=== PATIENT | male | born 1970 | race African-American/Black ===

== ENCOUNTER 2016-06-03 08:11 | Inpatient (IN) | payer MEDICAID, OTHER ==
[~2016-06-03] VITALS: Ht 162.6 cm; Wt 66.5 kg
[~2016-06-03 08:11] MED LIST: AMLO10TA2 PO; BENA20TA2 PO; CALC667C PO; FOLI0.8T2 PO; LABE200T8 PO; MINO2.5T PO; Metoclopramide Hcl PO; PANT40TA2 PO
[2016-06-03] MEDS ORDERED: hydrALAZINE HCL 20 MG/1 ML VIAL IV ONE (08:30)
[2016-06-03] MEDS ORDERED: HYDROMORPHONE 1 MG/1 ML DISP.SYRIN IV ONE (08:30)
[2016-06-03] MEDS ORDERED: ONDANSETRON 4 MG/2 ML VIAL IV ONE (08:30)
[2016-06-03] MEDS ORDERED: ONDANSETRON 4 MG/2 ML VIAL ONE (08:52)
[2016-06-03] MEDS ORDERED: HYDROMORPHONE 1 MG/1 ML DISP.SYRIN ONE (08:52)
[2016-06-03] MEDS ORDERED: hydrALAZINE HCL 20 MG/1 ML VIAL ONE (08:53)
--- NOTE | 2016-06-03 08:55 | NUR ---
Pt came for evaluation of his CANALES. A/O x 4. Stated "left in a middle of dialysis".
[2016-06-03 09:17] LABS: BASOPHILS % (AUTO) 0.6 % (0.0-2.0); EOSINOPHILS # (AUTO) 0.1 K/uL (0.0-0.7); EOSINOPHILS % (AUTO) 2.5 % (0.0-7.0); HEMATOCRIT 38.1 % (40.0-50.0); HEMOGLOBIN 12.6 g/dL (14.0-18.0); LYMPHOCYTES # (AUTO) 1.1 K/uL (0.8-4.8); MEAN CORPUSCULAR HEMOGLOBIN 29.4 uug (27.0-31.0); MEAN CORPUSCULAR HGB CONC 33 g/dL (32.0-37.0); MEAN CORPUSCULAR VOLUME 89.2 fL (82.0-92.0); MONOCYTES # (AUTO) 0.3 K/uL (0.1-1.30); MONOCYTES % (AUTO) 7.5 % (0.0-11.0); NEUTROPHILS # (AUTO) 2.2 K/uL (1.8-8.9); NEUTROPHILS % (AUTO) 60.4 % (38.5-71.5); PLATELET COUNT (AUTO) 252 K/uL (150-450); RED BLOOD CELL COUNT(AUTO) 4.27 MIL/uL (4.70-6.10); RED CELL DISTRIBUTION WIDTH 15.7 % (11.5-14.5); WHITE BLOOD COUNT (AUTO) 3.7 K/uL (4.0-11.2)
[2016-06-03 09:21] LABS: CALCIUM 8.5 mg/dL (8.5-10.1); POTASSIUM 3.7 mmol/L (3.5-5.1)
[2016-06-03 09:26] LABS: CREATININE 13.6 mg/dL (0.6-1.3)
[2016-06-03] MEDS ORDERED: LABETALOL HCL 100 MG/20 ML VIAL IV ONE ×2 (09:30→10:00)
--- NOTE | 2016-06-03 09:30 | NUR ---
Pt monitored for hypertension, medicated as ordered for CANALES and helpful; medicated for high BP; To be admitted to telemetry as indicated.
[2016-06-03] MEDS ORDERED: LABETALOL HCL 100 MG/20 ML VIAL ONE ×2 (09:42→10:21)
[2016-06-03] MEDS ORDERED: ASPIRIN 325 MG TABLET PO ONE (10:30)
[2016-06-03] MEDS ORDERED: ASPIRIN 325 MG TABLET ONE (10:33)
--- NOTE | 2016-06-03 10:57 | NUR ---
Pt. admitted to telemetry , under care of Dr. Laguna. Belongs List completed.
[2016-06-03 11:34] VITALS: BP 193/133
--- NOTE | 2016-06-03 12:00 | NUR ---
REPORT RECIEVED BY YESSENIA. PATIENT WAS BROUGHT BY ALBERT. ADMISSION ASSESSMENTS CHARTED. IV INTACT. BP STILL HIGH 194/121. DR. ALVARES NOTIFIED OF ADMISSION, WAITING FOR FURTHER ORDERS. WILL CONTINUE MONITORING.
[2016-06-03] MEDS: CALCIUM ACETATE 667 MG CAPSULE PO SCH ×2 (14:40→17:02)
[2016-06-03] MEDS: BENAZEPRIL HCL 20 MG TABLET PO SCH (14:40)
[2016-06-03] MEDS: FOLIC ACID/VITAMIN B COMP W-C TABLET PO SCH (14:40)
[2016-06-03] MEDS: MINOXIDIL 2.5 MG TABLET PO SCH ×2 (14:41→21:00)
[2016-06-03] MEDS: LABETALOL HCL 200 MG TABLET PO SCH ×2 (14:41→21:00)
[2016-06-03 16:13] VITALS: BP 168/112
[2016-06-03] MEDS: AMLODIPINE 10 MG TABLET PO SCH (17:02)
--- NOTE | 2016-06-03 17:20 | NUR ---
PATIENT C/O OF SEVERE HEADACHE. MD NOTIFIED. ORDERED DILAUDID. WILL BE ADMINISTERED.
[2016-06-03] MEDS: HYDROMORPHONE 1 MG/1 ML DISP.SYRIN IV PRN ×2 (17:38→23:28)
--- NOTE | 2016-06-03 18:18 | NUR ---
Patient nauseas during the day, vomit 200 cc. He is been dialyzed at this moment. Will continue monitoring.
[2016-06-03 20:00] VITALS: BP 143/90
--- NOTE | 2016-06-03 21:16 | NUR ---
PT HAD DIALYSIS, 1500 ML FLUID WAS TAKEN OUT. AV SHUNT ON LEFT FA INTACT, NO BLEEDING NOTED.
--- NOTE | 2016-06-03 21:42 | NUR ---
PT REFUSED MINOXIDIL, AND TRANDATE @ THIS TIME. BP 143/70 HR 66.
--- NOTE | 2016-06-03 23:30 | NUR ---
PT REQUESTED TO WARM UP HIS DINNER MEAL, ALSO C/O GENERALIZED PAIN, WAS GIVEN WITH DILAUDID PRESCRIBED. WILL CONT TO MONITOR
[2016-06-04 00:14] VITALS: BP 173/105
--- NOTE | 2016-06-04 00:26 | NUR ---
BP 173/105, HR 99. OFFERED BP MEDS BUT PT STILL REFUSING.. EPISODE OF VOMITING FOOD PARTICLES ABOUT 500ML. PAGED DR. RAMESH .
[2016-06-04 05:00] VITALS: BP 140/97
[2016-06-04] MEDS: PANTOPRAZOLE SODIUM 40 MG TABLET.DR PO SCH (06:07)
[2016-06-04] MEDS: HYDROMORPHONE 1 MG/1 ML DISP.SYRIN IV PRN ×2 (06:08→19:56)
--- NOTE | 2016-06-04 06:59 | NUR ---
BP RECHECKED IN AM 140/97, HR 98. PT VOMITED 3X DURING SHIFT, CALLED DR. RAMESH, NO RESPONSE. PT WAS GIVEN ICE CHIPS, PT STATED IT GAVE SOME RELIEF.
[2016-06-04] MEDS: LABETALOL HCL 200 MG TABLET PO SCH ×2 (09:06→21:40)
[2016-06-04] MEDS: BENAZEPRIL HCL 20 MG TABLET PO SCH (09:06)
[2016-06-04] MEDS: FOLIC ACID/VITAMIN B COMP W-C TABLET PO SCH (09:07)
[2016-06-04] MEDS: MINOXIDIL 2.5 MG TABLET PO SCH ×2 (09:07→21:40)
[2016-06-04] MEDS: AMLODIPINE 10 MG TABLET PO SCH ×2 (09:07→17:36)
[2016-06-04] MEDS: CALCIUM ACETATE 667 MG CAPSULE PO SCH ×3 (09:20→17:36)
[2016-06-04 11:41] VITALS: BP 128/83
--- NOTE | 2016-06-04 12:28 | NUR ---
PATIENT IN BED RESTING. NO S/S OF DISTRESS NOTED. COMPLIANT WITH BP MEDICATION, EXCEPT FOR PHOSLO, STATING THAT MAKES HIM NAUSEAS. NO C/O OF VOMITING DURING MY SHIFT, BUT NAUSEAS STILL CONTINUE TO BE AN ISSUE. ZOFRAN WAS ORDERED BY . SAFETY AND COMFORT PROVIDED. WILL CONTINUE MONITORING.
[2016-06-04] MEDS: ONDANSETRON 4 MG/2 ML VIAL IV PRN (14:43)
[2016-06-04 16:03] VITALS: BP 125/76
--- NOTE | 2016-06-04 18:00 | NUR ---
PATIENT IN BED WATCHING TV. NO C/O OF PAIN AT THE MOMENT. NAUSEA MEDICATION WAS EFFECTIVE, PATIENT VERBALIZED NAUSEAS WERE GONE AND HE IS ABLE TO EAT NOW. REFUSED TO TAKE HIS PHOSLO MORNING AND AFTERNOON. BP HAVE BEEN CONTROLLED, WNL NOW. DIALYSIS WAS DONE TODAY, 900CC WERE TAKEN OUT, RN SAID THAT PATIENT REFUSED TO CONTINUE WITH TREATMENT SO SHE HAD TO STOP. SAFETY AND COMFORT PROVIDED BY STAFF. WILL CONTINUE MONITORING.
[2016-06-04 19:00] VITALS: BP 130/84
--- NOTE | 2016-06-04 19:10 | NUR ---
PATIENT ALERT ORIENTED, V/S WNL NO COMPLAIN OF PAIN AT THIS TIME, NO S/S BLEEDING FROM SHUNT CONT TO MONITOR.
[2016-06-05] MEDS: HYDROMORPHONE 1 MG/1 ML DISP.SYRIN IV PRN ×3 (02:10→18:37)
--- NOTE | 2016-06-05 04:58 | NUR ---
PATIENT SLEPT MOST OF THE NIGHT, PATIENT ON PAIN MANAGEMENT, PAIN MEDS EFFECTIVE AT THIS TIME. BP STABLE, COMPLIANT WITH MEDICATIONS AT THIS TIME.
[2016-06-05 05:00] VITALS: BP 102/64
[2016-06-05] MEDS: PANTOPRAZOLE SODIUM 40 MG TABLET.DR PO SCH ×2 (06:12→09:18)
[2016-06-05] MEDS: CALCIUM ACETATE 667 MG CAPSULE PO SCH ×3 (08:00→17:00)
[2016-06-05] MEDS: FOLIC ACID/VITAMIN B COMP W-C TABLET PO SCH (09:16)
[2016-06-05] MEDS: BENAZEPRIL HCL 20 MG TABLET PO SCH (09:17)
[2016-06-05] MEDS: LABETALOL HCL 200 MG TABLET PO SCH ×2 (09:17→20:09)
[2016-06-05] MEDS: MINOXIDIL 2.5 MG TABLET PO SCH ×2 (09:18→20:09)
[2016-06-05] MEDS: AMLODIPINE 10 MG TABLET PO SCH ×2 (09:18→17:00)
[2016-06-05 11:47] VITALS: BP 90/52
[2016-06-05] MEDS: ONDANSETRON 4 MG/2 ML VIAL IV PRN (13:56)
[2016-06-05 19:00] VITALS: BP 99/64
--- NOTE | 2016-06-05 20:10 | NUR ---
MINOXIDIL AND LABETALOL HELD. BP 99/64
[2016-06-06] MEDS: HYDROMORPHONE 1 MG/1 ML DISP.SYRIN IV PRN (00:35)
[2016-06-06 04:00] VITALS: BP 96/68
--- NOTE | 2016-06-06 06:22 | NUR ---
END OF SHIFT NOTE: PT IN BED RESTING, IN NO ACUTE SIGNS OF DISTRESS. NO C/O N/V. C/O SHOULDER PAIN, CONTROLLED WITH DILAUDID PRESCRIBED. BP MEDS HELD DUE TO LOW BP. SAFETY MAINTAINED. CALL LIGHT WITHIN REACH.
[2016-06-06] MEDS: CALCIUM ACETATE 667 MG CAPSULE PO SCH ×2 (08:00→11:52)
[2016-06-06] MEDS: AMLODIPINE 10 MG TABLET PO SCH (08:27)
[2016-06-06] MEDS: MINOXIDIL 2.5 MG TABLET PO SCH (08:27)
[2016-06-06] MEDS: FOLIC ACID/VITAMIN B COMP W-C TABLET PO SCH (08:27)
[2016-06-06] MEDS: BENAZEPRIL HCL 20 MG TABLET PO SCH (08:27)
[2016-06-06] MEDS: LABETALOL HCL 200 MG TABLET PO SCH (08:28)
[2016-06-06 11:17] VITALS: BP 105/73
--- NOTE | 2016-06-06 13:30 | NUR ---
Patient in bed resting in no acute distress. Antihypertensives not given d/t to blood pressure on the low side without symptoms. Refused other morning meds. Patient ordered to be discharged by Dr. Laguna today. Patient started c/o pain and "not feeling good" Requested pain and nausea medication which was administered as ordered. Discharge instructions given and with copies given to patient. Will continue monitoring.
--- NOTE | 2016-06-06 16:00 | NUR ---
Patient is sleeping soundly in no apparent pain with adequate respiratory function noted.
--- NOTE | 2016-06-06 17:00 | NUR ---
PT IS READY FOR DISCHARGE WITH STABLE VITAL SIGNS AND WITHOUT C/O PAIN OR IN ACUTE DISTRESS. DISCHARGED HOME IN STABLE CONDITION BY CAR.
== END 2016-06-06 17:00 | disposition home or self-care (01) | DRG 194 ==
LOC: ER 08:13 → TELE 10:33 → MED 06-04 17:40
PROVIDERS: ADMIT Internal Medicine; ATTEND Internal Medicine
PROC: 5A1D60Z (ICD-10-PCS; principal; 2016-06-03)
DX: I13.2 Hypertensive heart and chronic kidney disease with heart failure and with stage 5 chronic kidney disease, or end stage renal disease (principal); N18.6 End stage renal disease; Z99.2 Dependence on renal dialysis; D64.9 Anemia, unspecified; K21.9 Gastro-esophageal reflux disease without esophagitis; K29.70 Gastritis, unspecified, without bleeding; Z91.19 Patient's noncompliance with other medical treatment and regimen; F17.200 Nicotine dependence, unspecified, uncomplicated; F12.90 Cannabis use, unspecified, uncomplicated; G89.4 Chronic pain syndrome; R07.9 Chest pain, unspecified; Z91.15 Patient's noncompliance with renal dialysis; I50.32 Chronic diastolic (congestive) heart failure
CPT/HCPCS: 36415; 70030-TC; 70450; 71010; 85025; 90937; 93005; A4663; J0360; J1170; J2405; J3490

== ENCOUNTER 2016-06-24 19:16 | Inpatient (IN) | payer OTHER ==
[~2016-06-24] VITALS: Ht 170.2 cm; Wt 72.6 kg
[2016-06-24] MEDS ORDERED: CLONIDINE HCL 0.2 MG TABLET PO ONE (20:00)
[2016-06-24] MEDS ORDERED: hydrALAZINE HCL 20 MG/1 ML VIAL IV ONE ×2 (20:00→20:30)
--- NOTE | 2016-06-24 20:12 | NUR ---
PT HAVING NOSEBLEED, PT RESTLESS , BP HIGH, SL TO RT FA INSERTED, GIVEN HYDRALAZINE IV, PT ENCOURAGED TO RELAX .
[2016-06-24 20:13] LABS: BASOPHILS % (AUTO) 0.5 % (0.0-2.0); EOSINOPHILS # (AUTO) 0.1 K/uL (0.0-0.7); EOSINOPHILS % (AUTO) 1.4 % (0.0-7.0); HEMATOCRIT 28.5 % (36.7-47.1); HEMOGLOBIN 9.5 g/dL (12.5-16.3); LYMPHOCYTES # (AUTO) 1.7 K/uL (20.0-40.0); LYMPHOCYTES % (AUTO) 18.2 % (20.5-51.5); MEAN CORPUSCULAR HEMOGLOBIN 29.2 uug (23.8-33.4); MEAN CORPUSCULAR HGB CONC 33 g/dL (32.5-36.3); MEAN CORPUSCULAR VOLUME 87.5 fL (73.0-96.2); MONOCYTES # (AUTO) 0.5 K/uL (2.0-10.0); MONOCYTES % (AUTO) 5.8 % (0.0-11.0); NEUTROPHILS # (AUTO) 6.8 K/uL (1.8-8.9); NEUTROPHILS % (AUTO) 74.1 % (38.5-71.5); PLATELET COUNT (AUTO) 324 K/uL (152-348); RED BLOOD CELL COUNT(AUTO) 3.25 MIL/uL (4.06-5.63); RED CELL DISTRIBUTION WIDTH 15.1 % (12.1-16.2); WHITE BLOOD COUNT (AUTO) 9.1 K/uL (3.6-10.2)
[2016-06-24] MEDS ORDERED: CLONIDINE HCL 0.2 MG TABLET ONE (20:14)
[2016-06-24] MEDS ORDERED: hydrALAZINE HCL 20 MG/1 ML VIAL ONE ×2 (20:15→20:42)
[2016-06-24 20:22] LABS: POTASSIUM 5.3 mmol/L (3.5-5.1)
[2016-06-24 20:24] LABS: CREATININE 18.1 mg/dL (0.6-1.3)
--- NOTE | 2016-06-24 20:40 | NUR ---
2ND HYDRALAZINE IV DOSE GIVEN FOR HIGH SBP 205,PT TRYING TO RELAX.SUPPORTIVE MEASURES DONE.
[2016-06-24] MEDS ORDERED: LABETALOL HCL 100 MG/20 ML VIAL IV ONE (21:00)
[2016-06-24] MEDS ORDERED: LABETALOL 20 MG/4 ML VIAL IV ONE (21:09)
[2016-06-24] MEDS ORDERED: ONDANSETRON 4 MG/2 ML VIAL IV ONE ×2 (21:30)
[2016-06-24] MEDS ORDERED: ONDANSETRON 4 MG/2 ML VIAL ONE ×2 (21:32→21:33)
--- NOTE | 2016-06-24 21:35 | NUR ---
PT VOMITED 2X BROWNISH EMESIS, ZOFRAN IV GIVEN.
--- NOTE | 2016-06-24 23:20 | NUR ---
VALE speaking with [facility] Nephrology (Dr. Laguna).
--- NOTE | 2016-06-24 23:50 | NUR ---
Pt. admitted to TELE, under care of Dr. Laguna Belongs List completed
[2016-06-25] VITALS (18 sets, daily range): BP systolic 114–183; BP diastolic 70–130
--- NOTE | 2016-06-25 01:00 | NUR ---
ADMITTED PT ALERT,ORIENTED AMBULATORY, DENIES ANY CHEST PAIN AT THIS TIME, NOSEBLEED STOPPED, NO NASAL PACKING, BP ELEVATED, PT STATED HE NORMALLY RUNS HIGH, ASYMPTOMATIC, NO HEADACHE, L AVF ,R HEPLOCK, REFUSED BLOOD DRAW PT WANTED RESCHEDULE NEXT DRAW AT 0600. WILL CONTINUE TO MONITOR.CALL LIGHT AT REACHED
--- NOTE | 2016-06-25 04:45 | NUR ---
PAGED REGARDING PT BP 183/110 HR 95 WAS ABLE TO CONTACT AND SPOKE TO DR. ALVARES BUT GOT DISCONNECTED. MADE ANOTHER CALL BUT MD DIDN'T ANSWER THE CALL, ANSWERING SERVICE JUST LEFT A MESSAGE. PT ASLEEP AT THIS TIME, NO COMPLAINS.
[2016-06-25] MEDS ORDERED: ACETAMINOPHEN 325 MG TABLET PO PRN (05:30)
[2016-06-25] MEDS: BENAZEPRIL HCL 20 MG TABLET PO SCH (05:37)
[2016-06-25] MEDS ORDERED: AMLODIPINE 5 MG TABLET ONE (05:41)
[2016-06-25] MEDS ORDERED: BENAZEPRIL HCL 20 MG TABLET ONE (05:42)
[2016-06-25] MEDS ORDERED: [UNRECOGNIZED DRUG - OTHER] PO SCH (07:30)
[2016-06-25] MEDS: PANTOPRAZOLE SODIUM 40 MG TABLET.DR PO SCH (07:41)
[2016-06-25] MEDS: METOCLOPRAMIDE HCL 5 MG TABLET PO SCH ×3 (07:43→18:27)
[2016-06-25] MEDS ORDERED: DESMOPRESSIN 0.1 MG TABLET PO SCH (07:45)
[2016-06-25] MEDS: HYDROMORPHONE 1 MG/1 ML DISP.SYRIN IV PRN ×2 (07:57→23:53)
--- NOTE | 2016-06-25 08:00 | NUR ---
C/O GENERALIZED PAIN 10/09, N/V. MEDICATED WITH DILAUDID AND ZOFRAN BP 174/114 ROUTINE BP MEDS GIVEN. NO SIGNS OF DISTRESS. CLOSELY MONITORED
[2016-06-25] MEDS: ONDANSETRON 4 MG/2 ML VIAL IV PRN (08:01)
[2016-06-25] MEDS: MINOXIDIL 2.5 MG TABLET PO SCH ×2 (08:02→21:16)
[2016-06-25] MEDS: AMLODIPINE 5 MG TABLET PO SCH ×2 (08:03→21:18)
[2016-06-25] MEDS: FOLIC ACID/VITAMIN B COMP W-C TABLET PO SCH (08:03)
[2016-06-25] MEDS: LABETALOL HCL 200 MG TABLET PO SCH ×2 (08:03→21:00)
[2016-06-25] MEDS: CALCIUM ACETATE 667 MG CAPSULE PO SCH ×4 (08:03→18:00)
[2016-06-25] MEDS ORDERED: AMLODIPINE 10 MG TABLET PO SCH (09:00)
--- NOTE | 2016-06-25 11:30 | NUR ---
DR ALVARES CALLED CT HEAD POSITIVE FOR BLEDING, GAVE ORDER FOR PATIENT TO TRANSFER TO ICU FOR HIGHER LEVEL OF CARE
--- NOTE | 2016-06-25 11:45 | NUR ---
SHAKER REPAIRER AND ICU NOTIFIED, PT TRANSFERRED TO ICC, AWAKE ALERT AND COHERENT. REPORT GIVEN TO ICU STAFF
--- NOTE | 2016-06-25 12:08 | NUR ---
At this time patient brought down from [facility]. unit. awake, alert oriented neurologically intact on room air. swallow evaluation done patient able to swallow with no coughing or signs of aspiration.
--- NOTE | 2016-06-25 13:05 | NUR ---
patient refused phoslo medication.
--- NOTE | 2016-06-25 13:45 | NUR ---
Raúl RODRÍGUEZ for neurosurgeon in the unit to see lázaro, full report given. See orders.
--- NOTE | 2016-06-25 14:52 | NUR ---
At this time patient refusing to have blood pressure cuff and pulse ox. on. Educated on the need to monitor blood pressure and saturation. on.
--- NOTE | 2016-06-25 15:11 | NUR ---
At this time patient removed pulse oxy-meter.
[2016-06-26] VITALS (11 sets, daily range): BP systolic 90–132; BP diastolic 51–75
[2016-06-26 05:02] LABS: BASOPHILS % (AUTO) 0.3 % (0.0-2.0); EOSINOPHILS # (AUTO) 0.1 K/uL (0.0-0.7); EOSINOPHILS % (AUTO) 1.3 % (0.0-7.0); HEMATOCRIT 22.3 % (36.7-47.1); HEMOGLOBIN 7.6 g/dL (12.5-16.3); LYMPHOCYTES # (AUTO) 1.1 K/uL (20.0-40.0); LYMPHOCYTES % (AUTO) 27.8 % (20.5-51.5); MEAN CORPUSCULAR HEMOGLOBIN 29.6 uug (23.8-33.4); MEAN CORPUSCULAR HGB CONC 34 g/dL (32.5-36.3); MEAN CORPUSCULAR VOLUME 86.8 fL (73.0-96.2); MONOCYTES # (AUTO) 0.3 K/uL (2.0-10.0); MONOCYTES % (AUTO) 8.1 % (0.0-11.0); NEUTROPHILS # (AUTO) 2.3 K/uL (1.8-8.9); NEUTROPHILS % (AUTO) 62.5 % (38.5-71.5); PLATELET COUNT (AUTO) 296 K/uL (152-348); RED BLOOD CELL COUNT(AUTO) 2.57 MIL/uL (4.06-5.63); RED CELL DISTRIBUTION WIDTH 14.9 % (12.1-16.2); WHITE BLOOD COUNT (AUTO) 3.9 K/uL (3.6-10.2)
[2016-06-26 05:09] LABS: ALBUMIN 2.9 g/dL (3.4-5.0); BILIRUBIN,TOTAL 0.7 mg/dL (0.2-1.0); CALCIUM 8.1 mg/dL (8.5-10.1); MAGNESIUM 2.4 mg/dL (1.8-2.4); PHOSPHOROUS 6.6 mg/dL (2.5-4.9); POTASSIUM 5.3 mmol/L (3.5-5.1); TOTAL PROTEIN, SERUM 6.8 g/dL (6.4-8.2)
[2016-06-26 05:23] LABS: CREATININE 15.1 mg/dL (0.6-1.3)
[2016-06-26] MEDS: HYDROMORPHONE 1 MG/1 ML DISP.SYRIN IV PRN ×2 (05:31→20:31)
--- NOTE | 2016-06-26 06:00 | NUR ---
CT HEAD done. VOMITED 100 cc.
--- NOTE | 2016-06-26 08:15 | NUR ---
Dr. Laguna and Dr. Pelayo here to see pt. Full report given. New orders received. Pt to have dialysis today and MD stated it was okay to downgrade pt to telemetry status.
[2016-06-26] MEDS: CALCIUM ACETATE 667 MG CAPSULE PO SCH ×3 (08:28→17:06)
[2016-06-26] MEDS: METOCLOPRAMIDE HCL 5 MG TABLET PO SCH ×3 (08:28→16:12)
[2016-06-26] MEDS: FOLIC ACID/VITAMIN B COMP W-C TABLET PO SCH (08:28)
[2016-06-26] MEDS: PANTOPRAZOLE SODIUM 40 MG TABLET.DR PO SCH (08:28)
[2016-06-26] MEDS: BENAZEPRIL HCL 20 MG TABLET PO SCH (08:29)
[2016-06-26] MEDS: AMLODIPINE 5 MG TABLET PO SCH ×2 (08:48→20:33)
[2016-06-26] MEDS: LABETALOL HCL 200 MG TABLET PO SCH ×2 (08:48→20:34)
[2016-06-26] MEDS: MINOXIDIL 2.5 MG TABLET PO SCH ×2 (08:48→20:33)
--- NOTE | 2016-06-26 08:54 | NUR ---
AM oral blood pressure meds held in light of dialysis for this morning.
--- NOTE | 2016-06-26 09:34 | NUR ---
Dr. Olson (Neurologist) here to see pt. Full report given. No new orders received.
--- NOTE | 2016-06-26 11:03 | NUR ---
Physical therapy here to see pt at the bedside.
--- NOTE | 2016-06-26 12:35 | NUR ---
planer tailer here at the bedside with the pt for hemodialysis.
--- NOTE | 2016-06-26 13:07 | NUR ---
1st unit of PRBC started with hemodialysis. Will closely monitor pt for any signs of blood transfusion reactions.
--- NOTE | 2016-06-26 14:00 | NUR ---
1st unit of PRBC completed with dialysis. Pt tolerated blood transfusion well and no adverse reactions reported or noted from the pt.
--- NOTE | 2016-06-26 14:50 | NUR ---
Hemodialysis completed. 300ml of hemodialysis fluid removed. Pt stable and nad noted upon completion of dialysis.
--- NOTE | 2016-06-26 15:38 | NUR ---
Full telephone SBAR report given to TONIO Duarte 2nd floor.
--- NOTE | 2016-06-26 15:50 | NUR ---
Pt wheeled up to the 2nd floor tele rm #[id number] by DRY CHAIN PULLER for transfer. All belongings reviewed and taken with the pt. Pt stable and nad noted upon leaving the unit.
--- NOTE | 2016-06-26 16:00 | NUR ---
PT IS LAYING IN BED COMFORTABLY. NO S/S OF RESPIRATORY DISTRESS NOTED. NO PAIN REPORTED. ALL SAFETY NEEDS ARE MET. IV INTACT/PATENT. WILL CONTINUE TO MONITOR.
--- NOTE | 2016-06-26 19:04 | NUR ---
PT IS LAYING IN BED COMFORTABLY. NO S/S OF RESPIRATORY DISTRESS NOTED. ALL SAFETY NEEDS ARE MET. PT IS SINUS RHYTHM ON TELE. NO PAIN NOTED.
--- NOTE | 2016-06-26 21:00 | NUR ---
PATIENT REFUSED 2100 MEDS LABETALOL, MINOXIDIL, AND AMLODIPINE, BP IS 121/69 AND HR 98 AT THIS TIME. WILL CONTINUE TO MONITOR.
--- NOTE | 2016-06-26 21:13 | NUR ---
PATIENT C/O CANALES AND BACK PAIN, REQUESTING PAIN MED, PRN DILAUDID 1MG GIVEN PRESCRIBED, WITH GOOD RELIEF. WILL CONTINUE TO MONITOR.
[2016-06-27 00:40] VITALS: BP 127/76
[2016-06-27] MEDS: ONDANSETRON 4 MG/2 ML VIAL IV PRN (00:42)
[2016-06-27 04:00] VITALS: BP 135/86
[2016-06-27] MEDS: PANTOPRAZOLE SODIUM 40 MG TABLET.DR PO SCH (06:25)
--- NOTE | 2016-06-27 06:30 | NUR ---
PATIENT REFUSED PROTONIX AT THIS TIME.
--- NOTE | 2016-06-27 06:44 | NUR ---
PATIENT SLEPT INTERMITTENTLY THROUGH THE NIGHT. NO S/S OF RESPIRATORY DISTRESS NOTED/REPORTED. PAIN AND NAUSEA MANAGED WITH PRN MEDS PRESCRIBED, WITH GOOD RELIEF. ALL NEEDS MET. ON TELE SR ON THE MONITOR, HR-93. CALL LIGHT IN REACH. SAFETY AND COMFORT MEASURES PROVIDED.
--- NOTE | 2016-06-27 07:46 | NUR ---
PT IS LAYING IN BED COMFORTABLY. NO S/S OF RESPIRATORY DISTRESS NOTED. NO PAIN NOTED. ALL SAFETY NEEDS ARE MET. IV INTACT/PATENT. WILL CONTINUE TO MONITOR.
[2016-06-27] MEDS: FOLIC ACID/VITAMIN B COMP W-C TABLET PO SCH (08:14)
[2016-06-27] MEDS: MINOXIDIL 2.5 MG TABLET PO SCH (08:15)
[2016-06-27] MEDS: CALCIUM ACETATE 667 MG CAPSULE PO SCH ×2 (08:15→12:00)
[2016-06-27] MEDS: METOCLOPRAMIDE HCL 5 MG TABLET PO SCH ×2 (08:15→11:30)
[2016-06-27] MEDS: LABETALOL HCL 200 MG TABLET PO SCH (08:16)
[2016-06-27] MEDS: BENAZEPRIL HCL 20 MG TABLET PO SCH (08:16)
[2016-06-27] MEDS: AMLODIPINE 5 MG TABLET PO SCH (08:16)
[2016-06-27 11:54] VITALS: BP 117/74
--- NOTE | 2016-06-27 12:28 | NUR ---
DISCHARGE NOTE; PT IS DRESSED, NO S/S O RESPIRATORY DISTRESS NOTED. PT IS ALERT AND ORIENTEDX3, NO WEAKNESS NOTED. GAIT IS STEADY. PT IS ABLE TO FOLLOW COMMANDS. NO DIZZINESS OR PAIN IS REPORTED. REMOVED IV AND WRISTBAND. EDUCATION IS PROVIDED. PT REFUSED TO BE WHEELCHAIRED DOWN TO EXIT, STATED "I FEEL FINE, I WANT TO WALK. I DON;T FEEL DIZZY". SAFETY EDUCATION IS PROVIDED.
== END 2016-06-27 12:15 | disposition home or self-care (01) | DRG 44 ==
LOC: ER 19:23 → TELE 06-25 00:38 → MED 06-25 10:56 → CCU 06-25 12:28 → TELE 06-26 15:59
PROVIDERS: ADMIT Internal Medicine; ATTEND Internal Medicine
PROC: 5A1D60Z (ICD-10-PCS; principal; 2016-06-25)
PROC: 30233N1 Transfusion of Nonautologous Red Blood Cells into Peripheral Vein, Percutaneous Approach (ICD-10-PCS; 2016-06-26)
DX: I61.9 Nontraumatic intracerebral hemorrhage, unspecified (principal); I21.4 Non-ST elevation (NSTEMI) myocardial infarction; I13.2 Hypertensive heart and chronic kidney disease with heart failure and with stage 5 chronic kidney disease, or end stage renal disease; N25.81 Secondary hyperparathyroidism of renal origin; I16.1 Hypertensive emergency; N18.6 End stage renal disease; Z99.2 Dependence on renal dialysis; Z91.19 Patient's noncompliance with other medical treatment and regimen; Z91.15 Patient's noncompliance with renal dialysis; D64.9 Anemia, unspecified; E66.9 Obesity, unspecified; E87.5 Hyperkalemia; I50.9 Heart failure, unspecified; K21.9 Gastro-esophageal reflux disease without esophagitis; R04.0 Epistaxis; Z91.14 Patient's other noncompliance with medication regimen; R51 Headache
CPT/HCPCS: 36415; 70030-TC; 70450; 71010; 83735; 84100; 85025; 85730; 86850; 86900; 86901; 86920; 90937; 93005; 97001; A4663; J0360; J1170; J2405; J3490; J7050; J8597; P9016-BL; P9021

== ENCOUNTER 2016-10-07 20:44 | Emergency (ER) | payer OTHER ==
[~2016-10-07] VITALS: Ht 170.2 cm; Wt 63.5 kg
[2016-10-07] MEDS ORDERED: HYDROMORPHONE 1 MG/1 ML DISP.SYRIN IM ONE (21:45)
[2016-10-07] MEDS ORDERED: diphenhydrAMINE 50 MG/1 ML VIAL IM ONE (21:45)
[2016-10-07] MEDS ORDERED: CLONIDINE HCL 0.2 MG TABLET PO ONE ×2 (21:45→23:00)
[2016-10-07] MEDS ORDERED: HYDROMORPHONE 2 MG/1 ML DISP.SYRIN ONE (21:54)
[2016-10-07] MEDS ORDERED: diphenhydrAMINE 50 MG/1 ML VIAL ONE (21:54)
[2016-10-07] MEDS ORDERED: CLONIDINE HCL 0.2 MG TABLET ONE ×2 (21:55→23:16)
[2016-10-07 22:03] LABS: BASOPHILS % (AUTO) 0.3 % (0.0-2.0); EOSINOPHILS # (AUTO) 0.1 K/uL (0.0-0.7); EOSINOPHILS % (AUTO) 2.4 % (0.0-7.0); HEMATOCRIT 30.1 % (40-50); HEMOGLOBIN 9.9 G/DL (14.0-18.0); LYMPHOCYTES # (AUTO) 1.2 K/UL (0.8-4.8); LYMPHOCYTES % (AUTO) 28.1 % (20.5-51.5); MEAN CORPUSCULAR HEMOGLOBIN 29.5 UUG (27.0-31.0); MEAN CORPUSCULAR HGB CONC 33 g/dL (32.0-37.0); MEAN CORPUSCULAR VOLUME 89.5 FL (82.0-92.0); MONOCYTES # (AUTO) 0.4 K/UL (0.1-1.30); NEUTROPHILS # (AUTO) 2.7 K/UL (1.8-8.9); NEUTROPHILS % (AUTO) 60.2 % (38.5-71.5); PLATELET COUNT (AUTO) 315 K/UL (150-450); RED BLOOD CELL COUNT(AUTO) 3.37 MIL/UL (4.7-6.1); WHITE BLOOD COUNT (AUTO) 4.4 K/UL (4.0-11.2)
[2016-10-07 22:09] LABS: POTASSIUM 3.4 mmol/L (3.5-5.1)
[2016-10-07 22:18] LABS: CREATININE 7.5 mg/dL (0.6-1.3)
[2016-10-07 22:21] LABS: BILIRUBIN,DIRECT 0.1 mg/dL (0.0-0.2); BILIRUBIN,TOTAL 0.8 mg/dL (0.2-1.0); TOTAL PROTEIN, SERUM 8.5 g/dL (6.4-8.2)
--- NOTE | 2016-10-07 23:37 | NUR ---
ER MD aware of patient continuing to have elevated BP. Per Dr Bray, continue to monitor pt.
[2016-10-08] MEDS ORDERED: CLONIDINE HCL 0.1 MG TABLET PO ONE (00:45)
[2016-10-08] MEDS ORDERED: CLONIDINE HCL 0.1 MG TABLET ONE (00:55)
--- NOTE | 2016-10-08 01:51 | NUR ---
Patient is cleared for discharge by Dr Bray. Patient notified. Patient is at bedside collecting his belongings.
--- NOTE | 2016-10-08 01:54 | NUR ---
Patient discharged to home in stable conditon. Written and verbal after care instructions given. Patient verbalizes understanding of instructions. Ambulated from ER with stable gait. All belongings with patient.
[2016-10-08 01:55] VITALS: BP 158/96
== END 2016-10-08 01:55 | disposition home or self-care (01) ==
LOC: ER 20:45
DX: I13.2 Hypertensive heart and chronic kidney disease with heart failure and with stage 5 chronic kidney disease, or end stage renal disease (principal); N18.6 End stage renal disease; Z99.2 Dependence on renal dialysis; F17.200 Nicotine dependence, unspecified, uncomplicated; Z91.19 Patient's noncompliance with other medical treatment and regimen; K21.9 Gastro-esophageal reflux disease without esophagitis
CPT/HCPCS: 36415; 70030-TC; 71010; 85025; 85730; 93005; A4663; J1170; J1200

== ENCOUNTER 2016-11-17 18:20 | Inpatient (IN) | payer OTHER ==
[~2016-11-17] VITALS: Ht 170.2 cm; Wt 65.0 kg
--- NOTE | 2016-11-17 18:57 | NUR ---
PT.BP 224/136 NOTIFIED.
[2016-11-17] MEDS ORDERED: ONDANSETRON 4 MG/2 ML VIAL IV ONE ×2 (19:00→21:00)
[2016-11-17] MEDS ORDERED: HYDROMORPHONE 1 MG/1 ML DISP.SYRIN IV ONE (19:00)
--- NOTE | 2016-11-17 19:05 | NUR ---
PT.WAS SEEN BY WITH NEW ORDERS
[2016-11-17] MEDS ORDERED: LABETALOL HCL 100 MG/20 ML VIAL IV ONE ×3 (19:15→20:30)
[2016-11-17] MEDS ORDERED: hydrALAZINE HCL 20 MG/1 ML VIAL IV ONE ×3 (19:15→20:30)
[2016-11-17] MEDS ORDERED: hydrALAZINE HCL 20 MG/1 ML VIAL ONE ×3 (19:35→20:40)
[2016-11-17] MEDS ORDERED: ONDANSETRON 4 MG/2 ML VIAL ONE ×2 (19:35→21:02)
[2016-11-17] MEDS ORDERED: LABETALOL HCL 100 MG/20 ML VIAL ONE (19:35)
[2016-11-17] MEDS ORDERED: HYDROMORPHONE 2 MG/1 ML DISP.SYRIN ONE (19:35)
[2016-11-17 19:39] LABS: BILIRUBIN,DIRECT 0.2 mg/dL (0.0-0.2); BILIRUBIN,TOTAL 0.9 mg/dL (0.2-1.0); POTASSIUM 3.7 mmol/L (3.5-5.1); TOTAL PROTEIN, SERUM 9.2 g/dL (6.4-8.2)
[2016-11-17 19:44] LABS: CREATININE 11.6 mg/dL (0.6-1.3)
[2016-11-17 20:43] LABS: HEMATOCRIT 32.6 % (40-50); HEMOGLOBIN 10.5 G/DL (14.0-18.0); MEAN CORPUSCULAR HEMOGLOBIN 28.6 UUG (27.0-31.0); MEAN CORPUSCULAR HGB CONC 32 g/dL (32.0-37.0); MEAN CORPUSCULAR VOLUME 88.7 FL (82.0-92.0); NEUTROPHILS % (AUTO) 72.8 % (38.5-71.5); PLATELET COUNT (AUTO) 291 K/UL (150-450); RED BLOOD CELL COUNT(AUTO) 3.67 MIL/UL (4.7-6.1); WHITE BLOOD COUNT (AUTO) 4.8 K/UL (4.0-11.2)
[2016-11-17 20:44] LABS: EOSINOPHILS # (AUTO) 0.1 K/uL (0.0-0.7); EOSINOPHILS % (AUTO) 2.2 % (0.0-7.0); LYMPHOCYTES # (AUTO) 0.9 K/UL (0.8-4.8); MONOCYTES # (AUTO) 0.3 K/UL (0.1-1.30); NEUTROPHILS # (AUTO) 3.5 K/UL (1.8-8.9)
--- NOTE | 2016-11-17 20:50 | NUR ---
Call placed to [facility] Nephrology, Dr. Laguna will be paged.
--- NOTE | 2016-11-17 21:04 | NUR ---
Pt. admitted to [facility], under care of Dr. ALVARES. Belongs List completed.
--- NOTE | 2016-11-17 21:35 | NUR ---
Admitted patient from ER via [place], awake and alert with limited conversation.DX: Hypertensive Urgency Complaint on nausea and vomiting at this time in small emesis yellow in color with small amount of food particles. Routine admission care done. Plan of care initiated..
[2016-11-17 22:03] VITALS: BP 197/115
[2016-11-17 22:13] VITALS: BP 194/116
[2016-11-18] VITALS (10 sets, daily range): BP systolic 111–234; BP diastolic 65–137
[2016-11-18] MEDS ORDERED: ACETAMINOPHEN 325 MG TABLET PO PRN (00:30)
[2016-11-18] MEDS ORDERED: HYDROMORPHONE 1 MG/1 ML DISP.SYRIN IV PRN (00:30)
[2016-11-18] MEDS ORDERED: diphenhydrAMINE 50 MG/1 ML VIAL IV PRN (00:30)
[2016-11-18] MEDS ORDERED: ZOLPIDEM 5 MG TABLET PO PRN (00:30)
--- NOTE | 2016-11-18 02:01 | NUR ---
Complaint of generalized pain, Dilaudid 0.5 mg given as ordered and needed. Will monitor.
[2016-11-18] MEDS ORDERED: HYDROMORPHONE 2 MG/1 ML DISP.SYRIN ONE (02:07)
[2016-11-18] MEDS: ONDANSETRON 4 MG/2 ML VIAL IV PRN ×3 (05:42→19:58)
--- NOTE | 2016-11-18 05:47 | NUR ---
Had nausea and vomiting, Zofran given as ordered and needed. Will monitor. Bp still high, 212/137 Dr. Laguna aware with order to give the Minoxidil 5mg and Benazepril 20 mg now.
[2016-11-18] MEDS: MINOXIDIL 2.5 MG TABLET PO SCH ×2 (05:52→20:22)
[2016-11-18] MEDS ORDERED: ONDANSETRON 4 MG/2 ML VIAL ONE (05:53)
[2016-11-18] MEDS ORDERED: BENAZEPRIL HCL 20 MG TABLET ONE (06:01)
[2016-11-18] MEDS: BENAZEPRIL HCL 20 MG TABLET PO SCH (06:01)
[2016-11-18] MEDS ORDERED: MINOXIDIL 2.5 MG TABLET ONE (06:02)
[2016-11-18 07:56] LABS: HEMATOCRIT 33.9 % (40-50); HEMOGLOBIN 11.1 G/DL (14.0-18.0); MEAN CORPUSCULAR HGB CONC 33 g/dL (32.0-37.0); MEAN CORPUSCULAR VOLUME 88.6 FL (82.0-92.0); RED BLOOD CELL COUNT(AUTO) 3.83 MIL/UL (4.7-6.1); WHITE BLOOD COUNT (AUTO) 6.5 K/UL (4.0-11.2)
[2016-11-18 07:57] LABS: BASOPHILS % (AUTO) 0.3 % (0.0-2.0); EOSINOPHILS % (AUTO) 1.2 % (0.0-7.0); LYMPHOCYTES % (AUTO) 29.4 % (20.5-51.5); MONOCYTES % (AUTO) 7.3 % (0.0-11.0); NEUTROPHILS % (AUTO) 61.8 % (38.5-71.5); PLATELET COUNT (AUTO) 291 K/UL (150-450)
--- NOTE | 2016-11-18 08:00 | NUR ---
BP STILL 190/117 ROUTINE MEDS GIVEN PER MD
[2016-11-18 08:07] LABS: EOSINOPHILS # (AUTO) 1.2 K/uL (0.0-0.7); LYMPHOCYTES # (AUTO) 29.4 K/UL (0.8-4.8); MONOCYTES # (AUTO) 7.3 K/UL (0.1-1.30); NEUTROPHILS # (AUTO) 61.8 K/UL (1.8-8.9)
[2016-11-18 08:08] LABS: BASOPHILS # (AUTO) 0.3 K/uL (0.0-8.0)
[2016-11-18] MEDS: METOCLOPRAMIDE HCL 5 MG TABLET PO SCH ×3 (08:18→16:55)
[2016-11-18] MEDS: LABETALOL HCL 200 MG TABLET PO SCH ×2 (08:19→20:23)
[2016-11-18] MEDS: FOLIC ACID/VITAMIN B COMP W-C TABLET PO SCH (08:20)
[2016-11-18] MEDS: HYDROMORPHONE 2 MG/1 ML DISP.SYRIN IV PRN ×2 (09:14→23:58)
[2016-11-18 09:31] LABS: MAGNESIUM 2.3 mg/dL (1.8-2.4); POTASSIUM 4.5 mmol/L (3.5-5.1)
[2016-11-18 09:35] LABS: CREATININE 13.4 mg/dL (0.6-1.3)
[2016-11-18 09:36] LABS: PHOSPHOROUS 8.5 mg/dL (2.5-4.9)
[2016-11-18] MEDS: hydrALAZINE HCL 50 MG TABLET PO SCH ×3 (09:49→21:52)
--- NOTE | 2016-11-18 12:00 | NUR ---
HD COMPLETED 200 ML OF FLUID
--- NOTE | 2016-11-18 15:58 | NUR ---
CONTINUE CURRENT TX PLAN
--- NOTE | 2016-11-18 20:00 | NUR ---
NSG: pt received a/o x 4, c/o n/v. denies other discomfort. lungs sound clear to auscultate. tele, ST with hr 106. has left forearm av shunt. ambulatory. cont with treatment plan.
--- NOTE | 2016-11-19 05:21 | NUR ---
nsg: no acute distress noted. slept entire night. vomiting episode x 2. medicated with zofran. cont with treatment plan.
[2016-11-19 05:44] VITALS: BP 91/53
[2016-11-19] MEDS: hydrALAZINE HCL 50 MG TABLET PO SCH (05:44)
[2016-11-19] MEDS ORDERED: MINO2.5T PO (07:56)
[2016-11-19] MEDS ORDERED: BENA20TA2 PO (07:56)
[2016-11-19] MEDS: MINOXIDIL 2.5 MG TABLET PO SCH (08:05)
[2016-11-19] MEDS: BENAZEPRIL HCL 20 MG TABLET PO SCH (08:05)
[2016-11-19] MEDS: LABETALOL HCL 200 MG TABLET PO SCH (08:06)
[2016-11-19] MEDS: FOLIC ACID/VITAMIN B COMP W-C TABLET PO SCH (08:06)
[2016-11-19] MEDS: METOCLOPRAMIDE HCL 5 MG TABLET PO SCH ×2 (08:14→12:04)
--- NOTE | 2016-11-19 08:30 | NUR ---
SEEN BY DR ALVARES WITH ORDERS
--- NOTE | 2016-11-19 10:28 | NUR ---
RESTING COMFORTABLY NO SIGNS OF PAIN OR DISTRESS TURBINE TECHNICIAN AWARE OF DC PLANNING PT TO GO BACK TO HIS APARTMENT
[2016-11-19 11:14] VITALS: BP 101/54
--- NOTE | 2016-11-19 12:45 | NUR ---
DISCHARGED HOME STABLE WITH FOLLOW-UP INSTRUCTION WITH PCP
[2017-01-21] MEDS ORDERED: TIZA4CAP PO (07:51)
[2017-01-21] MEDS ORDERED: PANT40TA2 PO (07:51)
== END 2016-11-19 12:45 | disposition home or self-care (01) | DRG 470 ==
LOC: ER 18:25 → TELE-TD 21:20 → TELE 11-18 19:56 → MED 11-19 10:15
PROVIDERS: ADMIT Internal Medicine; ATTEND Internal Medicine
PROC: 5A1D00Z (ICD-10-PCS; principal; 2016-11-18)
DX: I13.11 Hypertensive heart and chronic kidney disease without heart failure, with stage 5 chronic kidney disease, or end stage renal disease (principal); N18.6 End stage renal disease; Z99.2 Dependence on renal dialysis; D64.9 Anemia, unspecified; R51 Headache; K21.9 Gastro-esophageal reflux disease without esophagitis; Z91.19 Patient's noncompliance with other medical treatment and regimen
CPT/HCPCS: 36415; 70030-TC; 70450; 71010; 83735; 84100; 85025; 85730; 90937; 93005; A4663; J0360; J1170; J1200; J2405; J3490; J8597

== ENCOUNTER 2016-11-22 15:25 | Emergency (ER) | payer OTHER ==
[~2016-11-22] VITALS: Ht 167.6 cm; Wt 73.5 kg
[~2016-11-22 15:25] MED LIST changes: -PANT40TA2 PO
[2016-11-22 16:06] LABS: POTASSIUM 3.8 mmol/L (3.5-5.1)
[2016-11-22 16:07] LABS: CREATININE 9.7 mg/dL (0.6-1.3)
--- NOTE | 2016-11-22 16:11 | NUR ---
Patient is resting comfortably in bed with eyes closed. PATIENT IS PAIN FREE AT THIS TIME.
--- NOTE | 2016-11-22 17:46 | NUR ---
Patient discharged to home in stable conditon. Written and verbal after care instructions given to patient. Patient verbalizes understanding of instructions. No vomiting seen since arrival to ER. Patient denies neck pains at this time.
== END 2016-11-22 17:50 | disposition home or self-care (01) ==
LOC: ER 15:25
DX: I13.2 Hypertensive heart and chronic kidney disease with heart failure and with stage 5 chronic kidney disease, or end stage renal disease (principal); I50.9 Heart failure, unspecified; N18.6 End stage renal disease; Z99.2 Dependence on renal dialysis; F17.200 Nicotine dependence, unspecified, uncomplicated; K21.9 Gastro-esophageal reflux disease without esophagitis
CPT/HCPCS: 36415; 80048; 96374; 96375; 99284; A4663; J1170; J2550

== ENCOUNTER 2016-12-02 13:52 | Emergency (ER) | payer OTHER ==
[~2016-12-02] VITALS: Ht 165.1 cm; Wt 64.9 kg
--- NOTE | 2016-12-02 14:30 | NUR ---
DR LOMAS AT THE BEDSIDE FOR EVAL AND EXAM.
[2016-12-02 14:52] LABS: BASOPHILS # (AUTO) 0.1 K/uL (0.0-8.0); BASOPHILS % (AUTO) 1.4 % (0.0-2.0); EOSINOPHILS # (AUTO) 0.1 K/uL (0.0-0.7); EOSINOPHILS % (AUTO) 2.3 % (0.0-7.0); HEMATOCRIT 34.8 % (40-50); HEMOGLOBIN 11.1 G/DL (14.0-18.0); LYMPHOCYTES # (AUTO) 0.9 K/UL (0.8-4.8); LYMPHOCYTES % (AUTO) 15.5 % (20.5-51.5); MEAN CORPUSCULAR HEMOGLOBIN 28.5 UUG (27.0-31.0); MEAN CORPUSCULAR HGB CONC 32 g/dL (32.0-37.0); MEAN CORPUSCULAR VOLUME 89.3 FL (82.0-92.0); MONOCYTES # (AUTO) 0.5 K/UL (0.1-1.30); MONOCYTES % (AUTO) 8.3 % (0.0-11.0); NEUTROPHILS # (AUTO) 4.1 K/UL (1.8-8.9); NEUTROPHILS % (AUTO) 72.5 % (38.5-71.5); PLATELET COUNT (AUTO) 372 K/UL (150-450); RED BLOOD CELL COUNT(AUTO) 3.89 MIL/UL (4.7-6.1); WHITE BLOOD COUNT (AUTO) 5.7 K/UL (4.0-11.2)
[2016-12-02 15:00] LABS: POTASSIUM 3.5 mmol/L (3.5-5.1)
[2016-12-02 15:03] LABS: CREATININE 7.6 mg/dL (0.6-1.3)
[2016-12-02 15:26] LABS: BILIRUBIN,DIRECT 0.2 mg/dL (0.0-0.2); BILIRUBIN,TOTAL 0.9 mg/dL (0.1-1.0)
--- NOTE | 2016-12-02 15:26 | NUR ---
Patient is resting comfortably in bed with eyes closed.
[2016-12-02 15:27] LABS: TOTAL PROTEIN, SERUM 9.3 g/dL (6.4-8.2)
[2016-12-02 16:34] VITALS: BP 184/112
--- NOTE | 2016-12-02 16:35 | NUR ---
Patient discharged to home in stable conditon. Written and verbal after care instructions given. Patient verbalizes understanding of instructions.
--- NOTE | 2016-12-02 16:35 | NUR ---
IV removed. Catheter intact and site benign. Pressure and 4x4 gauze applied to site. No bleeding noted.
== END 2016-12-02 16:35 | disposition home or self-care (01) ==
LOC: ER 13:52
DX: I13.2 Hypertensive heart and chronic kidney disease with heart failure and with stage 5 chronic kidney disease, or end stage renal disease (principal); I50.9 Heart failure, unspecified; N18.6 End stage renal disease; Z99.2 Dependence on renal dialysis; K21.9 Gastro-esophageal reflux disease without esophagitis; F17.200 Nicotine dependence, unspecified, uncomplicated
CPT/HCPCS: 36415; 70030-TC; 71010; 85025; 85730; 93005; A4663; J0360; J1170; J2405

== ENCOUNTER 2016-12-02 18:19 | Emergency (ER) | payer OTHER ==
[~2016-12-02] VITALS: Ht 162.6 cm; Wt 64.9 kg
[2016-12-02 19:49] LABS: POTASSIUM 4.3 mmol/L (3.5-5.1)
[2016-12-02 20:00] LABS: CREATININE 8.6 mg/dL (0.6-1.3)
[2016-12-02 21:32] VITALS: BP 171/102
--- NOTE | 2016-12-02 21:32 | NUR ---
Patient discharged to home in stable conditon. Written and verbal after care instructions given. Patient verbalizes understanding of instructions. PATIENT LEFT WITH STABLE GAIT.
== END 2016-12-02 21:33 | disposition home or self-care (01) ==
LOC: ER 18:19
DX: I13.2 Hypertensive heart and chronic kidney disease with heart failure and with stage 5 chronic kidney disease, or end stage renal disease (principal); N18.6 End stage renal disease; Z99.2 Dependence on renal dialysis; K21.9 Gastro-esophageal reflux disease without esophagitis; F17.200 Nicotine dependence, unspecified, uncomplicated; R51 Headache
CPT/HCPCS: 36415; 70450; A4663; J7040

== ENCOUNTER 2017-01-01 21:08 | Emergency (ER) | payer OTHER ==
[~2017-01-01] VITALS: Ht 170.2 cm; Wt 63.0 kg
[2017-01-01] MEDS ORDERED: LABETALOL HCL 100 MG/20 ML VIAL IV ONE ×4 (21:30→23:30)
--- NOTE | 2017-01-01 21:58 | NUR ---
Pt ambulated to room with steady gait. Pt c/o severe headache and elevated bp since earlier today. No neuro deficits noted. Pt alert and oriented. Pt seen by Dr. Dickinson. IV established and pt medicated for blood pressure. Will monitor for effects of medication. Pt resting in position of comfort for self.
[2017-01-01] MEDS ORDERED: LABETALOL HCL 100 MG/20 ML VIAL ONE ×2 (22:11→23:20)
[2017-01-01] MEDS ORDERED: ONDANSETRON IV *ER 4 MG/2 ML VIAL IV ONE (22:30)
[2017-01-01] MEDS ORDERED: HYDROMORPHONE 1 MG/1 ML DISP.SYRIN IV ONE (22:30)
--- NOTE | 2017-01-01 22:30 | NUR ---
Pt conts to c/o severe headache. MD notified, awaiting further orders.
--- NOTE | 2017-01-01 22:39 | NUR ---
Pt medicated for discomfort, will monitor for effects of medication. Pt resting in position of comfort for self.
[2017-01-01] MEDS ORDERED: ONDANSETRON 4 MG/2 ML VIAL ONE (22:49)
[2017-01-01] MEDS ORDERED: HYDROMORPHONE 2 MG/1 ML DISP.SYRIN ONE (22:49)
--- NOTE | 2017-01-01 23:10 | NUR ---
Pt sts pain improved with medication and is tolerable. Pt's blood pressure remains elevated, will cont to monitor for effects of medication.
--- NOTE | 2017-01-01 23:35 | NUR ---
Pt medicated for cont elevated blood pressure. Will monitor for effects of medication. Pt resting in position of comfort for self. No complaints at this time.
--- NOTE | 2017-01-02 00:10 | NUR ---
No significant change in pts blood pressure. Pt resting in a position of comfort for self with eyes closed, resp even and unlabored. No obvious signs of distress.
[2017-01-02] MEDS ORDERED: LABETALOL HCL 100 MG/20 ML VIAL IV ONE (00:15)
[2017-01-02] MEDS ORDERED: hydrALAZINE HCL 20 MG/1 ML VIAL IV ONE (00:30)
[2017-01-02] MEDS ORDERED: LABETALOL HCL 100 MG/20 ML VIAL ONE (00:36)
--- NOTE | 2017-01-02 00:46 | NUR ---
Pt medicated for cont elevated blood pressure, will monitor for effects of medication. Pt has no complaints at this time.
[2017-01-02] MEDS ORDERED: hydrALAZINE HCL 20 MG/1 ML VIAL ONE (00:59)
--- NOTE | 2017-01-02 01:06 | NUR ---
Slight improvement noted in pt's blood pressure. Will cont to monitor for effects of previous medication. Pt no complaints at this time.
[2017-01-02] MEDS ORDERED: ONDANSETRON ODT 4 MG TAB.RAPDIS SL ONE (01:15)
--- NOTE | 2017-01-02 01:20 | NUR ---
Blood pressure improving. Pt stable for discharge per Dr. Dickinson. IV dc'd, catheter intact. Drsg applied. Pt given ACI. Pt verbalized understanding of dc instructions. Pt ambulated out of ER with steady gait.
[2017-01-02 01:22] VITALS: BP 153/90
[2017-01-02] MEDS ORDERED: ONDANSETRON ODT 4 MG TAB.RAPDIS ONE (01:30)
== END 2017-01-02 01:22 | disposition home or self-care (01) ==
LOC: ER 21:09
DX: I13.2 Hypertensive heart and chronic kidney disease with heart failure and with stage 5 chronic kidney disease, or end stage renal disease (principal); I50.9 Heart failure, unspecified; Z99.2 Dependence on renal dialysis; K21.9 Gastro-esophageal reflux disease without esophagitis; F17.200 Nicotine dependence, unspecified, uncomplicated; R51 Headache
CPT/HCPCS: 96374; 96375; 96376; 99284; A4663; J0360; J1170; J2405; J3490 ×3; Q0162

== ENCOUNTER 2017-01-19 14:10 | Inpatient (IN) | payer OTHER ==
[~2017-01-19] VITALS: Ht 170.2 cm; Wt 61.7 kg
[2017-01-19 14:57] LABS: BASOPHILS # (AUTO) 0.1 K/uL (0.0-8.0); BASOPHILS % (AUTO) 2.1 % (0.0-2.0); EOSINOPHILS # (AUTO) 0.1 K/uL (0.0-0.7); EOSINOPHILS % (AUTO) 2.5 % (0.0-7.0); HEMATOCRIT 31.6 % (40-50); HEMOGLOBIN 10.2 G/DL (14.0-18.0); LYMPHOCYTES # (AUTO) 1.2 K/UL (0.8-4.8); LYMPHOCYTES % (AUTO) 23.3 % (20.5-51.5); MEAN CORPUSCULAR HEMOGLOBIN 27.7 UUG (27.0-31.0); MEAN CORPUSCULAR HGB CONC 32 g/dL (32.0-37.0); MEAN CORPUSCULAR VOLUME 86.2 FL (82.0-92.0); MONOCYTES # (AUTO) 0.3 K/UL (0.1-1.30); MONOCYTES % (AUTO) 6.2 % (0.0-11.0); NEUTROPHILS # (AUTO) 3.5 K/UL (1.8-8.9); NEUTROPHILS % (AUTO) 65.9 % (38.5-71.5); PLATELET COUNT (AUTO) 257 K/UL (150-450); RED BLOOD CELL COUNT(AUTO) 3.67 MIL/UL (4.7-6.1); WHITE BLOOD COUNT (AUTO) 5.2 K/UL (4.0-11.2)
[2017-01-19] MEDS ORDERED: ONDANSETRON 4 MG/2 ML VIAL IV ONE (15:30)
[2017-01-19] MEDS ORDERED: HYDROCODONE/APAP 10-325 MG TABLET PO ONE (15:30)
[2017-01-19] MEDS ORDERED: LABETALOL HCL 100 MG/20 ML VIAL IV ONE ×2 (15:30→16:15)
[2017-01-19] MEDS ORDERED: CLONIDINE HCL 0.1 MG TABLET PO ONE (15:30)
[2017-01-19] MEDS ORDERED: LABETALOL HCL 100 MG/20 ML VIAL ONE (15:41)
[2017-01-19] MEDS ORDERED: ONDANSETRON 4 MG/2 ML VIAL ONE (15:41)
[2017-01-19] MEDS ORDERED: HYDROCODONE/APAP 10-325 MG TABLET ONE (15:41)
[2017-01-19] MEDS ORDERED: CLONIDINE HCL 0.1 MG TABLET ONE (15:41)
[2017-01-19 15:47] LABS: CREATININE 20.1 mg/dL (0.6-1.3); POTASSIUM 7.3 mmol/L (3.5-5.1)
[2017-01-19] MEDS ORDERED: DEXTROSE 50% 50 ML DISP.SYRIN IV ONE (16:00)
[2017-01-19] MEDS ORDERED: INSULIN REGULAR, HUMAN 1,000 UNITS/10 ML VIAL IV ONE (16:00)
[2017-01-19] MEDS ORDERED: CALCIUM CHLORIDE 1 GM/10 ML DISP.SYRIN IVP ONE ×2 (16:00→16:04)
[2017-01-19] MEDS ORDERED: SODIUM BICARBONATE 8.4% 50 MEQ/50 ML DISP.SYRIN IV ONE ×2 (16:00→16:21)
[2017-01-19] MEDS ORDERED: DEXTROSE 50% 50 ML DISP.SYRIN ONE (16:21)
[2017-01-19] MEDS ORDERED: INSULIN REGULAR, HUMAN 300 UNIT/3 ML VIAL ONE (16:22)
--- NOTE | 2017-01-19 16:30 | NUR ---
PATIENT WAS SEEN BY MD FOR HTN. PLACED ON A MONITOR IMMEDIATELY. DENIES CHEST PAIN OR SOB. STATES HE HAS CHRONIC PAIN. IV PLACED ON RIGHT ARM. ALL MEDS GIVEN SLOWLY PER POLICY ORDERED AND DOCUMENTED IN EMAR. PATIENT IS AWAKE. ALERT, ORIENTED X4 IN NO DISTRESS. STATES HE FEELS NAUSEATED AT TIMES. HE IS AWARE OF PENDING ADMISSION TO HOSPITAL. DR MCCABE AWARE OF BP NUMBERS.
--- NOTE | 2017-01-19 16:50 | NUR ---
REPORT GIVEN TO MARCY ELIZALDE.
--- NOTE | 2017-01-19 16:55 | NUR ---
DIALYSIS NURSE CALLED AND SAID SHE WILL BE ARRIVING TO START DILAYSIS ON THIS PATIENT VERY SOON. I NOTIFIED MARCY ELIZALDE OF THIS ON TELE FLOOR
--- NOTE | 2017-01-19 19:00 | NUR ---
Pt needs to be fully admitted by cook night. Got admitting orders for pt.
--- NOTE | 2017-01-19 19:00 | NUR ---
Pt has HTN 212/127, HR 65,pt receiving dialysis and dialysis nurse at bedside. Pt is diaphoretic, AOx3, wants to be DNR. Doctor notified of condition. Dr. Carty notified of increase BP. Bp lowered to 170/99, HR 72. Orders received by Doctor.
--- NOTE | 2017-01-19 19:35 | NUR ---
PT RECEIVED IN BED, AWAKE. A/OX4. ABLE TO MAKE NEEDS KNOWN. CURRENTLY ON DIALYSIS. BP ELEVATED. IN STABLE CONDITION. NO C/O PAIN AT THIS TIME. IV INTACT AND PATENT, HEP-LOCKED. ON RA TOLERATING WELL. SAFETY MEASURES IMPLEMENTED. CALL LIGHT WITHIN REACH.
[2017-01-19 20:00] VITALS: BP 169/103
--- NOTE | 2017-01-19 20:30 | NUR ---
DIALYSIS FINISHED. PT IN STABLE CONDITION. 3L OUT.
[2017-01-19] MEDS: LABETALOL HCL 200 MG TABLET PO SCH (21:30)
[2017-01-19] MEDS: MINOXIDIL 2.5 MG TABLET PO SCH (22:08)
[2017-01-19] MEDS: HYDROMORPHONE 1 MG/1 ML DISP.SYRIN IM PRN (22:09)
[2017-01-19] MEDS ORDERED: hydrALAZINE HCL 25 MG TABLET PO PRN (22:15)
[2017-01-19] MEDS ORDERED: MINOXIDIL 2.5 MG TABLET ONE (22:16)
[2017-01-20] VITALS: BP 150/129
[2017-01-20] MEDS ORDERED: hydrALAZINE HCL 25 MG TABLET PO SCH
[2017-01-20 04:00] VITALS: BP 198/85
[2017-01-20] MEDS: HYDROMORPHONE 1 MG/1 ML DISP.SYRIN IM PRN (04:15)
[2017-01-20] MEDS ORDERED: HYDROMORPHONE 2 MG/1 ML DISP.SYRIN ONE (04:23)
[2017-01-20] MEDS ORDERED: hydrALAZINE HCL 25 MG TABLET ONE (05:31)
--- NOTE | 2017-01-20 06:40 | NUR ---
END OF SHIFT NOTES. PT SLEPT INTERMITTENTLY THROUGHOUT SHIFT. IN STABLE CONDITION. 0400 BP ELEVATED AT 198/85, BP MEDICATION HYDRALAZINE ADMINISTERED. PT C/O OF GENERALIZED PAIN MANAGED. ADMINISTERED PAIN MEDICATION ORDERED. SINUS RHYTHM ON THE TELE MONITOR THROUGHOUT SHIFT. ALL NEEDS ATTENDED. SAFETY MAINTAINED. CALL LIGHT WITHIN REACH.
[2017-01-20 06:59] LABS: MAGNESIUM 2.4 mg/dL (1.8-2.4); PHOSPHOROUS 7.9 mg/dL (2.5-4.9)
[2017-01-20 07:41] LABS: BASOPHILS % (AUTO) 0.3 % (0.0-2.0); EOSINOPHILS # (AUTO) 0.1 K/uL (0.0-0.7); HEMOGLOBIN 11.2 g/dL (12.5-16.3); LYMPHOCYTES # (AUTO) 1.3 K/uL (20.0-40.0); LYMPHOCYTES % (AUTO) 31.8 % (20.5-51.5); MEAN CORPUSCULAR HEMOGLOBIN 28.4 uug (23.8-33.4); MEAN CORPUSCULAR HGB CONC 33 g/dL (32.5-36.3); MONOCYTES # (AUTO) 0.4 K/uL (2.0-10.0); MONOCYTES % (AUTO) 8.8 % (0.0-11.0); NEUTROPHILS # (AUTO) 2.4 K/uL (1.8-8.9); NEUTROPHILS % (AUTO) 56.1 % (38.5-71.5); PLATELET COUNT (AUTO) 279 K/uL (152-348); RED BLOOD CELL COUNT(AUTO) 3.95 MIL/uL (4.06-5.63); WHITE BLOOD COUNT (AUTO) 4.2 K/uL (3.6-10.2)
--- NOTE | 2017-01-20 07:58 | NUR ---
PT. SLEEPING AND WANTS TO WAIT WITH AM MEDS. NO ACUTE DISTRESS NOTED.
[2017-01-20 08:00] VITALS: BP 178/114
[2017-01-20] MEDS: ONDANSETRON 4 MG/2 ML VIAL IV PRN ×2 (09:00→17:16)
[2017-01-20] MEDS: HYDROMORPHONE 2 MG/1 ML DISP.SYRIN IV PRN ×3 (09:02→23:28)
[2017-01-20 10:03] LABS: POTASSIUM 5.1 mmol/L (3.5-5.1)
[2017-01-20 10:04] LABS: CREATININE 15.3 mg/dL (0.6-1.3)
[2017-01-20] MEDS: METOCLOPRAMIDE HCL 5 MG TABLET PO SCH ×3 (10:19→18:47)
[2017-01-20] MEDS: AMLODIPINE 5 MG TABLET PO SCH ×2 (10:19→18:50)
[2017-01-20] MEDS: MINOXIDIL 2.5 MG TABLET PO SCH ×2 (10:19→20:38)
[2017-01-20] MEDS: LABETALOL HCL 200 MG TABLET PO SCH ×2 (10:20→20:38)
[2017-01-20] MEDS: BENAZEPRIL HCL 20 MG TABLET PO SCH (10:20)
[2017-01-20 11:05] VITALS: BP 168/100
[2017-01-20] MEDS: CALCIUM ACETATE 667 MG CAPSULE PO SCH ×2 (13:09→18:47)
[2017-01-20 15:15] VITALS: BP 123/69
--- NOTE | 2017-01-20 18:57 | NUR ---
Pt. took given antiemetics and pain meds per mar with good effect. Medications given late per pt. request. Dialysis treatment in afternoon with good tolerance. SBP improved in afternoon. Pt. had emesis in am but tolerated food in afternoon. Pt. watching TV and sleeping intermittently and mood improved in afternoon becoming more talkative. No acute distress.
--- NOTE | 2017-01-20 19:30 | NUR ---
PT RECEIVED IN BED, AWAKE. A/OX4. ABLE TO MAKE NEEDS KNOWN. V/S STABLE. IN NO ACUTE DISTRESS. C/O GENERALIZED PAIN 4/10 AT THIS TIME. ON RA, TOLERATING WELL. PT C/O GENERALIZED ITCHING, NOTIFIED. PT REQUESTS NEPRO SUPPLEMENTATION, ORDERED TID. WILL ADMIN ORDERED. SINUS RHYTHM ON THE TELE MONITOR. SAFETY MEASURES IMPLEMENTED. CALL LIGHT WITHIN REACH.
[2017-01-20 20:00] VITALS: BP 126/75
[2017-01-20] MEDS ORDERED: diphenhydrAMINE 25 MG CAP PO PRN (20:30)
--- NOTE | 2017-01-20 22:30 | NUR ---
PT IN STABLE CONDITION. HAND OF REPORT GIVEN TO VINAY.
[2017-01-21] VITALS: BP 130/77
[2017-01-21 04:00] VITALS: BP 115/65
--- NOTE | 2017-01-21 05:28 | NUR ---
slept at short intervals.in no acute distress.resting comfortably.
[2017-01-21] MEDS: HYDROMORPHONE 2 MG/1 ML DISP.SYRIN IV PRN (06:24)
[2017-01-21] MEDS ORDERED: PANT40TA2 PO (07:51)
[2017-01-21] MEDS ORDERED: TIZA4CAP PO (07:51)
[2017-01-21] MEDS: CALCIUM ACETATE 667 MG CAPSULE PO SCH ×2 (08:44→11:19)
[2017-01-21] MEDS: METOCLOPRAMIDE HCL 5 MG TABLET PO SCH ×2 (08:47→11:18)
[2017-01-21] MEDS: BENAZEPRIL HCL 20 MG TABLET PO SCH (08:48)
[2017-01-21] MEDS: AMLODIPINE 5 MG TABLET PO SCH (08:48)
[2017-01-21] MEDS: MINOXIDIL 2.5 MG TABLET PO SCH (08:48)
[2017-01-21] MEDS: LABETALOL HCL 200 MG TABLET PO SCH (08:48)
[2017-01-21] MEDS ORDERED: FOLIC ACID 1 MG TABLET PO SCH (09:00)
[2017-01-21] MEDS ORDERED: FOLIC ACID/VITAMIN B COMP W-C TABLET PO SCH (09:00)
--- NOTE | 2017-01-21 10:12 | NUR ---
PATIENT REFUSED DIALYSIS, EXPLAINED RISKS AND BENEFITS, PATIENT CONTINUES TO REFUSE.
[2017-01-21 11:12] VITALS: BP 100/58
[2017-01-21 11:13] VITALS: BP_SYST 100; BP_SYST 108; BP_DIAS 58; BP_DIAS 72
--- NOTE | 2017-01-21 11:15 | NUR ---
Discontinued patients peripheral IV line on the right forearm, tolerated procedure well, no complaints of pain at this time.
--- NOTE | 2017-01-21 12:29 | NUR ---
Discharged patient, in a stable condition, not in any form of pain, no signs and symptoms of respiratory distress at this time, blood pressure is within normal limits. Patient was provided and educated with detention information, discharged instructions, such as medications and MD follow-up were provided, patient verbalized understanding. Reinforced and educated patient the importance, and benefits of compliance with dialysis and patient verbalized understanding. Patient's preferred pharmacy was called and then verified receipt of prescriptions from primary doctor. Offered Pneumonia and Influenza vaccine, patient strongly refused, patient was educated about the risks and benefits of the vaccines and still refused.
== END 2017-01-21 12:30 | disposition home or self-care (01) | DRG 194 ==
LOC: ER 14:10 → TELE 16:50
PROVIDERS: ADMIT Internal Medicine; ATTEND Internal Medicine
PROC: 5A1D70Z Performance of Urinary Filtration, Intermittent, Less than 6 Hours Per Day (ICD-10-PCS; principal; 2017-01-19)
DX: I13.2 Hypertensive heart and chronic kidney disease with heart failure and with stage 5 chronic kidney disease, or end stage renal disease (principal); N18.6 End stage renal disease; I50.9 Heart failure, unspecified; D64.9 Anemia, unspecified; E87.5 Hyperkalemia; F12.90 Cannabis use, unspecified, uncomplicated; F17.200 Nicotine dependence, unspecified, uncomplicated; K21.9 Gastro-esophageal reflux disease without esophagitis; K29.70 Gastritis, unspecified, without bleeding; Z99.2 Dependence on renal dialysis; Z87.11 Personal history of peptic ulcer disease
CPT/HCPCS: 36415; 70030-TC; 71010; 83735; 84100; 85025; 85730; 93005; A4663; J1170; J1815; J2405; J3490; J8597; Q0163

== ENCOUNTER 2017-01-29 20:27 | Inpatient (IN) | payer OTHER ==
[~2017-01-29] VITALS: Ht 170.2 cm; Wt 62.6 kg
[~2017-01-29 20:27] MED LIST changes: +PANT40TA2 PO; +TIZA4CAP PO
[2017-01-29] MEDS ORDERED: ONDANSETRON 4 MG/2 ML VIAL IV ONE (21:15)
[2017-01-29 21:36] LABS: BASOPHILS # (AUTO) 0.1 K/uL (0.0-8.0); BASOPHILS % (AUTO) 2.8 % (0.0-2.0); EOSINOPHILS # (AUTO) 0.1 K/uL (0.0-0.7); EOSINOPHILS % (AUTO) 2.5 % (0.0-7.0); HEMATOCRIT 34.1 % (40-50); HEMOGLOBIN 10.9 G/DL (14.0-18.0); LYMPHOCYTES # (AUTO) 0.7 K/UL (0.8-4.8); LYMPHOCYTES % (AUTO) 18.1 % (20.5-51.5); MEAN CORPUSCULAR HEMOGLOBIN 27.8 UUG (27.0-31.0); MEAN CORPUSCULAR HGB CONC 32 g/dL (32.0-37.0); MEAN CORPUSCULAR VOLUME 86.6 FL (82.0-92.0); MONOCYTES # (AUTO) 0.5 K/UL (0.1-1.30); MONOCYTES % (AUTO) 12.9 % (0.0-11.0); NEUTROPHILS # (AUTO) 2.6 K/UL (1.8-8.9); NEUTROPHILS % (AUTO) 63.7 % (38.5-71.5); PLATELET COUNT (AUTO) 253 K/UL (150-450); RED BLOOD CELL COUNT(AUTO) 3.93 MIL/UL (4.7-6.1)
[2017-01-29 21:52] LABS: BILIRUBIN,DIRECT 0.2 mg/dL (0.0-0.2); BILIRUBIN,TOTAL 0.8 mg/dL (0.2-1.0); CREATININE 6.7 mg/dL (0.6-1.3); POTASSIUM 4.5 mmol/L (3.5-5.1); TOTAL PROTEIN, SERUM 9.2 g/dL (6.4-8.2)
[2017-01-29] MEDS ORDERED: ONDANSETRON 4 MG/2 ML VIAL ONE (22:00)
[2017-01-29] MEDS ORDERED: HYDROMORPHONE 1 MG/1 ML DISP.SYRIN IM ONE (22:15)
[2017-01-29] MEDS ORDERED: LABETALOL HCL 100 MG/20 ML VIAL IV ONE (22:15)
[2017-01-29] MEDS ORDERED: HYDROMORPHONE 2 MG/1 ML DISP.SYRIN ONE (22:31)
[2017-01-29] MEDS ORDERED: LABETALOL HCL 100 MG/20 ML VIAL ONE (22:31)
--- NOTE | 2017-01-29 22:56 | NUR ---
Patient taken to CT via [facility].
[2017-01-29] MEDS ORDERED: hydrALAZINE HCL 20 MG/1 ML VIAL IV ONE (23:45)
[2017-01-29] MEDS ORDERED: hydrALAZINE HCL 20 MG/1 ML VIAL ONE (23:54)
[2017-01-30] VITALS (7 sets, daily range): BP systolic 98–214; BP diastolic 58–127
--- NOTE | 2017-01-30 00:04 | NUR ---
Patient in bed, no acute distress noted. Patient states he is no longer nauseous or dizzy.
[2017-01-30] MEDS ORDERED: CLONIDINE HCL 0.1 MG TABLET PO ONE (01:00)
[2017-01-30] MEDS ORDERED: ONDANSETRON 4 MG/2 ML VIAL IV ONE (01:15)
[2017-01-30] MEDS ORDERED: hydrALAZINE HCL 20 MG/1 ML VIAL IV ONE (01:15)
[2017-01-30] MEDS ORDERED: ONDANSETRON 4 MG/2 ML VIAL ONE ×2 (01:42→03:43)
[2017-01-30] MEDS ORDERED: CLONIDINE HCL 0.1 MG TABLET ONE (01:42)
[2017-01-30] MEDS ORDERED: hydrALAZINE HCL 20 MG/1 ML VIAL ONE (01:42)
--- NOTE | 2017-01-30 02:18 | NUR ---
Call placed to [facility] Nephrology, Dr. Carty will be paged.
--- NOTE | 2017-01-30 02:27 | NUR ---
Patient admitted by Dr. Carty, orders received. Unable to obtain room assignment at this time.
--- NOTE | 2017-01-30 02:38 | NUR ---
Report given to Taylor ELIZALDE
--- NOTE | 2017-01-30 02:49 | NUR ---
Pt. admitted to Telemetry , under care of Dr. Carty. Dx: Accelerated Hypertension. Belongs List completed
--- NOTE | 2017-01-30 02:50 | NUR ---
PT RECEIVED FROM ED, VIA WHEELCHAIR. ORIENTED TO ROOM. A/OX4. ABLE TO MAKE NEEDS KNOWN. BP ELEVATED AT 214/127. MD AWARE. IN NO ACUTE DISTRESS. PT C/O HEADACHE PAIN 10/09. IV INTACT AND PATENT. ON RA, TOLERATING WELL. SAFETY MEASURES IMPLEMENTED. CALL LIGHT WITHIN REACH.
[2017-01-30] MEDS ORDERED: HYDROMORPHONE 1 MG/1 ML DISP.SYRIN IV PRN (03:30)
[2017-01-30] MEDS ORDERED: HYDROMORPHONE 2 MG/1 ML DISP.SYRIN ONE (03:39)
[2017-01-30] MEDS: ONDANSETRON 4 MG/2 ML VIAL IV PRN ×3 (03:41→16:33)
[2017-01-30] MEDS: MINOXIDIL 2.5 MG TABLET PO SCH ×3 (03:41→20:50)
[2017-01-30] MEDS ORDERED: MINOXIDIL 2.5 MG TABLET ONE (03:43)
--- NOTE | 2017-01-30 05:50 | NUR ---
END OF SHIFT NOTES. PT SLEPT INTERMITTENTLY THROUGHOUT SHIFT. IN STABLE CONDITION. BP CONT TO BE ELEVATED. PAIN MANAGED. IV INTACT AND PATENT. ON RA, TOLERATING WELL. SINUS RHYTHM 85 ON THE TELE MONITOR. PT CONT TO HAVE 2 MORE EPISODES OF VOMIT DURING SHIFT. ZOFRAN ADMINISTERED ORDERED. ALL NEEDS ATTENDED. SAFETY MAINTAINED. CALL LIGHT WITHIN REACH.
[2017-01-30] MEDS: PANTOPRAZOLE SODIUM 40 MG TABLET.DR PO SCH (06:25)
--- NOTE | 2017-01-30 06:25 | NUR ---
NON-ADMIN PROTONIX, NEW ADMISSION.
[2017-01-30] MEDS: METOCLOPRAMIDE HCL 5 MG TABLET PO SCH ×3 (07:30→17:10)
[2017-01-30] MEDS: HYDROMORPHONE 2 MG/1 ML DISP.SYRIN IV PRN ×3 (10:25→22:33)
[2017-01-30] MEDS ORDERED: CELLULOSE,OXIDIZED 2x3 MC ONE (11:00)
[2017-01-30] MEDS: TIZANIDINE HCL 4 MG TABLET PO SCH ×2 (12:37→20:48)
[2017-01-30] MEDS: LABETALOL HCL 200 MG TABLET PO SCH ×2 (12:38→20:50)
[2017-01-30] MEDS: FOLIC ACID/VITAMIN B COMP W-C TABLET PO SCH (12:38)
[2017-01-30] MEDS: BENAZEPRIL HCL 20 MG TABLET PO SCH (12:38)
--- NOTE | 2017-01-30 17:00 | NUR ---
Nurse Note: patient was medicated for pain with Dilaudid 1 mg IV push, and nausea with Zofran 4 mg IV push, pain was relieved and nausea is lessened, had emesis earlier today.
[2017-01-30] MEDS: CALCIUM ACETATE 667 MG CAPSULE PO SCH (18:41)
--- NOTE | 2017-01-30 19:40 | NUR ---
PT RECEIVED IN BED, AWAKE. A/OX4. ABLE TO MAKE NEEDS KNOWN. V/S STABLE. IN NO ACUTE DISTRESS. NO C/O PAIN AT THIS TIME. IV INTACT AND PATENT. ON RA, TOLERATING WELL. AFEBRILE. SINUS TACHY AT 90-100 ON THE TELE MONITOR. DOES NOT C/O OF N/V AT THIS TIME. SAFETY MEASURES IMPLEMENTED. CALL LIGHT WITHIN REACH.
[2017-01-30] MEDS: AMLODIPINE 5 MG TABLET PO SCH (20:50)
[2017-01-30] MEDS ORDERED: AMLODIPINE 10 MG TABLET PO SCH (21:00)
[2017-01-30] MEDS: ZOLPIDEM 5 MG TABLET PO PRN (21:53)
[2017-01-30] MEDS ORDERED: ZOLPIDEM 5 MG TABLET ONE (22:07)
[2017-01-31] VITALS: BP 98/63
[2017-01-31 04:00] VITALS: BP 130/74
[2017-01-31] MEDS: HYDROMORPHONE 2 MG/1 ML DISP.SYRIN IV PRN (04:34)
--- NOTE | 2017-01-31 06:30 | NUR ---
END OF SHIFT NOTES. PT SLEPT INTERMITTENTLY THROUGHOUT SHIFT. IN STABLE CONDITION. BP WNL. IV INTACT AND PATENT. SINUS TACHY ON THE TELE MONITOR. PAIN MANAGED THROUGHOUT SHIFT. ALL NEEDS ATTENDED. SAFETY MAINTAINED. CALL LIGHT WITHIN REACH.
[2017-01-31] MEDS: PANTOPRAZOLE SODIUM 40 MG TABLET.DR PO SCH (06:41)
[2017-01-31] MEDS: METOCLOPRAMIDE HCL 5 MG TABLET PO SCH ×3 (06:41→16:47)
[2017-01-31 07:29] LABS: BILIRUBIN,TOTAL 1.1 mg/dL (0.2-1.0); MAGNESIUM 2.4 mg/dL (1.8-2.4); PHOSPHOROUS 7.6 mg/dL (2.5-4.9); POTASSIUM 4.5 mmol/L (3.5-5.1); TOTAL PROTEIN, SERUM 9.9 g/dL (6.4-8.2)
[2017-01-31 07:37] LABS: CREATININE 9.3 mg/dL (0.6-1.3)
[2017-01-31 07:38] LABS: BASOPHILS % (AUTO) 0.2 % (0.0-2.0); EOSINOPHILS # (AUTO) 0.1 K/uL (0.0-0.7); HEMATOCRIT 38.1 % (36.7-47.1); HEMOGLOBIN 12.7 g/dL (12.5-16.3); LYMPHOCYTES % (AUTO) 30.9 % (20.5-51.5); MEAN CORPUSCULAR HEMOGLOBIN 28.7 uug (23.8-33.4); MEAN CORPUSCULAR HGB CONC 33 g/dL (32.5-36.3); MEAN CORPUSCULAR VOLUME 86.1 fL (73.0-96.2); MONOCYTES # (AUTO) 0.7 K/uL (2.0-10.0); MONOCYTES % (AUTO) 21.2 % (0.0-11.0); NEUTROPHILS # (AUTO) 1.5 K/uL (1.8-8.9); NEUTROPHILS % (AUTO) 45.7 % (38.5-71.5); PLATELET COUNT (AUTO) 224 K/uL (152-348); RED BLOOD CELL COUNT(AUTO) 4.43 MIL/uL (4.06-5.63); WHITE BLOOD COUNT (AUTO) 3.3 K/uL (3.6-10.2)
[2017-01-31] MEDS: CALCIUM ACETATE 667 MG CAPSULE PO SCH ×3 (08:00→17:00)
--- NOTE | 2017-01-31 08:30 | NUR ---
RESTING REFUSED TO EAT BREAKFAST STATE PAIN MED HELP TO RELIEF PAIN WELL HL INPLACE RFA AND AV SHUNT ON LFA ON FALL PRECAUTION GEN WEAK CALL LIGHT IN REACH
[2017-01-31] MEDS: TIZANIDINE HCL 4 MG TABLET PO SCH ×2 (09:00→21:56)
[2017-01-31] MEDS: FOLIC ACID/VITAMIN B COMP W-C TABLET PO SCH (09:00)
[2017-01-31] MEDS: MINOXIDIL 2.5 MG TABLET PO SCH ×2 (09:00→20:24)
[2017-01-31] MEDS: LABETALOL HCL 200 MG TABLET PO SCH ×2 (09:00→21:56)
[2017-01-31] MEDS: BENAZEPRIL HCL 20 MG TABLET PO SCH (09:00)
[2017-01-31] MEDS: AMLODIPINE 5 MG TABLET PO SCH ×2 (09:00→21:00)
[2017-01-31 09:32] LABS: BAND % (MANUAL) 2 % (0-10); EOSINOPHILS % (MANUAL) 2 % (0-8); LYMPHOCYTES % (MANUAL) 30 % (20-40); MONOCYTES % (MANUAL) 18 % (2-10); NEUTROPHILS % (MANUAL) 46 % (42-75)
[2017-01-31 09:37] LABS: REACTIVE LYMPHOCYTES 2 % (0-0)
[2017-01-31] MEDS: ONDANSETRON 4 MG/2 ML VIAL IV PRN ×2 (10:30→16:53)
[2017-01-31] MEDS: HYDROMORPHONE 4 MG/1 ML DISP.SYRIN IV PRN ×2 (10:33→16:54)
--- NOTE | 2017-01-31 11:30 | NUR ---
MED PRN FOR PAIN AND N/V GIVEN ORDER
[2017-01-31 11:32] VITALS: BP 124/84
--- NOTE | 2017-01-31 12:30 | NUR ---
EAT LUNCH 60% DR ALVARES SEE PATIENT AND PT CONDITION INFORM NEW ORDER IN CHART
--- NOTE | 2017-01-31 13:00 | NUR ---
PAIN AND NAUSEA SUBSIDE RESTING QUIET NO SOB AT THIS TIME VS STABLE
[2017-01-31 15:26] VITALS: BP 118/62
--- NOTE | 2017-01-31 17:45 | NUR ---
REFUSED TO EAT C/O STILL HAVING NEASEA RESTING AND CLOSED OBSERVATION MED PRN FOR PAIN AND N/V GIVEN EARLIER
--- NOTE | 2017-01-31 18:00 | NUR ---
NAUSEA SUBSIDE STATE WILL EAT DINNER LATER RESTING WELL AT THIS TIME NO SOB OR ACUTE DISTRESS SAFETY MEASURE PROVIDED CALL LIGHT IN REACH
[2017-01-31 20:00] VITALS: BP 127/78
[2017-02-01] VITALS: BP 127/67
[2017-02-01] MEDS: HYDROMORPHONE 4 MG/1 ML DISP.SYRIN IV PRN ×4 (00:36→23:23)
[2017-02-01] MEDS: ONDANSETRON 4 MG/2 ML VIAL IV PRN ×4 (00:36→23:22)
[2017-02-01 04:00] VITALS: BP 144/77
[2017-02-01 05:07] VITALS: BP 144/77
[2017-02-01] MEDS: PANTOPRAZOLE SODIUM 40 MG TABLET.DR PO SCH (06:17)
--- NOTE | 2017-02-01 06:36 | NUR ---
END OF SHIFT SUMMERY: pt is A&O X 4. On room air, sating well. VSS. connected to the radiation monitor,NSR. complained of sever pain on the left shoulder , hydromorphone was given with relief. POC: Possible HD today. No acute respiratory/cardiac distress noted. will continue to monitor and endorse patient to next shift nurse.
--- NOTE | 2017-02-01 08:30 | NUR ---
AWAKE ALERT COOPERATE WELL NO SOB STATE PAIN MED HELP TO RELIEF ,STILL WEAK ON FALL PRECAUTION CALL FOSTER IN REACH
[2017-02-01] MEDS: METOCLOPRAMIDE HCL 5 MG TABLET PO SCH ×3 (09:08→16:52)
[2017-02-01] MEDS: CALCIUM ACETATE 667 MG CAPSULE PO SCH ×3 (09:08→16:52)
[2017-02-01] MEDS: FOLIC ACID/VITAMIN B COMP W-C TABLET PO SCH (09:15)
[2017-02-01] MEDS: AMLODIPINE 5 MG TABLET PO SCH ×2 (09:15→22:35)
[2017-02-01] MEDS: LABETALOL HCL 200 MG TABLET PO SCH ×2 (09:15→22:35)
[2017-02-01] MEDS: TIZANIDINE HCL 4 MG TABLET PO SCH ×2 (09:15→22:35)
[2017-02-01] MEDS: MINOXIDIL 2.5 MG TABLET PO SCH ×2 (09:15→22:35)
[2017-02-01] MEDS: BENAZEPRIL HCL 20 MG TABLET PO SCH (09:16)
--- NOTE | 2017-02-01 10:30 | NUR ---
DR ALVARES SEE HIM THIS AM AND PT CONDITION INFORM NEW ORDER IN CHART CONSULT GASTROLOGY MD TO SEE HIM
[2017-02-01 11:14] VITALS: BP 124/82
[2017-02-01 15:48] VITALS: BP 119/80
--- NOTE | 2017-02-01 18:00 | NUR ---
STABLE CONDITION HD SCHEDULE THIS PM PATIENT WAS INFORM AND AWARE OF IT PAIN AND NAUSEA UNDER CONTROL SAFETY MEASURE PROVIDED CALL LIGHT IN REACH
--- NOTE | 2017-02-01 21:57 | NUR ---
PATIENT COMPLETED DIALYSIS AT THIS TIME. DIALYSIS NURSE (REGAN) FROM [facility] SAYS OUTPUT FROM DIALYSIS = 0 ML.
[2017-02-01] MEDS ORDERED: HYDROMORPHONE 4 MG/1 ML DISP.SYRIN ONE (23:20)
[2017-02-02] MEDS: HYDROMORPHONE 4 MG/1 ML DISP.SYRIN IV PRN ×3 (05:25→18:44)
[2017-02-02] MEDS: ONDANSETRON 4 MG/2 ML VIAL IV PRN ×3 (05:30→18:59)
[2017-02-02] MEDS ORDERED: HYDROMORPHONE 2 MG/1 ML DISP.SYRIN ONE (05:38)
[2017-02-02] MEDS: METOCLOPRAMIDE HCL 5 MG TABLET PO SCH ×3 (06:10→16:54)
[2017-02-02] MEDS: PANTOPRAZOLE SODIUM 40 MG TABLET.DR PO SCH (06:10)
[2017-02-02 06:43] VITALS: BP 121/70
[2017-02-02] MEDS: CALCIUM ACETATE 667 MG CAPSULE PO SCH ×3 (08:42→16:54)
[2017-02-02] MEDS: MINOXIDIL 2.5 MG TABLET PO SCH ×2 (09:00→20:42)
[2017-02-02] MEDS: BENAZEPRIL HCL 20 MG TABLET PO SCH (09:00)
[2017-02-02] MEDS: AMLODIPINE 5 MG TABLET PO SCH ×2 (09:00→20:43)
[2017-02-02 09:16] VITALS: BP 109/58
--- NOTE | 2017-02-02 09:34 | NUR ---
Patient refusing BP meds Lotensin, norvasc and minoxidil, BP is 109/58, 90 hr, will take labetalol and zanaflex later
[2017-02-02 10:28] LABS: BASOPHILS % (AUTO) 0.5 % (0.0-2.0); EOSINOPHILS # (AUTO) 0.2 K/uL (0.0-0.7); EOSINOPHILS % (AUTO) 5.1 % (0.0-7.0); HEMATOCRIT 34.6 % (40-50); HEMOGLOBIN 11.2 G/DL (14.0-18.0); LYMPHOCYTES # (AUTO) 0.9 K/UL (0.8-4.8); LYMPHOCYTES % (AUTO) 28.6 % (20.5-51.5); MEAN CORPUSCULAR HEMOGLOBIN 28.1 UUG (27.0-31.0); MEAN CORPUSCULAR HGB CONC 32 g/dL (32.0-37.0); MEAN CORPUSCULAR VOLUME 87.1 FL (82.0-92.0); MONOCYTES # (AUTO) 0.6 K/UL (0.1-1.30); MONOCYTES % (AUTO) 18.5 % (0.0-11.0); NEUTROPHILS # (AUTO) 1.4 K/UL (1.8-8.9); NEUTROPHILS % (AUTO) 47.3 % (38.5-71.5); PLATELET COUNT (AUTO) 220 K/UL (150-450); RED BLOOD CELL COUNT(AUTO) 3.98 MIL/UL (4.7-6.1); WHITE BLOOD COUNT (AUTO) 3.1 K/UL (4.0-11.2)
[2017-02-02 10:53] LABS: BILIRUBIN,TOTAL 0.8 mg/dL (0.2-1.0); MAGNESIUM 2.2 mg/dL (1.8-2.4); PHOSPHOROUS 5.9 mg/dL (2.5-4.9); POTASSIUM 4.4 mmol/L (3.5-5.1); TOTAL PROTEIN, SERUM 8.5 g/dL (6.4-8.2)
[2017-02-02 10:55] LABS: CREATININE 11.5 mg/dL (0.6-1.3)
[2017-02-02 11:30] VITALS: BP 116/61
[2017-02-02 11:41] VITALS: BP 116/61
[2017-02-02] MEDS: TIZANIDINE HCL 4 MG TABLET PO SCH ×2 (11:53→20:42)
[2017-02-02] MEDS: LABETALOL HCL 200 MG TABLET PO SCH ×2 (11:54→22:00)
[2017-02-02] MEDS: FOLIC ACID/VITAMIN B COMP W-C TABLET PO SCH (12:09)
[2017-02-02 14:10] LABS: BAND % (MANUAL) 1 % (0-10); EOSINOPHILS % (MANUAL) 3 % (0-8); LYMPHOCYTES % (MANUAL) 29 % (20-40); MONOCYTES % (MANUAL) 15 % (2-10); NEUTROPHILS % (MANUAL) 52 % (42-75)
[2017-02-02 15:47] VITALS: BP 90/45
--- NOTE | 2017-02-02 18:55 | NUR ---
Nurses note: Patient is complaining of pain, Dilaudid 1 mg IV push given, then patient complained of nausea, medicated with zofran IV by second nurse. Patient was eating his lunch at 1630, ate well. Patient was spitting up saliva earlier, had no emesis but complained of nausea. All BP was held today, only took one BP medication when BP was above 105/ syst. Addendum: 02/02/17 at 2016 by SENA JUAREZ RN BP was 116/54 at 1154. Labetalol was given.
--- NOTE | 2017-02-02 19:30 | NUR ---
PT IN ROOM ALERT AWAKE WITH NAUSEA PRESENT. ABLE TO GET UP OOB WITHOUT DIFFICULTY. DENIES ANY HEADACHES OR SOB AT THIS TIME. CALL LIGHT PLACED WITHIN REACH. CONTINUE TO MONITOR. BP 155/92.
[2017-02-02 20:00] VITALS: BP 155/92
[2017-02-02] MEDS: ZOLPIDEM 5 MG TABLET PO PRN (20:42)
[2017-02-02] MEDS ORDERED: ACETAMINOPHEN 325 MG TABLET ONE (23:34)
--- NOTE | 2017-02-03 06:00 | NUR ---
Pt in room alert awake requesting oxygen via non rebreather mask due to smelling "smoke". Oxygen set at 3L/min. Continue to monitor. Oxygen sat noted 95% RA
[2017-02-03] MEDS: PANTOPRAZOLE SODIUM 40 MG TABLET.DR PO SCH (06:11)
[2017-02-03 06:15] VITALS: BP 149/90
[2017-02-03 07:03] LABS: BASOPHILS % (AUTO) 0.4 % (0.0-2.0); EOSINOPHILS # (AUTO) 0.2 K/uL (0.0-0.7); EOSINOPHILS % (AUTO) 4.4 % (0.0-7.0); HEMATOCRIT 33.3 % (36.7-47.1); HEMOGLOBIN 11.1 g/dL (12.5-16.3); LYMPHOCYTES # (AUTO) 1.5 K/uL (20.0-40.0); LYMPHOCYTES % (AUTO) 35.1 % (20.5-51.5); MEAN CORPUSCULAR HEMOGLOBIN 28.4 uug (23.8-33.4); MEAN CORPUSCULAR HGB CONC 33 g/dL (32.5-36.3); MEAN CORPUSCULAR VOLUME 85.2 fL (73.0-96.2); MONOCYTES # (AUTO) 0.7 K/uL (2.0-10.0); MONOCYTES % (AUTO) 16.3 % (0.0-11.0); NEUTROPHILS # (AUTO) 1.9 K/uL (1.8-8.9); NEUTROPHILS % (AUTO) 43.8 % (38.5-71.5); PLATELET COUNT (AUTO) 202 K/uL (152-348); RED BLOOD CELL COUNT(AUTO) 3.91 MIL/uL (4.06-5.63); WHITE BLOOD COUNT (AUTO) 4.2 K/uL (3.6-10.2)
--- NOTE | 2017-02-03 07:05 | NUR ---
Phone call made with Dr Cam who ordered NPO and pt with EGD consult. Pt has only drank stating 20ml of apple juice. aware of pt condition. Surgery Felicia also made aware. Continue to monitor.
[2017-02-03 07:12] LABS: BILIRUBIN,TOTAL 0.7 mg/dL (0.2-1.0); MAGNESIUM 2.6 mg/dL (1.8-2.4); TOTAL PROTEIN, SERUM 8.6 g/dL (6.4-8.2)
[2017-02-03 07:47] LABS: CREATININE 13.6 mg/dL (0.6-1.3)
--- NOTE | 2017-02-03 08:00 | NUR ---
RESTING WELL IN BED NO PAIN OR N/V EGD WAS CANCEL PATIENT REFUSED TO DO PROCEDURE BREAKFAST WAS ORDER
[2017-02-03] MEDS: TIZANIDINE HCL 4 MG TABLET PO SCH ×2 (09:00→12:30)
[2017-02-03] MEDS: AMLODIPINE 5 MG TABLET PO SCH ×2 (09:00→12:30)
[2017-02-03] MEDS: FOLIC ACID/VITAMIN B COMP W-C TABLET PO SCH ×2 (09:00→12:30)
[2017-02-03] MEDS: MINOXIDIL 2.5 MG TABLET PO SCH ×2 (09:00→12:30)
[2017-02-03] MEDS: BENAZEPRIL HCL 20 MG TABLET PO SCH ×2 (09:00→12:30)
[2017-02-03] MEDS: LABETALOL HCL 200 MG TABLET PO SCH ×2 (09:00→12:30)
--- NOTE | 2017-02-03 09:00 | NUR ---
START HD AT BEDSIDE LESLIE PROCEDURE WELL RESTING WITH CALL FOSTER IN REACH
[2017-02-03] MEDS: ONDANSETRON 4 MG/2 ML VIAL IV PRN (09:12)
[2017-02-03] MEDS: CALCIUM ACETATE 667 MG CAPSULE PO SCH ×2 (09:13→12:20)
[2017-02-03] MEDS: HYDROMORPHONE 4 MG/1 ML DISP.SYRIN IV PRN (09:13)
[2017-02-03] MEDS: METOCLOPRAMIDE HCL 5 MG TABLET PO SCH ×2 (09:25→12:20)
[2017-02-03 09:34] LABS: BAND % (MANUAL) 4 % (0-10); EOSINOPHILS % (MANUAL) 4 % (0-8); LYMPHOCYTES % (MANUAL) 32 % (20-40); MONOCYTES % (MANUAL) 15 % (2-10); NEUTROPHILS % (MANUAL) 45 % (42-75)
--- NOTE | 2017-02-03 12:00 | NUR ---
HD FINISHED TAKE OUT 3000ML AND EAT LUNCH AT THIS TIME VS STABLE
[2017-02-03 12:30] VITALS: BP 131/73
--- NOTE | 2017-02-03 14:30 | NUR ---
PATIENT STATE WANT TO GO HOME NOW ,EXPLAINED TO PT WILL CALL MD AND LET HIM KNOW BUT HE DOES NOT WANT TO WAITING ,STATE HE WILL OK AND WANT TO GO HOME ,AMA FORM WAS SIGNS PATIENT WAS EXPLAINED THE RISKS OF LEAVING THE HOSPITAL AT THIS TIME ,VERBALIZSE UNDERSTAND HL WAS DISCONTINUE PRIOR GO HOME AND DR BOWERS WAS INFORM OF PATIENT GO HOME/MESSAGE LEFT
== END 2017-02-03 14:53 | disposition left against medical advice (07) | DRG 199 ==
LOC: ER 20:29 → TELE 01-30 02:41 → MED 02-01 10:04
PROVIDERS: ADMIT Internal Medicine; ATTEND Internal Medicine
DX: I16.9 Hypertensive crisis, unspecified (principal); N18.6 End stage renal disease; I50.32 Chronic diastolic (congestive) heart failure; I13.2 Hypertensive heart and chronic kidney disease with heart failure and with stage 5 chronic kidney disease, or end stage renal disease; Z99.2 Dependence on renal dialysis; Z91.14 Patient's other noncompliance with medication regimen; N25.81 Secondary hyperparathyroidism of renal origin; K21.9 Gastro-esophageal reflux disease without esophagitis; K44.9 Diaphragmatic hernia without obstruction or gangrene; D63.1 Anemia in chronic kidney disease; F17.200 Nicotine dependence, unspecified, uncomplicated; F12.90 Cannabis use, unspecified, uncomplicated; G89.29 Other chronic pain
CPT/HCPCS: 36415; 70030-TC; 70450; 71010; 83690; 83735; 84100; 85025; 85730; 93005; A4663; J0360; J1170; J2405; J3490; J8597

== ENCOUNTER 2017-02-18 14:46 | Inpatient (IN) | payer OTHER ==
[~2017-02-18] VITALS: Ht 170.2 cm; Wt 64.0 kg
--- NOTE | 2017-02-18 15:00 | NUR ---
Pt did not want to review current medications at this time, pt stated he is still taking the same medications as his last visit here.
--- NOTE | 2017-02-18 15:25 | NUR ---
DR JONES AT THE BEDSIDE FOR EVAL AND EXAM.
[2017-02-18] MEDS ORDERED: HYDROMORPHONE 1 MG/1 ML DISP.SYRIN IV ONE (15:30)
[2017-02-18] MEDS ORDERED: ONDANSETRON 4 MG/2 ML VIAL IV ONE (15:30)
[2017-02-18] MEDS ORDERED: LABETALOL HCL 100 MG/20 ML VIAL IV ONE ×2 (15:30→17:00)
[2017-02-18] MEDS ORDERED: IV NORMAL SALINE 500 ML BAG IV ONE (15:30)
[2017-02-18 15:50] LABS: BASOPHILS % (AUTO) 0.4 % (0.0-2.0); EOSINOPHILS # (AUTO) 0.2 K/uL (0.0-0.7); EOSINOPHILS % (AUTO) 3.2 % (0.0-7.0); HEMATOCRIT 28.7 % (36.7-47.1); HEMOGLOBIN 9.6 g/dL (12.5-16.3); LYMPHOCYTES # (AUTO) 1.3 K/uL (20.0-40.0); LYMPHOCYTES % (AUTO) 23.7 % (20.5-51.5); MEAN CORPUSCULAR HEMOGLOBIN 28.8 uug (23.8-33.4); MEAN CORPUSCULAR HGB CONC 34 g/dL (32.5-36.3); MEAN CORPUSCULAR VOLUME 85.7 fL (73.0-96.2); MONOCYTES # (AUTO) 0.5 K/uL (2.0-10.0); MONOCYTES % (AUTO) 8.7 % (0.0-11.0); NEUTROPHILS # (AUTO) 3.5 K/uL (1.8-8.9); PLATELET COUNT (AUTO) 349 K/uL (152-348); RED BLOOD CELL COUNT(AUTO) 3.35 MIL/uL (4.06-5.63); WHITE BLOOD COUNT (AUTO) 5.4 K/uL (3.6-10.2)
[2017-02-18] MEDS ORDERED: HYDROMORPHONE 4 MG/1 ML DISP.SYRIN ONE (15:58)
[2017-02-18] MEDS ORDERED: LABETALOL HCL 100 MG/20 ML VIAL ONE ×2 (15:58→17:10)
[2017-02-18] MEDS ORDERED: ONDANSETRON 4 MG/2 ML VIAL ONE (15:58)
[2017-02-18 15:59] LABS: BILIRUBIN,DIRECT 0.1 mg/dL (0.0-0.2); BILIRUBIN,TOTAL 0.6 mg/dL (0.2-1.0); POTASSIUM 5.4 mmol/L (3.5-5.1); TOTAL PROTEIN, SERUM 9.1 g/dL (6.4-8.2)
[2017-02-18 16:02] LABS: CREATININE 18.1 mg/dL (0.6-1.3)
--- NOTE | 2017-02-18 17:50 | NUR ---
[facility] COLLECTED AND SENT TO LAB. BELONGING LIST COMPLETED.
--- NOTE | 2017-02-18 18:05 | NUR ---
ADMITTED FROM HOME A 47 YO MALE WITH CC OF N/V X3 DAYS, ADM DX ACCELERATED HTN, ESRD. AWAKE ALERT AND ORIENTED X3. C/O GENERALIZED PAIN 8/10. INITIAL ADMISSION ASSESSMENT INITIATED. WILL NOTIFY MD OF ADMISSION
[2017-02-18 18:30] VITALS: BP 212/138
--- NOTE | 2017-02-18 19:00 | NUR ---
RECEIVED REPORT FROM TONIO PUCKETT. PATIENT SLEEPING COMFORTABLY DURING INITIAL ROUNDS. NO S/S OF PAIN/DISCOMFORTS AT THIS TIME. SAFETY MEASURES AND FALL PRECAUTION INITIATED. CONTINUE TO MONITOR.
[2017-02-18 20:00] VITALS: BP 196/130
--- NOTE | 2017-02-18 20:30 | NUR ---
OBTAINED ADMITTING ORDERS FROM FROM DR. RAMESH.
[2017-02-18] MEDS ORDERED: NITROGLYCERIN OINT 1 GM PACKET TP PRN (21:30)
--- NOTE | 2017-02-18 21:50 | NUR ---
bp 196/103 OFFERED NITRO PATCH ORDERED AND NEEDED, PATIENT REFUSED CHARGE NURSE AWARE.
[2017-02-18] MEDS ORDERED: NITROGLYCERIN OINT 1 GM PACKET TP ONE (22:10)
--- NOTE | 2017-02-18 23:21 | NUR ---
BP 198/103 AGAIN OFFERED NITRO PATCH, PT REFUSED. INFORMED PATIENT THE BENEFIT AND RISK OF HAVING THE PATCH BUT HE SAID "IT WILL GO DOWN BELIEVE ME. JUST LET ME SLEEP'. CHARGE NURSE AWARE. WILL CONTINUE TO MONITOR.
[2017-02-19] MEDS ORDERED: NITROGLYCERIN OINT 1 GM PACKET TP SCH
[2017-02-19 00:54] VITALS: BP 198/103
[2017-02-19 04:00] VITALS: BP 158/93
--- NOTE | 2017-02-19 05:15 | NUR ---
OBTAINED ORDER OF DILAUDID AND ZOFRAN FROM DR RAMESH
[2017-02-19] MEDS ORDERED: HYDROMORPHONE 1 MG/1 ML DISP.SYRIN IV PRN (05:30)
--- NOTE | 2017-02-19 05:30 | NUR ---
MEDICATED PATIENT FOR C/O PAIN AND NAUSEA. WILL MONITOR.
[2017-02-19] MEDS: ONDANSETRON 4 MG/2 ML VIAL IV PRN ×2 (05:51→21:23)
[2017-02-19] MEDS: HYDROMORPHONE 2 MG/1 ML DISP.SYRIN ONE ×2 (05:51→06:00)
[2017-02-19] MEDS ORDERED: ONDANSETRON 4 MG/2 ML VIAL ONE (06:02)
--- NOTE | 2017-02-19 08:00 | NUR ---
Patient is awake and alert, laying in bed watching TV. All needs attended to. Bed in low position with call light within reach.
[2017-02-19 08:21] VITALS: BP 196/119
[2017-02-19] MEDS ORDERED: AMLODIPINE 10 MG TABLET PO SCH (10:00)
--- NOTE | 2017-02-19 10:02 | NUR ---
HEMODIALYSIS HAS STARTED. PATIENT AWAKE AND IN STABLE CONDITION. HD NURSE AT BEDSIDE.
[2017-02-19] MEDS ORDERED: ACETAMINOPHEN 325 MG TABLET PO PRN (11:30)
[2017-02-19] MEDS ORDERED: HYDROCODONE/APAP 5-325MG TABLET PO PRN (11:30)
[2017-02-19 11:57] VITALS: BP 200/122
[2017-02-19] MEDS ORDERED: hydrALAZINE HCL 25 MG TABLET PO PRN (12:15)
[2017-02-19] MEDS ORDERED: FOLIC ACID/VITAMIN B COMP W-C TABLET PO ONE (12:30)
[2017-02-19] MEDS: AMLODIPINE 5 MG TABLET PO SCH ×2 (12:37→19:54)
[2017-02-19] MEDS: CALCIUM ACETATE 667 MG CAPSULE PO SCH ×3 (12:37→18:00)
[2017-02-19] MEDS: BENAZEPRIL HCL 20 MG TABLET PO SCH (12:37)
[2017-02-19] MEDS: MORPHINE SULFATE 4 MG/1 ML DISP.SYRIN IV PRN ×2 (12:55→21:23)
--- NOTE | 2017-02-19 15:30 | NUR ---
Hemodialysis has finished. Patient is stable and no complications noted.
[2017-02-19] MEDS: diphenhydrAMINE 25 MG CAP PO PRN ×2 (15:59→21:24)
[2017-02-19] MEDS: METOCLOPRAMIDE HCL 5 MG TABLET PO SCH ×2 (16:30→16:56)
[2017-02-19 16:43] VITALS: BP 210/125
[2017-02-19] MEDS: TIZANIDINE HCL 4 MG TABLET PO SCH ×2 (16:56→17:00)
[2017-02-19] MEDS: MINOXIDIL 2.5 MG TABLET PO SCH (19:55)
[2017-02-19] MEDS: LABETALOL HCL 200 MG TABLET PO SCH (19:55)
--- NOTE | 2017-02-19 20:01 | NUR ---
Received patient awake, no SOB denies chest pain. BP elevated 180/114. Sinus rhythm on the monitor. Routine p.o BP meds given, patient tolerated. Will continue to monitor.
[2017-02-19 20:55] VITALS: BP 180/114
[2017-02-20 00:24] VITALS: BP 153/95
--- NOTE | 2017-02-20 00:41 | NUR ---
Medicated for pain PRN. Patient asleep at this time, sinus rhythm on the monitor. Current BP 155/95 w/ HR 88 bpm
[2017-02-20 04:54] VITALS: BP 132/84
[2017-02-20] MEDS: MORPHINE SULFATE 4 MG/1 ML DISP.SYRIN IV PRN ×3 (05:40→20:31)
[2017-02-20] MEDS: PANTOPRAZOLE SODIUM 40 MG TABLET.DR PO SCH (05:40)
[2017-02-20] MEDS: ONDANSETRON 4 MG/2 ML VIAL IV PRN ×2 (05:40→20:31)
[2017-02-20] MEDS: METOCLOPRAMIDE HCL 5 MG TABLET PO SCH ×3 (05:42→17:20)
[2017-02-20 07:02] LABS: EOSINOPHILS # (AUTO) 0.2 K/uL (0.0-0.7); LYMPHOCYTES # (AUTO) 1.2 K/uL (20.0-40.0); MONOCYTES # (AUTO) 0.4 K/uL (2.0-10.0); WHITE BLOOD COUNT (AUTO) 4.8 K/uL (3.6-10.2)
[2017-02-20 07:15] LABS: BASOPHILS % (AUTO) 0.4 % (0.0-2.0); EOSINOPHILS % (AUTO) 4.3 % (0.0-7.0); LYMPHOCYTES % (AUTO) 25.4 % (20.5-51.5); MEAN CORPUSCULAR HEMOGLOBIN 28.2 uug (23.8-33.4); MEAN CORPUSCULAR HGB CONC 33 g/dL (32.5-36.3); MEAN CORPUSCULAR VOLUME 85.5 fL (73.0-96.2); MONOCYTES % (AUTO) 8.8 % (0.0-11.0); NEUTROPHILS # (AUTO) 2.9 K/uL (1.8-8.9); NEUTROPHILS % (AUTO) 61.1 % (38.5-71.5); PLATELET COUNT (AUTO) 356 K/uL (152-348); RED BLOOD CELL COUNT(AUTO) 3.93 MIL/uL (4.06-5.63)
[2017-02-20 07:16] LABS: HEMATOCRIT 33.6 % (36.7-47.1); HEMOGLOBIN 11.1 g/dL (12.5-16.3)
[2017-02-20 07:25] LABS: MAGNESIUM 2.5 mg/dL (1.8-2.4); PHOSPHOROUS 7.2 mg/dL (2.5-4.9); POTASSIUM 5.2 mmol/L (3.5-5.1)
[2017-02-20 07:26] LABS: CREATININE 15.3 mg/dL (0.6-1.3)
--- NOTE | 2017-02-20 08:00 | NUR ---
PATIENT IS AWAKE, HE'S AOX3. BP 167/100, PATIENT NON COMPLIANT WITH HIS MEDICATION ONLY TOOK 2 OF HIS BP MEDICATION, REFUSING THE REST. DISCUSSED RISK OF NOT FOLLOWING HIS PRESCRIBED TREATMENT. PATIENT AWARE OF RISKS, WILL CONTINUE TO MONITOR PATIENT
[2017-02-20] MEDS: CALCIUM ACETATE 667 MG CAPSULE PO SCH ×3 (08:04→17:21)
[2017-02-20] MEDS: FOLIC ACID/VITAMIN B COMP W-C TABLET PO SCH (08:04)
[2017-02-20] MEDS: MINOXIDIL 2.5 MG TABLET PO SCH ×2 (08:05→20:32)
[2017-02-20] MEDS: BENAZEPRIL HCL 20 MG TABLET PO SCH (08:05)
[2017-02-20] MEDS: LABETALOL HCL 200 MG TABLET PO SCH ×2 (08:06→20:33)
[2017-02-20] MEDS: AMLODIPINE 5 MG TABLET PO SCH ×2 (08:06→20:34)
[2017-02-20] MEDS: TIZANIDINE HCL 4 MG TABLET PO SCH ×2 (08:06→17:20)
[2017-02-20 10:54] VITALS: BP 148/88
--- NOTE | 2017-02-20 13:03 | NUR ---
3 LITRES TAKEN OUT OF DIALYSIS, V/S WITHIN NORMAL LIMITS PATIENT IS ALERT WITH NO SIGNS OR SYMPTOMS OF DISTRESS. WILL CONTINUE TO MONITOR PATIENT
[2017-02-20 15:07] VITALS: BP 132/92
--- NOTE | 2017-02-20 15:27 | NUR ---
PATIENT REMOVED DIALYSIS FISTULA DRESSING, SMALL AMOUNT OF BLOOD NOTED. PATIENT REFUSED A NEW DRESSING REPLACED, REQUESTING ONLY BAND AID.BAND AID APPLIED WILL CONTINUE TO MONITOR PATIENT
[2017-02-20] MEDS: diphenhydrAMINE 25 MG CAP PO PRN (20:32)
[2017-02-21] VITALS: BP 135/90
[2017-02-21 04:00] VITALS: BP 101/75
[2017-02-21] MEDS: METOCLOPRAMIDE HCL 5 MG TABLET PO SCH ×3 (05:29→16:41)
[2017-02-21] MEDS: PANTOPRAZOLE SODIUM 40 MG TABLET.DR PO SCH (05:29)
[2017-02-21] MEDS: MORPHINE SULFATE 4 MG/1 ML DISP.SYRIN IV PRN ×2 (05:29→15:23)
[2017-02-21 06:32] LABS: BASOPHILS % (AUTO) 0.4 % (0.0-2.0); EOSINOPHILS # (AUTO) 0.1 K/uL (0.0-0.7); EOSINOPHILS % (AUTO) 3.7 % (0.0-7.0); HEMATOCRIT 34.6 % (36.7-47.1); HEMOGLOBIN 11.4 g/dL (12.5-16.3); LYMPHOCYTES # (AUTO) 1.3 K/uL (20.0-40.0); LYMPHOCYTES % (AUTO) 34.9 % (20.5-51.5); MEAN CORPUSCULAR HEMOGLOBIN 28.2 uug (23.8-33.4); MEAN CORPUSCULAR HGB CONC 33 g/dL (32.5-36.3); MEAN CORPUSCULAR VOLUME 85.6 fL (73.0-96.2); MONOCYTES # (AUTO) 0.5 K/uL (2.0-10.0); MONOCYTES % (AUTO) 13.4 % (0.0-11.0); NEUTROPHILS # (AUTO) 1.8 K/uL (1.8-8.9); NEUTROPHILS % (AUTO) 47.6 % (38.5-71.5); PLATELET COUNT (AUTO) 327 K/uL (152-348); RED BLOOD CELL COUNT(AUTO) 4.05 MIL/uL (4.06-5.63); WHITE BLOOD COUNT (AUTO) 3.8 K/uL (3.6-10.2)
[2017-02-21 06:51] LABS: MAGNESIUM 2.3 mg/dL (1.8-2.4); PHOSPHOROUS 6.6 mg/dL (2.5-4.9); POTASSIUM 5.1 mmol/L (3.5-5.1)
--- NOTE | 2017-02-21 07:00 | NUR ---
No significant change, vital signs stable. Assisted w/ all needs, sinus rhythm on the monitor. Kept comfortable.
[2017-02-21] MEDS: CALCIUM ACETATE 667 MG CAPSULE PO SCH ×4 (08:00→17:34)
[2017-02-21] MEDS: TIZANIDINE HCL 4 MG TABLET PO SCH ×2 (08:14→16:41)
[2017-02-21] MEDS: MINOXIDIL 2.5 MG TABLET PO SCH ×3 (08:14→21:14)
[2017-02-21] MEDS: FOLIC ACID/VITAMIN B COMP W-C TABLET PO SCH (08:14)
[2017-02-21] MEDS: AMLODIPINE 5 MG TABLET PO SCH ×3 (08:15→21:13)
[2017-02-21] MEDS: BENAZEPRIL HCL 20 MG TABLET PO SCH ×2 (08:15→09:00)
[2017-02-21] MEDS: LABETALOL HCL 200 MG TABLET PO SCH ×3 (08:16→21:13)
[2017-02-21 09:09] LABS: BAND % (MANUAL) 1 % (0-10); EOSINOPHILS % (MANUAL) 5 % (0-8); LYMPHOCYTES % (MANUAL) 33 % (20-40); MONOCYTES % (MANUAL) 13 % (2-10); NEUTROPHILS % (MANUAL) 48 % (42-75)
--- NOTE | 2017-02-21 10:30 | NUR ---
ASSUMED CARE OF THIS PATIENT IN HIS BED ASLEEP EASILY AROUSABLE ON ROUNDS NO S/S OF PAIN OR DISCOMFORTS AT THIS TIME TELEMETRY IS SR WITH NO ECTOPY MADE COMFORTABLE AND WILL CONTINUE TO OBSERVE.
[2017-02-21 12:14] VITALS: BP 94/69
--- NOTE | 2017-02-21 13:24 | NUR ---
ORDER NOTED TO DISCHARGE PATIENT HOME BUT PATIENT STATED FEELS WEAK WILL PREFER TO LEAVE TOMORROW IF ITS AT ALL POSSIBLE SO I SPOKE WITH DR HOPE AND SHE STATED THAT IT WAS OKAY FOR THE PATIENT TO LEAVE IN THE MORNING PATIENT NOTIFIED.
[2017-02-21 15:25] VITALS: BP 115/75
--- NOTE | 2017-02-21 18:00 | NUR ---
PATIENT IS STILL HERE AWAITING FOR HER SON TO PICK HER UP. Addendum: 02/21/17 at 1832 by BRAYDEN MEYER RN WRONG ENTRY WRONG PATIENT
--- NOTE | 2017-02-21 18:33 | NUR ---
RESTING IN HIS BED STILL WEAK BUT BETTER AWARE THAT HE IS DISCHARGED AND HAS TO LEAVE IN THE MORNING.
[2017-02-21 19:00] VITALS: BP 134/79
--- NOTE | 2017-02-21 22:46 | NUR ---
PATIENT A/OX3, STABLE CONDITION, NO S/S OF DISTRESS. SBP IN 130S. BED IN LOCKED/LOW POSITION, SIDE RAILS UP X2, BED ALARM ON, CALL LIGHT WITHIN REACH. PATIENT ALREADY HAS DISCHARGE ORDERS IN PLACE FROM MD BUT WILL BE LEAVING TOMORROW MORNING. BP WILL BE MONITORED. SAFETY/COMFORT WILL BE PROVIDED.
[2017-02-22 04:00] VITALS: BP 109/79
[2017-02-22] MEDS: PANTOPRAZOLE SODIUM 40 MG TABLET.DR PO SCH (06:20)
[2017-02-22] MEDS: METOCLOPRAMIDE HCL 5 MG TABLET PO SCH ×3 (06:20→13:03)
[2017-02-22] MEDS: CALCIUM ACETATE 667 MG CAPSULE PO SCH ×2 (08:00→11:20)
--- NOTE | 2017-02-22 08:56 | NUR ---
BRITTNEYSLO WAS HELD BECAUSE PT IS HAVING DIALYSIS DONE TODAY.
[2017-02-22] MEDS: MINOXIDIL 2.5 MG TABLET PO SCH (09:00)
[2017-02-22] MEDS: LABETALOL HCL 200 MG TABLET PO SCH (09:00)
[2017-02-22] MEDS: AMLODIPINE 5 MG TABLET PO SCH (09:00)
[2017-02-22] MEDS: BENAZEPRIL HCL 20 MG TABLET PO SCH (09:00)
[2017-02-22] MEDS: TIZANIDINE HCL 4 MG TABLET PO SCH (11:19)
[2017-02-22] MEDS: FOLIC ACID/VITAMIN B COMP W-C TABLET PO SCH (11:19)
[2017-02-22 11:53] VITALS: BP 102/71
--- NOTE | 2017-02-22 13:25 | NUR ---
PT DISCHARGE WITH EXIT-CARE PACKET, ALL BELONGINGS, PRESCRIPTIONS AND VALUABLES. PT IS STABLE WITH A BP OF 104/67, PT HAD DIALYSIS DONE TODAY. DR. HOPE WAS NOTIFIED AND AGREED TO CONTINUE D/C.
[2017-02-22 14:49] VITALS: BP 104/63
== END 2017-02-22 13:25 | disposition home or self-care (01) | DRG 199 ==
LOC: ER 14:47 → TELE-TD 17:42 → TELE 02-20 14:06 → MED 02-21 13:00
PROVIDERS: ADMIT Internal Medicine; ATTEND Internal Medicine Nephrology
PROC: 5A1D70Z Performance of Urinary Filtration, Intermittent, Less than 6 Hours Per Day (ICD-10-PCS; principal; 2017-02-19)
DX: I16.9 Hypertensive crisis, unspecified (principal); N18.6 End stage renal disease; I50.32 Chronic diastolic (congestive) heart failure; I13.2 Hypertensive heart and chronic kidney disease with heart failure and with stage 5 chronic kidney disease, or end stage renal disease; E87.1 Hypo-osmolality and hyponatremia; Z99.2 Dependence on renal dialysis; Z91.15 Patient's noncompliance with renal dialysis; R11.2 Nausea with vomiting, unspecified; E83.9 Disorder of mineral metabolism, unspecified; F17.200 Nicotine dependence, unspecified, uncomplicated; G89.29 Other chronic pain; E83.39 Other disorders of phosphorus metabolism; Z91.14 Patient's other noncompliance with medication regimen; K21.9 Gastro-esophageal reflux disease without esophagitis; D64.9 Anemia, unspecified
CPT/HCPCS: 36415; 70030-TC; 71010; 83690; 83735; 84100; 85025; 90937; 93005; A4663; J1170; J2270; J2405; J3490; J8597; Q0163

== ENCOUNTER 2017-03-03 17:43 | Inpatient (IN) | payer OTHER ==
[~2017-03-03] VITALS: Ht 170.2 cm; Wt 65.8 kg
--- NOTE | 2017-03-03 23:14 | NUR ---
SALINE LOCK PLACED,LABS DRAWNAND SENT, EKG DONE, CXR DONE.
[2017-03-03 23:19] LABS: BASOPHILS % (AUTO) 0.4 % (0.0-2.0); EOSINOPHILS # (AUTO) 0.2 K/uL (0.0-0.7); EOSINOPHILS % (AUTO) 3.7 % (0.0-7.0); HEMATOCRIT 32.5 % (36.7-47.1); HEMOGLOBIN 10.9 g/dL (12.5-16.3); LYMPHOCYTES # (AUTO) 1.3 K/uL (20.0-40.0); LYMPHOCYTES % (AUTO) 23.4 % (20.5-51.5); MEAN CORPUSCULAR HEMOGLOBIN 28.5 uug (23.8-33.4); MEAN CORPUSCULAR HGB CONC 34 g/dL (32.5-36.3); MEAN CORPUSCULAR VOLUME 85.2 fL (73.0-96.2); MONOCYTES # (AUTO) 0.4 K/uL (2.0-10.0); NEUTROPHILS # (AUTO) 3.6 K/uL (1.8-8.9); NEUTROPHILS % (AUTO) 64.5 % (38.5-71.5); PLATELET COUNT (AUTO) 342 K/uL (152-348); RED BLOOD CELL COUNT(AUTO) 3.82 MIL/uL (4.06-5.63); WHITE BLOOD COUNT (AUTO) 5.5 K/uL (3.6-10.2)
[2017-03-03 23:32] LABS: POTASSIUM 3.7 mmol/L (3.5-5.1)
[2017-03-03 23:36] LABS: CREATININE 8.2 mg/dL (0.6-1.3)
[2017-03-03 23:41] LABS: BILIRUBIN,DIRECT 0.2 mg/dL (0.0-0.2); BILIRUBIN,TOTAL 0.9 mg/dL (0.2-1.0); TOTAL PROTEIN, SERUM 10.1 g/dL (6.4-8.2)
[2017-03-04] MEDS ORDERED: CLONIDINE HCL 0.2 MG TABLET PO ONE
[2017-03-04] MEDS ORDERED: ONDANSETRON IV *ER 4 MG/2 ML VIAL IV ONE
--- NOTE | 2017-03-04 00:09 | NUR ---
MEDS ADMINISTERED. PT POSITIONED FOR COMFORT.
[2017-03-04] MEDS ORDERED: CLONIDINE HCL 0.2 MG TABLET ONE ×2 (00:20→09:38)
[2017-03-04] MEDS ORDERED: ONDANSETRON 4 MG/2 ML VIAL ONE ×2 (00:21→09:38)
[2017-03-04] MEDS ORDERED: HYDROMORPHONE 2 MG/1 ML DISP.SYRIN ONE (00:21)
--- NOTE | 2017-03-04 01:10 | NUR ---
DR HOPE FROM THE [facility] CALLED BACK/
--- NOTE | 2017-03-04 02:45 | NUR ---
PT SLEEPING, EYES CLOSED, NO DISTRESS NOTED.
--- NOTE | 2017-03-04 07:15 | NUR ---
SBAR REPORT TO QUYEN ELIZALDE. PT SLEEPING
[2017-03-04] MEDS ORDERED: [UNRECOGNIZED DRUG - OTHER] PO SCH (07:30)
[2017-03-04] MEDS ORDERED: ACETAMINOPHEN 325 MG TABLET PO PRN (07:45)
[2017-03-04] MEDS ORDERED: ONDANSETRON IV *ER 4 MG/2 ML VIAL IV PRN (07:45)
[2017-03-04] MEDS ORDERED: CLONIDINE HCL 0.2 MG TABLET PO PRN (07:45)
[2017-03-04] MEDS ORDERED: hydrALAZINE HCL 25 MG TABLET PO PRN (07:45)
[2017-03-04 08:05] LABS: BASOPHILS % (AUTO) 0.4 % (0.0-2.0); EOSINOPHILS # (AUTO) 0.2 K/uL (0.0-0.7); EOSINOPHILS % (AUTO) 4.7 % (0.0-7.0); HEMATOCRIT 29.7 % (36.7-47.1); HEMOGLOBIN 9.9 g/dL (12.5-16.3); LYMPHOCYTES # (AUTO) 1.2 K/uL (20.0-40.0); MEAN CORPUSCULAR HEMOGLOBIN 28.7 uug (23.8-33.4); MEAN CORPUSCULAR HGB CONC 34 g/dL (32.5-36.3); MEAN CORPUSCULAR VOLUME 85.8 fL (73.0-96.2); MONOCYTES # (AUTO) 0.5 K/uL (2.0-10.0); MONOCYTES % (AUTO) 11.4 % (0.0-11.0); NEUTROPHILS # (AUTO) 2.3 K/uL (1.8-8.9); NEUTROPHILS % (AUTO) 55.5 % (38.5-71.5); PLATELET COUNT (AUTO) 309 K/uL (152-348); RED BLOOD CELL COUNT(AUTO) 3.46 MIL/uL (4.06-5.63); WHITE BLOOD COUNT (AUTO) 4.2 K/uL (3.6-10.2)
[2017-03-04 08:53] LABS: POTASSIUM 4.6 mmol/L (3.5-5.1)
[2017-03-04 08:55] LABS: CREATININE 9.1 mg/dL (0.6-1.3)
[2017-03-04] MEDS ORDERED: FOLIC ACID/VITAMIN B COMP W-C TABLET PO SCH (09:00)
[2017-03-04] MEDS ORDERED: PANTOPRAZOLE SODIUM 40 MG TABLET.DR PO SCH (09:00)
[2017-03-04] MEDS ORDERED: AMLODIPINE 10 MG TABLET PO SCH (09:00)
[2017-03-04] MEDS ORDERED: TIZANIDINE HCL PO SCH (09:00)
[2017-03-04] MEDS ORDERED: CALCIUM ACETATE 667 MG CAPSULE PO SCH (09:00)
[2017-03-04] MEDS ORDERED: MINOXIDIL 2.5 MG TABLET PO SCH (09:00)
[2017-03-04] MEDS: BENAZEPRIL HCL 20 MG TABLET PO SCH (09:28)
[2017-03-04] MEDS: LABETALOL HCL 200 MG TABLET PO SCH ×2 (09:29→21:11)
--- NOTE | 2017-03-04 09:31 | NUR ---
0855- Pharmacy was called 3x for some of the AM meds due for this patient- still waiting for Phoslo, nephro-omid & minoxidil pills at this time.
[2017-03-04] MEDS ORDERED: BENAZEPRIL HCL 10 MG TABLET ONE (09:37)
[2017-03-04] MEDS ORDERED: AMLODIPINE 5 MG TABLET ONE ×2 (09:37→16:50)
[2017-03-04] MEDS ORDERED: LABETALOL HCL 100 MG TABLET ONE (09:38)
[2017-03-04] MEDS ORDERED: hydrALAZINE HCL 25 MG TABLET ONE (09:39)
--- NOTE | 2017-03-04 09:49 | NUR ---
Patient is on hospital bed & is eating breakfast with fair appetite, pending for med-surgical transfer at this time. Patient wants pains medicine notified.
[2017-03-04] MEDS ORDERED: HYDROMORPHONE 1 MG/1 ML DISP.SYRIN IV ONE ×2 (10:00)
[2017-03-04] MEDS ORDERED: HYDROMORPHONE 4 MG/1 ML DISP.SYRIN ONE (10:13)
--- NOTE | 2017-03-04 11:19 | NUR ---
Patient is resting comfortably in bed with eyes closed. PATIENT IS PAIN FREE AT THIS TIME.
[2017-03-04] MEDS: METOCLOPRAMIDE HCL 5 MG TABLET PO SCH ×2 (11:30→16:40)
[2017-03-04] MEDS: TIZANIDINE HCL 4 MG TABLET PO SCH ×2 (11:30→17:11)
[2017-03-04] MEDS: CALCIUM ACETATE 667 MG CAPSULE PO SCH ×2 (11:30→18:00)
[2017-03-04] MEDS: MINOXIDIL 2.5 MG TABLET PO SCH ×2 (11:31→21:10)
[2017-03-04] MEDS: FOLIC ACID/VITAMIN B COMP W-C TABLET PO SCH (11:31)
--- NOTE | 2017-03-04 13:26 | NUR ---
Lunch tray offered. Patient prefers Nephro drink. Dietary was called.
[2017-03-04] MEDS: AMLODIPINE 5 MG TABLET PO SCH (16:36)
[2017-03-04] MEDS ORDERED: METOCLOPRAMIDE HCL 10 MG TABLET ONE ×2 (16:50→16:59)
--- NOTE | 2017-03-04 17:11 | NUR ---
Tizanidine pill is not available in ER [facility]. Inpatient pharmacy was called accordingly.
[2017-03-04 17:40] VITALS: BP 145/87
--- NOTE | 2017-03-04 17:40 | NUR ---
PT ARRIVED TO UNIT CALM, COOPERATIVE, STABLE. PT TEACHING ABOUT IMPORTANCE OF BEING COMPLIANT W/ DIALYSIS. CALL LIGHT IN REACH, BED IN LOWEST LOCKED POSITION.
[2017-03-04] MEDS: HYDROMORPHONE 2 MG/1 ML DISP.SYRIN IVP PRN (21:11)
[2017-03-04 22:45] VITALS: BP 125/76
[2017-03-05] MEDS: HYDROMORPHONE 2 MG/1 ML DISP.SYRIN IVP PRN ×3 (02:38→21:01)
[2017-03-05 05:32] VITALS: BP 108/65
--- NOTE | 2017-03-05 06:39 | NUR ---
Pt slept well, in no distress. Pain management as ordered. HD access on left forearm intact, no bleeding. Safety measures in place. Will continue to monitor.
[2017-03-05] MEDS: PANTOPRAZOLE SODIUM 40 MG TABLET.DR PO SCH (06:47)
[2017-03-05] MEDS: METOCLOPRAMIDE HCL 5 MG TABLET PO SCH ×3 (06:47→17:31)
[2017-03-05 06:53] LABS: POTASSIUM 4.7 mmol/L (3.5-5.1)
[2017-03-05 06:54] LABS: BASOPHILS % (AUTO) 0.5 % (0.0-2.0); EOSINOPHILS # (AUTO) 0.1 K/uL (0.0-0.7); EOSINOPHILS % (AUTO) 2.8 % (0.0-7.0); HEMATOCRIT 31.5 % (36.7-47.1); HEMOGLOBIN 10.5 g/dL (12.5-16.3); LYMPHOCYTES # (AUTO) 1.5 K/uL (20.0-40.0); LYMPHOCYTES % (AUTO) 31.1 % (20.5-51.5); MEAN CORPUSCULAR HEMOGLOBIN 28.4 uug (23.8-33.4); MEAN CORPUSCULAR HGB CONC 33 g/dL (32.5-36.3); MEAN CORPUSCULAR VOLUME 85.6 fL (73.0-96.2); MONOCYTES # (AUTO) 0.5 K/uL (2.0-10.0); NEUTROPHILS # (AUTO) 2.7 K/uL (1.8-8.9); NEUTROPHILS % (AUTO) 55.6 % (38.5-71.5); PLATELET COUNT (AUTO) 320 K/uL (152-348); RED BLOOD CELL COUNT(AUTO) 3.68 MIL/uL (4.06-5.63); WHITE BLOOD COUNT (AUTO) 4.8 K/uL (3.6-10.2)
[2017-03-05 08:22] LABS: CREATININE 11.8 mg/dL (0.6-1.3)
[2017-03-05] MEDS: AMLODIPINE 5 MG TABLET PO SCH ×2 (08:59→17:00)
[2017-03-05] MEDS: CALCIUM ACETATE 667 MG CAPSULE PO SCH ×3 (08:59→18:00)
[2017-03-05] MEDS: BENAZEPRIL HCL 20 MG TABLET PO SCH (09:00)
[2017-03-05] MEDS: LABETALOL HCL 200 MG TABLET PO SCH ×2 (09:00→21:00)
[2017-03-05] MEDS: TIZANIDINE HCL 4 MG TABLET PO SCH ×2 (09:00→17:31)
[2017-03-05] MEDS: MINOXIDIL 2.5 MG TABLET PO SCH ×2 (09:00→21:00)
[2017-03-05] MEDS: FOLIC ACID/VITAMIN B COMP W-C TABLET PO SCH (09:03)
[2017-03-05 11:51] VITALS: BP 88/43
--- NOTE | 2017-03-05 12:20 | NUR ---
DILAUDID WAS PULLED FOR PT. BP WAS 84/49. THE DILAUDID WAS HELD. AND WASTED AND WITNESSED BY TONIO COVINGTON.
--- NOTE | 2017-03-05 12:30 | NUR ---
PT REFUSED PHOSLO AND METOCLOPRAMIDE.
[2017-03-05 16:17] VITALS: BP 93/52
--- NOTE | 2017-03-05 17:32 | NUR ---
AMLODIPINE HELD, BP 95/53.
[2017-03-05 20:00] VITALS: BP 121/58
--- NOTE | 2017-03-05 21:00 | NUR ---
PT AWAKE IN BED. PT STATES HE IS IN PAIN. PAIN LEVEL OF 10 ALL OVER HIS BODY. PT REFUSE HIS BLOOD PRESSURE MEDICATIONS. BP 121/58 PULSE 92. IV SITE INTACT AND PATENT. SAFETY AND COMFORT PROVIDED.
[2017-03-06] MEDS ORDERED: TEMAZEPAM 15 MG CAPSULE PO PRN (00:30)
[2017-03-06] MEDS ORDERED: TEMAZEPAM 15 MG CAPSULE ONE (00:46)
[2017-03-06] MEDS: HYDROMORPHONE 2 MG/1 ML DISP.SYRIN IVP PRN ×3 (01:20→12:40)
[2017-03-06 04:46] VITALS: BP 101/62
--- NOTE | 2017-03-06 06:30 | NUR ---
PT VITAL SIGN STABLE. PAIN MANAGEMENT ORDERED. IV INTACT AND PATENT. NO SIGNS OF DISTRESS. WILL CONTINUE TO MONITOR.SAFETY AND COMFORT PROVIDED.
[2017-03-06] MEDS: METOCLOPRAMIDE HCL 5 MG TABLET PO SCH ×3 (06:35→17:25)
[2017-03-06] MEDS: PANTOPRAZOLE SODIUM 40 MG TABLET.DR PO SCH (06:35)
--- NOTE | 2017-03-06 07:00 | NUR ---
RECEIVED REPORT FROM PERSONAL FINANCIAL REPRESENTATIVE NURSE, PATIENT IN BED ASLEEP, NO EVIDENCE OF DISTRESS NOTED, BED IN LOW POSITION, SIDE RAILS UP X2.
[2017-03-06 07:34] LABS: BASOPHILS % (AUTO) 0.4 % (0.0-2.0); EOSINOPHILS # (AUTO) 0.2 K/uL (0.0-0.7); HEMATOCRIT 29.2 % (36.7-47.1); HEMOGLOBIN 9.9 g/dL (12.5-16.3); LYMPHOCYTES # (AUTO) 1.8 K/uL (20.0-40.0); LYMPHOCYTES % (AUTO) 36.4 % (20.5-51.5); MEAN CORPUSCULAR HEMOGLOBIN 28.6 uug (23.8-33.4); MEAN CORPUSCULAR HGB CONC 34 g/dL (32.5-36.3); MEAN CORPUSCULAR VOLUME 84.3 fL (73.0-96.2); MONOCYTES # (AUTO) 0.5 K/uL (2.0-10.0); MONOCYTES % (AUTO) 10.6 % (0.0-11.0); NEUTROPHILS # (AUTO) 2.5 K/uL (1.8-8.9); NEUTROPHILS % (AUTO) 49.6 % (38.5-71.5); PLATELET COUNT (AUTO) 307 K/uL (152-348); RED BLOOD CELL COUNT(AUTO) 3.46 MIL/uL (4.06-5.63); WHITE BLOOD COUNT (AUTO) 5.1 K/uL (3.6-10.2)
[2017-03-06 08:15] LABS: BILIRUBIN,TOTAL 0.6 mg/dL (0.2-1.0); MAGNESIUM 2.4 mg/dL (1.8-2.4); TOTAL PROTEIN, SERUM 8.6 g/dL (6.4-8.2)
[2017-03-06 08:20] LABS: CREATININE 14.9 mg/dL (0.6-1.3); PHOSPHOROUS 9.7 mg/dL (2.5-4.9)
[2017-03-06] MEDS: LABETALOL HCL 200 MG TABLET PO SCH (09:00)
[2017-03-06] MEDS: BENAZEPRIL HCL 20 MG TABLET PO SCH (09:00)
[2017-03-06] MEDS: AMLODIPINE 5 MG TABLET PO SCH ×2 (09:00→17:25)
[2017-03-06] MEDS: MINOXIDIL 2.5 MG TABLET PO SCH (09:00)
[2017-03-06 11:30] VITALS: BP 135/65
[2017-03-06] MEDS: CALCIUM ACETATE 667 MG CAPSULE PO SCH ×2 (12:39→12:44)
[2017-03-06] MEDS: TIZANIDINE HCL 4 MG TABLET PO SCH ×2 (12:39→17:25)
[2017-03-06] MEDS: FOLIC ACID/VITAMIN B COMP W-C TABLET PO SCH (12:40)
--- NOTE | 2017-03-06 13:00 | NUR ---
PATIENT RECEIVED DIALYSIS TODAY AND TOLERATING WELL.
[2017-03-06 16:00] VITALS: BP 97/60
[2017-03-06 17:25] VITALS: BP 124/71
--- NOTE | 2017-03-06 17:50 | NUR ---
PATIENT WAS GIVEN DISCHARGE IN INSTRUCTIONS, IV SITE DISCONTINUED, EDUCATION ON RENAL DIET AND DIALYSIS PROVIDED. NO EVIDENCE OF DISTRESS NOTED UPON DISCHARGE.
== END 2017-03-06 17:45 | disposition home or self-care (01) | DRG 470 ==
LOC: ER 17:44 → TRANSITION 03-04 09:44 → MED 03-04 17:22
PROVIDERS: ADMIT Internal Medicine Nephrology; ATTEND Internal Medicine Nephrology
PROC: 5A1D70Z Performance of Urinary Filtration, Intermittent, Less than 6 Hours Per Day (ICD-10-PCS; principal; 2017-03-06)
DX: I13.11 Hypertensive heart and chronic kidney disease without heart failure, with stage 5 chronic kidney disease, or end stage renal disease (principal); I21.A1 Myocardial infarction type 2; N18.6 End stage renal disease; Z99.2 Dependence on renal dialysis; K29.70 Gastritis, unspecified, without bleeding; K21.9 Gastro-esophageal reflux disease without esophagitis; G89.29 Other chronic pain; E83.39 Other disorders of phosphorus metabolism; Z91.19 Patient's noncompliance with other medical treatment and regimen; I70.0 Atherosclerosis of aorta; F12.90 Cannabis use, unspecified, uncomplicated; F17.200 Nicotine dependence, unspecified, uncomplicated; D64.9 Anemia, unspecified; Z79.899 Other long term (current) drug therapy; Z87.01 Personal history of pneumonia (recurrent)
CPT/HCPCS: 36415; 70030-TC; 71045; 83735; 84100; 85025; 85730; 90937; 93005; A4663; J1170; J2405; J8597

== ENCOUNTER 2017-03-16 21:46 | Inpatient (IN) | payer OTHER ==
[~2017-03-16] VITALS: Ht 170.2 cm; Wt 64.9 kg
[2017-03-16] MEDS ORDERED: IV NORMAL SALINE 1000 ML BAG IV ONE (22:30)
[2017-03-16] MEDS ORDERED: ONDANSETRON 4 MG/2 ML VIAL IV ONE (22:30)
[2017-03-16] MEDS ORDERED: HYDROMORPHONE 1 MG/1 ML DISP.SYRIN IV ONE (22:30)
[2017-03-16] MEDS ORDERED: LABETALOL HCL 100 MG/20 ML VIAL IV ONE ×2 (22:30→23:30)
[2017-03-16 22:50] LABS: BASOPHILS % (AUTO) 0.5 % (0.0-2.0); EOSINOPHILS # (AUTO) 0.2 K/uL (0.0-0.7); EOSINOPHILS % (AUTO) 2.8 % (0.0-7.0); HEMATOCRIT 27.2 % (36.7-47.1); HEMOGLOBIN 9.1 g/dL (12.5-16.3); LYMPHOCYTES # (AUTO) 1.4 K/uL (20.0-40.0); LYMPHOCYTES % (AUTO) 23.8 % (20.5-51.5); MEAN CORPUSCULAR HEMOGLOBIN 28.8 uug (23.8-33.4); MEAN CORPUSCULAR HGB CONC 33 g/dL (32.5-36.3); MEAN CORPUSCULAR VOLUME 86.2 fL (73.0-96.2); MONOCYTES # (AUTO) 0.5 K/uL (2.0-10.0); MONOCYTES % (AUTO) 8.5 % (0.0-11.0); NEUTROPHILS # (AUTO) 3.8 K/uL (1.8-8.9); NEUTROPHILS % (AUTO) 64.4 % (38.5-71.5); PLATELET COUNT (AUTO) 299 K/uL (152-348); RED BLOOD CELL COUNT(AUTO) 3.16 MIL/uL (4.06-5.63)
[2017-03-16] MEDS ORDERED: HYDROMORPHONE 2 MG/1 ML DISP.SYRIN ONE (22:57)
[2017-03-16] MEDS ORDERED: ONDANSETRON 4 MG/2 ML VIAL ONE (22:57)
[2017-03-16] MEDS ORDERED: LABETALOL HCL 100 MG/20 ML VIAL ONE (22:58)
[2017-03-16 22:59] LABS: BILIRUBIN,DIRECT 0.2 mg/dL (0.0-0.2); BILIRUBIN,TOTAL 0.8 mg/dL (0.2-1.0); POTASSIUM 4.7 mmol/L (3.5-5.1)
[2017-03-16 23:04] LABS: CREATININE 13.3 mg/dL (0.6-1.3)
[2017-03-17] MEDS ORDERED: LABETALOL HCL 100 MG/20 ML VIAL IV ONE
[2017-03-17] MEDS ORDERED: hydrALAZINE HCL 20 MG/1 ML VIAL IV ONE (00:15)
[2017-03-17] MEDS ORDERED: LABETALOL HCL 100 MG/20 ML VIAL ONE (00:17)
[2017-03-17] MEDS ORDERED: hydrALAZINE HCL 20 MG/1 ML VIAL ONE (00:42)
[2017-03-17 01:30] VITALS: BP 169/101
[2017-03-17] MEDS ORDERED: CALC667C6 PO (01:50)
[2017-03-17] MEDS ORDERED: AMLO10TA2 PO (01:50)
[2017-03-17] MEDS ORDERED: TIZA4TAB4 PO (01:50)
[2017-03-17] MEDS ORDERED: FOLI0.8T2 PO (01:50)
[2017-03-17] MEDS ORDERED: PANT40TA4 PO (01:50)
[2017-03-17] MEDS ORDERED: MINO2.5T PO (01:50)
[2017-03-17] MEDS ORDERED: BENA40TA2 PO (01:50)
[2017-03-17] MEDS ORDERED: METO-295 PO (01:50)
[2017-03-17] MEDS ORDERED: LABE200T PO (01:50)
[2017-03-17] MEDS: ONDANSETRON 4 MG/2 ML VIAL IV PRN ×3 (01:53→18:46)
[2017-03-17] MEDS ORDERED: ONDANSETRON 4 MG/2 ML VIAL ONE (02:06)
[2017-03-17 04:00] VITALS: BP 178/109
[2017-03-17] MEDS ORDERED: hydrALAZINE HCL 50 MG TABLET PO SCH (04:00)
[2017-03-17] MEDS ORDERED: hydrALAZINE HCL 50 MG TABLET ONE (04:26)
[2017-03-17] MEDS: HYDROMORPHONE 2 MG/1 ML DISP.SYRIN IV PRN ×3 (05:39→20:10)
[2017-03-17] MEDS ORDERED: HYDROMORPHONE 2 MG/1 ML DISP.SYRIN ONE (05:55)
[2017-03-17 08:09] LABS: BASOPHILS % (AUTO) 0.5 % (0.0-2.0); EOSINOPHILS # (AUTO) 0.1 K/uL (0.0-0.7); EOSINOPHILS % (AUTO) 2.4 % (0.0-7.0); HEMATOCRIT 27.7 % (36.7-47.1); HEMOGLOBIN 9.2 g/dL (12.5-16.3); LYMPHOCYTES # (AUTO) 1.7 K/uL (20.0-40.0); LYMPHOCYTES % (AUTO) 30.3 % (20.5-51.5); MEAN CORPUSCULAR HEMOGLOBIN 28.8 uug (23.8-33.4); MEAN CORPUSCULAR HGB CONC 33 g/dL (32.5-36.3); MEAN CORPUSCULAR VOLUME 86.4 fL (73.0-96.2); MONOCYTES # (AUTO) 0.4 K/uL (2.0-10.0); MONOCYTES % (AUTO) 7.2 % (0.0-11.0); NEUTROPHILS # (AUTO) 3.3 K/uL (1.8-8.9); NEUTROPHILS % (AUTO) 59.6 % (38.5-71.5); PLATELET COUNT (AUTO) 299 K/uL (152-348); WHITE BLOOD COUNT (AUTO) 5.6 K/uL (3.6-10.2)
[2017-03-17 08:12] LABS: BILIRUBIN,TOTAL 0.9 mg/dL (0.2-1.0); POTASSIUM 4.3 mmol/L (3.5-5.1); TOTAL PROTEIN, SERUM 8.9 g/dL (6.4-8.2)
[2017-03-17 08:14] LABS: CREATININE 11.5 mg/dL (0.6-1.3)
[2017-03-17] MEDS ORDERED: NITROGLYCERIN OINT 1 GM PACKET TP PRN (08:30)
[2017-03-17] MEDS: AMLODIPINE 5 MG TABLET PO SCH ×3 (09:00→22:12)
[2017-03-17] MEDS ORDERED: AMLODIPINE 10 MG TABLET PO SCH (09:00)
[2017-03-17] MEDS: PANTOPRAZOLE SODIUM 40 MG TABLET.DR PO SCH (09:24)
[2017-03-17] MEDS: FOLIC ACID/VITAMIN B COMP W-C TABLET PO SCH (09:30)
[2017-03-17] MEDS: BENAZEPRIL HCL 20 MG TABLET PO SCH (09:30)
[2017-03-17] MEDS: MINOXIDIL 2.5 MG TABLET PO SCH ×2 (09:30→22:12)
[2017-03-17] MEDS: LABETALOL HCL 200 MG TABLET PO SCH ×3 (09:30→22:12)
[2017-03-17] MEDS: METOCLOPRAMIDE HCL 10 MG TABLET PO SCH ×2 (11:30→16:30)
[2017-03-17] MEDS: CALCIUM ACETATE 667 MG CAPSULE PO SCH ×2 (12:00→18:00)
[2017-03-17] MEDS: hydrALAZINE HCL 50 MG TABLET PO PRN ×2 (12:35→18:51)
[2017-03-17 15:59] VITALS: BP 172/99
[2017-03-17] MEDS: TIZANIDINE HCL 4 MG TABLET PO SCH (17:00)
[2017-03-17 20:56] VITALS: BP 197/112
[2017-03-18 00:51] VITALS: BP 183/104
[2017-03-18] MEDS: IV D5/ 0.9% NACL 1,000 ML IV PRN ×2 (00:58→18:11)
[2017-03-18] MEDS: hydrALAZINE HCL 50 MG TABLET PO PRN (01:33)
[2017-03-18 04:00] VITALS: BP 172/102
[2017-03-18] MEDS: HYDROMORPHONE 2 MG/1 ML DISP.SYRIN IV PRN ×3 (05:06→21:00)
[2017-03-18] MEDS: PANTOPRAZOLE SODIUM 40 MG TABLET.DR PO SCH (06:20)
[2017-03-18] MEDS: METOCLOPRAMIDE HCL 10 MG TABLET PO SCH ×3 (07:30→17:56)
[2017-03-18] MEDS: ONDANSETRON 4 MG/2 ML VIAL IV PRN ×2 (07:57→20:59)
[2017-03-18 07:59] LABS: BASOPHILS % (AUTO) 0.5 % (0.0-2.0); EOSINOPHILS # (AUTO) 0.1 K/uL (0.0-0.7); EOSINOPHILS % (AUTO) 2.7 % (0.0-7.0); HEMATOCRIT 28.6 % (36.7-47.1); HEMOGLOBIN 9.6 g/dL (12.5-16.3); LYMPHOCYTES # (AUTO) 1.3 K/uL (20.0-40.0); LYMPHOCYTES % (AUTO) 26.6 % (20.5-51.5); MEAN CORPUSCULAR HEMOGLOBIN 28.8 uug (23.8-33.4); MEAN CORPUSCULAR HGB CONC 34 g/dL (32.5-36.3); MEAN CORPUSCULAR VOLUME 85.9 fL (73.0-96.2); MONOCYTES # (AUTO) 0.4 K/uL (2.0-10.0); MONOCYTES % (AUTO) 8.5 % (0.0-11.0); NEUTROPHILS # (AUTO) 3.1 K/uL (1.8-8.9); NEUTROPHILS % (AUTO) 61.7 % (38.5-71.5); PLATELET COUNT (AUTO) 318 K/uL (152-348); RED BLOOD CELL COUNT(AUTO) 3.33 MIL/uL (4.06-5.63); WHITE BLOOD COUNT (AUTO) 5.1 K/uL (3.6-10.2)
[2017-03-18] MEDS: BENAZEPRIL HCL 20 MG TABLET PO SCH (08:09)
[2017-03-18] MEDS: AMLODIPINE 5 MG TABLET PO SCH ×2 (08:09→20:42)
[2017-03-18] MEDS: LABETALOL HCL 200 MG TABLET PO SCH ×2 (08:09→20:42)
[2017-03-18] MEDS: TIZANIDINE HCL 4 MG TABLET PO SCH ×2 (08:10→17:56)
[2017-03-18] MEDS: CALCIUM ACETATE 667 MG CAPSULE PO SCH ×3 (08:10→18:11)
[2017-03-18] MEDS: MINOXIDIL 2.5 MG TABLET PO SCH ×2 (08:10→20:42)
[2017-03-18] MEDS: FOLIC ACID/VITAMIN B COMP W-C TABLET PO SCH (08:10)
[2017-03-18 08:54] LABS: BILIRUBIN,TOTAL 1.2 mg/dL (0.2-1.0); MAGNESIUM 2.3 mg/dL (1.8-2.4); POTASSIUM 4.2 mmol/L (3.5-5.1); TOTAL PROTEIN, SERUM 8.9 g/dL (6.4-8.2)
[2017-03-18 09:13] LABS: CREATININE 12.6 mg/dL (0.6-1.3); PHOSPHOROUS 8.6 mg/dL (2.5-4.9)
[2017-03-18 11:00] VITALS: BP 109/59
[2017-03-18 15:00] VITALS: BP 129/79
[2017-03-18] MEDS ORDERED: NOVASOURCE RENAL 237 ML LIQUID PO SCH (17:00)
[2017-03-18] MEDS: NOVASOURCE RENAL 237 ML LIQUID PO SCH ×2 (18:37→18:38)
[2017-03-18 20:00] VITALS: BP 98/54
[2017-03-19 04:00] VITALS: BP 137/80
[2017-03-19] MEDS: PANTOPRAZOLE SODIUM 40 MG TABLET.DR PO SCH (06:08)
[2017-03-19] MEDS: IV D5/ 0.9% NACL 1,000 ML IV PRN ×2 (08:06→21:26)
[2017-03-19] MEDS: METOCLOPRAMIDE HCL 10 MG TABLET PO SCH ×3 (08:22→16:24)
[2017-03-19] MEDS: CALCIUM ACETATE 667 MG CAPSULE PO SCH ×3 (08:22→18:57)
[2017-03-19] MEDS: MINOXIDIL 2.5 MG TABLET PO SCH ×2 (08:23→20:58)
[2017-03-19] MEDS: BENAZEPRIL HCL 20 MG TABLET PO SCH (08:23)
[2017-03-19] MEDS: TIZANIDINE HCL 4 MG TABLET PO SCH ×2 (08:24→16:24)
[2017-03-19] MEDS: AMLODIPINE 5 MG TABLET PO SCH ×2 (08:24→20:58)
[2017-03-19] MEDS: LABETALOL HCL 200 MG TABLET PO SCH ×2 (08:25→20:58)
[2017-03-19] MEDS: FOLIC ACID/VITAMIN B COMP W-C TABLET PO SCH (08:25)
[2017-03-19] MEDS: HYDROMORPHONE 2 MG/1 ML DISP.SYRIN IV PRN ×3 (08:39→22:07)
[2017-03-19] MEDS: NOVASOURCE RENAL 237 ML LIQUID PO SCH ×2 (08:55→17:55)
[2017-03-19 11:15] VITALS: BP 145/84
[2017-03-19 15:48] VITALS: BP 118/67
[2017-03-19 20:00] VITALS: BP 106/56
[2017-03-19] MEDS: ONDANSETRON 4 MG/2 ML VIAL IV PRN (21:23)
[2017-03-20] MEDS: HYDROMORPHONE 2 MG/1 ML DISP.SYRIN IV PRN ×3 (04:12→22:55)
[2017-03-20] MEDS: ONDANSETRON 4 MG/2 ML VIAL IV PRN ×3 (04:18→22:59)
[2017-03-20 04:53] VITALS: BP 146/75
[2017-03-20] MEDS: PANTOPRAZOLE SODIUM 40 MG TABLET.DR PO SCH (06:05)
[2017-03-20] MEDS: CALCIUM ACETATE 667 MG CAPSULE PO SCH ×3 (08:24→17:19)
[2017-03-20] MEDS: LABETALOL HCL 200 MG TABLET PO SCH ×3 (08:25→22:22)
[2017-03-20] MEDS: BENAZEPRIL HCL 20 MG TABLET PO SCH (08:25)
[2017-03-20] MEDS: AMLODIPINE 5 MG TABLET PO SCH ×3 (08:25→22:21)
[2017-03-20] MEDS: MINOXIDIL 2.5 MG TABLET PO SCH ×3 (08:26→22:22)
[2017-03-20] MEDS: METOCLOPRAMIDE HCL 10 MG TABLET PO SCH ×3 (08:26→16:30)
[2017-03-20] MEDS: NOVASOURCE RENAL 237 ML LIQUID PO SCH ×2 (08:26→18:08)
[2017-03-20] MEDS: FOLIC ACID/VITAMIN B COMP W-C TABLET PO SCH (08:26)
[2017-03-20] MEDS: TIZANIDINE HCL 4 MG TABLET PO SCH ×2 (08:26→17:00)
[2017-03-20 11:40] VITALS: BP 88/50
[2017-03-20] MEDS: IV D5/ 0.9% NACL 1,000 ML IV PRN (12:41)
[2017-03-20 15:40] VITALS: BP 137/77
[2017-03-20] MEDS: LORAZEPAM 1 MG TABLET PO PRN (17:17)
[2017-03-20 20:00] VITALS: BP 136/83
[2017-03-21 04:00] VITALS: BP 135/78
[2017-03-21] MEDS: ONDANSETRON 4 MG/2 ML VIAL IV PRN ×3 (05:06→20:19)
[2017-03-21] MEDS: HYDROMORPHONE 2 MG/1 ML DISP.SYRIN IV PRN ×3 (05:06→20:10)
[2017-03-21] MEDS: PANTOPRAZOLE SODIUM 40 MG TABLET.DR PO SCH (05:10)
[2017-03-21] MEDS: CALCIUM ACETATE 667 MG CAPSULE PO SCH ×3 (08:25→17:29)
[2017-03-21] MEDS: METOCLOPRAMIDE HCL 10 MG TABLET PO SCH ×3 (08:26→17:29)
[2017-03-21] MEDS: LABETALOL HCL 200 MG TABLET PO SCH ×2 (08:26→21:00)
[2017-03-21] MEDS: MINOXIDIL 2.5 MG TABLET PO SCH ×2 (08:26→21:00)
[2017-03-21] MEDS: BENAZEPRIL HCL 20 MG TABLET PO SCH (08:26)
[2017-03-21] MEDS: AMLODIPINE 5 MG TABLET PO SCH ×2 (08:26→21:00)
[2017-03-21] MEDS: FOLIC ACID/VITAMIN B COMP W-C TABLET PO SCH (08:26)
[2017-03-21] MEDS: TIZANIDINE HCL 4 MG TABLET PO SCH ×2 (08:27→17:29)
[2017-03-21] MEDS: NOVASOURCE RENAL 237 ML LIQUID PO SCH ×2 (08:29→17:30)
[2017-03-21 11:52] VITALS: BP 92/45
[2017-03-21 13:19] VITALS: BP 116/65
[2017-03-21 13:54] LABS: BASOPHILS % (AUTO) 0.6 % (0.0-2.0); EOSINOPHILS # (AUTO) 0.1 K/uL (0.0-0.7); EOSINOPHILS % (AUTO) 3.5 % (0.0-7.0); HEMATOCRIT 28.3 % (36.7-47.1); HEMOGLOBIN 9.5 g/dL (12.5-16.3); LYMPHOCYTES # (AUTO) 1.1 K/uL (20.0-40.0); LYMPHOCYTES % (AUTO) 27.9 % (20.5-51.5); MEAN CORPUSCULAR HEMOGLOBIN 29.1 uug (23.8-33.4); MEAN CORPUSCULAR HGB CONC 34 g/dL (32.5-36.3); MEAN CORPUSCULAR VOLUME 86.6 fL (73.0-96.2); MONOCYTES # (AUTO) 0.4 K/uL (2.0-10.0); NEUTROPHILS # (AUTO) 2.3 K/uL (1.8-8.9); PLATELET COUNT (AUTO) 237 K/uL (152-348); RED BLOOD CELL COUNT(AUTO) 3.27 MIL/uL (4.06-5.63); WHITE BLOOD COUNT (AUTO) 3.9 K/uL (3.6-10.2)
[2017-03-21 14:16] LABS: BILIRUBIN,TOTAL 0.9 mg/dL (0.2-1.0); MAGNESIUM 2.1 mg/dL (1.8-2.4); POTASSIUM 5.2 mmol/L (3.5-5.1); TOTAL PROTEIN, SERUM 8.1 g/dL (6.4-8.2)
[2017-03-21 16:19] VITALS: BP 104/51
[2017-03-21 19:00] VITALS: BP 117/63
[2017-03-21] MEDS: LORAZEPAM 1 MG TABLET PO PRN (19:26)
[2017-03-22] MEDS: LORAZEPAM 1 MG TABLET PO PRN ×2 (00:57→20:11)
[2017-03-22] MEDS: HYDROMORPHONE 2 MG/1 ML DISP.SYRIN IV PRN ×3 (01:58→18:53)
[2017-03-22] MEDS: ONDANSETRON 4 MG/2 ML VIAL IV PRN ×2 (02:02→11:43)
[2017-03-22 04:00] VITALS: BP 111/64
[2017-03-22] MEDS: PANTOPRAZOLE SODIUM 40 MG TABLET.DR PO SCH (06:47)
[2017-03-22] MEDS: METOCLOPRAMIDE HCL 10 MG TABLET PO SCH ×3 (06:48→17:20)
[2017-03-22] MEDS: CALCIUM ACETATE 667 MG CAPSULE PO SCH ×3 (08:00→17:20)
[2017-03-22] MEDS: NOVASOURCE RENAL 237 ML LIQUID PO SCH ×2 (08:12→17:20)
[2017-03-22] MEDS: MINOXIDIL 2.5 MG TABLET PO SCH ×2 (09:00→20:12)
[2017-03-22] MEDS: TIZANIDINE HCL 4 MG TABLET PO SCH ×2 (09:00→17:20)
[2017-03-22] MEDS: BENAZEPRIL HCL 20 MG TABLET PO SCH (09:00)
[2017-03-22] MEDS: AMLODIPINE 5 MG TABLET PO SCH ×2 (09:00→20:12)
[2017-03-22] MEDS: LABETALOL HCL 200 MG TABLET PO SCH ×2 (09:00→20:12)
[2017-03-22] MEDS: FOLIC ACID/VITAMIN B COMP W-C TABLET PO SCH (09:00)
[2017-03-22 12:06] VITALS: BP 126/78
[2017-03-22 20:09] VITALS: BP 133/74
[2017-03-23] MEDS: ONDANSETRON 4 MG/2 ML VIAL IV PRN (01:15)
[2017-03-23] MEDS: HYDROMORPHONE 2 MG/1 ML DISP.SYRIN IV PRN ×2 (01:15→08:41)
[2017-03-23 05:03] VITALS: BP 125/74
[2017-03-23] MEDS: PANTOPRAZOLE SODIUM 40 MG TABLET.DR PO SCH ×2 (06:02→08:45)
[2017-03-23] MEDS: LABETALOL HCL 200 MG TABLET PO SCH (08:44)
[2017-03-23] MEDS: MINOXIDIL 2.5 MG TABLET PO SCH (08:44)
[2017-03-23] MEDS: CALCIUM ACETATE 667 MG CAPSULE PO SCH ×2 (08:44→12:27)
[2017-03-23] MEDS: FOLIC ACID/VITAMIN B COMP W-C TABLET PO SCH (08:44)
[2017-03-23] MEDS: TIZANIDINE HCL 4 MG TABLET PO SCH (08:44)
[2017-03-23 08:45] VITALS: BP 125/74
[2017-03-23] MEDS: BENAZEPRIL HCL 20 MG TABLET PO SCH (08:45)
[2017-03-23] MEDS: METOCLOPRAMIDE HCL 10 MG TABLET PO SCH ×2 (08:45→12:28)
[2017-03-23] MEDS: AMLODIPINE 5 MG TABLET PO SCH (08:45)
[2017-03-23] MEDS: NOVASOURCE RENAL 237 ML LIQUID PO SCH (08:46)
[2017-03-23] MEDS ORDERED: INFLUENZA VACCINE 2017-2018 0.5 ML DISP.SYRIN IM ONE (11:15)
== END 2017-03-23 12:35 | disposition home or self-care (01) | DRG 199 ==
LOC: ER 21:47 → TELE 23:47 → MED 03-18 17:41
PROVIDERS: ADMIT Internal Medicine; ATTEND Internal Medicine
PROC: 5A1D70Z Performance of Urinary Filtration, Intermittent, Less than 6 Hours Per Day (ICD-10-PCS; principal; 2017-03-17)
DX: I16.0 Hypertensive urgency (principal); N18.6 End stage renal disease; I13.11 Hypertensive heart and chronic kidney disease without heart failure, with stage 5 chronic kidney disease, or end stage renal disease; E87.79 Other fluid overload; G89.4 Chronic pain syndrome; Z91.15 Patient's noncompliance with renal dialysis; Z99.2 Dependence on renal dialysis; Z91.14 Patient's other noncompliance with medication regimen; K21.9 Gastro-esophageal reflux disease without esophagitis; F17.210 Nicotine dependence, cigarettes, uncomplicated; F12.90 Cannabis use, unspecified, uncomplicated; D64.9 Anemia, unspecified; Z79.899 Other long term (current) drug therapy; R11.2 Nausea with vomiting, unspecified; R10.9 Unspecified abdominal pain; R94.31 Abnormal electrocardiogram [ECG] [EKG]
CPT/HCPCS: 36415; 71045; 74150; 83690; 83735; 84100; 85025; 90686; 93005; A4663; J0360; J1170; J2405; J3490; J7040; J7042; J8597

== ENCOUNTER 2017-03-24 12:28 | Emergency (ER) | payer OTHER ==
[~2017-03-24] VITALS: Ht 170.2 cm; Wt 62.1 kg
[~2017-03-24 12:28] MED LIST changes: -BENA20TA2 PO; +BENA40TA2 PO; +LABE200T PO; -LABE200T8 PO; +METO-295 PO; -Metoclopramide Hcl PO; -PANT40TA2 PO; +PANT40TA4 PO; -TIZA4CAP PO; +TIZA4TAB4 PO
--- NOTE | 2017-03-24 14:01 | NUR ---
PATIENT WAS EVAL BY DR GOODWIN AT BEDSIDE ROOM 04A.
[2017-03-24] MEDS ORDERED: LORAZEPAM 0.5 MG TABLET PO ONE (14:15)
--- NOTE | 2017-03-24 14:23 | NUR ---
Patient discharged to home in stable conditon. Written and verbal after care instructions given. Patient verbalizes understanding of instructions.
[2017-03-24 14:24] VITALS: BP 155/100
[2017-03-24] MEDS ORDERED: LORAZEPAM 1 MG TABLET ONE (14:28)
== END 2017-03-24 14:25 | disposition home or self-care (01) ==
LOC: ER 12:29
DX: I13.2 Hypertensive heart and chronic kidney disease with heart failure and with stage 5 chronic kidney disease, or end stage renal disease (principal); I50.9 Heart failure, unspecified; N18.6 End stage renal disease; K21.9 Gastro-esophageal reflux disease without esophagitis; F17.200 Nicotine dependence, unspecified, uncomplicated; F41.9 Anxiety disorder, unspecified; Z99.2 Dependence on renal dialysis
CPT/HCPCS: 99284; A4663

== ENCOUNTER 2017-04-19 12:05 | Inpatient (IN) | payer OTHER ==
[~2017-04-19] VITALS: Ht 167.6 cm; Wt 62.1 kg
[2017-04-19] MEDS ORDERED: ONDANSETRON 4 MG/2 ML VIAL IV ONE (12:15)
[2017-04-19] MEDS ORDERED: CLONIDINE HCL 0.2 MG TABLET PO ONE (12:15)
[2017-04-19] MEDS ORDERED: CLONIDINE HCL 0.2 MG TABLET ONE (12:26)
[2017-04-19] MEDS ORDERED: ONDANSETRON 4 MG/2 ML VIAL ONE ×2 (12:26→15:04)
--- NOTE | 2017-04-19 12:30 | NUR ---
PT IS IN ROOM #2A. DR LOMAS EVALUATED THE PT.
[2017-04-19 12:35] LABS: BASOPHILS % (AUTO) 0.5 % (0.0-2.0); EOSINOPHILS # (AUTO) 0.1 K/uL (0.0-0.7); EOSINOPHILS % (AUTO) 2.3 % (0.0-7.0); HEMATOCRIT 30.8 % (36.7-47.1); HEMOGLOBIN 10.2 g/dL (12.5-16.3); LYMPHOCYTES # (AUTO) 1.2 K/uL (20.0-40.0); LYMPHOCYTES % (AUTO) 20.6 % (20.5-51.5); MEAN CORPUSCULAR HEMOGLOBIN 29.1 uug (23.8-33.4); MEAN CORPUSCULAR HGB CONC 33 g/dL (32.5-36.3); MEAN CORPUSCULAR VOLUME 87.8 fL (73.0-96.2); MONOCYTES # (AUTO) 0.5 K/uL (2.0-10.0); NEUTROPHILS # (AUTO) 4.1 K/uL (1.8-8.9); NEUTROPHILS % (AUTO) 68.6 % (38.5-71.5); PLATELET COUNT (AUTO) 242 K/uL (152-348); RED BLOOD CELL COUNT(AUTO) 3.51 MIL/uL (4.06-5.63)
[2017-04-19 12:40] LABS: POTASSIUM 4.9 mmol/L (3.5-5.1)
[2017-04-19 12:42] LABS: CREATININE 14.9 mg/dL (0.6-1.3)
[2017-04-19 12:52] LABS: BILIRUBIN,DIRECT 0.2 mg/dL (0.0-0.2); BILIRUBIN,TOTAL 1.1 mg/dL (0.2-1.0); TOTAL PROTEIN, SERUM 9.2 g/dL (6.4-8.2)
[2017-04-19] MEDS ORDERED: HYDROMORPHONE 1 MG/1 ML DISP.SYRIN IV ONE (13:00)
[2017-04-19] MEDS ORDERED: HYDROMORPHONE 2 MG/1 ML DISP.SYRIN ONE (13:05)
[2017-04-19] MEDS ORDERED: hydrALAZINE HCL 20 MG/1 ML VIAL IV ONE (14:00)
[2017-04-19] MEDS ORDERED: hydrALAZINE HCL 20 MG/1 ML VIAL ONE (14:04)
[2017-04-19] MEDS ORDERED: LABETALOL HCL 100 MG/20 ML VIAL ONE (14:57)
[2017-04-19] MEDS ORDERED: LORAZEPAM 2 MG/1 ML VIAL ONE (14:57)
[2017-04-19] MEDS ORDERED: LORAZEPAM 2 MG/1 ML VIAL IV ONE (15:00)
[2017-04-19] MEDS ORDERED: LABETALOL HCL 100 MG/20 ML VIAL IV ONE (15:00)
[2017-04-19] MEDS ORDERED: ONDANSETRON 4 MG/2 ML VIAL IV STA (15:11)
--- NOTE | 2017-04-19 15:29 | NUR ---
SBAR report given to Johanna RN via telephone, pt trans to tele floor rm [id number].
--- NOTE | 2017-04-19 15:40 | NUR ---
RECEIVED PATIENT 47 YEARS OLD MALE FROM ED WITH DX OF HYPERTENSIVE URGENCY BY W/CHAIR PLACED INTO BED FIXED AND MADE COMFORTABLE PATIENT IS ALERT AND ORIENTED RESPONDS TO QUESTIONS BUT IS VERY GRUGGY HEPLOCK RIGHT ARM IS INTACT FLUSHED PER PROTOCOL LEFT ARM AV SHUNT IS INTACT WITH BRUIT AND THRILL.DR RICHARDSON AWARE THAT PATIENT IS HERE WITH ORDERS AND NOTED BLOOD PRESSURE IS 192/120 PATIENT IS FOR DIALYSIS THIS EVENING AND THE SOLID TIRE TUBER MACHINE OPERATOR STATED NOT TO GIVE ANTIHYPERTENSIVE MEDICATIONS BECAUSE HE IS ON HIS WAY TONITE TO DO DIALYSIS ON THE PATIENT.
[2017-04-19 15:55] VITALS: BP 192/120
--- NOTE | 2017-04-19 17:10 | NUR ---
TRUCK SPOTTER HERE AND STARTED DIALYSIS ORDERED AND WILL OBSERVE.
[2017-04-19] MEDS ORDERED: AMLODIPINE 10 MG TABLET PO SCH (17:30)
[2017-04-19] MEDS ORDERED: diphenhydrAMINE 50 MG/1 ML VIAL IV PRN (17:30)
--- NOTE | 2017-04-19 18:50 | NUR ---
DIALYSIS REMAIN IN PROGRESS AT THIS TIME.
--- NOTE | 2017-04-19 19:25 | NUR ---
RECEIVED PT LYING IN BED. AXO X4. DIALYSIS IN PROGRESS. LEFT AV SHUNT. RIGHT FOREARM IV SITE INTACT. SAFETY INITIATED. CALL LIGHT WITHIN REACH. WILL CONTINUE TO MONITOR.
--- NOTE | 2017-04-19 19:26 | NUR ---
DIALYSIS COMPLETED AND 3000 ML REMOVED ENDORSED TO ONCOMING SHIFT.
--- NOTE | 2017-04-19 19:40 | NUR ---
DIALYSIS DONE WITH 3L OUTPUT. BP 186/102. PT COMPLAINED OF GENERALIZED PAIN 10/. WILL GIVE DILAUDID PER ORDER. PT REPORTED HAVING BM AND URINATED X1 TODAY. BRP. SINUS RHYTHM ON TELE. DENIES ANY SOB. GAVE PT EXTRA BLANKET PER REQUEST. SAFETY INITIATED, CALL LIGHT WITHIN REACHED.
[2017-04-19 20:00] VITALS: BP 186/102
[2017-04-19] MEDS: HYDROMORPHONE 2 MG/1 ML DISP.SYRIN IV PRN (20:01)
[2017-04-19] MEDS: AMLODIPINE 5 MG TABLET PO SCH (20:39)
[2017-04-19] MEDS: MINOXIDIL 2.5 MG TABLET PO SCH (20:39)
[2017-04-19] MEDS: LABETALOL HCL 200 MG TABLET PO SCH (20:39)
--- NOTE | 2017-04-19 22:15 | NUR ---
MD MADE AWARE OF HIGH BP 186/110 TELE SR AT 89. NEW ORDERS FOR CATAPRES 0.1 MG. PATIENT WAS DIALYZED TODAY 3L OUTPUT. WILL CONTINUE TO MONITOR.
[2017-04-19] MEDS: CLONIDINE HCL 0.1 MG TABLET PO PRN (22:39)
--- NOTE | 2017-04-19 22:40 | NUR ---
Catapres 0.1 mg given. Will continue to monitor.
[2017-04-20] VITALS: BP 156/89
--- NOTE | 2017-04-20 00:12 | NUR ---
re-checked b/p 156/89 HR 89. Will continue to monitor.
[2017-04-20] MEDS: HYDROMORPHONE 2 MG/1 ML DISP.SYRIN IV PRN ×3 (02:20→23:45)
[2017-04-20] MEDS: ONDANSETRON 4 MG/2 ML VIAL IV PRN ×3 (02:47→23:44)
[2017-04-20] MEDS: CLONIDINE HCL 0.1 MG TABLET PO PRN (03:41)
--- NOTE | 2017-04-20 03:41 | NUR ---
B/P STILL ELEVATED 189/106, TELE SR AT HR 89. GAVE PRN CATAPRES 0.1 PO. WILL CONTINUE TO MONITOR.
[2017-04-20 04:00] VITALS: BP 167/98
--- NOTE | 2017-04-20 04:56 | NUR ---
RE-CHECK BP 154/97 HR 90. WILL CONTINUE TO MONITOR.
--- NOTE | 2017-04-20 05:30 | NUR ---
PATIENT AXO X4. WITH GENERALIZED PAIN AND GIVEN DILAUDID PRN PER ORDER AND EFFECTIVE. DENIES ANY SOB. CLOSELY MONITORED BP THROUGH OUT THE NIGHT. CLONIDINE GIVEN PRN. LATEST BP 156/97. SINUS RHTYM 89 ON TELE. NO ANXIETY NOTED. EMESIS X1, ZOFRAN GIVEN AND EFFECTIVE. SLEEP WELL AT NIGHT. BRP. NO FALLS REPORTED.
[2017-04-20 06:21] LABS: BASOPHILS % (AUTO) 0.5 % (0.0-2.0); EOSINOPHILS # (AUTO) 0.1 K/uL (0.0-0.7); EOSINOPHILS % (AUTO) 2.4 % (0.0-7.0); HEMOGLOBIN 10.4 g/dL (12.5-16.3); LYMPHOCYTES # (AUTO) 0.8 K/uL (20.0-40.0); LYMPHOCYTES % (AUTO) 21.9 % (20.5-51.5); MEAN CORPUSCULAR HEMOGLOBIN 29.4 uug (23.8-33.4); MEAN CORPUSCULAR HGB CONC 34 g/dL (32.5-36.3); MEAN CORPUSCULAR VOLUME 87.7 fL (73.0-96.2); MONOCYTES # (AUTO) 0.3 K/uL (2.0-10.0); MONOCYTES % (AUTO) 8.7 % (0.0-11.0); NEUTROPHILS # (AUTO) 2.5 K/uL (1.8-8.9); NEUTROPHILS % (AUTO) 66.5 % (38.5-71.5); PLATELET COUNT (AUTO) 245 K/uL (152-348); RED BLOOD CELL COUNT(AUTO) 3.54 MIL/uL (4.06-5.63); WHITE BLOOD COUNT (AUTO) 3.8 K/uL (3.6-10.2)
[2017-04-20] MEDS: METOCLOPRAMIDE HCL 10 MG TABLET PO SCH ×3 (06:32→16:48)
[2017-04-20 06:40] LABS: MAGNESIUM 2.3 mg/dL (1.8-2.4); POTASSIUM 4.8 mmol/L (3.5-5.1)
[2017-04-20 06:42] LABS: PHOSPHOROUS 8.1 mg/dL (2.5-4.9)
--- NOTE | 2017-04-20 07:30 | NUR ---
RECEIVED PATIENT ASLEEP AT THIS TIME BUT AROUSES EASILY ON ROUNDS PATIENT IS COMFORTABLE ON ROOM AIR WITH AV SHUNT INTACT TO HIS LEFT ARM NO S/S OF NAUSEA OR VOMITING AT THIS TIME WILL CONTINUE TO OBSERVE.
[2017-04-20] MEDS ORDERED: PANTOPRAZOLE SODIUM 40 MG TABLET.DR PO SCH (09:00)
[2017-04-20] MEDS: FOLIC ACID/VITAMIN B COMP W-C TABLET PO SCH (09:06)
[2017-04-20] MEDS: CALCIUM ACETATE 667 MG CAPSULE PO SCH ×4 (09:07→17:00)
[2017-04-20] MEDS: MINOXIDIL 2.5 MG TABLET PO SCH ×2 (09:08→20:26)
[2017-04-20] MEDS: BENAZEPRIL HCL 20 MG TABLET PO SCH (09:08)
[2017-04-20] MEDS: LABETALOL HCL 200 MG TABLET PO SCH ×2 (09:08→20:27)
[2017-04-20] MEDS: AMLODIPINE 5 MG TABLET PO SCH ×2 (09:09→20:26)
[2017-04-20] MEDS: TIZANIDINE HCL 4 MG TABLET PO SCH ×2 (09:09→16:48)
--- NOTE | 2017-04-20 09:39 | NUR ---
PATIENT SEEN AND EXAMINED BY DR ALVARES WITH NEW ORDERS AND NOTED PATIENT IS FOR DIALYSIS TODAY.
[2017-04-20] MEDS ORDERED: EPOETIN ALFA 10,000 UNITS/ML VIAL IV PRN (10:22)
[2017-04-20 11:15] VITALS: BP 170/104
[2017-04-20 15:09] VITALS: BP 155/95
--- NOTE | 2017-04-20 15:30 | NUR ---
PATIENT REQUESTED FOR ATIVAN STATED THAT HE FEELS ANXIOUS CALLED DR ALVARES AND LEFT A MESSAGE WITH AIDA SILVESTRE NOT AVAILABLE AT THIS TIME WILL RETURN CALL
--- NOTE | 2017-04-20 16:31 | NUR ---
DR ALVARES RETURNED CALL WITH NEW ORDERS AND NOTED.
[2017-04-20] MEDS: LORAZEPAM 1 MG TABLET PO PRN (16:48)
--- NOTE | 2017-04-20 16:48 | NUR ---
PATIENT MEDICATED WITH ATIVAN ORDERED AND MADE COMFORTABLE.
--- NOTE | 2017-04-20 19:25 | NUR ---
RECEIVED PT LYING IN BED. JORGEO X4. STATED HE FEEL FINE AT THIS TIME. DENIES ANY PAIN OR SOB. IV SITE INTACT TO RIGHT FOREARM. IV INFUSING. SINUS RHYTHM ON TELE. LATEST BP 147/90. SAFETY MEASURE INITIATED. CALL LIGHT WITHIN REACH. Addendum: 04/20/17 at 2024 by JOANNA PATEL RN NO IV INFUSING.
[2017-04-20 20:26] VITALS: BP 147/90
[2017-04-20 23:49] VITALS: BP 134/81
--- NOTE | 2017-04-21 01:00 | NUR ---
DRESSING CHANGE TO RIGHT FOREARM IV SITE. COVERED WITH TEGADERM. IV FLUSH WITH NS, INTACT AND PATENT.
[2017-04-21] MEDS: LORAZEPAM 1 MG TABLET PO PRN ×2 (01:09→18:47)
[2017-04-21 04:00] VITALS: BP 138/80
--- NOTE | 2017-04-21 06:00 | NUR ---
Patient alert and oriented x4. Denies any SOB. Lung sound CTA. O2 sat at 96% on RA. Ativan prn given for insomnia and effective. Zofran prn for nausea given and effective. Right FA heplock intact and patent. Latest BP-138/80. Sinus rhythm on Tele 82/min. Safety and comfort measure maintained throughout shift.
[2017-04-21] MEDS: METOCLOPRAMIDE HCL 10 MG TABLET PO SCH ×3 (06:30→16:54)
[2017-04-21] MEDS: PANTOPRAZOLE SODIUM 40 MG TABLET.DR PO SCH (06:30)
[2017-04-21 07:55] LABS: BASOPHILS # (AUTO) 0.1 K/uL (0.0-8.0); BASOPHILS % (AUTO) 1.2 % (0.0-2.0); EOSINOPHILS # (AUTO) 0.2 K/uL (0.0-0.7); EOSINOPHILS % (AUTO) 3.6 % (0.0-7.0); HEMATOCRIT 32.4 % (36.7-47.1); HEMOGLOBIN 10.8 g/dL (12.5-16.3); LYMPHOCYTES # (AUTO) 1.5 K/uL (20.0-40.0); LYMPHOCYTES % (AUTO) 35.1 % (20.5-51.5); MEAN CORPUSCULAR HEMOGLOBIN 29.1 uug (23.8-33.4); MEAN CORPUSCULAR HGB CONC 33 g/dL (32.5-36.3); MEAN CORPUSCULAR VOLUME 87.8 fL (73.0-96.2); MONOCYTES # (AUTO) 0.4 K/uL (2.0-10.0); MONOCYTES % (AUTO) 10.5 % (0.0-11.0); NEUTROPHILS # (AUTO) 2.1 K/uL (1.8-8.9); NEUTROPHILS % (AUTO) 49.6 % (38.5-71.5); PLATELET COUNT (AUTO) 246 K/uL (152-348); RED BLOOD CELL COUNT(AUTO) 3.69 MIL/uL (4.06-5.63); WHITE BLOOD COUNT (AUTO) 4.2 K/uL (3.6-10.2)
--- NOTE | 2017-04-21 08:15 | NUR ---
AWAKE ALERT AND ORIENTED DENIES PAIN OR DISCOMFORTS AT THIS TIME.EATING HIS BREAKFAST WITH GOOD APPETITE.AV SHUNT LEFT ARM REMAINS PATENT WITH BRUIT AND THRILL PATIENT IS FOR DIALYSIS TODAY AND AWARE MADE COMFORTABLE AND WILL CONTINUE TO OBSERVE.
[2017-04-21 08:20] LABS: MAGNESIUM 2.4 mg/dL (1.8-2.4); POTASSIUM 4.6 mmol/L (3.5-5.1); TOTAL PROTEIN, SERUM 8.3 g/dL (6.4-8.2)
[2017-04-21 08:26] LABS: CREATININE 14.6 mg/dL (0.6-1.3)
[2017-04-21 08:27] LABS: PHOSPHOROUS 9.6 mg/dL (2.5-4.9)
--- NOTE | 2017-04-21 08:30 | NUR ---
RECEIVED REPORT FROM LAB BUN IS 99, CR [id number], PHOS IS 9.[address] ALVARES WITH NO NEW ORDERS AT THIS TIME STATED THAT PATIENT WILL HAVE DIALYSIS TODAY.
[2017-04-21] MEDS: BENAZEPRIL HCL 20 MG TABLET PO SCH (08:54)
[2017-04-21] MEDS: TIZANIDINE HCL 4 MG TABLET PO SCH ×2 (08:54→16:54)
[2017-04-21] MEDS: CALCIUM ACETATE 667 MG CAPSULE PO SCH ×3 (08:54→16:54)
[2017-04-21] MEDS: MINOXIDIL 2.5 MG TABLET PO SCH ×3 (08:54→21:50)
[2017-04-21] MEDS: FOLIC ACID/VITAMIN B COMP W-C TABLET PO SCH (08:54)
[2017-04-21] MEDS: AMLODIPINE 5 MG TABLET PO SCH ×3 (08:55→21:50)
[2017-04-21] MEDS: LABETALOL HCL 200 MG TABLET PO SCH ×3 (08:55→21:50)
[2017-04-21] MEDS: ONDANSETRON 4 MG/2 ML VIAL IV PRN ×2 (10:48→18:01)
[2017-04-21] MEDS: HYDROMORPHONE 2 MG/1 ML DISP.SYRIN IV PRN ×2 (10:49→20:31)
--- NOTE | 2017-04-21 10:52 | NUR ---
PATIENT MEDICATED WITH ZOFRAN AND DILAUDID ORDERED FOR NAUSEA AND PAIN AND WILL CONTINUE TO OBSERVE.
[2017-04-21 11:12] VITALS: BP 128/72
--- NOTE | 2017-04-21 12:16 | NUR ---
PATIENT SEEN AND EXAMINED BY DR ALVARES WITH NEW ORDERS AND NOTED
[2017-04-21 15:03] VITALS: BP 107/56
--- NOTE | 2017-04-21 17:03 | NUR ---
DIALYSIS STARTED AND REMAIN IN PROGRESS AT THIS TIME.
--- NOTE | 2017-04-21 18:25 | NUR ---
DIALYSIS COMPLETED AND 2500 ML REMOVED AND PATIENT TOLERATED THIS PROCEDURE LATEST BLOOD PRESSURE IS 114/68 HR IS 78
--- NOTE | 2017-04-21 18:47 | NUR ---
PATIENT STATED THAT HE FEELS ANXIOUS REQUESTED FOR ATIVAN MEDICATED ORDERED REASSURED AND MADE COMFORTABLE AND WILL CONTINUE TO OBSERVE.
--- NOTE | 2017-04-21 19:30 | NUR ---
nsg: pt received asleep, arousable. no acute distress noted. on RA. denies discomfort at this time. left forearm with av shunt. ambulatory. call light within reach.
[2017-04-21 20:00] VITALS: BP 103/52
[2017-04-21 21:15] VITALS: BP 128/77
--- NOTE | 2017-04-21 21:45 | NUR ---
NSG: pt refused all bp meds with bp of 128/77. pt informed regarding risk of increased bp. verbalized understanding but still refused bp meds.
[2017-04-22] MEDS: ONDANSETRON 4 MG/2 ML VIAL IV PRN (02:34)
[2017-04-22] MEDS: HYDROMORPHONE 2 MG/1 ML DISP.SYRIN IV PRN ×2 (02:35→08:55)
[2017-04-22 04:00] VITALS: BP 134/81
--- NOTE | 2017-04-22 05:22 | NUR ---
nsg: all needs attended. no acute distress noted. v/s stable. received a total of 2 doses of dilaudid for this shift due to generalized pain. denies discomfort at this time. cont to monitor.
[2017-04-22 06:44] LABS: BASOPHILS % (AUTO) 0.2 % (0.0-2.0); EOSINOPHILS # (AUTO) 0.1 K/uL (0.0-0.7); EOSINOPHILS % (AUTO) 2.1 % (0.0-7.0); HEMOGLOBIN 10.3 g/dL (12.5-16.3); LYMPHOCYTES # (AUTO) 1.2 K/uL (20.0-40.0); LYMPHOCYTES % (AUTO) 28.6 % (20.5-51.5); MEAN CORPUSCULAR HEMOGLOBIN 29.3 uug (23.8-33.4); MEAN CORPUSCULAR HGB CONC 33 g/dL (32.5-36.3); MEAN CORPUSCULAR VOLUME 88.5 fL (73.0-96.2); MONOCYTES # (AUTO) 0.4 K/uL (2.0-10.0); MONOCYTES % (AUTO) 10.6 % (0.0-11.0); NEUTROPHILS # (AUTO) 2.4 K/uL (1.8-8.9); NEUTROPHILS % (AUTO) 58.5 % (38.5-71.5); PLATELET COUNT (AUTO) 220 K/uL (152-348); RED BLOOD CELL COUNT(AUTO) 3.51 MIL/uL (4.06-5.63); WHITE BLOOD COUNT (AUTO) 4.2 K/uL (3.6-10.2)
--- NOTE | 2017-04-22 06:56 | NUR ---
nsg: pt refused to take protonix and reglan at this time. per pt will take med later. still wants to sleep.
[2017-04-22 07:17] LABS: BILIRUBIN,TOTAL 0.8 mg/dL (0.2-1.0); MAGNESIUM 2.3 mg/dL (1.8-2.4); PHOSPHOROUS 6.9 mg/dL (2.5-4.9); POTASSIUM 5.1 mmol/L (3.5-5.1); TOTAL PROTEIN, SERUM 8.7 g/dL (6.4-8.2)
[2017-04-22] MEDS ORDERED: PARO10TA26 PO (07:18)
--- NOTE | 2017-04-22 07:30 | NUR ---
RECEIVED PATIENT ON BED ASLEEP, A AND O X 4. NO ACUTE DISTRESS NOTED. AMBULATORY, INDEPENDENT WITH ADLS. WITH HEPLOCK ON THE RFA #20 INTACT AND PATENT. NO S/S OF INFILTRATION NOTED. AV SHUNT ON THE LEFT ARM. LEFT ARM PRECAUTION OBSERVED AT ALL TIMES. REGLAN AND PROTONIX ENDORSED TO BE GIVEN WITH AM MEDS PER PT REQUEST. ALL COMFORT MEASURES PROVIDED. WILL CONT TO MONITOR CLOSELY.
[2017-04-22 08:02] LABS: CREATININE 10.9 mg/dL (0.6-1.3)
[2017-04-22] MEDS: METOCLOPRAMIDE HCL 10 MG TABLET PO SCH ×2 (08:43→11:13)
[2017-04-22] MEDS: FOLIC ACID/VITAMIN B COMP W-C TABLET PO SCH (08:44)
[2017-04-22] MEDS: MINOXIDIL 2.5 MG TABLET PO SCH (08:44)
[2017-04-22] MEDS: CALCIUM ACETATE 667 MG CAPSULE PO SCH ×2 (08:44→11:59)
[2017-04-22] MEDS: LABETALOL HCL 200 MG TABLET PO SCH (08:45)
[2017-04-22] MEDS: AMLODIPINE 5 MG TABLET PO SCH (08:45)
[2017-04-22] MEDS: TIZANIDINE HCL 4 MG TABLET PO SCH (08:45)
[2017-04-22] MEDS: BENAZEPRIL HCL 20 MG TABLET PO SCH (08:45)
[2017-04-22] MEDS: PANTOPRAZOLE SODIUM 40 MG TABLET.DR PO SCH (08:45)
[2017-04-22] MEDS ORDERED: PAROXETINE HCL 10 MG TABLET PO SCH (09:00)
[2017-04-22 09:07] LABS: ALBUMIN 3.9 g/dL (2.9-4.4); ALPHA-1-GLOBULIN 0.2 g/dL (0.0-0.4); ALPHA-2-GLOBULIN 0.6 g/dL (0.4-1.0); BETA GLOBULIN 0.8 g/dL (0.7-1.3); GAMMA GLOBULIN 2.5 g/dL (0.4-1.8); GLOBULIN, TOTAL 4.1 (2.2-3.9); M-SPIKE 2.3 g/dL (Not Observed)
[2017-04-22 11:24] VITALS: BP 113/50
--- NOTE | 2017-04-22 12:15 | NUR ---
PATIENT DISCHARGED IN STABLE CONDITION. DISCHARGE INSTRUCTIONS AND PAPERS EXPLAINED AND GIVEN TO PATIENT AND VERBALIZED UNDERSTANDING WITH HEALTH EDUCATION. ACCOMPANIED PATIENT OUT OF HOSPITAL PREMISES, PER PATIENT HE WILL TAKE A BUS HOME.
== END 2017-04-22 12:12 | disposition home or self-care (01) | DRG 199 ==
LOC: ER 12:05 → TELE 14:51 → MED 04-21 16:02
PROVIDERS: ADMIT Internal Medicine; ATTEND Internal Medicine
PROC: 5A1D70Z Performance of Urinary Filtration, Intermittent, Less than 6 Hours Per Day (ICD-10-PCS; principal; 2017-04-19)
DX: I16.0 Hypertensive urgency (principal); I21.A1 Myocardial infarction type 2; I50.33 Acute on chronic diastolic (congestive) heart failure; F32.2 Major depressive disorder, single episode, severe without psychotic features; I13.2 Hypertensive heart and chronic kidney disease with heart failure and with stage 5 chronic kidney disease, or end stage renal disease; N18.6 End stage renal disease; Z99.2 Dependence on renal dialysis; Z91.15 Patient's noncompliance with renal dialysis; K21.9 Gastro-esophageal reflux disease without esophagitis; Z87.01 Personal history of pneumonia (recurrent); R11.2 Nausea with vomiting, unspecified; F41.9 Anxiety disorder, unspecified; G47.00 Insomnia, unspecified; Z79.899 Other long term (current) drug therapy; Z91.19 Patient's noncompliance with other medical treatment and regimen; F12.90 Cannabis use, unspecified, uncomplicated; F17.200 Nicotine dependence, unspecified, uncomplicated; D64.9 Anemia, unspecified
CPT/HCPCS: 36415; 70030-TC; 71045; 83735; 84100; 84155; 84165; 85025; 85730; 90937; 93005; A4663; J0360; J0885; J1170; J2060; J2405; J3490; J8597

== ENCOUNTER 2017-04-28 18:06 | Inpatient (IN) | payer OTHER ==
[~2017-04-28] VITALS: Ht 170.2 cm; Wt 61.2 kg
[~2017-04-28 18:06] MED LIST changes: +PARO10TA26 PO
[2017-04-28] MEDS ORDERED: IV NORMAL SALINE 1000 ML BAG IV ONE (19:00)
[2017-04-28] MEDS ORDERED: HYDROMORPHONE 1 MG/1 ML DISP.SYRIN IV ONE (19:00)
[2017-04-28] MEDS ORDERED: LABETALOL HCL 100 MG/20 ML VIAL IV ONE ×3 (19:00→20:45)
[2017-04-28] MEDS ORDERED: ONDANSETRON 4 MG/2 ML VIAL IV ONE (19:00)
[2017-04-28] MEDS ORDERED: LABETALOL HCL 100 MG/20 ML VIAL ONE ×2 (19:03→19:51)
[2017-04-28] MEDS ORDERED: ONDANSETRON 4 MG/2 ML VIAL ONE (19:03)
[2017-04-28] MEDS ORDERED: HYDROMORPHONE 2 MG/1 ML DISP.SYRIN ONE (19:03)
[2017-04-28 19:12] LABS: BASOPHILS % (AUTO) 0.6 % (0.0-2.0); EOSINOPHILS # (AUTO) 0.1 K/uL (0.0-0.7); EOSINOPHILS % (AUTO) 3.5 % (0.0-7.0); HEMATOCRIT 33.2 % (36.7-47.1); HEMOGLOBIN 11.2 g/dL (12.5-16.3); LYMPHOCYTES # (AUTO) 0.8 K/uL (20.0-40.0); LYMPHOCYTES % (AUTO) 19.7 % (20.5-51.5); MEAN CORPUSCULAR HEMOGLOBIN 29.7 uug (23.8-33.4); MEAN CORPUSCULAR HGB CONC 34 g/dL (32.5-36.3); MEAN CORPUSCULAR VOLUME 87.7 fL (73.0-96.2); MONOCYTES # (AUTO) 0.4 K/uL (2.0-10.0); MONOCYTES % (AUTO) 10.5 % (0.0-11.0); NEUTROPHILS # (AUTO) 2.8 K/uL (1.8-8.9); NEUTROPHILS % (AUTO) 65.7 % (38.5-71.5); PLATELET COUNT (AUTO) 291 K/uL (152-348); RED BLOOD CELL COUNT(AUTO) 3.79 MIL/uL (4.06-5.63); WHITE BLOOD COUNT (AUTO) 4.2 K/uL (3.6-10.2)
[2017-04-28 19:26] LABS: BILIRUBIN,DIRECT 0.2 mg/dL (0.0-0.2); BILIRUBIN,TOTAL 0.8 mg/dL (0.2-1.0); TOTAL PROTEIN, SERUM 10.1 g/dL (6.4-8.2)
[2017-04-28] MEDS ORDERED: hydrALAZINE HCL 20 MG/1 ML VIAL IV ONE (20:00)
[2017-04-28] MEDS ORDERED: hydrALAZINE HCL 20 MG/1 ML VIAL ONE (20:29)
[2017-04-28] MEDS ORDERED: diphenhydrAMINE 50 MG/1 ML VIAL IV PRN (21:45)
[2017-04-28 22:06] VITALS: BP 160/97
[2017-04-28] MEDS: ONDANSETRON 4 MG/2 ML VIAL IV PRN (22:44)
[2017-04-28] MEDS: HYDROMORPHONE 2 MG/1 ML DISP.SYRIN IV PRN (22:44)
[2017-04-29] VITALS (7 sets, daily range): BP systolic 156–227; BP diastolic 88–168
[2017-04-29] MEDS: CLONIDINE HCL 0.1 MG TABLET PO PRN ×2 (05:50→15:11)
[2017-04-29] MEDS: HYDROMORPHONE 2 MG/1 ML DISP.SYRIN IV PRN ×2 (05:50→20:27)
[2017-04-29] MEDS: ONDANSETRON 4 MG/2 ML VIAL IV PRN ×2 (05:50→20:27)
[2017-04-29 06:44] LABS: BASOPHILS % (AUTO) 0.2 % (0.0-2.0); EOSINOPHILS # (AUTO) 0.1 K/uL (0.0-0.7); EOSINOPHILS % (AUTO) 2.2 % (0.0-7.0); HEMATOCRIT 35.1 % (36.7-47.1); HEMOGLOBIN 11.4 g/dL (12.5-16.3); LYMPHOCYTES # (AUTO) 2.2 K/uL (20.0-40.0); LYMPHOCYTES % (AUTO) 35.1 % (20.5-51.5); MEAN CORPUSCULAR HGB CONC 33 g/dL (32.5-36.3); MEAN CORPUSCULAR VOLUME 89.1 fL (73.0-96.2); MONOCYTES # (AUTO) 0.5 K/uL (2.0-10.0); MONOCYTES % (AUTO) 8.4 % (0.0-11.0); NEUTROPHILS # (AUTO) 3.4 K/uL (1.8-8.9); NEUTROPHILS % (AUTO) 54.1 % (38.5-71.5); PLATELET COUNT (AUTO) 326 K/uL (152-348); RED BLOOD CELL COUNT(AUTO) 3.94 MIL/uL (4.06-5.63); WHITE BLOOD COUNT (AUTO) 6.2 K/uL (3.6-10.2)
[2017-04-29 06:48] LABS: POTASSIUM 4.5 mmol/L (3.5-5.1)
[2017-04-29 06:53] LABS: CREATININE 8.4 mg/dL (0.6-1.3)
[2017-04-29] MEDS: CALCIUM ACETATE 667 MG CAPSULE PO SCH ×4 (09:15→17:00)
[2017-04-29] MEDS: LABETALOL HCL 200 MG TABLET PO SCH ×2 (09:26→20:31)
[2017-04-29] MEDS: AMLODIPINE 10 MG TABLET PO SCH ×2 (09:27→17:00)
[2017-04-29] MEDS: FOLIC ACID/VITAMIN B COMP W-C TABLET PO SCH (09:27)
[2017-04-29] MEDS: MINOXIDIL 2.5 MG TABLET PO SCH ×2 (09:27→20:31)
[2017-04-29] MEDS: BENAZEPRIL HCL 20 MG TABLET PO SCH (09:29)
[2017-04-29] MEDS ORDERED: NITROGLYCERIN OINT 1 GM PACKET TP PRN (09:30)
[2017-04-29] MEDS: TIZANIDINE HCL 4 MG TABLET PO SCH ×2 (09:31→17:00)
[2017-04-29] MEDS: PAROXETINE HCL 10 MG TABLET PO SCH (09:34)
[2017-04-29] MEDS: METOCLOPRAMIDE HCL 10 MG TABLET PO SCH ×2 (11:30→16:30)
[2017-04-30 00:10] VITALS: BP 141/76
[2017-04-30] MEDS: HYDROMORPHONE 2 MG/1 ML DISP.SYRIN IV PRN ×3 (03:03→20:50)
[2017-04-30] MEDS: ONDANSETRON 4 MG/2 ML VIAL IV PRN ×3 (03:04→20:53)
[2017-04-30 04:22] VITALS: BP 152/90
[2017-04-30] MEDS ORDERED: LIDOCAINE HCL 2% 20 ML VIAL MC ONE (07:16)
[2017-04-30] MEDS ORDERED: IV NORMAL SALINE 1000 ML BAG IV ONE (07:16)
[2017-04-30] MEDS ORDERED: PROPOFOL 200 MG/20 ML BOTTLE IV ONE (07:16)
[2017-04-30] MEDS: METOCLOPRAMIDE HCL 10 MG TABLET PO SCH ×3 (07:30→16:14)
[2017-04-30 07:34] LABS: BASOPHILS % (AUTO) 0.4 % (0.0-2.0); EOSINOPHILS # (AUTO) 0.1 K/uL (0.0-0.7); EOSINOPHILS % (AUTO) 3.6 % (0.0-7.0); HEMATOCRIT 33.1 % (36.7-47.1); HEMOGLOBIN 10.8 g/dL (12.5-16.3); LYMPHOCYTES # (AUTO) 1.4 K/uL (20.0-40.0); MEAN CORPUSCULAR HEMOGLOBIN 28.9 uug (23.8-33.4); MEAN CORPUSCULAR HGB CONC 33 g/dL (32.5-36.3); MEAN CORPUSCULAR VOLUME 88.6 fL (73.0-96.2); MONOCYTES # (AUTO) 0.5 K/uL (2.0-10.0); MONOCYTES % (AUTO) 12.3 % (0.0-11.0); NEUTROPHILS % (AUTO) 49.7 % (38.5-71.5); PLATELET COUNT (AUTO) 295 K/uL (152-348); RED BLOOD CELL COUNT(AUTO) 3.74 MIL/uL (4.06-5.63); WHITE BLOOD COUNT (AUTO) 4.1 K/uL (3.6-10.2)
[2017-04-30 07:39] LABS: BILIRUBIN,TOTAL 1.2 mg/dL (0.2-1.0); MAGNESIUM 2.4 mg/dL (1.8-2.4); PHOSPHOROUS 7.4 mg/dL (2.5-4.9); POTASSIUM 4.1 mmol/L (3.5-5.1); TOTAL PROTEIN, SERUM 9.4 g/dL (6.4-8.2)
[2017-04-30] MEDS ORDERED: LIDOCAINE HCL 2% 5 ML JELLY ONE (07:42)
[2017-04-30] MEDS ORDERED: ESMOLOL HCL 100 MG/10 ML VIAL IV ONE (08:03)
[2017-04-30] MEDS: BENAZEPRIL HCL 20 MG TABLET PO SCH (08:32)
[2017-04-30] MEDS: MINOXIDIL 2.5 MG TABLET PO SCH ×2 (08:33→20:43)
[2017-04-30] MEDS: LABETALOL HCL 200 MG TABLET PO SCH ×2 (08:33→20:42)
[2017-04-30] MEDS: CALCIUM ACETATE 667 MG CAPSULE PO SCH ×3 (08:33→16:14)
[2017-04-30] MEDS: TIZANIDINE HCL 4 MG TABLET PO SCH ×2 (08:33→16:14)
[2017-04-30] MEDS: FOLIC ACID/VITAMIN B COMP W-C TABLET PO SCH (08:33)
[2017-04-30] MEDS: PANTOPRAZOLE SODIUM 40 MG TABLET.DR PO SCH (08:33)
[2017-04-30] MEDS: PAROXETINE HCL 10 MG TABLET PO SCH (08:33)
[2017-04-30] MEDS: AMLODIPINE 10 MG TABLET PO SCH ×2 (08:33→16:15)
[2017-04-30 09:37] VITALS: BP 146/92
[2017-04-30 11:56] VITALS: BP 148/84
[2017-04-30 20:59] VITALS: BP 181/109
[2017-05-01] MEDS: HYDROMORPHONE 2 MG/1 ML DISP.SYRIN IV PRN ×4 (02:31→21:51)
[2017-05-01] MEDS: ONDANSETRON 4 MG/2 ML VIAL IV PRN ×2 (03:00→21:50)
[2017-05-01 04:00] VITALS: BP 165/92
[2017-05-01] MEDS: PANTOPRAZOLE SODIUM 40 MG TABLET.DR PO SCH (06:25)
[2017-05-01] MEDS: METOCLOPRAMIDE HCL 10 MG TABLET PO SCH ×3 (07:45→17:17)
[2017-05-01 09:08] LABS: A/G RATIO 0.9 (0.7-1.7); ALBUMIN 4.1 g/dL (2.9-4.4); ALPHA-1-GLOBULIN 0.3 g/dL (0.0-0.4); ALPHA-2-GLOBULIN 0.8 g/dL (0.4-1.0); BETA GLOBULIN 0.7 g/dL (0.7-1.3); GAMMA GLOBULIN 2.7 g/dL (0.4-1.8); GLOBULIN, TOTAL 4.5 g/dL (2.2-3.9); M-SPIKE 2.4 g/dL (Not Observed)
[2017-05-01] MEDS: AMLODIPINE 10 MG TABLET PO SCH ×2 (11:26→17:18)
[2017-05-01] MEDS: TIZANIDINE HCL 4 MG TABLET PO SCH ×2 (11:26→17:18)
[2017-05-01] MEDS: FOLIC ACID/VITAMIN B COMP W-C TABLET PO SCH (11:27)
[2017-05-01] MEDS: BENAZEPRIL HCL 20 MG TABLET PO SCH (11:27)
[2017-05-01] MEDS: MINOXIDIL 2.5 MG TABLET PO SCH ×2 (11:28→21:08)
[2017-05-01] MEDS: PAROXETINE HCL 10 MG TABLET PO SCH (11:28)
[2017-05-01] MEDS: CALCIUM ACETATE 667 MG CAPSULE PO SCH ×3 (11:28→17:19)
[2017-05-01] MEDS: LABETALOL HCL 200 MG TABLET PO SCH ×2 (11:28→21:00)
[2017-05-01 11:32] VITALS: BP 145/82
[2017-05-01 15:42] VITALS: BP 93/60
[2017-05-01 20:29] VITALS: BP 97/54
[2017-05-02] VITALS (7 sets, daily range): BP systolic 83–138; BP diastolic 47–79
[2017-05-02] MEDS: HYDROMORPHONE 2 MG/1 ML DISP.SYRIN IV PRN ×2 (03:39→22:24)
[2017-05-02 06:39] LABS: BASOPHILS % (AUTO) 0.6 % (0.0-2.0); EOSINOPHILS # (AUTO) 0.2 K/uL (0.0-0.7); EOSINOPHILS % (AUTO) 3.2 % (0.0-7.0); HEMATOCRIT 35.3 % (36.7-47.1); HEMOGLOBIN 11.5 g/dL (12.5-16.3); LYMPHOCYTES # (AUTO) 1.7 K/uL (20.0-40.0); LYMPHOCYTES % (AUTO) 33.2 % (20.5-51.5); MEAN CORPUSCULAR HEMOGLOBIN 29.1 uug (23.8-33.4); MEAN CORPUSCULAR HGB CONC 33 g/dL (32.5-36.3); MEAN CORPUSCULAR VOLUME 89.1 fL (73.0-96.2); MONOCYTES # (AUTO) 0.5 K/uL (2.0-10.0); NEUTROPHILS # (AUTO) 2.7 K/uL (1.8-8.9); PLATELET COUNT (AUTO) 314 K/uL (152-348); RED BLOOD CELL COUNT(AUTO) 3.97 MIL/uL (4.06-5.63); WHITE BLOOD COUNT (AUTO) 5.1 K/uL (3.6-10.2)
[2017-05-02 06:49] LABS: MAGNESIUM 2.6 mg/dL (1.8-2.4); PHOSPHOROUS 6.9 mg/dL (2.5-4.9); POTASSIUM 4.7 mmol/L (3.5-5.1)
[2017-05-02 07:05] LABS: CREATININE 10.8 mg/dL (0.6-1.3)
[2017-05-02] MEDS: LABETALOL HCL 200 MG TABLET PO SCH ×3 (08:35→22:18)
[2017-05-02] MEDS: METOCLOPRAMIDE HCL 10 MG TABLET PO SCH ×3 (08:35→16:30)
[2017-05-02] MEDS: PANTOPRAZOLE SODIUM 40 MG TABLET.DR PO SCH (08:36)
[2017-05-02] MEDS: BENAZEPRIL HCL 20 MG TABLET PO SCH (08:36)
[2017-05-02] MEDS: FOLIC ACID/VITAMIN B COMP W-C TABLET PO SCH (08:36)
[2017-05-02] MEDS: TIZANIDINE HCL 4 MG TABLET PO SCH ×2 (08:36→17:00)
[2017-05-02] MEDS: CALCIUM ACETATE 667 MG CAPSULE PO SCH ×3 (08:37→17:00)
[2017-05-02] MEDS: PAROXETINE HCL 10 MG TABLET PO SCH (08:37)
[2017-05-02] MEDS: MINOXIDIL 2.5 MG TABLET PO SCH (08:38)
[2017-05-02] MEDS: AMLODIPINE 10 MG TABLET PO SCH ×2 (08:38→17:00)
[2017-05-02] MEDS: ONDANSETRON 4 MG/2 ML VIAL IV PRN ×2 (13:05→22:25)
[2017-05-03] MEDS: HYDROMORPHONE 2 MG/1 ML DISP.SYRIN IV PRN ×4 (03:52→20:20)
[2017-05-03] MEDS: METOCLOPRAMIDE HCL 10 MG TABLET PO SCH ×3 (05:39→15:13)
[2017-05-03] MEDS: PANTOPRAZOLE SODIUM 40 MG TABLET.DR PO SCH (05:39)
[2017-05-03 06:01] VITALS: BP 94/46
[2017-05-03] MEDS: BENAZEPRIL HCL 20 MG TABLET PO SCH (08:37)
[2017-05-03] MEDS: PAROXETINE HCL 10 MG TABLET PO SCH (08:37)
[2017-05-03] MEDS: AMLODIPINE 10 MG TABLET PO SCH (08:37)
[2017-05-03] MEDS: FOLIC ACID/VITAMIN B COMP W-C TABLET PO SCH (08:37)
[2017-05-03] MEDS: CALCIUM ACETATE 667 MG CAPSULE PO SCH ×4 (08:37→16:02)
[2017-05-03] MEDS: TIZANIDINE HCL 4 MG TABLET PO SCH ×2 (08:38→16:03)
[2017-05-03 11:40] VITALS: BP 88/44
[2017-05-03 16:32] VITALS: BP 126/64
[2017-05-03] MEDS: ONDANSETRON 4 MG/2 ML VIAL IV PRN (20:19)
[2017-05-03 20:41] VITALS: BP 124/60
[2017-05-04] MEDS: HYDROMORPHONE 2 MG/1 ML DISP.SYRIN IV PRN (02:45)
[2017-05-04] MEDS: ONDANSETRON 4 MG/2 ML VIAL IV PRN (03:44)
[2017-05-04 06:18] VITALS: BP 132/62
[2017-05-04 06:30] LABS: BASOPHILS % (AUTO) 0.5 % (0.0-2.0); EOSINOPHILS # (AUTO) 0.1 K/uL (0.0-0.7); EOSINOPHILS % (AUTO) 2.9 % (0.0-7.0); HEMATOCRIT 36.1 % (36.7-47.1); HEMOGLOBIN 11.7 g/dL (12.5-16.3); LYMPHOCYTES # (AUTO) 1.3 K/uL (20.0-40.0); LYMPHOCYTES % (AUTO) 26.2 % (20.5-51.5); MEAN CORPUSCULAR HEMOGLOBIN 28.9 uug (23.8-33.4); MEAN CORPUSCULAR HGB CONC 33 g/dL (32.5-36.3); MEAN CORPUSCULAR VOLUME 88.8 fL (73.0-96.2); MONOCYTES # (AUTO) 0.5 K/uL (2.0-10.0); MONOCYTES % (AUTO) 10.7 % (0.0-11.0); NEUTROPHILS % (AUTO) 59.7 % (38.5-71.5); PLATELET COUNT (AUTO) 294 K/uL (152-348); RED BLOOD CELL COUNT(AUTO) 4.06 MIL/uL (4.06-5.63)
[2017-05-04] MEDS: METOCLOPRAMIDE HCL 10 MG TABLET PO SCH ×3 (06:30→16:30)
[2017-05-04] MEDS: PANTOPRAZOLE SODIUM 40 MG TABLET.DR PO SCH (06:30)
[2017-05-04 06:39] LABS: BILIRUBIN,TOTAL 0.7 mg/dL (0.2-1.0); MAGNESIUM 2.5 mg/dL (1.8-2.4); PHOSPHOROUS 6.9 mg/dL (2.5-4.9); POTASSIUM 5.8 mmol/L (3.5-5.1); TOTAL PROTEIN, SERUM 10.3 g/dL (6.4-8.2)
[2017-05-04 06:56] LABS: CREATININE 11.5 mg/dL (0.6-1.3)
[2017-05-04] MEDS ORDERED: AMLODIPINE 10 MG TABLET PO SCH (09:00)
[2017-05-04] MEDS: BENAZEPRIL HCL 20 MG TABLET PO SCH (09:04)
[2017-05-04] MEDS: CALCIUM ACETATE 667 MG CAPSULE PO SCH ×3 (09:04→17:00)
[2017-05-04] MEDS: TIZANIDINE HCL 4 MG TABLET PO SCH ×2 (09:05→17:00)
[2017-05-04] MEDS: FOLIC ACID/VITAMIN B COMP W-C TABLET PO SCH (09:05)
[2017-05-04] MEDS: PAROXETINE HCL 10 MG TABLET PO SCH (09:05)
[2017-05-04] MEDS ORDERED: AMLO10TA2 PO (09:46)
[2017-05-04 11:06] VITALS: BP 115/64
[2017-05-04 15:24] VITALS: BP 98/42
[2017-05-27] MEDS ORDERED: AMLO5TAB2 PO (12:38)
[2017-05-27] MEDS ORDERED: LABE200T8 PO (12:38)
== END 2017-05-04 17:00 | disposition home or self-care (01) | DRG 199 ==
LOC: ER 18:11 → TELE 21:22 → MED 04-30 11:00
PROVIDERS: ADMIT Internal Medicine; ATTEND Internal Medicine
DX: I16.0 Hypertensive urgency (principal); N18.6 End stage renal disease; I13.11 Hypertensive heart and chronic kidney disease without heart failure, with stage 5 chronic kidney disease, or end stage renal disease; Z99.2 Dependence on renal dialysis; Z87.01 Personal history of pneumonia (recurrent); Z91.19 Patient's noncompliance with other medical treatment and regimen; Z79.899 Other long term (current) drug therapy; D63.8 Anemia in other chronic diseases classified elsewhere; Z59.0 Homelessness; F12.90 Cannabis use, unspecified, uncomplicated; F32.9 Major depressive disorder, single episode, unspecified; K29.70 Gastritis, unspecified, without bleeding; K22.70 Barrett's esophagus without dysplasia; I95.2 Hypotension due to drugs; T50.905A Adverse effect of unspecified drugs, medicaments and biological substances, initial encounter; Y92.230 Patient room in hospital as the place of occurrence of the external cause; K21.9 Gastro-esophageal reflux disease without esophagitis; K31.84 Gastroparesis; G43.A0 Cyclical vomiting, in migraine, not intractable; G89.29 Other chronic pain; F17.200 Nicotine dependence, unspecified, uncomplicated
CPT/HCPCS: 36415; 70030-TC; 71045; 83690; 83735; 83970; 84100; 84155; 84165; 85025; 85730; 88342; 90937; 93005; A4217; A4663; J0360; J1170; J1200; J2405; J3490; J7030; J8597

== ENCOUNTER 2017-05-12 05:37 | Inpatient (IN) | payer OTHER ==
[~2017-05-12] VITALS: Ht 170.2 cm; Wt 60.8 kg
[~2017-05-12 05:37] MED LIST changes: -MINO2.5T PO
[2017-05-12] MEDS ORDERED: HYDROCODONE/APAP 5-325MG TABLET ONE (06:43)
[2017-05-12] MEDS ORDERED: ONDANSETRON ODT 4 MG TAB.RAPDIS ONE (06:43)
[2017-05-12] MEDS ORDERED: HYDROCODONE/APAP 5-325MG TABLET PO ONE (06:45)
[2017-05-12] MEDS ORDERED: ONDANSETRON ODT 4 MG TAB.RAPDIS SL ONE (06:45)
[2017-05-12 07:33] LABS: BILIRUBIN,DIRECT 0.1 mg/dL (0.0-0.2); BILIRUBIN,TOTAL 0.7 mg/dL (0.2-1.0); TOTAL PROTEIN, SERUM 8.6 g/dL (6.4-8.2)
[2017-05-12 07:40] LABS: POTASSIUM 6.5 mmol/L (3.5-5.1)
[2017-05-12 07:41] LABS: CREATININE 14.3 mg/dL (0.6-1.3)
[2017-05-12 07:42] LABS: BASOPHILS % (AUTO) 0.5 % (0.0-2.0); EOSINOPHILS # (AUTO) 0.2 K/uL (0.0-0.7); EOSINOPHILS % (AUTO) 3.5 % (0.0-7.0); HEMATOCRIT 29.9 % (36.7-47.1); LYMPHOCYTES # (AUTO) 1.6 K/uL (20.0-40.0); MEAN CORPUSCULAR HEMOGLOBIN 29.8 uug (23.8-33.4); MEAN CORPUSCULAR HGB CONC 33 g/dL (32.5-36.3); MEAN CORPUSCULAR VOLUME 89.5 fL (73.0-96.2); MONOCYTES # (AUTO) 0.5 K/uL (2.0-10.0); MONOCYTES % (AUTO) 9.1 % (0.0-11.0); NEUTROPHILS # (AUTO) 3.4 K/uL (1.8-8.9); NEUTROPHILS % (AUTO) 58.9 % (38.5-71.5); PLATELET COUNT (AUTO) 212 K/uL (152-348); RED BLOOD CELL COUNT(AUTO) 3.34 MIL/uL (4.06-5.63); WHITE BLOOD COUNT (AUTO) 5.8 K/uL (3.6-10.2)
[2017-05-12] MEDS ORDERED: NITROGLYCERIN 0.4 MG/TAB BOTTLE SL ONE ×2 (08:00→08:01)
[2017-05-12] MEDS ORDERED: CLONIDINE HCL 0.2 MG TABLET PO ONE (08:00)
[2017-05-12] MEDS ORDERED: CLONIDINE HCL 0.2 MG TABLET ONE (08:01)
[2017-05-12 09:23] VITALS: BP 165/93
[2017-05-12] MEDS: LABETALOL HCL 200 MG TABLET PO SCH ×3 (10:30→20:31)
[2017-05-12] MEDS: TIZANIDINE HCL 4 MG TABLET PO SCH ×2 (11:30→17:50)
[2017-05-12] MEDS ORDERED: AMLODIPINE 10 MG TABLET PO SCH (11:30)
[2017-05-12 11:42] VITALS: BP 168/94
[2017-05-12] MEDS: CALCIUM ACETATE 667 MG CAPSULE PO SCH ×2 (11:46→17:49)
[2017-05-12] MEDS: METOCLOPRAMIDE HCL 10 MG TABLET PO SCH ×2 (11:46→17:51)
[2017-05-12] MEDS: PAROXETINE HCL 10 MG TABLET PO SCH (11:46)
[2017-05-12] MEDS: PANTOPRAZOLE SODIUM 40 MG TABLET.DR PO SCH (11:46)
[2017-05-12] MEDS: BENAZEPRIL HCL 20 MG TABLET PO SCH (11:48)
[2017-05-12] MEDS ORDERED: HYDROMORPHONE 1 MG/1 ML DISP.SYRIN IV PRN (13:45)
[2017-05-12] MEDS: MORPHINE SULFATE 4 MG/1 ML DISP.SYRIN IV PRN ×2 (14:05→23:02)
[2017-05-12 15:10] VITALS: BP 170/109
[2017-05-12] MEDS: AMLODIPINE 10 MG TABLET PO SCH (17:49)
[2017-05-12 20:53] VITALS: BP 138/87
[2017-05-13 00:22] VITALS: BP 136/83
[2017-05-13] MEDS: MORPHINE SULFATE 4 MG/1 ML DISP.SYRIN IV PRN (03:48)
[2017-05-13 04:43] VITALS: BP 150/94
[2017-05-13] MEDS: METOCLOPRAMIDE HCL 10 MG TABLET PO SCH ×3 (04:58→20:20)
[2017-05-13] MEDS: PANTOPRAZOLE SODIUM 40 MG TABLET.DR PO SCH ×2 (06:04→18:01)
[2017-05-13 08:00] VITALS: BP 147/89
[2017-05-13] MEDS: CALCIUM ACETATE 667 MG CAPSULE PO SCH ×3 (09:13→20:20)
[2017-05-13] MEDS: PAROXETINE HCL 10 MG TABLET PO SCH (09:14)
[2017-05-13] MEDS: TIZANIDINE HCL 4 MG TABLET PO SCH ×2 (09:14→20:20)
[2017-05-13] MEDS: AMLODIPINE 10 MG TABLET PO SCH ×2 (09:14→20:22)
[2017-05-13] MEDS: FOLIC ACID/VITAMIN B COMP W-C TABLET PO SCH (09:14)
[2017-05-13] MEDS: LABETALOL HCL 200 MG TABLET PO SCH ×2 (09:15→21:00)
[2017-05-13] MEDS: BENAZEPRIL HCL 20 MG TABLET PO SCH (09:15)
[2017-05-13 11:35] VITALS: BP 138/77
[2017-05-13 15:37] VITALS: BP 136/84
[2017-05-13] MEDS: LORAZEPAM 1 MG TABLET PO PRN (18:00)
[2017-05-13 20:31] VITALS: BP 148/89
[2017-05-14] VITALS: BP 155/95
[2017-05-14] MEDS: MORPHINE SULFATE 4 MG/1 ML DISP.SYRIN IV PRN ×5 (00:01→22:43)
[2017-05-14] MEDS: LABETALOL HCL 200 MG TABLET PO SCH ×2 (00:02→21:50)
[2017-05-14 04:00] VITALS: BP 154/90
[2017-05-14] MEDS: PANTOPRAZOLE SODIUM 40 MG TABLET.DR PO SCH ×2 (06:20→16:20)
[2017-05-14] MEDS: METOCLOPRAMIDE HCL 10 MG TABLET PO SCH ×3 (06:31→16:20)
[2017-05-14 07:22] LABS: POTASSIUM 4.8 mmol/L (3.5-5.1)
[2017-05-14 07:24] LABS: CREATININE 10.6 mg/dL (0.6-1.3)
[2017-05-14 07:49] LABS: BASOPHILS % (AUTO) 0.3 % (0.0-2.0); EOSINOPHILS # (AUTO) 0.1 K/uL (0.0-0.7); EOSINOPHILS % (AUTO) 3.4 % (0.0-7.0); HEMATOCRIT 30.7 % (36.7-47.1); HEMOGLOBIN 10.2 g/dL (12.5-16.3); LYMPHOCYTES # (AUTO) 1.5 K/uL (20.0-40.0); MEAN CORPUSCULAR HEMOGLOBIN 29.5 uug (23.8-33.4); MEAN CORPUSCULAR HGB CONC 33 g/dL (32.5-36.3); MEAN CORPUSCULAR VOLUME 88.4 fL (73.0-96.2); MONOCYTES # (AUTO) 0.4 K/uL (2.0-10.0); MONOCYTES % (AUTO) 9.9 % (0.0-11.0); NEUTROPHILS % (AUTO) 50.4 % (38.5-71.5); PLATELET COUNT (AUTO) 220 K/uL (152-348); RED BLOOD CELL COUNT(AUTO) 3.47 MIL/uL (4.06-5.63)
[2017-05-14] MEDS: CALCIUM ACETATE 667 MG CAPSULE PO SCH ×3 (08:12→17:03)
[2017-05-14] MEDS: FOLIC ACID/VITAMIN B COMP W-C TABLET PO SCH (08:13)
[2017-05-14] MEDS: PAROXETINE HCL 10 MG TABLET PO SCH (08:13)
[2017-05-14] MEDS: BENAZEPRIL HCL 20 MG TABLET PO SCH (08:13)
[2017-05-14] MEDS: AMLODIPINE 10 MG TABLET PO SCH ×2 (08:13→16:20)
[2017-05-14] MEDS: TIZANIDINE HCL 4 MG TABLET PO SCH ×2 (08:13→16:20)
[2017-05-14 11:18] VITALS: BP 139/82
[2017-05-14 15:30] VITALS: BP 147/87
[2017-05-14 20:36] VITALS: BP 140/86
[2017-05-15] MEDS: LORAZEPAM 1 MG TABLET PO PRN (00:49)
[2017-05-15 04:00] VITALS: BP 157/92
[2017-05-15] MEDS: PANTOPRAZOLE SODIUM 40 MG TABLET.DR PO SCH ×2 (06:37→16:02)
[2017-05-15] MEDS: CALCIUM ACETATE 667 MG CAPSULE PO SCH ×3 (08:21→17:06)
[2017-05-15] MEDS: FOLIC ACID/VITAMIN B COMP W-C TABLET PO SCH (08:21)
[2017-05-15] MEDS: TIZANIDINE HCL 4 MG TABLET PO SCH ×2 (08:22→16:02)
[2017-05-15] MEDS: AMLODIPINE 10 MG TABLET PO SCH ×2 (08:22→16:02)
[2017-05-15] MEDS: LABETALOL HCL 200 MG TABLET PO SCH ×2 (08:22→20:54)
[2017-05-15] MEDS: METOCLOPRAMIDE HCL 10 MG TABLET PO SCH ×3 (08:22→16:02)
[2017-05-15] MEDS: PAROXETINE HCL 10 MG TABLET PO SCH (08:22)
[2017-05-15] MEDS: BENAZEPRIL HCL 20 MG TABLET PO SCH (08:22)
[2017-05-15] MEDS: MORPHINE SULFATE 4 MG/1 ML DISP.SYRIN IV PRN ×2 (12:06→23:13)
[2017-05-15 13:01] VITALS: BP 154/97
[2017-05-15 15:58] VITALS: BP 158/99
[2017-05-15] MEDS: ONDANSETRON 4 MG/2 ML VIAL IV PRN (17:39)
[2017-05-15 22:00] VITALS: BP 123/90
[2017-05-16] MEDS: MORPHINE SULFATE 4 MG/1 ML DISP.SYRIN IV PRN ×2 (03:35→21:35)
[2017-05-16 04:13] VITALS: BP 164/92
[2017-05-16] MEDS: PANTOPRAZOLE SODIUM 40 MG TABLET.DR PO SCH ×2 (06:20→10:12)
[2017-05-16 06:24] VITALS: BP 152/93
[2017-05-16] MEDS: CALCIUM ACETATE 667 MG CAPSULE PO SCH ×4 (08:25→17:56)
[2017-05-16] MEDS: METOCLOPRAMIDE HCL 10 MG TABLET PO SCH ×4 (08:25→17:56)
[2017-05-16] MEDS: BENAZEPRIL HCL 20 MG TABLET PO SCH (10:11)
[2017-05-16] MEDS: LABETALOL HCL 200 MG TABLET PO SCH ×2 (10:11→21:00)
[2017-05-16] MEDS: PAROXETINE HCL 10 MG TABLET PO SCH (10:11)
[2017-05-16] MEDS: FOLIC ACID/VITAMIN B COMP W-C TABLET PO SCH (10:12)
[2017-05-16] MEDS: AMLODIPINE 10 MG TABLET PO SCH ×2 (10:12→17:57)
[2017-05-16] MEDS: TIZANIDINE HCL 4 MG TABLET PO SCH ×2 (10:12→17:56)
[2017-05-16 12:09] VITALS: BP 112/70
[2017-05-16] MEDS: ONDANSETRON 4 MG/2 ML VIAL IV PRN ×2 (13:40→21:35)
[2017-05-16 16:12] VITALS: BP 167/91
[2017-05-16 21:40] VITALS: BP 118/84
[2017-05-17 04:00] VITALS: BP 131/85
[2017-05-17] MEDS: MORPHINE SULFATE 4 MG/1 ML DISP.SYRIN IV PRN ×2 (04:41→16:04)
[2017-05-17] MEDS: PANTOPRAZOLE SODIUM 40 MG TABLET.DR PO SCH ×2 (06:10→17:11)
[2017-05-17] MEDS: CALCIUM ACETATE 667 MG CAPSULE PO SCH ×3 (08:12→18:23)
[2017-05-17] MEDS: METOCLOPRAMIDE HCL 10 MG TABLET PO SCH (08:12)
[2017-05-17 08:18] LABS: MAGNESIUM 2.7 mg/dL (1.8-2.4); PHOSPHOROUS 7.5 mg/dL (2.5-4.9); POTASSIUM 5.4 mmol/L (3.5-5.1)
[2017-05-17 08:24] LABS: BASOPHILS % (AUTO) 0.3 % (0.0-2.0); EOSINOPHILS # (AUTO) 0.3 K/uL (0.0-0.7); EOSINOPHILS % (AUTO) 5.1 % (0.0-7.0); HEMATOCRIT 32.6 % (36.7-47.1); HEMOGLOBIN 10.9 g/dL (12.5-16.3); LYMPHOCYTES # (AUTO) 1.5 K/uL (20.0-40.0); LYMPHOCYTES % (AUTO) 28.4 % (20.5-51.5); MEAN CORPUSCULAR HEMOGLOBIN 29.5 uug (23.8-33.4); MEAN CORPUSCULAR HGB CONC 33 g/dL (32.5-36.3); MEAN CORPUSCULAR VOLUME 88.5 fL (73.0-96.2); MONOCYTES # (AUTO) 0.5 K/uL (2.0-10.0); MONOCYTES % (AUTO) 9.4 % (0.0-11.0); NEUTROPHILS # (AUTO) 2.9 K/uL (1.8-8.9); NEUTROPHILS % (AUTO) 56.8 % (38.5-71.5); PLATELET COUNT (AUTO) 187 K/uL (152-348); RED BLOOD CELL COUNT(AUTO) 3.68 MIL/uL (4.06-5.63); WHITE BLOOD COUNT (AUTO) 5.1 K/uL (3.6-10.2)
[2017-05-17 08:27] LABS: CREATININE 14.6 mg/dL (0.6-1.3)
[2017-05-17] MEDS: BENAZEPRIL HCL 20 MG TABLET PO SCH (09:00)
[2017-05-17] MEDS: PAROXETINE HCL 10 MG TABLET PO SCH (09:00)
[2017-05-17] MEDS: AMLODIPINE 10 MG TABLET PO SCH ×2 (09:00→17:12)
[2017-05-17] MEDS: FOLIC ACID/VITAMIN B COMP W-C TABLET PO SCH (09:00)
[2017-05-17] MEDS: LABETALOL HCL 200 MG TABLET PO SCH ×2 (09:00→20:03)
[2017-05-17] MEDS: ONDANSETRON 4 MG/2 ML VIAL IV PRN ×2 (09:54→19:53)
[2017-05-17 11:23] VITALS: BP 136/82
[2017-05-17 15:40] VITALS: BP 145/88
[2017-05-17] MEDS: METOCLOPRAMIDE HCL 5 MG TABLET PO SCH (17:12)
[2017-05-17 20:58] VITALS: BP 174/106
[2017-05-17 21:05] VITALS: BP 147/101
[2017-05-17] MEDS: LORAZEPAM 1 MG TABLET PO PRN (23:17)
[2017-05-18] MEDS: MORPHINE SULFATE 4 MG/1 ML DISP.SYRIN IV PRN (00:23)
[2017-05-18 04:00] VITALS: BP 163/98
[2017-05-18] MEDS: PANTOPRAZOLE SODIUM 40 MG TABLET.DR PO SCH (06:07)
[2017-05-18] MEDS: PAROXETINE HCL 10 MG TABLET PO SCH (08:03)
[2017-05-18] MEDS: FOLIC ACID/VITAMIN B COMP W-C TABLET PO SCH (08:03)
[2017-05-18] MEDS: METOCLOPRAMIDE HCL 5 MG TABLET PO SCH ×2 (08:03→12:23)
[2017-05-18] MEDS: CALCIUM ACETATE 667 MG CAPSULE PO SCH ×2 (08:03→12:23)
[2017-05-18] MEDS: ONDANSETRON 4 MG/2 ML VIAL IV PRN (08:31)
[2017-05-18] MEDS: BENAZEPRIL HCL 20 MG TABLET PO SCH (10:42)
[2017-05-18] MEDS: LABETALOL HCL 200 MG TABLET PO SCH (10:43)
[2017-05-18] MEDS: AMLODIPINE 10 MG TABLET PO SCH (10:43)
[2017-05-18 11:16] VITALS: BP 163/99
[2017-05-18 15:05] VITALS: BP 128/85
== END 2017-05-18 16:15 | disposition home or self-care (01) | DRG 470 ==
LOC: ER 05:38 → TELE 08:26 → MED 05-13 20:40
PROVIDERS: ADMIT Internal Medicine; ATTEND Internal Medicine
PROC: 5A1D70Z Performance of Urinary Filtration, Intermittent, Less than 6 Hours Per Day (ICD-10-PCS; principal; 2017-05-12)
DX: N18.6 End stage renal disease (principal); I12.0 Hypertensive chronic kidney disease with stage 5 chronic kidney disease or end stage renal disease; E87.5 Hyperkalemia; K31.84 Gastroparesis; Z99.2 Dependence on renal dialysis; G89.4 Chronic pain syndrome; K29.70 Gastritis, unspecified, without bleeding; Z91.19 Patient's noncompliance with other medical treatment and regimen; Z59.0 Homelessness; D64.9 Anemia, unspecified; Z79.899 Other long term (current) drug therapy; Z87.01 Personal history of pneumonia (recurrent); F12.90 Cannabis use, unspecified, uncomplicated
CPT/HCPCS: 36415; 71045; 83735; 84100; 84520; 85025; 87400; 90937; 93005; A4663; J2270; J2405; J8597; Q0162

== ENCOUNTER 2017-05-24 18:20 | Inpatient (IN) | payer OTHER ==
[~2017-05-24] VITALS: Ht 170.2 cm; Wt 63.5 kg
[2017-05-24] MEDS ORDERED: SODIUM BICARBONATE 8.4% 50 MEQ/50 ML DISP.SYRIN IV ONE ×2 (18:45→19:02)
[2017-05-24] MEDS ORDERED: DEXTROSE 50% 50 ML DISP.SYRIN IV ONE (18:45)
[2017-05-24] MEDS ORDERED: CALCIUM CHLORIDE 1 GM/10 ML DISP.SYRIN IVP ONE ×2 (18:45→18:47)
[2017-05-24] MEDS ORDERED: INSULIN REGULAR, HUMAN 1,000 UNITS/10 ML VIAL IV ONE (18:45)
[2017-05-24] MEDS ORDERED: ONDANSETRON 4 MG/2 ML VIAL IV ONE (19:00)
[2017-05-24] MEDS ORDERED: hydrALAZINE HCL 20 MG/1 ML VIAL IV ONE ×2 (19:00→20:00)
[2017-05-24] MEDS ORDERED: MORPHINE SULFATE 4 MG/1 ML DISP.SYRIN IV ONE (19:00)
[2017-05-24] MEDS ORDERED: ONDANSETRON 4 MG/2 ML VIAL ONE (19:02)
[2017-05-24] MEDS ORDERED: MORPHINE SULFATE 4 MG/1 ML DISP.SYRIN ONE (19:02)
[2017-05-24 19:05] LABS: BASOPHILS % (AUTO) 0.3 % (0.0-2.0); EOSINOPHILS # (AUTO) 0.3 K/uL (0.0-0.7); EOSINOPHILS % (AUTO) 4.9 % (0.0-7.0); HEMATOCRIT 28.8 % (36.7-47.1); HEMOGLOBIN 9.6 g/dL (12.5-16.3); LYMPHOCYTES # (AUTO) 1.7 K/uL (20.0-40.0); LYMPHOCYTES % (AUTO) 29.8 % (20.5-51.5); MEAN CORPUSCULAR HEMOGLOBIN 29.5 uug (23.8-33.4); MEAN CORPUSCULAR HGB CONC 33 g/dL (32.5-36.3); MEAN CORPUSCULAR VOLUME 88.2 fL (73.0-96.2); MONOCYTES # (AUTO) 0.5 K/uL (2.0-10.0); NEUTROPHILS # (AUTO) 3.2 K/uL (1.8-8.9); PLATELET COUNT (AUTO) 184 K/uL (152-348); RED BLOOD CELL COUNT(AUTO) 3.27 MIL/uL (4.06-5.63); WHITE BLOOD COUNT (AUTO) 5.7 K/uL (3.6-10.2)
[2017-05-24 19:17] LABS: BILIRUBIN,DIRECT 0.2 mg/dL (0.0-0.2); BILIRUBIN,TOTAL 0.6 mg/dL (0.2-1.0); TOTAL PROTEIN, SERUM 9.3 g/dL (6.4-8.2)
[2017-05-24 19:26] LABS: POTASSIUM 7.7 mmol/L (3.5-5.1)
[2017-05-24 19:27] LABS: CREATININE 18.2 mg/dL (0.6-1.3)
[2017-05-24] MEDS ORDERED: hydrALAZINE HCL 20 MG/1 ML VIAL ONE ×2 (19:35→19:57)
[2017-05-24] MEDS ORDERED: DEXTROSE 50% 50 ML DISP.SYRIN ONE (19:35)
[2017-05-24] MEDS ORDERED: INSULIN NPH 1,000 UNITS/10 ML VIAL SQ ONE (19:35)
[2017-05-24] MEDS ORDERED: CLONIDINE HCL 0.1 MG TABLET ONE (19:57)
[2017-05-24] MEDS ORDERED: CLONIDINE HCL 0.1 MG TABLET PO ONE (20:00)
[2017-05-24 21:00] VITALS: BP 201/111
[2017-05-24] MEDS ORDERED: HYDROMORPHONE 4 MG/1 ML DISP.SYRIN ONE (23:53)
[2017-05-25] VITALS: BP 205/112
[2017-05-25] MEDS: HYDROMORPHONE 1 MG/1 ML DISP.SYRIN IV PRN ×2 (00:28→04:12)
[2017-05-25 04:59] VITALS: BP 215/137
[2017-05-25] MEDS: PANTOPRAZOLE SODIUM 40 MG TABLET.DR PO SCH (07:00)
[2017-05-25] MEDS ORDERED: MORPHINE SULFATE 4 MG/1 ML DISP.SYRIN IV PRN (07:15)
[2017-05-25] MEDS: METOCLOPRAMIDE HCL 5 MG TABLET PO SCH ×3 (07:30→16:51)
[2017-05-25] MEDS ORDERED: METOCLOPRAMIDE HCL 10 MG TABLET PO SCH (07:30)
[2017-05-25] MEDS: CALCIUM ACETATE 667 MG CAPSULE PO SCH ×3 (08:00→17:32)
[2017-05-25] MEDS ORDERED: AMLODIPINE 5 MG TABLET PO SCH (09:00)
[2017-05-25] MEDS ORDERED: LABETALOL HCL 200 MG TABLET PO SCH (09:00)
[2017-05-25] MEDS ORDERED: BENAZEPRIL HCL 20 MG TABLET PO SCH (09:00)
[2017-05-25] MEDS ORDERED: AMLODIPINE 10 MG TABLET PO SCH (09:00)
[2017-05-25] MEDS: FOLIC ACID/VITAMIN B COMP W-C TABLET PO SCH (09:00)
[2017-05-25] MEDS: PAROXETINE HCL 10 MG TABLET PO SCH (09:00)
[2017-05-25] MEDS: TIZANIDINE HCL 4 MG TABLET PO SCH ×2 (09:00→17:00)
[2017-05-25] MEDS ORDERED: ONDANSETRON 4 MG/2 ML VIAL IV PRN (10:00)
[2017-05-25] MEDS ORDERED: CLONIDINE HCL 0.1 MG TABLET PO PRN (10:00)
[2017-05-25 10:27] LABS: BASOPHILS % (AUTO) 0.5 % (0.0-2.0); EOSINOPHILS # (AUTO) 0.2 K/uL (0.0-0.7); EOSINOPHILS % (AUTO) 2.8 % (0.0-7.0); HEMATOCRIT 27.8 % (36.7-47.1); HEMOGLOBIN 9.4 g/dL (12.5-16.3); LYMPHOCYTES # (AUTO) 1.4 K/uL (20.0-40.0); MEAN CORPUSCULAR HEMOGLOBIN 29.7 uug (23.8-33.4); MEAN CORPUSCULAR HGB CONC 34 g/dL (32.5-36.3); MEAN CORPUSCULAR VOLUME 87.7 fL (73.0-96.2); MONOCYTES # (AUTO) 0.4 K/uL (2.0-10.0); MONOCYTES % (AUTO) 5.9 % (0.0-11.0); NEUTROPHILS # (AUTO) 4.3 K/uL (1.8-8.9); NEUTROPHILS % (AUTO) 68.8 % (38.5-71.5); PLATELET COUNT (AUTO) 177 K/uL (152-348); RED BLOOD CELL COUNT(AUTO) 3.18 MIL/uL (4.06-5.63); WHITE BLOOD COUNT (AUTO) 6.2 K/uL (3.6-10.2)
[2017-05-25 10:54] LABS: CREATININE 16.5 mg/dL (0.6-1.3)
[2017-05-25 11:29] VITALS: BP 190/117
[2017-05-25] MEDS: LABETALOL HCL 200 MG TABLET PO SCH ×2 (12:39→17:00)
[2017-05-25 15:24] VITALS: BP 162/96
[2017-05-25] MEDS: AMLODIPINE 5 MG TABLET PO SCH (17:00)
[2017-05-25] MEDS: BENAZEPRIL HCL 20 MG TABLET PO SCH (17:00)
[2017-05-25] MEDS: MORPHINE SULFATE 4 MG/1 ML DISP.SYRIN IM PRN ×2 (19:41→23:52)
[2017-05-25 20:00] VITALS: BP 157/93
[2017-05-25] MEDS: ONDANSETRON 4 MG/2 ML VIAL IM PRN (23:02)
[2017-05-26 00:48] VITALS: BP 156/83
[2017-05-26] MEDS: ZOLPIDEM 5 MG TABLET PO PRN ×2 (02:43→23:06)
[2017-05-26 04:00] VITALS: BP 149/99
[2017-05-26 06:23] LABS: BASOPHILS % (AUTO) 0.3 % (0.0-2.0); EOSINOPHILS # (AUTO) 0.2 K/uL (0.0-0.7); EOSINOPHILS % (AUTO) 4.3 % (0.0-7.0); HEMATOCRIT 27.9 % (36.7-47.1); HEMOGLOBIN 9.4 g/dL (12.5-16.3); LYMPHOCYTES # (AUTO) 1.2 K/uL (20.0-40.0); LYMPHOCYTES % (AUTO) 24.4 % (20.5-51.5); MEAN CORPUSCULAR HEMOGLOBIN 29.5 uug (23.8-33.4); MEAN CORPUSCULAR HGB CONC 34 g/dL (32.5-36.3); MEAN CORPUSCULAR VOLUME 87.5 fL (73.0-96.2); MONOCYTES # (AUTO) 0.6 K/uL (2.0-10.0); MONOCYTES % (AUTO) 12.7 % (0.0-11.0); NEUTROPHILS # (AUTO) 2.8 K/uL (1.8-8.9); NEUTROPHILS % (AUTO) 58.3 % (38.5-71.5); PLATELET COUNT (AUTO) 180 K/uL (152-348); RED BLOOD CELL COUNT(AUTO) 3.19 MIL/uL (4.06-5.63); WHITE BLOOD COUNT (AUTO) 4.7 K/uL (3.6-10.2)
[2017-05-26] MEDS: PANTOPRAZOLE SODIUM 40 MG TABLET.DR PO SCH (06:41)
[2017-05-26 06:49] LABS: BILIRUBIN,TOTAL 0.6 mg/dL (0.2-1.0); MAGNESIUM 2.4 mg/dL (1.8-2.4); POTASSIUM 5.9 mmol/L (3.5-5.1); TOTAL PROTEIN, SERUM 8.7 g/dL (6.4-8.2)
[2017-05-26 06:55] LABS: CREATININE 14.4 mg/dL (0.6-1.3)
[2017-05-26 06:56] LABS: PHOSPHOROUS 8.7 mg/dL (2.5-4.9)
[2017-05-26] MEDS: METOCLOPRAMIDE HCL 5 MG TABLET PO SCH ×3 (07:30→16:51)
[2017-05-26] MEDS: CALCIUM ACETATE 667 MG CAPSULE PO SCH ×3 (08:00→18:00)
[2017-05-26] MEDS: FOLIC ACID/VITAMIN B COMP W-C TABLET PO SCH (10:12)
[2017-05-26] MEDS: AMLODIPINE 5 MG TABLET PO SCH ×2 (10:13→16:51)
[2017-05-26] MEDS: TIZANIDINE HCL 4 MG TABLET PO SCH ×2 (10:13→16:51)
[2017-05-26] MEDS: PAROXETINE HCL 10 MG TABLET PO SCH (10:13)
[2017-05-26] MEDS: BENAZEPRIL HCL 20 MG TABLET PO SCH (10:13)
[2017-05-26] MEDS: LABETALOL HCL 200 MG TABLET PO SCH ×3 (10:14→16:52)
[2017-05-26] MEDS: DOXAZOSIN 1 MG TABLET PO SCH ×2 (10:45→20:34)
[2017-05-26 10:53] VITALS: BP 163/98
[2017-05-26] MEDS: ONDANSETRON 4 MG/2 ML VIAL IM PRN (13:26)
[2017-05-26 16:59] VITALS: BP 133/83
[2017-05-26 18:35] VITALS: BP 115/69
[2017-05-26 20:00] VITALS: BP 112/81
[2017-05-26] MEDS: MORPHINE SULFATE 4 MG/1 ML DISP.SYRIN IM PRN (23:06)
[2017-05-26] MEDS ORDERED: ENALAPRILAT DIHYDRATE INJ 2.5 MG in IV NORMAL SALINE 50 ML IV PRN (23:15)
[2017-05-27] VITALS: BP 138/77
[2017-05-27 04:00] VITALS: BP 128/80
[2017-05-27] MEDS: PANTOPRAZOLE SODIUM 40 MG TABLET.DR PO SCH (06:17)
[2017-05-27] MEDS: MORPHINE SULFATE 4 MG/1 ML DISP.SYRIN IM PRN (06:18)
[2017-05-27] MEDS: METOCLOPRAMIDE HCL 5 MG TABLET PO SCH ×2 (06:31→11:41)
[2017-05-27] MEDS: CALCIUM ACETATE 667 MG CAPSULE PO SCH ×3 (08:00→12:00)
[2017-05-27 08:17] VITALS: BP 129/74
[2017-05-27] MEDS: FOLIC ACID/VITAMIN B COMP W-C TABLET PO SCH (09:59)
[2017-05-27] MEDS: TIZANIDINE HCL 4 MG TABLET PO SCH (09:59)
[2017-05-27] MEDS: PAROXETINE HCL 10 MG TABLET PO SCH (10:00)
[2017-05-27] MEDS: LABETALOL HCL 200 MG TABLET PO SCH ×2 (10:01→13:00)
[2017-05-27] MEDS: AMLODIPINE 5 MG TABLET PO SCH (10:02)
[2017-05-27] MEDS: BENAZEPRIL HCL 20 MG TABLET PO SCH (10:02)
[2017-05-27 11:48] VITALS: BP 123/64
[2017-05-27 11:56] LABS: POTASSIUM 5.5 mmol/L (3.5-5.1)
[2017-05-27 11:58] LABS: CREATININE 13.4 mg/dL (0.6-1.3)
[2017-05-27 12:06] LABS: BASOPHILS % (AUTO) 0.9 % (0.0-2.0); EOSINOPHILS # (AUTO) 0.3 K/uL (0.0-0.7); EOSINOPHILS % (AUTO) 7.3 % (0.0-7.0); HEMATOCRIT 29.7 % (36.7-47.1); LYMPHOCYTES # (AUTO) 1.3 K/uL (20.0-40.0); LYMPHOCYTES % (AUTO) 38.5 % (20.5-51.5); MEAN CORPUSCULAR HEMOGLOBIN 29.6 uug (23.8-33.4); MEAN CORPUSCULAR HGB CONC 34 g/dL (32.5-36.3); MEAN CORPUSCULAR VOLUME 87.7 fL (73.0-96.2); MONOCYTES # (AUTO) 0.5 K/uL (2.0-10.0); MONOCYTES % (AUTO) 14.5 % (0.0-11.0); NEUTROPHILS # (AUTO) 1.3 K/uL (1.8-8.9); NEUTROPHILS % (AUTO) 38.8 % (38.5-71.5); PLATELET COUNT (AUTO) 192 K/uL (152-348); RED BLOOD CELL COUNT(AUTO) 3.39 MIL/uL (4.06-5.63); WHITE BLOOD COUNT (AUTO) 3.5 K/uL (3.6-10.2)
[2017-05-27] MEDS ORDERED: AMLO5TAB2 PO (12:38)
[2017-05-27] MEDS ORDERED: LABE200T8 PO (12:38)
[2017-05-27] MEDS ORDERED: SODIUM POLYSTYRENE SULFONATE 15 G/60 ML LIQUID UDC PO ONE (12:45)
[2017-05-27 15:24] VITALS: BP 119/76
== END 2017-05-27 17:10 | disposition home or self-care (01) | DRG 194 ==
LOC: ER 18:20 → TELE 20:39 → MED 05-27 12:09
PROVIDERS: ADMIT Internal Medicine; ATTEND Internal Medicine
PROC: 5A1D70Z Performance of Urinary Filtration, Intermittent, Less than 6 Hours Per Day (ICD-10-PCS; principal; 2017-05-24)
DX: I13.2 Hypertensive heart and chronic kidney disease with heart failure and with stage 5 chronic kidney disease, or end stage renal disease (principal); N18.6 End stage renal disease; E87.5 Hyperkalemia; I12.0 Hypertensive chronic kidney disease with stage 5 chronic kidney disease or end stage renal disease; I50.9 Heart failure, unspecified; Z99.2 Dependence on renal dialysis; Z91.15 Patient's noncompliance with renal dialysis; K21.9 Gastro-esophageal reflux disease without esophagitis; D63.1 Anemia in chronic kidney disease; Z79.899 Other long term (current) drug therapy; G89.4 Chronic pain syndrome; R51 Headache; R11.2 Nausea with vomiting, unspecified
CPT/HCPCS: 36415; 70030-TC; 71045; 83735; 84100; 85025; 85730; 90937; 93005; A4663; J0360; J1170; J1815; J2270; J2405; J3490; J8597

== ENCOUNTER 2017-06-08 22:18 | Inpatient (IN) | payer OTHER ==
[~2017-06-08] VITALS: Ht 170.2 cm; Wt 61.9 kg
[~2017-06-08 22:18] MED LIST changes: -AMLO10TA2 PO; +AMLO5TAB2 PO; -LABE200T PO; +LABE200T8 PO
--- NOTE | 2017-06-08 22:50 | NUR ---
DR CHRISTA PANIAGUA MD AT BEDSIDE FOR MSE.
[2017-06-08] MEDS ORDERED: ONDANSETRON 4 MG/2 ML VIAL IV ONE (23:00)
[2017-06-08] MEDS ORDERED: MORPHINE SULFATE 2 MG/1 ML DISP.SYRIN IV ONE (23:00)
--- NOTE | 2017-06-08 23:02 | NUR ---
PT RESTING IN BED IN A POSITION OF COMFORT, WATCHING TV. NO ACUTE DISTRESS NOTED.
[2017-06-08] MEDS ORDERED: LABETALOL HCL 100 MG/20 ML VIAL IV ONE (23:15)
[2017-06-08] MEDS ORDERED: MORPHINE SULFATE 4 MG/1 ML DISP.SYRIN ONE (23:17)
[2017-06-08] MEDS ORDERED: ONDANSETRON 4 MG/2 ML VIAL ONE (23:17)
[2017-06-08] MEDS ORDERED: LABETALOL HCL 100 MG/20 ML VIAL ONE (23:17)
[2017-06-08 23:24] LABS: BASOPHILS % (AUTO) 0.3 % (0.0-2.0); EOSINOPHILS # (AUTO) 0.2 K/uL (0.0-0.7); EOSINOPHILS % (AUTO) 3.4 % (0.0-7.0); HEMATOCRIT 25.6 % (36.7-47.1); HEMOGLOBIN 8.6 g/dL (12.5-16.3); LYMPHOCYTES # (AUTO) 1.6 K/uL (20.0-40.0); LYMPHOCYTES % (AUTO) 25.9 % (20.5-51.5); MEAN CORPUSCULAR HEMOGLOBIN 29.9 uug (23.8-33.4); MEAN CORPUSCULAR HGB CONC 34 g/dL (32.5-36.3); MEAN CORPUSCULAR VOLUME 88.4 fL (73.0-96.2); MONOCYTES # (AUTO) 0.6 K/uL (2.0-10.0); MONOCYTES % (AUTO) 9.5 % (0.0-11.0); NEUTROPHILS # (AUTO) 3.7 K/uL (1.8-8.9); NEUTROPHILS % (AUTO) 60.9 % (38.5-71.5); PLATELET COUNT (AUTO) 292 K/uL (152-348); WHITE BLOOD COUNT (AUTO) 6.1 K/uL (3.6-10.2)
--- NOTE | 2017-06-08 23:26 | NUR ---
RADIOLOGY CALLED FOR CHEST XRAY.
--- NOTE | 2017-06-08 23:34 | NUR ---
XRAY AT BEDSIDE.
[2017-06-08 23:44] LABS: BILIRUBIN,DIRECT 0.2 mg/dL (0.0-0.2); BILIRUBIN,TOTAL 0.6 mg/dL (0.2-1.0); POTASSIUM 4.9 mmol/L (3.5-5.1); TOTAL PROTEIN, SERUM 9.7 g/dL (6.4-8.2)
--- NOTE | 2017-06-08 23:58 | NUR ---
PT RESTING IN BED W/ EYES CLOSED. NO DISTRESS NOTED. BP TRENDING DOWN.
[2017-06-09] MEDS ORDERED: hydrALAZINE HCL 20 MG/1 ML VIAL IV ONE (00:15)
[2017-06-09] MEDS ORDERED: CLONIDINE HCL 0.2 MG TABLET PO ONE (00:15)
[2017-06-09] MEDS ORDERED: CLONIDINE HCL 0.1 MG TABLET ONE (00:19)
[2017-06-09] MEDS ORDERED: hydrALAZINE HCL 20 MG/1 ML VIAL ONE (00:19)
--- NOTE | 2017-06-09 00:45 | NUR ---
REPORT GIVEN TO TONIO CANAS.
--- NOTE | 2017-06-09 01:03 | NUR ---
Pt. admitted to TELE, under care of Dr. CLARK Belongs List completed
--- NOTE | 2017-06-09 01:05 | NUR ---
Admitted a 47 y.o. male patient from ER with DX: hypertension. Patient ANDRE, able to make needs known. Was just discharged 05/27/17. Assessment completed. NAD noted. Addendum: 06/09/17 at 0231 by ASAEL GRACIA RN Amended: Links added.
[2017-06-09 01:19] VITALS: BP 166/101
[2017-06-09 04:00] VITALS: BP 146/93
--- NOTE | 2017-06-09 04:30 | NUR ---
Sleeping; easily arouses to name. WW=[id number].
[2017-06-09] MEDS: NITROGLYCERIN OINT 1 GM PACKET TP SCH ×4 (05:50→23:37)
--- NOTE | 2017-06-09 06:00 | NUR ---
Patient refused Nitropaste to chest wall; claims it irritates his skin. Noted small amount of blood to R side of lower lip. Patient appears to have bitten lip while asleep. Will monitor.
[2017-06-09 06:39] LABS: BASOPHILS % (AUTO) 0.5 % (0.0-2.0); EOSINOPHILS # (AUTO) 0.2 K/uL (0.0-0.7); EOSINOPHILS % (AUTO) 3.8 % (0.0-7.0); HEMATOCRIT 22.8 % (36.7-47.1); HEMOGLOBIN 7.8 g/dL (12.5-16.3); LYMPHOCYTES # (AUTO) 1.7 K/uL (20.0-40.0); LYMPHOCYTES % (AUTO) 30.7 % (20.5-51.5); MEAN CORPUSCULAR HEMOGLOBIN 30.2 uug (23.8-33.4); MEAN CORPUSCULAR HGB CONC 34 g/dL (32.5-36.3); MEAN CORPUSCULAR VOLUME 87.7 fL (73.0-96.2); MONOCYTES # (AUTO) 0.6 K/uL (2.0-10.0); MONOCYTES % (AUTO) 9.9 % (0.0-11.0); NEUTROPHILS # (AUTO) 3.1 K/uL (1.8-8.9); NEUTROPHILS % (AUTO) 55.1 % (38.5-71.5); PLATELET COUNT (AUTO) 254 K/uL (152-348); WHITE BLOOD COUNT (AUTO) 5.7 K/uL (3.6-10.2)
--- NOTE | 2017-06-09 07:00 | NUR ---
No further bleeding of lower lip noted. Report to koby ELIZALDE.
[2017-06-09 07:17] LABS: MAGNESIUM 2.4 mg/dL (1.8-2.4); POTASSIUM 5.1 mmol/L (3.5-5.1)
[2017-06-09 07:23] LABS: CREATININE 15.3 mg/dL (0.6-1.3); PHOSPHOROUS 9.2 mg/dL (2.5-4.9)
[2017-06-09] MEDS ORDERED: METOCLOPRAMIDE HCL 10 MG TABLET PO SCH (07:45)
--- NOTE | 2017-06-09 08:00 | NUR ---
RESTING WELL AND QUIET NO SOB OR PAIN AT THIS TIME HL INPLACE RFA #20
[2017-06-09] MEDS: BENAZEPRIL HCL 20 MG TABLET PO SCH ×2 (09:00→16:30)
[2017-06-09] MEDS: PANTOPRAZOLE SODIUM 40 MG TABLET.DR PO SCH (09:20)
[2017-06-09] MEDS: CALCIUM ACETATE 667 MG CAPSULE PO SCH ×3 (09:20→16:55)
[2017-06-09] MEDS: FOLIC ACID/VITAMIN B COMP W-C TABLET PO SCH (09:21)
[2017-06-09] MEDS: TIZANIDINE HCL 4 MG TABLET PO SCH ×2 (09:21→16:54)
--- NOTE | 2017-06-09 10:00 | NUR ---
START HD TO DAY AT BEDSIDE LESLIE PROCEDURE WELL EAT SMALL AMT OF BREAKFAST NO PAIN OR N/V
[2017-06-09 11:40] VITALS: BP_SYST 153; BP_SYST 161; BP_DIAS 88; BP_DIAS 93
--- NOTE | 2017-06-09 12:30 | NUR ---
HD COMPLETE TAKE OUT 2500ML FLD AND EAT LUNCH AT THIS TIME NO SOB OR PAIN
[2017-06-09] MEDS: METOCLOPRAMIDE HCL 5 MG TABLET PO SCH ×2 (12:49→16:54)
[2017-06-09] MEDS: PAROXETINE HCL 10 MG TABLET PO SCH (12:49)
[2017-06-09] MEDS: AMLODIPINE 5 MG TABLET PO SCH ×2 (12:50→21:08)
[2017-06-09] MEDS: LABETALOL HCL 200 MG TABLET PO SCH ×3 (12:50→21:09)
[2017-06-09 15:44] VITALS: BP 161/93
--- NOTE | 2017-06-09 18:00 | NUR ---
STABLE HEMODYNAMIC STATUS NO ACUTE DISTRESS NO SOB OR PAIN SAFETY MEASURE PROVIDED BED ALARM ON AND CALL LIGHT IN REACH
[2017-06-09 20:00] VITALS: BP 136/83
--- NOTE | 2017-06-09 21:21 | NUR ---
patient in bed aaox4/maex4.warm food ate 75% of he dinner . patient able to feed self . due hs medication tolerated and took with water . call light placed with in reach and advised patient to call for help.
--- NOTE | 2017-06-09 22:33 | NUR ---
PT COMPLAINED OF GEN. PAIN WITH A SCALE OF 10/10. CALLED DOCTOR DYLAN AND OBTAIN ORDER FOR MORPHINE 4MG Q6HRS PRN FOR PAIN. ORDER READ BACK, VERIFIED AND CARRIED OUT.
[2017-06-09] MEDS: MORPHINE SULFATE 4 MG/1 ML DISP.SYRIN IV PRN (22:44)
[2017-06-10] VITALS: BP 141/89
[2017-06-10 04:00] VITALS: BP 122/73
[2017-06-10] MEDS: MORPHINE SULFATE 4 MG/1 ML DISP.SYRIN IV PRN ×4 (04:29→23:14)
[2017-06-10] MEDS: NITROGLYCERIN OINT 1 GM PACKET TP SCH ×4 (06:00→23:46)
--- NOTE | 2017-06-10 06:04 | NUR ---
AAOx4. Denies any further pain at this time. In no acute distress. O2 sat at 97% on RA. SR with ST changes on tele at 70/min. IV site on RFA intact and patent. Safety measure maintained and call santos within reach.
[2017-06-10] MEDS: PANTOPRAZOLE SODIUM 40 MG TABLET.DR PO SCH (06:31)
[2017-06-10] MEDS: LABETALOL HCL 200 MG TABLET PO SCH ×4 (06:31→21:04)
[2017-06-10] MEDS: METOCLOPRAMIDE HCL 5 MG TABLET PO SCH ×3 (06:31→16:08)
--- NOTE | 2017-06-10 08:00 | NUR ---
AWAKE ALERT COOPERATE WELL NO SOB OR PAIN RESTING WELL WITH CALL FOSTER IN REACH EAT BREAKFAST MOD AMT NO N/V
[2017-06-10] MEDS: CALCIUM ACETATE 667 MG CAPSULE PO SCH ×4 (08:48→17:00)
[2017-06-10] MEDS: PAROXETINE HCL 10 MG TABLET PO SCH (08:49)
[2017-06-10] MEDS: TIZANIDINE HCL 4 MG TABLET PO SCH ×2 (08:49→17:00)
[2017-06-10] MEDS: FOLIC ACID/VITAMIN B COMP W-C TABLET PO SCH (08:49)
[2017-06-10] MEDS: BENAZEPRIL HCL 20 MG TABLET PO SCH (09:00)
[2017-06-10] MEDS: AMLODIPINE 5 MG TABLET PO SCH ×2 (09:00→21:03)
--- NOTE | 2017-06-10 10:00 | NUR ---
DR ALVARES SEE PATIENT AND ORDER SCHEDULE FOR HD TODAY ,PATIENT WAS INFORM
[2017-06-10 11:37] VITALS: BP 126/76
[2017-06-10] MEDS: EPOETIN ALFA 10,000 UNITS/ML VIAL IV ONE ×3 (12:00→18:14)
[2017-06-10 14:00] VITALS: BP 121/77
[2017-06-10 15:55] VITALS: BP 126/73
--- NOTE | 2017-06-10 16:30 | NUR ---
JOSE ANTONIO WAS CALL REGARDING NEED MEDICATION FOR NAUSEA AND MESSAGE LEFT
--- NOTE | 2017-06-10 17:15 | NUR ---
DR ALVARES CALL BACK AND ORDER RECIEVED ZOFRAN PRN GIVEN TO PATIENT ORDER
[2017-06-10] MEDS: ONDANSETRON 4 MG/2 ML VIAL IV PRN ×2 (17:24→23:13)
--- NOTE | 2017-06-10 17:30 | NUR ---
STABLE HEMODYNAMIC STATUS PAIN UNDER CONTROL SAFETY MEASURE PROVIDED CALL LIGHT IN REACH
--- NOTE | 2017-06-10 18:00 | NUR ---
START HD TODAY TOLERATE WELL NO PAIN RESTING
[2017-06-10 19:58] VITALS: BP 139/85
--- NOTE | 2017-06-10 20:30 | NUR ---
H/D done took out 2.5 litre,patient tolerated well, ate dinner 100%
[2017-06-11 04:00] VITALS: BP 119/76
[2017-06-11] MEDS: LABETALOL HCL 200 MG TABLET PO SCH ×3 (06:00→22:00)
[2017-06-11] MEDS: NITROGLYCERIN OINT 1 GM PACKET TP SCH ×4 (06:00→23:38)
[2017-06-11 06:04] LABS: BASOPHILS % (AUTO) 0.6 % (0.0-2.0); EOSINOPHILS # (AUTO) 0.2 K/uL (0.0-0.7); EOSINOPHILS % (AUTO) 4.3 % (0.0-7.0); HEMATOCRIT 29.3 % (36.7-47.1); HEMOGLOBIN 9.8 g/dL (12.5-16.3); LYMPHOCYTES # (AUTO) 1.1 K/uL (20.0-40.0); MEAN CORPUSCULAR HEMOGLOBIN 29.2 uug (23.8-33.4); MEAN CORPUSCULAR HGB CONC 33 g/dL (32.5-36.3); MEAN CORPUSCULAR VOLUME 87.3 fL (73.0-96.2); MONOCYTES # (AUTO) 0.4 K/uL (2.0-10.0); MONOCYTES % (AUTO) 9.2 % (0.0-11.0); NEUTROPHILS # (AUTO) 2.2 K/uL (1.8-8.9); NEUTROPHILS % (AUTO) 56.9 % (38.5-71.5); PLATELET COUNT (AUTO) 268 K/uL (152-348); RED BLOOD CELL COUNT(AUTO) 3.35 MIL/uL (4.06-5.63); WHITE BLOOD COUNT (AUTO) 3.9 K/uL (3.6-10.2)
[2017-06-11] MEDS: PANTOPRAZOLE SODIUM 40 MG TABLET.DR PO SCH (06:44)
[2017-06-11] MEDS: METOCLOPRAMIDE HCL 5 MG TABLET PO SCH ×3 (06:52→16:22)
[2017-06-11] MEDS: MORPHINE SULFATE 4 MG/1 ML DISP.SYRIN IV PRN ×2 (06:53→19:05)
[2017-06-11 07:57] LABS: BILIRUBIN,TOTAL 0.7 mg/dL (0.2-1.0); MAGNESIUM 2.3 mg/dL (1.8-2.4); POTASSIUM 4.5 mmol/L (3.5-5.1); TOTAL PROTEIN, SERUM 9.8 g/dL (6.4-8.2)
--- NOTE | 2017-06-11 08:00 | NUR ---
AWAKE ALERT AND ORIENTED X3, NO SS OF PAIN OR SOB. CONTINUE CURRENT TX PLAN
[2017-06-11 08:08] LABS: CREATININE 11.3 mg/dL (0.6-1.3); PHOSPHOROUS 8.5 mg/dL (2.5-4.9)
[2017-06-11] MEDS: FOLIC ACID/VITAMIN B COMP W-C TABLET PO SCH (09:17)
[2017-06-11] MEDS: PAROXETINE HCL 10 MG TABLET PO SCH (09:17)
[2017-06-11] MEDS: TIZANIDINE HCL 4 MG TABLET PO SCH ×2 (09:18→16:22)
[2017-06-11] MEDS: AMLODIPINE 5 MG TABLET PO SCH ×2 (09:18→21:07)
[2017-06-11] MEDS: CALCIUM ACETATE 667 MG CAPSULE PO SCH ×3 (09:18→16:22)
[2017-06-11] MEDS: BENAZEPRIL HCL 20 MG TABLET PO SCH (09:19)
[2017-06-11 11:13] VITALS: BP 115/67
--- NOTE | 2017-06-11 13:47 | NUR ---
RESTING IN BED NO SS OF DISTRESS
[2017-06-11 15:21] VITALS: BP 138/74
--- NOTE | 2017-06-11 17:28 | NUR ---
PATIENT CONTINUE TO REFUSE SOME OF HIS DAILY MEDS DR BOWERS IN SEE NOTES. SEEN BY GI HYPERION ESSBASE DEVELOPER FOR CONSULT SEE NOTES
[2017-06-11 20:17] VITALS: BP 134/82
--- NOTE | 2017-06-11 21:00 | NUR ---
patient denies any nausea,and requested to hold dinner tray at this times,stated pain improved.
[2017-06-12] MEDS: ONDANSETRON 4 MG/2 ML VIAL IV PRN (02:24)
[2017-06-12] MEDS: MORPHINE SULFATE 4 MG/1 ML DISP.SYRIN IV PRN ×2 (02:24→19:33)
--- NOTE | 2017-06-12 02:25 | NUR ---
PATIENT VOMITED 400ML OF UNDIGESTED FOOD,ZOFRAN 4 MG IV ADMIN,
[2017-06-12 05:32] VITALS: BP 131/85
[2017-06-12] MEDS: LABETALOL HCL 200 MG TABLET PO SCH ×3 (06:00→22:00)
[2017-06-12] MEDS: NITROGLYCERIN OINT 1 GM PACKET TP SCH ×3 (06:00→17:19)
[2017-06-12] MEDS: PANTOPRAZOLE SODIUM 40 MG TABLET.DR PO SCH (06:56)
[2017-06-12] MEDS: METOCLOPRAMIDE HCL 5 MG TABLET PO SCH ×3 (06:56→17:29)
[2017-06-12] MEDS: CALCIUM ACETATE 667 MG CAPSULE PO SCH ×3 (08:00→17:29)
--- NOTE | 2017-06-12 08:00 | NUR ---
PATIENT CONTINUE TO REFUSED MEDS C/O GI UPSET BUT NO VOMITING, CLOSELY OBSERVED. AWAITING HD
[2017-06-12] MEDS: TIZANIDINE HCL 4 MG TABLET PO SCH ×2 (09:00→17:29)
[2017-06-12] MEDS: FOLIC ACID/VITAMIN B COMP W-C TABLET PO SCH (09:00)
[2017-06-12] MEDS: AMLODIPINE 5 MG TABLET PO SCH ×2 (09:00→20:08)
[2017-06-12] MEDS: PAROXETINE HCL 10 MG TABLET PO SCH (09:00)
[2017-06-12] MEDS: BENAZEPRIL HCL 20 MG TABLET PO SCH (09:00)
--- NOTE | 2017-06-12 10:00 | NUR ---
HEMODIALYSIS STARTED AT BEDSIDE. CLOSELY MONITORED
[2017-06-12 11:42] VITALS: BP 124/80
--- NOTE | 2017-06-12 13:30 | NUR ---
HD COMPLETED FAIRLY TOLERATED. VS STABLE
[2017-06-12 15:13] VITALS: BP_SYST 108; BP_SYST 158; BP_DIAS 74; BP_DIAS 78
[2017-06-12 20:00] VITALS: BP 117/87
--- NOTE | 2017-06-12 20:00 | NUR ---
PATIENT IS AWAKE IN BED WATCHING TV. PAIN MEDS GIVEN AT THE START OF SHIFT REQUESTED BY PATIENT. NO C/O OF PAIN OR ANY ACUTE DISTRESS NOTED ON ASSESSMENT. BP WNL AT 117/87. SAFETY MEASURES IN PLACE, WILL CONTINUE TO MONITOR PATIENT
[2017-06-13] MEDS: ZOLPIDEM 5 MG TABLET PO PRN (00:53)
[2017-06-13 04:43] VITALS: BP 124/75
[2017-06-13] MEDS: NITROGLYCERIN OINT 1 GM PACKET TP SCH ×4 (06:00→17:08)
[2017-06-13] MEDS: PANTOPRAZOLE SODIUM 40 MG TABLET.DR PO SCH (06:10)
[2017-06-13] MEDS: LABETALOL HCL 200 MG TABLET PO SCH ×3 (06:12→22:00)
--- NOTE | 2017-06-13 06:21 | NUR ---
PATIENT SLEPT WELL THROUGH THE SHIFT. HE REFUSED ALL SCHEDULED BP MEDS, HE ONLY TOOK LABETALOL AT 6:00 A.M. EDUCATION PROVIDED ON EFFECT OF NOT TAKING BP MEDS. SAFETY MEASURES MAINTAINED AT ALL TIMES, ALL NEEDS MET ON THIS SHIFT
[2017-06-13] MEDS: METOCLOPRAMIDE HCL 5 MG TABLET PO SCH ×3 (06:31→17:40)
[2017-06-13] MEDS: MORPHINE SULFATE 4 MG/1 ML DISP.SYRIN IV PRN ×2 (06:45→12:45)
--- NOTE | 2017-06-13 07:25 | NUR ---
PATIENT RESTING COMFORTABLY IN BED AT THIS TIME, NO S/S OF DISTRESS, VITAL SIGNS STABLE, STABLE CONDITION. RECEIVED DIALYSIS YESTERDAY 2.2 LITERS OUT. NOTIFIED FROM PREVIOUS SHIFT THAT PATIENT HAS BEEN NON-COMPLIANT WITH MEDICATION REGIMEN, ESPECIALLY WITH BLOOD PRESSURE MANAGEMENT. WILL CONTINUE TO MONITOR BLOOD PRESSURE. POSSIBLE DISCHARGE TODAY. CALL LIGHT WITHIN REACH.
[2017-06-13] MEDS: CALCIUM ACETATE 667 MG CAPSULE PO SCH ×3 (08:00→17:00)
[2017-06-13] MEDS: BENAZEPRIL HCL 20 MG TABLET PO SCH (09:00)
[2017-06-13] MEDS: TIZANIDINE HCL 4 MG TABLET PO SCH ×2 (09:45→17:40)
[2017-06-13] MEDS: FOLIC ACID/VITAMIN B COMP W-C TABLET PO SCH (09:45)
[2017-06-13] MEDS: AMLODIPINE 5 MG TABLET PO SCH ×2 (09:45→21:00)
[2017-06-13] MEDS: PAROXETINE HCL 10 MG TABLET PO SCH (09:45)
[2017-06-13 11:40] VITALS: BP 118/78
[2017-06-13 12:08] VITALS: BP 118/66
[2017-06-13] MEDS: ONDANSETRON 4 MG/2 ML VIAL IV PRN (15:08)
[2017-06-13 15:27] VITALS: BP 100/71
[2017-06-13 15:28] VITALS: BP 131/61
[2017-06-13 20:00] VITALS: BP 106/72
--- NOTE | 2017-06-13 20:00 | NUR ---
PATIENT IS AWAKE IN BED WATCHING TV. NO S/S OF PAIN OR ACUTE DISTRESS ON ASSESSMENT. BP WNL, SAFETY MEASURES IN PLACE. WILL CONTINUE TO MONITOR PATIENT
[2017-06-14] MEDS: ONDANSETRON 4 MG/2 ML VIAL IV PRN ×2 (00:01→22:43)
[2017-06-14] MEDS: ZOLPIDEM 5 MG TABLET PO PRN (00:13)
[2017-06-14 04:36] VITALS: BP 116/71
[2017-06-14] MEDS: LABETALOL HCL 200 MG TABLET PO SCH ×3 (06:00→22:00)
[2017-06-14] MEDS: NITROGLYCERIN OINT 1 GM PACKET TP SCH ×4 (06:00→18:00)
[2017-06-14] MEDS: PANTOPRAZOLE SODIUM 40 MG TABLET.DR PO SCH (06:07)
[2017-06-14] MEDS: METOCLOPRAMIDE HCL 5 MG TABLET PO SCH ×3 (06:07→16:12)
--- NOTE | 2017-06-14 06:59 | NUR ---
PATIENT SLEPT WELL THROUGH THE SHIFT, HE REFUSED ALL HIS SCHEDULED A.M BP MEDS. PAIN MEDS GIVEN X1 ON THIS SHIFT. NO FURTHER CHANGES IN STATUS, BP WNL
[2017-06-14] MEDS: TIZANIDINE HCL 4 MG TABLET PO SCH ×2 (08:18→16:12)
[2017-06-14] MEDS: CALCIUM ACETATE 667 MG CAPSULE PO SCH ×3 (08:18→16:12)
[2017-06-14] MEDS: FOLIC ACID/VITAMIN B COMP W-C TABLET PO SCH (08:18)
[2017-06-14] MEDS: PAROXETINE HCL 10 MG TABLET PO SCH (08:18)
[2017-06-14] MEDS: AMLODIPINE 5 MG TABLET PO SCH ×2 (08:19→20:44)
[2017-06-14] MEDS: BENAZEPRIL HCL 20 MG TABLET PO SCH (08:19)
--- NOTE | 2017-06-14 12:15 | NUR ---
Patient s/p hemodialysis, tolerated well. Patient is alert, responsive, in no distress.
[2017-06-14 12:16] VITALS: BP 125/71
[2017-06-14] MEDS: MORPHINE SULFATE 4 MG/1 ML DISP.SYRIN IV PRN ×3 (12:24→22:37)
[2017-06-14 16:00] VITALS: BP 105/69
--- NOTE | 2017-06-14 18:25 | NUR ---
Patient is alert, in no distress, no c/o of SOB, chest pain, nausea/vomiting. Patient is s/p hemodialysis, AV shunt on right arm dressing intact, no s/s of bleeding. Patient has been refusing his blood pressure medications, patient stated "my blood pressure will drop down even lower". VS has been stable, SBP running between 105-125, DBP running between 69-80, HR between 68-76 throughout the shift, pt remains afebrile. Pain management as ordered. Safety measures in place, call light within reach. Will continue to monitor.
--- NOTE | 2017-06-14 19:30 | NUR ---
Received patient laying comfortably in bed. Patient is A/O x 4. No acute distress noted. No c/o pain or SOB. Safety initiated. Call light within reach. Room is kept clutter free. Bed in low and locked position. Will continue to monitor.
[2017-06-14 20:00] VITALS: BP 120/77
[2017-06-15] MEDS: ZOLPIDEM 5 MG TABLET PO PRN (00:59)
[2017-06-15] MEDS: LABETALOL HCL 200 MG TABLET PO SCH ×2 (06:00→14:15)
[2017-06-15] MEDS: NITROGLYCERIN OINT 1 GM PACKET TP SCH ×4 (06:00→17:33)
--- NOTE | 2017-06-15 06:00 | NUR ---
Pt in room alert awake in no acute distress. Denies any pain, headaches, or sob. Routine AM Nitro and Labetalol medication offered but pt refuses again and noncompliant for unknown reason. BP noted 125/72. Pt states he only wants Protonix. Call light within reach.
[2017-06-15 06:07] VITALS: BP 125/72
[2017-06-15] MEDS: PANTOPRAZOLE SODIUM 40 MG TABLET.DR PO SCH (06:12)
--- NOTE | 2017-06-15 07:00 | NUR ---
Received pt sleeping, easily arousable. No immediate pain, distress, discomfort or SOB.
[2017-06-15] MEDS: CALCIUM ACETATE 667 MG CAPSULE PO SCH ×3 (07:49→16:27)
[2017-06-15] MEDS: METOCLOPRAMIDE HCL 5 MG TABLET PO SCH ×3 (07:51→16:27)
[2017-06-15] MEDS: TIZANIDINE HCL 4 MG TABLET PO SCH ×2 (09:49→16:27)
[2017-06-15] MEDS: FOLIC ACID/VITAMIN B COMP W-C TABLET PO SCH (09:49)
[2017-06-15] MEDS: PAROXETINE HCL 10 MG TABLET PO SCH (09:49)
[2017-06-15] MEDS: AMLODIPINE 5 MG TABLET PO SCH (09:50)
[2017-06-15] MEDS: BENAZEPRIL HCL 20 MG TABLET PO SCH (09:50)
--- NOTE | 2017-06-15 09:53 | NUR ---
Pt compliant with morning medications
[2017-06-15 11:24] VITALS: BP 93/60
--- NOTE | 2017-06-15 11:36 | NUR ---
Pt refused Nitro-BID as scheduled and he refused Phoslo
[2017-06-15] MEDS ORDERED: MAGNESIUM HYDROXIDE 30 ML LIQUID UDC PO PRN (12:30)
[2017-06-15] MEDS: ONDANSETRON 4 MG/2 ML VIAL IV PRN (12:43)
--- NOTE | 2017-06-15 13:52 | NUR ---
Pt is in the RR. CERTIFIED PROSTHETIST/ORTHOTIST ordered stat KUB
[2017-06-15 15:22] VITALS: BP 112/63
--- NOTE | 2017-06-15 16:31 | NUR ---
Pt has been given a F/U appointment with Dr. Orona on . Pt has been given resources and referrals information regarding being homeless. All discharge and personal belonging signed for.
[2017-06-15 17:33] VITALS: BP 107/69
--- NOTE | 2017-06-15 18:55 | NUR ---
Pt states he is going to get ready. Will endorse to next shift pt has been discharged. Pt is under no immediate distress, discomfort, pain or SOB. Pt had a BM today. Pt had one time vomiting episode during this shift. Information given about resources and referrals. Pt is aware of appointment made for him
--- NOTE | 2017-06-15 19:20 | NUR ---
Removed pt's IV line and ID band. Informed pt to please F/O with primary Dr and F/O with he appointment. Pt is discharged with orders
== END 2017-06-15 19:28 | disposition home or self-care (01) | DRG 194 ==
LOC: ER 22:23 → TELE 06-09 00:20 → MED 06-10 14:03
PROVIDERS: ADMIT Internal Medicine; ATTEND Internal Medicine
PROC: 5A1D70Z Performance of Urinary Filtration, Intermittent, Less than 6 Hours Per Day (ICD-10-PCS; principal; 2017-06-09)
DX: I13.2 Hypertensive heart and chronic kidney disease with heart failure and with stage 5 chronic kidney disease, or end stage renal disease (principal); N18.6 End stage renal disease; K29.71 Gastritis, unspecified, with bleeding; E83.39 Other disorders of phosphorus metabolism; E87.5 Hyperkalemia; K31.84 Gastroparesis; D50.0 Iron deficiency anemia secondary to blood loss (chronic); F17.200 Nicotine dependence, unspecified, uncomplicated; D63.1 Anemia in chronic kidney disease; I50.33 Acute on chronic diastolic (congestive) heart failure; Z91.15 Patient's noncompliance with renal dialysis; Z99.2 Dependence on renal dialysis; I25.2 Old myocardial infarction; G89.29 Other chronic pain; Z87.01 Personal history of pneumonia (recurrent); Z79.899 Other long term (current) drug therapy; Z59.0 Homelessness; F12.90 Cannabis use, unspecified, uncomplicated; Z91.14 Patient's other noncompliance with medication regimen; I70.0 Atherosclerosis of aorta
CPT/HCPCS: 36415; 70030-TC; 71045; 74018; 83735; 84100; 85025; 85730; 90937; 93005; A4663; J0360; J0885; J2270; J2405; J3490; J8597

== ENCOUNTER 2017-06-23 05:43 | Inpatient (IN) | payer OTHER ==
[~2017-06-23] VITALS: Ht 170.2 cm; Wt 59.0 kg
[2017-06-23] MEDS ORDERED: HYDROMORPHONE 1 MG/1 ML DISP.SYRIN IV ONE (06:30)
[2017-06-23] MEDS ORDERED: ONDANSETRON 4 MG/2 ML VIAL IV ONE (06:30)
[2017-06-23] MEDS ORDERED: HYDROMORPHONE 2 MG/1 ML DISP.SYRIN ONE (06:34)
[2017-06-23] MEDS ORDERED: ONDANSETRON 4 MG/2 ML VIAL ONE (06:35)
[2017-06-23] MEDS ORDERED: CLONIDINE HCL 0.2 MG TABLET ONE (06:41)
[2017-06-23] MEDS ORDERED: CLONIDINE HCL 0.2 MG TABLET PO ONE (06:45)
[2017-06-23 06:50] LABS: BASOPHILS % (AUTO) 0.7 % (0.0-2.0); EOSINOPHILS # (AUTO) 0.3 K/uL (0.0-0.7); EOSINOPHILS % (AUTO) 6.2 % (0.0-7.0); HEMATOCRIT 25.4 % (36.7-47.1); HEMOGLOBIN 8.7 g/dL (12.5-16.3); LYMPHOCYTES # (AUTO) 1.6 K/uL (20.0-40.0); LYMPHOCYTES % (AUTO) 37.1 % (20.5-51.5); MEAN CORPUSCULAR HEMOGLOBIN 29.9 uug (23.8-33.4); MEAN CORPUSCULAR HGB CONC 34 g/dL (32.5-36.3); MEAN CORPUSCULAR VOLUME 87.4 fL (73.0-96.2); MONOCYTES # (AUTO) 0.4 K/uL (2.0-10.0); MONOCYTES % (AUTO) 9.1 % (0.0-11.0); NEUTROPHILS % (AUTO) 46.9 % (38.5-71.5); PLATELET COUNT (AUTO) 304 K/uL (152-348); RED BLOOD CELL COUNT(AUTO) 2.91 MIL/uL (4.06-5.63); WHITE BLOOD COUNT (AUTO) 4.2 K/uL (3.6-10.2)
[2017-06-23 06:58] LABS: BILIRUBIN,DIRECT 0.1 mg/dL (0.0-0.2); BILIRUBIN,TOTAL 0.5 mg/dL (0.2-1.0); POTASSIUM 4.4 mmol/L (3.5-5.1)
[2017-06-23 07:04] LABS: CREATININE 12.2 mg/dL (0.6-1.3)
--- NOTE | 2017-06-23 07:05 | NUR ---
critical lab value received from lab. reported to ARCELIA SILVESTRE
--- NOTE | 2017-06-23 07:17 | NUR ---
GAVE REPORT TO NOELLE ELIZALDE
--- NOTE | 2017-06-23 07:43 | NUR ---
PATIENT IS SLEEPING, AROUSES EASILY. WE ARE WORKING ON GETTING HIM ADMITTED TO THE HOSPITAL. PATIENT IS AWARE.
--- NOTE | 2017-06-23 08:06 | NUR ---
REPORT GIVEN TO HOMER RN. BP IS STILL ABOVE NORMAL LIMITS, MD AWARE.
[2017-06-23] MEDS ORDERED: hydrALAZINE HCL 20 MG/1 ML VIAL IV ONE (08:15)
--- NOTE | 2017-06-23 09:30 | NUR ---
Received Pt from ER. Shunt on left f/a. Pt's b/p elevated. Awaiting orders. Call light is within reach. Spoke with FE dialysis nurse for potential dialysis today.
[2017-06-23 10:02] VITALS: BP 163/99
[2017-06-23] MEDS ORDERED: MAGNESIUM HYDROXIDE 30 ML LIQUID UDC PO PRN (10:15)
[2017-06-23] MEDS ORDERED: MORPHINE SULFATE 4 MG/1 ML DISP.SYRIN IV PRN (11:30)
[2017-06-23] MEDS: BENAZEPRIL HCL 20 MG TABLET PO SCH (11:45)
[2017-06-23] MEDS: FOLIC ACID/VITAMIN B COMP W-C TABLET PO SCH (11:45)
[2017-06-23] MEDS: PANTOPRAZOLE SODIUM 40 MG TABLET.DR PO SCH (11:45)
[2017-06-23] MEDS: TIZANIDINE HCL 4 MG TABLET PO SCH ×2 (11:45→16:14)
[2017-06-23] MEDS: METOCLOPRAMIDE HCL 10 MG TABLET PO SCH ×2 (11:45→15:09)
[2017-06-23] MEDS: CALCIUM ACETATE 667 MG CAPSULE PO SCH ×2 (12:00→16:14)
[2017-06-23 12:13] VITALS: BP 178/103
[2017-06-23] MEDS ORDERED: HYDROMORPHONE 1 MG/1 ML DISP.SYRIN IV PRN (14:30)
[2017-06-23] MEDS ORDERED: EPOETIN ALFA 10,000 UNITS/ML VIAL SQ ONE (14:45)
[2017-06-23] MEDS: HYDROMORPHONE 2 MG/1 ML DISP.SYRIN IV PRN ×2 (14:57→21:23)
[2017-06-23] MEDS: AMLODIPINE 5 MG TABLET PO SCH ×2 (15:09→20:02)
[2017-06-23] MEDS: LABETALOL HCL 200 MG TABLET PO SCH ×2 (15:09→21:17)
[2017-06-23] MEDS: PAROXETINE HCL 10 MG TABLET PO SCH (15:09)
[2017-06-23 15:48] VITALS: BP 172/102
--- NOTE | 2017-06-23 18:58 | NUR ---
Pt had 2.5 liters out from dialysis. Pt's pain managed with dilaudid. Pt refused his am meds explained what the meds are for pt continues to refuse. Call light is within reach.
[2017-06-23] MEDS: ONDANSETRON 4 MG/2 ML VIAL IV PRN (19:33)
--- NOTE | 2017-06-23 20:00 | NUR ---
PATIENT AWAKE IN BED, HAD EPISODE OF EMESIS PRN NAUSEA MEDS GIVEN ORDERED. ASPIRATION PRECAUTION IN PLACE, HOB AT 35 DEGREES. PATIENT DENIES PAIN ON ASSESSMENT, SAFETY MEASURES IN PLACE. CALL LIGHT WITHIN PATIENT'S REACH
[2017-06-23 20:12] VITALS: BP 168/109
[2017-06-24] MEDS: HYDROMORPHONE 2 MG/1 ML DISP.SYRIN IV PRN ×3 (04:52→19:37)
[2017-06-24 05:30] VITALS: BP_SYST 136; BP_SYST 138; BP_DIAS 87
[2017-06-24] MEDS: METOCLOPRAMIDE HCL 10 MG TABLET PO SCH ×4 (06:16→16:48)
[2017-06-24] MEDS: PANTOPRAZOLE SODIUM 40 MG TABLET.DR PO SCH (06:17)
[2017-06-24] MEDS: LABETALOL HCL 200 MG TABLET PO SCH ×3 (06:20→21:32)
[2017-06-24] MEDS: ONDANSETRON 4 MG/2 ML VIAL IV PRN ×2 (06:34→19:42)
--- NOTE | 2017-06-24 07:05 | NUR ---
PATIENT SLEPT ON AND OFF THROUGH THE SHIFT, PAIN AND NAUSEA MEDS GIVEN X2 ON THIS SHIFT. NO ACUTE DISTRESS AT PRESENT. BP WNL, NO FURTHER CHANGES IN STATUS
--- NOTE | 2017-06-24 07:20 | NUR ---
pt received in bed sleeping call light with in reach no c/o pain noted
[2017-06-24 08:02] LABS: BASOPHILS % (AUTO) 0.5 % (0.0-2.0); EOSINOPHILS # (AUTO) 0.2 K/uL (0.0-0.7); EOSINOPHILS % (AUTO) 3.4 % (0.0-7.0); HEMATOCRIT 28.2 % (36.7-47.1); HEMOGLOBIN 9.7 g/dL (12.5-16.3); LYMPHOCYTES # (AUTO) 1.3 K/uL (20.0-40.0); LYMPHOCYTES % (AUTO) 29.1 % (20.5-51.5); MEAN CORPUSCULAR HEMOGLOBIN 30.2 uug (23.8-33.4); MEAN CORPUSCULAR HGB CONC 35 g/dL (32.5-36.3); MEAN CORPUSCULAR VOLUME 87.6 fL (73.0-96.2); MONOCYTES # (AUTO) 0.4 K/uL (2.0-10.0); MONOCYTES % (AUTO) 8.9 % (0.0-11.0); NEUTROPHILS # (AUTO) 2.6 K/uL (1.8-8.9); NEUTROPHILS % (AUTO) 58.1 % (38.5-71.5); PLATELET COUNT (AUTO) 344 K/uL (152-348); RED BLOOD CELL COUNT(AUTO) 3.22 MIL/uL (4.06-5.63); WHITE BLOOD COUNT (AUTO) 4.6 K/uL (3.6-10.2)
[2017-06-24] MEDS: TIZANIDINE HCL 4 MG TABLET PO SCH ×2 (08:17→16:47)
[2017-06-24] MEDS: PAROXETINE HCL 10 MG TABLET PO SCH (08:17)
[2017-06-24] MEDS: CALCIUM ACETATE 667 MG CAPSULE PO SCH ×4 (08:17→16:48)
[2017-06-24] MEDS: FOLIC ACID/VITAMIN B COMP W-C TABLET PO SCH (08:17)
[2017-06-24] MEDS: BENAZEPRIL HCL 20 MG TABLET PO SCH (08:19)
[2017-06-24] MEDS: AMLODIPINE 5 MG TABLET PO SCH ×2 (08:19→21:00)
[2017-06-24 08:21] LABS: BILIRUBIN,TOTAL 0.8 mg/dL (0.2-1.0); MAGNESIUM 2.3 mg/dL (1.8-2.4); POTASSIUM 4.8 mmol/L (3.5-5.1); TOTAL PROTEIN, SERUM 9.1 g/dL (6.4-8.2)
[2017-06-24 08:29] LABS: CREATININE 11.1 mg/dL (0.6-1.3)
[2017-06-24 11:10] VITALS: BP 139/82
[2017-06-24 15:07] VITALS: BP 137/90
--- NOTE | 2017-06-24 19:35 | NUR ---
PT RECEIVED IN BED, AWAKE. A/OX3. ABLE TO MAKE NEEDS KNOWN. V/S STABLE. IN NO ACUTE DISTRESS. PT C/O LOWER LEG/MUSCLE ACHES 10/09 AT THIS TIME. ON RA, TOLERATING WELL. AFEBRILE. PT ALSO C/O NAUSEA, REQUEST ZOFRAN. IV INTACT AND PATENT, HEP-LOCKED. VLADISLAV SHUNT DRESSING C/D/I, THRILL FELT, BRUIT AUSCULTATED. SAFETY MEASURES IMPLEMENTED. CALL LIGHT WITHIN REACH.
[2017-06-24 20:00] VITALS: BP 127/81
[2017-06-24] MEDS ORDERED: ZOLPIDEM 5 MG TABLET PO PRN (22:45)
--- NOTE | 2017-06-24 23:05 | NUR ---
PT C/O BEING UNABLE TO SLEEP. REQUESTS SLEEPING MEDICATION. MD JAMI HOPE AWARE. AMBIEN ADMINISTERED PER MD ORDER. WILL CONT TO MONITOR.
[2017-06-25 04:10] VITALS: BP 140/86
[2017-06-25] MEDS: ONDANSETRON 4 MG/2 ML VIAL IV PRN (05:10)
[2017-06-25] MEDS: HYDROMORPHONE 2 MG/1 ML DISP.SYRIN IV PRN (05:11)
--- NOTE | 2017-06-25 06:00 | NUR ---
END OF SHIFT NOTES. PT SLEPT WELL THROUGHOUT SHIFT. BP WNL. ADMINISTERED PAIN MEDICATION PER MD ORDER. NAUSEA CEASED. COMPLIANT WITH ALL CARE. SAFETY MAINTAINED. CALL LIGHT WITHIN REACH.
[2017-06-25] MEDS: METOCLOPRAMIDE HCL 10 MG TABLET PO SCH ×2 (06:30→11:30)
[2017-06-25] MEDS: PANTOPRAZOLE SODIUM 40 MG TABLET.DR PO SCH (06:31)
[2017-06-25] MEDS: LABETALOL HCL 200 MG TABLET PO SCH ×2 (06:31→14:00)
[2017-06-25] MEDS: FOLIC ACID/VITAMIN B COMP W-C TABLET PO SCH (08:23)
[2017-06-25] MEDS: BENAZEPRIL HCL 20 MG TABLET PO SCH (08:23)
[2017-06-25] MEDS: CALCIUM ACETATE 667 MG CAPSULE PO SCH ×2 (08:23→12:00)
[2017-06-25] MEDS: TIZANIDINE HCL 4 MG TABLET PO SCH (08:23)
[2017-06-25] MEDS: AMLODIPINE 5 MG TABLET PO SCH (08:24)
[2017-06-25] MEDS: PAROXETINE HCL 10 MG TABLET PO SCH (08:24)
[2017-06-25 11:03] VITALS: BP 128/85
[2017-06-25 15:10] VITALS: BP 127/81
--- NOTE | 2017-06-25 15:41 | NUR ---
D/C ORDERS RECEIVED NOTED AND CARRIED OUT,D/C HEPLOCK PER MD ORDERS.D/C INSTRUCTION AND EDUCATION GIVEN TO THE PT,PT VERBALIZED UNDERSTANDING ALL THE INSTRUCTION,PT LEFT THE FACILITY VIA PRIVATE CAR IN STABLE CONDITION.
== END 2017-06-25 15:45 | disposition home or self-care (01) | DRG 194 ==
LOC: ER 05:43 → TELE 08:53 → MED 17:45
PROVIDERS: ADMIT Internal Medicine; ATTEND Internal Medicine
PROC: 5A1D70Z Performance of Urinary Filtration, Intermittent, Less than 6 Hours Per Day (ICD-10-PCS; principal; 2017-06-23)
DX: I13.2 Hypertensive heart and chronic kidney disease with heart failure and with stage 5 chronic kidney disease, or end stage renal disease (principal); N18.6 End stage renal disease; K29.71 Gastritis, unspecified, with bleeding; E83.39 Other disorders of phosphorus metabolism; G89.4 Chronic pain syndrome; F17.200 Nicotine dependence, unspecified, uncomplicated; D63.1 Anemia in chronic kidney disease; D50.0 Iron deficiency anemia secondary to blood loss (chronic); I50.33 Acute on chronic diastolic (congestive) heart failure; Z99.2 Dependence on renal dialysis; Z91.15 Patient's noncompliance with renal dialysis; I25.2 Old myocardial infarction; Z91.14 Patient's other noncompliance with medication regimen; K21.9 Gastro-esophageal reflux disease without esophagitis
CPT/HCPCS: 36415; 70030-TC; 71045; 83735; 84100; 85025; 85730; 90937; 93005; A4663; J0360; J0885; J1170; J2270; J2405; J8597

== ENCOUNTER 2017-06-27 07:26 | Inpatient (IN) | payer OTHER ==
[~2017-06-27] VITALS: Ht 170.2 cm; Wt 59.6 kg
--- NOTE | 2017-06-27 07:33 | NUR ---
PT IS IN ROOM #2B. DR MCCABE EVALUATED THE PT.
[2017-06-27] MEDS ORDERED: CLONIDINE HCL 0.1 MG TABLET PO ONE (07:45)
[2017-06-27 08:05] LABS: BASOPHILS % (AUTO) 0.7 % (0.0-2.0); EOSINOPHILS # (AUTO) 0.3 K/uL (0.0-0.7); EOSINOPHILS % (AUTO) 5.9 % (0.0-7.0); HEMATOCRIT 26.8 % (36.7-47.1); HEMOGLOBIN 9.2 g/dL (12.5-16.3); LYMPHOCYTES # (AUTO) 1.5 K/uL (20.0-40.0); LYMPHOCYTES % (AUTO) 30.5 % (20.5-51.5); MEAN CORPUSCULAR HEMOGLOBIN 30.2 uug (23.8-33.4); MEAN CORPUSCULAR HGB CONC 35 g/dL (32.5-36.3); MEAN CORPUSCULAR VOLUME 87.5 fL (73.0-96.2); MONOCYTES # (AUTO) 0.5 K/uL (2.0-10.0); MONOCYTES % (AUTO) 10.8 % (0.0-11.0); NEUTROPHILS # (AUTO) 2.6 K/uL (1.8-8.9); NEUTROPHILS % (AUTO) 52.1 % (38.5-71.5); PLATELET COUNT (AUTO) 276 K/uL (152-348); RED BLOOD CELL COUNT(AUTO) 3.06 MIL/uL (4.06-5.63); WHITE BLOOD COUNT (AUTO) 4.9 K/uL (3.6-10.2)
[2017-06-27] MEDS ORDERED: CLONIDINE HCL 0.1 MG TABLET ONE (08:07)
[2017-06-27 08:10] LABS: POTASSIUM 4.1 mmol/L (3.5-5.1)
[2017-06-27] MEDS ORDERED: HYDROCODONE/APAP 5-325MG TABLET ONE (08:11)
[2017-06-27] MEDS ORDERED: HYDROCODONE/APAP 5-325MG TABLET PO ONE (08:15)
[2017-06-27 08:16] LABS: BILIRUBIN,DIRECT 0.1 mg/dL (0.0-0.2); BILIRUBIN,TOTAL 0.6 mg/dL (0.2-1.0); TOTAL PROTEIN, SERUM 9.9 g/dL (6.4-8.2)
[2017-06-27] MEDS ORDERED: LORAZEPAM 1 MG TABLET ONE (09:04)
[2017-06-27] MEDS ORDERED: LORAZEPAM 0.5 MG TABLET PO ONE (09:15)
--- NOTE | 2017-06-27 09:16 | NUR ---
REPORT WAS GIVEN TO NUTRITION CLUB AMBASSADOR. PT WAS TRANSFERED TO ROOM #224.
[2017-06-27 10:00] VITALS: BP 162/105
--- NOTE | 2017-06-27 10:00 | NUR ---
NEW ADMISSION RECEIVED FROM ER VIA [facility] PATIENT IS AMBULATORY AND INDEPENDENT WITH ADLS. ALERT AND ORIENTED. IV ACCESS ON THE RIGHT FOREARM, AV FISTULA ON THE LEFT FOREARM, LEFT ARM PREC OBSERVED AT ALL TIMES. NO ACUTE DISTRESS AT THIS TIME. CALLED AND PAGED DR. ALVARES FOR ORDERS, AWAITING CALLBACK. NURSING ASSESSMENTS TO BE DONE. WILL CONTINUE TO MONITOR CLOSELY.
[2017-06-27] MEDS ORDERED: AMLO5TAB2 PO (11:19)
[2017-06-27] MEDS ORDERED: PARO10TA86 PO (11:19)
[2017-06-27] MEDS ORDERED: LABE200T PO (11:19)
[2017-06-27] MEDS: METOCLOPRAMIDE HCL 10 MG TABLET PO SCH ×2 (11:30→16:50)
[2017-06-27] MEDS: BENAZEPRIL HCL 20 MG TABLET PO SCH ×2 (11:34→12:41)
[2017-06-27 11:44] VITALS: BP 152/87
[2017-06-27] MEDS: AMLODIPINE 5 MG TABLET PO SCH ×3 (11:45→16:02)
[2017-06-27] MEDS: CALCIUM ACETATE 667 MG CAPSULE PO SCH ×3 (12:40→16:01)
[2017-06-27] MEDS: LABETALOL HCL 200 MG TABLET PO SCH ×3 (12:41→16:02)
[2017-06-27] MEDS: NEPRO (VANILLA) 237 ML CAN PO SCH ×2 (12:42→16:51)
[2017-06-27 15:41] VITALS: BP 160/92
[2017-06-27] MEDS: ACETAMINOPHEN ES 500 MG TABLET PO PRN (16:01)
[2017-06-27] MEDS: TIZANIDINE HCL 4 MG TABLET PO SCH (16:03)
--- NOTE | 2017-06-27 18:58 | NUR ---
PATIENT IN STABLE CONDITION ASLEEP, COMPLAINED OF PAIN EARLIER, CALLED DR. LEON RECEIVED ORDERS FOR TYLENOL 1000MG Q6HR PRN. PATIENT SLEPT MOST OF THE DAY. ALL NEEDS ATTENDED AND ANTICIPATED. WILL CONTINUE TO MONITOR CLOSELY.
[2017-06-27 20:00] VITALS: BP 160/97
--- NOTE | 2017-06-27 21:00 | NUR ---
Received patient awake in bed no SOB denies chest pain, tele shows sinus rhythm on the monitor. Complaining of generalized pain but refused Tylenol p.o & demanding for a strong pain medication. Called Dr. Laguna for orders.
[2017-06-27] MEDS: HYDROCODONE/APAP 5-325MG TABLET PO PRN (22:10)
[2017-06-28] VITALS: BP 164/103
[2017-06-28 01:38] LABS: BILIRUBIN,TOTAL 0.5 mg/dL (0.2-1.0); MAGNESIUM 2.2 mg/dL (1.8-2.4); POTASSIUM 5.1 mmol/L (3.5-5.1); TOTAL PROTEIN, SERUM 8.8 g/dL (6.4-8.2)
[2017-06-28 01:49] LABS: CREATININE 14.2 mg/dL (0.6-1.3)
--- NOTE | 2017-06-28 02:00 | NUR ---
Patient remains awake, asking for pain medication. Tylenol ES 1,00mg po given.
[2017-06-28] MEDS: ACETAMINOPHEN ES 500 MG TABLET PO PRN (02:15)
[2017-06-28 04:00] VITALS: BP 179/101
[2017-06-28] MEDS: PANTOPRAZOLE SODIUM 40 MG TABLET.DR PO SCH (05:19)
[2017-06-28] MEDS: HYDROCODONE/APAP 5-325MG TABLET PO PRN (05:19)
[2017-06-28] MEDS: METOCLOPRAMIDE HCL 5 MG TABLET PO SCH ×3 (05:19→16:30)
--- NOTE | 2017-06-28 06:34 | NUR ---
Fairly rested, BP elevated, patient refused to take his morning BP meds. Medicated for pain PRN. No acute resp distress. For hemodialysis today.
[2017-06-28] MEDS: NEPRO (VANILLA) 237 ML CAN PO SCH ×3 (08:00→17:00)
--- NOTE | 2017-06-28 08:00 | NUR ---
Discussed Plan of care with patient re: fall precaution, b/p management. Pt agreeable with plan of care. marketing research analyst to see pt later. Pt agreeable with plan of care. Call light is within reach.
[2017-06-28] MEDS ORDERED: LIDOCAINE HCL 1% 20 ML VIAL IJ ONE (08:45)
[2017-06-28] MEDS: FOLIC ACID/VITAMIN B COMP W-C TABLET PO SCH (09:00)
[2017-06-28] MEDS: PAROXETINE HCL 10 MG TABLET PO SCH (09:00)
[2017-06-28] MEDS: CALCIUM ACETATE 667 MG CAPSULE PO SCH ×3 (09:00→17:00)
[2017-06-28 10:17] LABS: URIC ACID 5.6 mg/dL (3.5-7.2)
[2017-06-28 11:22] LABS: THYROID STIMULATING HORMONE 0.471 mIU/mL (0.358-3.740)
[2017-06-28 11:50] VITALS: BP 146/101
[2017-06-28] MEDS: AMLODIPINE 5 MG TABLET PO SCH ×2 (12:31→17:00)
[2017-06-28] MEDS: BENAZEPRIL HCL 20 MG TABLET PO SCH (12:31)
[2017-06-28] MEDS: LABETALOL HCL 200 MG TABLET PO SCH ×3 (12:31→17:00)
[2017-06-28] MEDS: TIZANIDINE HCL 4 MG TABLET PO SCH ×2 (12:32→17:03)
--- NOTE | 2017-06-28 13:00 | NUR ---
Notified Dr Hall pt refused to have bone marrow biopsy. Per Dr Hall states that she will talk to pt tomorrow. Call light is within reach.
[2017-06-28 15:50] VITALS: BP 118/90
--- NOTE | 2017-06-28 18:30 | NUR ---
Pt is in no acute distress. Pt refused his medications explained purpose of meds but continues to refuse. Plan of care effective. health and wellness instructor took out 3000cc of fluids earlier.
--- NOTE | 2017-06-28 19:30 | NUR ---
Received patient laying comfortably in bed. No acute distress noted. No c/o pain or SOB. A/O x 4. TELE SR. Noted AV shunt on left and IV on the right FA, patent and intact. Safety initiated. Call light within reach. Room is kept clutter free. Will closely monitor.
[2017-06-28 20:00] VITALS: BP 126/79
[2017-06-29] VITALS: BP 130/79
[2017-06-29] MEDS: HYDROCODONE/APAP 5-325MG TABLET PO PRN ×2 (00:05→05:29)
[2017-06-29 05:32] VITALS: BP 163/97
--- NOTE | 2017-06-29 06:38 | NUR ---
Patient slept poorly last night. A/o x 4. No acute distress noted. IV site and AV shunt on the left FA patent and intact. TELE SR. C/o generalized pain, meds given with no adverse effect. Ambulatory. Skin intact. Room was kept clutter free. Bed is in low and locked position. All meds given as ordered. All needs met.
[2017-06-29] MEDS: METOCLOPRAMIDE HCL 5 MG TABLET PO SCH ×3 (06:41→12:09)
[2017-06-29] MEDS: PANTOPRAZOLE SODIUM 40 MG TABLET.DR PO SCH (06:41)
[2017-06-29] MEDS: FOLIC ACID/VITAMIN B COMP W-C TABLET PO SCH (09:01)
[2017-06-29] MEDS: LABETALOL HCL 200 MG TABLET PO SCH ×3 (09:01→16:51)
[2017-06-29] MEDS: AMLODIPINE 5 MG TABLET PO SCH ×2 (09:02→16:48)
[2017-06-29] MEDS: BENAZEPRIL HCL 20 MG TABLET PO SCH (09:02)
[2017-06-29] MEDS: TIZANIDINE HCL 4 MG TABLET PO SCH ×2 (09:03→16:52)
[2017-06-29] MEDS: CALCIUM ACETATE 667 MG CAPSULE PO SCH ×3 (09:03→16:50)
[2017-06-29] MEDS: PAROXETINE HCL 10 MG TABLET PO SCH (09:03)
[2017-06-29] MEDS: NEPRO (VANILLA) 237 ML CAN PO SCH ×3 (09:04→16:48)
[2017-06-29] MEDS: HYDROMORPHONE 2 MG/1 ML DISP.SYRIN IV PRN ×3 (09:14→20:28)
[2017-06-29] MEDS ORDERED: HYDROMORPHONE 1 MG/1 ML DISP.SYRIN IV PRN (09:15)
[2017-06-29 11:49] VITALS: BP 148/85
--- NOTE | 2017-06-29 13:00 | NUR ---
Pt refused Dialysis today. Discussed risk of refusing his dialysis and benefits of getting his dialysis. Pt continues to refuse dialysis today. Pt refused his medications as well. spoke with pt the medications purposes and risk of not taking his routine med. -- pt continues to refuse his medication. Call light is within reach.
[2017-06-29 15:57] VITALS: BP 136/83
--- NOTE | 2017-06-29 19:20 | NUR ---
PATIENT SEEN BY DR.CHOU ALVAREZ WAS D/C,PATIENT ALERT,ORIENTED BP 148/91,PATIENT HAS BEEN REFUSING HIS MEDICATIONS,MD AWARE,NO SOB,NO CP NOTED,PATIENT APPEARS ANXIOUS,BONE MARROW SITE WITH BANDAGE ON DRY AND INTACT NO BLEEDING NOTED.
[2017-06-29 20:00] VITALS: BP 148/91
--- NOTE | 2017-06-30 00:30 | NUR ---
ZOFRAN 4 MG IV ADMIN FOR N/V.
[2017-06-30] MEDS: ONDANSETRON 4 MG/2 ML VIAL IV PRN ×4 (00:38→23:08)
[2017-06-30] MEDS: ZOLPIDEM 5 MG TABLET PO PRN (04:10)
[2017-06-30] MEDS: AMLODIPINE 5 MG TABLET PO SCH ×2 (04:11→10:30)
[2017-06-30] MEDS: HYDROMORPHONE 2 MG/1 ML DISP.SYRIN IV PRN ×4 (04:34→20:42)
--- NOTE | 2017-06-30 04:43 | NUR ---
bp 165/89,patient agree to take Norvasc 5 mg po scheduled
--- NOTE | 2017-06-30 05:00 | NUR ---
PATIENT ABLE TO SLEEP AT THIS TIMES,DOES NOT WANT SLEEPING MED EARLY ,STATED NOT FEELS GOOD AND FEELS NAUSEA EVEN NAUSEA MED GIVEN,PAIN MED PRN GIVEN PER PATIENT REQUESTED.
[2017-06-30 05:08] VITALS: BP 165/98
[2017-06-30] MEDS: PANTOPRAZOLE SODIUM 40 MG TABLET.DR PO SCH (06:36)
[2017-06-30] MEDS: METOCLOPRAMIDE HCL 5 MG TABLET PO SCH ×3 (06:36→16:30)
--- NOTE | 2017-06-30 08:00 | NUR ---
No bleeding noted on pt's bone marrow site on left lower back still covered with band aid. Pt is in no acute distress. Call light is within reach. Pt denies any c/o pain. Pt is for dialysis today per DR kern.
[2017-06-30 08:06] LABS: ALBUMIN 3.9 g/dL (2.9-4.4); ALPHA-1-GLOBULIN 0.2 g/dL (0.0-0.4); ALPHA-2-GLOBULIN 0.5 g/dL (0.4-1.0); BETA GLOBULIN 0.7 g/dL (0.7-1.3); GAMMA GLOBULIN 2.6 g/dL (0.4-1.8); M-SPIKE 2.4 g/dL (Not Observed)
[2017-06-30] MEDS: TIZANIDINE HCL 4 MG TABLET PO SCH ×2 (10:29→16:30)
[2017-06-30] MEDS: BENAZEPRIL HCL 20 MG TABLET PO SCH (10:29)
[2017-06-30] MEDS: CALCIUM ACETATE 667 MG CAPSULE PO SCH ×3 (10:29→16:30)
[2017-06-30] MEDS: LABETALOL HCL 200 MG TABLET PO SCH ×3 (10:30→16:30)
[2017-06-30] MEDS: FOLIC ACID/VITAMIN B COMP W-C TABLET PO SCH (10:30)
[2017-06-30] MEDS: PAROXETINE HCL 10 MG TABLET PO SCH (10:30)
[2017-06-30] MEDS: NEPRO (VANILLA) 237 ML CAN PO SCH ×3 (10:39→16:30)
[2017-06-30 11:13] VITALS: BP 172/98
[2017-06-30 15:25] VITALS: BP 162/96
--- NOTE | 2017-06-30 19:20 | NUR ---
Received pt lying in bed. AOx4. In no acute distress. Denies any SOB. Pain on spine area tolerable at this time. O2 sat at 97% on RA. IV site on RFA, intact and patent. Safety measure initiated and call santos within reach.
[2017-06-30 20:48] VITALS: BP 144/97
[2017-07-01] MEDS: HYDROMORPHONE 2 MG/1 ML DISP.SYRIN IV PRN ×2 (00:29→04:35)
[2017-07-01] MEDS: ZOLPIDEM 5 MG TABLET PO PRN (02:05)
[2017-07-01] MEDS: ONDANSETRON 4 MG/2 ML VIAL IV PRN (04:41)
[2017-07-01 05:04] VITALS: BP 141/95
[2017-07-01 05:35] LABS: BASOPHILS % (AUTO) 0.7 % (0.0-2.0); EOSINOPHILS # (AUTO) 0.2 K/uL (0.0-0.7); EOSINOPHILS % (AUTO) 5.8 % (0.0-7.0); HEMATOCRIT 31.8 % (36.7-47.1); HEMOGLOBIN 10.7 g/dL (12.5-16.3); LYMPHOCYTES # (AUTO) 1.4 K/uL (20.0-40.0); LYMPHOCYTES % (AUTO) 34.2 % (20.5-51.5); MEAN CORPUSCULAR HEMOGLOBIN 29.7 uug (23.8-33.4); MEAN CORPUSCULAR HGB CONC 34 g/dL (32.5-36.3); MEAN CORPUSCULAR VOLUME 87.9 fL (73.0-96.2); MONOCYTES # (AUTO) 0.4 K/uL (2.0-10.0); MONOCYTES % (AUTO) 10.5 % (0.0-11.0); NEUTROPHILS % (AUTO) 48.8 % (38.5-71.5); PLATELET COUNT (AUTO) 283 K/uL (152-348); RED BLOOD CELL COUNT(AUTO) 3.62 MIL/uL (4.06-5.63); WHITE BLOOD COUNT (AUTO) 4.1 K/uL (3.6-10.2)
[2017-07-01 05:56] LABS: BILIRUBIN,TOTAL 0.5 mg/dL (0.2-1.0); MAGNESIUM 2.9 mg/dL (1.8-2.4); POTASSIUM 5.7 mmol/L (3.5-5.1); TOTAL PROTEIN, SERUM 10.4 g/dL (6.4-8.2)
--- NOTE | 2017-07-01 06:00 | NUR ---
Received report fro critical lab values for BUN, Creatine and Phosphorus from [employer]. Informed Doctor Darcie Galicia Awaiting for reply.
[2017-07-01 06:01] LABS: CREATININE 13.5 mg/dL (0.6-1.3); PHOSPHOROUS 8.6 mg/dL (2.5-4.9)
--- NOTE | 2017-07-01 06:17 | NUR ---
Spoke to Doctor Galicia and discuss critical lab values for BUN, Creatine and Phosphorus. Informed DOctor that pt BUN and Creatinine trending down. No new order given.
--- NOTE | 2017-07-01 06:23 | NUR ---
AOx4. In no acute distress. Denies any SOB. Pain on spine area tolerable at this time. O2 sat at 96% on RA. IV site on RFA, intact and patent. needs attended to and met. Safety measure maintained and call santos within reach.
[2017-07-01] MEDS: PANTOPRAZOLE SODIUM 40 MG TABLET.DR PO SCH (06:28)
[2017-07-01] MEDS: METOCLOPRAMIDE HCL 5 MG TABLET PO SCH ×2 (06:30→11:30)
--- NOTE | 2017-07-01 07:40 | NUR ---
PATIENT RESTING COMFORTABLY IN BED, NO S/S OF DISTRESS. NO COMPLAINTS OF PAIN VERBALIZED BY PATIENT AT THIS TIME. A/OX4. CALL LIGHT WITHIN REACH. BED IN LOCKED/LOW POSITION, SIDE RAILS UPX2. BLOOD PRESSURE MANAGEMENT WILL BE PROVIDED.
[2017-07-01] MEDS: NEPRO (VANILLA) 237 ML CAN PO SCH ×2 (08:27→12:50)
[2017-07-01] MEDS: AMLODIPINE 5 MG TABLET PO SCH (08:29)
[2017-07-01] MEDS: CALCIUM ACETATE 667 MG CAPSULE PO SCH ×2 (08:29→12:50)
[2017-07-01] MEDS: LABETALOL HCL 200 MG TABLET PO SCH ×2 (08:30→13:00)
[2017-07-01] MEDS: PAROXETINE HCL 10 MG TABLET PO SCH (08:30)
[2017-07-01] MEDS: TIZANIDINE HCL 4 MG TABLET PO SCH (08:30)
[2017-07-01] MEDS: BENAZEPRIL HCL 20 MG TABLET PO SCH (08:30)
[2017-07-01] MEDS: FOLIC ACID/VITAMIN B COMP W-C TABLET PO SCH (08:31)
[2017-07-01 11:05] VITALS: BP 134/85
[2017-07-01 15:10] VITALS: BP 124/70
--- NOTE | 2017-07-01 17:45 | NUR ---
PATIENT DISCHARGED AT THIS TIME IN STABLE CONDITION. PATIENT HAD DIALYSIS TODAY, HAD 1.1 LITERS TAKEN OUT. WAS NOT ABLE TO TOLERATE FULL DIALYSIS GOAL. BLOOD PRESSURE 120/80. DISCHARGE ORDERS ALREADY PLACED BY MD. SPECIFIC ORDERS INDICATED THAT PATIENT WILL BE DISCHARGED AFTER DIALYSIS. STABLE CONDITION, NO S/S OF DISTRESS. VITAL SIGNS STABLE. DISCHARGE INSTRUCTIONS/EDUCATION PROVIDED. DISCHARGE PACKET GIVEN TO PATIENT. SIGNED. EXTRA COPY PLACED IN CHART. BELONGINGS RETURNED, INCLUDING PATIENT'S KNIFE THAT WAS LOCKED INSIDE CABINET. ID BAND TAKEN OFF, IV-LINE DISCONNECTED. PATIENT LEFT HOSPITAL FLOOR IN SAFE CONDITION.
== END 2017-07-01 16:40 | disposition home or self-care (01) | DRG 691 ==
LOC: ER 07:28 → TELE 09:28 → MED 06-29 20:28
PROVIDERS: ADMIT Internal Medicine; ATTEND Internal Medicine
PROC: 5A1D70Z Performance of Urinary Filtration, Intermittent, Less than 6 Hours Per Day (ICD-10-PCS; principal; 2017-06-28)
PROC: 07DR3ZX Extraction of Iliac Bone Marrow, Percutaneous Approach, Diagnostic (ICD-10-PCS; 2017-06-29)
DX: C90.00 Multiple myeloma not having achieved remission (principal); N18.6 End stage renal disease; I13.11 Hypertensive heart and chronic kidney disease without heart failure, with stage 5 chronic kidney disease, or end stage renal disease; Z99.2 Dependence on renal dialysis; K21.9 Gastro-esophageal reflux disease without esophagitis; G89.4 Chronic pain syndrome; F41.9 Anxiety disorder, unspecified; F12.90 Cannabis use, unspecified, uncomplicated; F17.200 Nicotine dependence, unspecified, uncomplicated; M25.562 Pain in left knee; K29.70 Gastritis, unspecified, without bleeding; D63.8 Anemia in other chronic diseases classified elsewhere; Z79.899 Other long term (current) drug therapy; F41.0 Panic disorder [episodic paroxysmal anxiety]; E87.5 Hyperkalemia; F51.05 Insomnia due to other mental disorder; I70.0 Atherosclerosis of aorta; R74.8 Abnormal levels of other serum enzymes; Z87.01 Personal history of pneumonia (recurrent); Z91.15 Patient's noncompliance with renal dialysis; Z91.19 Patient's noncompliance with other medical treatment and regimen
CPT/HCPCS: 36415; 70030-TC; 71045; 82747; 82784; 83010; 83550; 83615; 83735; 84100; 84155; 84165; 84443; 84550; 85014; 85025; 85651; 85730; 86334; 90937; 93005; A4663; A9150; J1170; J2405; J3490; J8597

== ENCOUNTER 2017-07-07 08:50 | Inpatient (IN) | payer OTHER ==
[~2017-07-07] VITALS: Ht 170.2 cm; Wt 60.5 kg
[~2017-07-07 08:50] MED LIST changes: +LABE200T PO; -LABE200T8 PO; -PARO10TA26 PO; +PARO10TA86 PO
--- NOTE | 2017-07-07 09:19 | NUR ---
PT IS IN ROOM #2A. DR VAZ EVALUATED THE PT.
[2017-07-07] MEDS ORDERED: MORPHINE SULFATE 4 MG/1 ML DISP.SYRIN IV ONE (09:20)
[2017-07-07] MEDS ORDERED: NITROGLYCERIN 0.4 MG/TAB BOTTLE SL ONE ×2 (09:20→09:29)
[2017-07-07] MEDS ORDERED: LABETALOL HCL 100 MG TABLET PO ONE (09:23)
[2017-07-07] MEDS ORDERED: ONDANSETRON 4 MG/2 ML VIAL ONE (09:29)
[2017-07-07] MEDS ORDERED: MORPHINE SULFATE 4 MG/1 ML DISP.SYRIN ONE (09:29)
[2017-07-07] MEDS ORDERED: ONDANSETRON IV *ER 4 MG/2 ML VIAL IV ONE (09:30)
[2017-07-07 09:43] LABS: BASOPHILS % (AUTO) 0.4 % (0.0-2.0); EOSINOPHILS # (AUTO) 0.2 K/uL (0.0-0.7); EOSINOPHILS % (AUTO) 3.6 % (0.0-7.0); HEMATOCRIT 31.4 % (36.7-47.1); HEMOGLOBIN 10.7 g/dL (12.5-16.3); LYMPHOCYTES # (AUTO) 1.4 K/uL (20.0-40.0); MEAN CORPUSCULAR HEMOGLOBIN 29.9 uug (23.8-33.4); MEAN CORPUSCULAR HGB CONC 34 g/dL (32.5-36.3); MEAN CORPUSCULAR VOLUME 87.9 fL (73.0-96.2); MONOCYTES # (AUTO) 0.5 K/uL (2.0-10.0); MONOCYTES % (AUTO) 9.9 % (0.0-11.0); NEUTROPHILS # (AUTO) 2.6 K/uL (1.8-8.9); NEUTROPHILS % (AUTO) 56.1 % (38.5-71.5); PLATELET COUNT (AUTO) 250 K/uL (152-348); RED BLOOD CELL COUNT(AUTO) 3.57 MIL/uL (4.06-5.63); WHITE BLOOD COUNT (AUTO) 4.6 K/uL (3.6-10.2)
[2017-07-07] MEDS ORDERED: diphenhydrAMINE 50 MG/1 ML VIAL IV ONE (09:45)
[2017-07-07] MEDS ORDERED: LABETALOL HCL 100 MG TABLET ONE (09:46)
[2017-07-07] MEDS ORDERED: diphenhydrAMINE 50 MG/1 ML VIAL ONE (09:46)
[2017-07-07 09:57] LABS: POTASSIUM 3.8 mmol/L (3.5-5.1)
[2017-07-07 10:02] LABS: CREATININE 9.6 mg/dL (0.6-1.3)
[2017-07-07 10:03] LABS: BILIRUBIN,TOTAL 0.6 mg/dL (0.2-1.0)
[2017-07-07] MEDS ORDERED: AMLODIPINE 5 MG TABLET ONE (10:28)
[2017-07-07] MEDS ORDERED: AMLODIPINE 5 MG TABLET PO ONE (10:30)
--- NOTE | 2017-07-07 11:27 | NUR ---
REPORT WAS GIVEN TO COST COORDINATOR. PT WAS TRANSFERED TO ROOM #219.
[2017-07-07 12:00] VITALS: BP 156/108
[2017-07-07 15:08] VITALS: BP 148/103
[2017-07-07] MEDS: METOCLOPRAMIDE HCL 10 MG TABLET PO SCH (16:30)
[2017-07-07] MEDS: TIZANIDINE HCL 4 MG TABLET PO SCH (17:00)
[2017-07-07] MEDS: CALCIUM ACETATE 667 MG CAPSULE PO SCH (17:26)
--- NOTE | 2017-07-07 17:45 | NUR ---
PATIENT REFUSES 1700 AND 1800 MEDICATIONS. VERBALIZES THAT HE WANTS TO REST AND THAT HE WILL FEEL NAUSEOUS IF HE TAKES THE MEDICATIONS.
--- NOTE | 2017-07-07 18:42 | NUR ---
stable condition, no s/s of distress. SR on tele monitor. call light within reach.
--- NOTE | 2017-07-07 19:10 | NUR ---
RECEIVED PT ASLEEP ON BED COMFORTABLY. PT SHOWS NO SIGNS OF DISTRESS. CALL LIGHT WITHIN REACH. BED ALARM ON AND IN LOW POSITION, SIDE RAILS UP X2. WILL CONTINUE TO MONITOR.
[2017-07-07 20:00] VITALS: BP 130/86
[2017-07-07] MEDS: AMLODIPINE 5 MG TABLET PO SCH (21:42)
[2017-07-07] MEDS: LABETALOL HCL 200 MG TABLET PO SCH (21:42)
[2017-07-07] MEDS ORDERED: HYDROCODONE/APAP 5-325MG TABLET PO PRN (23:00)
[2017-07-08 00:02] VITALS: BP 140/72
[2017-07-08] MEDS: ONDANSETRON 4 MG/2 ML VIAL IV PRN (02:40)
[2017-07-08 04:35] VITALS: BP 145/90
--- NOTE | 2017-07-08 06:11 | NUR ---
PT SLEPT INTERMITTENTLY DURING THE SHIFT. PT SHOWS NO SIGNS OF DISTRESS. PT IV INTACT AND PATENT.PRESCRIBED MEDICATION GIVEN AND PT TOLERATED IT WELL.CALL LIGHT WITHIN REACH. BED ALARM ON AND IN LOW POSITION,SIDE RAILS UP X2.SAFETY AND COMFORT PROVIDED. WILL ENDORSE TO DAYSHIFT NURSE.
[2017-07-08] MEDS: LABETALOL HCL 200 MG TABLET PO SCH ×3 (06:31→21:08)
[2017-07-08] MEDS: PANTOPRAZOLE SODIUM 40 MG TABLET.DR PO SCH (06:31)
[2017-07-08] MEDS: METOCLOPRAMIDE HCL 10 MG TABLET PO SCH ×3 (06:31→17:17)
--- NOTE | 2017-07-08 07:10 | NUR ---
Received pt awake, alert and oriented times 4. No immediate s/s of SOB, pain, distress or discomfort.
[2017-07-08 07:56] LABS: BASOPHILS % (AUTO) 0.7 % (0.0-2.0); EOSINOPHILS # (AUTO) 0.2 K/uL (0.0-0.7); HEMATOCRIT 29.8 % (36.7-47.1); HEMOGLOBIN 10.3 g/dL (12.5-16.3); LYMPHOCYTES # (AUTO) 2.2 K/uL (20.0-40.0); LYMPHOCYTES % (AUTO) 40.7 % (20.5-51.5); MEAN CORPUSCULAR HEMOGLOBIN 30.4 uug (23.8-33.4); MEAN CORPUSCULAR HGB CONC 34 g/dL (32.5-36.3); MEAN CORPUSCULAR VOLUME 88.4 fL (73.0-96.2); MONOCYTES # (AUTO) 0.4 K/uL (2.0-10.0); MONOCYTES % (AUTO) 7.4 % (0.0-11.0); NEUTROPHILS # (AUTO) 2.6 K/uL (1.8-8.9); NEUTROPHILS % (AUTO) 47.2 % (38.5-71.5); PLATELET COUNT (AUTO) 227 K/uL (152-348); RED BLOOD CELL COUNT(AUTO) 3.37 MIL/uL (4.06-5.63); WHITE BLOOD COUNT (AUTO) 5.5 K/uL (3.6-10.2)
--- NOTE | 2017-07-08 08:00 | NUR ---
Pt has been compliant with his morning Phos-lo. Pt states he has 10/10 pain but refuses his Noti. Pt states Noti does not help him with his pain.
[2017-07-08] MEDS: CALCIUM ACETATE 667 MG CAPSULE PO SCH ×3 (08:18→17:17)
[2017-07-08] MEDS: TIZANIDINE HCL 4 MG TABLET PO SCH ×2 (09:00→17:17)
[2017-07-08] MEDS: BENAZEPRIL HCL 20 MG TABLET PO SCH (09:00)
[2017-07-08] MEDS: AMLODIPINE 5 MG TABLET PO SCH ×2 (09:00→21:00)
[2017-07-08] MEDS: PAROXETINE HCL 10 MG TABLET PO SCH (09:00)
[2017-07-08] MEDS: FOLIC ACID/VITAMIN B COMP W-C TABLET PO SCH (09:00)
[2017-07-08 09:14] LABS: MAGNESIUM 2.6 mg/dL (1.8-2.4); POTASSIUM 5.3 mmol/L (3.5-5.1)
[2017-07-08 09:26] LABS: CREATININE 12.8 mg/dL (0.6-1.3)
[2017-07-08 09:28] LABS: PHOSPHOROUS 8.9 mg/dL (2.5-4.9)
--- NOTE | 2017-07-08 09:54 | NUR ---
Pt refused morning medication, stating "I dont want any medications". Offered 3times and explained risks and benefits, pt still refused
--- NOTE | 2017-07-08 11:55 | NUR ---
Pt refused his noon medication, explained risk and benefits, offered 3 times, pt still refused
[2017-07-08 12:17] VITALS: BP 132/83
--- NOTE | 2017-07-08 13:19 | NUR ---
Pt refused I check his B/P, pt states the OPERATING ROOM REGISTERED NURSE already took it. Pt refused his B/P medication after telling him that his B/P was 132/83 [id number]
[2017-07-08 15:15] VITALS: BP 126/76
--- NOTE | 2017-07-08 18:42 | NUR ---
Pt is back in his room from his shower
--- NOTE | 2017-07-08 18:46 | NUR ---
Pt is in his room awake, alert and oriented times 4. Pt took a shower, pt was compliant with in file operator medications and late afternoon medications. Pt slept most of the day. Pt did not request pain medication throughout the day, noted pt to eat well with no N&V present. Pt is under no apparent s/s of SOB, pain, distress or discomfort
--- NOTE | 2017-07-08 19:15 | NUR ---
RECEIVED PT AWAKE, ALERT, ORIENTEDX4. PT SHOWS NO SIGNS OF DISTRESS. PT IV INTACT AND PATENT. CALL LIGHT WITHIN REACH. BED ALARM ON AND IN LOW POSITION, SIDE RAILS UPX2. WILL CONTINUE TO MONITOR.
[2017-07-08 19:46] VITALS: BP 131/85
--- NOTE | 2017-07-08 21:00 | NUR ---
PT REFUSED TO TAKE HIS NORVASC AND TRANSDATE MEDICATION. HE STATED"HE IS FINE WITH HIS BLOOD PRESSURE SO NO NEED FOR HIS MEDICATION." WILL CONTINUE TO MONITOR.
--- NOTE | 2017-07-08 22:57 | NUR ---
DR. RICHARDSON , [facility] ORDERED BY TELEPHONE AMBIEN 5MG PRN AND PERCOCET 10-325MG PRN FOR THE PT BECAUSE PT IS ASKING FOR SLEEPING MEDICATION AND THE NORCO TABLET DOESN'T WORK FOR HIM. WILL CONTINUE TO MONITOR THE PT.
[2017-07-08] MEDS: ZOLPIDEM 5 MG TABLET PO PRN (23:52)
[2017-07-08] MEDS: OXYCODONE/APAP 5-325 MG TABLET PO PRN (23:57)
[2017-07-09] MEDS: ONDANSETRON 4 MG/2 ML VIAL IV PRN ×3 (00:01→22:42)
[2017-07-09 04:10] VITALS: BP 142/92
[2017-07-09] MEDS: LABETALOL HCL 200 MG TABLET PO SCH ×3 (06:00→22:06)
--- NOTE | 2017-07-09 06:09 | NUR ---
PT SLEPT THROUGHOUT THE SHIFT. PT SHOWS NO SIGNS OF DISTRESS. PT IV INTACT AND PATENT. PT STABLE.PRESCRIBED MEDICATION GIVEN AND PT TOLERATED IT WELL. SAFETY AND COMFORT PROVIDED.ALL NEEDS MET. WILL ENDORSE TO DAYSHIFT NURSE .
[2017-07-09] MEDS: METOCLOPRAMIDE HCL 10 MG TABLET PO SCH ×3 (06:59→17:00)
[2017-07-09] MEDS: PANTOPRAZOLE SODIUM 40 MG TABLET.DR PO SCH (06:59)
--- NOTE | 2017-07-09 06:59 | NUR ---
PT REFUSE TO TAKE HIS MEDICATION TRANDATE, PROTONIX AND REGLAN. I TOLD HIM THE CONSEQUENCE OF NOT TAKING HIS PRESCRIBED MEDICATIONS. HE STILL SAID NO. WILL ENDORSE TO DAYSHIFT NURSE. PT STABLE AND SHOWS NO SIGNS OF DISTRESS. SAFETY AND COMFORT PROVIDED.WILL ENDORSE TO DAYSHIFT NURSE.
[2017-07-09] MEDS: CALCIUM ACETATE 667 MG CAPSULE PO SCH ×3 (08:00→18:18)
[2017-07-09] MEDS: AMLODIPINE 5 MG TABLET PO SCH ×2 (09:00→22:06)
[2017-07-09] MEDS: BENAZEPRIL HCL 20 MG TABLET PO SCH (09:00)
[2017-07-09] MEDS: PAROXETINE HCL 10 MG TABLET PO SCH (09:00)
[2017-07-09] MEDS: TIZANIDINE HCL 4 MG TABLET PO SCH ×2 (09:00→17:00)
[2017-07-09] MEDS: FOLIC ACID/VITAMIN B COMP W-C TABLET PO SCH (09:00)
[2017-07-09 11:10] VITALS: BP 141/89
[2017-07-09 15:12] VITALS: BP 139/88
[2017-07-09] MEDS: OXYCODONE/APAP 5-325 MG TABLET PO PRN ×2 (15:13→22:51)
[2017-07-09 19:00] VITALS: BP 170/98
--- NOTE | 2017-07-09 19:15 | NUR ---
RECEIVED PT ASLEEP ON BED COMFORTABLY. PT SHOWS NO SIGNS OF DISTRESS. PT IV INTACT AND PATENT. CALL LIGHT WITHIN REACH. BED ALARM ON AND IN LOW POSITION, SIDE RAILS UPX2. WILL CONTINUE TO MONITOR.
[2017-07-09] MEDS: ZOLPIDEM 5 MG TABLET PO PRN (23:41)
[2017-07-10 04:00] VITALS: BP 146/88
[2017-07-10] MEDS: LABETALOL HCL 200 MG TABLET PO SCH (06:00)
[2017-07-10] MEDS: METOCLOPRAMIDE HCL 10 MG TABLET PO SCH (06:58)
[2017-07-10] MEDS: PANTOPRAZOLE SODIUM 40 MG TABLET.DR PO SCH (06:58)
--- NOTE | 2017-07-10 06:59 | NUR ---
PT DIDN'T SLEPT DURING MYSHIFT. PT SHOWS NO SIGNS OF DISTRESS. PT IV INTACT AND PATENT.PT STABLE.PRESCRIBED MEDICATION GIVEN AT NIGHTTIME AND PT TOLERATED IT WELL. PT REFUSE THE AM MEDICATION. PT STATED IT'S TOO EARLY. GAVE THE DISADVANTAGE OF NOT TAKING THE MEDICATION. PT UNDERSTAND BUT STILL DOESN'T WANT IT. ENDORSE TO DAYSHIFT NURSE.SAFETY AND COMFORT PROVIDED. ALL NEEDS ARE MET. WILL ENDORSE TO DAYSHIFT NURSE.
[2017-07-10] MEDS: CALCIUM ACETATE 667 MG CAPSULE PO SCH (07:42)
--- NOTE | 2017-07-10 08:08 | NUR ---
PT REFUSE TO TAKE HIS MEDICATION . I TOLD HIM THE CONSEQUENCE OF NOT TAKING HIS PRESCRIBED MEDICATIONS. HE STILL SAID NO. MADE AWARE PT STABLE AND SHOWS NO SIGNS OF DISTRESS. SAFETY AND COMFORT PROVIDED.PT REFUSED THE DIALYSIS
[2017-07-10] MEDS: BENAZEPRIL HCL 20 MG TABLET PO SCH (08:09)
[2017-07-10] MEDS: PAROXETINE HCL 10 MG TABLET PO SCH (08:10)
[2017-07-10] MEDS: AMLODIPINE 5 MG TABLET PO SCH (08:10)
[2017-07-10] MEDS: TIZANIDINE HCL 4 MG TABLET PO SCH (08:10)
[2017-07-10] MEDS: FOLIC ACID/VITAMIN B COMP W-C TABLET PO SCH (08:10)
--- NOTE | 2017-07-10 08:28 | NUR ---
D/C ORDERS RECEIVED NOTED AND CARRIED OUT,D/C HEPLOCK PER MD ORDERS.D/C INSTRUCTION AND EDUCATION GIVEN TO THE PT.PT VERBALIZED UNDERSTANDING ALL THE INSTRUCTION ,PT REFUSED TO SEE THE PHARMACIST FOR MEDICATION EDUCATION,DR ALVARES TALK TO THE PT.PT LEFT THE FACILITY VIA WALKING FROM THE HOSPITAL IN PROPER CLOTHING IN STABLE CONDITION
== END 2017-07-10 08:30 | disposition home or self-care (01) | DRG 199 ==
LOC: ER 08:50 → TELE 11:13 → MED 07-08 20:06
PROVIDERS: ADMIT Internal Medicine; ATTEND Internal Medicine
PROC: 5A1D70Z Performance of Urinary Filtration, Intermittent, Less than 6 Hours Per Day (ICD-10-PCS; principal; 2017-07-09)
DX: I16.0 Hypertensive urgency (principal); C90.00 Multiple myeloma not having achieved remission; C43.9 Malignant melanoma of skin, unspecified; N18.6 End stage renal disease; I50.9 Heart failure, unspecified; I13.2 Hypertensive heart and chronic kidney disease with heart failure and with stage 5 chronic kidney disease, or end stage renal disease; K29.70 Gastritis, unspecified, without bleeding; E87.1 Hypo-osmolality and hyponatremia; K21.0 Gastro-esophageal reflux disease with esophagitis; G89.4 Chronic pain syndrome; Z99.2 Dependence on renal dialysis; R94.31 Abnormal electrocardiogram [ECG] [EKG]; F17.200 Nicotine dependence, unspecified, uncomplicated; Z91.19 Patient's noncompliance with other medical treatment and regimen; R07.9 Chest pain, unspecified; R78.89 Finding of other specified substances, not normally found in blood
CPT/HCPCS: 36415; 70030-TC; 71045; 83735; 84100; 85025; 85610; 90937; 93005; A4663; J1200; J2270; J2405; J7030; J8597

== ENCOUNTER 2017-07-20 19:16 | Inpatient (IN) | payer OTHER ==
[~2017-07-20] VITALS: Ht 170.2 cm; Wt 60.8 kg
[2017-07-20] MEDS ORDERED: ONDANSETRON 4 MG/2 ML VIAL IV ONE ×2 (20:45→22:30)
[2017-07-20] MEDS ORDERED: LABETALOL HCL 100 MG/20 ML VIAL IV ONE ×2 (20:45→22:00)
[2017-07-20] MEDS ORDERED: MORPHINE SULFATE 2 MG/1 ML DISP.SYRIN IV ONE (20:45)
[2017-07-20 21:27] LABS: BASOPHILS % (AUTO) 0.6 % (0.0-2.0); EOSINOPHILS # (AUTO) 0.2 K/uL (0.0-0.7); EOSINOPHILS % (AUTO) 4.1 % (0.0-7.0); HEMATOCRIT 24.5 % (36.7-47.1); HEMOGLOBIN 8.5 g/dL (12.5-16.3); LYMPHOCYTES # (AUTO) 2.2 K/uL (20.0-40.0); LYMPHOCYTES % (AUTO) 37.4 % (20.5-51.5); MEAN CORPUSCULAR HEMOGLOBIN 30.8 uug (23.8-33.4); MEAN CORPUSCULAR HGB CONC 35 g/dL (32.5-36.3); MONOCYTES # (AUTO) 0.5 K/uL (2.0-10.0); MONOCYTES % (AUTO) 8.2 % (0.0-11.0); NEUTROPHILS # (AUTO) 2.9 K/uL (1.8-8.9); NEUTROPHILS % (AUTO) 49.7 % (38.5-71.5); PLATELET COUNT (AUTO) 229 K/uL (152-348); RED BLOOD CELL COUNT(AUTO) 2.75 MIL/uL (4.06-5.63); WHITE BLOOD COUNT (AUTO) 5.9 K/uL (3.6-10.2)
[2017-07-20 21:41] LABS: BILIRUBIN,DIRECT 0.2 mg/dL (0.0-0.2); BILIRUBIN,TOTAL 0.7 mg/dL (0.2-1.0); TOTAL PROTEIN, SERUM 9.5 g/dL (6.4-8.2)
[2017-07-20 21:51] LABS: POTASSIUM 7.2 mmol/L (3.5-5.1)
[2017-07-20] MEDS ORDERED: INSULIN REGULAR, HUMAN 1,000 UNITS/10 ML VIAL IV ONE (22:00)
[2017-07-20] MEDS ORDERED: CALCIUM CHLORIDE 1 GM/10 ML DISP.SYRIN IVP ONE ×2 (22:00→22:08)
[2017-07-20] MEDS ORDERED: SODIUM BICARBONATE 8.4% 50 MEQ/50 ML DISP.SYRIN IV ONE ×2 (22:00→22:08)
[2017-07-20] MEDS ORDERED: DEXTROSE 50% 50 ML DISP.SYRIN IV ONE (22:00)
[2017-07-20] MEDS ORDERED: LABETALOL HCL 100 MG/20 ML VIAL ONE ×2 (22:07→22:27)
[2017-07-20] MEDS ORDERED: MORPHINE SULFATE 4 MG/1 ML DISP.SYRIN ONE (22:07)
[2017-07-20] MEDS ORDERED: ONDANSETRON 4 MG/2 ML VIAL ONE ×2 (22:07→22:31)
[2017-07-20] MEDS ORDERED: DEXTROSE 50% 50 ML DISP.SYRIN ONE (22:08)
[2017-07-20] MEDS ORDERED: INSULIN REGULAR, HUMAN 300 UNIT/3 ML VIAL ONE (22:08)
--- NOTE | 2017-07-20 22:34 | NUR ---
PAGED [facility]. WAITING FOR DR BOWERS TO CALL BACK
[2017-07-20] MEDS ORDERED: hydrALAZINE HCL 20 MG/1 ML VIAL IV ONE (23:30)
--- NOTE | 2017-07-20 23:35 | NUR ---
DR BOWERS HAS NOT RETURNED CALL. RE PAGED DR BOWERS ORDERED BY DR MCCABE
[2017-07-20] MEDS ORDERED: hydrALAZINE HCL 20 MG/1 ML VIAL ONE (23:45)
--- NOTE | 2017-07-21 00:11 | NUR ---
DR MCCABE SPEAKING WITH DR BRISENO
[2017-07-21] MEDS ORDERED: hydrALAZINE HCL 20 MG/1 ML VIAL IV ONE (00:30)
[2017-07-21] MEDS ORDERED: CLONIDINE HCL 0.1 MG TABLET ONE (00:30)
[2017-07-21] MEDS ORDERED: CLONIDINE HCL 0.1 MG TABLET PO ONE (00:30)
[2017-07-21] MEDS ORDERED: hydrALAZINE HCL 20 MG/1 ML VIAL ONE (00:30)
--- NOTE | 2017-07-21 00:40 | NUR ---
REPORT GIVEN TO TELEMETRY NURSE, TONIO PELLETIER.
--- NOTE | 2017-07-21 01:35 | NUR ---
Pt. admitted to TELEMETRY, under care of Dr. BOWERS Belongs List completed
[2017-07-21 01:37] VITALS: BP 156/92
--- NOTE | 2017-07-21 01:37 | NUR ---
nsg: pt received a/o x 4 fr er via gurney with dx of hypertension and hyperkalemia. no acute distress noted. tele, SR. bp 156/92. denies pain, n/v. cont to monitor.
[2017-07-21] MEDS ORDERED: CLONIDINE HCL 0.1 MG TABLET PO PRN (02:00)
[2017-07-21] MEDS ORDERED: HYDROMORPHONE 1 MG/1 ML DISP.SYRIN IV PRN (02:00)
[2017-07-21 03:43] VITALS: BP 158/102
[2017-07-21] MEDS ORDERED: HYDROMORPHONE 2 MG/1 ML DISP.SYRIN ONE (05:29)
--- NOTE | 2017-07-21 05:30 | NUR ---
nsg: pt c/o left thigh pain, medicated with dilaudid 1mg ivp. tele, SR. cont with treatment plan.
[2017-07-21] MEDS: LABETALOL HCL 200 MG TABLET PO SCH ×3 (07:30→22:50)
[2017-07-21] MEDS ORDERED: HYDROMORPHONE 2 MG/1 ML DISP.SYRIN IV PRN (07:30)
[2017-07-21] MEDS: PANTOPRAZOLE SODIUM 40 MG TABLET.DR PO SCH (07:30)
[2017-07-21] MEDS ORDERED: METOCLOPRAMIDE HCL 10 MG TABLET PO SCH (07:30)
[2017-07-21] MEDS: METOCLOPRAMIDE HCL 5 MG TABLET PO SCH ×3 (07:30→16:19)
--- NOTE | 2017-07-21 07:51 | NUR ---
RECEIVED PATIENT IN BED SLEEPING ON AND OFF ALERT AND ORIENTED AND REQUESTING FOR NEPRO DRINK HE HAS NO ORDER SO DR BOWERS CALLED WITH ORDERS AT THIS TIME.LEFT FORE ARM AV SHUNT IS INTACT WITH BRUIT AND THRILL RIGHT FOREARM HEPLOCK IS INTACT RESTING WELL CONTINUE TO MONITOR WITH TELEMETRY SINUS WITH NO ECTOPY NOTED WILL CONTINUE TO OBSERVE.
[2017-07-21] MEDS: CALCIUM ACETATE 667 MG CAPSULE PO SCH ×3 (08:00→17:51)
[2017-07-21] MEDS: NEPRO (VANILLA) 237 ML CAN PO SCH ×3 (08:00→16:19)
[2017-07-21] MEDS ORDERED: SODIUM POLYSTYRENE SULFONATE 15 G/60 ML LIQUID UDC PO ONE (08:15)
--- NOTE | 2017-07-21 08:15 | NUR ---
DR BOWERS HERE TO SEE AND EXAMINE PATIENT WITH NEW ORDERS POTASSIUM LEVEL IS 7.2 WITH ORDER FOR KAYEXALATE TODAY.PATIENT IS FOR DIALYSIS TODAY WILL OBSERVE.
[2017-07-21] MEDS: FOLIC ACID/VITAMIN B COMP W-C TABLET PO SCH (08:17)
[2017-07-21] MEDS: TIZANIDINE HCL 4 MG TABLET PO SCH ×2 (08:18→16:19)
[2017-07-21] MEDS: PAROXETINE HCL 10 MG TABLET PO SCH ×2 (08:18→15:15)
[2017-07-21] MEDS: AMLODIPINE 5 MG TABLET PO SCH ×2 (08:22→21:29)
[2017-07-21] MEDS ORDERED: BENAZEPRIL HCL 20 MG TABLET PO SCH ×2 (09:00)
[2017-07-21] MEDS: ONDANSETRON 4 MG/2 ML VIAL IV PRN ×2 (10:28→22:05)
--- NOTE | 2017-07-21 10:28 | NUR ---
ATTEMPTED TO GIVE THE PATIENT THE KAYEXALATE ORDERED BUT HE REFUSED AT THIS TIME AND STATED THAT HE HAS NAUSEA MEDICATED WITH ZOFRAN ORDERED AND WILL CHECK EFFECTIVENESS OF THE ZOFRAN AND WILL RE OFFER THE KAYEXALATE LATER.
[2017-07-21] MEDS ORDERED: EPOETIN ALFA 10,000 UNITS/ML VIAL SQ ONE (11:25)
[2017-07-21 11:38] VITALS: BP 168/102
[2017-07-21] MEDS: MORPHINE SULFATE 2 MG/1 ML DISP.SYRIN IV PRN ×2 (11:44→21:28)
--- NOTE | 2017-07-21 11:45 | NUR ---
PATIENT C/O GENERALISED PAIN MEDICATED WITH MORPHINE ORDERED AND DIALYSIS STARTED AND THE SUPERVISOR PRODUCTION MANAGING STATED NOT TO GIVE PATIENT THE KAYEXALATE STATED THAT SHE WILL INFORM DR BOWERS FOR ORDER TO HOLD.
--- NOTE | 2017-07-21 12:32 | NUR ---
DIALYSIS REMAIN IN PROGRESS AT THIS TIME NEW ORDER NOTED TO DISCONTINUE THE KAYEXALATE FROM DR BOWERS DUE TO THE POTASSIUM BATH.
--- NOTE | 2017-07-21 14:30 | NUR ---
DIALYSIS COMPLETED ORDERED WITH 2000 ML OUT AND PATIENT TOLERATED WELL
[2017-07-21] MEDS ORDERED: BENAZEPRIL HCL 20 MG TABLET PO ONE (15:00)
[2017-07-21 15:44] VITALS: BP 168/113
--- NOTE | 2017-07-21 17:51 | NUR ---
PATIENT HAS REFUSED TO EAT DINNER AND SUCH UNABLE TO GIVE HIM HIS DUE PHOSLO. BENEFITS EXPLAINED BUT HE STILL REFUSED TO EAT AT THIS TIME.
[2017-07-21 19:38] VITALS: BP 124/92
--- NOTE | 2017-07-21 22:45 | NUR ---
RECEIVED PT LYING IN BED. AAOX4. IN NO ACUTE DISTRESS. DENIES ANY SOB. IV SITE ON LFA INTACT AND PATENT. SAFETY MEASURE INITIATED AND CALL FOSTER WITHIN REACH. Addendum: 07/22/17 at 0618 by JOANNA PAETL RN IV SITE ON RFA
[2017-07-22] VITALS: BP 143/87
[2017-07-22] MEDS: MORPHINE SULFATE 2 MG/1 ML DISP.SYRIN IV PRN ×2 (01:27→05:23)
[2017-07-22 04:00] VITALS: BP 125/72
[2017-07-22] MEDS: ONDANSETRON 4 MG/2 ML VIAL IV PRN (05:52)
[2017-07-22] MEDS: LABETALOL HCL 200 MG TABLET PO SCH ×3 (06:00→21:36)
[2017-07-22 06:17] LABS: BASOPHILS % (AUTO) 0.6 % (0.0-2.0); EOSINOPHILS # (AUTO) 0.1 K/uL (0.0-0.7); HEMATOCRIT 29.1 % (36.7-47.1); HEMOGLOBIN 9.9 g/dL (12.5-16.3); LYMPHOCYTES # (AUTO) 2.6 K/uL (20.0-40.0); LYMPHOCYTES % (AUTO) 37.1 % (20.5-51.5); MEAN CORPUSCULAR HEMOGLOBIN 30.1 uug (23.8-33.4); MEAN CORPUSCULAR HGB CONC 34 g/dL (32.5-36.3); MEAN CORPUSCULAR VOLUME 88.4 fL (73.0-96.2); MONOCYTES # (AUTO) 0.6 K/uL (2.0-10.0); MONOCYTES % (AUTO) 8.9 % (0.0-11.0); NEUTROPHILS # (AUTO) 3.6 K/uL (1.8-8.9); NEUTROPHILS % (AUTO) 51.4 % (38.5-71.5); PLATELET COUNT (AUTO) 288 K/uL (152-348); RED BLOOD CELL COUNT(AUTO) 3.29 MIL/uL (4.06-5.63)
--- NOTE | 2017-07-22 06:17 | NUR ---
PATIENT AAOX4. MORPHINE PRN GIVEN FOR COMPLAIN OF PAIN ON BOTH SHOULDER AND NECK AREA WITH MINIMAL EFFECT. VOMITED X1 THIS AM, MODERATE IN AMOUNT. ZOFRAN GIVEN PER ORDER. IN NO ACUTE DISTRESS. O2 SAT AT 98% ON RA. PT CALM AND PLEASANT. IV SITE ON RFA INTACT AND PATENT. SR ON TELE AT 80/MIN. NEEDS ATTENDED TO AND MET. SAFETY MEASURE MAINTAINED AND CALL FOSTER WITHIN REACH.
[2017-07-22 06:22] LABS: BILIRUBIN,TOTAL 0.6 mg/dL (0.2-1.0); MAGNESIUM 2.6 mg/dL (1.8-2.4); POTASSIUM 4.7 mmol/L (3.5-5.1); TOTAL PROTEIN, SERUM 9.9 g/dL (6.4-8.2)
[2017-07-22 06:26] LABS: CREATININE 14.2 mg/dL (0.6-1.3)
[2017-07-22 06:27] LABS: PHOSPHOROUS 9.1 mg/dL (2.5-4.9)
--- NOTE | 2017-07-22 06:29 | NUR ---
LAB CALLED WITH CRITICAL VALUES FOR BUN-87, CREATININE- 14.2 AND PHOSPHORUS- 9.1. BUN AND CREATININE RESULT LOWER THAN PREVIOUS ONE. WILL ENDORSE TO DAY SHIFT NURSE.
[2017-07-22] MEDS: METOCLOPRAMIDE HCL 5 MG TABLET PO SCH ×3 (06:31→16:30)
[2017-07-22] MEDS: PANTOPRAZOLE SODIUM 40 MG TABLET.DR PO SCH (06:31)
--- NOTE | 2017-07-22 07:33 | NUR ---
patient resting comfortably in bed, no s/s of distress. stable. notified by leather toggler nurse that patient refused bp medication during leather toggler. possible dialysis today. critical lab values this morning reported, BUN, creatinine trending in expected direction; Phos 9.1 new lab value, will notify MD. bed alarm on, call light within reach. will continue to monitor.
[2017-07-22] MEDS: CALCIUM ACETATE 667 MG CAPSULE PO SCH ×3 (08:00→17:33)
[2017-07-22] MEDS: NEPRO (VANILLA) 237 ML CAN PO SCH ×3 (08:15→17:36)
[2017-07-22] MEDS: BENAZEPRIL HCL 20 MG TABLET PO SCH (09:00)
[2017-07-22] MEDS: AMLODIPINE 5 MG TABLET PO SCH ×2 (09:00→20:58)
--- NOTE | 2017-07-22 09:00 | NUR ---
patient refused Phoslo - did not eat breakfast at all.
[2017-07-22] MEDS: FOLIC ACID/VITAMIN B COMP W-C TABLET PO SCH (09:14)
[2017-07-22] MEDS: PAROXETINE HCL 10 MG TABLET PO SCH (09:14)
[2017-07-22] MEDS: TIZANIDINE HCL 4 MG TABLET PO SCH ×2 (09:14→17:08)
[2017-07-22 09:18] VITALS: BP 150/88
--- NOTE | 2017-07-22 09:30 | NUR ---
Routine blood pressure medications not administered this morning due to scheduled dialysis.
[2017-07-22 11:36] VITALS: BP 119/76
--- NOTE | 2017-07-22 12:35 | NUR ---
patient completed dialysis at this time. 2L out. stable condition. no signs of bleeding from AV Fistula.
--- NOTE | 2017-07-22 13:09 | NUR ---
Non-administration medication: Labetolol 200 mg PO - patient recently completed dialysis at 1235.
--- NOTE | 2017-07-22 15:15 | NUR ---
Medical care transferring to TONIO Flannery. Report given.
--- NOTE | 2017-07-22 15:20 | NUR ---
Received patient awake, verbally responsive, coherent, not in any form of acute distress. He denies any pain or discomfort at this time. Assisted to his needs. Call light placed within reach.
[2017-07-22 15:37] VITALS: BP 128/85
--- NOTE | 2017-07-22 17:00 | NUR ---
Patient refused to take due Reglan. Explained risks and benefits but patient still refused.
[2017-07-22] MEDS: HYDROCODONE/APAP 5-325MG TABLET PO PRN (17:08)
--- NOTE | 2017-07-22 19:15 | NUR ---
RECEIVED PT LYING IN BED, ASLEEP BUT EASILY AROUSE TO VERBAL STIMULI. AOX4. IN NO ACUTE DISTRESS. IV SITE ON RFA INTACT AND PATENT. SAFETY MEASURE INITIATED AND CALL FOSTER WITHIN REACH.
[2017-07-22 19:46] VITALS: BP 116/86
--- NOTE | 2017-07-22 20:00 | NUR ---
PATIENT IS ASLEEP IN BED BUT EASILY AROUSABLE. C/O PAIN, PAIN MEDS GIVEN BY PREVIOUS SHIFT. EXPLAINED TO PATIENT PAIN MEDS ARE DUE EVERY 4 HOURS PER MD ORDERS. BP WNL AT PRESENT. SAFETY MEASURES IN PLACE, CALL LIGHT LEFT WITHIN PATIENT'S REACH
--- NOTE | 2017-07-22 21:46 | NUR ---
PATIENT REFUSED HIS SCHEDULED BP MEDS FOR 2100 & 2200.TEACHING PROVIDED ON IMPORTANCE OF TAKING HIS MEDS TO MANAGE BP, PATIENT STILL DECLINED STATING " NO MORE BP MEDS"
[2017-07-23] MEDS: ONDANSETRON 4 MG/2 ML VIAL IV PRN ×3 (01:44→19:07)
[2017-07-23] MEDS: HYDROCODONE/APAP 5-325MG TABLET PO PRN ×2 (03:15→12:02)
[2017-07-23 03:48] VITALS: BP 118/79
[2017-07-23] MEDS: LABETALOL HCL 200 MG TABLET PO SCH ×3 (06:00→21:25)
--- NOTE | 2017-07-23 06:08 | NUR ---
PATIENT AAOX4. NORCO X1 DOSE GIVEN FOR COMPLAIN OF PAIN ON BOTH SHOULDER AND EFFECTIVE. EPISODE OF NAUSEA AND GIVEN ZOFRAN PRN PER ORDER. NO VOMITING. IN NO ACUTE DISTRESS. O2 SAT AT 99% ON RA. IV SITE ON RFA INTACT AND PATENT. SAFETY MEASURE MAINTAINED AND CALL FOSTER WITHIN REACH.
[2017-07-23] MEDS: PANTOPRAZOLE SODIUM 40 MG TABLET.DR PO SCH ×2 (07:00→10:34)
[2017-07-23] MEDS: NEPRO (VANILLA) 237 ML CAN PO SCH ×3 (08:00→17:00)
[2017-07-23 10:00] VITALS: BP 127/84
[2017-07-23] MEDS: CALCIUM ACETATE 667 MG CAPSULE PO SCH ×3 (10:34→17:06)
[2017-07-23] MEDS: FOLIC ACID/VITAMIN B COMP W-C TABLET PO SCH (10:34)
[2017-07-23] MEDS: AMLODIPINE 5 MG TABLET PO SCH ×2 (10:35→21:00)
[2017-07-23] MEDS: TIZANIDINE HCL 4 MG TABLET PO SCH ×2 (10:35→17:00)
[2017-07-23] MEDS: BENAZEPRIL HCL 20 MG TABLET PO SCH (10:36)
[2017-07-23] MEDS: PAROXETINE HCL 10 MG TABLET PO SCH (10:36)
[2017-07-23] MEDS: METOCLOPRAMIDE HCL 5 MG TABLET PO SCH ×3 (10:37→16:30)
[2017-07-23 11:05] VITALS: BP 133/78
--- NOTE | 2017-07-23 11:35 | NUR ---
Regaln medication duuplication, patient refused earlier Reglan and previous dose given 1 hour ago
[2017-07-23 16:11] VITALS: BP 111/75
--- NOTE | 2017-07-23 19:21 | NUR ---
patient C/O nausea medicated with Zofran as ordered. No emesis. patient denies pain or need for pain medications
--- NOTE | 2017-07-23 20:00 | NUR ---
Received pt. in bed resting, sleeping but easily arousable by Nurse's sound and voice. Pt. alert, awake, oriented x 4, can express needs and feeling s to the Nurses and caregivers. Pt. in room air. No s/s of RR distress. Breathing regular, symmetrical and unlabored. Pt. denies pain @ this time. Refused per oral po. meds. due @ this time. pt. refused any BP meds. @ this time, BP 133/ 88, pulse 81/minute @ this time as a result just taken by the VERIFICATION ENGINEER-Caregiver. Pt. provided assistance with the activities of daily living and maintained pt. safety in bed. Call-light within reach and room well lighted when pt. will ambulate to the BR. Pt. skin intact. Will assist pt.'s needs and willl provide nsg. care during the shift. Pt. no tele attached.
[2017-07-23 20:30] VITALS: BP 133/88
[2017-07-24] MEDS: ONDANSETRON 4 MG/2 ML VIAL IV PRN ×2 (01:13→08:17)
[2017-07-24] MEDS: HYDROCODONE/APAP 5-325MG TABLET PO PRN ×2 (02:18→08:16)
[2017-07-24 05:05] VITALS: BP 138/98
[2017-07-24] MEDS: METOCLOPRAMIDE HCL 5 MG TABLET PO SCH ×2 (06:45→11:44)
[2017-07-24] MEDS: LABETALOL HCL 200 MG TABLET PO SCH ×2 (06:45→14:00)
--- NOTE | 2017-07-24 07:15 | NUR ---
Received report from welder 2nd shift nruse, patient in bed awake, no distress noted, bed in low position, side rails up x2.
[2017-07-24] MEDS: AMLODIPINE 5 MG TABLET PO SCH (08:16)
[2017-07-24] MEDS: CALCIUM ACETATE 667 MG CAPSULE PO SCH ×2 (08:16→11:44)
[2017-07-24] MEDS: PAROXETINE HCL 10 MG TABLET PO SCH (08:16)
[2017-07-24] MEDS: FOLIC ACID/VITAMIN B COMP W-C TABLET PO SCH (08:16)
[2017-07-24] MEDS: TIZANIDINE HCL 4 MG TABLET PO SCH (08:17)
[2017-07-24] MEDS: BENAZEPRIL HCL 20 MG TABLET PO SCH (08:17)
[2017-07-24 11:33] VITALS: BP 105/65
--- NOTE | 2017-07-24 13:59 | NUR ---
Patient was given discharge instructions, iv removed, and all belongings accounted for. No distress noted at the time of discharge, all questions answered and patient was taken to lobby via wheelchair for discharge to self care.
== END 2017-07-24 14:15 | disposition home or self-care (01) | DRG 470 ==
LOC: ER 19:18 → TELE 07-21 00:46 → MED 07-22 13:26
PROVIDERS: ADMIT Internal Medicine; ATTEND Internal Medicine
PROC: 5A1D70Z Performance of Urinary Filtration, Intermittent, Less than 6 Hours Per Day (ICD-10-PCS; principal; 2017-07-21)
DX: I12.0 Hypertensive chronic kidney disease with stage 5 chronic kidney disease or end stage renal disease (principal); C43.9 Malignant melanoma of skin, unspecified; E87.5 Hyperkalemia; N18.6 End stage renal disease; N28.1 Cyst of kidney, acquired; D63.8 Anemia in other chronic diseases classified elsewhere; F17.200 Nicotine dependence, unspecified, uncomplicated; F12.90 Cannabis use, unspecified, uncomplicated; G89.4 Chronic pain syndrome; K21.0 Gastro-esophageal reflux disease with esophagitis; K29.70 Gastritis, unspecified, without bleeding; Z99.2 Dependence on renal dialysis; Z91.14 Patient's other noncompliance with medication regimen; Z91.15 Patient's noncompliance with renal dialysis; Z79.899 Other long term (current) drug therapy; K57.30 Diverticulosis of large intestine without perforation or abscess without bleeding; I70.0 Atherosclerosis of aorta; Z76.5 Malingerer [conscious simulation]
CPT/HCPCS: 36415; 70030-TC; 71045; 83690; 83735; 84100; 85025; 90937; 93005; A4663; J0360; J0885; J1170; J1815; J2270; J2405; J3490; J7030; J8597

== ENCOUNTER 2017-08-13 08:56 | Emergency (ER) | payer OTHER ==
[~2017-08-13] VITALS: Ht 170.2 cm; Wt 73.5 kg
--- NOTE | 2017-08-13 09:10 | NUR ---
pt is in room #2b. dr Bond evaluated the pt.
[2017-08-13] MEDS ORDERED: LABETALOL HCL 100 MG TABLET PO ONE (09:15)
[2017-08-13] MEDS ORDERED: HYDROCODONE/APAP 5-325MG TABLET PO ONE (09:15)
[2017-08-13] MEDS ORDERED: LABETALOL HCL 100 MG TABLET ONE (09:31)
[2017-08-13 09:32] LABS: BASOPHILS % (AUTO) 0.5 % (0.0-2.0); CREATININE 6.9 mg/dL (0.6-1.3); EOSINOPHILS # (AUTO) 0.1 K/uL (0.0-0.7); EOSINOPHILS % (AUTO) 1.8 % (0.0-7.0); HEMATOCRIT 26.4 % (36.7-47.1); HEMOGLOBIN 9.3 g/dL (12.5-16.3); LYMPHOCYTES # (AUTO) 1.1 K/uL (20.0-40.0); LYMPHOCYTES % (AUTO) 28.7 % (20.5-51.5); MEAN CORPUSCULAR HEMOGLOBIN 31.4 uug (23.8-33.4); MEAN CORPUSCULAR HGB CONC 35 g/dL (32.5-36.3); MEAN CORPUSCULAR VOLUME 89.4 fL (73.0-96.2); MONOCYTES # (AUTO) 0.4 K/uL (2.0-10.0); MONOCYTES % (AUTO) 9.8 % (0.0-11.0); NEUTROPHILS # (AUTO) 2.3 K/uL (1.8-8.9); NEUTROPHILS % (AUTO) 59.2 % (38.5-71.5); PLATELET COUNT (AUTO) 261 K/uL (152-348); POTASSIUM 3.4 mmol/L (3.5-5.1); RED BLOOD CELL COUNT(AUTO) 2.95 MIL/uL (4.06-5.63); WHITE BLOOD COUNT (AUTO) 3.9 K/uL (3.6-10.2)
[2017-08-13] MEDS ORDERED: HYDROCODONE/APAP 5-325MG TABLET ONE (09:32)
[2017-08-13 09:37] LABS: BILIRUBIN,TOTAL 0.7 mg/dL (0.2-1.0); TOTAL PROTEIN, SERUM 10.6 g/dL (6.4-8.2)
--- NOTE | 2017-08-13 12:49 | NUR ---
PT WAS D/C TO HOME. D/C INSTRUCTIONS GIVEN TO THE PT.
[2017-08-13 12:51] VITALS: BP 146/92
== END 2017-08-13 12:52 | disposition home or self-care (01) ==
LOC: ER 08:56
DX: R79.9 Abnormal finding of blood chemistry, unspecified (principal); I10 Essential (primary) hypertension; K21.9 Gastro-esophageal reflux disease without esophagitis; G89.29 Other chronic pain; F17.210 Nicotine dependence, cigarettes, uncomplicated; F12.10 Cannabis abuse, uncomplicated; Z79.899 Other long term (current) drug therapy
CPT/HCPCS: 36415; 80053; 85025; 99284; A4663

== ENCOUNTER 2017-08-17 10:54 | Inpatient (IN) | payer OTHER ==
[~2017-08-17] VITALS: Ht 165.1 cm; Wt 61.0 kg
[2017-08-17] MEDS ORDERED: CLONIDINE HCL 0.2 MG TABLET PO ONE ×2 (11:15→12:15)
[2017-08-17] MEDS ORDERED: MORPHINE SULFATE 4 MG/1 ML DISP.SYRIN IM ONE ×2 (11:15→12:15)
[2017-08-17] MEDS ORDERED: ONDANSETRON ODT 4 MG TAB.RAPDIS SL ONE ×2 (11:15→12:15)
[2017-08-17] MEDS ORDERED: MORPHINE SULFATE 4 MG/1 ML DISP.SYRIN ONE ×2 (11:19→11:58)
[2017-08-17] MEDS ORDERED: CLONIDINE HCL 0.2 MG TABLET ONE ×2 (11:19→11:58)
[2017-08-17] MEDS ORDERED: ONDANSETRON ODT 4 MG TAB.RAPDIS ONE ×2 (11:19→11:58)
[2017-08-17 11:32] LABS: BASOPHILS % (AUTO) 0.3 % (0.0-2.0); EOSINOPHILS # (AUTO) 0.2 K/uL (0.0-0.7); EOSINOPHILS % (AUTO) 3.1 % (0.0-7.0); HEMATOCRIT 22.5 % (36.7-47.1); HEMOGLOBIN 7.7 g/dL (12.5-16.3); LYMPHOCYTES # (AUTO) 1.7 K/uL (20.0-40.0); LYMPHOCYTES % (AUTO) 33.5 % (20.5-51.5); MEAN CORPUSCULAR HEMOGLOBIN 30.9 uug (23.8-33.4); MEAN CORPUSCULAR HGB CONC 34 g/dL (32.5-36.3); MEAN CORPUSCULAR VOLUME 90.4 fL (73.0-96.2); MONOCYTES # (AUTO) 0.6 K/uL (2.0-10.0); MONOCYTES % (AUTO) 11.3 % (0.0-11.0); NEUTROPHILS # (AUTO) 2.6 K/uL (1.8-8.9); NEUTROPHILS % (AUTO) 51.8 % (38.5-71.5); PLATELET COUNT (AUTO) 225 K/uL (152-348)
[2017-08-17 11:36] LABS: RED BLOOD CELL COUNT(AUTO) 2.49 MIL/uL (4.06-5.63)
[2017-08-17 11:41] LABS: CREATININE 15.6 mg/dL (0.6-1.3); POTASSIUM 5.2 mmol/L (3.5-5.1)
[2017-08-17] MEDS ORDERED: LIDOCAINE 2% (UROJET) 10 ML JELLY MM ONE (11:45)
[2017-08-17 11:47] LABS: BILIRUBIN,DIRECT 0.1 mg/dL (0.0-0.2); BILIRUBIN,TOTAL 0.6 mg/dL (0.2-1.0); TOTAL PROTEIN, SERUM 9.2 g/dL (6.4-8.2)
[2017-08-17] MEDS ORDERED: hydrALAZINE HCL 20 MG/1 ML VIAL IV ONE (12:15)
[2017-08-17] MEDS ORDERED: LABETALOL HCL 100 MG/20 ML VIAL IV STA (12:24)
[2017-08-17] MEDS ORDERED: hydrALAZINE HCL 20 MG/1 ML VIAL ONE (12:28)
[2017-08-17] MEDS ORDERED: LABETALOL HCL 100 MG/20 ML VIAL ONE (12:28)
--- NOTE | 2017-08-17 12:37 | NUR ---
1218- Nurse Carolina accepted hands off report. 1219- 2nd floor shank skinner Rohoni called back and asked about the current SBP levels to qualify for telemetry admission. Patient's care maybe upgraded if necessary, Dr Luke notified. 1225- Telemetry admission still but TONIO Malcolm will take this patient & not LACQUER MACHINE FEEDER Carolina per 2nd floor home inspector Rohoni. 1237- Marketing Rotation Associate attempted to give 2nd nursing report to the newly assigned RN from the telemetry floor, the assigned RN will call ER as soon as possible for repeat hands off report.
--- NOTE | 2017-08-17 13:10 | NUR ---
Rec'd pt for admission from the ER. Pt appears sleepy but arousable to name. Per pt, he is just tired. Pt is A&O x4. Admitted for Renal Failure and HTN. Pt denies pain at this time. 64bpm on tele, SR. Refused body check. Oriented to unit, room, bed controls, and call light. Will continue to monitor.
[2017-08-17 13:12] VITALS: BP 140/93
[2017-08-17 15:16] VITALS: BP 125/84
[2017-08-17] MEDS ORDERED: MAGNESIUM HYDROXIDE 30 ML LIQUID UDC PO PRN (15:45)
[2017-08-17] MEDS: FOLIC ACID/VITAMIN B COMP W-C TABLET PO SCH (15:45)
[2017-08-17] MEDS ORDERED: ACETAMINOPHEN 325 MG TABLET PO PRN (15:45)
[2017-08-17] MEDS ORDERED: PANTOPRAZOLE SODIUM 40 MG TABLET.DR PO SCH ×2 (15:45→17:00)
[2017-08-17] MEDS ORDERED: Medication Not On Formulary EA (Benazepril Hcl 40 MG) PO SCH (15:45)
[2017-08-17] MEDS ORDERED: Z GUARD REMEDY PASTE 57 GM TUBE TOP PRN (15:45)
[2017-08-17] MEDS: PAROXETINE HCL 10 MG TABLET PO SCH (15:45)
[2017-08-17] MEDS ORDERED: LABETALOL HCL 200 MG TABLET PO SCH (17:00)
[2017-08-17] MEDS ORDERED: CALCIUM ACETATE 667 MG CAPSULE PO SCH (17:00)
[2017-08-17] MEDS: AMLODIPINE 5 MG TABLET PO SCH (18:00)
[2017-08-17] MEDS: METOCLOPRAMIDE HCL 10 MG TABLET PO SCH (18:00)
[2017-08-17] MEDS: TIZANIDINE HCL 4 MG TABLET PO SCH (18:00)
[2017-08-17] MEDS: BENAZEPRIL HCL 20 MG TABLET PO SCH (18:00)
--- NOTE | 2017-08-17 18:49 | NUR ---
Pt status post bedside dialysis treatment. Rajinder treatment well, removed 3L. LFA AV shunt pressure dressings in place, without active bleeding noted. No s/s of acute distress noted. Will endorse to noc nurse.
[2017-08-17 20:00] VITALS: BP 132/84
[2017-08-17] MEDS: HYDROCODONE/APAP 5-325MG TABLET PO PRN (23:20)
[2017-08-17] MEDS: ZOLPIDEM 5 MG TABLET PO PRN (23:22)
[2017-08-18] VITALS: BP 149/92
[2017-08-18 04:00] VITALS: BP 147/91
--- NOTE | 2017-08-18 05:40 | NUR ---
PT SLEPT WELL THROUGH THE NIGHT, PT COMPLAINED OF HEADACHE, NORCO WAS GIVEN AND WAS EFFECTIVE, PT DENIED HAVING ANY DIFFICULTY BREATHING. PT DENIED HAVING ANY NAUSEA, NO EPISODES OF VOMITING NOTED, PT WAS ABLE TO TOLERATE HIS DINNER WELL. AV SHUNT DRESSING IS DRY CLEAN AND INTACT, ALL NEEDS MET, SAFETY MEASURES ARE IN PLACE, CALL LIGHT WITHIN REACH, BED ALARM IS ON.
[2017-08-18] MEDS: METOCLOPRAMIDE HCL 10 MG TABLET PO SCH ×4 (06:31→17:26)
--- NOTE | 2017-08-18 06:33 | NUR ---
PT REFUSED TO TAKE HIS REGLAN, STATING HE WILL TAKE WITH BREAKFAST. PT DENIES HAVING ANY NAUSEA AT THIS TIME.
[2017-08-18 06:50] LABS: BASOPHILS % (AUTO) 0.6 % (0.0-2.0); EOSINOPHILS # (AUTO) 0.1 K/uL (0.0-0.7); EOSINOPHILS % (AUTO) 4.1 % (0.0-7.0); HEMATOCRIT 24.2 % (36.7-47.1); HEMOGLOBIN 8.4 g/dL (12.5-16.3); LYMPHOCYTES % (AUTO) 34.6 % (20.5-51.5); MEAN CORPUSCULAR HEMOGLOBIN 31.2 uug (23.8-33.4); MEAN CORPUSCULAR HGB CONC 35 g/dL (32.5-36.3); MEAN CORPUSCULAR VOLUME 89.8 fL (73.0-96.2); MONOCYTES # (AUTO) 0.3 K/uL (2.0-10.0); MONOCYTES % (AUTO) 10.9 % (0.0-11.0); NEUTROPHILS # (AUTO) 1.5 K/uL (1.8-8.9); NEUTROPHILS % (AUTO) 49.8 % (38.5-71.5); PLATELET COUNT (AUTO) 259 K/uL (152-348)
[2017-08-18 06:55] LABS: MAGNESIUM 2.4 mg/dL (1.8-2.4); POTASSIUM 4.9 mmol/L (3.5-5.1)
[2017-08-18 07:00] LABS: CREATININE 11.9 mg/dL (0.6-1.3); PHOSPHOROUS 8.4 mg/dL (2.5-4.9)
[2017-08-18] MEDS: FOLIC ACID/VITAMIN B COMP W-C TABLET PO SCH (08:38)
[2017-08-18] MEDS: PAROXETINE HCL 10 MG TABLET PO SCH (08:38)
[2017-08-18] MEDS: BENAZEPRIL HCL 20 MG TABLET PO SCH (08:39)
[2017-08-18] MEDS: AMLODIPINE 5 MG TABLET PO SCH ×2 (08:40→17:27)
[2017-08-18] MEDS: TIZANIDINE HCL 4 MG TABLET PO SCH ×2 (08:40→17:26)
[2017-08-18] MEDS: ONDANSETRON 4 MG/2 ML VIAL IV PRN ×2 (08:40→20:03)
[2017-08-18] MEDS: CALCIUM ACETATE 667 MG CAPSULE PO SCH ×3 (08:46→17:26)
--- NOTE | 2017-08-18 09:24 | NUR ---
PT RESTING IN BED. REGLAN ADMINISTERED WITH BREAKFAST. C/O NAUSEA, PRN ZOFRAN ADMINISTERED. PT NOTED WITH A/V SHUNT IN THE L FOREARM. CALL LIGHT WITHIN REACH. WILL CONTINUE TO MONITOR.
--- NOTE | 2017-08-18 09:30 | NUR ---
START HD AT BEDSIDE LESLIE PROCEDURE WELL NO PAIN OR SOB RESTING
--- NOTE | 2017-08-18 13:00 | NUR ---
HD FINISHED TAKE OUT 2500ML EAT LUNCH MOD AMT STATE PAIN MED HELP TO RELIEF PAIN
[2017-08-18] MEDS: LABETALOL HCL 200 MG TABLET PO SCH ×2 (13:35→21:21)
[2017-08-18] MEDS: HYDROCODONE/APAP 5-325MG TABLET PO PRN (13:39)
[2017-08-18 15:30] VITALS: BP 156/85
[2017-08-18] MEDS: PANTOPRAZOLE SODIUM 40 MG TABLET.DR PO SCH (17:26)
--- NOTE | 2017-08-18 17:30 | NUR ---
STABLE HEMODYNAMIC STATUS ,PAIN UNDER CONTROL NO ACUTE DISTRESS OR CHEST PAIN SAFETY MEASURE PROVIDED CALL LIGHT IN REACH
--- NOTE | 2017-08-18 19:20 | NUR ---
Sleeping during initial rounds but easily arousable when name called. Denies any pain/discomforts at this time. Continue care as planned.
[2017-08-18 19:36] VITALS: BP 123/78
--- NOTE | 2017-08-18 20:03 | NUR ---
Medicated for nausea as needed and ordered. Will monitor.
[2017-08-18] MEDS: ZOLPIDEM 5 MG TABLET PO PRN (22:52)
[2017-08-19] MEDS: HYDROCODONE/APAP 5-325MG TABLET PO PRN ×2 (00:54→04:43)
--- NOTE | 2017-08-19 00:57 | NUR ---
[id number] of generalized pain in scale of 6/10. [place] given as needed and ordered. Will monitor.
[2017-08-19 03:46] VITALS: BP 138/79
[2017-08-19] MEDS: LABETALOL HCL 200 MG TABLET PO SCH (06:00)
--- NOTE | 2017-08-19 06:16 | NUR ---
Patient refused Trandate at this time claiming his BP is ok and does not want to be lowered. Instructed nurse not to wake him up for the rest of his Am meds. Will endorsed.
--- NOTE | 2017-08-19 08:00 | NUR ---
RESTING QUIET IN BED ,PAIN UNDER CONTROL NO SOB OR RESPIRATORY DISTRESS CALL LIGHT WITHIN REACH AND INSTRUCTION TO CALL WHEN NEEDED
--- NOTE | 2017-08-19 08:30 | NUR ---
DR ALVARES SEEN PATIENT AND ORDER OK TO D/C HOME TODAY ,D/C INSTRUCTION GIVEN REGARDING NEED TO F/U WITH OWN PMD CALL FOR APPIONTMENT AND CONTINUE HOME MEDICINE ,GO TO HD CENTER SCHEDULE AND EDUCATION PK GIVEN ,VERBALIZES UNDERSTAND
[2017-08-19] MEDS: BENAZEPRIL HCL 20 MG TABLET PO SCH (09:00)
[2017-08-19] MEDS: METOCLOPRAMIDE HCL 10 MG TABLET PO SCH ×2 (09:46→11:53)
[2017-08-19] MEDS: PANTOPRAZOLE SODIUM 40 MG TABLET.DR PO SCH (09:46)
[2017-08-19] MEDS: TIZANIDINE HCL 4 MG TABLET PO SCH (09:47)
[2017-08-19] MEDS: AMLODIPINE 5 MG TABLET PO SCH (09:47)
[2017-08-19] MEDS: CALCIUM ACETATE 667 MG CAPSULE PO SCH ×2 (09:47→11:53)
[2017-08-19] MEDS: PAROXETINE HCL 10 MG TABLET PO SCH (09:47)
[2017-08-19] MEDS: FOLIC ACID/VITAMIN B COMP W-C TABLET PO SCH (09:47)
[2017-08-19 11:40] VITALS: BP 111/59
--- NOTE | 2017-08-19 12:00 | NUR ---
EAT LUNCH MOD AMT NO N/V OR PAIN
--- NOTE | 2017-08-19 13:45 | NUR ---
D/C HOME WITH HIS BELONGING CONDITION STABLE HL WAS D/C PRIOR D/C HOME AND SIGNS D/C SHEET
[2017-08-20 07:07] LABS: IMMUNOGLOBULIN M, SERUM 21 mg/dL (20-172)
[2017-08-21 05:07] LABS: *IGG SUBCLASS 1 3447 mg/dL (248-810); *IGG SUBCLASS 2 33 mg/dL (130-555); *IGG SUBCLASS 3 17 mg/dL (15-102); *IGG SUBCLASS 4 <1 mg/dL (2-96); *IMMUNOGLOBULIN G, SERUM 3922 mg/dL (700-1600)
== END 2017-08-19 13:45 | disposition home or self-care (01) | DRG 470 ==
LOC: ER 10:54 → TELE 12:16 → MED 08-18 14:30
PROVIDERS: ADMIT Internal Medicine; ATTEND Internal Medicine
PROC: 5A1D70Z Performance of Urinary Filtration, Intermittent, Less than 6 Hours Per Day (ICD-10-PCS; principal; 2017-08-17)
DX: I13.11 Hypertensive heart and chronic kidney disease without heart failure, with stage 5 chronic kidney disease, or end stage renal disease (principal); N18.6 End stage renal disease; N25.81 Secondary hyperparathyroidism of renal origin; N25.0 Renal osteodystrophy; D63.1 Anemia in chronic kidney disease; Z99.2 Dependence on renal dialysis; Z91.15 Patient's noncompliance with renal dialysis; F17.200 Nicotine dependence, unspecified, uncomplicated; K21.9 Gastro-esophageal reflux disease without esophagitis; G89.4 Chronic pain syndrome; Z91.19 Patient's noncompliance with other medical treatment and regimen; M79.1 Myalgia; K29.70 Gastritis, unspecified, without bleeding
CPT/HCPCS: 36415; 71045; 82784; 83550; 83690; 83735; 84100; 85025; 93005; A4663; J0360; J2270; J2405; J3490; J8597; Q0162

== ENCOUNTER 2017-08-25 07:45 | Emergency (ER) | payer OTHER ==
[~2017-08-25] VITALS: Ht 167.6 cm; Wt 62.8 kg
--- NOTE | 2017-08-25 07:58 | NUR ---
Dr Skaggs at the bedside for MSE.
[2017-08-25] MEDS ORDERED: KETOROLAC TROMETHAMINE 30 MG INJ ONE (08:05)
[2017-08-25] MEDS ORDERED: HYDROMORPHONE 2 MG/1 ML DISP.SYRIN ONE (08:06)
[2017-08-25] MEDS ORDERED: ONDANSETRON 4 MG/2 ML VIAL ONE (08:06)
[2017-08-25 08:34] LABS: BASOPHILS % (AUTO) 0.3 % (0.0-2.0); EOSINOPHILS # (AUTO) 0.2 K/uL (0.0-0.7); EOSINOPHILS % (AUTO) 3.1 % (0.0-7.0); HEMOGLOBIN 8.4 g/dL (12.5-16.3); LYMPHOCYTES # (AUTO) 1.4 K/uL (20.0-40.0); MEAN CORPUSCULAR HEMOGLOBIN 31.3 uug (23.8-33.4); MEAN CORPUSCULAR HGB CONC 35 g/dL (32.5-36.3); MEAN CORPUSCULAR VOLUME 89.2 fL (73.0-96.2); MONOCYTES # (AUTO) 0.5 K/uL (2.0-10.0); MONOCYTES % (AUTO) 9.6 % (0.0-11.0); NEUTROPHILS # (AUTO) 3.2 K/uL (1.8-8.9); PLATELET COUNT (AUTO) 216 K/uL (152-348); RED BLOOD CELL COUNT(AUTO) 2.69 MIL/uL (4.06-5.63); WHITE BLOOD COUNT (AUTO) 5.3 K/uL (3.6-10.2)
--- NOTE | 2017-08-25 08:35 | NUR ---
Patient is resting comfortably in bed with eyes closed, NAD noted.
[2017-08-25 08:50] LABS: POTASSIUM 3.4 mmol/L (3.5-5.1)
[2017-08-25 09:01] LABS: CREATININE 11.2 mg/dL (0.6-1.3)
--- NOTE | 2017-08-25 09:05 | NUR ---
Patient is resting comfortably in bed with eyes closed, NAD noted.
[2017-08-25] MEDS ORDERED: CLONIDINE HCL 0.1 MG TABLET PO ONE (09:15)
[2017-08-25] MEDS ORDERED: CLONIDINE HCL 0.1 MG TABLET ONE (09:18)
[2017-08-25 09:21] VITALS: BP 183/105
--- NOTE | 2017-08-25 09:23 | NUR ---
Patient discharged to home in stable conditon. Written and verbal after care instructions given. Patient verbalizes understanding of instructions. Pt walked out of ER w/ steady gait.
== END 2017-08-25 09:25 | disposition home or self-care (01) ==
LOC: ER 07:45
DX: R07.9 Chest pain, unspecified (principal); I10 Essential (primary) hypertension; K21.9 Gastro-esophageal reflux disease without esophagitis; F17.210 Nicotine dependence, cigarettes, uncomplicated; F12.10 Cannabis abuse, uncomplicated; Z79.899 Other long term (current) drug therapy
CPT/HCPCS: 36415; 71045; 80048; 84484; 85025; 85730; 93005; 99285; A4663; J1170; 70030-TC; J1885; J2405

== ENCOUNTER 2017-09-01 06:11 | Emergency (ER) | payer OTHER ==
[~2017-09-01] VITALS: Ht 170.2 cm; Wt 64.0 kg
[2017-09-01] MEDS ORDERED: CALC500T13 PO (06:28)
[2017-09-01] MEDS ORDERED: ONDANSETRON ODT 4 MG TAB.RAPDIS ONE (06:54)
--- NOTE | 2017-09-01 06:55 | NUR ---
REPORT GIVEN TO [facility] NURSELUIS ANGEL.
[2017-09-01] MEDS ORDERED: ONDANSETRON ODT 4 MG TAB.RAPDIS SL ONE (07:00)
[2017-09-01] MEDS ORDERED: AMLODIPINE 5 MG TABLET PO ONE (07:00)
[2017-09-01 07:09] LABS: BASOPHILS % (AUTO) 0.5 % (0.0-2.0); EOSINOPHILS # (AUTO) 0.2 K/uL (0.0-0.7); EOSINOPHILS % (AUTO) 3.8 % (0.0-7.0); HEMATOCRIT 24.3 % (36.7-47.1); HEMOGLOBIN 8.4 g/dL (12.5-16.3); LYMPHOCYTES # (AUTO) 1.3 K/uL (20.0-40.0); LYMPHOCYTES % (AUTO) 23.8 % (20.5-51.5); MEAN CORPUSCULAR HEMOGLOBIN 31.1 uug (23.8-33.4); MEAN CORPUSCULAR HGB CONC 34 g/dL (32.5-36.3); MEAN CORPUSCULAR VOLUME 90.5 fL (73.0-96.2); MONOCYTES # (AUTO) 0.5 K/uL (2.0-10.0); MONOCYTES % (AUTO) 8.5 % (0.0-11.0); NEUTROPHILS # (AUTO) 3.4 K/uL (1.8-8.9); NEUTROPHILS % (AUTO) 63.4 % (38.5-71.5); PLATELET COUNT (AUTO) 258 K/uL (152-348); RED BLOOD CELL COUNT(AUTO) 2.69 MIL/uL (4.06-5.63); WHITE BLOOD COUNT (AUTO) 5.4 K/uL (3.6-10.2)
[2017-09-01 07:19] LABS: POTASSIUM 4.4 mmol/L (3.5-5.1)
[2017-09-01 07:21] LABS: CREATININE 18.6 mg/dL (0.6-1.3)
[2017-09-01] MEDS ORDERED: AMLODIPINE 5 MG TABLET ONE (07:25)
--- NOTE | 2017-09-01 07:28 | NUR ---
PT IS IN ROOM #2B. PT IS RESTING IN BED COMFORTABLY. NO S/S OF ACUTE DISTRESS AT THIS TIME. CONTINUE TO MONITOR THE PT.
--- NOTE | 2017-09-01 09:22 | NUR ---
PT WAS D/C TO HOME. D/C INSTRUCTIONS GIVEN TO THE PT.
[2017-09-01 09:25] VITALS: BP 149/93
== END 2017-09-01 09:26 | disposition home or self-care (01) ==
LOC: ER 06:21
DX: R11.2 Nausea with vomiting, unspecified (principal); I10 Essential (primary) hypertension; F12.10 Cannabis abuse, uncomplicated; F17.200 Nicotine dependence, unspecified, uncomplicated; Z79.899 Other long term (current) drug therapy
CPT/HCPCS: 36415; 71045; 85025; A4663; Q0162

== ENCOUNTER 2017-09-07 17:19 | Inpatient (IN) | payer OTHER ==
[~2017-09-07] VITALS: Ht 170.2 cm; Wt 63.5 kg
[~2017-09-07 17:19] MED LIST changes: -BENA40TA2 PO; +BENA40TA8 PO; +CALC500T13 PO; -LABE200T PO; +LABE200T5 PO
[2017-09-07] MEDS ORDERED: LABETALOL HCL 100 MG/20 ML VIAL IV ONE (17:45)
--- NOTE | 2017-09-07 17:45 | NUR ---
PT.WAS SEEN BY WITH NEW ORDERS.
[2017-09-07 17:56] LABS: BASOPHILS % (AUTO) 0.9 % (0.0-2.0); EOSINOPHILS # (AUTO) 0.2 K/uL (0.0-0.7); EOSINOPHILS % (AUTO) 3.7 % (0.0-7.0); HEMATOCRIT 22.3 % (36.7-47.1); HEMOGLOBIN 7.5 g/dL (12.5-16.3); LYMPHOCYTES # (AUTO) 1.3 K/uL (20.0-40.0); LYMPHOCYTES % (AUTO) 29.5 % (20.5-51.5); MEAN CORPUSCULAR HEMOGLOBIN 30.6 uug (23.8-33.4); MEAN CORPUSCULAR HGB CONC 33 g/dL (32.5-36.3); MEAN CORPUSCULAR VOLUME 91.5 fL (73.0-96.2); MONOCYTES # (AUTO) 0.6 K/uL (2.0-10.0); MONOCYTES % (AUTO) 13.7 % (0.0-11.0); NEUTROPHILS # (AUTO) 2.3 K/uL (1.8-8.9); NEUTROPHILS % (AUTO) 52.2 % (38.5-71.5); PLATELET COUNT (AUTO) 244 K/uL (152-348); WHITE BLOOD COUNT (AUTO) 4.3 K/uL (3.6-10.2)
[2017-09-07 18:02] LABS: RED BLOOD CELL COUNT(AUTO) 2.44 MIL/uL (4.06-5.63)
[2017-09-07] MEDS ORDERED: LABETALOL HCL 100 MG/20 ML VIAL ONE (18:07)
[2017-09-07 18:24] LABS: BILIRUBIN,DIRECT 0.1 mg/dL (0.0-0.2); BILIRUBIN,TOTAL 0.6 mg/dL (0.2-1.0); POTASSIUM 5.2 mmol/L (3.5-5.1); TOTAL PROTEIN, SERUM 9.3 g/dL (6.4-8.2)
[2017-09-07 18:31] LABS: CREATININE 13.8 mg/dL (0.6-1.3)
[2017-09-07] MEDS ORDERED: HYDROCODONE/APAP 5-325MG TABLET ONE (18:44)
[2017-09-07] MEDS ORDERED: ONDANSETRON IV *ER 4 MG/2 ML VIAL IV ONE (18:45)
[2017-09-07] MEDS ORDERED: MORPHINE SULFATE 4 MG/1 ML DISP.SYRIN IV ONE (18:45)
[2017-09-07] MEDS ORDERED: HYDROCODONE/APAP 10-325 MG TABLET PO ONE (18:45)
[2017-09-07] MEDS ORDERED: MORPHINE SULFATE 4 MG/1 ML DISP.SYRIN ONE (18:50)
[2017-09-07] MEDS ORDERED: ONDANSETRON 4 MG/2 ML VIAL ONE (18:50)
[2017-09-07] MEDS ORDERED: diphenhydrAMINE 50 MG/1 ML VIAL IV ONE (19:00)
[2017-09-07] MEDS ORDERED: hydrALAZINE HCL 20 MG/1 ML VIAL IV ONE (19:15)
[2017-09-07] MEDS ORDERED: hydrALAZINE HCL 20 MG/1 ML VIAL ONE (19:21)
[2017-09-07] MEDS ORDERED: diphenhydrAMINE 50 MG/1 ML VIAL ONE (19:21)
--- NOTE | 2017-09-07 19:27 | NUR ---
Pt. admitted to Telemetry , under care of . Belongs List completed
--- NOTE | 2017-09-07 19:35 | NUR ---
Report given to Pako ELIZALDE on Telemetry
--- NOTE | 2017-09-07 20:30 | NUR ---
Pt receiving dialysis. Patient belongings checked, Full body assessment done. Patient oriented to room. Call light in reach. Bed in low position. No sob noted. No s/s of distress noted. Will continue to monitor.
[2017-09-07] MEDS: diphenhydrAMINE 50 MG/1 ML VIAL IV PRN (22:23)
[2017-09-07 22:41] VITALS: BP 156/88
--- NOTE | 2017-09-07 22:44 | NUR ---
Patient sleeping. No signs and symptoms of pain noted.
--- NOTE | 2017-09-07 23:55 | NUR ---
200ml removed after dialysis. Resting comfortably in bed. Pt reminded to rise slowly from a sitting position. No significant changes noted. Bed in low position. Call light in reach. Will continue to monitor
[2017-09-08 00:06] VITALS: BP 157/83
[2017-09-08] MEDS: MORPHINE SULFATE 2 MG/1 ML DISP.SYRIN IV PRN ×3 (00:12→14:39)
--- NOTE | 2017-09-08 02:00 | NUR ---
Pain medication administered to patient. Medication effective. Pt sleeping comfortably. Bed in low position. Call light in reach. Will continue to monitor.
[2017-09-08 04:45] VITALS: BP 126/57
[2017-09-08 04:48] VITALS: BP 148/86
--- NOTE | 2017-09-08 07:30 | NUR ---
IN BED C/O GENERALIZED PAIN NO SS OF DISTRESS. WILL CONTINUE WITH PAIN MANAGEMENT AND FOLLOW-UP HEMODIALYSIS SCHEDULE
[2017-09-08] MEDS ORDERED: PANTOPRAZOLE SODIUM 40 MG TABLET.DR PO SCH (07:45)
[2017-09-08] MEDS ORDERED: CALCIUM CARBONATE 500 MG TAB.CHEW PO PRN (07:45)
[2017-09-08] MEDS: diphenhydrAMINE 50 MG/1 ML VIAL IV PRN ×2 (09:05→14:38)
[2017-09-08] MEDS: TIZANIDINE HCL 4 MG TABLET PO SCH ×2 (09:13→16:11)
[2017-09-08] MEDS: FOLIC ACID/VITAMIN B COMP W-C TABLET PO SCH (09:13)
[2017-09-08] MEDS: CALCIUM ACETATE 667 MG CAPSULE PO SCH ×3 (09:13→16:11)
[2017-09-08] MEDS: BENAZEPRIL HCL 20 MG TABLET PO SCH (09:14)
[2017-09-08] MEDS: AMLODIPINE 5 MG TABLET PO SCH ×2 (09:14→21:00)
[2017-09-08] MEDS: PAROXETINE HCL 10 MG TABLET PO SCH (09:14)
[2017-09-08] MEDS: NEPRO (VANILLA) 237 ML CAN PO SCH ×4 (09:28→21:00)
--- NOTE | 2017-09-08 11:00 | NUR ---
SEEN BY DR ALVARES SEE NOTES
[2017-09-08 11:55] VITALS: BP 133/74
--- NOTE | 2017-09-08 12:19 | NUR ---
RESTING COMFORTABLY AFTER PAIN MEDS, SR ON MONITOR DENIES CHEST PAIN
[2017-09-08] MEDS: METOCLOPRAMIDE HCL 10 MG TABLET PO SCH ×2 (12:25→16:11)
--- NOTE | 2017-09-08 13:05 | NUR ---
HEMODIALYSIS INITIATED AT THE BEDSIDE.
[2017-09-08 13:36] LABS: BILIRUBIN,TOTAL 0.6 mg/dL (0.2-1.0); MAGNESIUM 2.2 mg/dL (1.8-2.4); PHOSPHOROUS 5.8 mg/dL (2.5-4.9); POTASSIUM 4.8 mmol/L (3.5-5.1); TOTAL PROTEIN, SERUM 8.9 g/dL (6.4-8.2)
[2017-09-08] MEDS: LABETALOL HCL 200 MG TABLET PO SCH ×2 (14:00→22:00)
--- NOTE | 2017-09-08 14:40 | NUR ---
PATIENT C/O NOT FEELING WELL WANTS SUGAR CHECK BY FINGER STICK=92, BS 114/50, C/O SEVERE CANALES 11/09 PRN MEDS GIVEN WITH GOOD RELIEF
--- NOTE | 2017-09-08 14:48 | NUR ---
C/O SEVERE CANALES DURING HD, MEDICATED WITH MORPHINE 2 MG IV WITH GOOD RELIEF, SR ON MONITOR
--- NOTE | 2017-09-08 15:00 | NUR ---
HD COMPLETED BP 125/50, SR ON MONITOR, NO SS OF DISTRESS
[2017-09-08 16:00] VITALS: BP 130/82
[2017-09-08] MEDS: PANTOPRAZOLE SODIUM 40 MG TABLET.DR PO SCH (16:12)
[2017-09-08 20:27] VITALS: BP 92/72
--- NOTE | 2017-09-08 21:55 | NUR ---
Refused blood pressure medication. Blood pressure 123/67 hr 78. Pt verbalized medication "mess up sexuality". Risks and benefits explained x 3.
--- NOTE | 2017-09-08 23:59 | NUR ---
Pt resting in bed. No apparent distress at this time. Pt requested medication for nausea. Given a snack with medication. Pt. requested medication for itching and medication for pain. VS WNL. Bed in low position. Pt instructed to make sure he doesn't get up rapidly. Call light in reach Will continue to monitor.
[2017-09-09 00:33] VITALS: BP 135/83
[2017-09-09] MEDS: MORPHINE SULFATE 2 MG/1 ML DISP.SYRIN IV PRN ×2 (01:44→11:31)
[2017-09-09] MEDS: METOCLOPRAMIDE HCL 10 MG TABLET PO SCH ×3 (01:53→17:08)
[2017-09-09] MEDS: diphenhydrAMINE 50 MG/1 ML VIAL IV PRN (01:53)
--- NOTE | 2017-09-09 02:00 | NUR ---
Pt seen ambulating around the unit. Frequent visual checks for safety. Continues to have tele monitor on showing sinus rhythm hr 81. Pt seen going back to room after walking briefly. No dizziness noted during ambulation. Pt returned to bed. Bed in low position. Call light in reach. VS wnl. Will continue to monitor.
[2017-09-09] MEDS: LABETALOL HCL 200 MG TABLET PO SCH ×3 (05:13→21:48)
[2017-09-09] MEDS: PANTOPRAZOLE SODIUM 40 MG TABLET.DR PO SCH ×2 (05:20→17:07)
[2017-09-09 05:26] VITALS: BP 132/51
[2017-09-09 06:20] LABS: BASOPHILS % (AUTO) 0.5 % (0.0-2.0); EOSINOPHILS # (AUTO) 0.2 K/uL (0.0-0.7); EOSINOPHILS % (AUTO) 4.2 % (0.0-7.0); HEMATOCRIT 26.3 % (36.7-47.1); HEMOGLOBIN 8.8 g/dL (12.5-16.3); LYMPHOCYTES # (AUTO) 1.4 K/uL (20.0-40.0); LYMPHOCYTES % (AUTO) 33.9 % (20.5-51.5); MEAN CORPUSCULAR HEMOGLOBIN 30.5 uug (23.8-33.4); MEAN CORPUSCULAR HGB CONC 33 g/dL (32.5-36.3); MEAN CORPUSCULAR VOLUME 91.5 fL (73.0-96.2); MONOCYTES # (AUTO) 0.5 K/uL (2.0-10.0); MONOCYTES % (AUTO) 12.2 % (0.0-11.0); NEUTROPHILS % (AUTO) 49.2 % (38.5-71.5); PLATELET COUNT (AUTO) 287 K/uL (152-348); RED BLOOD CELL COUNT(AUTO) 2.87 MIL/uL (4.06-5.63)
[2017-09-09 06:25] LABS: BILIRUBIN,TOTAL 0.6 mg/dL (0.2-1.0); MAGNESIUM 2.5 mg/dL (1.8-2.4); POTASSIUM 5.1 mmol/L (3.5-5.1); TOTAL PROTEIN, SERUM 9.9 g/dL (6.4-8.2)
[2017-09-09 06:34] LABS: CREATININE 10.8 mg/dL (0.6-1.3)
[2017-09-09] MEDS: NEPRO (VANILLA) 237 ML CAN PO SCH ×4 (07:13→21:43)
[2017-09-09] MEDS: CALCIUM ACETATE 667 MG CAPSULE PO SCH ×4 (08:19→17:30)
[2017-09-09] MEDS: PAROXETINE HCL 10 MG TABLET PO SCH (08:19)
[2017-09-09] MEDS: TIZANIDINE HCL 4 MG TABLET PO SCH ×2 (08:19→17:27)
[2017-09-09] MEDS: FOLIC ACID/VITAMIN B COMP W-C TABLET PO SCH (08:19)
[2017-09-09] MEDS: BENAZEPRIL HCL 20 MG TABLET PO SCH (08:23)
[2017-09-09] MEDS: AMLODIPINE 5 MG TABLET PO SCH ×2 (08:25→21:00)
--- NOTE | 2017-09-09 08:26 | NUR ---
PATIENT REFUSED HIS BLOOD PRESSURE MEDICATIONS AT THIS TIME BUT TOOK THE REST BLOOD PRESSURE IS 141/61 BENEFITS OF TAKING HIS PRESCRIBED MEDICATIONS EXPLAINED TO HIM AND HE EXPRESSED UNDERSTANDING BUT STILL CHOOSES NOT TO TAKE THEM.PATIENT IS ALERT AND ORIENTED AND HIS RIGHTS TO REFUSE RESPECTED.DR DIA BINGHAM.
--- NOTE | 2017-09-09 10:41 | NUR ---
DR RUIZ WAS HERE TO SEE PATIENT WITH NO NEW ORDERS AT THIS TIME. Addendum: 09/09/17 at 1042 by BRAYDEN MEYER RN DR SONG
[2017-09-09 11:19] VITALS: BP 125/63
--- NOTE | 2017-09-09 12:36 | NUR ---
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
--- NOTE | 2017-09-09 15:57 | NUR ---
PATIENT JUST FINISHED EATING HIS LUNCH AND REQUESTED FOR HIS PHOSLO EVEN THOUGH HE DID NOT WANT TO EAT EARLIER AND SUCH REFUSED THIS MEDICATION GIVEN AT THIS TIME UNSCHEDULED.
[2017-09-09 16:00] VITALS: BP 143/87
--- NOTE | 2017-09-09 17:00 | NUR ---
PHOSLO DUE AT THIS TIME NOT GIVEN BECAUSE PATIENT ATE LUNCH LATE AND HIS 1300 DOSE WAS JUST GIVEN ALMOST 1600 AND HE STATED THAT HE WILL NOT BE EATING DINNER ANYWAYS.
--- NOTE | 2017-09-09 19:25 | NUR ---
RECEIVED SHIFT REPORT FROM TONIO OWEN. PT RESTING IN BED. STABLE AT THIS TIME. Addendum: 09/09/17 at 2002 by MALGORZATA MAE RN NSR ON TELE MONITORING.
[2017-09-09 19:35] VITALS: BP 113/71
--- NOTE | 2017-09-09 21:40 | NUR ---
PT REFUSED AMLODIPINE. V/S 113/71, AZ 77, RR 18, 99% ON ROOM AIR. EXPLAINED RISKS AND BENEFITS. OFFERED X 3, PT STILL REFUSED.
--- NOTE | 2017-09-09 21:42 | NUR ---
PT REFUSED LABETALOL, STATING "I DON'T NEED BLOOD PRESSURE MEDICINE". V/S 129/76, ID 70, RR 18, SPO2 98% ON ROOM AIR. EXPLAINED RISKS AND BENEFITS. OFFERED X 3, PT STILL REFUSED.
[2017-09-09 23:45] VITALS: BP 123/75
[2017-09-10] MEDS: MORPHINE SULFATE 2 MG/1 ML DISP.SYRIN IV PRN ×2 (03:22→13:40)
[2017-09-10 03:40] VITALS: BP 123/71
[2017-09-10] MEDS: diphenhydrAMINE 50 MG/1 ML VIAL IV PRN ×2 (04:04→13:48)
[2017-09-10] MEDS: LABETALOL HCL 200 MG TABLET PO SCH ×3 (06:00→21:41)
[2017-09-10] MEDS: PANTOPRAZOLE SODIUM 40 MG TABLET.DR PO SCH ×2 (06:11→18:21)
--- NOTE | 2017-09-10 06:15 | NUR ---
PT REFUSED LABETALOL. V/S 123/71, HR 68, RR 18, SPO2 99% ON ROOM AIR. EXPLAINED RISKS AND BENEFITS. OFFERED X3, PT STILL REFUSED. Addendum: 09/10/17 at 0616 by MALGORZATA MAE RN PT NSR ON TELE MONITORING.
--- NOTE | 2017-09-10 07:40 | NUR ---
Rec'd pt in bed asleep, arousable to name. A&Ox4. On RA, no SOB noted. ESRD on HD with LFA AV shunt (+) for bruit/thrill. No s/s of bleeding noted. RFA 20g heplock in place and patent. SR on Tele at 67. Admitted for HTN crisis. BP controlled at this time. Per report, recent dx of Multiple Myeloma, awaiting auth for treatment plan. For HD treatment today. Call light within reach. Will monitor for change.
[2017-09-10 08:00] VITALS: BP 157/97
[2017-09-10] MEDS: METOCLOPRAMIDE HCL 10 MG TABLET PO SCH ×3 (08:45→18:21)
[2017-09-10] MEDS: PAROXETINE HCL 10 MG TABLET PO SCH (08:45)
[2017-09-10] MEDS: BENAZEPRIL HCL 20 MG TABLET PO SCH ×2 (08:47→09:00)
[2017-09-10] MEDS: TIZANIDINE HCL 4 MG TABLET PO SCH ×2 (08:47→18:21)
[2017-09-10] MEDS: AMLODIPINE 5 MG TABLET PO SCH ×3 (08:48→20:21)
[2017-09-10] MEDS: CALCIUM ACETATE 667 MG CAPSULE PO SCH ×3 (08:48→18:21)
[2017-09-10] MEDS: FOLIC ACID/VITAMIN B COMP W-C TABLET PO SCH (08:48)
[2017-09-10] MEDS: ONDANSETRON 4 MG/2 ML VIAL IV PRN ×2 (09:01→13:48)
[2017-09-10] MEDS: NEPRO (VANILLA) 237 ML CAN PO SCH ×4 (09:07→21:38)
--- NOTE | 2017-09-10 09:15 | NUR ---
Pt receiving dialysis tx at bedside at this time. No s/s of acute distress noted. marriage and family counselor at bedside.
[2017-09-10 15:30] VITALS: BP 121/78
--- NOTE | 2017-09-10 17:00 | NUR ---
Pt c/o anxiety and requesting for Ativan IV PRN. Paged Dr. Pelayo (on-call) c/o [employer] answering service. Awaiting call back. Pt made aware.
--- NOTE | 2017-09-10 17:08 | NUR ---
Rec'd call from Dr. Pelayo and obtained new order for Ativan 0.5mg IV Q4 hrs PRN Anxiety. Telephone order read back to MD and verified. Noted and carried out. Pt made aware.
[2017-09-10] MEDS ORDERED: LORAZEPAM 2 MG/1 ML VIAL IV PRN (17:15)
--- NOTE | 2017-09-10 18:08 | NUR ---
Pt reported that he just had a dark red, no foul odor, formed small BM x1 episode. Per pt, he is positive it was blood. Instructed pt not to flush next episode for observation purposes. Paged Dr. Pelayo (on-call) c/o answering service. Awaiting call back. No active bleeding noted at this time.
--- NOTE | 2017-09-10 19:33 | NUR ---
Rec'd call back from Dr. Pelayo and relayed pt's change in condition. New order for CBC every 6 hrs x 3, Call MD if HGB <8. Telephone order read back to MD and verified. Noted and carried out. Pt made aware.
--- NOTE | 2017-09-10 19:45 | NUR ---
RECEIVED PATIENT ASLEEP IN BED. NO S/S OF ANY SOB OR RESP. DISTRESS NOTED. VS WNL. WILL CONTINUE TO MONITOR AND ASSESS.
[2017-09-10 20:00] VITALS: BP 119/70
[2017-09-10 20:08] LABS: BASOPHILS % (AUTO) 0.4 % (0.0-2.0); EOSINOPHILS # (AUTO) 0.2 K/uL (0.0-0.7); HEMATOCRIT 25.1 % (36.7-47.1); HEMOGLOBIN 8.4 g/dL (12.5-16.3); LYMPHOCYTES # (AUTO) 1.1 K/uL (20.0-40.0); LYMPHOCYTES % (AUTO) 34.4 % (20.5-51.5); MEAN CORPUSCULAR HEMOGLOBIN 30.3 uug (23.8-33.4); MEAN CORPUSCULAR HGB CONC 33 g/dL (32.5-36.3); MEAN CORPUSCULAR VOLUME 90.8 fL (73.0-96.2); MONOCYTES # (AUTO) 0.3 K/uL (2.0-10.0); MONOCYTES % (AUTO) 10.7 % (0.0-11.0); NEUTROPHILS # (AUTO) 1.6 K/uL (1.8-8.9); NEUTROPHILS % (AUTO) 49.5 % (38.5-71.5); PLATELET COUNT (AUTO) 266 K/uL (152-348); RED BLOOD CELL COUNT(AUTO) 2.76 MIL/uL (4.06-5.63); WHITE BLOOD COUNT (AUTO) 3.2 K/uL (3.6-10.2)
--- NOTE | 2017-09-10 20:30 | NUR ---
PATIENT AWAKE IN BED. A/O X4. PATIENT UPSET BECAUSE LAB KEEPS COMING TO TAKE BLOOD. INFORMED PATIENT THAT MD ORDERED TIMED LAB DRAWS TO MONITOR HIS H&H. PATIENT AGREED AND VERBALIZED UNDERSTANDING. PATIENTS BLOOD PRESSURE IS 119/70. PATIENT REFUSED HS NORVASC. ALL OTHER VSS. CALL LIGHT IN REACH. ALL NEEDS ATTENDED. WILL CONTINUE TO MONITOR AND ASSESS.
--- NOTE | 2017-09-10 21:42 | NUR ---
PATIENT AWAKE IN BED. TRANDATE NOT GIVEN, BP DECREASED 101/62. PATIENT ALSO REFUSED TO TAKE MEDICATION, STATING HIS BP IS TOO LOW TO TAKE. ALL OTHER VSS. WILL CONTINUE TO MONITOR AND ASSESS.
--- NOTE | 2017-09-11 02:30 | NUR ---
PATIENT REFUSED TIMED BLOOD DRAW. PATIENT EDUCATED ON THE IMPORTANCE OF BLOOD DRAW TO MONITOR CBC FOR BLEEDING. PATIENT STILL REFUSED AT THIS TIME. WILL CONTINUE TO MONITOR.
[2017-09-11] MEDS: ONDANSETRON 4 MG/2 ML VIAL IV PRN (04:07)
[2017-09-11] MEDS: MORPHINE SULFATE 2 MG/1 ML DISP.SYRIN IV PRN (04:07)
--- NOTE | 2017-09-11 04:10 | NUR ---
PATIENT AWAKE IN BED. C/O PAIN AND NAUSEA. PATIENT GIVEN MORPHINE 2MG IV AND ZOFRAN 4MG IV PRN PER COMPUTER LABORATORY TECHNICIAN. VS WNL. WILL CONTINUE TO MONITOR.
[2017-09-11 04:39] VITALS: BP 135/93
--- NOTE | 2017-09-11 05:30 | NUR ---
PATIENT RESTING IN BED. MEDICATION EFFECTIVE. NO C/O PAIN OR DISCOMFORT AT THIS TIME. ALL NEEDS ATTENDED.
[2017-09-11] MEDS: LABETALOL HCL 200 MG TABLET PO SCH (06:00)
[2017-09-11] MEDS: PANTOPRAZOLE SODIUM 40 MG TABLET.DR PO SCH ×2 (06:22→08:54)
--- NOTE | 2017-09-11 07:25 | NUR ---
Rec'd pt in bed asleep. Easily arousable to name. No s/s of acute distress noted. Pt without further episode of bloody stool during nocshift. Denies pain at this time. All safety precautions in place. Will continue to monitor for change.
[2017-09-11 08:00] VITALS: BP 127/80
[2017-09-11] MEDS: CALCIUM ACETATE 667 MG CAPSULE PO SCH ×2 (08:00→12:00)
[2017-09-11] MEDS: NEPRO (VANILLA) 237 ML CAN PO SCH ×2 (08:52→12:25)
[2017-09-11] MEDS: FOLIC ACID/VITAMIN B COMP W-C TABLET PO SCH (08:54)
[2017-09-11] MEDS: BENAZEPRIL HCL 20 MG TABLET PO SCH (08:54)
[2017-09-11] MEDS: AMLODIPINE 5 MG TABLET PO SCH (08:54)
[2017-09-11] MEDS: METOCLOPRAMIDE HCL 10 MG TABLET PO SCH ×2 (08:55→12:25)
[2017-09-11] MEDS: TIZANIDINE HCL 4 MG TABLET PO SCH (08:55)
[2017-09-11] MEDS: PAROXETINE HCL 10 MG TABLET PO SCH (08:55)
--- NOTE | 2017-09-11 11:04 | NUR ---
Pt with order for discharge. Pt made aware.
[2017-09-11 11:06] VITALS: BP 132/80
--- NOTE | 2017-09-11 12:55 | NUR ---
Assisted pt to the lobby, refused w/c. Pt ambulatory, no s/s of acute distress noted. LFA AV shunt (+) bruit/thrill. No s/s active bleeding noted. Denies nausea and dizziness. Left with his discharge summary, instructions, and all his belongings/valuables. ID band and IV site removed.
[2017-09-12 01:10] LABS: *IGG SUBCLASS 1 3159 mg/dL (248-810); *IGG SUBCLASS 2 30 mg/dL (130-555); *IGG SUBCLASS 3 15 mg/dL (15-102); *IGG SUBCLASS 4 1 mg/dL (2-96); *IMMUNOGLOBULIN G, SERUM 3671 mg/dL (700-1600)
== END 2017-09-11 13:00 | disposition home or self-care (01) | DRG 199 ==
LOC: ER 17:22 → TELE 19:40 → MED 09-10 17:36
PROVIDERS: ADMIT Internal Medicine; ATTEND Internal Medicine
PROC: 5A1D70Z Performance of Urinary Filtration, Intermittent, Less than 6 Hours Per Day (ICD-10-PCS; principal; 2017-09-07)
DX: I16.0 Hypertensive urgency (principal); N18.6 End stage renal disease; C90.00 Multiple myeloma not having achieved remission; N25.81 Secondary hyperparathyroidism of renal origin; N25.0 Renal osteodystrophy; I12.0 Hypertensive chronic kidney disease with stage 5 chronic kidney disease or end stage renal disease; Z99.2 Dependence on renal dialysis; K21.9 Gastro-esophageal reflux disease without esophagitis; G89.4 Chronic pain syndrome; D63.1 Anemia in chronic kidney disease; Z79.899 Other long term (current) drug therapy; D63.8 Anemia in other chronic diseases classified elsewhere; Z91.19 Patient's noncompliance with other medical treatment and regimen; F32.9 Major depressive disorder, single episode, unspecified; F41.9 Anxiety disorder, unspecified
CPT/HCPCS: 36415; 70030-TC; 71045; 83735; 84100; 85025; 85730; 90937; 93005; A4663; J0360; J1200; J2060; J2270; J2405; J3490; J8597

== ENCOUNTER 2017-09-15 08:14 | Emergency (ER) | payer OTHER ==
[~2017-09-15] VITALS: Ht 170.2 cm; Wt 64.0 kg
[2017-09-15] MEDS ORDERED: ONDANSETRON 4 MG/2 ML VIAL ONE (09:12)
[2017-09-15] MEDS ORDERED: ONDANSETRON 4 MG/2 ML VIAL IV ONE ×2 (09:15)
[2017-09-15 09:27] LABS: BASOPHILS % (AUTO) 0.2 % (0.0-2.0); EOSINOPHILS # (AUTO) 0.2 K/uL (0.0-0.7); EOSINOPHILS % (AUTO) 3.7 % (0.0-7.0); HEMATOCRIT 24.6 % (36.7-47.1); HEMOGLOBIN 8.7 g/dL (12.5-16.3); LYMPHOCYTES # (AUTO) 1.1 K/uL (20.0-40.0); LYMPHOCYTES % (AUTO) 23.6 % (20.5-51.5); MEAN CORPUSCULAR HEMOGLOBIN 31.4 uug (23.8-33.4); MEAN CORPUSCULAR HGB CONC 36 g/dL (32.5-36.3); MEAN CORPUSCULAR VOLUME 88.6 fL (73.0-96.2); MONOCYTES # (AUTO) 0.6 K/uL (2.0-10.0); MONOCYTES % (AUTO) 12.5 % (0.0-11.0); NEUTROPHILS # (AUTO) 2.7 K/uL (1.8-8.9); PLATELET COUNT (AUTO) 254 K/uL (152-348); RED BLOOD CELL COUNT(AUTO) 2.78 MIL/uL (4.06-5.63); WHITE BLOOD COUNT (AUTO) 4.5 K/uL (3.6-10.2)
[2017-09-15 09:43] LABS: BILIRUBIN,DIRECT 0.1 mg/dL (0.0-0.2); BILIRUBIN,TOTAL 0.6 mg/dL (0.2-1.0); POTASSIUM 3.6 mmol/L (3.5-5.1); TOTAL PROTEIN, SERUM 10.1 g/dL (6.4-8.2)
[2017-09-15] MEDS ORDERED: LORAZEPAM 2 MG/1 ML VIAL IV ONE (09:45)
[2017-09-15 09:46] LABS: CREATININE 7.5 mg/dL (0.6-1.3)
--- NOTE | 2017-09-15 09:49 | NUR ---
Pt resting in rney with NAD noted. Pt requested Ativan which was ordered by and given as ordered. Pending lab/xray results.
[2017-09-15] MEDS ORDERED: LORAZEPAM 2 MG/1 ML VIAL ONE (09:50)
--- NOTE | 2017-09-15 10:30 | NUR ---
IV removed. Catheter intact and site benign. Pressure and 4x4 gauze applied to site. No bleeding noted.
--- NOTE | 2017-09-15 10:34 | NUR ---
Patient discharged to home in stable conditon. Written and verbal after care instructions given. Patient verbalizes understanding of instructions. Stressed follow up with pmd or return to ER for worsening s/s.
== END 2017-09-15 10:37 | disposition home or self-care (01) ==
LOC: ER 08:14
DX: M25.50 Pain in unspecified joint (principal); E87.1 Hypo-osmolality and hyponatremia; L29.8 Other pruritus; I10 Essential (primary) hypertension; K21.9 Gastro-esophageal reflux disease without esophagitis; F17.200 Nicotine dependence, unspecified, uncomplicated; F12.10 Cannabis abuse, uncomplicated; Z79.899 Other long term (current) drug therapy
CPT/HCPCS: 36415; 71045; 72190; 73560; 80048; 80076; 83690; 84100; 84484; 85025; 93005; 96374; 96375; 99285; A4663; J2060; J2405; 70030-TC

== ENCOUNTER 2017-09-18 15:35 | Inpatient (IN) | payer OTHER ==
[~2017-09-18] VITALS: Ht 170.2 cm; Wt 67.1 kg
[2017-09-18] MEDS ORDERED: diphenhydrAMINE 50 MG/1 ML VIAL IM ONE (16:30)
[2017-09-18] MEDS ORDERED: MORPHINE SULFATE 4 MG/1 ML DISP.SYRIN IM ONE (16:30)
[2017-09-18 16:33] LABS: BASOPHILS % (AUTO) 0.3 % (0.0-2.0); EOSINOPHILS # (AUTO) 0.3 K/uL (0.0-0.7); EOSINOPHILS % (AUTO) 4.7 % (0.0-7.0); LYMPHOCYTES # (AUTO) 1.4 K/uL (20.0-40.0); LYMPHOCYTES % (AUTO) 22.2 % (20.5-51.5); MEAN CORPUSCULAR HEMOGLOBIN 30.7 uug (23.8-33.4); MEAN CORPUSCULAR HGB CONC 34 g/dL (32.5-36.3); MEAN CORPUSCULAR VOLUME 90.4 fL (73.0-96.2); MONOCYTES # (AUTO) 0.6 K/uL (2.0-10.0); MONOCYTES % (AUTO) 9.7 % (0.0-11.0); NEUTROPHILS # (AUTO) 3.9 K/uL (1.8-8.9); NEUTROPHILS % (AUTO) 63.1 % (38.5-71.5); PLATELET COUNT (AUTO) 236 K/uL (152-348); WHITE BLOOD COUNT (AUTO) 6.2 K/uL (3.6-10.2)
[2017-09-18] MEDS ORDERED: diphenhydrAMINE 50 MG/1 ML VIAL ONE (16:36)
[2017-09-18] MEDS ORDERED: MORPHINE SULFATE 4 MG/1 ML DISP.SYRIN ONE (16:37)
[2017-09-18 16:41] LABS: POTASSIUM 5.8 mmol/L (3.5-5.1)
[2017-09-18 16:42] LABS: RED BLOOD CELL COUNT(AUTO) 2.17 MIL/uL (4.06-5.63)
[2017-09-18 16:43] LABS: HEMATOCRIT 19.6 % (36.7-47.1); HEMOGLOBIN 6.7 g/dL (12.5-16.3)
[2017-09-18 16:46] LABS: CREATININE 18.6 mg/dL (0.6-1.3)
[2017-09-18 16:47] LABS: BILIRUBIN,DIRECT 0.1 mg/dL (0.0-0.2); BILIRUBIN,TOTAL 0.6 mg/dL (0.2-1.0); TOTAL PROTEIN, SERUM 8.7 g/dL (6.4-8.2)
--- NOTE | 2017-09-18 17:25 | NUR ---
pt refused ct scan, dr johnson aware. dr easton's group grabiel and dr kern to call back
[2017-09-18 18:48] LABS: BAND % (MANUAL) 4 % (0-10); EOSINOPHILS % (MANUAL) 4 % (0-8); LYMPHOCYTES % (MANUAL) 25 % (20-40); MONOCYTES % (MANUAL) 6 % (2-10); NEUTROPHILS % (MANUAL) 61 % (42-75)
--- NOTE | 2017-09-18 18:51 | NUR ---
called 2nd floor to give report, not allowed, was informed, pm shift assignment done.
--- NOTE | 2017-09-18 19:09 | NUR ---
sbar report to kallie abrams.
--- NOTE | 2017-09-18 19:38 | NUR ---
Pt. admitted to [facility] , under care of Dr. RAMON. Diagnosis: Hyperkalemia Belongs List completed report given to Brandi ELIZALDE
[2017-09-18 20:03] VITALS: BP 197/113
[2017-09-18] MEDS ORDERED: CALCIUM CARBONATE 500 MG TAB.CHEW PO PRN (21:00)
[2017-09-18] MEDS ORDERED: diphenhydrAMINE 50 MG/1 ML VIAL IV PRN (21:00)
--- NOTE | 2017-09-18 21:00 | NUR ---
RECEIVED PATIENT TO TELE FLOOR. BELONGINGS LIST COMPLETE. PATIENT IS A&OX4. IS REQUESTING "THE STRONGEST PAIN MEDICINE" AND STATES PAIN IS 10/10 IN THE HEAD. DIALYSIS SHUNT ON LEFT ARM AND IV 20 TO RFA. PATIENT IS AMBULATORY AND IS ABLE TO MAKE NEEDS KNOWN. ORIENTED PATIENT TO UNIT AND USE OF CALL LIGHT AND TV CONTROLS. PAGED DR BOWERS FOR ADMITTING ORDERS
[2017-09-18] MEDS: LABETALOL HCL 200 MG TABLET PO SCH (23:20)
[2017-09-18] MEDS: ONDANSETRON 4 MG/2 ML VIAL IV PRN (23:40)
[2017-09-19] VITALS (15 sets, daily range): BP systolic 118–180; BP diastolic 75–110
[2017-09-19] MEDS ORDERED: HYDROMORPHONE 1 MG/1 ML DISP.SYRIN IV PRN (03:15)
[2017-09-19] MEDS: HYDROMORPHONE 2 MG/1 ML DISP.SYRIN IV PRN ×3 (03:47→21:22)
[2017-09-19] MEDS: LABETALOL HCL 200 MG TABLET PO SCH ×3 (06:41→21:21)
[2017-09-19] MEDS: METOCLOPRAMIDE HCL 10 MG TABLET PO SCH ×3 (06:41→17:36)
--- NOTE | 2017-09-19 06:55 | NUR ---
PT CONTINUING TO REFUSE TO WEAR TELE MONITOR. HE TOOK IT OFF AND SAID IT MADE HIM ITCHY. REFUSED MORNING LABS. WILL HAVE DIALYSIS THIS MORNING. WILL HAVE DIALYSIS NURSE DRAW BLOOD. PT HAD EMESIS X2 LAST NIGHT. WAS GIVEN ZOFRAN LAST NIGHT AND THIS MORNING REGLAN.
--- NOTE | 2017-09-19 07:44 | NUR ---
Patient currently on dialysis procedure. Patient is alert, in no distress BP 182/121 HR 80.
[2017-09-19] MEDS: CALCIUM ACETATE 667 MG CAPSULE PO SCH ×3 (09:00→17:35)
--- NOTE | 2017-09-19 09:06 | NUR ---
Patient on dialysis procedure, temporarily unable to administer medications. Will administer once dialysis is completed. export manager at bedside.
[2017-09-19] MEDS: AMLODIPINE 5 MG TABLET PO SCH ×2 (10:49→17:36)
[2017-09-19] MEDS: BENAZEPRIL HCL 20 MG TABLET PO SCH (10:50)
[2017-09-19] MEDS: FOLIC ACID/VITAMIN B COMP W-C TABLET PO SCH (10:51)
[2017-09-19] MEDS: PAROXETINE HCL 10 MG TABLET PO SCH (10:51)
[2017-09-19] MEDS: PANTOPRAZOLE SODIUM 40 MG TABLET.DR PO SCH (10:52)
[2017-09-19] MEDS: TIZANIDINE HCL 4 MG TABLET PO SCH ×2 (10:52→17:36)
[2017-09-19] MEDS ORDERED: EPOETIN ALFA 20,000 UNIT/ML ML SQ ONE (12:15)
[2017-09-19] MEDS ORDERED: CLONIDINE HCL 0.2 MG TABLET PO PRN (12:30)
--- NOTE | 2017-09-19 12:30 | NUR ---
1 UNIT PRBC BLOOD TRANSFUSION STARTED. PROTOCOL FOLLOWED. BP 180/104 HR 78 TEMP 98. MD AWARE, MD'S INSTRUCTIONS TO CONTINUE WITH BLOOD TRANSFUSION. PT IS ALERT, IN NO DISTRESS, NO C/O OF CHEST PAIN, SOB. Addendum: 09/19/17 at 1318 by KIERA ALEX RN ADD: WITNESSED BY ANOTHER RN.
--- NOTE | 2017-09-19 12:45 | NUR ---
BLOOD TRANSFUSING, NO S/S OF ADVERSE REACTION, NO C/O OF CHEST PAIN, SOB. WILL CONTINUE TO MONITOR.
--- NOTE | 2017-09-19 15:22 | NUR ---
1 UNIT BLOOD TRANSFUSION COMPLETED. VS STABLE, AFEBRILE. PT TOLERATED PROCEDURE WELL, IN NO DISTRESS, NO S/S OF ADVERSE REACTION.
--- NOTE | 2017-09-19 18:06 | NUR ---
2ND UNIT / BAG OF PRBC BLOOD TRANSFUSION STARTED ORDERED. PROTOCOL FOLLOWED, WITNESSED BY ANOTHER RN.
--- NOTE | 2017-09-19 18:52 | NUR ---
BLOOD TRANSFUSING, PATIENT TOLERATING PROCEDURE WELL, IN NO DISTRESS, NO C/O OF CHEST PAIN, SOB, NO ADVERSE REACTION NOTED. WILL ENDORSE TO ONCOMING SHIFT RN TO COMPLETE BLOOD TRANSFUSION PROCEDURE.
--- NOTE | 2017-09-19 19:10 | NUR ---
RECEIVED PT AWAKE, ALERT, ORIENTED X4. PT SHOWS NO SIGNS OF DISTRESS. IV INTACT AND PATENT. PT ON BLOOD TRANSFUSION. PT TOLERATING IT WELL. CALL LIGHT WITHIN REACH.BED ALARM ON , LOW POSITION, AND SIDE RAILS UPX2 . WILL CONTINUE TO MONITOR.
--- NOTE | 2017-09-19 20:25 | NUR ---
BLOOD TRANSFUSION ENDED. PT VITAL SIGNS WITHIN NORMAL LIMIT. PT AFEBRILE. PT TOLERATED IT WELL AND WITH NO ACUTE DISTRESS. NO ADVERSE REACTION. NO SHORTNESS OF BREATH NOTED. WILL CONTINUE TO MONITOR.
--- NOTE | 2017-09-19 21:22 | NUR ---
PT COMPLAIN OF SEVERE NECK PAIN. PAIN SCALE OF 10/10. GAVE DILAUDID 1MG FOR THE PT DOCTOR PRESCRIBED PRN. . PT STABLE AND VITAL SIGNS WITHIN NORMAL LIMIT. WILL CONTINUE TO MONITOR.
[2017-09-20] MEDS: ONDANSETRON 4 MG/2 ML VIAL IV PRN ×3 (00:39→18:56)
--- NOTE | 2017-09-20 00:39 | NUR ---
PT FEEL NAUSEOUS . GAVE ZOFRAN. PT TOLERATED IT WELL. SAFETY AND COMFORT PROVIDED. WILL CONTINUE TO MONITOR.
[2017-09-20] MEDS: HYDROMORPHONE 2 MG/1 ML DISP.SYRIN IV PRN ×4 (02:21→23:23)
--- NOTE | 2017-09-20 02:21 | NUR ---
PT COMPLAIN OF PAIN SCALE OF 9/10 ON HIS NECK. GAVE DILAUDID 1MG DOCTOR PRESCRIBED PRN . PT TOLERATED IT WELL. PT ZOFRAN MEDICATION EFFECTIVE. PT DOESN'T FEEL DIZZY.SAFETY PROVIDED. VITAL SIGNS WITHIN NORMAL LIMIT. WILL CONTINUE TO MONITOR.
[2017-09-20 04:00] VITALS: BP 151/92
--- NOTE | 2017-09-20 06:17 | NUR ---
PT SLEPT INTERMITTENTLY. PT SHOWS NO SIGNS OF DISTRESS. NO SOB NOTED. PT AFEBRILE. PT VITAL SIGNS WITHIN NORMAL LIMIT. IV INTACT AND PATENT. SAFETY AND COMFORT PROVIDED. ALL NEEDS ARE MET. WILL ENDORSE ACCORDINGLY.
[2017-09-20] MEDS: METOCLOPRAMIDE HCL 10 MG TABLET PO SCH ×3 (06:38→17:25)
[2017-09-20] MEDS: LABETALOL HCL 200 MG TABLET PO SCH ×3 (06:39→21:08)
--- NOTE | 2017-09-20 07:30 | NUR ---
Patient undergoing dialysis procedure, pt is alert, in no distress.
[2017-09-20 08:15] LABS: BASOPHILS % (AUTO) 0.2 % (0.0-2.0); EOSINOPHILS # (AUTO) 0.2 K/uL (0.0-0.7); EOSINOPHILS % (AUTO) 4.5 % (0.0-7.0); HEMATOCRIT 25.7 % (36.7-47.1); LYMPHOCYTES # (AUTO) 1.2 K/uL (20.0-40.0); LYMPHOCYTES % (AUTO) 29.5 % (20.5-51.5); MEAN CORPUSCULAR HEMOGLOBIN 31.2 uug (23.8-33.4); MEAN CORPUSCULAR HGB CONC 35 g/dL (32.5-36.3); MEAN CORPUSCULAR VOLUME 89.6 fL (73.0-96.2); MONOCYTES # (AUTO) 0.4 K/uL (2.0-10.0); MONOCYTES % (AUTO) 9.5 % (0.0-11.0); NEUTROPHILS # (AUTO) 2.4 K/uL (1.8-8.9); NEUTROPHILS % (AUTO) 56.3 % (38.5-71.5); PLATELET COUNT (AUTO) 234 K/uL (152-348); RED BLOOD CELL COUNT(AUTO) 2.87 MIL/uL (4.06-5.63); WHITE BLOOD COUNT (AUTO) 4.2 K/uL (3.6-10.2)
--- NOTE | 2017-09-20 08:30 | NUR ---
Pt on dialysis procedure, BP 151/96 HR 64
[2017-09-20 08:48] LABS: BILIRUBIN,TOTAL 0.9 mg/dL (0.2-1.0); MAGNESIUM 2.2 mg/dL (1.8-2.4); PHOSPHOROUS 5.9 mg/dL (2.5-4.9); POTASSIUM 4.8 mmol/L (3.5-5.1); TOTAL PROTEIN, SERUM 8.5 g/dL (6.4-8.2)
[2017-09-20 08:49] LABS: CREATININE 11.3 mg/dL (0.6-1.3)
[2017-09-20] MEDS: CALCIUM ACETATE 667 MG CAPSULE PO SCH ×3 (09:00→17:27)
--- NOTE | 2017-09-20 09:00 | NUR ---
NON ADMIN, PT ON DIALYSIS
--- NOTE | 2017-09-20 09:38 | NUR ---
PT C/O OF LEFT CHEST/RIB PAIN, PT REQUESTED FOR DILAUDID 1MG. WILL REASSESS AND MONITOR.
[2017-09-20] MEDS: PAROXETINE HCL 10 MG TABLET PO SCH (10:00)
[2017-09-20] MEDS: BENAZEPRIL HCL 20 MG TABLET PO SCH (10:00)
[2017-09-20] MEDS: FOLIC ACID/VITAMIN B COMP W-C TABLET PO SCH (10:00)
[2017-09-20] MEDS: PANTOPRAZOLE SODIUM 40 MG TABLET.DR PO SCH (10:00)
[2017-09-20] MEDS: TIZANIDINE HCL 4 MG TABLET PO SCH ×2 (10:00→17:27)
[2017-09-20] MEDS: AMLODIPINE 5 MG TABLET PO SCH ×2 (10:00→17:27)
--- NOTE | 2017-09-20 10:00 | NUR ---
DIALYSIS PROCEDURE COMPLETED, PT IS NOT FEELING WELL DUE TO VOMITING, NAUSEA. Addendum: 09/20/17 at 1436 by KIERA ALEX RN ADD: DIALYZED 1.8 L
--- NOTE | 2017-09-20 10:00 | NUR ---
PT NOTED TO HAVE VOMITING 200CC. PRN FOR VOMITING/NAUSEA ADMINISTERED. PT REFUSED ORAL MEDICATIONS. INSTRUCTED PT TO TAKE BP MEDICATIONS BUT PT REFUSED. WILL CONTINUE TO MONITOR.
[2017-09-20 11:10] LABS: IRON, SERUM 57 ug/dL (50-175)
[2017-09-20 11:41] VITALS: BP 156/87
--- NOTE | 2017-09-20 15:00 | NUR ---
PT HAS BEEN REFUSING SCHEDULED ORAL MEDICATIONS DUE TO NAUSEA AND PREVIOUS EPISODE OF VOMITING. DISCUSSED WITH PATIENT TO TAKE BP MEDICATIONS BUT PATIENT STATED "LATER". NO FURTHER VOMITING NOTED AT THIS TIME. OFFERED PATIENT LIGHT SNACKS BUT PATIENT REFUSED. KEPT PATIENT COMFORTABLE IN BED, WET/COOL TOWEL TO FRESHEN UP. WILL CONTINUE TO CLOSELY MONITOR VS AND NAUSEA/VOMITING.
[2017-09-20 15:40] VITALS: BP 161/86
--- NOTE | 2017-09-20 18:00 | NUR ---
Patient able to tolerate dinner, able to take oral medications, no c/o of nausea/vomiting, no c/o of chest pain, sob. Dressing on left lower arm/dialysis access clean/dry, no bleeding noted. Safety measures in place.
[2017-09-20 19:00] VITALS: BP 170/99
--- NOTE | 2017-09-20 19:10 | NUR ---
RECEIVED PT AWAKE ON BED, AAOX4, DENIES ANY SOB OR CHEST PAIN, AFEBRILE, IV SITE ON RFA, PATENT AND INTACT. SAFETY MEASURES INITIATED, CALL FOSTER WITHIN REACH.
[2017-09-21] MEDS: ONDANSETRON 4 MG/2 ML VIAL IV PRN (01:21)
[2017-09-21] MEDS: HYDROMORPHONE 2 MG/1 ML DISP.SYRIN IV PRN (03:57)
[2017-09-21 04:00] VITALS: BP 153/91
[2017-09-21] MEDS: LABETALOL HCL 200 MG TABLET PO SCH (05:14)
[2017-09-21 06:12] LABS: *OCCULT BLOOD STOOL NEGATIVE (NEGATIVE)
--- NOTE | 2017-09-21 06:51 | NUR ---
PT AWAKE ON BED, NO SIGNS OF RESPIRATORY DISTRESS NOTED, ALL NEEDS MET AND ATTENDED. SAFETY MEASURES MAINTAINED AT ALL TIMES. CALL FOSTER WITHIN REACH.
[2017-09-21] MEDS: METOCLOPRAMIDE HCL 10 MG TABLET PO SCH ×2 (07:16→12:25)
--- NOTE | 2017-09-21 08:31 | NUR ---
Received patient in bed, awake, alert and oriented x4, in no acute distress. Denies any chest pain or SOB at this time. LFA AV shunt intact, dressing intact. RFA IV site intact, no s/s of infiltration noted. Will continue to monitor.
[2017-09-21] MEDS: TIZANIDINE HCL 4 MG TABLET PO SCH (09:11)
[2017-09-21] MEDS: AMLODIPINE 5 MG TABLET PO SCH (09:11)
[2017-09-21] MEDS: FOLIC ACID/VITAMIN B COMP W-C TABLET PO SCH (09:11)
[2017-09-21] MEDS: PAROXETINE HCL 10 MG TABLET PO SCH (09:12)
[2017-09-21] MEDS: BENAZEPRIL HCL 20 MG TABLET PO SCH (09:13)
[2017-09-21] MEDS: CALCIUM ACETATE 667 MG CAPSULE PO SCH ×2 (09:13→12:25)
[2017-09-21] MEDS: PANTOPRAZOLE SODIUM 40 MG TABLET.DR PO SCH (09:13)
--- NOTE | 2017-09-21 11:26 | NUR ---
Patient scheduled for discharge home today, and is agreeable with POC. Discharge instructions were given to the patient, instructed also to follow up with PCP in one week. When asked if the nurse can set him up an appointment with his PCP, patient declines at this time. Also offered resources regarding specialty clinics to follow up to, however, patient refused at this time. Per patient, "I will find a doctor and set up appointment myself." Pharmacist will come up and educate patient regarding home medications. Call placed to [facility] and confirm patient's chair time of TT at 345AM, patient made aware. Educated patient on the importance of following up with PCP and outpatient dialysis, able to verbalized understanding. Patient also was offered taxi voucher/token, but patient stated, "I will be fine." Patient requested to be discharge at 2PM. Addendum: 09/21/17 at 1408 by MIMI MONTERO RN Left the hospital in stable condition
[2017-09-21 12:00] VITALS: BP 141/79
[2017-09-21 14:17] VITALS: BP 141/79
== END 2017-09-21 14:10 | disposition home or self-care (01) | DRG 470 ==
LOC: ER 15:40 → TELE 19:39 → MED 09-19 11:30
PROVIDERS: ADMIT Internal Medicine; ATTEND Internal Medicine
PROC: 5A1D70Z Performance of Urinary Filtration, Intermittent, Less than 6 Hours Per Day (ICD-10-PCS; principal; 2017-09-19)
PROC: 30233N1 Transfusion of Nonautologous Red Blood Cells into Peripheral Vein, Percutaneous Approach (ICD-10-PCS; principal; 2017-09-19)
DX: I13.11 Hypertensive heart and chronic kidney disease without heart failure, with stage 5 chronic kidney disease, or end stage renal disease (principal); N18.6 End stage renal disease; C90.00 Multiple myeloma not having achieved remission; N25.81 Secondary hyperparathyroidism of renal origin; E87.5 Hyperkalemia; D63.1 Anemia in chronic kidney disease; Z99.2 Dependence on renal dialysis; Z91.15 Patient's noncompliance with renal dialysis; Z91.14 Patient's other noncompliance with medication regimen; Z79.899 Other long term (current) drug therapy; F17.200 Nicotine dependence, unspecified, uncomplicated; G89.4 Chronic pain syndrome; R11.2 Nausea with vomiting, unspecified; M79.1 Myalgia; F12.90 Cannabis use, unspecified, uncomplicated; K21.9 Gastro-esophageal reflux disease without esophagitis; K29.70 Gastritis, unspecified, without bleeding
CPT/HCPCS: 36415; 70030-TC; 71045; 83550; 83735; 84100; 85025; 85730; 86850; 86900; 86901; 86920; 90937; 93005; A4663; J0885; J1170; J1200; J2270; J2405; J7040; J8597; P9016-BL; P9021

== ENCOUNTER 2017-09-24 00:44 | Inpatient (IN) | payer OTHER ==
[~2017-09-24] VITALS: Ht 170.2 cm; Wt 60.8 kg
[2017-09-24] MEDS ORDERED: IV NORMAL SALINE 500 ML BAG IV ONE (01:00)
[2017-09-24] MEDS ORDERED: ONDANSETRON 4 MG/2 ML VIAL IV ONE (01:00)
[2017-09-24] MEDS ORDERED: hydrALAZINE HCL 20 MG/1 ML VIAL IV ONE (01:00)
--- NOTE | 2017-09-24 01:00 | NUR ---
Dr. Dickinson at bedside for MSE.
[2017-09-24] MEDS ORDERED: ONDANSETRON 4 MG/2 ML VIAL ONE (01:13)
[2017-09-24 01:15] LABS: BASOPHILS % (AUTO) 0.3 % (0.0-2.0); EOSINOPHILS # (AUTO) 0.3 K/uL (0.0-0.7); EOSINOPHILS % (AUTO) 6.3 % (0.0-7.0); HEMATOCRIT 28.3 % (36.7-47.1); HEMOGLOBIN 9.5 g/dL (12.5-16.3); LYMPHOCYTES # (AUTO) 1.7 K/uL (20.0-40.0); LYMPHOCYTES % (AUTO) 31.3 % (20.5-51.5); MEAN CORPUSCULAR HEMOGLOBIN 30.8 uug (23.8-33.4); MEAN CORPUSCULAR HGB CONC 34 g/dL (32.5-36.3); MEAN CORPUSCULAR VOLUME 91.3 fL (73.0-96.2); MONOCYTES # (AUTO) 0.6 K/uL (2.0-10.0); MONOCYTES % (AUTO) 10.3 % (0.0-11.0); NEUTROPHILS # (AUTO) 2.8 K/uL (1.8-8.9); NEUTROPHILS % (AUTO) 51.8 % (38.5-71.5); PLATELET COUNT (AUTO) 255 K/uL (152-348); RED BLOOD CELL COUNT(AUTO) 3.09 MIL/uL (4.06-5.63); WHITE BLOOD COUNT (AUTO) 5.5 K/uL (3.6-10.2)
[2017-09-24] MEDS ORDERED: HYDROMORPHONE 1 MG/1 ML DISP.SYRIN IV ONE (01:15)
[2017-09-24] MEDS ORDERED: HYDROMORPHONE 2 MG/1 ML DISP.SYRIN ONE (01:18)
--- NOTE | 2017-09-24 01:20 | NUR ---
Xray at bedside.
--- NOTE | 2017-09-24 01:20 | NUR ---
Calin peacock in ED - 09/24/17 at 0121 by KENDAL Xray at bedside for MSE.
[2017-09-24] MEDS ORDERED: hydrALAZINE HCL 20 MG/1 ML VIAL ONE (01:28)
[2017-09-24] MEDS ORDERED: LABETALOL HCL 100 MG/20 ML VIAL ONE (01:56)
[2017-09-24] MEDS ORDERED: LABETALOL HCL 100 MG/20 ML VIAL IV ONE (02:00)
[2017-09-24 02:16] LABS: BILIRUBIN,DIRECT 0.1 mg/dL (0.0-0.2); BILIRUBIN,TOTAL 0.6 mg/dL (0.2-1.0); POTASSIUM 4.6 mmol/L (3.5-5.1); TOTAL PROTEIN, SERUM 9.9 g/dL (6.4-8.2)
[2017-09-24 02:18] LABS: CREATININE 12.4 mg/dL (0.6-1.3)
--- NOTE | 2017-09-24 03:30 | NUR ---
RECEIVED PATIENT VIA W/C FROM ER. PATIENT IS A/O X4. NO C/O PAIN AT THIS TIME. NO C/O NAUSEA. H/L INTACT AND PATENT, NOTED TO RIGHT FA #20 GAUGE. PLACED ON TELE SR. VSS. ORIENTED TO ROOM AND CALL LIGHT. CALL LIGHT IN REACH. ALL NEEDS ATTENDED. WILL CONTINUE TO MONITOR AND ASSESS.
[2017-09-24 03:49] VITALS: BP 156/95
--- NOTE | 2017-09-24 06:46 | NUR ---
PATIENT ASLEEP IN BED. ON TELE SR. VSS. CALL LIGHT IN REACH. ALL NEEDS ATTENDED. WILL CONTINUE TO MONITOR.
--- NOTE | 2017-09-24 07:29 | NUR ---
RECEIVED REPORT FROM SODA DRY HOUSE OPERATOR, PATIENT IN ROOM ASLEEP. NO ACUTE DISTRESS NOTED. IV ACCESS ON THE RIGHT FA #20 INTACT AND PATENT. NO NAUSEA/VOMITING NOTED PER SODA DRY HOUSE OPERATOR. NO COMPLAINT OF PAIN/DISCOMFORT AT THIS TIME. COMFORT MEASURES PROVIDED. CALL LIGHT WITHIN REACH. WILL CONTINUE TO MONITOR CLOSELY.
[2017-09-24] MEDS ORDERED: CALCIUM CARBONATE 500 MG TAB.CHEW PO PRN (08:00)
[2017-09-24] MEDS: METOCLOPRAMIDE HCL 10 MG TABLET PO SCH ×4 (08:30→16:30)
[2017-09-24] MEDS: PANTOPRAZOLE SODIUM 40 MG TABLET.DR PO SCH ×2 (08:30→08:38)
[2017-09-24] MEDS: TIZANIDINE HCL 4 MG TABLET PO SCH ×3 (08:34→17:00)
[2017-09-24] MEDS: PAROXETINE HCL 10 MG TABLET PO SCH ×2 (08:35→09:00)
[2017-09-24] MEDS: LABETALOL HCL 200 MG TABLET PO SCH ×3 (08:35→17:00)
[2017-09-24] MEDS: AMLODIPINE 5 MG TABLET PO SCH ×2 (08:36→21:00)
[2017-09-24] MEDS: FOLIC ACID/VITAMIN B COMP W-C TABLET PO SCH ×2 (08:36→09:00)
[2017-09-24] MEDS: CALCIUM ACETATE 667 MG CAPSULE PO SCH ×4 (08:37→17:00)
[2017-09-24] MEDS: BENAZEPRIL HCL 20 MG TABLET PO SCH (08:37)
[2017-09-24] MEDS: ONDANSETRON 4 MG/2 ML VIAL IV PRN (08:38)
[2017-09-24] MEDS: MORPHINE SULFATE 2 MG/1 ML DISP.SYRIN IV PRN ×3 (09:10→21:34)
[2017-09-24 11:26] VITALS: BP 141/84
--- NOTE | 2017-09-24 14:00 | NUR ---
PATIENT COMPLAINTS OF PAIN AND MORPHINE 2 MG Q4PRN INEFFECTIVE, REQUESTS DILAUDID. CALLED AND PAGED ENZO NEPHDR. DIA MONREAL TOLL TEST WORKER. AWAITING CALL BACK
[2017-09-24 15:48] VITALS: BP 149/87
--- NOTE | 2017-09-24 17:15 | NUR ---
PATIENT IS UPSET, COMPLAINING, YELLING AND AGITATED. STATING THAT HE WANTS TO EAT. EXPLAINED THAT NEED TO OBTAIN ORDER FROM DOCTOR TO CHANGE DIET BEFORE HE CAN EAT. CALLED AND PAGED PAPER PRODUCTS MACHINE OPERATOR. AWAITING CALL BACK.
--- NOTE | 2017-09-24 17:59 | NUR ---
Labetalol not given, patient currently undergoing dialysis. BP 149/87 hr 73.
--- NOTE | 2017-09-24 18:03 | NUR ---
HD COMPLETED, 500 mL TAKEN OUT. PATIENT STABLE CONDITION BP 160/94 HR 74
--- NOTE | 2017-09-24 19:30 | NUR ---
Patient stable at start of shift, lying in bed comfortably with no signs of acute distress. Patient is irritated & angry stating that he wants to eat. Pertinent assessment completed. BP elevated at start of shift at 177/107. Will monitor & reassess. Noted with right forearm 20G IV which is flushing well & patent. Patient has an AV shunt on left forearm for dialysis. Call light within reach. Will continue to monitor through shift.
[2017-09-24 20:43] VITALS: BP 177/107
--- NOTE | 2017-09-24 21:30 | NUR ---
MD Ortiz paged twice, awaiting call back. Patient requesting to eat but is NPO. will f/u with MD & supervisor hide house.
--- NOTE | 2017-09-24 23:30 | NUR ---
MD Ortiz called back with new order. Change to Renal Diet, OK for PO intake. Will carry out order & continue to monitor.
[2017-09-25 00:25] VITALS: BP 156/87
[2017-09-25] MEDS: MORPHINE SULFATE 2 MG/1 ML DISP.SYRIN IV PRN ×2 (03:19→09:15)
[2017-09-25 04:00] VITALS: BP 184/100
[2017-09-25] MEDS: PANTOPRAZOLE SODIUM 40 MG TABLET.DR PO SCH (06:25)
--- NOTE | 2017-09-25 06:30 | NUR ---
Patient noncompliant with medication & care. Refused AM protonix. Explained risks & benefits. Refused x2. All needs attended to promptly. Safety measures maintained. Call light in reach. Will endorse to day shift nurse.
--- NOTE | 2017-09-25 06:32 | NUR ---
Sinus Rhythm on the tele monitor. Currently denies pain & SOB. will endorse accordingly.
--- NOTE | 2017-09-25 07:47 | NUR ---
Sleeping. Tele SR
[2017-09-25] MEDS: LABETALOL HCL 200 MG TABLET PO SCH ×3 (09:00→17:00)
[2017-09-25] MEDS: ONDANSETRON 4 MG/2 ML VIAL IV PRN (09:15)
--- NOTE | 2017-09-25 09:15 | NUR ---
Vomiting. Zofran IV given with relief. Hemodialysis started after
[2017-09-25] MEDS: METOCLOPRAMIDE HCL 10 MG TABLET PO SCH ×3 (09:18→18:24)
[2017-09-25] MEDS: CALCIUM ACETATE 667 MG CAPSULE PO SCH ×3 (09:19→18:25)
[2017-09-25] MEDS: FOLIC ACID/VITAMIN B COMP W-C TABLET PO SCH (09:19)
[2017-09-25] MEDS: PAROXETINE HCL 10 MG TABLET PO SCH (09:19)
[2017-09-25] MEDS: TIZANIDINE HCL 4 MG TABLET PO SCH ×2 (09:20→18:24)
[2017-09-25 11:40] VITALS: BP 143/79
[2017-09-25] MEDS ORDERED: HYDROMORPHONE 1 MG/1 ML DISP.SYRIN IV PRN (12:00)
--- NOTE | 2017-09-25 12:30 | NUR ---
Hemodialysis done with 1500 output.
[2017-09-25] MEDS: HYDROMORPHONE 2 MG/1 ML DISP.SYRIN IV PRN ×3 (13:23→23:59)
[2017-09-25] MEDS: AMLODIPINE 5 MG TABLET PO SCH ×2 (13:25→20:03)
[2017-09-25] MEDS: BENAZEPRIL HCL 20 MG TABLET PO SCH (13:25)
--- NOTE | 2017-09-25 13:25 | NUR ---
Awake, nauseated, and will not eat, not taking phoslo po. BP 133/70 , refused taking BP medications. Complaining of leg pain. Dilaudid 0.5 mg IV given.
[2017-09-25 15:34] VITALS: BP 153/90
--- NOTE | 2017-09-25 18:44 | NUR ---
Able to eat dinner. Feeling better. Tele discontinued
[2017-09-25 19:48] VITALS: BP 148/89
--- NOTE | 2017-09-25 21:08 | NUR ---
Patient appears to be resting comfortably in bed. VS wnl. Patient requested pain medication. Medication administered and effective. Call light in reach. Will continue to monitor.
--- NOTE | 2017-09-26 01:20 | NUR ---
Pt seen ambulating about the unit. Assisted back to room. Pt AV fistula noted with no active bleeding. Bruit and thrill present. IV site on right forearm intact and patent. No complaints of pain noted at this time. Breathing even and unlabored. Lungs clear on auscultation. Vs WNL. Will continue to monitor.
[2017-09-26 03:48] VITALS: BP 154/95
[2017-09-26] MEDS: METOCLOPRAMIDE HCL 10 MG TABLET PO SCH ×3 (06:53→16:30)
[2017-09-26] MEDS: PANTOPRAZOLE SODIUM 40 MG TABLET.DR PO SCH (06:53)
[2017-09-26] MEDS: HYDROMORPHONE 2 MG/1 ML DISP.SYRIN IV PRN ×2 (06:58→16:30)
--- NOTE | 2017-09-26 07:41 | NUR ---
Awake, resting after pain medication was given.
[2017-09-26] MEDS: CALCIUM ACETATE 667 MG CAPSULE PO SCH ×2 (10:07→12:00)
[2017-09-26] MEDS: AMLODIPINE 5 MG TABLET PO SCH (10:08)
[2017-09-26] MEDS: BENAZEPRIL HCL 20 MG TABLET PO SCH (10:08)
[2017-09-26] MEDS: FOLIC ACID/VITAMIN B COMP W-C TABLET PO SCH (10:08)
[2017-09-26] MEDS: PAROXETINE HCL 10 MG TABLET PO SCH (10:09)
[2017-09-26] MEDS: TIZANIDINE HCL 4 MG TABLET PO SCH ×2 (10:09→16:36)
[2017-09-26] MEDS: LABETALOL HCL 200 MG TABLET PO SCH ×3 (10:09→16:36)
[2017-09-26] MEDS: ONDANSETRON 4 MG/2 ML VIAL IV PRN ×2 (10:12→16:29)
[2017-09-26 11:40] VITALS: BP 166/95
--- NOTE | 2017-09-26 12:00 | NUR ---
With discharge order to home, self care. Refuses to be discharged. Nancy FRAGOSO explained process of discharge and will agree to go home before dinner.
[2017-09-26 15:24] VITALS: BP 138/94
--- NOTE | 2017-09-26 17:17 | NUR ---
Accepted discharge order after explanation. DC instruction given, verbalized understanding. Saline lock removed.
--- NOTE | 2017-09-26 18:21 | NUR ---
Saline lock removed. Went home per ambulatory in fair condition, not in distress, afebrile
== END 2017-09-26 18:00 | disposition home or self-care (01) | DRG 470 ==
LOC: ER 00:47 → TELE 02:20 → MED 09-25 17:08
PROVIDERS: ADMIT Internal Medicine Nephrology; ATTEND Internal Medicine
PROC: 5A1D70Z Performance of Urinary Filtration, Intermittent, Less than 6 Hours Per Day (ICD-10-PCS; principal; 2017-09-24)
DX: I13.11 Hypertensive heart and chronic kidney disease without heart failure, with stage 5 chronic kidney disease, or end stage renal disease (principal); C90.00 Multiple myeloma not having achieved remission; N18.6 End stage renal disease; N25.81 Secondary hyperparathyroidism of renal origin; Z99.2 Dependence on renal dialysis; G89.4 Chronic pain syndrome; Z87.01 Personal history of pneumonia (recurrent); F17.200 Nicotine dependence, unspecified, uncomplicated; D63.8 Anemia in other chronic diseases classified elsewhere; K29.70 Gastritis, unspecified, without bleeding; Z91.19 Patient's noncompliance with other medical treatment and regimen; Z79.899 Other long term (current) drug therapy; R94.31 Abnormal electrocardiogram [ECG] [EKG]
CPT/HCPCS: 36415; 70030-TC; 71045; 83690; 85025; 85730; 90937; 93005; A4663; J0360; J1170; J2270; J2405; J3490; J7040; J8597

== ENCOUNTER 2017-10-03 14:32 | Inpatient (IN) | payer OTHER ==
[~2017-10-03] VITALS: Ht 170.2 cm; Wt 65.8 kg
[2017-10-03 16:13] LABS: BASOPHILS % (AUTO) 0.4 % (0.0-2.0); EOSINOPHILS # (AUTO) 0.3 K/uL (0.0-0.7); EOSINOPHILS % (AUTO) 6.2 % (0.0-7.0); HEMATOCRIT 27.4 % (36.7-47.1); HEMOGLOBIN 9.3 g/dL (12.5-16.3); LYMPHOCYTES # (AUTO) 1.7 K/uL (20.0-40.0); LYMPHOCYTES % (AUTO) 31.7 % (20.5-51.5); MEAN CORPUSCULAR HEMOGLOBIN 30.9 uug (23.8-33.4); MEAN CORPUSCULAR HGB CONC 34 g/dL (32.5-36.3); MEAN CORPUSCULAR VOLUME 91.3 fL (73.0-96.2); MONOCYTES # (AUTO) 0.5 K/uL (2.0-10.0); NEUTROPHILS # (AUTO) 2.9 K/uL (1.8-8.9); NEUTROPHILS % (AUTO) 52.7 % (38.5-71.5); PLATELET COUNT (AUTO) 160 K/uL (152-348); WHITE BLOOD COUNT (AUTO) 5.5 K/uL (3.6-10.2)
[2017-10-03] MEDS ORDERED: CLONIDINE HCL 0.2 MG TABLET PO ONE (16:15)
[2017-10-03] MEDS ORDERED: HYDROMORPHONE 1 MG/1 ML DISP.SYRIN IV ONE (16:15)
[2017-10-03] MEDS ORDERED: HYDROMORPHONE 2 MG/1 ML DISP.SYRIN ONE (16:21)
[2017-10-03] MEDS ORDERED: CLONIDINE HCL 0.2 MG TABLET ONE (16:22)
[2017-10-03 16:27] LABS: BILIRUBIN,DIRECT 0.2 mg/dL (0.0-0.2); BILIRUBIN,TOTAL 0.7 mg/dL (0.2-1.0); TOTAL PROTEIN, SERUM 9.2 g/dL (6.4-8.2)
[2017-10-03 16:33] LABS: CREATININE 14.8 mg/dL (0.6-1.3)
[2017-10-03] MEDS ORDERED: DEXTROSE 50% 50 ML DISP.SYRIN IV ONE (16:45)
[2017-10-03] MEDS ORDERED: CALCIUM CHLORIDE 1 GM/10 ML DISP.SYRIN IVP ONE ×2 (16:45→17:10)
[2017-10-03] MEDS ORDERED: INSULIN REGULAR, HUMAN 1,000 UNITS/10 ML VIAL IV ONE (16:45)
[2017-10-03] MEDS ORDERED: DEXTROSE 50% 50 ML DISP.SYRIN ONE (17:09)
[2017-10-03] MEDS ORDERED: INSULIN REGULAR, HUMAN 300 UNIT/3 ML VIAL ONE (17:10)
[2017-10-03] MEDS: ONDANSETRON IV *ER 4 MG/2 ML VIAL IV ONE ×2 (17:17→17:19)
[2017-10-03] MEDS ORDERED: ONDANSETRON 4 MG/2 ML VIAL ONE (17:20)
[2017-10-03 17:58] VITALS: BP 194/113
[2017-10-03 20:01] VITALS: BP 187/114
[2017-10-03] MEDS ORDERED: ACETAMINOPHEN 325 MG TABLET PO PRN (21:00)
[2017-10-03] MEDS ORDERED: ZOLPIDEM 5 MG TABLET PO PRN (21:00)
[2017-10-03] MEDS ORDERED: MAGNESIUM HYDROXIDE 30 ML LIQUID UDC PO PRN (21:00)
[2017-10-03] MEDS ORDERED: ONDANSETRON 4 MG/2 ML VIAL IV PRN (21:00)
[2017-10-03] MEDS ORDERED: Z GUARD REMEDY PASTE 57 GM TUBE TOP PRN (21:00)
[2017-10-03] MEDS ORDERED: CALCIUM CARBONATE 500 MG TAB.CHEW PO PRN (21:15)
[2017-10-04] VITALS: BP 200/129
[2017-10-04] MEDS ORDERED: LABETALOL HCL 200 MG TABLET PO ONE (00:15)
[2017-10-04] MEDS ORDERED: AMLODIPINE 5 MG TABLET PO ONE (00:15)
[2017-10-04] MEDS ORDERED: CLONIDINE HCL 0.1 MG TABLET PO PRN (00:15)
[2017-10-04] MEDS: HYDROCODONE/APAP 5-325MG TABLET PO PRN ×3 (03:04→16:57)
[2017-10-04 04:00] VITALS: BP 139/104
[2017-10-04 04:37] LABS: BASOPHILS % (AUTO) 0.2 % (0.0-2.0); EOSINOPHILS # (AUTO) 0.3 K/uL (0.0-0.7); EOSINOPHILS % (AUTO) 7.7 % (0.0-7.0); HEMATOCRIT 29.8 % (36.7-47.1); HEMOGLOBIN 9.8 g/dL (12.5-16.3); LYMPHOCYTES # (AUTO) 0.9 K/uL (20.0-40.0); LYMPHOCYTES % (AUTO) 23.5 % (20.5-51.5); MEAN CORPUSCULAR HEMOGLOBIN 30.5 uug (23.8-33.4); MEAN CORPUSCULAR HGB CONC 33 g/dL (32.5-36.3); MEAN CORPUSCULAR VOLUME 92.7 fL (73.0-96.2); MONOCYTES # (AUTO) 0.4 K/uL (2.0-10.0); MONOCYTES % (AUTO) 9.4 % (0.0-11.0); NEUTROPHILS # (AUTO) 2.3 K/uL (1.8-8.9); NEUTROPHILS % (AUTO) 59.2 % (38.5-71.5); PLATELET COUNT (AUTO) 140 K/uL (152-348); RED BLOOD CELL COUNT(AUTO) 3.22 MIL/uL (4.06-5.63); WHITE BLOOD COUNT (AUTO) 3.9 K/uL (3.6-10.2)
[2017-10-04 04:42] LABS: MAGNESIUM 2.5 mg/dL (1.8-2.4); PHOSPHOROUS 6.6 mg/dL (2.5-4.9)
[2017-10-04 04:50] LABS: CREATININE 12.1 mg/dL (0.6-1.3)
[2017-10-04] MEDS: METOCLOPRAMIDE HCL 5 MG TABLET PO SCH ×3 (06:32→16:08)
[2017-10-04 07:29] VITALS: BP 135/85
[2017-10-04] MEDS: LABETALOL HCL 200 MG TABLET PO SCH ×3 (08:47→16:12)
[2017-10-04] MEDS: PAROXETINE HCL 10 MG TABLET PO SCH (08:47)
[2017-10-04] MEDS: CALCIUM ACETATE 667 MG CAPSULE PO SCH ×3 (08:47→16:12)
[2017-10-04] MEDS: PANTOPRAZOLE SODIUM 40 MG TABLET.DR PO SCH (08:47)
[2017-10-04] MEDS: TIZANIDINE HCL 4 MG TABLET PO SCH ×2 (08:48→16:12)
[2017-10-04] MEDS: FOLIC ACID/VITAMIN B COMP W-C TABLET PO SCH (08:48)
[2017-10-04] MEDS: AMLODIPINE 5 MG TABLET PO SCH ×2 (08:48→16:12)
[2017-10-04] MEDS ORDERED: CALCIUM CARBONATE 500 MG TAB.CHEW PO PRN (10:45)
[2017-10-04 11:16] VITALS: BP 131/85
[2017-10-04] MEDS: ENALAPRIL 10 MG TABLET PO SCH (12:26)
[2017-10-04 15:36] VITALS: BP 139/96
[2017-10-04] MEDS: diphenhydrAMINE 25 MG CAP PO PRN (16:56)
[2017-10-04 19:00] VITALS: BP 117/83
[2017-10-04] MEDS: NEPRO (VANILLA) 237 ML CAN PO SCH (21:42)
[2017-10-05] MEDS: HYDROCODONE/APAP 5-325MG TABLET PO PRN ×2 (00:09→08:46)
[2017-10-05] MEDS: diphenhydrAMINE 25 MG CAP PO PRN ×2 (00:21→08:46)
[2017-10-05 04:00] VITALS: BP 149/92
[2017-10-05] MEDS: METOCLOPRAMIDE HCL 5 MG TABLET PO SCH ×3 (06:54→16:58)
[2017-10-05] MEDS: NEPRO (VANILLA) 237 ML CAN PO SCH ×4 (08:40→20:58)
[2017-10-05] MEDS: CALCIUM ACETATE 667 MG CAPSULE PO SCH ×3 (08:41→16:51)
[2017-10-05] MEDS: LABETALOL HCL 200 MG TABLET PO SCH ×3 (08:42→16:52)
[2017-10-05] MEDS: PAROXETINE HCL 10 MG TABLET PO SCH (08:42)
[2017-10-05] MEDS: PANTOPRAZOLE SODIUM 40 MG TABLET.DR PO SCH (08:42)
[2017-10-05] MEDS: FOLIC ACID/VITAMIN B COMP W-C TABLET PO SCH (08:42)
[2017-10-05] MEDS: AMLODIPINE 5 MG TABLET PO SCH ×2 (08:42→16:53)
[2017-10-05] MEDS: TIZANIDINE HCL 4 MG TABLET PO SCH ×2 (08:42→16:52)
[2017-10-05] MEDS: ENALAPRIL 10 MG TABLET PO SCH (08:43)
[2017-10-05 11:08] VITALS: BP 134/81
[2017-10-05 15:34] VITALS: BP 124/72
[2017-10-05 20:00] VITALS: BP 145/85
[2017-10-06] MEDS: diphenhydrAMINE 25 MG CAP PO PRN ×2 (01:38→14:52)
[2017-10-06] MEDS: HYDROCODONE/APAP 5-325MG TABLET PO PRN (01:40)
[2017-10-06 04:36] VITALS: BP 153/87
[2017-10-06] MEDS: NEPRO (VANILLA) 237 ML CAN PO SCH ×3 (07:30→16:39)
[2017-10-06] MEDS: METOCLOPRAMIDE HCL 5 MG TABLET PO SCH ×3 (08:30→16:30)
[2017-10-06] MEDS: FOLIC ACID/VITAMIN B COMP W-C TABLET PO SCH (08:32)
[2017-10-06] MEDS: CALCIUM ACETATE 667 MG CAPSULE PO SCH ×3 (08:32→16:40)
[2017-10-06] MEDS: PAROXETINE HCL 10 MG TABLET PO SCH (08:32)
[2017-10-06] MEDS: PANTOPRAZOLE SODIUM 40 MG TABLET.DR PO SCH (08:33)
[2017-10-06] MEDS: ENALAPRIL 10 MG TABLET PO SCH ×2 (08:37→12:24)
[2017-10-06] MEDS: AMLODIPINE 5 MG TABLET PO SCH ×2 (08:37→16:39)
[2017-10-06] MEDS: TIZANIDINE HCL 4 MG TABLET PO SCH ×2 (08:38→16:40)
[2017-10-06] MEDS: LABETALOL HCL 200 MG TABLET PO SCH ×3 (08:38→16:40)
[2017-10-06 11:04] VITALS: BP 145/84
[2017-10-06 15:16] VITALS: BP 156/91
[2017-10-06 16:40] VITALS: BP 152/93
== END 2017-10-06 17:50 | disposition home or self-care (01) | DRG 199 ==
LOC: ER 14:33 → TELE 18:29 → MED 10-04 18:19
PROVIDERS: ADMIT Internal Medicine; ATTEND Internal Medicine
PROC: 5A1D70Z Performance of Urinary Filtration, Intermittent, Less than 6 Hours Per Day (ICD-10-PCS; principal; 2017-10-03)
DX: I16.1 Hypertensive emergency (principal); N18.6 End stage renal disease; C90.00 Multiple myeloma not having achieved remission; N25.81 Secondary hyperparathyroidism of renal origin; E87.5 Hyperkalemia; I13.11 Hypertensive heart and chronic kidney disease without heart failure, with stage 5 chronic kidney disease, or end stage renal disease; Z99.2 Dependence on renal dialysis; Z91.15 Patient's noncompliance with renal dialysis; Z59.0 Homelessness; G89.4 Chronic pain syndrome; K21.9 Gastro-esophageal reflux disease without esophagitis; Z79.899 Other long term (current) drug therapy; Z87.01 Personal history of pneumonia (recurrent); Z91.19 Patient's noncompliance with other medical treatment and regimen; K29.70 Gastritis, unspecified, without bleeding; D63.0 Anemia in neoplastic disease; F17.200 Nicotine dependence, unspecified, uncomplicated
CPT/HCPCS: 36415; 70030-TC; 71045; 83735; 84100; 85025; 85730; 93005; A4663; J1170; J1815; J2405; J3490; J7030; J8597; Q0163

== ENCOUNTER 2017-10-12 07:10 | Inpatient (IN) | payer OTHER ==
[~2017-10-12] VITALS: Ht 167.6 cm; Wt 63.0 kg
[~2017-10-12 07:10] MED LIST changes: -TIZA4TAB4 PO
[2017-10-12 07:50] LABS: BASOPHILS % (AUTO) 0.5 % (0.0-2.0); EOSINOPHILS # (AUTO) 0.2 K/uL (0.0-0.7); HEMATOCRIT 25.7 % (36.7-47.1); HEMOGLOBIN 8.8 g/dL (12.5-16.3); LYMPHOCYTES # (AUTO) 1.6 K/uL (20.0-40.0); LYMPHOCYTES % (AUTO) 31.6 % (20.5-51.5); MEAN CORPUSCULAR HEMOGLOBIN 31.2 uug (23.8-33.4); MEAN CORPUSCULAR HGB CONC 34 g/dL (32.5-36.3); MEAN CORPUSCULAR VOLUME 91.2 fL (73.0-96.2); MONOCYTES # (AUTO) 0.6 K/uL (2.0-10.0); MONOCYTES % (AUTO) 12.3 % (0.0-11.0); NEUTROPHILS # (AUTO) 2.6 K/uL (1.8-8.9); NEUTROPHILS % (AUTO) 51.6 % (38.5-71.5); PLATELET COUNT (AUTO) 227 K/uL (152-348); RED BLOOD CELL COUNT(AUTO) 2.82 MIL/uL (4.06-5.63)
[2017-10-12] MEDS ORDERED: ONDANSETRON 4 MG/2 ML VIAL ONE (08:12)
[2017-10-12] MEDS ORDERED: MORPHINE SULFATE 4 MG/1 ML DISP.SYRIN ONE (08:12)
[2017-10-12] MEDS ORDERED: ONDANSETRON IV *ER 4 MG/2 ML VIAL IV ONE (08:15)
[2017-10-12] MEDS ORDERED: MORPHINE SULFATE 4 MG/1 ML DISP.SYRIN IV ONE (08:15)
[2017-10-12 08:36] LABS: POTASSIUM 5.5 mmol/L (3.5-5.1)
[2017-10-12 08:41] LABS: CREATININE 15.8 mg/dL (0.6-1.3)
[2017-10-12 08:42] LABS: BILIRUBIN,DIRECT 0.1 mg/dL (0.0-0.2); BILIRUBIN,TOTAL 0.6 mg/dL (0.2-1.0); TOTAL PROTEIN, SERUM 9.2 g/dL (6.4-8.2)
[2017-10-12] MEDS ORDERED: CLONIDINE HCL 0.2 MG TABLET PO ONE (08:45)
[2017-10-12] MEDS ORDERED: CLONIDINE HCL 0.2 MG TABLET ONE (08:47)
[2017-10-12] MEDS ORDERED: ASPIRIN 81 MG TAB.CHEW PO ONE (09:45)
[2017-10-12] MEDS ORDERED: ASPIRIN 81 MG TAB.CHEW ONE (09:51)
--- NOTE | 2017-10-12 09:53 | NUR ---
PT TRANSFERED TO FLOOR INSTABLE CONDITION.
[2017-10-12 10:00] VITALS: BP 192/114
--- NOTE | 2017-10-12 10:00 | NUR ---
PATIENT TRANSFERRED ONTO FLOOR IN STABLE CONDITION FROM ER. ELEVATED BP. MD IS NOTIFIED OF PATIENT AND FAMILIAR WITH PATIENT. PLACED ON TELEMETRY. SINUS RHYTHM AT THIS TIME. ID-BAND PLACED, IV-ACCESS PATENT, INTACT. AV SHUNT LEFT FOREARM, NO BP LEFT ARM.
[2017-10-12] MEDS ORDERED: Z GUARD REMEDY PASTE 57 GM TUBE TOP PRN (11:00)
[2017-10-12] MEDS ORDERED: ACETAMINOPHEN 325 MG TABLET PO PRN (11:00)
[2017-10-12] MEDS ORDERED: CALCIUM CARBONATE 500 MG TAB.CHEW PO PRN (11:00)
[2017-10-12] MEDS ORDERED: ZOLPIDEM 5 MG TABLET PO PRN (11:00)
[2017-10-12 12:00] VITALS: BP 175/109
[2017-10-12] MEDS: LABETALOL HCL 200 MG TABLET PO SCH ×2 (12:36→17:00)
[2017-10-12] MEDS: CALCIUM ACETATE 667 MG CAPSULE PO SCH ×2 (12:36→17:00)
[2017-10-12] MEDS: METOCLOPRAMIDE HCL 10 MG TABLET PO SCH ×2 (12:36→16:30)
--- NOTE | 2017-10-12 16:00 | NUR ---
REPORT GIVEN TO TONIO WATSON.
--- NOTE | 2017-10-12 16:06 | NUR ---
received patient from TONIO Kerr. patient asleep, stable upon initial assessment. waiting for dialysis to arrive.
[2017-10-12 16:41] VITALS: BP 138/81
[2017-10-12] MEDS: AMLODIPINE 5 MG TABLET PO SCH (17:00)
--- NOTE | 2017-10-12 17:04 | NUR ---
1700 bp meds held due to patient receiving dialysis at this time from dialysis nurse at bedside. will continue to monitor patient
--- NOTE | 2017-10-12 19:18 | NUR ---
patient stable this shift. no s/s acute distress. patient refused reglan and labs today. dialysis currently at bedside. will endorse to power and recovery shift engineer.
--- NOTE | 2017-10-12 19:45 | NUR ---
RECEIVED PATIENT ASLEEP IN BED RECEIVING DIALYSIS. BP ELEVATED, 161/91. ALL OTHER VSS. NO S/S OF PAIN OR DISCOMFORT. NO RESP. DISTRESS NOTED. H/L INTACT AND PATENT. CALL LIGHT IN REACH. ALL NEEDS ATTENDED. WILL CONTINUE TO MONITOR AND ASSESS.
[2017-10-12 20:00] VITALS: BP 161/91
[2017-10-12] MEDS: HYDROCODONE/APAP 5-325MG TABLET PO PRN (21:16)
[2017-10-12] MEDS: diphenhydrAMINE 25 MG CAP PO PRN (21:22)
--- NOTE | 2017-10-12 22:37 | NUR ---
PATIENT REFUSED TROPONIN LAB DRAW. DIE DESIGNER NOTIFIED. ALL NEEDS ATTENDED.
[2017-10-12] MEDS: CLONIDINE HCL 0.1 MG TABLET PO PRN (23:54)
--- NOTE | 2017-10-12 23:55 | NUR ---
PATIENTS BLOOD PRESSURE 174/105. PATIENT IS ASYMPTOMATIC. PATIENT GIVEN CLONIDINE 0.1MG PO PRN. ALL OTHER VSS. WILL CONTINUE TO MONITOR AND ASSESS.
[2017-10-13] VITALS (7 sets, daily range): BP systolic 154–179; BP diastolic 89–109
--- NOTE | 2017-10-13 04:00 | NUR ---
PATIENTS BLOOD PRESSURE 154/90.
--- NOTE | 2017-10-13 06:20 | NUR ---
PATIENT AWAKE IN BED. ON TELE SR. SLEPT WELL, CALL LIGHT IN REACH. ALL NEEDS ATTENDED. WILL CONTINUE TO MONITOR AND ASSESS.
[2017-10-13 06:35] LABS: BASOPHILS % (AUTO) 0.4 % (0.0-2.0); EOSINOPHILS # (AUTO) 0.2 K/uL (0.0-0.7); EOSINOPHILS % (AUTO) 5.5 % (0.0-7.0); HEMATOCRIT 25.8 % (36.7-47.1); HEMOGLOBIN 8.9 g/dL (12.5-16.3); LYMPHOCYTES # (AUTO) 1.3 K/uL (20.0-40.0); LYMPHOCYTES % (AUTO) 33.1 % (20.5-51.5); MEAN CORPUSCULAR HEMOGLOBIN 31.1 uug (23.8-33.4); MEAN CORPUSCULAR HGB CONC 34 g/dL (32.5-36.3); MEAN CORPUSCULAR VOLUME 90.7 fL (73.0-96.2); MONOCYTES # (AUTO) 0.4 K/uL (2.0-10.0); MONOCYTES % (AUTO) 9.3 % (0.0-11.0); NEUTROPHILS # (AUTO) 2.1 K/uL (1.8-8.9); NEUTROPHILS % (AUTO) 51.7 % (38.5-71.5); PLATELET COUNT (AUTO) 254 K/uL (152-348); RED BLOOD CELL COUNT(AUTO) 2.85 MIL/uL (4.06-5.63)
[2017-10-13 06:59] LABS: MAGNESIUM 2.3 mg/dL (1.8-2.4); PHOSPHOROUS 6.7 mg/dL (2.5-4.9); POTASSIUM 5.2 mmol/L (3.5-5.1)
[2017-10-13 07:01] LABS: CREATININE 12.7 mg/dL (0.6-1.3)
--- NOTE | 2017-10-13 07:15 | NUR ---
Received patient in bed, asleep, in no acute distress. NSR on monitor, HR of 75. IV site on RH intact. VLADISLAV AV shunt in place. Will continue to monitor
[2017-10-13] MEDS: METOCLOPRAMIDE HCL 10 MG TABLET PO SCH ×3 (07:30→16:30)
[2017-10-13] MEDS: LABETALOL HCL 200 MG TABLET PO SCH ×4 (08:10→17:00)
--- NOTE | 2017-10-13 08:30 | NUR ---
Patient refused morning meds including BP meds, BP noted at 179/109, in no acute distress. Denies chest pain, c/o headache. Patient only took Labetalol 200 mg, refused the rest of morning meds. R&B explained, offered x3, patient still refused, stated "I take too many pills, I will only take Labetalol." Dr. Cervantes in the unit, made him aware of patient's refusal and BP of 179/109. Will continue to monitor
[2017-10-13] MEDS: AMLODIPINE 5 MG TABLET PO SCH ×2 (09:00→17:00)
[2017-10-13] MEDS ORDERED: Medication Not On Formulary EA (Benazepril Hcl 40 MG) PO SCH (09:00)
[2017-10-13] MEDS: FOLIC ACID/VITAMIN B COMP W-C TABLET PO SCH (09:00)
[2017-10-13] MEDS: PANTOPRAZOLE SODIUM 40 MG TABLET.DR PO SCH (09:00)
[2017-10-13] MEDS: BENAZEPRIL HCL 20 MG TABLET PO SCH (09:00)
[2017-10-13] MEDS: CALCIUM ACETATE 667 MG CAPSULE PO SCH ×4 (09:00→18:49)
[2017-10-13] MEDS: PAROXETINE HCL 10 MG TABLET PO SCH (09:00)
--- NOTE | 2017-10-13 12:35 | NUR ---
Patient c/o severe headache and generalized body pain, offered [place] for pain management, however, patient refused, stated "I don't wanna take pain medication thru mouth, I want it thru IV." Placed a call to Dr. Pelayo and made him aware, per MD, patient is not to get any IV pain medication at this time. Patient made aware. CN made aware.
[2017-10-13] MEDS: HYDROCODONE/APAP 5-325MG TABLET PO PRN (13:15)
--- NOTE | 2017-10-13 14:30 | NUR ---
Hemodialysis nurse here, patient to start on HD
--- NOTE | 2017-10-13 17:30 | NUR ---
Hemodialysis done at this time, 2L output. Patient is alert and oriented x4, in no acute distress. BP noted at 159/98 HR of 75. patient refused his evening meds. R&B explained. offered x3, still refused. Will continue to monitor
[2017-10-13] MEDS: diphenhydrAMINE 25 MG CAP PO PRN (18:49)
--- NOTE | 2017-10-13 19:20 | NUR ---
RECEIVED PATIENT LYING IN BED. AAOX4. IN NO ACUTE DISTRESS. REINFORCED TAPE ON IV SITE. IV SITE ON RIGHT HAND INTACT AND PATENT. SAFETY MEASURE INITIATED AND CALL FOSTER WITHIN REACH.
[2017-10-13] MEDS: CLONIDINE HCL 0.1 MG TABLET PO PRN (21:27)
--- NOTE | 2017-10-13 22:30 | NUR ---
PATIENT BP WAS 177/107 AND WENT DOWN TO 164/98 AFTER CLONIDINE 0.1MG GIVEN PER PRN ORDER.
[2017-10-14] MEDS: HYDROCODONE/APAP 5-325MG TABLET PO PRN ×2 (02:32→10:31)
[2017-10-14] MEDS: diphenhydrAMINE 25 MG CAP PO PRN ×2 (02:33→11:35)
[2017-10-14 04:00] VITALS: BP 147/97
--- NOTE | 2017-10-14 06:24 | NUR ---
AAOX4. IN NO ACUTE DISTRESS. IV SITE ON RIGHT HAND REMAINS INTACT AND PATENT. SAFETY MEASURE MAINTAINED AND CALL FOSTER WITHIN REACH.
[2017-10-14] MEDS: METOCLOPRAMIDE HCL 10 MG TABLET PO SCH ×3 (06:40→16:11)
[2017-10-14 08:52] LABS: BASOPHILS % (AUTO) 0.4 % (0.0-2.0); EOSINOPHILS # (AUTO) 0.3 K/uL (0.0-0.7); EOSINOPHILS % (AUTO) 6.2 % (0.0-7.0); HEMATOCRIT 27.6 % (36.7-47.1); HEMOGLOBIN 9.4 g/dL (12.5-16.3); LYMPHOCYTES # (AUTO) 1.3 K/uL (20.0-40.0); LYMPHOCYTES % (AUTO) 29.2 % (20.5-51.5); MEAN CORPUSCULAR HGB CONC 34 g/dL (32.5-36.3); MEAN CORPUSCULAR VOLUME 90.8 fL (73.0-96.2); MONOCYTES # (AUTO) 0.4 K/uL (2.0-10.0); NEUTROPHILS # (AUTO) 2.5 K/uL (1.8-8.9); NEUTROPHILS % (AUTO) 55.2 % (38.5-71.5); PLATELET COUNT (AUTO) 262 K/uL (152-348); RED BLOOD CELL COUNT(AUTO) 3.04 MIL/uL (4.06-5.63); WHITE BLOOD COUNT (AUTO) 4.5 K/uL (3.6-10.2)
[2017-10-14 08:57] LABS: AMYLASE 568 U/L (25-115); LIPASE 1067 U/L (73-393)
[2017-10-14 08:59] LABS: BILIRUBIN,TOTAL 0.6 mg/dL (0.2-1.0); MAGNESIUM 2.4 mg/dL (1.8-2.4); PHOSPHOROUS 7.7 mg/dL (2.5-4.9); POTASSIUM 5.4 mmol/L (3.5-5.1); TOTAL PROTEIN, SERUM 8.9 g/dL (6.4-8.2)
[2017-10-14 09:00] LABS: CREATININE 11.1 mg/dL (0.6-1.3)
[2017-10-14] MEDS: LABETALOL HCL 200 MG TABLET PO SCH ×3 (09:00→16:12)
[2017-10-14] MEDS: BENAZEPRIL HCL 20 MG TABLET PO SCH (09:00)
[2017-10-14] MEDS: PANTOPRAZOLE SODIUM 40 MG TABLET.DR PO SCH (10:25)
[2017-10-14] MEDS: PAROXETINE HCL 10 MG TABLET PO SCH (10:25)
[2017-10-14] MEDS: AMLODIPINE 5 MG TABLET PO SCH ×2 (10:25→16:11)
[2017-10-14] MEDS: FOLIC ACID/VITAMIN B COMP W-C TABLET PO SCH (10:25)
[2017-10-14] MEDS: CALCIUM ACETATE 667 MG CAPSULE PO SCH ×3 (10:26→16:11)
[2017-10-14 12:00] VITALS: BP 161/91
[2017-10-14] MEDS ORDERED: IV D5/ 0.9% NACL 1,000 ML IV SCH (13:30)
[2017-10-14] MEDS ORDERED: IV D5/ 0.9% NACL 1,000 ML IV PRN (13:30)
[2017-10-14 16:00] VITALS: BP 167/97
--- NOTE | 2017-10-14 17:00 | NUR ---
PT REFUSING THE MEDICATION MADE AWARE
[2017-10-14] MEDS: ONDANSETRON 4 MG/2 ML VIAL IV PRN (19:03)
--- NOTE | 2017-10-14 19:20 | NUR ---
RECEIVED SHIFT REPORT FROM DEBBIE VILLATORO. PT IN BED, DENIES PAIN, C/P, SOB. PT C/O NAUSEA. PER DEBBIE VILLATORO, PT HAD ONE EPISODE OF VOMITING AROUND 1900. PT STABLE AT THIS TIME. BED IN LOW AND LOCKED POSITION WITH BILATERAL UPPER SIDERAILS UP. CALL LIGHT WITHIN REACH.
--- NOTE | 2017-10-14 19:45 | NUR ---
PT V/S 175/107, HR 77, RR 18, TEMP 98.7, SPO2 97%. PT REFUSING PRN CLONIDINE PO, STATING HE DOESN'T WANT ANYTHING BY MOUTH. ON-CALL PHYSICIAN, HERMINIA, MADE AWARE. RECEIVED ORDERS FOR HYDRALAZINE 10 MG IV Q6H PRN FOR SBP > 160. NOTIFIED BY PHARMACY THAT HYDRALAZINE IV IS NOT AVAILABLE. MADE AWARE, RECEIVED ORDER FOR CLONIDINE PATCH 0.1 MG QWEEKLY. CLONIDINE PATCH OFFERED TO PT, PT REFUSED. RISKS AND BENEFITS EXPLAINED. OFFERED X3, PROVIDED TEACHING, PT STILL REFUSED. PT IS ASYMPTOMATIC AT THIS TIME. PT'S BP IS CHRONICALLY ELEVATED. WILL CONTINUE TO MONITOR.
[2017-10-14 20:00] VITALS: BP 175/107
[2017-10-14] MEDS: CLONIDINE-TTS 1 PATCH TD SCH ×3 (20:15→20:45)
[2017-10-14] MEDS: CLONIDINE HCL 0.1 MG TABLET PO PRN (22:48)
--- NOTE | 2017-10-14 22:49 | NUR ---
PT REQUESTS BP MEDS, STATING HE DIDN'T TAKE HIS LABETALOL EARLIER TODAY. UPON V/S CHECK, BP 191/119, HR 81. PT IS ASYMPTOMATIC. PRN CLONIDINE ADMIN. WILL CONTINUE TO MONITOR.
--- NOTE | 2017-10-15 00:15 | NUR ---
PT'S V/S POST PRN CLONIDINE 175/101, HR 77. PT IS ASYMPTOMATIC. MD MADE AWARE. WILL CONTINUE TO MONITOR.
--- NOTE | 2017-10-15 04:17 | NUR ---
PT'S V/S 181/110, HR 72. PT REMAINS HYPERTENSIVE, STILL ASYMPTOMATIC. DENIES PAIN, HEADACHE, SOB, N/V. MD IS AWARE OF PT'S CHRONIC HTN. PT STILL REFUSING CLONIDINE PATCH STATING "I DON'T LIKE THE ITCHINESS". WILL CONTINUE TO MONITOR AND PROVIDE PT TEACHING RE BP CONTROL.
[2017-10-15 04:40] VITALS: BP 207/121
[2017-10-15] MEDS: AMLODIPINE 5 MG TABLET PO SCH ×2 (09:00→15:50)
[2017-10-15] MEDS: LABETALOL HCL 200 MG TABLET PO SCH ×3 (09:00→15:51)
[2017-10-15] MEDS: BENAZEPRIL HCL 20 MG TABLET PO SCH (09:00)
[2017-10-15] MEDS: METOCLOPRAMIDE HCL 10 MG TABLET PO SCH ×3 (09:36→15:50)
[2017-10-15] MEDS: CALCIUM ACETATE 667 MG CAPSULE PO SCH ×3 (09:36→16:00)
[2017-10-15] MEDS: PAROXETINE HCL 10 MG TABLET PO SCH (09:36)
[2017-10-15] MEDS: FOLIC ACID/VITAMIN B COMP W-C TABLET PO SCH (09:36)
[2017-10-15] MEDS: PANTOPRAZOLE SODIUM 40 MG TABLET.DR PO SCH (09:36)
[2017-10-15] MEDS: diphenhydrAMINE 25 MG CAP PO PRN (09:36)
--- NOTE | 2017-10-15 09:38 | NUR ---
air valve mechanic at the bedside with the pt for dialysis treatment. Pt stable and nad noted.
[2017-10-15 10:15] LABS: BASOPHILS % (AUTO) 0.4 % (0.0-2.0); EOSINOPHILS # (AUTO) 0.3 K/uL (0.0-0.7); EOSINOPHILS % (AUTO) 7.1 % (0.0-7.0); HEMATOCRIT 24.1 % (36.7-47.1); HEMOGLOBIN 8.2 g/dL (12.5-16.3); LYMPHOCYTES % (AUTO) 24.1 % (20.5-51.5); MEAN CORPUSCULAR HEMOGLOBIN 30.4 uug (23.8-33.4); MEAN CORPUSCULAR HGB CONC 34 g/dL (32.5-36.3); MEAN CORPUSCULAR VOLUME 89.8 fL (73.0-96.2); MONOCYTES # (AUTO) 0.4 K/uL (2.0-10.0); MONOCYTES % (AUTO) 9.2 % (0.0-11.0); NEUTROPHILS # (AUTO) 2.5 K/uL (1.8-8.9); NEUTROPHILS % (AUTO) 59.2 % (38.5-71.5); PLATELET COUNT (AUTO) 228 K/uL (152-348); RED BLOOD CELL COUNT(AUTO) 2.69 MIL/uL (4.06-5.63); WHITE BLOOD COUNT (AUTO) 4.3 K/uL (3.6-10.2)
--- NOTE | 2017-10-15 10:18 | NUR ---
Pt reassignment and full SBAR report given to DEBBIE Peck.
[2017-10-15 10:22] LABS: BILIRUBIN,TOTAL 0.6 mg/dL (0.2-1.0); MAGNESIUM 2.4 mg/dL (1.8-2.4); PHOSPHOROUS 7.1 mg/dL (2.5-4.9); POTASSIUM 5.3 mmol/L (3.5-5.1); TOTAL PROTEIN, SERUM 8.6 g/dL (6.4-8.2)
[2017-10-15 10:31] LABS: CREATININE 12.8 mg/dL (0.6-1.3)
[2017-10-15] MEDS: HYDROCODONE/APAP 5-325MG TABLET PO PRN (10:46)
[2017-10-15 11:22] VITALS: BP 165/92
[2017-10-15 15:52] VITALS: BP 186/105
[2017-10-15 18:25] LABS: AMYLASE 378 U/L (25-115); LIPASE 405 U/L (73-393)
[2017-10-15 20:00] VITALS: BP 168/99
--- NOTE | 2017-10-15 21:00 | NUR ---
Nursing Note: Pt ambulating around facility. Pt requested some Nepro. New order for Nepro noted and carried out. Pt assisted back to room. Frequent visual checks.
--- NOTE | 2017-10-16 01:00 | NUR ---
Nursing Note: Pt seen resting in bed. No apparent distress. Bed in low and locked position. Call light in reach. Will continue to monitor.
--- NOTE | 2017-10-16 03:00 | NUR ---
Nursing Note: Pt slept throughout night. No apparent distress. Frequent visual checks. Bed in low and locked position. Call light in reach. Continue to monitor.
[2017-10-16 04:50] VITALS: BP 172/104
[2017-10-16] MEDS: METOCLOPRAMIDE HCL 10 MG TABLET PO SCH (06:55)
[2017-10-16] MEDS: ONDANSETRON 4 MG/2 ML VIAL IV PRN (08:31)
[2017-10-16] MEDS: CALCIUM ACETATE 667 MG CAPSULE PO SCH (08:34)
[2017-10-16] MEDS: PAROXETINE HCL 10 MG TABLET PO SCH (08:34)
[2017-10-16] MEDS: FOLIC ACID/VITAMIN B COMP W-C TABLET PO SCH (08:34)
[2017-10-16] MEDS: LABETALOL HCL 200 MG TABLET PO SCH (08:34)
[2017-10-16 08:35] VITALS: BP 172/104
[2017-10-16] MEDS: BENAZEPRIL HCL 20 MG TABLET PO SCH (08:35)
[2017-10-16] MEDS: AMLODIPINE 5 MG TABLET PO SCH (08:35)
[2017-10-16] MEDS: PANTOPRAZOLE SODIUM 40 MG TABLET.DR PO SCH (08:35)
--- NOTE | 2017-10-16 09:52 | NUR ---
d/c orders received noted and carried out,d/c heplock per md orders.d/c instruction and education given to the pt .pt left the facility via private car in stable condition
== END 2017-10-16 09:45 | disposition home or self-care (01) | DRG 199 ==
LOC: ER 07:10 → TELE 09:44 → MED 10-13 12:50
PROVIDERS: ADMIT Internal Medicine; ATTEND Internal Medicine
PROC: 5A1D70Z Performance of Urinary Filtration, Intermittent, Less than 6 Hours Per Day (ICD-10-PCS; principal; 2017-10-12)
DX: I16.0 Hypertensive urgency (principal); I21.A1 Myocardial infarction type 2; C90.00 Multiple myeloma not having achieved remission; N25.81 Secondary hyperparathyroidism of renal origin; E87.5 Hyperkalemia; K31.84 Gastroparesis; N18.6 End stage renal disease; I12.0 Hypertensive chronic kidney disease with stage 5 chronic kidney disease or end stage renal disease; Z99.2 Dependence on renal dialysis; Z87.01 Personal history of pneumonia (recurrent); Z79.899 Other long term (current) drug therapy; Z91.14 Patient's other noncompliance with medication regimen; K86.9 Disease of pancreas, unspecified; K29.70 Gastritis, unspecified, without bleeding; D64.9 Anemia, unspecified; F17.200 Nicotine dependence, unspecified, uncomplicated; G89.4 Chronic pain syndrome; K62.5 Hemorrhage of anus and rectum; K21.9 Gastro-esophageal reflux disease without esophagitis
CPT/HCPCS: 36415; 70030-TC; 71045; 83690; 83735; 83970; 84100; 85025; 85730; 86301; 90937; 93005; 93307; A4663; J2270; J2405; J7042; J8597; Q0163

== ENCOUNTER 2017-10-25 19:18 | Inpatient (IN) | payer OTHER ==
[~2017-10-25] VITALS: Ht 167.6 cm; Wt 64.4 kg
--- NOTE | 2017-10-25 19:52 | NUR ---
Dr. Rivera at bedside for MSE.
[2017-10-25] MEDS ORDERED: ONDANSETRON 4 MG/2 ML VIAL IV ONE (20:00)
[2017-10-25] MEDS ORDERED: ONDANSETRON 4 MG/2 ML VIAL ONE (20:16)
[2017-10-25 20:43] LABS: BASOPHILS % (AUTO) 0.2 % (0.0-2.0); EOSINOPHILS # (AUTO) 0.3 K/uL (0.0-0.7); EOSINOPHILS % (AUTO) 5.7 % (0.0-7.0); HEMATOCRIT 27.2 % (36.7-47.1); HEMOGLOBIN 9.2 g/dL (12.5-16.3); LYMPHOCYTES # (AUTO) 0.9 K/uL (20.0-40.0); LYMPHOCYTES % (AUTO) 21.1 % (20.5-51.5); MEAN CORPUSCULAR HEMOGLOBIN 30.3 uug (23.8-33.4); MEAN CORPUSCULAR HGB CONC 34 g/dL (32.5-36.3); MONOCYTES # (AUTO) 0.3 K/uL (2.0-10.0); MONOCYTES % (AUTO) 6.3 % (0.0-11.0); NEUTROPHILS % (AUTO) 66.7 % (38.5-71.5); PLATELET COUNT (AUTO) 235 K/uL (152-348); RED BLOOD CELL COUNT(AUTO) 3.02 MIL/uL (4.06-5.63); WHITE BLOOD COUNT (AUTO) 4.5 K/uL (3.6-10.2)
[2017-10-25 20:50] LABS: BILIRUBIN,DIRECT 0.2 mg/dL (0.0-0.2); BILIRUBIN,TOTAL 1.2 mg/dL (0.2-1.0); POTASSIUM 5.3 mmol/L (3.5-5.1); TOTAL PROTEIN, SERUM 10.6 g/dL (6.4-8.2)
[2017-10-25 20:53] LABS: CREATININE 20.3 mg/dL (0.6-1.3)
[2017-10-25 21:03] LABS: AMYLASE 234 U/L (25-115); LIPASE 170 U/L (73-393)
--- NOTE | 2017-10-25 22:00 | NUR ---
Pt. admitted to Telemetry , under care of Dr. Laguna. Diagnosis: Vomiting/Dehydration. Belongs List completed. MRSA swab done. Report given to Rhianna LEWIS.
--- NOTE | 2017-10-25 22:30 | NUR ---
RECEIVED PATIENT VIA GURNEY FROM ER. PATIENT IS A/O X4. DENIES PAIN AT THIS TIME. DENIES NAUSEA AT THIS TIME. WAS PREVIOUSLY MEDICATED WITH IV ZOFRAN IN ER. BP ELEVATED 196/112. PATIENT IS ASYMPTOMATIC. ALL OTHER VSS. HEPLOCK INTACT AND PATENT, NOTED TO RIGHT FA #20 GAUGE. AV SHUNT NOTED TO LEFT FA. PLACED ON TELE ORDERED, SR WITH INVERTED T-WAVES. ORIENTED TO ROOM AND CALL LIGHT. CALL LIGHT IN REACH. ALL NEEDS ATTENDED. WILL CONTINUE TO MONITOR.
[2017-10-25 22:43] VITALS: BP 196/112
--- NOTE | 2017-10-25 22:45 | NUR ---
CALLED OUT TO DR. ALVARES, CONTINUOUS IMPROVEMENT MANAGER FOR ADMISSION ORDERS. WAITING FOR CALL BACK.
[2017-10-25] MEDS ORDERED: ONDANSETRON 4 MG/2 ML VIAL IV PRN (23:15)
[2017-10-25] MEDS ORDERED: MAGNESIUM HYDROXIDE 30 ML LIQUID UDC PO PRN (23:15)
[2017-10-25] MEDS ORDERED: CALCIUM CARBONATE 500 MG TAB.CHEW PO PRN (23:15)
[2017-10-25] MEDS ORDERED: ACETAMINOPHEN 325 MG TABLET PO PRN (23:15)
[2017-10-25] MEDS ORDERED: Z GUARD REMEDY PASTE 57 GM TUBE TOP PRN (23:15)
[2017-10-25] MEDS ORDERED: HYDROCODONE/APAP 5-325MG TABLET PO PRN (23:15)
--- NOTE | 2017-10-25 23:15 | NUR ---
RECEIVED ORDERS PER DR. ALVARES.
--- NOTE | 2017-10-25 23:40 | NUR ---
PATIENT ASLEEP IN BED. EASILY AROUSABLE. RECHECKED PATIENTS BP 153/93. ALL OTHER VSS. WILL CONTINUE TO MONITOR AND ASSESS.
[2017-10-26] VITALS: BP 153/93
[2017-10-26] MEDS: ZOLPIDEM 5 MG TABLET PO PRN (01:36)
[2017-10-26 04:00] VITALS: BP 160/98
--- NOTE | 2017-10-26 06:11 | NUR ---
PATIENT ASLEEP IN BED. ON TELE SR WITH INVERTED T-WAVE. NO S/S OF PAIN OR DISCOMFORT. NO RESP. DISTRESS NOTED. CALL LIGHT IN REACH. ALL NEEDS ATTENDED. WILL CONTINUE TO MONITOR.
[2017-10-26 06:46] LABS: MAGNESIUM 3.1 mg/dL (1.8-2.4); POTASSIUM 4.8 mmol/L (3.5-5.1)
[2017-10-26 06:56] LABS: BASOPHILS % (AUTO) 0.2 % (0.0-2.0); EOSINOPHILS # (AUTO) 0.3 K/uL (0.0-0.7); EOSINOPHILS % (AUTO) 6.4 % (0.0-7.0); HEMATOCRIT 24.8 % (36.7-47.1); HEMOGLOBIN 8.7 g/dL (12.5-16.3); LYMPHOCYTES # (AUTO) 1.7 K/uL (20.0-40.0); MEAN CORPUSCULAR HEMOGLOBIN 31.7 uug (23.8-33.4); MEAN CORPUSCULAR HGB CONC 35 g/dL (32.5-36.3); MEAN CORPUSCULAR VOLUME 90.4 fL (73.0-96.2); MONOCYTES # (AUTO) 0.5 K/uL (2.0-10.0); MONOCYTES % (AUTO) 11.1 % (0.0-11.0); NEUTROPHILS # (AUTO) 2.2 K/uL (1.8-8.9); NEUTROPHILS % (AUTO) 46.3 % (38.5-71.5); PLATELET COUNT (AUTO) 223 K/uL (152-348); RED BLOOD CELL COUNT(AUTO) 2.74 MIL/uL (4.06-5.63); WHITE BLOOD COUNT (AUTO) 4.7 K/uL (3.6-10.2)
[2017-10-26 08:00] VITALS: BP 170/104
[2017-10-26 08:04] LABS: CREATININE 22.3 mg/dL (0.6-1.3)
[2017-10-26] MEDS: PANTOPRAZOLE SODIUM 40 MG TABLET.DR PO SCH (08:54)
[2017-10-26] MEDS: METOCLOPRAMIDE HCL 10 MG TABLET PO SCH ×3 (08:54→17:00)
[2017-10-26] MEDS: FOLIC ACID/VITAMIN B COMP W-C TABLET PO SCH (08:54)
[2017-10-26] MEDS: CALCIUM ACETATE 667 MG CAPSULE PO SCH ×3 (08:54→17:01)
[2017-10-26] MEDS: AMLODIPINE 5 MG TABLET PO SCH ×2 (08:55→17:01)
[2017-10-26] MEDS: BENAZEPRIL HCL 20 MG TABLET PO SCH (08:56)
[2017-10-26] MEDS: LABETALOL HCL 200 MG TABLET PO SCH ×3 (08:56→17:02)
[2017-10-26] MEDS: PAROXETINE HCL 10 MG TABLET PO SCH (08:58)
[2017-10-26] MEDS ORDERED: Medication Not On Formulary EA (Benazepril Hcl 40 MG) PO SCH (09:00)
[2017-10-26 11:47] VITALS: BP 155/91
--- NOTE | 2017-10-26 12:21 | NUR ---
Patient refusing 1130 and 1300 medication dosing stating "I don't want them, you've gave lots of medications in the morning and they're messing up with my sexuality, and that's very important for me" notified.
[2017-10-26 15:14] VITALS: BP 140/88
[2017-10-26 20:06] VITALS: BP 137/83
--- NOTE | 2017-10-26 22:46 | NUR ---
Nursing Note: Patient awake alert oriented at start of shift. No complaints of pain or discomfort at this time. Pt seen by Dialysis nurse and is currently receiving dialysis. Frequent visual checks throughout dialysis. Bed in low and locked position. Call light in reach. Will continue to monitor.
--- NOTE | 2017-10-27 01:00 | NUR ---
Nursing Note: Pt completed dialysis with 500cc removed. No adverse signs and symptoms from dialysis. Bed in low and locked position. Call light in reach. Frequent visual checks. Continue to monitor.
[2017-10-27] MEDS: ZOLPIDEM 5 MG TABLET PO PRN (02:58)
--- NOTE | 2017-10-27 03:45 | NUR ---
Nursing Note: Pt requested medication for sleep. Patient informed that if medication is taken at this time he would be drowsy early in the day. Pt verbalized understanding. Patient not complaining of any nausea or vomiting at this time. No complaints of pain at this time. Bed in a low and locked position. Left arm AV shunt noted with bruit and thrill. Call light in reach. VS within normal limits. Will continue to monitor.
[2017-10-27 04:19] VITALS: BP 134/80
[2017-10-27 08:02] VITALS: BP 155/88
[2017-10-27] MEDS: FOLIC ACID/VITAMIN B COMP W-C TABLET PO SCH (08:25)
[2017-10-27] MEDS: CALCIUM ACETATE 667 MG CAPSULE PO SCH ×3 (08:25→16:18)
[2017-10-27] MEDS: METOCLOPRAMIDE HCL 10 MG TABLET PO SCH ×4 (08:26→16:19)
[2017-10-27] MEDS: PAROXETINE HCL 10 MG TABLET PO SCH (08:26)
[2017-10-27] MEDS: PANTOPRAZOLE SODIUM 40 MG TABLET.DR PO SCH (08:26)
[2017-10-27] MEDS: BENAZEPRIL HCL 20 MG TABLET PO SCH (08:26)
[2017-10-27] MEDS: AMLODIPINE 5 MG TABLET PO SCH ×2 (08:27→16:19)
[2017-10-27] MEDS: LABETALOL HCL 200 MG TABLET PO SCH ×3 (08:27→16:19)
--- NOTE | 2017-10-27 09:20 | NUR ---
culinary internship. at bedside HD in progress.
[2017-10-27] MEDS ORDERED: diphenhydrAMINE 50 MG/1 ML VIAL IV PRN (10:15)
--- NOTE | 2017-10-27 11:30 | NUR ---
pt. with c/o pain and at the time of pain administration pt. refused.
--- NOTE | 2017-10-27 11:31 | NUR ---
refusing reglan at this time after medication open, HD rn at bedside as witness medication wasted.
[2017-10-27 11:45] VITALS: BP 133/86
[2017-10-27 16:10] VITALS: BP 138/90
--- NOTE | 2017-10-27 17:25 | NUR ---
at this time pt with c/of pain and for the 2nd time pt. refusing once medication is about to be administered. industrial furnace fabricator notified. Addendum: 10/27/17 at 1726 by KATHERIN MACIEL RN also notified.
[2017-10-27 20:29] VITALS: BP 124/67
--- NOTE | 2017-10-27 21:00 | NUR ---
Nursing Note: Patient awake alert oriented at start of shift. No complaints of pain or discomfort at this time. . Frequent visual checks throughout dialysis. Bed in low and locked position. Call light in reach. Will continue to monitor.
--- NOTE | 2017-10-28 01:00 | NUR ---
Nursing Note Pt requested medication for sleep. Medication administered. Patient not complaining of any nausea or vomiting at this time. No complaints of pain at this time. Bed in a low and locked position. Left arm AV shunt noted with bruit and thrill. Call light in reach. VS within normal limits. Will continue to monitor.
[2017-10-28] MEDS: ZOLPIDEM 5 MG TABLET PO PRN (01:07)
--- NOTE | 2017-10-28 03:46 | NUR ---
Nursing Note" Pt resting in bed. No complaints of pain or discomfort noted at this time. Bed in low and locked position. Call light in reach. Continue plan of care
[2017-10-28 05:11] VITALS: BP 152/93
[2017-10-28] MEDS: METOCLOPRAMIDE HCL 10 MG TABLET PO SCH ×3 (07:06→16:30)
--- NOTE | 2017-10-28 07:20 | NUR ---
RECEIVED PATIENT IN ROOM, AWAKE, AAOX4 NO ACUTE DISTRESS NOTED. INDEPENDENT WITH ADLS. HD YESTERDAY 1500 CC REMOVED. NO COMPLAINTS OF N/V, PAIN. VITAL SIGNS STABLE. CALL LIGHT WITHIN REACH. WILL CONTINUE TO MONITOR CLOSELY
[2017-10-28] MEDS: LABETALOL HCL 200 MG TABLET PO SCH ×3 (09:00→16:45)
[2017-10-28] MEDS: AMLODIPINE 5 MG TABLET PO SCH ×2 (09:00→16:45)
[2017-10-28] MEDS: BENAZEPRIL HCL 20 MG TABLET PO SCH (09:00)
--- NOTE | 2017-10-28 09:00 | NUR ---
BP MEDS NOT ADMINISTERED, BP 142/81 ME 77, BUE TO BLOOD PRESSURE WITHIN PATIENT'S NORMAL LIMITS. WILL CONTINUE TO MONITOR
[2017-10-28] MEDS: PAROXETINE HCL 10 MG TABLET PO SCH (09:14)
[2017-10-28] MEDS: CALCIUM ACETATE 667 MG CAPSULE PO SCH ×3 (09:14→16:45)
[2017-10-28] MEDS: FOLIC ACID/VITAMIN B COMP W-C TABLET PO SCH (09:14)
[2017-10-28] MEDS: PANTOPRAZOLE SODIUM 40 MG TABLET.DR PO SCH (09:14)
[2017-10-28 16:00] VITALS: BP 152/86
[2017-10-28 16:45] VITALS: BP 174/103
--- NOTE | 2017-10-28 17:10 | NUR ---
PATIENT DISCHARGED IN STABLE CONDITION. DISCHARGE PAPERS AND INSTRUCTIONS GIVEN AND EXPLAINED TO PATIENT. REFUSED TO SCHEDULE FOLLOW UP APPT, STATED THAT HE WOULD LIKE TO SCHED OWN APPT. IV ACCESS REMOVED, ID BAND DISPOSED OFF PROPERLY. BELONGINGS LIST COMPLETED. PATIENT REFUSED TO BE TAKEN DOWN IN WHEELCHAIR. REFUSED 1700 MEDICATIONS. LEFT HOSPITAL IN STABLE CONDITION
== END 2017-10-28 17:10 | disposition home or self-care (01) | DRG 249 ==
LOC: ER 19:20 → TELE 22:14 → MED 10-26 11:50
PROVIDERS: ADMIT Internal Medicine; ATTEND Internal Medicine
PROC: 5A1D70Z Performance of Urinary Filtration, Intermittent, Less than 6 Hours Per Day (ICD-10-PCS; principal; 2017-10-26)
DX: E86.0 Dehydration (principal); K52.9 Noninfective gastroenteritis and colitis, unspecified; C90.00 Multiple myeloma not having achieved remission; I13.11 Hypertensive heart and chronic kidney disease without heart failure, with stage 5 chronic kidney disease, or end stage renal disease; E87.70 Fluid overload, unspecified; E87.5 Hyperkalemia; N25.81 Secondary hyperparathyroidism of renal origin; N18.6 End stage renal disease; D63.1 Anemia in chronic kidney disease; Z99.2 Dependence on renal dialysis; Z91.15 Patient's noncompliance with renal dialysis; G89.4 Chronic pain syndrome; F17.200 Nicotine dependence, unspecified, uncomplicated; Z87.01 Personal history of pneumonia (recurrent); K21.9 Gastro-esophageal reflux disease without esophagitis; F12.90 Cannabis use, unspecified, uncomplicated; K29.70 Gastritis, unspecified, without bleeding; Z79.899 Other long term (current) drug therapy
CPT/HCPCS: 36415; 71045; 83690; 83735; 84100; 85025; 90937; 93005; A4663; J1200; J2405; J8597

== ENCOUNTER 2017-11-17 08:08 | Inpatient (IN) | payer OTHER ==
[~2017-11-17] VITALS: Ht 170.2 cm; Wt 62.6 kg
[~2017-11-17 08:08] MED LIST changes: -AMLO5TAB2 PO; +AMLO5TAB7 PO
[2017-11-17] MEDS ORDERED: MORPHINE SULFATE 2 MG/1 ML DISP.SYRIN IV ONE (08:30)
[2017-11-17] MEDS ORDERED: MORPHINE SULFATE 4 MG/1 ML DISP.SYRIN ONE (08:41)
[2017-11-17] MEDS ORDERED: hydrALAZINE HCL 20 MG/1 ML VIAL ONE ×2 (08:41→09:47)
[2017-11-17] MEDS ORDERED: hydrALAZINE HCL 20 MG/1 ML VIAL IV ONE ×2 (08:45→09:30)
[2017-11-17 08:57] LABS: BASOPHILS % (AUTO) 0.5 % (0.0-2.0); EOSINOPHILS # (AUTO) 0.2 K/uL (0.0-0.7); EOSINOPHILS % (AUTO) 4.9 % (0.0-7.0); HEMOGLOBIN 8.6 g/dL (12.5-16.3); MEAN CORPUSCULAR HEMOGLOBIN 31.6 uug (23.8-33.4); MEAN CORPUSCULAR HGB CONC 34 g/dL (32.5-36.3); MEAN CORPUSCULAR VOLUME 91.9 fL (73.0-96.2); MONOCYTES # (AUTO) 0.5 K/uL (2.0-10.0); MONOCYTES % (AUTO) 12.2 % (0.0-11.0); NEUTROPHILS # (AUTO) 2.5 K/uL (1.8-8.9); NEUTROPHILS % (AUTO) 59.4 % (38.5-71.5); PLATELET COUNT (AUTO) 249 K/uL (152-348); RED BLOOD CELL COUNT(AUTO) 2.72 MIL/uL (4.06-5.63); WHITE BLOOD COUNT (AUTO) 4.1 K/uL (3.6-10.2)
[2017-11-17 09:06] LABS: BILIRUBIN,DIRECT 0.2 mg/dL (0.0-0.2); BILIRUBIN,TOTAL 1.1 mg/dL (0.2-1.0); POTASSIUM 3.8 mmol/L (3.5-5.1); TOTAL PROTEIN, SERUM 10.1 g/dL (6.4-8.2)
[2017-11-17 09:10] LABS: MAGNESIUM 2.1 mg/dL (1.8-2.4); PHOSPHOROUS 4.4 mg/dL (2.5-4.9)
[2017-11-17 09:12] LABS: CREATININE 8.1 mg/dL (0.6-1.3)
[2017-11-17] MEDS ORDERED: ASPIRIN EC 81 MG TABLET.DR PO SCH (09:30)
--- NOTE | 2017-11-17 09:38 | NUR ---
LEFT A MESSAGE FOR DR. PRESSLEY FOR GI CONSULT
[2017-11-17] MEDS ORDERED: diphenhydrAMINE 50 MG/1 ML VIAL IM ONE (09:45)
[2017-11-17] MEDS ORDERED: ASPIRIN EC 81 MG TABLET.DR PO ONE (09:47)
[2017-11-17] MEDS ORDERED: diphenhydrAMINE 50 MG/1 ML VIAL ONE (09:47)
[2017-11-17] MEDS ORDERED: ONDANSETRON 4 MG/2 ML VIAL ONE (10:49)
--- NOTE | 2017-11-17 11:00 | NUR ---
PT TRANSFERED TO FLOOR IN STABLE CONDITION.
[2017-11-17 11:10] VITALS: BP 181/99
--- NOTE | 2017-11-17 11:10 | NUR ---
NEW PATIENT FROM ER TO ROOM 226 AWAKE ALERT COOPERATE WELL HL IN PLACE RFA AV SHUNT ON LFA ON FALL PRECAUTION BED ALARM ON AND CALL LIGHT IN REACH
[2017-11-17] MEDS ORDERED: ONDANSETRON 4 MG/2 ML VIAL IV PRN (11:15)
--- NOTE | 2017-11-17 11:30 | NUR ---
DOCTOR SHTORCH WAS CALLED FOR ADMISSION ORDER AND MEDICATION. MESSAGE LEFT.
--- NOTE | 2017-11-17 13:20 | NUR ---
DR BOWERS CALL BACK AND NEW ORDER IN CHART KEEP NPO EXCEPT MEDICINE UNTIL SEE BY GI TODAY
[2017-11-17] MEDS: PAROXETINE HCL 10 MG TABLET PO SCH (13:30)
[2017-11-17] MEDS: LABETALOL HCL 200 MG TABLET PO SCH ×2 (13:30→17:00)
[2017-11-17] MEDS: AMLODIPINE 5 MG TABLET PO SCH ×2 (13:30→17:00)
[2017-11-17] MEDS ORDERED: CALCIUM CARBONATE 500 MG TAB.CHEW PO SCH (13:30)
[2017-11-17] MEDS: MORPHINE SULFATE 4 MG/1 ML DISP.SYRIN IV PRN (13:35)
[2017-11-17] MEDS: diphenhydrAMINE 50 MG/1 ML VIAL IV PRN (13:35)
--- NOTE | 2017-11-17 13:35 | NUR ---
DR CABRERA SEE PATIENT IVF CHANGE TO LR AT 50ML/HR ORDER
[2017-11-17] MEDS: METOCLOPRAMIDE HCL 5 MG TABLET PO SCH ×2 (13:36→16:30)
[2017-11-17] MEDS: BENAZEPRIL HCL 20 MG TABLET PO SCH (13:36)
[2017-11-17] MEDS: IV LACTATED RINGERS SOLUTION 1,000 ML IV SCH (13:36)
[2017-11-17 15:00] VITALS: BP 177/65
--- NOTE | 2017-11-17 15:00 | NUR ---
C/O OF NAUSEA REFUSED PO MED AT THIS TIME MED PRN FOR N/V GIVEN ORDER
[2017-11-17] MEDS: ONDANSETRON 4 MG/2 ML VIAL IV PRN (15:07)
[2017-11-17] MEDS: CALCIUM ACETATE 667 MG CAPSULE PO SCH (17:22)
--- NOTE | 2017-11-17 17:30 | NUR ---
REFUSED TO TAKE PO MEDICATION STATE SLIGHTLY NAUSEA DR BOWERS WAS CALL AND MESSAGE LEFT REGARDING BP WAS HIGH 170/100
--- NOTE | 2017-11-17 18:00 | NUR ---
DR HOPES CALL BACK PT CONDITION INFORM NEW ORDER HYDRALAZINE IVP PRN ORDER
[2017-11-17] MEDS: hydrALAZINE HCL 20 MG/1 ML VIAL IV PRN (18:15)
--- NOTE | 2017-11-17 18:15 | NUR ---
HEMODYNAMIC STATUS STABLE ,PAIN AND NAUSEA UNDER CONTROL SAFETY MEASURE PROVIDED CALL LIGHT IN REACH STILL KEEP NPO EXCEPT MEDICATION ORDER AND CONTINUE IVF
[2017-11-17 20:33] VITALS: BP 115/88
--- NOTE | 2017-11-17 21:00 | NUR ---
Nursing Note: Pt resting comfortably in bed. Respirations even and unlabored. Lung sounds clear on auscultation. BP 141/79. No complaints of pain at this time. Bed in low and locked position. IV site intact and patent. Call light in reach. Will continue to monitor.
[2017-11-18 00:34] VITALS: BP 179/96
[2017-11-18] MEDS: MORPHINE SULFATE 4 MG/1 ML DISP.SYRIN IV PRN ×2 (01:26→06:17)
--- NOTE | 2017-11-18 03:57 | NUR ---
Nursing Note: Pt resting in bed. Requested pain medication and medication effective. No complaints of pain at this time. Bed in low and locked position. Call light in reach. Continue to monitor.
[2017-11-18 04:00] VITALS: BP 185/104
[2017-11-18] MEDS: hydrALAZINE HCL 20 MG/1 ML VIAL IV PRN (05:00)
[2017-11-18] MEDS: PANTOPRAZOLE SODIUM 40 MG TABLET.DR PO SCH (06:16)
[2017-11-18] MEDS: METOCLOPRAMIDE HCL 5 MG TABLET PO SCH ×3 (06:17→16:30)
--- NOTE | 2017-11-18 06:18 | NUR ---
Nursing Note: Pt complaining of severe nausea. Reglan administered. No adverse reactions noted.
[2017-11-18 08:00] VITALS: BP 176/102
[2017-11-18] MEDS: CALCIUM ACETATE 667 MG CAPSULE PO SCH ×3 (08:00→17:30)
--- NOTE | 2017-11-18 08:00 | NUR ---
RECEIVED A 47Y/O MALE PT A CASE OF HEADACHE, GENERAL BODY PAIN. A.OX3, BREATHING WITHOUT SUPPORT, CONNECTED TO TELE BOX SHOWING SR. PT HAS A RT FOREARM IV LINE G2O, [id number] IVF RL @ 50ML/HR, URINATING FREELY , PT IS NPO PLANNED FOR CT BRAIN ANGIO, AND HEMODIALYSIS.
[2017-11-18] MEDS: AMLODIPINE 5 MG TABLET PO SCH ×2 (08:26→17:29)
[2017-11-18] MEDS: LABETALOL HCL 200 MG TABLET PO SCH ×3 (08:27→17:29)
[2017-11-18] MEDS: BENAZEPRIL HCL 20 MG TABLET PO SCH (08:27)
[2017-11-18] MEDS: PAROXETINE HCL 10 MG TABLET PO SCH (08:30)
[2017-11-18] MEDS: FOLIC ACID/VITAMIN B COMP W-C TABLET PO SCH (08:30)
[2017-11-18] MEDS: IV LACTATED RINGERS SOLUTION 1,000 ML IV SCH (08:40)
--- NOTE | 2017-11-18 09:00 | NUR ---
PATIENT NOT COMPLIANT WITH MEDICATION REFUSING MOST OF PO MEDICATION, DESPITE EFFORTS OF EXPLAINING AND ADVOCATING
[2017-11-18 11:04] VITALS: BP 157/98
--- NOTE | 2017-11-18 11:30 | NUR ---
Dr. Carty ordered to start a renal diet and if tolerated hydration can be discontinued. Noted and carried out
--- NOTE | 2017-11-18 14:30 | NUR ---
HEMODIALYSIS DONE, 1 LITER PULLED OUT.
[2017-11-18 15:02] VITALS: BP 180/100
[2017-11-18] MEDS: HYDROMORPHONE 2 MG/1 ML DISP.SYRIN IV PRN ×2 (15:03→22:48)
--- NOTE | 2017-11-18 18:40 | NUR ---
seen by dr martinez, ordered to downgrade pt from telemetry to med-surgical. order taken
[2017-11-18 20:38] VITALS: BP 162/96
--- NOTE | 2017-11-18 21:00 | NUR ---
Nursing Note: Pt resting comfortably in bed. Respirations even and unlabored. Lung sounds clear on auscultation. No complaints of pain at this time. Bed in low and locked position. IV site intact and patent infusing Lactated Ringers at 50cc/hr. Call light in reach. Will continue to monitor.
[2017-11-19] MEDS: HYDROMORPHONE 2 MG/1 ML DISP.SYRIN IV PRN ×3 (03:51→16:47)
[2017-11-19] MEDS: IV LACTATED RINGERS SOLUTION 1,000 ML IV SCH (05:52)
[2017-11-19] MEDS: PANTOPRAZOLE SODIUM 40 MG TABLET.DR PO SCH (06:06)
[2017-11-19] MEDS: METOCLOPRAMIDE HCL 5 MG TABLET PO SCH ×3 (06:07→16:30)
--- NOTE | 2017-11-19 07:00 | NUR ---
PATIENT RECEIVED ON BED, ASLEEP NO ACUTE DISTRESS NOTED. IV ACCESS ON RIGHT ARM INTACT AND PATENT IVF INFUSING WELL. NO SOB NOTED. COMPLAINS OF GEN PAIN, HAS DILAUDID 1.5 MG Q4 PRN FOR PAIN MANAGEMENT. COMFORT MEASURES PROVIDED. CALL LIGHT WITHIN REACH WILL CONTINUE TO MONITOR CLOSELY.
[2017-11-19] MEDS: CALCIUM ACETATE 667 MG CAPSULE PO SCH ×3 (08:00→17:19)
[2017-11-19 08:53] LABS: BASOPHILS % (AUTO) 0.4 % (0.0-2.0); EOSINOPHILS # (AUTO) 0.3 K/uL (0.0-0.7); EOSINOPHILS % (AUTO) 7.7 % (0.0-7.0); HEMATOCRIT 26.1 % (36.7-47.1); HEMOGLOBIN 8.8 g/dL (12.5-16.3); LYMPHOCYTES # (AUTO) 0.9 K/uL (20.0-40.0); LYMPHOCYTES % (AUTO) 22.3 % (20.5-51.5); MEAN CORPUSCULAR HEMOGLOBIN 31.6 uug (23.8-33.4); MEAN CORPUSCULAR HGB CONC 34 g/dL (32.5-36.3); MEAN CORPUSCULAR VOLUME 93.5 fL (73.0-96.2); MONOCYTES # (AUTO) 0.4 K/uL (2.0-10.0); MONOCYTES % (AUTO) 10.3 % (0.0-11.0); NEUTROPHILS # (AUTO) 2.4 K/uL (1.8-8.9); NEUTROPHILS % (AUTO) 59.3 % (38.5-71.5); PLATELET COUNT (AUTO) 210 K/uL (152-348)
[2017-11-19] MEDS ORDERED: METOCLOPRAMIDE HCL 5 MG TABLET PO SCH (09:00)
[2017-11-19] MEDS: FOLIC ACID/VITAMIN B COMP W-C TABLET PO SCH (09:00)
[2017-11-19 09:01] LABS: MAGNESIUM 2.4 mg/dL (1.8-2.4); PHOSPHOROUS 7.9 mg/dL (2.5-4.9); POTASSIUM 4.1 mmol/L (3.5-5.1)
[2017-11-19 09:12] LABS: CREATININE 11.4 mg/dL (0.6-1.3)
[2017-11-19] MEDS: AMLODIPINE 5 MG TABLET PO SCH ×2 (09:55→16:56)
[2017-11-19] MEDS: PAROXETINE HCL 10 MG TABLET PO SCH (09:55)
[2017-11-19] MEDS: LABETALOL HCL 200 MG TABLET PO SCH ×3 (09:56→16:56)
[2017-11-19] MEDS: BENAZEPRIL HCL 20 MG TABLET PO SCH (09:56)
--- NOTE | 2017-11-19 10:00 | NUR ---
SEEN AND EXAMINED BY DR. EMELY BOWERS. ORDERS NOTED AND CARRIED OUT.
[2017-11-19 12:00] VITALS: BP 159/91
[2017-11-19 15:41] VITALS: BP 163/99
--- NOTE | 2017-11-19 18:39 | NUR ---
PATIENT IN BED ASLEEP. APPEARS COMFORTABLE. IN STABLE CONDITION. IV ACCESS ON RIGHT FOREARM #2O INTACT AND PATENT, IVF INFUSING WELL. C/O GEN PAIN, PAIN CONTROLLED W/ DILAUDID 1.5 MG Q4PRN. POOR APPETITE NOTED, PER PATIENT NO URINE OUTPUT AND BM THIS SHIFT. NEEDS ATTENDED AND ANTICIPATED. CALL LIGHT WITHIN REACH.
[2017-11-19 19:00] VITALS: BP 173/95
--- NOTE | 2017-11-19 20:00 | NUR ---
PATIENT AWAKE IN BED. A/O X4. BP ELEVATED. 173/95. ALL OTHER VSS. PATIENT REFUSED FOR ANY BP MEDS AT THIS TIME. EDUCATED AND INFORMED PATIENT OF IMPORTANCE OF MEDS, BUT PATIENT REFUSED. ASYMPTOMATIC. PATIENT DENIES ANY PAIN OR DISCOMFORT. IVF INFUSING WELL TO RIGHT FA. CALL LIGHT IN REACH. ALL NEEDS ATTENDED, WILL CONTINUE TO MONITOR AND ASSESS.
[2017-11-20] MEDS: HYDROMORPHONE 2 MG/1 ML DISP.SYRIN IV PRN ×2 (00:23→05:11)
[2017-11-20] MEDS: diphenhydrAMINE 50 MG/1 ML VIAL IV PRN ×3 (00:24→16:50)
[2017-11-20] MEDS: IV LACTATED RINGERS SOLUTION 1,000 ML IV SCH ×2 (00:37→20:42)
[2017-11-20] MEDS: ONDANSETRON 4 MG/2 ML VIAL IV PRN (00:37)
[2017-11-20 04:00] VITALS: BP 175/97
[2017-11-20] MEDS: hydrALAZINE HCL 20 MG/1 ML VIAL IV PRN (04:09)
--- NOTE | 2017-11-20 04:10 | NUR ---
PATIENTS BLOOD PRESSURE ELEVATED. 173/95. PATIENT GIVEN HYDRALAZINE 10MG IVP PER RN. WILL CONTINUE TO MONITOR.
[2017-11-20 05:00] VITALS: BP 165/90
--- NOTE | 2017-11-20 05:10 | NUR ---
RECHECKED PATIENTS BLOOD PRESSURE, SLOWLY TRENDING DOWN. 165/90. ALL OTHER VSS. CALL LIGHT IN REACH. WILL CONTINUE TO MONITOR AND ASSESS.
--- NOTE | 2017-11-20 05:11 | NUR ---
PATIENT C/O PAIN. PATIENT GIVEN DILAUDID 1.5MG IV PER RN. WILL CONTINUE TO MONITOR.
--- NOTE | 2017-11-20 05:52 | NUR ---
PATIENT ASLEEP. NO RESP. DISTRESS NOTED. IVF INFUSING WELL. CALL LIGHT IN REACH. WILL CONTINUE TO MONITOR AND ASSESS
[2017-11-20] MEDS: PANTOPRAZOLE SODIUM 40 MG TABLET.DR PO SCH (06:25)
[2017-11-20] MEDS: BENAZEPRIL HCL 20 MG TABLET PO SCH (08:26)
[2017-11-20] MEDS: LABETALOL HCL 200 MG TABLET PO SCH ×3 (08:27→16:58)
[2017-11-20] MEDS: FOLIC ACID/VITAMIN B COMP W-C TABLET PO SCH (08:27)
[2017-11-20] MEDS: AMLODIPINE 5 MG TABLET PO SCH ×2 (08:28→16:48)
[2017-11-20] MEDS: METOCLOPRAMIDE HCL 5 MG TABLET PO SCH ×3 (08:28→16:47)
[2017-11-20] MEDS: PAROXETINE HCL 10 MG TABLET PO SCH (08:28)
[2017-11-20] MEDS: HYDROCODONE/APAP 5-325MG TABLET PO PRN ×2 (09:24→16:49)
[2017-11-20 11:23] VITALS: BP 150/88
[2017-11-20] MEDS: CALCIUM ACETATE 667 MG CAPSULE PO SCH ×2 (12:00→18:00)
[2017-11-20 15:26] VITALS: BP 152/94
--- NOTE | 2017-11-20 17:49 | NUR ---
SBAR report received this morning, Pt assessed, no acute distress evident. Pt compliant with most routine medication administration, refusing some BP medications and choosing to only take specific ones. Pt teaching provided. Pt received dialysis 1,500 ml removed. IV site patent, flushed, and no s/s of infiltration. All comfort and safety needs met. Call light within reach. No BM today for sample collection. Will continue to monitor and endorse to on coming hourly shift.
--- NOTE | 2017-11-20 19:30 | NUR ---
Received patient in stable condition from day shift nurse. No acute distress noted. Pertinent assessment completed. Patient is A/Ox4 & able to make his needs known. Noted with a right forearm 20G IV running with LR. No s/s of infiltration or swelling noted at IV site. Patient has a left forearm AV shunt used for dialysis. Per day shift nurse, patient had dialysis today with 1500cc removed. SBP elevated at start of shift at 170/93 & HR of 81. Patient is asymptomatic & refusing PRN BP meds at this time. Explained risks & benefits, patient continues to refuse. Will monitor & reassess BP. Patient denies pain & SOB. Call light within reach. Will continue to monitor through shift.
[2017-11-20 19:38] VITALS: BP 170/93
--- NOTE | 2017-11-20 23:58 | NUR ---
BM collected and sent to Lab for Stool OB. Will continue to monitor.
[2017-11-21] MEDS: diphenhydrAMINE 50 MG/1 ML VIAL IV PRN ×2 (00:21→09:28)
[2017-11-21] MEDS: HYDROCODONE/APAP 5-325MG TABLET PO PRN ×2 (00:22→09:18)
[2017-11-21 03:51] VITALS: BP 164/100
[2017-11-21] MEDS: PANTOPRAZOLE SODIUM 40 MG TABLET.DR PO SCH (06:17)
--- NOTE | 2017-11-21 06:30 | NUR ---
Patient stable through shift. No acute distress noted. All needs attended to. Pain management provided. All medications administered per MD order. Safety measures implemented. Call light within reach. Will endorse accordingly.
[2017-11-21] MEDS: METOCLOPRAMIDE HCL 5 MG TABLET PO SCH ×3 (07:30→15:56)
[2017-11-21] MEDS: ONDANSETRON 4 MG/2 ML VIAL IV PRN ×2 (09:10→17:30)
[2017-11-21] MEDS: AMLODIPINE 5 MG TABLET PO SCH ×2 (09:16→17:18)
[2017-11-21] MEDS: BENAZEPRIL HCL 20 MG TABLET PO SCH (09:17)
[2017-11-21] MEDS: LABETALOL HCL 200 MG TABLET PO SCH ×3 (09:17→17:18)
[2017-11-21] MEDS: FOLIC ACID/VITAMIN B COMP W-C TABLET PO SCH (09:20)
[2017-11-21] MEDS: CALCIUM ACETATE 667 MG CAPSULE PO SCH ×3 (09:20→17:17)
[2017-11-21] MEDS: PAROXETINE HCL 10 MG TABLET PO SCH (09:20)
[2017-11-21 11:14] VITALS: BP 166/92
[2017-11-21 15:05] VITALS: BP 163/94
[2017-11-21] MEDS: hydrALAZINE HCL 20 MG/1 ML VIAL IV PRN (15:52)
[2017-11-21] MEDS: IV LACTATED RINGERS SOLUTION 1,000 ML IV SCH (17:15)
[2017-11-21 17:18] VITALS: BP 165/96
--- NOTE | 2017-11-21 17:19 | NUR ---
NON ADMIN IVF, PT DISCHARGED TO SELFCARE/HOME.
--- NOTE | 2017-11-21 17:31 | NUR ---
PATIENT DISCHARGED TO SELF CARE/HOME PER MD'S ORDER. PT IS ALERT, IN NO DISTRESS, NO C/O OF CHEST PAIN, SOB. PT IS NON COMPLIANT WITH MEDICATIONS. VS BP 165/94 HR 65, PRN FOR BP GIVEN, WILL REASSESS, MD AWARE.
--- NOTE | 2017-11-21 18:15 | NUR ---
PT DC TO SELF CARE/HOME. PATIENT CONDITION STABLE. DC INSTRUCTIONS GIVEN AND WENT OVER WITH PATIENT. BELONGINGS LIST WENT OVER WITH PATIENT. IV DISCONTINUED. VITAL SIGNS PRIOR TO DC B/P 147/92, HR 78, T 97.8, 96% ON RA.
== END 2017-11-21 18:40 | disposition home or self-care (01) | DRG 254 ==
LOC: ER 08:08 → TELE 10:35 → MED 11-18 18:42
PROVIDERS: ADMIT Internal Medicine; ATTEND Internal Medicine
PROC: 5A1D70Z Performance of Urinary Filtration, Intermittent, Less than 6 Hours Per Day (ICD-10-PCS; principal; 2017-11-17)
DX: K59.00 Constipation, unspecified (principal); I21.A1 Myocardial infarction type 2; C90.00 Multiple myeloma not having achieved remission; K31.84 Gastroparesis; E83.9 Disorder of mineral metabolism, unspecified; E87.5 Hyperkalemia; I13.11 Hypertensive heart and chronic kidney disease without heart failure, with stage 5 chronic kidney disease, or end stage renal disease; I16.0 Hypertensive urgency; N18.6 End stage renal disease; N25.0 Renal osteodystrophy; G89.4 Chronic pain syndrome; K52.9 Noninfective gastroenteritis and colitis, unspecified; Z99.2 Dependence on renal dialysis; Z91.19 Patient's noncompliance with other medical treatment and regimen; Z91.15 Patient's noncompliance with renal dialysis; N40.0 Benign prostatic hyperplasia without lower urinary tract symptoms; F17.210 Nicotine dependence, cigarettes, uncomplicated; D63.8 Anemia in other chronic diseases classified elsewhere; D63.1 Anemia in chronic kidney disease; I67.2 Cerebral atherosclerosis; N20.0 Calculus of kidney; K21.9 Gastro-esophageal reflux disease without esophagitis
CPT/HCPCS: 36415; 70030-TC; 70450; 71045; 83690; 83735; 84100; 85025; 86625; 87046; 90937; 93005; A4663; J0360; J1170; J1200; J2270; J2405; J7120; J8597

== ENCOUNTER 2017-11-26 19:56 | Inpatient (IN) | payer OTHER ==
[~2017-11-26] VITALS: Ht 170.2 cm; Wt 66.2 kg
[2017-11-26] MEDS ORDERED: LABETALOL HCL 100 MG/20 ML VIAL IV ONE (20:30)
[2017-11-26] MEDS ORDERED: METOCLOPRAMIDE HCL 10 MG/2 ML VIAL IV ONE (20:30)
[2017-11-26] MEDS ORDERED: MORPHINE SULFATE 2 MG/1 ML DISP.SYRIN IV ONE (20:30)
[2017-11-26] MEDS ORDERED: MORPHINE SULFATE 4 MG/1 ML DISP.SYRIN ONE (20:48)
[2017-11-26] MEDS ORDERED: METOCLOPRAMIDE HCL 10 MG/2 ML VIAL ONE (20:48)
[2017-11-26] MEDS ORDERED: LABETALOL HCL 100 MG/20 ML VIAL ONE (20:49)
[2017-11-26 21:01] LABS: BASOPHILS % (AUTO) 0.4 % (0.0-2.0); EOSINOPHILS # (AUTO) 0.2 K/uL (0.0-0.7); EOSINOPHILS % (AUTO) 5.4 % (0.0-7.0); HEMOGLOBIN 7.8 g/dL (12.5-16.3); LYMPHOCYTES # (AUTO) 1.3 K/uL (20.0-40.0); LYMPHOCYTES % (AUTO) 29.8 % (20.5-51.5); MEAN CORPUSCULAR HEMOGLOBIN 31.4 uug (23.8-33.4); MEAN CORPUSCULAR HGB CONC 34 g/dL (32.5-36.3); MEAN CORPUSCULAR VOLUME 92.7 fL (73.0-96.2); MONOCYTES # (AUTO) 0.5 K/uL (2.0-10.0); MONOCYTES % (AUTO) 10.6 % (0.0-11.0); NEUTROPHILS # (AUTO) 2.3 K/uL (1.8-8.9); NEUTROPHILS % (AUTO) 53.8 % (38.5-71.5); PLATELET COUNT (AUTO) 165 K/uL (152-348); WHITE BLOOD COUNT (AUTO) 4.3 K/uL (3.6-10.2)
[2017-11-26 21:02] LABS: RED BLOOD CELL COUNT(AUTO) 2.48 MIL/uL (4.06-5.63)
[2017-11-26 21:04] LABS: POTASSIUM 5.2 mmol/L (3.5-5.1)
[2017-11-26 21:07] LABS: CREATININE 15.6 mg/dL (0.6-1.3)
[2017-11-26 21:11] LABS: BILIRUBIN,DIRECT 0.1 mg/dL (0.0-0.2); BILIRUBIN,TOTAL 0.7 mg/dL (0.2-1.0); TOTAL PROTEIN, SERUM 8.9 g/dL (6.4-8.2)
[2017-11-26] MEDS ORDERED: NITROGLYCERIN 0.4 MG/TAB BOTTLE SL ONE ×2 (21:15→21:19)
[2017-11-26 21:16] LABS: MAGNESIUM 2.4 mg/dL (1.8-2.4); PHOSPHOROUS 6.9 mg/dL (2.5-4.9)
[2017-11-26] MEDS ORDERED: CLONIDINE HCL 0.1 MG TABLET PO PRN (23:30)
[2017-11-27] VITALS: BP 204/82
[2017-11-27 03:49] VITALS: BP 219/131
[2017-11-27] MEDS ORDERED: LORAZEPAM 2 MG/1 ML VIAL IV ONE (04:00)
[2017-11-27] MEDS ORDERED: CALCIUM CARBONATE 500 MG TAB.CHEW PO PRN (07:45)
[2017-11-27 10:15] LABS: BASOPHILS % (AUTO) 0.3 % (0.0-2.0); EOSINOPHILS # (AUTO) 0.2 K/uL (0.0-0.7); EOSINOPHILS % (AUTO) 5.7 % (0.0-7.0); HEMATOCRIT 21.9 % (36.7-47.1); HEMOGLOBIN 7.5 g/dL (12.5-16.3); LYMPHOCYTES # (AUTO) 1.2 K/uL (20.0-40.0); LYMPHOCYTES % (AUTO) 31.6 % (20.5-51.5); MEAN CORPUSCULAR HEMOGLOBIN 31.4 uug (23.8-33.4); MEAN CORPUSCULAR HGB CONC 34 g/dL (32.5-36.3); MEAN CORPUSCULAR VOLUME 92.4 fL (73.0-96.2); MONOCYTES # (AUTO) 0.4 K/uL (2.0-10.0); MONOCYTES % (AUTO) 11.3 % (0.0-11.0); NEUTROPHILS % (AUTO) 51.1 % (38.5-71.5); PLATELET COUNT (AUTO) 164 K/uL (152-348)
[2017-11-27 10:16] LABS: MAGNESIUM 2.4 mg/dL (1.8-2.4); POTASSIUM 5.7 mmol/L (3.5-5.1)
[2017-11-27 10:17] LABS: CREATININE 16.3 mg/dL (0.6-1.3)
[2017-11-27 10:23] LABS: RED BLOOD CELL COUNT(AUTO) 2.37 MIL/uL (4.06-5.63)
[2017-11-27 11:52] VITALS: BP 188/21
[2017-11-27] MEDS: CALCIUM ACETATE 667 MG CAPSULE PO SCH ×3 (12:00→17:23)
[2017-11-27] MEDS: BENAZEPRIL HCL 20 MG TABLET PO SCH (12:50)
[2017-11-27] MEDS: FOLIC ACID/VITAMIN B COMP W-C TABLET PO SCH (12:50)
[2017-11-27] MEDS: AMLODIPINE 5 MG TABLET PO SCH ×2 (12:50→20:32)
[2017-11-27] MEDS: PANTOPRAZOLE SODIUM 40 MG TABLET.DR PO SCH (12:50)
[2017-11-27] MEDS: METOCLOPRAMIDE HCL 10 MG TABLET PO SCH ×2 (12:50→17:23)
[2017-11-27] MEDS: LABETALOL HCL 200 MG TABLET PO SCH ×3 (12:50→21:13)
[2017-11-27] MEDS: PAROXETINE HCL 10 MG TABLET PO SCH (12:50)
[2017-11-27] MEDS ORDERED: diphenhydrAMINE 50 MG/1 ML VIAL IV PRN (13:30)
[2017-11-27] MEDS ORDERED: MORPHINE SULFATE 2 MG/1 ML DISP.SYRIN IM PRN (13:30)
[2017-11-27] MEDS ORDERED: EPOETIN ALFA 10,000 UNITS/ML VIAL SQ ONE (13:30)
[2017-11-27] MEDS ORDERED: ONDANSETRON 4 MG/2 ML VIAL IV PRN (13:30)
[2017-11-27] MEDS: ONDANSETRON 4 MG/2 ML VIAL IV PRN (13:50)
[2017-11-27] MEDS: MORPHINE SULFATE 4 MG/1 ML DISP.SYRIN IM PRN ×3 (13:50→21:33)
[2017-11-27 16:01] VITALS: BP 173/116
[2017-11-27 20:18] VITALS: BP 182/120
[2017-11-28 00:06] VITALS: BP 180/82
[2017-11-28 05:00] VITALS: BP 175/106
[2017-11-28] MEDS: LABETALOL HCL 200 MG TABLET PO SCH ×3 (06:18→22:01)
[2017-11-28] MEDS: PANTOPRAZOLE SODIUM 40 MG TABLET.DR PO SCH (06:18)
[2017-11-28] MEDS: METOCLOPRAMIDE HCL 10 MG TABLET PO SCH ×3 (07:30→20:18)
[2017-11-28] MEDS: MORPHINE SULFATE 4 MG/1 ML DISP.SYRIN IM PRN (07:45)
[2017-11-28] MEDS: CALCIUM ACETATE 667 MG CAPSULE PO SCH ×3 (07:56→20:19)
[2017-11-28] MEDS: FOLIC ACID/VITAMIN B COMP W-C TABLET PO SCH (09:00)
[2017-11-28] MEDS: AMLODIPINE 5 MG TABLET PO SCH ×2 (09:00→20:19)
[2017-11-28] MEDS: BENAZEPRIL HCL 20 MG TABLET PO SCH (09:00)
[2017-11-28] MEDS: PAROXETINE HCL 10 MG TABLET PO SCH (09:00)
[2017-11-28 11:08] VITALS: BP 176/107
[2017-11-28] MEDS: HYDROMORPHONE 1 MG/1 ML DISP.SYRIN IV PRN ×3 (11:29→23:02)
[2017-11-28] MEDS: ONDANSETRON 4 MG/2 ML VIAL IV PRN ×2 (12:41→20:23)
[2017-11-28 15:09] VITALS: BP 174/101
[2017-11-28 17:41] LABS: BASOPHILS % (AUTO) 0.3 % (0.0-2.0); EOSINOPHILS # (AUTO) 0.3 K/uL (0.0-0.7); EOSINOPHILS % (AUTO) 6.9 % (0.0-7.0); HEMATOCRIT 22.9 % (36.7-47.1); HEMOGLOBIN 7.8 g/dL (12.5-16.3); LYMPHOCYTES # (AUTO) 1.1 K/uL (20.0-40.0); LYMPHOCYTES % (AUTO) 25.2 % (20.5-51.5); MEAN CORPUSCULAR HEMOGLOBIN 31.5 uug (23.8-33.4); MEAN CORPUSCULAR HGB CONC 34 g/dL (32.5-36.3); MEAN CORPUSCULAR VOLUME 92.5 fL (73.0-96.2); MONOCYTES # (AUTO) 0.4 K/uL (2.0-10.0); MONOCYTES % (AUTO) 9.3 % (0.0-11.0); NEUTROPHILS # (AUTO) 2.6 K/uL (1.8-8.9); NEUTROPHILS % (AUTO) 58.3 % (38.5-71.5); PLATELET COUNT (AUTO) 200 K/uL (152-348); WHITE BLOOD COUNT (AUTO) 4.5 K/uL (3.6-10.2)
[2017-11-28 17:42] LABS: RED BLOOD CELL COUNT(AUTO) 2.47 MIL/uL (4.06-5.63)
[2017-11-28 17:43] LABS: POTASSIUM 5.4 mmol/L (3.5-5.1)
[2017-11-28 17:45] LABS: CREATININE 13.8 mg/dL (0.6-1.3)
[2017-11-28 20:40] VITALS: BP 196/117
[2017-11-29 05:38] VITALS: BP 181/112
[2017-11-29] MEDS: PANTOPRAZOLE SODIUM 40 MG TABLET.DR PO SCH (06:51)
[2017-11-29] MEDS: METOCLOPRAMIDE HCL 10 MG TABLET PO SCH ×3 (06:51→17:12)
[2017-11-29] MEDS: LABETALOL HCL 200 MG TABLET PO SCH ×3 (06:52→21:08)
[2017-11-29] MEDS: CALCIUM ACETATE 667 MG CAPSULE PO SCH ×3 (08:00→17:12)
[2017-11-29] MEDS: ONDANSETRON 4 MG/2 ML VIAL IV PRN ×3 (08:51→22:01)
[2017-11-29] MEDS: HYDROMORPHONE 1 MG/1 ML DISP.SYRIN IV PRN ×4 (08:51→21:49)
[2017-11-29] MEDS: FOLIC ACID/VITAMIN B COMP W-C TABLET PO SCH (09:00)
[2017-11-29] MEDS: AMLODIPINE 5 MG TABLET PO SCH ×2 (09:00→17:13)
[2017-11-29] MEDS: BENAZEPRIL HCL 20 MG TABLET PO SCH (09:00)
[2017-11-29] MEDS: PAROXETINE HCL 10 MG TABLET PO SCH (09:00)
[2017-11-29 11:12] VITALS: BP 176/105
[2017-11-29 11:53] LABS: BASOPHILS % (AUTO) 0.4 % (0.0-2.0); EOSINOPHILS # (AUTO) 0.4 K/uL (0.0-0.7); EOSINOPHILS % (AUTO) 9.4 % (0.0-7.0); HEMATOCRIT 23.3 % (36.7-47.1); HEMOGLOBIN 7.9 g/dL (12.5-16.3); LYMPHOCYTES # (AUTO) 1.2 K/uL (20.0-40.0); LYMPHOCYTES % (AUTO) 32.3 % (20.5-51.5); MEAN CORPUSCULAR HEMOGLOBIN 31.4 uug (23.8-33.4); MEAN CORPUSCULAR HGB CONC 34 g/dL (32.5-36.3); MEAN CORPUSCULAR VOLUME 92.1 fL (73.0-96.2); MONOCYTES # (AUTO) 0.5 K/uL (2.0-10.0); MONOCYTES % (AUTO) 13.1 % (0.0-11.0); NEUTROPHILS # (AUTO) 1.7 K/uL (1.8-8.9); NEUTROPHILS % (AUTO) 44.8 % (38.5-71.5); PLATELET COUNT (AUTO) 206 K/uL (152-348); RED BLOOD CELL COUNT(AUTO) 2.53 MIL/uL (4.06-5.63); WHITE BLOOD COUNT (AUTO) 3.8 K/uL (3.6-10.2)
[2017-11-29 12:02] LABS: BILIRUBIN,TOTAL 0.7 mg/dL (0.2-1.0); MAGNESIUM 2.4 mg/dL (1.8-2.4); PHOSPHOROUS 4.9 mg/dL (2.5-4.9); POTASSIUM 4.8 mmol/L (3.5-5.1); TOTAL PROTEIN, SERUM 8.3 g/dL (6.4-8.2)
[2017-11-29 12:07] LABS: CREATININE 10.5 mg/dL (0.6-1.3)
[2017-11-29 15:14] VITALS: BP 179/113
[2017-11-29 21:06] VITALS: BP 188/116
[2017-11-30 00:48] VITALS: BP 173/105
[2017-11-30 05:19] VITALS: BP 191/112
[2017-11-30] MEDS: PANTOPRAZOLE SODIUM 40 MG TABLET.DR PO SCH (06:35)
[2017-11-30] MEDS: METOCLOPRAMIDE HCL 10 MG TABLET PO SCH ×2 (06:35→11:30)
[2017-11-30] MEDS: LABETALOL HCL 200 MG TABLET PO SCH (06:36)
[2017-11-30] MEDS: HYDROMORPHONE 1 MG/1 ML DISP.SYRIN IV PRN ×2 (06:36→12:52)
[2017-11-30] MEDS: PAROXETINE HCL 10 MG TABLET PO SCH (08:53)
[2017-11-30] MEDS: CALCIUM ACETATE 667 MG CAPSULE PO SCH ×2 (08:53→11:52)
[2017-11-30] MEDS: FOLIC ACID/VITAMIN B COMP W-C TABLET PO SCH (08:53)
[2017-11-30] MEDS: AMLODIPINE 5 MG TABLET PO SCH (08:55)
[2017-11-30] MEDS: BENAZEPRIL HCL 20 MG TABLET PO SCH (08:55)
[2017-11-30 11:04] VITALS: BP 167/105
[2017-11-30 11:49] VITALS: BP 160/95
[2017-11-30 15:14] VITALS: BP 163/97
== END 2017-11-30 15:47 | disposition home or self-care (01) | DRG 199 ==
LOC: ER 19:58 → TELE 22:57 → MED 11-30 11:30
PROVIDERS: ADMIT Internal Medicine Nephrology; ATTEND Internal Medicine
PROC: 5A1D70Z Performance of Urinary Filtration, Intermittent, Less than 6 Hours Per Day (ICD-10-PCS; principal; 2017-11-27)
DX: I16.0 Hypertensive urgency (principal); I50.33 Acute on chronic diastolic (congestive) heart failure; I13.2 Hypertensive heart and chronic kidney disease with heart failure and with stage 5 chronic kidney disease, or end stage renal disease; N18.6 End stage renal disease; Z99.2 Dependence on renal dialysis; Z91.15 Patient's noncompliance with renal dialysis; Z59.0 Homelessness; G89.4 Chronic pain syndrome; K21.9 Gastro-esophageal reflux disease without esophagitis; Z76.5 Malingerer [conscious simulation]; F17.200 Nicotine dependence, unspecified, uncomplicated; D63.1 Anemia in chronic kidney disease; Z87.01 Personal history of pneumonia (recurrent); M54.9 Dorsalgia, unspecified
CPT/HCPCS: 36415; 71045; 83690; 83735; 84100; 85025; 85730; 93005; A4663; J0885; J1170; J1200; J2060; J2270; J2405; J2765; J3490; J8597

== ENCOUNTER 2017-12-12 07:36 | Emergency (ER) | payer OTHER ==
[~2017-12-12] VITALS: Ht 170.2 cm; Wt 63.5 kg
--- NOTE | 2017-12-12 07:55 | NUR ---
PT IS IN ROOM #2B. DR KLINE EVALUATED THE PT.
[2017-12-12 08:12] LABS: BASOPHILS % (AUTO) 0.7 % (0.0-2.0); EOSINOPHILS # (AUTO) 0.3 K/uL (0.0-0.7); EOSINOPHILS % (AUTO) 7.3 % (0.0-7.0); HEMATOCRIT 28.9 % (36.7-47.1); HEMOGLOBIN 9.8 g/dL (12.5-16.3); LYMPHOCYTES % (AUTO) 22.3 % (20.5-51.5); MEAN CORPUSCULAR HGB CONC 34 g/dL (32.5-36.3); MEAN CORPUSCULAR VOLUME 91.2 fL (73.0-96.2); MONOCYTES # (AUTO) 0.5 K/uL (2.0-10.0); MONOCYTES % (AUTO) 11.5 % (0.0-11.0); NEUTROPHILS # (AUTO) 2.7 K/uL (1.8-8.9); NEUTROPHILS % (AUTO) 58.2 % (38.5-71.5); PLATELET COUNT (AUTO) 254 K/uL (152-348); RED BLOOD CELL COUNT(AUTO) 3.16 MIL/uL (4.06-5.63); WHITE BLOOD COUNT (AUTO) 4.7 K/uL (3.6-10.2)
[2017-12-12 08:19] LABS: POTASSIUM 3.7 mmol/L (3.5-5.1)
[2017-12-12] MEDS ORDERED: ACETAMINOPHEN 325 MG TABLET ONE (08:22)
[2017-12-12 08:24] LABS: BILIRUBIN,DIRECT 0.2 mg/dL (0.0-0.2); BILIRUBIN,TOTAL 1.1 mg/dL (0.2-1.0); TOTAL PROTEIN, SERUM 10.4 g/dL (6.4-8.2)
[2017-12-12] MEDS ORDERED: LABETALOL HCL 100 MG/20 ML VIAL IV ONE (08:30)
[2017-12-12] MEDS ORDERED: ACETAMINOPHEN 325 MG TABLET PO ONE (08:30)
[2017-12-12] MEDS ORDERED: LABETALOL HCL 100 MG/20 ML VIAL ONE (08:44)
--- NOTE | 2017-12-12 10:12 | NUR ---
PT WAS D/C TO HOME. D/C INSTRUCTIONS GIVEN TO THE PT.
[2017-12-12 10:13] VITALS: BP 151/79
== END 2017-12-12 10:15 | disposition home or self-care (01) ==
LOC: ER 07:36
DX: R51 Headache (principal); R10.9 Unspecified abdominal pain; I12.9 Hypertensive chronic kidney disease with stage 1 through stage 4 chronic kidney disease, or unspecified chronic kidney disease; N18.9 Chronic kidney disease, unspecified; K21.9 Gastro-esophageal reflux disease without esophagitis; F17.200 Nicotine dependence, unspecified, uncomplicated; F12.10 Cannabis abuse, uncomplicated
CPT/HCPCS: 36415; 71045; 83690; 85025; 93005; A4663; J3490

== ENCOUNTER 2017-12-21 14:30 | Inpatient (IN) | payer OTHER ==
[~2017-12-21] VITALS: Ht 170.2 cm; Wt 62.6 kg
[2017-12-21] MEDS ORDERED: LABETALOL HCL 100 MG/20 ML VIAL IV ONE (15:00)
[2017-12-21] MEDS ORDERED: CLONIDINE HCL 0.1 MG TABLET PO ONE (15:00)
[2017-12-21] MEDS ORDERED: CLONIDINE HCL 0.1 MG TABLET ONE (15:09)
[2017-12-21] MEDS ORDERED: LABETALOL HCL 100 MG/20 ML VIAL ONE (15:10)
--- NOTE | 2017-12-21 15:25 | NUR ---
PT IS IN ROOM #1B. DR MCCABE EVALUATED THE PT.
[2017-12-21] MEDS ORDERED: hydrALAZINE HCL 20 MG/1 ML VIAL IM ONE (15:30)
[2017-12-21 15:50] LABS: BILIRUBIN,DIRECT 0.2 mg/dL (0.0-0.2); BILIRUBIN,TOTAL 0.8 mg/dL (0.2-1.0); TOTAL PROTEIN, SERUM 9.1 g/dL (6.4-8.2)
[2017-12-21 15:57] LABS: POTASSIUM 7.2 mmol/L (3.5-5.1)
[2017-12-21] MEDS ORDERED: SODIUM BICARBONATE 8.4% 50 MEQ/50 ML DISP.SYRIN IV ONE ×2 (16:15→16:27)
[2017-12-21] MEDS ORDERED: DEXTROSE 50% 50 ML DISP.SYRIN IV ONE (16:15)
[2017-12-21] MEDS ORDERED: INSULIN REGULAR, HUMAN 1,000 UNITS/10 ML VIAL IV ONE (16:15)
[2017-12-21] MEDS ORDERED: CALCIUM CHLORIDE 1 GM/10 ML DISP.SYRIN IVP ONE ×2 (16:15→16:28)
[2017-12-21] MEDS ORDERED: DEXTROSE 50% 50 ML DISP.SYRIN ONE (16:28)
[2017-12-21] MEDS ORDERED: INSULIN REGULAR, HUMAN 300 UNIT/3 ML VIAL ONE (16:29)
[2017-12-21] MEDS ORDERED: HYDROCODONE/APAP 5-325MG TABLET ONE (16:29)
[2017-12-21] MEDS ORDERED: HYDROCODONE/APAP 5-325MG TABLET PO ONE (16:30)
--- NOTE | 2017-12-21 16:47 | NUR ---
REPORT GIVEN TO HOT DOG VENDOR. PT WAS TRANSFERED TO ROOM #225.
--- NOTE | 2017-12-21 17:00 | NUR ---
RECEIVED PATIENT FOR ADMISSION 47 YEARS OLD FROM ED WITH ELEVATED POTASSIUM AND CREATINE BY ALBERT PLACED INTO BED FIXED AND MADE COMFORTABLE PAGED DR ALVARES AWAITING FOR ORDERS
[2017-12-21 17:23] VITALS: BP 155/86
--- NOTE | 2017-12-21 17:57 | NUR ---
DR BOWERS RETURNED CALL WITH NEW ORDERS AND NOTED
[2017-12-21] MEDS: CALCIUM ACETATE 667 MG CAPSULE PO SCH (18:00)
[2017-12-21] MEDS: METOCLOPRAMIDE HCL 10 MG TABLET PO SCH (18:00)
[2017-12-21] MEDS ORDERED: diphenhydrAMINE 50 MG/1 ML VIAL IV PRN (18:00)
[2017-12-21] MEDS: AMLODIPINE 5 MG TABLET PO SCH (18:00)
[2017-12-21] MEDS ORDERED: CALCIUM CARBONATE 500 MG TAB.CHEW PO PRN (18:00)
--- NOTE | 2017-12-21 20:14 | NUR ---
RECEIVED PATIENT IN BED, WHEN SPOKE TO PATIENT AND INTRODUCE MYSELF, PATIENT EYES OPEN, AND WENT BACK TO SLEEP, NOTIFY PATIENT PATIENT THAT DIALYSIS NURSE ON THE WAY TO HAVE DIALYSIS DONE. PATIENT ALERT ORIENTED, ABLE TO VERBALIZE NEEDS, ASKED PATIENT IF ANY HEADACHES OR DIZZINESS, PATIENT DID NOT ANSWER, NO S/S OF DISCOMFORT, CONT ON TELE MONITORING, RHYTHM NORMAL SINUS RHYTHM 72, WILL CONTINUE TO MONITOR.
[2017-12-21 20:16] VITALS: BP 182/109
--- NOTE | 2017-12-21 21:44 | NUR ---
PATIENT REFUSED TELE MONITORING BOX, EXPLAINED THE RISK AND BENEFIT, STRONGLY REFUSED. CONTINUE TO MONITOR. CONTINUE TO OFFER MONITORING.
[2017-12-21] MEDS: LABETALOL HCL 200 MG TABLET PO SCH (22:00)
--- NOTE | 2017-12-21 23:15 | NUR ---
PATIENT HAD DIALYSIS TODAY TAKEN OUT 2800CC PER DIALYSIS NURSE. TOLERATE WELL, OFFERED PATIENT HIS BP MEDICATIONS, ABLE TO PERSUADE TO TAKE THE MEDS. WILL CONTINUE TO MONITOR.
[2017-12-21] MEDS: HYDROMORPHONE 1 MG/1 ML DISP.SYRIN IV PRN (23:37)
[2017-12-22 00:09] VITALS: BP 182/106
[2017-12-22] MEDS: ONDANSETRON 4 MG/2 ML VIAL IV PRN ×2 (00:12→13:39)
--- NOTE | 2017-12-22 00:58 | NUR ---
PATIENT BP ELEVATED, PATIENT BEEN REFUSING MOST OF THE MEDICATIONS WHICH INCLUDED BLOOD PRESSURED MEDICATION, PATIENT UNCOOPERATIVE WITH THE CARE. MD WAS AWARE OF THE BEHAVIOR. PATIENT COMPLAIN OF GEN./HEADACHE PATIENT AFTER DIALYSIS, MEDICATED FOR PAIN AND NAUSEA. PATIENT HAS NO COMPLAIN OF DIZZINESS, PATIENT ALERT ORIENTED, NO ADVERSE CHANGES NOTED, WILL CONTNUE TO MONITOR. NO S/S OF DISTRESS.
[2017-12-22] MEDS: HYDROMORPHONE 1 MG/1 ML DISP.SYRIN IV PRN ×3 (04:22→20:39)
[2017-12-22 04:46] VITALS: BP 180/104
--- NOTE | 2017-12-22 05:00 | NUR ---
PATIENT REMOVES TELE MONITORING, COMPLAIN OF ITCHING OF THE SKIN WHEN TELE LEADS ATTACHED, EXPLAINED THE RISK AND BENEFITS OF TELE. PATIENT CONTINUE TO REFUSED MOST OF PO MEDICATIONS, EXPLAINED THE RISK AND BENEFIT.PATIENT BLOOD PRESSURE STILL HIGH, PATIENT ASYMPTOMATIC, NO DIZZINESS, CONTINUE ON PAIN MANAGEMENT, NO HEADACHES NOTED AT THIS TIME. ENDORSED TO NEXT SHIFT, CONT TO MONITOR.
[2017-12-22] MEDS: LABETALOL HCL 200 MG TABLET PO SCH ×3 (06:00→22:04)
[2017-12-22 06:46] LABS: BASOPHILS % (AUTO) 0.6 % (0.0-2.0); EOSINOPHILS # (AUTO) 0.3 K/uL (0.0-0.7); EOSINOPHILS % (AUTO) 6.5 % (0.0-7.0); HEMATOCRIT 26.3 % (36.7-47.1); HEMOGLOBIN 8.7 g/dL (12.5-16.3); LYMPHOCYTES # (AUTO) 1.1 K/uL (20.0-40.0); LYMPHOCYTES % (AUTO) 26.8 % (20.5-51.5); MEAN CORPUSCULAR HEMOGLOBIN 30.7 uug (23.8-33.4); MEAN CORPUSCULAR HGB CONC 33 g/dL (32.5-36.3); MEAN CORPUSCULAR VOLUME 92.5 fL (73.0-96.2); MONOCYTES # (AUTO) 0.3 K/uL (2.0-10.0); MONOCYTES % (AUTO) 8.7 % (0.0-11.0); NEUTROPHILS # (AUTO) 2.3 K/uL (1.8-8.9); NEUTROPHILS % (AUTO) 57.4 % (38.5-71.5); RED BLOOD CELL COUNT(AUTO) 2.84 MIL/uL (4.06-5.63)
[2017-12-22 06:56] LABS: MAGNESIUM 2.4 mg/dL (1.8-2.4); PHOSPHOROUS 6.9 mg/dL (2.5-4.9); POTASSIUM 4.7 mmol/L (3.5-5.1)
[2017-12-22 07:13] LABS: PLATELET COUNT (AUTO) 187 K/uL (152-348)
[2017-12-22] MEDS: METOCLOPRAMIDE HCL 10 MG TABLET PO SCH ×3 (07:30→16:30)
[2017-12-22 07:53] LABS: CREATININE 13.7 mg/dL (0.6-1.3)
[2017-12-22] MEDS: CALCIUM ACETATE 667 MG CAPSULE PO SCH ×3 (08:00→16:37)
--- NOTE | 2017-12-22 08:00 | NUR ---
RECEIVED CRITICAL LAB RESULTS BUN IS 84 AND CR [id number] HANSON WITH NO NEW ORDERS PATIENT WILL HAVE DIALYSIS TODAY.
[2017-12-22] MEDS: PAROXETINE HCL 10 MG TABLET PO SCH (08:32)
[2017-12-22] MEDS: PANTOPRAZOLE SODIUM 40 MG TABLET.DR PO SCH (08:32)
[2017-12-22] MEDS: BENAZEPRIL HCL 20 MG TABLET PO SCH (08:32)
[2017-12-22] MEDS: FOLIC ACID/VITAMIN B COMP W-C TABLET PO SCH (08:32)
[2017-12-22] MEDS: AMLODIPINE 5 MG TABLET PO SCH ×2 (08:32→16:36)
[2017-12-22 11:11] VITALS: BP_SYST 149; BP_SYST 154; BP_DIAS 86; BP_DIAS 90
[2017-12-22] MEDS ORDERED: diphenhydrAMINE 25 MG CAP PO PRN (12:00)
--- NOTE | 2017-12-22 12:12 | NUR ---
DIALYSIS COMPLETED AND 2000 ML REMOVED AND PATIENT TOLERATED PROCEDURE WELL.
--- NOTE | 2017-12-22 13:56 | NUR ---
DR RAMESH HERE TO SEE PATIENT WITH TELEMETRY DISCONTINUED PATIENT HAS CONTINUOUSLY REFUSED TO HAVE THE TELEMETRY APPLIED ORDERED.
[2017-12-22 15:38] VITALS: BP 167/100
--- NOTE | 2017-12-22 16:37 | NUR ---
PATIENT REFUSED ALL OF HIS MEDICATIONS INCLUDING THE NORVASC EVEN THOUGH HIS BLOOD PRESSURE IS 167/100 AT THIS TIME STATED NO NO MORE MY BLOOD PRESSURE IS OKAY BENEFITS OF TAKING HIS MEDICATIONS EXPLAINED TO HIM, HE EXPRESSED UNDERSTANDING BUT CONTINUES TO REFUSE.PATIENTS RIGHTS TO REFUSE RESPECTED WILL CONTINUE TO OBSERVE.PATIENT IS ASSYMPTOMATIC AT THIS TIME.
--- NOTE | 2017-12-22 17:31 | NUR ---
PATIENT CALLED AND STATED THAT HIS LEFT ARM AV SHUNT SITE WAS BLEEDING HE APPARENTLY REMOVED THE PRESSURE DRESSING THAT WAS APPLIED BY THE STRATE[employer]IC INSIGHTS LEAD AFTER THIS DIALYSIS THIS AFTERNOON NOTED A STEADY STREAM OF BLOOD CLEANSED AND PRESSURE APPLIES AND PRESSURE DRESSING REAPPLIED AND PATIENT ENCOURAGED TO DO NOT REMOVE THE DRESSING FOR A WHILE TO PREVENT BLEEDING AND HE EXPRESSED UNDERSTANDING.WILL CONTINUE TO OBSERVE.
--- NOTE | 2017-12-22 18:27 | NUR ---
DRESSING LEFT FOREARM REMAIN DRY AND INTACT AT THIS TIME WILL CONTINUE TO OBSERVE.
[2017-12-22 19:27] VITALS: BP 160/96
--- NOTE | 2017-12-22 19:50 | NUR ---
RECEIVED IN BED ALERT ORIENTED, AMBULATE ON HALLWAYS, NO BLEEDING NOTED FROM AV SHUNT ON LEFT FOREARM, NO COMPLAIN OF PAIN AT THIS TIME. CONT TO MONITOR. BP STILL ELEVATED, ASYMPTOMATIC AT THIS TIME. CONT TO MONITOR.
[2017-12-23] MEDS: HYDROMORPHONE 1 MG/1 ML DISP.SYRIN IV PRN ×4 (00:52→18:28)
[2017-12-23] MEDS: ONDANSETRON 4 MG/2 ML VIAL IV PRN ×3 (01:10→22:36)
[2017-12-23 03:28] VITALS: BP 162/86
[2017-12-23] MEDS: LABETALOL HCL 200 MG TABLET PO SCH ×3 (06:11→22:13)
--- NOTE | 2017-12-23 07:20 | NUR ---
Received report from material handler 1st shift, patient awake in bed, not in any form of distress, bed in low position, side rails up x 2, call light in reach.
--- NOTE | 2017-12-23 07:28 | NUR ---
PATIENT SLEPT ON AND OFF, CONT ON PAIN MANAGEMENT, NO FURTHER BLEEDING NOTED ON AV SHUNT ON L FOREARM, KEPT COMFORTABLE, CONT TO MONITOR.
[2017-12-23] MEDS: METOCLOPRAMIDE HCL 10 MG TABLET PO SCH ×3 (08:50→17:19)
[2017-12-23] MEDS: FOLIC ACID/VITAMIN B COMP W-C TABLET PO SCH (08:51)
[2017-12-23] MEDS: CALCIUM ACETATE 667 MG CAPSULE PO SCH ×3 (08:51→17:19)
[2017-12-23] MEDS: PAROXETINE HCL 10 MG TABLET PO SCH (08:51)
[2017-12-23] MEDS: PANTOPRAZOLE SODIUM 40 MG TABLET.DR PO SCH (08:52)
[2017-12-23] MEDS: BENAZEPRIL HCL 20 MG TABLET PO SCH (08:55)
[2017-12-23] MEDS: AMLODIPINE 5 MG TABLET PO SCH ×2 (08:55→17:28)
[2017-12-23 11:12] VITALS: BP 166/100
[2017-12-23 15:27] VITALS: BP 164/100
--- NOTE | 2017-12-23 17:59 | NUR ---
Patient has been cooperative with care, took all his medications today. With complains of pain, prn pain medications given with pain relief. No other complaints made. No distress noted at this time. Blood pressure remains elevated, patient asymptomatic at this time. Patient afebrile. Bed in low position. Side rails up x 2. Call light within reach.
[2017-12-23 19:27] VITALS: BP 160/98
--- NOTE | 2017-12-23 19:30 | NUR ---
Patient in stable condition at start of shift. No acute distress noted. BP elevated at 160/98, patient asymptomatic. Per day shift nurse, aware of hypertension with NNOs for PRN meds. A/Ox4 & able to make all his needs known. Skin intact. Noted with left jugular 20G IV site which is locked, patent, & flushing well. Patient on dialysis, has an AV Shunt Left forearm. To received dialysis tomorrow per day shift nurse. Patient denying pain at start of shift. Bed in low position, locked, x2 side rails up. Call light in reach. Will continue to monitor through shift.
[2017-12-24] MEDS: HYDROMORPHONE 1 MG/1 ML DISP.SYRIN IV PRN ×4 (00:36→21:02)
[2017-12-24 03:27] VITALS: BP 157/91
--- NOTE | 2017-12-24 06:26 | NUR ---
Slept intermittently through the night. C/O of pain LUE & headache. Pain management provided. BP currently at 157/91. Compliant with care. All needs attended to. Medications administered per MD order. Left jugular IV site infiltrated. New IV started during the shift right wrist 22G. Patient tolerated well. AV shunt in left forearm intact. Safety measures implemented. Call light within reach. Will endorse to oncoming shift.
[2017-12-24] MEDS: LABETALOL HCL 200 MG TABLET PO SCH ×5 (06:41→21:02)
[2017-12-24] MEDS: METOCLOPRAMIDE HCL 10 MG TABLET PO SCH ×4 (07:30→16:30)
--- NOTE | 2017-12-24 07:30 | NUR ---
PATIENT RECEIVED ON BED ASLEEP AAOX4. NO ACUTE DISTRESS NOTED. IV ACCESS ON RIGHT WRIST #22 INTACT AND PATENT. NO COMPLAINTS OF PAIN/ DISCOMFORT AT THIS TIME. COMFORT MEASURES PROVIDED. CALL LIGHT WITHIN REACH WILL CONTINUE TO MONITOR CLOSELY.
[2017-12-24] MEDS: CALCIUM ACETATE 667 MG CAPSULE PO SCH ×4 (08:00→17:00)
[2017-12-24] MEDS: FOLIC ACID/VITAMIN B COMP W-C TABLET PO SCH (09:00)
[2017-12-24] MEDS: PAROXETINE HCL 10 MG TABLET PO SCH (09:00)
[2017-12-24] MEDS: AMLODIPINE 5 MG TABLET PO SCH ×2 (09:00→17:00)
[2017-12-24] MEDS: PANTOPRAZOLE SODIUM 40 MG TABLET.DR PO SCH (09:00)
[2017-12-24] MEDS: BENAZEPRIL HCL 20 MG TABLET PO SCH (09:00)
--- NOTE | 2017-12-24 09:30 | NUR ---
PATIENT REFUSED AM MEDS INCLUDING BP MEDICATIONS, W/ BP OF 180/107 IL 77. PATIENT AWARE OF BLOOD PRESSURE. EXPLAINED RISKS OF NOT TAKING MEDS. WILL CONTINUE TO MONITOR CLOSELY.
[2017-12-24 11:18] VITALS: BP 149/103
--- NOTE | 2017-12-24 14:00 | NUR ---
PATIENT REFUSED LABETALOL 200MG. WHEN ASKED IF PATIENT WANTED TO TAKE MEDICATION, PATIENT STATED "DO I LOOK LIKE SOMEONE WHO WANTS TO TAKE PILLS" AND "YOU WOKE ME UP FOR ONE BLOOD PRESSURE MEDICATION". BP 172/116 HR 74. WILL CONTINUE TO MONITOR CLOSELY.
--- NOTE | 2017-12-24 14:27 | NUR ---
PATIENT CALLED SAID HE WANTED TO TAKE LABETALOL 200MG PO, LABETALOL GIVEN. ALSO C/O PAIN 10/10 ON LEFT SIDE, ADMINISTERED DILAUDID IV. WILL CONTINUE TO MONITOR CLOSELY
--- NOTE | 2017-12-24 15:05 | NUR ---
PATIENT STARTED HD. WILL CONTINUE TO MONITOR CLOSELY.
[2017-12-24 15:21] VITALS: BP 172/116
[2017-12-24 17:44] VITALS: BP 164/100
--- NOTE | 2017-12-24 17:46 | NUR ---
PATIENT FINISHED DIALYSIS AND 2000 CC WAS THE TOTAL OUTPUT/REMOVED. VITAL SIGNS WERE REASSESED. BLOOD PRESSURE UPON ASSESSMENT IS 164/100 AND HR=72. BLOOD PRESSURE MEDICATIONS, ALONG WITH ROUTINE MEDICATIONS, WAS REFUSED BY PATIENT AFTER PROVIDING EDUCATION ON RISKS AND BENEFITS. WILL CONTINUE TO MONITOR CLOSELY.
--- NOTE | 2017-12-24 18:20 | NUR ---
PATIENT WAS ASSESSED AND SEEN AT BEDSIDE WHILE RESTING. PATIENT IS ALERT AND ORIENTED X4. PATIENT SHOWS NO SIGNS/SYMPTOMS OF RESPIRATORY DISTRESS. PATIENT IS NON-COMPLIANT WITH MOST OF THE MEDICAL REGIMEN AND TREATMENT. PATIENTS BLOOD PRESSURE RUNS HIGH AND STILL REFUSES TO TAKE BLOOD PRESSURE MEDICATIONS. PATIENT WAS PROVIDED WITH EDUCATION ABOUT RISKS AND BENEFITS OF THE BLOOD PRESSURE MEDICATIONS THAT WERE PRESCRIBED BY HIS MD. DIET: PATIENT IS ON CALORIE COUNT FOR EVERY MEAL AND IS DOCUMENTED. PATIENT RECEIVED DIALYSIS TODAY AT 1500. DIALYSIS NURSE REMOVED 2000CC BY THE END OF THE DIALYSIS. PATIENT IS IN STABLE CONDITION. WILL MONITOR CLOSELY.
--- NOTE | 2017-12-24 19:30 | NUR ---
PATIENT STABLE AT START OF SHIFT. LYING COMFORTABLY IN BED, EASY TO AROUSE. PERTINENT ASSESSMENT COMPLETED AT START OF SHIFT. BP SLIGHTLY ELEVATED AT 157/92. PATIENT NONE TO BE NON COMPLIANT WITH BP MEDS. WILL EDUCATE PATIENT, MONITOR BP CLOSELY, & ADMINISTER MEDS PER MD ORDER. AV SHUNT LUE IS INTACT. RIGHT WRIST IV SITE IS PATENT, FLUSHING WELL, & LOCKED. C/O PAIN AT START OF SHIFT. WILL PROVIDE PAIN MANAGEMENT PER ORDER. CALL LIGHT WITHIN REACH. WILL CONTINUE TO MONITOR THROUGH SHIFT.
[2017-12-24 20:27] VITALS: BP 157/92
--- NOTE | 2017-12-24 21:05 | NUR ---
PATIENT REFUSED LABETALOL MED FOR THE EVENING. PER PATIENT, "I TAKE TOO MANY MEDICATIONS FOR BP". EXPLAINED RISKS & BENEFITS. EDUCATED PATIENT ON THE IMPORTANCE OF TAKING HIS MEDS & MED COMPLIANCE. CONTINUES TO REFUSE. WILL CONTINUE TO MONITOR.
[2017-12-25] MEDS: HYDROMORPHONE 1 MG/1 ML DISP.SYRIN IV PRN (03:52)
[2017-12-25 05:27] VITALS: BP 174/96
[2017-12-25] MEDS: LABETALOL HCL 200 MG TABLET PO SCH (06:00)
--- NOTE | 2017-12-25 06:15 | NUR ---
Stable throughout the shift. No acute distress noted. Slept intermittently during the night. Non compliant with medications. Continues to refuse Labetalol med. Explained risks/benefits. Educated patient & continues to refuse. Patient asymptomatic. C/O pain on left side of body. Pain management provided. All needs attended to. Safety measures implemented. Call light within reach. Will endorse to day shift nurse.
[2017-12-25] MEDS: METOCLOPRAMIDE HCL 10 MG TABLET PO SCH ×2 (07:30→11:30)
--- NOTE | 2017-12-25 07:30 | NUR ---
PATIENT RECEIVED ON BED ASLEEP AAOX4. NO ACUTE DISTRESS NOTED. APPEARS COMFORTABLE IV ACCESS ON RIGHT WRIST #22 INTACT AND PATENT. NO COMPLAINTS OF PAIN/ DISCOMFORT AT THIS TIME. COMFORT MEASURES PROVIDED. CALL LIGHT WITHIN REACH WILL CONTINUE TO MONITOR CLOSELY.
[2017-12-25] MEDS: CALCIUM ACETATE 667 MG CAPSULE PO SCH ×2 (08:00→12:00)
[2017-12-25 09:00] VITALS: BP 168/103
[2017-12-25] MEDS: AMLODIPINE 5 MG TABLET PO SCH (09:00)
[2017-12-25] MEDS: PANTOPRAZOLE SODIUM 40 MG TABLET.DR PO SCH (09:00)
[2017-12-25] MEDS: PAROXETINE HCL 10 MG TABLET PO SCH (09:00)
[2017-12-25] MEDS: FOLIC ACID/VITAMIN B COMP W-C TABLET PO SCH (09:00)
[2017-12-25] MEDS: BENAZEPRIL HCL 20 MG TABLET PO SCH (09:00)
--- NOTE | 2017-12-25 12:09 | NUR ---
PATIENT DISCHARGED TO HOME IN STABLE CONDITION DISCHARGE PAPERS AND INSTRUCTIONS GIVEN AND EXPLAINED TO PATIENTS PATIENTS BELONGINGS LIST CHECKED AND COMPLETED, SIGNED BY PATIENT. PATIENT REFUSED TO BE TAKEN DOWN IN WHEELCHAIR, LEFT HOSPITAL BY HIMSELF.
== END 2017-12-25 12:05 | disposition home or self-care (01) | DRG 425 ==
LOC: ER 14:30 → TELE 16:26 → MED 12-22 14:34
PROVIDERS: ADMIT Internal Medicine; ATTEND Internal Medicine Nephrology
PROC: 5A1D70Z Performance of Urinary Filtration, Intermittent, Less than 6 Hours Per Day (ICD-10-PCS; principal; 2017-12-21)
DX: E87.5 Hyperkalemia (principal); I13.2 Hypertensive heart and chronic kidney disease with heart failure and with stage 5 chronic kidney disease, or end stage renal disease; N18.6 End stage renal disease; C90.00 Multiple myeloma not having achieved remission; N25.81 Secondary hyperparathyroidism of renal origin; I50.9 Heart failure, unspecified; Z99.2 Dependence on renal dialysis; Z91.15 Patient's noncompliance with renal dialysis; Z91.19 Patient's noncompliance with other medical treatment and regimen; K29.50 Unspecified chronic gastritis without bleeding; Z79.899 Other long term (current) drug therapy; D63.0 Anemia in neoplastic disease; Z87.01 Personal history of pneumonia (recurrent); G89.4 Chronic pain syndrome
CPT/HCPCS: 36415; 70030-TC; 71045; 83735; 84100; 85025; 90937; 93005; A4663; G0378; J0360; J1170; J1815; J2405; J3490; J8597; Q0163

== ENCOUNTER 2018-01-05 00:18 | Inpatient (IN) | payer OTHER ==
[~2018-01-05] VITALS: Ht 170.2 cm; Wt 61.7 kg
[2018-01-05] MEDS ORDERED: ONDANSETRON 4 MG/2 ML VIAL IV ONE (01:00)
[2018-01-05] MEDS ORDERED: PANTOPRAZOLE SODIUM IV 80 MG in IV DEXTROSE 5% 100 ML IV ONE (01:00)
[2018-01-05] MEDS ORDERED: PANTOPRAZOLE SODIUM 40 MG VIAL ONE ×2 (01:10→01:11)
[2018-01-05] MEDS ORDERED: ONDANSETRON 4 MG/2 ML VIAL ONE (01:10)
[2018-01-05 01:11] LABS: BASOPHILS % (AUTO) 0.5 % (0.0-2.0); EOSINOPHILS # (AUTO) 0.2 K/uL (0.0-0.7); EOSINOPHILS % (AUTO) 3.3 % (0.0-7.0); HEMATOCRIT 24.2 % (36.7-47.1); HEMOGLOBIN 8.3 g/dL (12.5-16.3); LYMPHOCYTES # (AUTO) 1.3 K/uL (20.0-40.0); LYMPHOCYTES % (AUTO) 26.9 % (20.5-51.5); MEAN CORPUSCULAR HEMOGLOBIN 30.4 uug (23.8-33.4); MEAN CORPUSCULAR HGB CONC 34 g/dL (32.5-36.3); MEAN CORPUSCULAR VOLUME 88.9 fL (73.0-96.2); MONOCYTES # (AUTO) 0.4 K/uL (2.0-10.0); MONOCYTES % (AUTO) 8.1 % (0.0-11.0); NEUTROPHILS % (AUTO) 61.2 % (38.5-71.5); PLATELET COUNT (AUTO) 205 K/uL (152-348); RED BLOOD CELL COUNT(AUTO) 2.72 MIL/uL (4.06-5.63); WHITE BLOOD COUNT (AUTO) 4.9 K/uL (3.6-10.2)
[2018-01-05 01:27] LABS: BILIRUBIN,DIRECT 0.2 mg/dL (0.0-0.2); BILIRUBIN,TOTAL 0.9 mg/dL (0.2-1.0); TOTAL PROTEIN, SERUM 9.4 g/dL (6.4-8.2)
[2018-01-05 01:45] LABS: POTASSIUM 6.6 mmol/L (3.5-5.1)
[2018-01-05] MEDS ORDERED: LABETALOL HCL 100 MG/20 ML VIAL IV ONE ×2 (01:45→02:45)
[2018-01-05 01:47] LABS: CREATININE 19.9 mg/dL (0.6-1.3)
[2018-01-05] MEDS ORDERED: LABETALOL HCL 100 MG/20 ML VIAL ONE (01:47)
[2018-01-05] MEDS ORDERED: HYDROCODONE/APAP 5-325MG TABLET PO ONE (02:00)
[2018-01-05] MEDS ORDERED: HYDROCODONE/APAP 5-325MG TABLET ONE (02:00)
[2018-01-05] MEDS ORDERED: CLONIDINE HCL 0.1 MG TABLET ONE (02:21)
[2018-01-05] MEDS ORDERED: CLONIDINE HCL 0.1 MG TABLET PO ONE ×2 (02:30→03:15)
[2018-01-05 03:44] LABS: EOSINOPHILS # (AUTO) 0.1 K/uL (0.0-0.7); HEMATOCRIT 21.5 % (36.7-47.1); LYMPHOCYTES # (AUTO) 1.2 K/uL (20.0-40.0)
[2018-01-05 03:46] LABS: BASOPHILS % (AUTO) 0.6 % (0.0-2.0); EOSINOPHILS % (AUTO) 3.1 % (0.0-7.0); LYMPHOCYTES % (AUTO) 29.7 % (20.5-51.5); MEAN CORPUSCULAR HEMOGLOBIN 30.4 uug (23.8-33.4); MEAN CORPUSCULAR HGB CONC 34 g/dL (32.5-36.3); MEAN CORPUSCULAR VOLUME 89.6 fL (73.0-96.2); MONOCYTES # (AUTO) 0.3 K/uL (2.0-10.0); MONOCYTES % (AUTO) 7.9 % (0.0-11.0); NEUTROPHILS # (AUTO) 2.5 K/uL (1.8-8.9); NEUTROPHILS % (AUTO) 58.7 % (38.5-71.5); PLATELET COUNT (AUTO) 180 K/uL (152-348); WHITE BLOOD COUNT (AUTO) 4.2 K/uL (3.6-10.2)
[2018-01-05 03:47] LABS: HEMOGLOBIN 7.3 g/dL (12.5-16.3)
[2018-01-05] MEDS ORDERED: DEXTROSE 50% 50 ML DISP.SYRIN IV ONE (04:00)
[2018-01-05] MEDS ORDERED: CALCIUM CHLORIDE 1 GM/10 ML DISP.SYRIN IVP ONE ×2 (04:00→04:01)
[2018-01-05] MEDS ORDERED: INSULIN REGULAR, HUMAN 300 UNIT/3 ML VIAL IV ONE (04:00)
[2018-01-05] MEDS ORDERED: SODIUM BICARBONATE 8.4% 50 MEQ/50 ML DISP.SYRIN IV ONE ×2 (04:00→04:01)
[2018-01-05] MEDS ORDERED: INSULIN REGULAR, HUMAN 300 UNIT/3 ML VIAL ONE (04:01)
[2018-01-05] MEDS ORDERED: DEXTROSE 50% 50 ML DISP.SYRIN ONE (04:01)
[2018-01-05 06:12] VITALS: BP 204/101
[2018-01-05] MEDS ORDERED: ONDANSETRON HCL 4 MG TABLET PO PRN (07:30)
[2018-01-05] MEDS: IV D5 1/2 NS 1000 ML 1,000 ML IV SCH ×2 (08:54→20:53)
[2018-01-05] MEDS ORDERED: PANTOPRAZOLE SODIUM 40 MG VIAL IV SCH (09:22)
[2018-01-05 11:03] VITALS: BP 167/102
[2018-01-05] MEDS: AMLODIPINE 5 MG TABLET PO SCH ×3 (13:30→20:54)
[2018-01-05] MEDS ORDERED: CALCIUM CARBONATE 500 MG TAB.CHEW PO PRN (13:30)
[2018-01-05] MEDS: LABETALOL HCL 200 MG TABLET PO SCH ×3 (13:30→20:54)
[2018-01-05] MEDS ORDERED: ONDANSETRON 4 MG/2 ML VIAL IV PRN (14:45)
[2018-01-05 14:58] VITALS: BP 198/108
[2018-01-05] MEDS: HYDROMORPHONE 1 MG/1 ML DISP.SYRIN IM PRN ×2 (15:05→20:06)
[2018-01-05 15:14] VITALS: BP 198/108
[2018-01-05 15:35] VITALS: BP 189/110
[2018-01-05] MEDS: METOCLOPRAMIDE HCL 10 MG TABLET PO SCH (16:30)
[2018-01-05] MEDS: CALCIUM ACETATE 667 MG CAPSULE PO SCH (16:44)
[2018-01-05] MEDS: NOVASOURCE RENAL 237 ML LIQUID PO SCH (17:24)
[2018-01-05] MEDS: BENAZEPRIL HCL 20 MG TABLET PO SCH (17:28)
[2018-01-05 20:32] VITALS: BP 180/103
[2018-01-05] MEDS: PANTOPRAZOLE SODIUM 40 MG VIAL IV SCH (20:53)
[2018-01-05] MEDS ORDERED: SUCRALFATE 1 G TABLET PO SCH (21:00)
[2018-01-06] VITALS (7 sets, daily range): BP systolic 133–163; BP diastolic 77–96
[2018-01-06] MEDS: HYDROMORPHONE 1 MG/1 ML DISP.SYRIN IM PRN ×5 (00:14→21:29)
[2018-01-06] MEDS: METOCLOPRAMIDE HCL 10 MG TABLET PO SCH ×3 (06:32→16:30)
[2018-01-06] MEDS: LABETALOL HCL 200 MG TABLET PO SCH ×4 (06:33→21:41)
[2018-01-06] MEDS: NOVASOURCE RENAL 237 ML LIQUID PO SCH ×3 (08:00→18:00)
[2018-01-06] MEDS ORDERED: PANTOPRAZOLE SODIUM 40 MG TABLET.DR PO SCH (09:00)
[2018-01-06] MEDS: CALCIUM ACETATE 667 MG CAPSULE PO SCH ×3 (09:14→18:25)
[2018-01-06] MEDS: FOLIC ACID/VITAMIN B COMP W-C TABLET PO SCH (09:15)
[2018-01-06] MEDS: PANTOPRAZOLE SODIUM 40 MG VIAL IV SCH ×2 (09:15→21:24)
[2018-01-06] MEDS: BENAZEPRIL HCL 20 MG TABLET PO SCH (09:15)
[2018-01-06] MEDS: PAROXETINE HCL 10 MG TABLET PO SCH (09:15)
[2018-01-06] MEDS: AMLODIPINE 5 MG TABLET PO SCH ×2 (09:15→21:24)
[2018-01-06] MEDS ORDERED: SIMETHICONE 40 MG/0.6 ML 30 ML BOTTLE MC ONE (11:06)
[2018-01-06] MEDS ORDERED: PROPOFOL 200 MG/20 ML BOTTLE IV ONE (11:06)
[2018-01-06] MEDS ORDERED: LIDOCAINE HCL 2% 20 ML VIAL MC ONE (11:09)
[2018-01-06 11:46] LABS: BASOPHILS % (AUTO) 0.6 % (0.0-2.0); EOSINOPHILS # (AUTO) 0.1 K/uL (0.0-0.7); EOSINOPHILS % (AUTO) 3.5 % (0.0-7.0); HEMATOCRIT 27.1 % (36.7-47.1); HEMOGLOBIN 9.4 g/dL (12.5-16.3); LYMPHOCYTES # (AUTO) 1.2 K/uL (20.0-40.0); LYMPHOCYTES % (AUTO) 29.6 % (20.5-51.5); MEAN CORPUSCULAR HEMOGLOBIN 31.1 uug (23.8-33.4); MEAN CORPUSCULAR HGB CONC 35 g/dL (32.5-36.3); MONOCYTES # (AUTO) 0.4 K/uL (2.0-10.0); MONOCYTES % (AUTO) 10.5 % (0.0-11.0); NEUTROPHILS # (AUTO) 2.3 K/uL (1.8-8.9); NEUTROPHILS % (AUTO) 55.8 % (38.5-71.5); PLATELET COUNT (AUTO) 192 K/uL (152-348); RED BLOOD CELL COUNT(AUTO) 3.01 MIL/uL (4.06-5.63); WHITE BLOOD COUNT (AUTO) 4.1 K/uL (3.6-10.2)
[2018-01-06 11:53] LABS: POTASSIUM 5.6 mmol/L (3.5-5.1)
[2018-01-06 11:54] LABS: CREATININE 15.6 mg/dL (0.6-1.3)
[2018-01-06] MEDS ORDERED: FENTANYL CITRATE 100 MCG/2 ML AMPUL ONE (11:55)
[2018-01-06 12:05] LABS: BILIRUBIN,TOTAL 1.3 mg/dL (0.2-1.0); MAGNESIUM 2.4 mg/dL (1.8-2.4)
[2018-01-07] MEDS: HYDROMORPHONE 1 MG/1 ML DISP.SYRIN IM PRN ×5 (01:52→21:23)
[2018-01-07 05:25] VITALS: BP 163/95
[2018-01-07] MEDS: LABETALOL HCL 200 MG TABLET PO SCH ×4 (06:00→21:24)
[2018-01-07 06:43] LABS: BASOPHILS % (AUTO) 0.7 % (0.0-2.0); EOSINOPHILS # (AUTO) 0.1 K/uL (0.0-0.7); EOSINOPHILS % (AUTO) 3.4 % (0.0-7.0); HEMATOCRIT 26.3 % (36.7-47.1); LYMPHOCYTES # (AUTO) 1.5 K/uL (20.0-40.0); LYMPHOCYTES % (AUTO) 38.9 % (20.5-51.5); MEAN CORPUSCULAR HEMOGLOBIN 30.5 uug (23.8-33.4); MEAN CORPUSCULAR HGB CONC 34 g/dL (32.5-36.3); MONOCYTES # (AUTO) 0.4 K/uL (2.0-10.0); MONOCYTES % (AUTO) 9.7 % (0.0-11.0); NEUTROPHILS # (AUTO) 1.9 K/uL (1.8-8.9); NEUTROPHILS % (AUTO) 47.3 % (38.5-71.5); PLATELET COUNT (AUTO) 171 K/uL (152-348); RED BLOOD CELL COUNT(AUTO) 2.96 MIL/uL (4.06-5.63); WHITE BLOOD COUNT (AUTO) 3.9 K/uL (3.6-10.2)
[2018-01-07 07:11] LABS: MAGNESIUM 2.5 mg/dL (1.8-2.4); POTASSIUM 5.2 mmol/L (3.5-5.1); TOTAL PROTEIN, SERUM 8.8 g/dL (6.4-8.2)
[2018-01-07 07:14] LABS: CREATININE 17.6 mg/dL (0.6-1.3); PHOSPHOROUS 9.3 mg/dL (2.5-4.9)
[2018-01-07] MEDS: METOCLOPRAMIDE HCL 10 MG TABLET PO SCH ×3 (07:30→18:05)
[2018-01-07] MEDS: NOVASOURCE RENAL 237 ML LIQUID PO SCH ×3 (08:00→17:00)
[2018-01-07] MEDS: AMLODIPINE 5 MG TABLET PO SCH ×2 (09:00→20:50)
[2018-01-07] MEDS: PANTOPRAZOLE SODIUM 40 MG VIAL IV SCH ×2 (09:00→20:49)
[2018-01-07 09:39] VITALS: BP 150/90
[2018-01-07 11:25] VITALS: BP 140/83
[2018-01-07] MEDS: CALCIUM ACETATE 667 MG CAPSULE PO SCH ×3 (12:00→18:01)
[2018-01-07 15:52] VITALS: BP 153/109
[2018-01-07] MEDS: FOLIC ACID/VITAMIN B COMP W-C TABLET PO SCH (18:01)
[2018-01-07] MEDS: BENAZEPRIL HCL 20 MG TABLET PO SCH (18:04)
[2018-01-07] MEDS: PAROXETINE HCL 10 MG TABLET PO SCH (18:06)
[2018-01-07 20:54] VITALS: BP 185/111
[2018-01-08] MEDS: HYDROMORPHONE 1 MG/1 ML DISP.SYRIN IM PRN ×3 (01:22→20:24)
[2018-01-08 05:12] VITALS: BP 161/94
[2018-01-08] MEDS: LABETALOL HCL 200 MG TABLET PO SCH ×4 (05:31→22:00)
[2018-01-08] MEDS: METOCLOPRAMIDE HCL 10 MG TABLET PO SCH ×3 (06:32→16:04)
[2018-01-08] MEDS: CALCIUM ACETATE 667 MG CAPSULE PO SCH ×3 (08:00→17:23)
[2018-01-08] MEDS: FOLIC ACID/VITAMIN B COMP W-C TABLET PO SCH (09:00)
[2018-01-08] MEDS: BENAZEPRIL HCL 20 MG TABLET PO SCH ×2 (09:00→11:25)
[2018-01-08] MEDS: PAROXETINE HCL 10 MG TABLET PO SCH (09:00)
[2018-01-08] MEDS: AMLODIPINE 5 MG TABLET PO SCH ×3 (09:00→20:23)
[2018-01-08] MEDS: PANTOPRAZOLE SODIUM 40 MG VIAL IV SCH ×2 (09:03→20:23)
[2018-01-08] MEDS: NOVASOURCE RENAL 237 ML LIQUID PO SCH ×3 (09:08→17:25)
[2018-01-08 11:04] VITALS: BP 162/92
[2018-01-08 15:13] VITALS: BP 176/102
[2018-01-08 19:00] VITALS: BP 174/98
[2018-01-09] MEDS: LABETALOL HCL 200 MG TABLET PO SCH ×5 (00:20→22:27)
[2018-01-09] MEDS: HYDROMORPHONE 1 MG/1 ML DISP.SYRIN IM PRN ×2 (00:46→09:52)
[2018-01-09 04:00] VITALS: BP 136/80
[2018-01-09] MEDS: METOCLOPRAMIDE HCL 10 MG TABLET PO SCH ×3 (07:26→15:55)
[2018-01-09] MEDS: CALCIUM ACETATE 667 MG CAPSULE PO SCH ×3 (08:00→16:01)
[2018-01-09] MEDS: NOVASOURCE RENAL 237 ML LIQUID PO SCH (08:00)
[2018-01-09] MEDS: BENAZEPRIL HCL 20 MG TABLET PO SCH (09:00)
[2018-01-09] MEDS: PAROXETINE HCL 10 MG TABLET PO SCH (09:00)
[2018-01-09] MEDS: PANTOPRAZOLE SODIUM 40 MG VIAL IV SCH ×2 (09:00→20:45)
[2018-01-09] MEDS: FOLIC ACID/VITAMIN B COMP W-C TABLET PO SCH (09:00)
[2018-01-09] MEDS: AMLODIPINE 5 MG TABLET PO SCH ×2 (09:00→20:45)
[2018-01-09 09:07] LABS: BASOPHILS % (AUTO) 0.4 % (0.0-2.0); EOSINOPHILS # (AUTO) 0.2 K/uL (0.0-0.7); EOSINOPHILS % (AUTO) 4.4 % (0.0-7.0); HEMATOCRIT 24.8 % (36.7-47.1); HEMOGLOBIN 8.5 g/dL (12.5-16.3); LYMPHOCYTES # (AUTO) 1.3 K/uL (20.0-40.0); LYMPHOCYTES % (AUTO) 34.5 % (20.5-51.5); MEAN CORPUSCULAR HEMOGLOBIN 30.9 uug (23.8-33.4); MEAN CORPUSCULAR HGB CONC 34 g/dL (32.5-36.3); MEAN CORPUSCULAR VOLUME 90.5 fL (73.0-96.2); MONOCYTES # (AUTO) 0.4 K/uL (2.0-10.0); NEUTROPHILS # (AUTO) 1.8 K/uL (1.8-8.9); NEUTROPHILS % (AUTO) 49.7 % (38.5-71.5); PLATELET COUNT (AUTO) 133 K/uL (152-348); RED BLOOD CELL COUNT(AUTO) 2.74 MIL/uL (4.06-5.63); WHITE BLOOD COUNT (AUTO) 3.7 K/uL (3.6-10.2)
[2018-01-09 09:22] LABS: BILIRUBIN,TOTAL 0.8 mg/dL (0.2-1.0); MAGNESIUM 2.1 mg/dL (1.8-2.4); PHOSPHOROUS 6.3 mg/dL (2.5-4.9); POTASSIUM 4.5 mmol/L (3.5-5.1); TOTAL PROTEIN, SERUM 8.3 g/dL (6.4-8.2)
[2018-01-09 09:23] LABS: CREATININE 11.1 mg/dL (0.6-1.3)
[2018-01-09 11:12] VITALS: BP 147/89
[2018-01-09 12:27] LABS: CREATININE 4.6 mg/dL (0.6-1.3); MAGNESIUM 1.9 mg/dL (1.8-2.4); PHOSPHOROUS 2.8 mg/dL (2.5-4.9); POTASSIUM 3.1 mmol/L (3.5-5.1)
[2018-01-09] MEDS ORDERED: PROCHLORPERAZINE EDISYLATE 10 MG/2 ML VIAL IV PRN (15:00)
[2018-01-09 15:15] VITALS: BP 161/94
[2018-01-09] MEDS ORDERED: NEPRO (VANILLA) 237 ML CAN PO SCH (17:00)
[2018-01-09 20:17] VITALS: BP 157/98
[2018-01-10 00:14] VITALS: BP 163/80
[2018-01-10] MEDS ORDERED: ZOLPIDEM 5 MG TABLET PO PRN (00:15)
[2018-01-10 04:00] VITALS: BP 164/85
[2018-01-10 06:00] VITALS: BP 164/87
[2018-01-10] MEDS: LABETALOL HCL 200 MG TABLET PO SCH (06:00)
[2018-01-10] MEDS: METOCLOPRAMIDE HCL 10 MG TABLET PO SCH (06:22)
== END 2018-01-10 09:05 | disposition left against medical advice (07) | DRG 241 ==
LOC: ER 00:20 → TELE 05:47 → MED 16:55 → TELE 01-09 13:50
PROVIDERS: ADMIT Internal Medicine; ATTEND Internal Medicine
PROC: 5A1D70Z Performance of Urinary Filtration, Intermittent, Less than 6 Hours Per Day (ICD-10-PCS; principal; 2018-01-05)
PROC: 30233N1 Transfusion of Nonautologous Red Blood Cells into Peripheral Vein, Percutaneous Approach (ICD-10-PCS; principal; 2018-01-05)
PROC: 0DB98ZX Excision of Duodenum, Via Natural or Artificial Opening Endoscopic, Diagnostic (ICD-10-PCS; 2018-01-06)
PROC: 0DB78ZX Excision of Stomach, Pylorus, Via Natural or Artificial Opening Endoscopic, Diagnostic (ICD-10-PCS; 2018-01-06)
DX: K29.71 Gastritis, unspecified, with bleeding (principal); C90.00 Multiple myeloma not having achieved remission; I13.11 Hypertensive heart and chronic kidney disease without heart failure, with stage 5 chronic kidney disease, or end stage renal disease; K22.11 Ulcer of esophagus with bleeding; E87.5 Hyperkalemia; N25.81 Secondary hyperparathyroidism of renal origin; N18.6 End stage renal disease; G89.4 Chronic pain syndrome; K21.0 Gastro-esophageal reflux disease with esophagitis; K44.9 Diaphragmatic hernia without obstruction or gangrene; Z99.2 Dependence on renal dialysis; Z91.15 Patient's noncompliance with renal dialysis; K57.30 Diverticulosis of large intestine without perforation or abscess without bleeding; G43.A0 Cyclical vomiting, in migraine, not intractable; D63.0 Anemia in neoplastic disease; R07.9 Chest pain, unspecified; Z91.19 Patient's noncompliance with other medical treatment and regimen; N28.1 Cyst of kidney, acquired; Z68.21 Body mass index [BMI] 21.0-21.9, adult; K29.80 Duodenitis without bleeding; F17.200 Nicotine dependence, unspecified, uncomplicated; D50.0 Iron deficiency anemia secondary to blood loss (chronic)
CPT/HCPCS: 36415; 70030-TC; 71045; 83735; 84100; 85025; 85610; 85730; 86850; 86900; 86901; 86920; 88342; 93005; A4217; A4663; C9113; G0378; J1170; J1815; J2405; J3010; J3490; J7050; J7060; J8597; P9016-BL; P9021; Q0162

== ENCOUNTER 2018-01-29 09:23 | Inpatient (IN) | payer OTHER ==
[~2018-01-29] VITALS: Ht 170.2 cm; Wt 65.8 kg
[2018-01-29] MEDS ORDERED: LABETALOL HCL 100 MG/20 ML VIAL IV ONE (09:45)
[2018-01-29] MEDS ORDERED: MORPHINE SULFATE 2 MG/1 ML DISP.SYRIN IV ONE (09:45)
[2018-01-29] MEDS ORDERED: ONDANSETRON 4 MG/2 ML VIAL IV ONE (09:45)
[2018-01-29] MEDS ORDERED: MORPHINE SULFATE 4 MG/1 ML DISP.SYRIN ONE (09:54)
[2018-01-29] MEDS ORDERED: ONDANSETRON 4 MG/2 ML VIAL ONE (09:54)
[2018-01-29 10:14] LABS: BASOPHILS % (AUTO) 0.6 % (0.0-2.0); EOSINOPHILS # (AUTO) 0.4 K/uL (0.0-0.7); EOSINOPHILS % (AUTO) 7.9 % (0.0-7.0); HEMOGLOBIN 7.8 g/dL (12.5-16.3); LYMPHOCYTES # (AUTO) 1.5 K/uL (20.0-40.0); LYMPHOCYTES % (AUTO) 30.7 % (20.5-51.5); MEAN CORPUSCULAR HEMOGLOBIN 30.6 uug (23.8-33.4); MEAN CORPUSCULAR HGB CONC 34 g/dL (32.5-36.3); MEAN CORPUSCULAR VOLUME 90.2 fL (73.0-96.2); MONOCYTES # (AUTO) 0.5 K/uL (2.0-10.0); MONOCYTES % (AUTO) 10.2 % (0.0-11.0); NEUTROPHILS # (AUTO) 2.4 K/uL (1.8-8.9); NEUTROPHILS % (AUTO) 50.6 % (38.5-71.5); PLATELET COUNT (AUTO) 204 K/uL (152-348); RED BLOOD CELL COUNT(AUTO) 2.55 MIL/uL (4.06-5.63); WHITE BLOOD COUNT (AUTO) 4.8 K/uL (3.6-10.2)
[2018-01-29 10:23] LABS: POTASSIUM 5.1 mmol/L (3.5-5.1)
[2018-01-29 10:24] LABS: CREATININE 16.5 mg/dL (0.6-1.3)
[2018-01-29 10:38] LABS: BILIRUBIN,DIRECT 0.1 mg/dL (0.0-0.2); BILIRUBIN,TOTAL 0.6 mg/dL (0.2-1.0)
[2018-01-29] MEDS ORDERED: hydrALAZINE HCL 20 MG/1 ML VIAL ONE (10:41)
[2018-01-29 10:42] LABS: MAGNESIUM 2.2 mg/dL (1.8-2.4)
[2018-01-29] MEDS ORDERED: hydrALAZINE HCL 20 MG/1 ML VIAL IV ONE (10:45)
[2018-01-29 13:20] VITALS: BP 163/101
[2018-01-29 15:45] VITALS: BP 177/107
[2018-01-29] MEDS ORDERED: ACETAMINOPHEN 325 MG TABLET PO PRN (16:15)
[2018-01-29] MEDS ORDERED: ONDANSETRON 4 MG/2 ML VIAL IV PRN (16:15)
[2018-01-29] MEDS ORDERED: MAGNESIUM HYDROXIDE 30 ML LIQUID UDC PO PRN (16:15)
[2018-01-29] MEDS ORDERED: CALCIUM CARBONATE 500 MG TAB.CHEW PO PRN (16:15)
[2018-01-29] MEDS ORDERED: Z GUARD REMEDY PASTE 57 GM TUBE TOP PRN (16:15)
[2018-01-29] MEDS ORDERED: ZOLPIDEM 5 MG TABLET PO PRN (16:15)
[2018-01-29] MEDS ORDERED: HYDROCODONE/APAP 5-325MG TABLET PO PRN (16:15)
[2018-01-29] MEDS: CALCIUM ACETATE 667 MG CAPSULE PO SCH (17:45)
[2018-01-29] MEDS: METOCLOPRAMIDE HCL 10 MG TABLET PO SCH (17:46)
[2018-01-29 19:25] VITALS: BP 199/117
[2018-01-29] MEDS: LABETALOL HCL 200 MG TABLET PO SCH (21:32)
[2018-01-29] MEDS: AMLODIPINE 5 MG TABLET PO SCH (21:33)
[2018-01-29 23:51] VITALS: BP 186/110
[2018-01-30 03:28] VITALS: BP 168/94
[2018-01-30] MEDS: LABETALOL HCL 200 MG TABLET PO SCH ×3 (05:49→22:45)
[2018-01-30] MEDS: AMLODIPINE 5 MG TABLET PO SCH ×2 (08:54→22:46)
[2018-01-30] MEDS: CALCIUM ACETATE 667 MG CAPSULE PO SCH ×3 (08:54→17:16)
[2018-01-30] MEDS: METOCLOPRAMIDE HCL 10 MG TABLET PO SCH ×3 (08:54→16:30)
[2018-01-30] MEDS: BENAZEPRIL HCL 20 MG TABLET PO SCH (08:55)
[2018-01-30] MEDS: PAROXETINE HCL 10 MG TABLET PO SCH (08:56)
[2018-01-30] MEDS: FOLIC ACID/VITAMIN B COMP W-C TABLET PO SCH (09:00)
[2018-01-30] MEDS ORDERED: Medication Not On Formulary EA (Benazepril Hcl 40 MG) PO SCH (09:00)
[2018-01-30] MEDS: PANTOPRAZOLE SODIUM 40 MG TABLET.DR PO SCH (09:00)
[2018-01-30 10:26] LABS: BASOPHILS % (AUTO) 0.3 % (0.0-2.0); EOSINOPHILS # (AUTO) 0.3 K/uL (0.0-0.7); EOSINOPHILS % (AUTO) 7.3 % (0.0-7.0); HEMATOCRIT 25.4 % (36.7-47.1); HEMOGLOBIN 8.6 g/dL (12.5-16.3); LYMPHOCYTES % (AUTO) 22.8 % (20.5-51.5); MEAN CORPUSCULAR HEMOGLOBIN 30.6 uug (23.8-33.4); MEAN CORPUSCULAR HGB CONC 34 g/dL (32.5-36.3); MEAN CORPUSCULAR VOLUME 90.6 fL (73.0-96.2); MONOCYTES # (AUTO) 0.4 K/uL (2.0-10.0); MONOCYTES % (AUTO) 9.7 % (0.0-11.0); NEUTROPHILS # (AUTO) 2.7 K/uL (1.8-8.9); NEUTROPHILS % (AUTO) 59.9 % (38.5-71.5); PLATELET COUNT (AUTO) 223 K/uL (152-348); WHITE BLOOD COUNT (AUTO) 4.5 K/uL (3.6-10.2)
[2018-01-30 11:00] VITALS: BP 136/80
[2018-01-30 11:33] LABS: MAGNESIUM 1.9 mg/dL (1.8-2.4); PHOSPHOROUS 7.1 mg/dL (2.5-4.9); POTASSIUM 4.2 mmol/L (3.5-5.1)
[2018-01-30 11:34] LABS: CREATININE 11.4 mg/dL (0.6-1.3)
[2018-01-30] MEDS: HYDROMORPHONE 1 MG/1 ML DISP.SYRIN IV PRN ×3 (12:31→22:46)
[2018-01-30 15:48] VITALS: BP 156/95
[2018-01-30 21:12] VITALS: BP 178/97
[2018-01-31] MEDS: HYDROMORPHONE 1 MG/1 ML DISP.SYRIN IV PRN ×4 (03:17→21:38)
[2018-01-31] MEDS: LABETALOL HCL 200 MG TABLET PO SCH ×3 (05:13→21:43)
[2018-01-31 06:09] VITALS: BP 158/97
[2018-01-31] MEDS: CALCIUM ACETATE 667 MG CAPSULE PO SCH ×3 (08:00→17:31)
[2018-01-31] MEDS: METOCLOPRAMIDE HCL 10 MG TABLET PO SCH ×3 (08:32→16:37)
[2018-01-31] MEDS: AMLODIPINE 5 MG TABLET PO SCH ×2 (08:37→20:26)
[2018-01-31] MEDS: FOLIC ACID/VITAMIN B COMP W-C TABLET PO SCH (08:37)
[2018-01-31] MEDS: BENAZEPRIL HCL 20 MG TABLET PO SCH ×2 (08:38→16:40)
[2018-01-31] MEDS: PAROXETINE HCL 10 MG TABLET PO SCH (08:38)
[2018-01-31] MEDS: PANTOPRAZOLE SODIUM 40 MG TABLET.DR PO SCH (08:38)
[2018-01-31 09:29] LABS: BASOPHILS % (AUTO) 0.5 % (0.0-2.0); EOSINOPHILS # (AUTO) 0.3 K/uL (0.0-0.7); EOSINOPHILS % (AUTO) 8.5 % (0.0-7.0); HEMATOCRIT 25.2 % (36.7-47.1); HEMOGLOBIN 8.5 g/dL (12.5-16.3); LYMPHOCYTES # (AUTO) 1.2 K/uL (20.0-40.0); LYMPHOCYTES % (AUTO) 32.5 % (20.5-51.5); MEAN CORPUSCULAR HEMOGLOBIN 30.7 uug (23.8-33.4); MEAN CORPUSCULAR HGB CONC 34 g/dL (32.5-36.3); MEAN CORPUSCULAR VOLUME 90.8 fL (73.0-96.2); MONOCYTES # (AUTO) 0.3 K/uL (2.0-10.0); MONOCYTES % (AUTO) 9.6 % (0.0-11.0); NEUTROPHILS # (AUTO) 1.8 K/uL (1.8-8.9); NEUTROPHILS % (AUTO) 48.9 % (38.5-71.5); PLATELET COUNT (AUTO) 185 K/uL (152-348); RED BLOOD CELL COUNT(AUTO) 2.78 MIL/uL (4.06-5.63); WHITE BLOOD COUNT (AUTO) 3.6 K/uL (3.6-10.2)
[2018-01-31 09:43] LABS: MAGNESIUM 2.2 mg/dL (1.8-2.4); PHOSPHOROUS 6.9 mg/dL (2.5-4.9); POTASSIUM 4.8 mmol/L (3.5-5.1)
[2018-01-31 09:47] LABS: CREATININE 9.8 mg/dL (0.6-1.3)
[2018-01-31 11:00] VITALS: BP 171/101
[2018-01-31 15:23] VITALS: BP 169/98
[2018-01-31 20:00] VITALS: BP 174/95
[2018-02-01] MEDS: HYDROMORPHONE 1 MG/1 ML DISP.SYRIN IV PRN ×4 (04:11→21:22)
[2018-02-01 05:00] VITALS: BP 159/100
[2018-02-01] MEDS: LABETALOL HCL 200 MG TABLET PO SCH ×3 (05:50→21:21)
[2018-02-01 07:49] VITALS: BP 178/112
[2018-02-01] MEDS: FOLIC ACID/VITAMIN B COMP W-C TABLET PO SCH (08:00)
[2018-02-01] MEDS: PANTOPRAZOLE SODIUM 40 MG TABLET.DR PO SCH (08:00)
[2018-02-01] MEDS: METOCLOPRAMIDE HCL 10 MG TABLET PO SCH ×3 (08:01→16:30)
[2018-02-01] MEDS: BENAZEPRIL HCL 20 MG TABLET PO SCH (08:01)
[2018-02-01] MEDS: CALCIUM ACETATE 667 MG CAPSULE PO SCH ×3 (08:30→17:06)
[2018-02-01] MEDS: AMLODIPINE 5 MG TABLET PO SCH ×3 (08:30→21:21)
[2018-02-01] MEDS: PAROXETINE HCL 10 MG TABLET PO SCH (08:30)
[2018-02-01 11:49] VITALS: BP 162/100
[2018-02-01 13:55] VITALS: BP 183/106
[2018-02-01 16:00] VITALS: BP 179/104
[2018-02-01 20:20] VITALS: BP_SYST 161; BP_SYST 171; BP_DIAS 106; BP_DIAS 95
[2018-02-02] MEDS: HYDROMORPHONE 1 MG/1 ML DISP.SYRIN IV PRN ×2 (01:51→12:18)
[2018-02-02 06:19] VITALS: BP 163/90
[2018-02-02] MEDS: LABETALOL HCL 200 MG TABLET PO SCH ×2 (06:23→14:00)
[2018-02-02] MEDS: METOCLOPRAMIDE HCL 10 MG TABLET PO SCH ×2 (06:30→12:18)
[2018-02-02] MEDS: CALCIUM ACETATE 667 MG CAPSULE PO SCH ×2 (08:00→12:00)
[2018-02-02] MEDS: PANTOPRAZOLE SODIUM 40 MG TABLET.DR PO SCH (09:00)
[2018-02-02] MEDS: FOLIC ACID/VITAMIN B COMP W-C TABLET PO SCH (09:00)
[2018-02-02] MEDS: PAROXETINE HCL 10 MG TABLET PO SCH (09:00)
[2018-02-02] MEDS: AMLODIPINE 5 MG TABLET PO SCH (09:00)
[2018-02-02 11:13] VITALS: BP 158/88
[2018-02-02] MEDS: BENAZEPRIL HCL 20 MG TABLET PO SCH (12:19)
[2018-02-02 15:28] VITALS: BP 156/85
== END 2018-02-02 14:50 | disposition home or self-care (01) | DRG 199 ==
LOC: ER 09:23 → TELE 12:22 → MED 01-30 15:55
PROVIDERS: ADMIT Internal Medicine; ATTEND Internal Medicine
PROC: 5A1D70Z Performance of Urinary Filtration, Intermittent, Less than 6 Hours Per Day (ICD-10-PCS; principal; 2018-01-29)
DX: I16.1 Hypertensive emergency (principal); N18.6 End stage renal disease; C90.00 Multiple myeloma not having achieved remission; E87.70 Fluid overload, unspecified; N25.81 Secondary hyperparathyroidism of renal origin; I13.11 Hypertensive heart and chronic kidney disease without heart failure, with stage 5 chronic kidney disease, or end stage renal disease; Z99.2 Dependence on renal dialysis; Z91.15 Patient's noncompliance with renal dialysis; G89.4 Chronic pain syndrome; D63.1 Anemia in chronic kidney disease; Z91.14 Patient's other noncompliance with medication regimen; N25.0 Renal osteodystrophy; Z79.899 Other long term (current) drug therapy; K29.70 Gastritis, unspecified, without bleeding; K20.9 Esophagitis, unspecified; K21.0 Gastro-esophageal reflux disease with esophagitis
CPT/HCPCS: 36415; 71045; 83735; 84100; 85025; 85730; 90937; 93005; A4663; G0378; J0360; J1170; J2270; J2405; J3490; J8597

== ENCOUNTER 2018-02-22 19:40 | Inpatient (IN) | payer OTHER ==
[~2018-02-22] VITALS: Ht 165.1 cm; Wt 60.3 kg
[~2018-02-22 19:40] MED LIST changes: -AMLO5TAB7 PO; +AMLO5TAB9 PO
[2018-02-22] MEDS ORDERED: hydrALAZINE HCL 20 MG/1 ML VIAL IV ONE (21:00)
[2018-02-22] MEDS ORDERED: METOCLOPRAMIDE HCL 10 MG/2 ML VIAL IV ONE (21:00)
[2018-02-22] MEDS ORDERED: HYDROMORPHONE 1 MG/1 ML DISP.SYRIN IV ONE (21:00)
[2018-02-22 21:12] LABS: BASOPHILS % (AUTO) 0.2 % (0.0-2.0); EOSINOPHILS # (AUTO) 0.3 K/uL (0.0-0.7); EOSINOPHILS % (AUTO) 5.5 % (0.0-7.0); HEMATOCRIT 24.4 % (36.7-47.1); HEMOGLOBIN 8.6 g/dL (12.5-16.3); LYMPHOCYTES # (AUTO) 1.1 K/uL (20.0-40.0); LYMPHOCYTES % (AUTO) 21.8 % (20.5-51.5); MEAN CORPUSCULAR HEMOGLOBIN 30.8 uug (23.8-33.4); MEAN CORPUSCULAR HGB CONC 35 g/dL (32.5-36.3); MEAN CORPUSCULAR VOLUME 87.8 fL (73.0-96.2); MONOCYTES # (AUTO) 0.6 K/uL (2.0-10.0); NEUTROPHILS # (AUTO) 3.1 K/uL (1.8-8.9); NEUTROPHILS % (AUTO) 60.5 % (38.5-71.5); PLATELET COUNT (AUTO) 231 K/uL (152-348); RED BLOOD CELL COUNT(AUTO) 2.78 MIL/uL (4.06-5.63); WHITE BLOOD COUNT (AUTO) 5.1 K/uL (3.6-10.2)
[2018-02-22] MEDS ORDERED: METOCLOPRAMIDE HCL 10 MG/2 ML VIAL ONE (21:13)
[2018-02-22] MEDS ORDERED: HYDROMORPHONE 1 MG/1 ML DISP.SYRIN ONE (21:14)
[2018-02-22] MEDS ORDERED: hydrALAZINE HCL 20 MG/1 ML VIAL ONE (21:14)
[2018-02-22 21:27] LABS: BILIRUBIN,DIRECT 0.2 mg/dL (0.0-0.2); BILIRUBIN,TOTAL 1.1 mg/dL (0.2-1.0); CREATININE 7.2 mg/dL (0.6-1.3); POTASSIUM 3.5 mmol/L (3.5-5.1); TOTAL PROTEIN, SERUM 10.8 g/dL (6.4-8.2)
--- NOTE | 2018-02-22 21:30 | NUR ---
Pt. ambulated into ED w/ c/o CANALES and joint pain 12/09, received dialysis today, test and turn up technician at bedside for transport to CT,
--- NOTE | 2018-02-22 22:48 | NUR ---
Report given to TONIO ANTHONY
[2018-02-22] MEDS ORDERED: ONDANSETRON IV *ER 4 MG/2 ML VIAL IV ONE (23:00)
[2018-02-22] MEDS ORDERED: LABETALOL HCL 100 MG/20 ML VIAL IV ONE (23:00)
[2018-02-22] MEDS ORDERED: LABETALOL HCL 100 MG/20 ML VIAL ONE (23:01)
[2018-02-22] MEDS ORDERED: ONDANSETRON 4 MG/2 ML VIAL ONE (23:09)
--- NOTE | 2018-02-22 23:26 | NUR ---
Pt. transferred off unit by RN for admit to tele, no acute distress,
--- NOTE | 2018-02-22 23:28 | NUR ---
RECEIVED PT FROM ER VIA GURNEY. PT SHOWS NO SIGNS OF DISTRESS. IV INTACT. ADMISSION PROCESS AND CARE PLAN INITIATED. CARE HOME ASSESSMENT DONE.BELONGING LIST DONE. SAFETY AND COMFORT PROVIDED. CALL LIGHT WITHIN REACH.WILL CONTINUE TO MONITOR.
[2018-02-22 23:32] VITALS: BP 183/109
[2018-02-22] MEDS ORDERED: NITROGLYCERIN OINT 1 GM PACKET TP PRN (23:45)
[2018-02-22] MEDS ORDERED: CALCIUM CARBONATE 500 MG TAB.CHEW PO PRN (23:45)
[2018-02-23] MEDS: HYDROMORPHONE 1 MG/1 ML DISP.SYRIN IV PRN ×4 (00:47→20:14)
[2018-02-23 04:00] VITALS: BP 146/101
[2018-02-23] MEDS: PANTOPRAZOLE SODIUM 40 MG TABLET.DR PO SCH (06:30)
[2018-02-23 06:34] LABS: BASOPHILS % (AUTO) 0.2 % (0.0-2.0); EOSINOPHILS # (AUTO) 0.3 K/uL (0.0-0.7); EOSINOPHILS % (AUTO) 5.4 % (0.0-7.0); HEMATOCRIT 27.1 % (36.7-47.1); HEMOGLOBIN 9.4 g/dL (12.5-16.3); LYMPHOCYTES # (AUTO) 1.5 K/uL (20.0-40.0); LYMPHOCYTES % (AUTO) 27.2 % (20.5-51.5); MEAN CORPUSCULAR HEMOGLOBIN 30.6 uug (23.8-33.4); MEAN CORPUSCULAR HGB CONC 35 g/dL (32.5-36.3); MEAN CORPUSCULAR VOLUME 88.2 fL (73.0-96.2); MONOCYTES # (AUTO) 0.6 K/uL (2.0-10.0); MONOCYTES % (AUTO) 10.3 % (0.0-11.0); NEUTROPHILS # (AUTO) 3.2 K/uL (1.8-8.9); NEUTROPHILS % (AUTO) 56.9 % (38.5-71.5); PLATELET COUNT (AUTO) 265 K/uL (152-348); RED BLOOD CELL COUNT(AUTO) 3.07 MIL/uL (4.06-5.63); WHITE BLOOD COUNT (AUTO) 5.7 K/uL (3.6-10.2)
[2018-02-23 06:41] LABS: CREATININE 8.6 mg/dL (0.6-1.3); POTASSIUM 4.2 mmol/L (3.5-5.1)
--- NOTE | 2018-02-23 06:45 | NUR ---
PT SLEPT THROUGHOUT THE SHIFT. PT SHOWS NO SIGNS OF DISTRESS. PRESCRIBED MEDICATION GIVEN AND PT TOLERATED IT WELL. CALL LIGHT WITHIN REACH. IV INTACT.PAIN MANAGEMENT DONE. PAIN MEDICATION GIVEN AND PT TOLERATED IT WELL. SAFETY AND COMFORT PROVIDED. WILL ENDORSE TO DAYSHIFT NURSE FOR CONTINUITY OF CARE.
[2018-02-23] MEDS ORDERED: METOCLOPRAMIDE HCL 10 MG TABLET PO SCH (07:30)
[2018-02-23] MEDS: ONDANSETRON 4 MG/2 ML VIAL IV PRN ×3 (08:13→20:13)
[2018-02-23] MEDS: diphenhydrAMINE 50 MG/1 ML VIAL IV PRN ×3 (08:13→20:13)
--- NOTE | 2018-02-23 08:14 | NUR ---
VOMITED LARGE AMOUNT OF CLEAR YELLOW VOMITUS APPROX. 250 ML. MEDICATED WITH ZOFRAN. OBSERVED.
[2018-02-23] MEDS: FOLIC ACID/VITAMIN B COMP W-C TABLET PO SCH (08:18)
[2018-02-23] MEDS: BENAZEPRIL HCL 20 MG TABLET PO SCH (08:18)
[2018-02-23] MEDS: CALCIUM ACETATE 667 MG CAPSULE PO SCH ×3 (08:19→17:08)
[2018-02-23] MEDS: LABETALOL HCL 200 MG TABLET PO SCH ×3 (08:19→17:09)
[2018-02-23] MEDS: PAROXETINE HCL 10 MG TABLET PO SCH (08:19)
[2018-02-23] MEDS: AMLODIPINE 5 MG TABLET PO SCH ×2 (08:19→17:08)
[2018-02-23] MEDS ORDERED: Medication Not On Formulary EA (Benazepril Hcl 40 MG) PO SCH (09:00)
--- NOTE | 2018-02-23 10:00 | NUR ---
PATIENT RESTING COMFORTABLY IN BED NO SS OF PAIN OR VOMITING. CLOSELY MONITORED
[2018-02-23] MEDS: METOCLOPRAMIDE HCL 5 MG TABLET PO SCH ×2 (11:48→17:08)
[2018-02-23 12:00] VITALS: BP 138/95
--- NOTE | 2018-02-23 12:00 | NUR ---
SEEN BY DR HOPE WITH ORDER FOR HD IN AM. SEE NOTES
[2018-02-23 16:20] VITALS: BP 108/56
--- NOTE | 2018-02-23 16:23 | NUR ---
CONTINUE WITH PAIN MANAGEMENT, MEDICATED 2X FOR NAUSEA AND VOMITING WITH TEMPORARY RELIEF. NO SIGNS OF BLEEDING FROM LEFT FOREARM SHUNT. CONTINUE WITH PRESSURE DRESSING
[2018-02-23 19:00] VITALS: BP 141/97
--- NOTE | 2018-02-23 20:00 | NUR ---
Received patient awake and oriented x 3. No acute distress noted. Patient c/o generalized pain 7/10. Dialysis access on the left FA. patient and intact, auscultated the bruit and felt the thrill. Safety initiated. Call light within reach. Will closely monitor.
[2018-02-24] VITALS: BP 139/87
[2018-02-24] MEDS: HYDROMORPHONE 1 MG/1 ML DISP.SYRIN IV PRN ×5 (00:21→19:06)
[2018-02-24 04:00] VITALS: BP 131/79
--- NOTE | 2018-02-24 05:39 | NUR ---
Patient slept intermittently t/o shift. No acute distress. Reported generalized pain, medication given, stated relief. Vital signs stable. Anuric. Safety and comfort measures maintained t/o shift. TELE Sinus Rhythym at 71. Dialysis access on the left FA, patient and intact, auscultated the bruit and felt the thrill. All meds given as ordered. All needs met.
[2018-02-24] MEDS: METOCLOPRAMIDE HCL 5 MG TABLET PO SCH ×3 (06:52→16:47)
[2018-02-24] MEDS: PANTOPRAZOLE SODIUM 40 MG TABLET.DR PO SCH (06:52)
--- NOTE | 2018-02-24 07:38 | NUR ---
Patient resting comfortably in bed at this time. no signs of distress. stable condition. Dialysis planned for today. Patient refused 0600 blood draw this morning. Lab will attempt again at 0800. a/ox4, ambulatory. BP will be monitored and managed. will continue to monitor throughout shift. safety measures implemented.
[2018-02-24] MEDS: FOLIC ACID/VITAMIN B COMP W-C TABLET PO SCH (08:20)
[2018-02-24] MEDS: PAROXETINE HCL 10 MG TABLET PO SCH (08:20)
[2018-02-24] MEDS: ONDANSETRON 4 MG/2 ML VIAL IV PRN ×2 (08:39→19:06)
[2018-02-24 08:40] LABS: BASOPHILS % (AUTO) 0.6 % (0.0-2.0); EOSINOPHILS # (AUTO) 0.5 K/uL (0.0-0.7); EOSINOPHILS % (AUTO) 8.2 % (0.0-7.0); HEMATOCRIT 27.6 % (36.7-47.1); HEMOGLOBIN 9.5 g/dL (12.5-16.3); LYMPHOCYTES # (AUTO) 1.9 K/uL (20.0-40.0); LYMPHOCYTES % (AUTO) 29.7 % (20.5-51.5); MEAN CORPUSCULAR HEMOGLOBIN 30.8 uug (23.8-33.4); MEAN CORPUSCULAR HGB CONC 35 g/dL (32.5-36.3); MEAN CORPUSCULAR VOLUME 89.2 fL (73.0-96.2); MONOCYTES # (AUTO) 0.7 K/uL (2.0-10.0); MONOCYTES % (AUTO) 10.7 % (0.0-11.0); NEUTROPHILS # (AUTO) 3.3 K/uL (1.8-8.9); NEUTROPHILS % (AUTO) 50.8 % (38.5-71.5); PLATELET COUNT (AUTO) 295 K/uL (152-348); RED BLOOD CELL COUNT(AUTO) 3.09 MIL/uL (4.06-5.63); WHITE BLOOD COUNT (AUTO) 6.4 K/uL (3.6-10.2)
[2018-02-24] MEDS: AMLODIPINE 5 MG TABLET PO SCH ×2 (08:41→16:42)
[2018-02-24] MEDS: LABETALOL HCL 200 MG TABLET PO SCH ×3 (08:41→16:42)
[2018-02-24] MEDS: CALCIUM ACETATE 667 MG CAPSULE PO SCH ×3 (08:41→16:47)
[2018-02-24] MEDS: BENAZEPRIL HCL 20 MG TABLET PO SCH (08:41)
[2018-02-24 08:44] VITALS: BP 167/101
[2018-02-24 08:55] LABS: MAGNESIUM 2.3 mg/dL (1.8-2.4); POTASSIUM 4.6 mmol/L (3.5-5.1)
--- NOTE | 2018-02-24 09:00 | NUR ---
non-administration medications at 0900: Lotensin, Labetolol, Norvasc - Patient will be receiving dialysis today. Non-administration medication at 0900 - Phoslo - patient poor appetite, unable to tolerate breakfast.
[2018-02-24 09:10] LABS: CREATININE 12.4 mg/dL (0.6-1.3)
--- NOTE | 2018-02-24 09:10 | NUR ---
critical lab value called in by lab - phosphorus 10.0 and creatinine 12.4. read back completed.
[2018-02-24 11:11] VITALS: BP 132/83
[2018-02-24 14:59] VITALS: BP 120/71
--- NOTE | 2018-02-24 16:40 | NUR ---
Patient started dialysis at this time. stable condition. no signs of bleeding at AV fistula site.
--- NOTE | 2018-02-24 16:42 | NUR ---
non-administration medicaitons: Amlodipine & Labetolol - patient receiving dialysis at this time.
--- NOTE | 2018-02-24 17:41 | NUR ---
patient resting in bed at this time. Receiving dialysis. no signs of bleeding at AV fistula site. stable condition, no signs/symptoms of distress. call light within reach. pain management provided. safety measures implemented. will continue to monitor until end of shift.
--- NOTE | 2018-02-24 18:40 | NUR ---
Dialysis ended at this time due to patient complaint of blurry vision. MD contacted and ordered to check BS. Blood sugar checked = 90. MD also mentioned that it blurriness is a symptom of diaylsis. no signs of neurological deficits at this time. stable condition. blood pressure 153/104, heart rate 104. will continue to monitor.
--- NOTE | 2018-02-24 18:57 | NUR ---
patient verbalizes that the blurriness has subsided and beginning to gain normal vision back. will continue to monitor and notify next shift.
[2018-02-24 19:52] VITALS: BP 164/98
[2018-02-24] MEDS: hydrALAZINE HCL 50 MG TABLET PO PRN (20:14)
[2018-02-24] MEDS: diphenhydrAMINE 50 MG/1 ML VIAL IV PRN (20:15)
--- NOTE | 2018-02-24 20:25 | NUR ---
Patient received in bed. AAO x4. Able to make needs known. No sign of acute distress or SOB was noted. On room air. No Complain of pain at this time. Patient assessed. Complained of itching on his back, put lotion and gave IV Benadryl 25 mg. Hydralazine 50 mg given for high BP: 164/98. Safety measures maintained. Has IV line on the right wrist, patent and intact, no sign of inflammation. AV shunt on the left FA, bruit auscultated. Bed in low position, brake and alarm on, side rails up x2. Call light and personal belongings within reach. Will continue to monitor.
[2018-02-25] MEDS: HYDROMORPHONE 1 MG/1 ML DISP.SYRIN IV PRN ×4 (00:21→17:38)
[2018-02-25 05:32] VITALS: BP 154/104
--- NOTE | 2018-02-25 06:08 | NUR ---
End of the shift note Patient was stable throughout the shift and had a good sleep last night. No sign of acute distress or SOB noted. Complained of pain at 0021, Hydromorphone 1 mg IV given. Medications given as ordered. IV line on right wrist patent, no sign of inflammation. AV shunt on the left forearm, intact, bruit auscultated, thrill felt. Safety measures maintained. All needs anticipated promptly. Fall precaution maintained. Bed in low position, brake and alarm on, side rails up x2. Call light and personal belongings within reach. Continue to monitor and will endorse to the day shift nurse accordingly.
[2018-02-25] MEDS: METOCLOPRAMIDE HCL 5 MG TABLET PO SCH ×3 (06:30→16:30)
[2018-02-25] MEDS: PANTOPRAZOLE SODIUM 40 MG TABLET.DR PO SCH (06:30)
[2018-02-25] MEDS: hydrALAZINE HCL 50 MG TABLET PO PRN (06:41)
--- NOTE | 2018-02-25 07:47 | NUR ---
RECEIVED PATIENT ASLEEP S/P PAIN MEDICATION ADMINISTERED PREVIOUS SHIFT WHICH IS EFFECTIVE ON ROOM AIR WITH NO SHORTNESS OF BREATH AT THIS TIME LEFT ARM AV SHUNT IS INTACT WITH POSITIVE BRUIT AND THRILL MADE COMFORTABLE AND WILL CONTINUE TO OBSERVE.
[2018-02-25] MEDS: PAROXETINE HCL 10 MG TABLET PO SCH (08:37)
[2018-02-25] MEDS: FOLIC ACID/VITAMIN B COMP W-C TABLET PO SCH (08:38)
[2018-02-25] MEDS: CALCIUM ACETATE 667 MG CAPSULE PO SCH ×2 (08:38→16:43)
[2018-02-25] MEDS: LABETALOL HCL 200 MG TABLET PO SCH ×3 (08:40→16:43)
[2018-02-25] MEDS: AMLODIPINE 5 MG TABLET PO SCH ×2 (08:40→16:43)
[2018-02-25] MEDS: BENAZEPRIL HCL 20 MG TABLET PO SCH (08:41)
--- NOTE | 2018-02-25 10:43 | NUR ---
AMBULATING IN THE HALLWAY WITH SLOW STEADY GAIT DENIES PAIN OR DISCOMFORTS AT THIS TIME.
[2018-02-25 11:20] VITALS: BP 138/85
[2018-02-25] MEDS: SEVELAMER CARBONATE 800 MG TABLET PO SCH ×2 (12:00→17:37)
--- NOTE | 2018-02-25 12:03 | NUR ---
DR RAMESH HERE TO SEE PATIENT WITH NEW ORDERS AND NOTED.
[2018-02-25] MEDS: NEPRO (VANILLA) 237 ML CAN PO SCH ×2 (13:09→16:44)
[2018-02-25 15:59] VITALS: BP 132/72
[2018-02-25] MEDS: diphenhydrAMINE 50 MG/1 ML VIAL IV PRN ×2 (18:09→22:45)
--- NOTE | 2018-02-25 18:33 | NUR ---
CALL RECIVED BY THE [employer] VICE PRESIDENT WILL BE HERE AROUND 7-8PM TONITE TO DO DIALYSIS PATIENT AWARE.
[2018-02-25 20:00] VITALS: BP 153/91
[2018-02-26] MEDS: ONDANSETRON 4 MG/2 ML VIAL IV PRN ×2 (00:06→21:00)
[2018-02-26] MEDS: HYDROMORPHONE 1 MG/1 ML DISP.SYRIN IV PRN ×2 (00:06→04:32)
--- NOTE | 2018-02-26 00:50 | NUR ---
Patient received dialysis. No complications noted. 1L taken out stated by dialysis nurse. Will continue to monitor.
[2018-02-26] MEDS: diphenhydrAMINE 50 MG/1 ML VIAL IV PRN (04:44)
[2018-02-26 05:33] VITALS: BP 148/90
--- NOTE | 2018-02-26 06:46 | NUR ---
pt refused daily wights. Addendum: 02/26/18 at 0647 by SPENECR INFANTE RN RN Amended: Links added.
--- NOTE | 2018-02-26 06:46 | NUR ---
pt refused daily weights and medication. pt did not want to wake up and did not want to be disturbed. will endorse to day shift nurse.
[2018-02-26] MEDS: METOCLOPRAMIDE HCL 5 MG TABLET PO SCH ×3 (07:00→16:30)
[2018-02-26] MEDS: PANTOPRAZOLE SODIUM 40 MG TABLET.DR PO SCH (07:00)
--- NOTE | 2018-02-26 07:30 | NUR ---
RECEIVED SHIFT REPORT. PATIENT IS ALERT AND ORIENTED X4. BED IN LOW POSITION AND CALL LIGHT WITHIN REACH
[2018-02-26] MEDS: NEPRO (VANILLA) 237 ML CAN PO SCH ×3 (08:31→17:00)
[2018-02-26] MEDS: CALCIUM ACETATE 667 MG CAPSULE PO SCH ×3 (08:55→17:00)
[2018-02-26] MEDS: FOLIC ACID/VITAMIN B COMP W-C TABLET PO SCH (08:55)
[2018-02-26] MEDS: SEVELAMER CARBONATE 800 MG TABLET PO SCH ×3 (08:56→18:00)
[2018-02-26] MEDS: PAROXETINE HCL 10 MG TABLET PO SCH (08:56)
[2018-02-26] MEDS: LABETALOL HCL 200 MG TABLET PO SCH ×3 (08:57→17:00)
[2018-02-26] MEDS: AMLODIPINE 5 MG TABLET PO SCH ×2 (08:57→17:00)
[2018-02-26] MEDS: BENAZEPRIL HCL 20 MG TABLET PO SCH (08:58)
[2018-02-26 09:20] LABS: BASOPHILS % (AUTO) 0.4 % (0.0-2.0); EOSINOPHILS # (AUTO) 0.6 K/uL (0.0-0.7); EOSINOPHILS % (AUTO) 10.8 % (0.0-7.0); HEMATOCRIT 24.9 % (36.7-47.1); HEMOGLOBIN 8.5 g/dL (12.5-16.3); MEAN CORPUSCULAR HEMOGLOBIN 30.8 uug (23.8-33.4); MEAN CORPUSCULAR HGB CONC 34 g/dL (32.5-36.3); MEAN CORPUSCULAR VOLUME 90.2 fL (73.0-96.2); MONOCYTES # (AUTO) 0.5 K/uL (2.0-10.0); MONOCYTES % (AUTO) 9.4 % (0.0-11.0); NEUTROPHILS # (AUTO) 3.5 K/uL (1.8-8.9); NEUTROPHILS % (AUTO) 61.4 % (38.5-71.5); PLATELET COUNT (AUTO) 278 K/uL (152-348); RED BLOOD CELL COUNT(AUTO) 2.76 MIL/uL (4.06-5.63); WHITE BLOOD COUNT (AUTO) 5.7 K/uL (3.6-10.2)
[2018-02-26 09:31] LABS: BILIRUBIN,TOTAL 0.8 mg/dL (0.2-1.0); MAGNESIUM 2.5 mg/dL (1.8-2.4); PHOSPHOROUS 6.5 mg/dL (2.5-4.9); POTASSIUM 5.2 mmol/L (3.5-5.1); TOTAL PROTEIN, SERUM 9.8 g/dL (6.4-8.2)
[2018-02-26 09:33] LABS: CREATININE 10.1 mg/dL (0.6-1.3)
[2018-02-26 11:28] VITALS: BP 147/76
[2018-02-26 16:15] VITALS: BP 158/97
--- NOTE | 2018-02-26 19:02 | NUR ---
PATIENT IS ALERT AND ORIENTED X4. RECEIVED DIALYSIS TREATMENT. REFUSED MEDICATIONS. BED IS IN LOW POSITION, CALL LIGHT WITHIN REACH.
--- NOTE | 2018-02-26 19:25 | NUR ---
RECEIVED PT AWAKE, ALERT, AND ORIENTEDX4. PT SHOWS NO SIGNS OF ACUTE DISTRESS. IV INTACT AND PATENT. CALL LIGHT WITHIN REACH. SAFETY AND COMFORT PROVIDED. WILL CONTINUE TO MONITOR.
[2018-02-26 20:00] VITALS: BP 163/99
[2018-02-26] MEDS: hydrALAZINE HCL 50 MG TABLET PO PRN (21:00)
[2018-02-27] MEDS: ONDANSETRON 4 MG/2 ML VIAL IV PRN ×3 (03:33→18:00)
[2018-02-27 04:00] VITALS: BP 149/75
--- NOTE | 2018-02-27 06:28 | NUR ---
PT SLEPT THROUGHOUT THE SHIFT. PT SHOWS NO SIGNS OF DISTRESS. IV INTACT.PRESCRIBED MEDICATION GIVEN AND PT TOLERATED IT WELL. SAFETY AND COMFORT PROVIDED.PT TOOK ZOFRAN TWICE ON MY SHIFT. PT TOLERATED IT WELL. WILL ENDORSE TO INCOMING NURSE FOR CONTINUITY OF CARE.'
[2018-02-27] MEDS: METOCLOPRAMIDE HCL 5 MG TABLET PO SCH ×3 (06:33→16:30)
[2018-02-27] MEDS: PANTOPRAZOLE SODIUM 40 MG TABLET.DR PO SCH (06:33)
[2018-02-27] MEDS: CALCIUM ACETATE 667 MG CAPSULE PO SCH ×3 (08:00→17:55)
[2018-02-27] MEDS: SEVELAMER CARBONATE 800 MG TABLET PO SCH ×3 (08:00→17:54)
[2018-02-27] MEDS: BENAZEPRIL HCL 20 MG TABLET PO SCH (08:50)
[2018-02-27] MEDS: PAROXETINE HCL 10 MG TABLET PO SCH (08:50)
[2018-02-27] MEDS: NEPRO (VANILLA) 237 ML CAN PO SCH ×3 (08:50→17:56)
[2018-02-27] MEDS: FOLIC ACID/VITAMIN B COMP W-C TABLET PO SCH (08:50)
[2018-02-27] MEDS: AMLODIPINE 5 MG TABLET PO SCH ×2 (08:50→17:55)
[2018-02-27] MEDS: LABETALOL HCL 200 MG TABLET PO SCH ×3 (08:51→17:55)
[2018-02-27 11:58] VITALS: BP 181/104
[2018-02-27 15:53] VITALS: BP 161/92
--- NOTE | 2018-02-27 17:30 | NUR ---
Spoke with patient re dialysis today was ordered by Dr jennie Ortiz. Pt refused dialysis today and notified REGAN. Discussed risk and benefits with pt on refusing his dialysis today. Pt continue to refuse.
[2018-02-27] MEDS: diphenhydrAMINE 50 MG/1 ML VIAL IV PRN (18:05)
[2018-02-27] MEDS: hydrALAZINE HCL 50 MG TABLET PO PRN (20:28)
--- NOTE | 2018-02-27 20:30 | NUR ---
Patient received prn dose of Hydralazine per MD order, for B/P = 165/87 & HR = 87. Will continue to monitor
[2018-02-27 20:31] VITALS: BP 165/87
[2018-02-27] MEDS: HYDROCODONE/APAP 5-325MG TABLET PO PRN (22:17)
--- NOTE | 2018-02-27 22:38 | NUR ---
PRN dosage of Hydralazine was effective. B/P= 151/84 & HR=84. Will continue to monitor
[2018-02-27 22:40] VITALS: BP 151/84
[2018-02-28] MEDS: diphenhydrAMINE 50 MG/1 ML VIAL IV PRN (03:06)
[2018-02-28] MEDS: ONDANSETRON 4 MG/2 ML VIAL IV PRN (03:06)
[2018-02-28] MEDS: HYDROCODONE/APAP 5-325MG TABLET PO PRN (04:22)
[2018-02-28 05:20] VITALS: BP 146/88
[2018-02-28] MEDS: CALCIUM ACETATE 667 MG CAPSULE PO SCH (08:00)
[2018-02-28] MEDS: NEPRO (VANILLA) 237 ML CAN PO SCH (08:02)
--- NOTE | 2018-02-28 08:12 | NUR ---
RECEIVED PATIENT IN BED SLEEPING , NO ACUTE DISTRESS NOTED AT THIS TIME, WILL CONTINUE CARE.
[2018-02-28] MEDS: PANTOPRAZOLE SODIUM 40 MG TABLET.DR PO SCH (08:58)
[2018-02-28] MEDS: METOCLOPRAMIDE HCL 5 MG TABLET PO SCH ×2 (08:59→11:26)
[2018-02-28] MEDS: LABETALOL HCL 200 MG TABLET PO SCH (09:00)
[2018-02-28] MEDS: SEVELAMER CARBONATE 800 MG TABLET PO SCH (09:00)
[2018-02-28] MEDS: BENAZEPRIL HCL 20 MG TABLET PO SCH (09:00)
[2018-02-28] MEDS: AMLODIPINE 5 MG TABLET PO SCH (09:00)
[2018-02-28] MEDS: PAROXETINE HCL 10 MG TABLET PO SCH (09:01)
[2018-02-28] MEDS: FOLIC ACID/VITAMIN B COMP W-C TABLET PO SCH (09:01)
--- NOTE | 2018-02-28 09:30 | NUR ---
NON ADMINISTRATIONS OF 9:00AM MEDICATIONS OF AMLODIPINE BENAZEPRIL AND LABETALOL , PATIENT WILL BE HAVING HIS DIALYSIS TODAY. NON ADMINISTRATION OF PHOSLO , PATIENT UNABLE TO TOLERATE BREAKFAST
--- NOTE | 2018-02-28 11:30 | NUR ---
PATIENT DISCHARGE TO HOME ON STABLE CONDITION, NO S/S OF ACUTE DISTRESS NOTED. NO C/O PAIN AT THIS TIME. AV SHUNT INTACT , NO BLEEDING. ID BAND AND IV REMOVED. BELONGINGS ACCOUNTED FOR. DISCHARGE INSTRUCTION GIVEN AND VERBALIZED UNDERSTANDIN, QUESTION AND CONCERNS ADDRESSED.
[2018-03-08] MEDS ORDERED: CLON0.2T12 PO (17:01)
== END 2018-02-28 11:30 | disposition home or self-care (01) | DRG 199 ==
LOC: ER 19:41 → TELE 22:58 → MED 02-24 13:20
PROVIDERS: ADMIT Internal Medicine Nephrology; ATTEND Internal Medicine Nephrology
PROC: 5A1D70Z Performance of Urinary Filtration, Intermittent, Less than 6 Hours Per Day (ICD-10-PCS; principal; 2018-02-24)
DX: I16.0 Hypertensive urgency (principal); C90.00 Multiple myeloma not having achieved remission; N18.6 End stage renal disease; N25.81 Secondary hyperparathyroidism of renal origin; E83.9 Disorder of mineral metabolism, unspecified; I12.0 Hypertensive chronic kidney disease with stage 5 chronic kidney disease or end stage renal disease; Z99.2 Dependence on renal dialysis; Z91.14 Patient's other noncompliance with medication regimen; T82.838A Hemorrhage due to vascular prosthetic devices, implants and grafts, initial encounter; G89.4 Chronic pain syndrome; K29.70 Gastritis, unspecified, without bleeding; D64.9 Anemia, unspecified; F17.200 Nicotine dependence, unspecified, uncomplicated
CPT/HCPCS: 36415; 70030-TC; 70450; 71045; 83690; 83735; 84100; 85025; 85730; 90937; 93005; A4663; G0378; J0360; J1170; J1200; J2405; J2765; J3490; J8597

== ENCOUNTER 2018-03-02 14:58 | Emergency (ER) | payer OTHER ==
[~2018-03-02] VITALS: Ht 160 cm; Wt 72.6 kg
[2018-03-02] MEDS ORDERED: SILVER NITRATE APPLICATOR STICK EACH TP ONE ×2 (15:13→15:30)
[2018-03-02] MEDS ORDERED: NEOMY/BACITRA/POLYMYXIN B OINT UD PACKET TP ONE ×2 (15:13→15:30)
--- NOTE | 2018-03-02 15:25 | NUR ---
Patient discharged to home in stable conditon. Written and verbal after care instructions given. Patient verbalizes understanding of instructions.nose bleed stopped already. pt sneezed multiple time and no guadalupe bleed.pt walks in steady gait.
[2018-03-08] MEDS ORDERED: CLON0.2T12 PO (17:01)
== END 2018-03-02 15:26 | disposition home or self-care (01) ==
LOC: ER 15:02
DX: R04.0 Epistaxis (principal); I12.0 Hypertensive chronic kidney disease with stage 5 chronic kidney disease or end stage renal disease; N18.6 End stage renal disease; Z86.2 Personal history of diseases of the blood and blood-forming organs and certain disorders involving the immune mechanism; F17.200 Nicotine dependence, unspecified, uncomplicated; F12.10 Cannabis abuse, uncomplicated; Z79.899 Other long term (current) drug therapy
CPT/HCPCS: 30901; A4663

== ENCOUNTER 2018-03-02 21:29 | Inpatient (IN) | payer OTHER ==
[~2018-03-02] VITALS: Ht 165.1 cm; Wt 62.2 kg
[2018-03-02] MEDS ORDERED: IV NORMAL SALINE 500 ML BAG IV ONE (22:00)
[2018-03-02] MEDS ORDERED: LABETALOL HCL 100 MG/20 ML VIAL IV ONE (22:00)
[2018-03-02] MEDS ORDERED: ONDANSETRON 4 MG/2 ML VIAL IV ONE (22:00)
[2018-03-02] MEDS ORDERED: HYDROMORPHONE 1 MG/1 ML DISP.SYRIN IV ONE (22:00)
[2018-03-02] MEDS ORDERED: HYDROMORPHONE 2 MG/1 ML DISP.SYRIN ONE (22:13)
[2018-03-02] MEDS ORDERED: ONDANSETRON 4 MG/2 ML VIAL ONE ×2 (22:13→23:52)
[2018-03-02] MEDS ORDERED: LABETALOL HCL 100 MG/20 ML VIAL ONE (22:22)
[2018-03-02 22:33] LABS: BASOPHILS % (AUTO) 0.4 % (0.0-2.0); EOSINOPHILS # (AUTO) 0.4 K/uL (0.0-0.7); EOSINOPHILS % (AUTO) 7.1 % (0.0-7.0); HEMATOCRIT 23.5 % (36.7-47.1); HEMOGLOBIN 7.9 g/dL (12.5-16.3); LYMPHOCYTES # (AUTO) 1.3 K/uL (20.0-40.0); LYMPHOCYTES % (AUTO) 22.4 % (20.5-51.5); MEAN CORPUSCULAR HEMOGLOBIN 30.2 uug (23.8-33.4); MEAN CORPUSCULAR HGB CONC 34 g/dL (32.5-36.3); MONOCYTES # (AUTO) 0.6 K/uL (2.0-10.0); MONOCYTES % (AUTO) 11.4 % (0.0-11.0); NEUTROPHILS # (AUTO) 3.3 K/uL (1.8-8.9); NEUTROPHILS % (AUTO) 58.7 % (38.5-71.5); PLATELET COUNT (AUTO) 198 K/uL (152-348); RED BLOOD CELL COUNT(AUTO) 2.61 MIL/uL (4.06-5.63); WHITE BLOOD COUNT (AUTO) 5.6 K/uL (3.6-10.2)
--- NOTE | 2018-03-02 22:40 | NUR ---
UNABLE TO PROVIDE URINE AT THIS TIME, AWARE.
[2018-03-02 22:48] LABS: BILIRUBIN,TOTAL 0.8 mg/dL (0.2-1.0); POTASSIUM 5.2 mmol/L (3.5-5.1); TOTAL PROTEIN, SERUM 10.1 g/dL (6.4-8.2)
[2018-03-02 23:02] LABS: CREATININE 11.5 mg/dL (0.6-1.3)
[2018-03-02 23:28] LABS: BILIRUBIN,DIRECT 0.2 mg/dL (0.0-0.2); BILIRUBIN,TOTAL 0.8 mg/dL (0.2-1.0); TOTAL PROTEIN, SERUM 9.8 g/dL (6.4-8.2)
--- NOTE | 2018-03-02 23:39 | NUR ---
Pt. admitted to TELE , under care of Dr. RICHARDSON Belongs List completed.
[2018-03-02] MEDS ORDERED: ONDANSETRON IV *ER 4 MG/2 ML VIAL IV ONE (23:45)
--- NOTE | 2018-03-03 00:25 | NUR ---
PAPERWORK FAXED TO [facility]
--- NOTE | 2018-03-03 00:55 | NUR ---
RECEIVED CALL BACK FROM [facility], PATIENT WILL BE ADMITTED HERE.
--- NOTE | 2018-03-03 01:05 | NUR ---
Admitted a 48 year old male with diagnosis of syncope and HTN. Patient A/Ox4. In no acute distress. NSR on tele at 73/minute. Complain of generalized pain, Dilaudid was given at the ER. Denies any nausea and vomiting at this time. AV fistula on the left forearm intact. IV site on right forearm intact and patent. Needs assessed and attended to. Routine admission care done. Process plan initiated. Safety measure initiated, call santos within reach.
[2018-03-03 01:30] VITALS: BP 189/106
[2018-03-03] MEDS ORDERED: HYDROCODONE/APAP 5-325MG TABLET PO PRN (01:45)
[2018-03-03] MEDS ORDERED: ACETAMINOPHEN ES 500 MG TABLET PO PRN (01:45)
[2018-03-03] MEDS ORDERED: CALCIUM CARBONATE 500 MG TABLET PO PRN (01:45)
[2018-03-03] MEDS: HYDROMORPHONE 2 MG/1 ML DISP.SYRIN IV PRN ×4 (02:25→20:13)
[2018-03-03 04:00] VITALS: BP 156/92
[2018-03-03] MEDS: PANTOPRAZOLE SODIUM 40 MG TABLET.DR PO SCH (06:32)
[2018-03-03] MEDS: METOCLOPRAMIDE HCL 5 MG TABLET PO SCH ×3 (06:32→16:22)
--- NOTE | 2018-03-03 06:34 | NUR ---
Patient AOx4. In no acute distress. NSR on tele at 71/min. Dilaudid PRN per order given for complain of gen. pain and effective. No further nausea or vomiting complained. IV site on left FA intact and patent. Needs attended to and met. Safety measure initiated and call santos within reach.
[2018-03-03 06:55] LABS: MAGNESIUM 2.5 mg/dL (1.8-2.4); PHOSPHOROUS 7.1 mg/dL (2.5-4.9); POTASSIUM 5.2 mmol/L (3.5-5.1)
[2018-03-03 07:02] LABS: CREATININE 12.2 mg/dL (0.6-1.3)
[2018-03-03 07:03] LABS: BASOPHILS % (AUTO) 0.5 % (0.0-2.0); EOSINOPHILS # (AUTO) 0.3 K/uL (0.0-0.7); EOSINOPHILS % (AUTO) 6.5 % (0.0-7.0); HEMATOCRIT 21.5 % (36.7-47.1); LYMPHOCYTES # (AUTO) 1.3 K/uL (20.0-40.0); LYMPHOCYTES % (AUTO) 26.1 % (20.5-51.5); MEAN CORPUSCULAR HEMOGLOBIN 30.5 uug (23.8-33.4); MEAN CORPUSCULAR HGB CONC 34 g/dL (32.5-36.3); MEAN CORPUSCULAR VOLUME 89.7 fL (73.0-96.2); MONOCYTES # (AUTO) 0.5 K/uL (2.0-10.0); MONOCYTES % (AUTO) 10.2 % (0.0-11.0); NEUTROPHILS # (AUTO) 2.8 K/uL (1.8-8.9); NEUTROPHILS % (AUTO) 56.7 % (38.5-71.5); PLATELET COUNT (AUTO) 180 K/uL (152-348)
[2018-03-03 07:19] LABS: HEMOGLOBIN 7.3 g/dL (12.5-16.3)
[2018-03-03] MEDS ORDERED: METOCLOPRAMIDE HCL 10 MG TABLET PO SCH (08:45)
[2018-03-03] MEDS ORDERED: CALCIUM CARBONATE 500 MG TAB.CHEW PO PRN (08:45)
[2018-03-03] MEDS ORDERED: PANTOPRAZOLE SODIUM 40 MG TABLET.DR PO SCH (08:45)
[2018-03-03] MEDS: CALCIUM ACETATE 667 MG CAPSULE PO SCH ×3 (09:16→17:00)
[2018-03-03] MEDS: AMLODIPINE 5 MG TABLET PO SCH ×2 (09:16→20:06)
[2018-03-03] MEDS: PAROXETINE HCL 10 MG TABLET PO SCH (09:17)
[2018-03-03] MEDS: BENAZEPRIL HCL 20 MG TABLET PO SCH (09:17)
[2018-03-03] MEDS: FOLIC ACID/VITAMIN B COMP W-C TABLET PO SCH (09:17)
[2018-03-03] MEDS: LABETALOL HCL 200 MG TABLET PO SCH ×3 (10:17→22:21)
--- NOTE | 2018-03-03 11:14 | NUR ---
pt c/o nose bleed dr ahuja notified
[2018-03-03 11:25] VITALS: BP 161/95
[2018-03-03 15:28] VITALS: BP 136/84
--- NOTE | 2018-03-03 20:00 | NUR ---
Received patient lying in bed. In no acute distress. Patient denies any nosebleeds at this time. Patient is on TELE with NSR at 75. Has an IV line on the right forearm, intact and patent. Has an AV shunt on the left forearm, dressing intact. Safety measures initiated. Call light is within reach. Bed is in a low and locked position. Will continue to monitor.
[2018-03-03 20:06] VITALS: BP 140/84
[2018-03-04] MEDS: HYDROMORPHONE 2 MG/1 ML DISP.SYRIN IV PRN ×2 (00:15→05:06)
[2018-03-04 00:52] VITALS: BP 182/99
[2018-03-04 04:00] VITALS: BP 183/102
[2018-03-04] MEDS: LABETALOL HCL 200 MG TABLET PO SCH ×2 (05:07→14:00)
--- NOTE | 2018-03-04 05:42 | NUR ---
Patient slept intermittently t/o shift. C/o generalized pain, Dilaudid 0.5 mg IVP given. Stated relief. B/P remains elevated, PRN medication given. TELE SR at 80. Patient remains anuric. IV on the right FA and dialysis access remains patent. No evidence of further nosebleeds. Safety and comfort measures maintained t/o shift. Patient refused protonix 40 mg. All needs met.
[2018-03-04] MEDS: PANTOPRAZOLE SODIUM 40 MG TABLET.DR PO SCH (06:03)
--- NOTE | 2018-03-04 06:03 | NUR ---
Patient is off tele monitor. Patient refuse to be put back on TELE. Will closely monitor.
[2018-03-04] MEDS: METOCLOPRAMIDE HCL 5 MG TABLET PO SCH ×2 (06:43→11:30)
[2018-03-04] MEDS: CALCIUM ACETATE 667 MG CAPSULE PO SCH ×2 (08:09→12:00)
[2018-03-04] MEDS: PAROXETINE HCL 10 MG TABLET PO SCH (08:09)
[2018-03-04] MEDS: FOLIC ACID/VITAMIN B COMP W-C TABLET PO SCH (08:09)
[2018-03-04] MEDS: BENAZEPRIL HCL 20 MG TABLET PO SCH (08:10)
[2018-03-04] MEDS: AMLODIPINE 5 MG TABLET PO SCH (08:10)
[2018-03-04 11:11] VITALS: BP 152/102
[2018-03-04] MEDS ORDERED: HYDROMORPHONE 1 MG/1 ML DISP.SYRIN IV PRN (11:30)
[2018-03-04] MEDS ORDERED: PANT40TA2 PO (13:41)
[2018-03-04 14:00] VITALS: BP 150/90
--- NOTE | 2018-03-04 14:46 | NUR ---
d/c orders received noted and carried out,d/c heplock per md orders,d/c instruction and education given to the pt,pt left the facility via walking from the hospital in stable condition.
[2018-03-08] MEDS ORDERED: CLON0.2T12 PO (17:01)
== END 2018-03-04 14:10 | disposition home or self-care (01) | DRG 48 ==
LOC: ER 21:30 → TELE 03-03 00:57 → MED 03-04 11:38
PROVIDERS: ADMIT Internal Medicine; ATTEND Internal Medicine
PROC: 5A1D70Z Performance of Urinary Filtration, Intermittent, Less than 6 Hours Per Day (ICD-10-PCS; principal; 2018-03-03)
DX: G90.8 Other disorders of autonomic nervous system (principal); C90.00 Multiple myeloma not having achieved remission; I13.11 Hypertensive heart and chronic kidney disease without heart failure, with stage 5 chronic kidney disease, or end stage renal disease; I16.0 Hypertensive urgency; N18.6 End stage renal disease; Z99.2 Dependence on renal dialysis; R04.0 Epistaxis; D63.8 Anemia in other chronic diseases classified elsewhere; D63.0 Anemia in neoplastic disease; E21.3 Hyperparathyroidism, unspecified; G89.29 Other chronic pain; Z91.19 Patient's noncompliance with other medical treatment and regimen; F17.200 Nicotine dependence, unspecified, uncomplicated; K29.70 Gastritis, unspecified, without bleeding; Z79.899 Other long term (current) drug therapy; R94.31 Abnormal electrocardiogram [ECG] [EKG]
CPT/HCPCS: 36415; 70030-TC; 70450; 71045; 83735; 84100; 85025; 85730; 93005; A4663; A9150; G0378; J1170; J2405; J3490; J8597

== ENCOUNTER 2018-03-04 14:58 | Emergency (ER) | payer OTHER ==
[~2018-03-04] VITALS: Ht 170.2 cm; Wt 74.4 kg
[~2018-03-04 14:58] MED LIST changes: +PANT40TA2 PO
--- NOTE | 2018-03-04 15:33 | NUR ---
DR TOSCANO AT THE BEDSIDE FOR MSE.
[2018-03-04] MEDS ORDERED: SILVER NITRATE APPLICATOR STICK EACH TP ONE ×2 (15:36→15:45)
[2018-03-04 15:52] VITALS: BP 167/106
--- NOTE | 2018-03-04 15:54 | NUR ---
Patient discharged to home in stable conditon. Written and verbal after care instructions given. Patient verbalizes understanding of instructions.
[2018-03-08] MEDS ORDERED: CLON0.2T12 PO (17:01)
== END 2018-03-04 15:54 | disposition home or self-care (01) ==
LOC: ER 15:01
DX: R04.0 Epistaxis (principal); F17.200 Nicotine dependence, unspecified, uncomplicated; F12.10 Cannabis abuse, uncomplicated; I10 Essential (primary) hypertension; Z86.2 Personal history of diseases of the blood and blood-forming organs and certain disorders involving the immune mechanism; Z79.899 Other long term (current) drug therapy
CPT/HCPCS: A4663

== ENCOUNTER 2018-03-06 16:38 | Inpatient (IN) | payer OTHER ==
[~2018-03-06] VITALS: Ht 165.1 cm; Wt 63.5 kg
[2018-03-06 17:57] LABS: BASOPHILS % (AUTO) 0.2 % (0.0-2.0); EOSINOPHILS # (AUTO) 0.6 K/uL (0.0-0.7); EOSINOPHILS % (AUTO) 9.1 % (0.0-7.0); LYMPHOCYTES # (AUTO) 1.3 K/uL (20.0-40.0); LYMPHOCYTES % (AUTO) 18.3 % (20.5-51.5); MEAN CORPUSCULAR HGB CONC 35 g/dL (32.5-36.3); MEAN CORPUSCULAR VOLUME 89.9 fL (73.0-96.2); MONOCYTES # (AUTO) 0.7 K/uL (2.0-10.0); MONOCYTES % (AUTO) 10.9 % (0.0-11.0); NEUTROPHILS # (AUTO) 4.2 K/uL (1.8-8.9); NEUTROPHILS % (AUTO) 61.5 % (38.5-71.5); PLATELET COUNT (AUTO) 175 K/uL (152-348); WHITE BLOOD COUNT (AUTO) 6.9 K/uL (3.6-10.2)
[2018-03-06 18:04] LABS: POTASSIUM 5.6 mmol/L (3.5-5.1)
[2018-03-06 18:09] LABS: CREATININE 17.4 mg/dL (0.6-1.3)
[2018-03-06 18:14] LABS: HEMATOCRIT 18.4 % (36.7-47.1); RED BLOOD CELL COUNT(AUTO) 2.04 MIL/uL (4.06-5.63)
[2018-03-06 18:16] LABS: HEMOGLOBIN 6.3 g/dL (12.5-16.3)
[2018-03-06 18:28] LABS: EOSINOPHILS % (MANUAL) 8 % (0-8); LYMPHOCYTES % (MANUAL) 24 % (20-40); MONOCYTES % (MANUAL) 10 % (2-10); NEUTROPHILS % (MANUAL) 58 % (42-75)
[2018-03-06] MEDS ORDERED: LABETALOL HCL 100 MG/20 ML VIAL IV ONE (19:30)
[2018-03-06] MEDS ORDERED: hydrALAZINE HCL 20 MG/1 ML VIAL ONE (19:41)
[2018-03-06] MEDS ORDERED: hydrALAZINE HCL 20 MG/1 ML VIAL IV ONE (19:45)
[2018-03-06] MEDS ORDERED: CALCIUM CARBONATE 500 MG TAB.CHEW PO PRN (20:00)
[2018-03-06] MEDS ORDERED: Z GUARD REMEDY PASTE 57 GM TUBE TOP PRN (20:00)
[2018-03-06] MEDS ORDERED: ACETAMINOPHEN 325 MG TABLET PO PRN (20:00)
[2018-03-06] MEDS ORDERED: MAGNESIUM HYDROXIDE 30 ML LIQUID UDC PO PRN (20:00)
[2018-03-06] MEDS ORDERED: HYDROMORPHONE 1 MG/1 ML DISP.SYRIN IV ONE (20:00)
[2018-03-06] MEDS ORDERED: HYDROMORPHONE 2 MG/1 ML DISP.SYRIN ONE (20:00)
[2018-03-06 20:45] VITALS: BP 211/114
[2018-03-06] MEDS: ONDANSETRON 4 MG/2 ML VIAL IV PRN (23:33)
[2018-03-06 23:49] VITALS: BP 175/100
[2018-03-07] MEDS: HYDROCODONE/APAP 5-325MG TABLET PO PRN (00:35)
[2018-03-07] MEDS: CLONIDINE HCL 0.2 MG TABLET PO PRN (00:36)
[2018-03-07 00:42] LABS: HEMATOCRIT 20.1 % (36.7-47.1)
[2018-03-07 00:45] LABS: HEMOGLOBIN 6.8 g/dL (12.5-16.3)
[2018-03-07] MEDS: PANTOPRAZOLE SODIUM 40 MG TABLET.DR PO SCH (06:46)
[2018-03-07] MEDS: METOCLOPRAMIDE HCL 10 MG TABLET PO SCH ×3 (06:47→16:46)
[2018-03-07] MEDS ORDERED: PANTOPRAZOLE SODIUM 40 MG TABLET.DR PO SCH (07:00)
[2018-03-07] MEDS: LABETALOL HCL 200 MG TABLET PO SCH ×3 (07:40→22:59)
[2018-03-07] MEDS: CALCIUM ACETATE 667 MG CAPSULE PO SCH ×3 (08:00→17:13)
[2018-03-07] MEDS: AMLODIPINE 5 MG TABLET PO SCH ×3 (09:00→23:00)
[2018-03-07] MEDS ORDERED: Medication Not On Formulary EA (Benazepril Hcl 40 MG) PO SCH (09:00)
[2018-03-07] MEDS: PAROXETINE HCL 10 MG TABLET PO SCH (09:00)
[2018-03-07] MEDS: FOLIC ACID/VITAMIN B COMP W-C TABLET PO SCH (09:00)
[2018-03-07] MEDS: BENAZEPRIL HCL 20 MG TABLET PO SCH (09:47)
[2018-03-07 11:54] VITALS: BP 165/96
[2018-03-07 13:09] VITALS: BP 198/111
[2018-03-07 13:25] LABS: EOSINOPHILS # (AUTO) 0.5 K/uL (0.0-0.7); MEAN CORPUSCULAR HEMOGLOBIN 30.4 uug (23.8-33.4); MONOCYTES # (AUTO) 0.7 K/uL (2.0-10.0); WHITE BLOOD COUNT (AUTO) 5.6 K/uL (3.6-10.2)
[2018-03-07 13:30] LABS: BASOPHILS % (AUTO) 0.4 % (0.0-2.0); EOSINOPHILS % (AUTO) 8.7 % (0.0-7.0); LYMPHOCYTES % (AUTO) 18.4 % (20.5-51.5); MEAN CORPUSCULAR HGB CONC 34 g/dL (32.5-36.3); NEUTROPHILS # (AUTO) 3.3 K/uL (1.8-8.9); NEUTROPHILS % (AUTO) 59.5 % (38.5-71.5); PLATELET COUNT (AUTO) 185 K/uL (152-348)
[2018-03-07 13:31] LABS: POTASSIUM 5.9 mmol/L (3.5-5.1); RED BLOOD CELL COUNT(AUTO) 2.01 MIL/uL (4.06-5.63)
[2018-03-07 13:33] LABS: CREATININE 19.5 mg/dL (0.6-1.3); HEMOGLOBIN 6.1 g/dL (12.5-16.3)
[2018-03-07 13:34] LABS: HEMATOCRIT 18.1 % (36.7-47.1)
[2018-03-07 13:35] VITALS: BP 184/110
[2018-03-07 13:50] VITALS: BP 170/109
[2018-03-07 13:53] LABS: BAND % (MANUAL) 1 % (0-10); EOSINOPHILS % (MANUAL) 13 % (0-8); LYMPHOCYTES % (MANUAL) 16 % (20-40); MONOCYTES % (MANUAL) 8 % (2-10); NEUTROPHILS % (MANUAL) 62 % (42-75)
[2018-03-07 15:14] VITALS: BP 169/107
[2018-03-07 19:00] VITALS: BP 171/94
[2018-03-08] VITALS: BP 151/82
[2018-03-08] MEDS: ONDANSETRON 4 MG/2 ML VIAL IV PRN ×2 (00:54→15:39)
[2018-03-08] MEDS: HYDROCODONE/APAP 5-325MG TABLET PO PRN ×2 (00:54→09:53)
[2018-03-08] MEDS ORDERED: LORAZEPAM 0.5 MG TABLET PO PRN (02:30)
[2018-03-08 04:00] VITALS: BP 155/94
[2018-03-08 07:12] LABS: BASOPHILS % (AUTO) 0.2 % (0.0-2.0); EOSINOPHILS # (AUTO) 0.4 K/uL (0.0-0.7); EOSINOPHILS % (AUTO) 7.1 % (0.0-7.0); HEMATOCRIT 21.3 % (36.7-47.1); LYMPHOCYTES # (AUTO) 1.2 K/uL (20.0-40.0); LYMPHOCYTES % (AUTO) 22.6 % (20.5-51.5); MEAN CORPUSCULAR HEMOGLOBIN 30.7 uug (23.8-33.4); MEAN CORPUSCULAR HGB CONC 34 g/dL (32.5-36.3); MEAN CORPUSCULAR VOLUME 89.1 fL (73.0-96.2); MONOCYTES # (AUTO) 0.7 K/uL (2.0-10.0); MONOCYTES % (AUTO) 12.5 % (0.0-11.0); NEUTROPHILS % (AUTO) 57.6 % (38.5-71.5); PLATELET COUNT (AUTO) 179 K/uL (152-348); WHITE BLOOD COUNT (AUTO) 5.3 K/uL (3.6-10.2)
[2018-03-08 07:15] LABS: RED BLOOD CELL COUNT(AUTO) 2.39 MIL/uL (4.06-5.63)
[2018-03-08 07:19] LABS: HEMOGLOBIN 7.3 g/dL (12.5-16.3)
[2018-03-08] MEDS: LABETALOL HCL 200 MG TABLET PO SCH ×2 (07:30→13:02)
[2018-03-08] MEDS: METOCLOPRAMIDE HCL 10 MG TABLET PO SCH ×4 (07:30→16:17)
[2018-03-08 07:51] LABS: MAGNESIUM 2.2 mg/dL (1.8-2.4); PHOSPHOROUS 5.5 mg/dL (2.5-4.9)
[2018-03-08 07:52] LABS: CREATININE 10.9 mg/dL (0.6-1.3)
[2018-03-08] MEDS: CALCIUM ACETATE 667 MG CAPSULE PO SCH ×2 (08:00→12:00)
[2018-03-08] MEDS: PAROXETINE HCL 10 MG TABLET PO SCH (09:00)
[2018-03-08 09:33] VITALS: BP 168/101
[2018-03-08] MEDS: FOLIC ACID/VITAMIN B COMP W-C TABLET PO SCH (09:52)
[2018-03-08] MEDS: AMLODIPINE 5 MG TABLET PO SCH (09:53)
[2018-03-08] MEDS: BENAZEPRIL HCL 20 MG TABLET PO SCH (09:54)
[2018-03-08] MEDS: PANTOPRAZOLE SODIUM 40 MG TABLET.DR PO SCH (09:54)
[2018-03-08 11:04] VITALS: BP 159/85
[2018-03-08 14:35] LABS: MAGNESIUM 2.3 mg/dL (1.8-2.4); PHOSPHOROUS 4.5 mg/dL (2.5-4.9); POTASSIUM 4.4 mmol/L (3.5-5.1)
[2018-03-08 14:47] LABS: CREATININE 7.9 mg/dL (0.6-1.3)
[2018-03-08 15:17] VITALS: BP 147/89
[2018-03-08] MEDS ORDERED: CLON0.2T12 PO (17:01)
[2018-03-08 17:30] VITALS: BP 170/95
[2018-03-08] MEDS: CLONIDINE HCL 0.2 MG TABLET PO PRN (17:30)
== END 2018-03-08 18:14 | disposition short-term general hospital (02) | DRG 470 ==
LOC: ER 16:39 → TELE 20:23 → MED 03-08 10:40
PROVIDERS: ADMIT Family Medicine; ATTEND Hospitalist
PROC: 30243N1 Transfusion of Nonautologous Red Blood Cells into Central Vein, Percutaneous Approach (ICD-10-PCS; principal; 2018-03-07)
PROC: 5A1D70Z Performance of Urinary Filtration, Intermittent, Less than 6 Hours Per Day (ICD-10-PCS; principal; 2018-03-07)
DX: I13.11 Hypertensive heart and chronic kidney disease without heart failure, with stage 5 chronic kidney disease, or end stage renal disease (principal); C90.00 Multiple myeloma not having achieved remission; N18.6 End stage renal disease; E87.1 Hypo-osmolality and hyponatremia; E87.5 Hyperkalemia; D50.0 Iron deficiency anemia secondary to blood loss (chronic); F17.210 Nicotine dependence, cigarettes, uncomplicated; D63.1 Anemia in chronic kidney disease; Z91.19 Patient's noncompliance with other medical treatment and regimen; Z91.15 Patient's noncompliance with renal dialysis; Z99.2 Dependence on renal dialysis; K21.9 Gastro-esophageal reflux disease without esophagitis; E21.3 Hyperparathyroidism, unspecified; G89.29 Other chronic pain; Z59.0 Homelessness
CPT/HCPCS: 36415; 71045; 83735; 84100; 85018; 85025; 86850; 86900; 86901; 86920; 90937; 93005; A4663; G0378; J0360; J1170; J2405; J7030; J8597; P9016-BL; P9021

== ENCOUNTER 2018-03-28 22:05 | Inpatient (IN) | payer OTHER ==
[~2018-03-28] VITALS: Ht 165.1 cm; Wt 66.3 kg
[~2018-03-28 22:05] MED LIST changes: +CLON0.2T12 PO; -PANT40TA2 PO
--- NOTE | 2018-03-28 23:01 | NUR ---
Pt ambulates to ER with c/o N/V/D since 399 today. Pt denies chest pain/shortness of breath. AV shunt on left upper extremity noted. Pt states last dialysis was 03/24/18. Pt placed on monitor. Safety precautions implemented.
[2018-03-28] MEDS ORDERED: ONDANSETRON 4 MG/2 ML VIAL IV ONE (23:15)
[2018-03-28] MEDS ORDERED: hydrALAZINE HCL 20 MG/1 ML VIAL IV ONE (23:15)
[2018-03-28] MEDS ORDERED: PANTOPRAZOLE SODIUM 40 MG VIAL IV ONE (23:15)
[2018-03-28] MEDS ORDERED: PANTOPRAZOLE SODIUM 40 MG VIAL ONE (23:38)
[2018-03-28] MEDS ORDERED: hydrALAZINE HCL 20 MG/1 ML VIAL ONE (23:38)
[2018-03-28] MEDS ORDERED: ONDANSETRON 4 MG/2 ML VIAL ONE (23:38)
[2018-03-28 23:50] LABS: BASOPHILS % (AUTO) 0.4 % (0.0-2.0); MONOCYTES # (AUTO) 0.5 K/uL (2.0-10.0)
[2018-03-28 23:56] LABS: BILIRUBIN,DIRECT 0.2 mg/dL (0.0-0.2); BILIRUBIN,TOTAL 0.7 mg/dL (0.2-1.0); CREATININE 19.6 mg/dL (0.6-1.3); TOTAL PROTEIN, SERUM 10.3 g/dL (6.4-8.2)
[2018-03-28 23:57] LABS: POTASSIUM 6.6 mmol/L (3.5-5.1)
[2018-03-29 00:04] LABS: EOSINOPHILS # (AUTO) 0.2 K/uL (0.0-0.7); EOSINOPHILS % (AUTO) 4.1 % (0.0-7.0); HEMATOCRIT 24.7 % (36.7-47.1); HEMOGLOBIN 8.2 g/dL (12.5-16.3); LYMPHOCYTES # (AUTO) 1.1 K/uL (20.0-40.0); LYMPHOCYTES % (AUTO) 18.6 % (20.5-51.5); MEAN CORPUSCULAR HEMOGLOBIN 29.7 uug (23.8-33.4); MEAN CORPUSCULAR HGB CONC 33 g/dL (32.5-36.3); MEAN CORPUSCULAR VOLUME 89.1 fL (73.0-96.2); MONOCYTES % (AUTO) 8.2 % (0.0-11.0); NEUTROPHILS # (AUTO) 4.1 K/uL (1.8-8.9); NEUTROPHILS % (AUTO) 68.7 % (38.5-71.5); PLATELET COUNT (AUTO) 158 K/uL (152-348); RED BLOOD CELL COUNT(AUTO) 2.77 MIL/uL (4.06-5.63)
[2018-03-29] MEDS ORDERED: INSULIN REGULAR, HUMAN 300 UNIT/3 ML VIAL IV ONE (00:15)
[2018-03-29] MEDS ORDERED: DEXTROSE 50% 50 ML DISP.SYRIN IV ONE (00:15)
[2018-03-29] MEDS ORDERED: CALCIUM CHLORIDE 1 GM/10 ML DISP.SYRIN IVP ONE ×2 (00:15→00:16)
[2018-03-29] MEDS ORDERED: SODIUM BICARBONATE 8.4% 50 MEQ/50 ML DISP.SYRIN IV ONE ×2 (00:15→00:17)
[2018-03-29] MEDS ORDERED: DEXTROSE 50% 50 ML DISP.SYRIN ONE (00:16)
[2018-03-29] MEDS ORDERED: INSULIN REGULAR, HUMAN 300 UNIT/3 ML VIAL ONE (00:18)
--- NOTE | 2018-03-29 00:18 | NUR ---
Called [facility] for MD to MD consult,
--- NOTE | 2018-03-29 00:32 | NUR ---
Spoke w/ AIDA @ [facility] nephrology for MD to consult w/ Dr. Camejo
--- NOTE | 2018-03-29 00:47 | NUR ---
Pt. admitted to Telemetry, under care of Dr. Carty. Diagnosis: End Stage Renal Disease, Hyperkalemia Belongs List completed. MRSA swab done.
--- NOTE | 2018-03-29 01:09 | NUR ---
Spoke with [facility] regarding pt status
--- NOTE | 2018-03-29 02:00 | NUR ---
PT ARRIVED FROM ER VIA GURNEY UNDER CARE OF DR. RICHARDSON. TELEMETRY AND DX: END STAGE RENAL DISEASE AND HYPERKALEMIA. PT BLOOD PRESSURE HIGH.WILL CALL THE DOCTOR. PT SHOWS NO ACUTE DISTRESS. IV INTACT AND PATENT.BELONGING LIST DONE. ADMISSION PROCESS AND CARE PLAN INITTIATED.SENIOR LIVING ASSESSMENT DONE. PT SCREAMING AND DISTURBING OTHER PT. CHARGE NURSE AWARE AND TALKED WITH HIM. I ALSO TALK WITH HIM. CALL LIGHT WITHIN REACH. SAFETY AND COMFORT PROVIDED. WILL CONTINUE TO MONITOR.
[2018-03-29] MEDS ORDERED: HYDROMORPHONE 1 MG/1 ML DISP.SYRIN IV PRN (02:15)
[2018-03-29] MEDS: HYDROMORPHONE 2 MG/1 ML DISP.SYRIN IV PRN ×3 (02:37→21:55)
--- NOTE | 2018-03-29 02:50 | NUR ---
CALLED DR. RICHARDSON FOR ADMITTING ORDER. NOTIFY DR REGARDING HIGH BLOOD PRESSURE OF THE PT. DR ORDERED HYDRALAZINE 10MG IV IF BP > 180 PRN , CLONIDINE 0.1MG PO Q6H IF BP>170. PT ON RENAL DIET. PT SHOWS NO SIGNS OF ACUTE DISTRESS. IV INTACT. WILL CONTINUE TO MONITOR.
[2018-03-29] MEDS ORDERED: CLONIDINE HCL 0.1 MG TABLET PO PRN (03:00)
[2018-03-29] MEDS ORDERED: hydrALAZINE HCL 20 MG/1 ML VIAL IV PRN ×2 (03:00→07:24)
--- NOTE | 2018-03-29 06:28 | NUR ---
PT GIVEN DIALUDID PRESCRIBED BY DOCTOR FOR PAIN.PT TOLERATED IT WELL. PT GIVEN HYDRALAZINE FOR HIGH BP. PT TOLERATED IT WELL. SAFETY AND COMFORT PROVIDED.ALL NEESD ARE MET. PT WITH NO ACUTE DISTRESS.WILL ENDORSE ACCORDINGLY TO INCOMING NURSE FOR CONTINUITY OF CARE.
[2018-03-29] MEDS ORDERED: CLONIDINE HCL 0.2 MG TABLET PO PRN (07:30)
[2018-03-29] MEDS ORDERED: CALCIUM CARBONATE 500 MG TAB.CHEW PO PRN (07:30)
[2018-03-29] MEDS ORDERED: LABETALOL HCL 200 MG TABLET PO SCH (09:00)
[2018-03-29] MEDS: AMLODIPINE 5 MG TABLET PO SCH ×2 (09:00→17:56)
[2018-03-29] MEDS ORDERED: CALCIUM ACETATE 667 MG CAPSULE PO SCH (09:00)
[2018-03-29] MEDS: METOCLOPRAMIDE HCL 10 MG TABLET PO SCH ×3 (09:47→16:30)
[2018-03-29] MEDS: LABETALOL HCL 200 MG TABLET PO SCH ×3 (09:47→21:35)
[2018-03-29] MEDS: PAROXETINE HCL 10 MG TABLET PO SCH (09:48)
[2018-03-29] MEDS: CALCIUM ACETATE 667 MG CAPSULE PO SCH ×3 (09:48→17:58)
[2018-03-29] MEDS: FOLIC ACID/VITAMIN B COMP W-C TABLET PO SCH (09:48)
[2018-03-29] MEDS: BENAZEPRIL HCL 20 MG TABLET PO SCH (11:44)
[2018-03-29 11:50] VITALS: BP 233/133
[2018-03-29 16:00] VITALS: BP 191/108
--- NOTE | 2018-03-29 18:16 | NUR ---
patient has been resting in bed through out the shift. Patient received 1 dose of dilaudid in the begining of the shift and has not stated any pain ever since. Patient blood pressure continue to run high but had been maintained with blood pressure medications as prescribed. Patient has refused his medications of calcium phosphate and Reglan even after education of risks and factors. Patient is able to verbalize needs and needs have been addressed and met. Patient vomited x1 today but is responding to Reglan, antiemtic, medication well. Will continue to monitor the patient closely and will endorse plan of care to printer's assistant nurse.
[2018-03-29 19:56] VITALS: BP 187/107
--- NOTE | 2018-03-29 20:00 | NUR ---
RECEIVED PATIENT ASLEEP IN BED. EASILY AROUSABLE. A/O X4. BP ELEVATED 187/100. ALL OTHER VS WNL. PATIENT REFUSED PRN BLOOD PRESSURE MED AT THIS TIME. WILL CONTINUE TO MONITOR AND ASSESS.
--- NOTE | 2018-03-29 21:35 | NUR ---
ROUTINE BP MEDS GIVEN.
[2018-03-30] MEDS: HYDROMORPHONE 2 MG/1 ML DISP.SYRIN IV PRN (03:05)
[2018-03-30 04:38] VITALS: BP 166/100
[2018-03-30] MEDS: LABETALOL HCL 200 MG TABLET PO SCH ×3 (06:00→21:48)
[2018-03-30] MEDS: PANTOPRAZOLE SODIUM 40 MG TABLET.DR PO SCH (06:03)
--- NOTE | 2018-03-30 06:03 | NUR ---
PATIENTS BLOOD PRESSURE RECHECKED. 177/101. PATIENT HAS ROUTINE BP MEDS AT THIS TIME. PATIENT REFUSED. PROFILING MACHINE OPERATOR NOTIFIED. PATIENT EDUCATED ON THE IMPORTANCE AND RISKS OF TAKING BP MEDS. VERBALIZED UNDERSTANDING BUT PATIENT STILL REFUSED. WILL CONTINUE TO MONITOR.
[2018-03-30] MEDS: CALCIUM ACETATE 667 MG CAPSULE PO SCH ×3 (10:00→17:45)
[2018-03-30] MEDS: FOLIC ACID/VITAMIN B COMP W-C TABLET PO SCH (10:01)
[2018-03-30] MEDS: METOCLOPRAMIDE HCL 10 MG TABLET PO SCH ×3 (10:01→17:07)
[2018-03-30] MEDS: PAROXETINE HCL 10 MG TABLET PO SCH (10:01)
[2018-03-30] MEDS: BENAZEPRIL HCL 20 MG TABLET PO SCH (10:01)
[2018-03-30] MEDS: AMLODIPINE 5 MG TABLET PO SCH ×2 (10:01→17:00)
[2018-03-30 11:37] VITALS: BP 170/96
[2018-03-30 15:36] VITALS: BP 176/96
[2018-03-30 16:36] LABS: BASOPHILS % (AUTO) 0.3 % (0.0-2.0); EOSINOPHILS # (AUTO) 0.2 K/uL (0.0-0.7); EOSINOPHILS % (AUTO) 3.4 % (0.0-7.0); HEMATOCRIT 21.8 % (36.7-47.1); LYMPHOCYTES # (AUTO) 0.8 K/uL (20.0-40.0); LYMPHOCYTES % (AUTO) 16.4 % (20.5-51.5); MEAN CORPUSCULAR HEMOGLOBIN 29.6 uug (23.8-33.4); MEAN CORPUSCULAR HGB CONC 33 g/dL (32.5-36.3); MEAN CORPUSCULAR VOLUME 88.7 fL (73.0-96.2); MONOCYTES # (AUTO) 0.3 K/uL (2.0-10.0); MONOCYTES % (AUTO) 6.9 % (0.0-11.0); NEUTROPHILS # (AUTO) 3.5 K/uL (1.8-8.9); PLATELET COUNT (AUTO) 182 K/uL (152-348); WHITE BLOOD COUNT (AUTO) 4.8 K/uL (3.6-10.2)
[2018-03-30 16:43] LABS: RED BLOOD CELL COUNT(AUTO) 2.46 MIL/uL (4.06-5.63)
[2018-03-30 16:44] LABS: HEMOGLOBIN 7.3 g/dL (12.5-16.3)
[2018-03-30 16:58] LABS: BILIRUBIN,TOTAL 0.8 mg/dL (0.2-1.0); PHOSPHOROUS 5.7 mg/dL (2.5-4.9); TOTAL PROTEIN, SERUM 9.8 g/dL (6.4-8.2)
--- NOTE | 2018-03-30 18:30 | NUR ---
PATIENT HAS BEEN RESTING IN BED THROUGH OUT THE SHIFT. PATIENT CONTINUE TO BE NON COMPLIANT WITH PARTS OF MEDICAL TREATMENT AND REGIMEN. PATIENT HAS NO EPISODES OF VOMITING. PATIENT DENIES ANY RESPIRATORY DISTRESS OR DISCOMFORT AT THIS TIME. WILL CONTINUE TO MONITOR CLOSELY AND ENDORSE PLAN OF CARE TO SACK FILLER.
[2018-03-30 19:00] VITALS: BP 152/92
--- NOTE | 2018-03-30 19:27 | NUR ---
RECEIVED PT AWAKE, ALERT, ORIENTEDX4. PT SHOWS NO SIGNS OF DISTRESS.PT REQUESTING FOR SLEEPING AND PAIN MEDICATION.IV INTACT AND INFUSING WELL. SAFETY AND COMFORT PROVIDED. WILL CONTINUE TO MONITOR.
[2018-03-30] MEDS ORDERED: ZOLPIDEM 5 MG TABLET PO PRN ×2 (20:00→20:15)
[2018-03-30] MEDS ORDERED: HYDROMORPHONE 1 MG/1 ML DISP.SYRIN IV PRN (20:15)
--- NOTE | 2018-03-30 21:13 | NUR ---
1948H CALLED [employer] FOR PT REQUESTING FOR SLEEPING AND PAIN MEDICATION. NOTIFY [employer] REGARDING PT HEMOGLOBIN OF 7.3. DR RAMESH ORDERED AMBIEN 5MG PO HSPRN. ORDERED NO PAIN MEDICATION.I DISCTONIUE THE PAIN MEDICATION IN EMAR. DAYSHIFT NURSE ENDORSE ALSO THAT NO PAIN MEDICATION WILL BE GIVEN. FELIX RN ENDORSED THAT DR ALVARES DC THE DILAUDID.ACCIDENTALLY PUT THE ORDER OF AMBIEN AND D/C DILAUDID IN ONE OF THE NURSE NAME BUT I CALLED PHARMACIST MINI TO HELP AND EDIT IT. IT WAS FIX ALREADY. CHARGE NURSE AWARE.PT STABLE AND WILL CONTINUE TO MONITOR.
[2018-03-31 04:00] VITALS: BP 178/104
[2018-03-31 06:15] VITALS: BP 178/104
[2018-03-31] MEDS: LABETALOL HCL 200 MG TABLET PO SCH (06:15)
[2018-03-31] MEDS: PANTOPRAZOLE SODIUM 40 MG TABLET.DR PO SCH (06:16)
[2018-03-31] MEDS: METOCLOPRAMIDE HCL 10 MG TABLET PO SCH (06:31)
--- NOTE | 2018-03-31 06:42 | NUR ---
PT SLEPT THROUGHOUT THE SHIFT. PT SHOWS NO SIGNS OF DISTRESS.PRESCRIBED MEDICATION GIVEN AND PT TOLERATED IT WELL. PT GIVEN CATAPRESS FOR 178/104 BP AND HEART RATE 86. PT WITH NO ACUTE DISTRESS. SAFETY AND COMFORT PROVIDED. ALL NEEDS ARE MET. WILL ENDORSE ACCORDINGLY TO INCOMING NURSE FOR CONTINUITY OF CARE.
--- NOTE | 2018-03-31 07:20 | NUR ---
RECEIVED PATIENT ASLEEP IN BED. EASILY TO AROUSE. ALERT AND ORIENTED. IN NO ACUTE DISTRESS. NO COMPLAINTS OF PAIN OR SOB. BED IS LOW AND LOCKED, CALL LIGHT WITHIN REACH. RECEIVED REPORT THAT PATIENT WILL BE DISCHARGED TODAY, WILL FOLLOW UP. WILL CONTINUE TO MONITOR.
[2018-03-31] MEDS: CALCIUM ACETATE 667 MG CAPSULE PO SCH (08:00)
[2018-03-31] MEDS: BENAZEPRIL HCL 20 MG TABLET PO SCH (08:29)
[2018-03-31] MEDS: AMLODIPINE 5 MG TABLET PO SCH (08:29)
[2018-03-31] MEDS: FOLIC ACID/VITAMIN B COMP W-C TABLET PO SCH (08:29)
[2018-03-31] MEDS: PAROXETINE HCL 10 MG TABLET PO SCH (08:30)
--- NOTE | 2018-03-31 10:30 | NUR ---
DISCHARGE NOTE PATIENT WAS DISCHARGED IN STABLE CONDITION WITH ALL BELONGINGS GIVEN. DISCHARGE INSTRUCTIONS AND MEDICATION LIST PROVIDED. EDUCATIONAL PAPERS EXPLAINED AND PATIENT VERBALIZED UNDERSTANDING.
== END 2018-03-31 10:38 | disposition home or self-care (01) | DRG 241 ==
LOC: ER 22:07 → TELE 03-29 01:29 → MED 03-29 11:24
PROVIDERS: ADMIT Internal Medicine; ATTEND Internal Medicine
PROC: 5A1D70Z Performance of Urinary Filtration, Intermittent, Less than 6 Hours Per Day (ICD-10-PCS; principal; 2018-03-29)
DX: K29.70 Gastritis, unspecified, without bleeding (principal); C90.00 Multiple myeloma not having achieved remission; I13.11 Hypertensive heart and chronic kidney disease without heart failure, with stage 5 chronic kidney disease, or end stage renal disease; K86.2 Cyst of pancreas; E87.5 Hyperkalemia; N25.81 Secondary hyperparathyroidism of renal origin; G89.29 Other chronic pain; N18.6 End stage renal disease; Z99.2 Dependence on renal dialysis; Z91.15 Patient's noncompliance with renal dialysis; N28.1 Cyst of kidney, acquired; Z59.0 Homelessness; F17.200 Nicotine dependence, unspecified, uncomplicated; Z91.19 Patient's noncompliance with other medical treatment and regimen; D64.9 Anemia, unspecified
CPT/HCPCS: 36415; 70030-TC; 71045; 83690; 83735; 84100; 85025; 85730; 90937; 93005; A4663; C9113; G0378; J0360; J1170; J1815; J2405; J3490; J8597

== ENCOUNTER 2018-04-03 06:54 | Inpatient (IN) | payer OTHER ==
[~2018-04-03] VITALS: Ht 170.2 cm; Wt 65.8 kg
[2018-04-03] MEDS ORDERED: ONDANSETRON 4 MG/2 ML VIAL IV ONE (07:15)
[2018-04-03] MEDS ORDERED: IV NORMAL SALINE 500 ML BAG IV ONE (07:15)
[2018-04-03] MEDS ORDERED: HYDROMORPHONE 1 MG/1 ML DISP.SYRIN IV ONE ×2 (07:15→11:15)
[2018-04-03] MEDS ORDERED: HYDROMORPHONE 2 MG/1 ML DISP.SYRIN ONE ×2 (07:22→11:16)
[2018-04-03] MEDS ORDERED: ONDANSETRON 4 MG/2 ML VIAL ONE ×2 (07:22→11:16)
[2018-04-03 07:41] LABS: BASOPHILS % (AUTO) 0.6 % (0.0-2.0); EOSINOPHILS # (AUTO) 0.3 K/uL (0.0-0.7); EOSINOPHILS % (AUTO) 4.5 % (0.0-7.0); LYMPHOCYTES # (AUTO) 1.2 K/uL (20.0-40.0); MEAN CORPUSCULAR HGB CONC 35 g/dL (32.5-36.3); MEAN CORPUSCULAR VOLUME 88.6 fL (73.0-96.2); MONOCYTES # (AUTO) 0.4 K/uL (2.0-10.0); MONOCYTES % (AUTO) 6.2 % (0.0-11.0); NEUTROPHILS # (AUTO) 4.1 K/uL (1.8-8.9); NEUTROPHILS % (AUTO) 68.7 % (38.5-71.5); PLATELET COUNT (AUTO) 176 K/uL (152-348)
[2018-04-03 07:48] LABS: RED BLOOD CELL COUNT(AUTO) 2.09 MIL/uL (4.06-5.63)
[2018-04-03 07:50] LABS: HEMATOCRIT 18.5 % (36.7-47.1); HEMOGLOBIN 6.5 g/dL (12.5-16.3); POTASSIUM 5.6 mmol/L (3.5-5.1)
[2018-04-03 07:53] LABS: CREATININE 18.7 mg/dL (0.6-1.3)
[2018-04-03 07:55] LABS: BILIRUBIN,DIRECT 0.2 mg/dL (0.0-0.2); BILIRUBIN,TOTAL 0.7 mg/dL (0.2-1.0); TOTAL PROTEIN, SERUM 9.1 g/dL (6.4-8.2)
--- NOTE | 2018-04-03 09:30 | NUR ---
Patient is resting comfortably on gurney with eyes closed. PATIENT IS PAIN FREE AT THIS TIME.
--- NOTE | 2018-04-03 11:00 | NUR ---
Consent signed by patient agreeing to administration of blood. Patient informed of potential complications associated with blood transfusion. Information on unit of blood checked against patient wristband at bedside by two nurses. All information matches. Patient made aware of need to notify nurse at once if begins to experience itching, shortness of breath, flushing, feeling of impending doom, or other symptoms not previously present.
[2018-04-03] MEDS ORDERED: ONDANSETRON IV *ER 4 MG/2 ML VIAL IV ONE (11:15)
--- NOTE | 2018-04-03 11:25 | NUR ---
Intermittent dry heaving noted, MD is awre.
--- NOTE | 2018-04-03 12:06 | NUR ---
1st unit is still infusing, endorsed to telemetry nurse Nicol.
--- NOTE | 2018-04-03 12:10 | NUR ---
PATIENT ADMITTED FROM ER TO ROOM [address] ALVARES FOR ADMISSION ORDERS. MD AWARE PATIENT IN UNIT. NO ACUTE DISTRESS NOTED. BT STILL INFUSING WELL TOLERATED. PATIENT STILL EXPERIENCING N/V. NO COMPLAINTS OF PAIN AT THIS TIME. WILL CONTINUE TO MONITOR CLOSELY.
[2018-04-03 12:15] VITALS: BP 191/118
[2018-04-03 15:50] VITALS: BP 197/121
--- NOTE | 2018-04-03 16:56 | NUR ---
PATIENT REFUSED MRSA SWAB
[2018-04-03] MEDS: PAROXETINE HCL 10 MG TABLET PO SCH (17:00)
[2018-04-03] MEDS: AMLODIPINE 5 MG TABLET PO SCH (17:00)
[2018-04-03] MEDS: CALCIUM ACETATE 667 MG CAPSULE PO SCH (17:00)
[2018-04-03] MEDS: FOLIC ACID/VITAMIN B COMP W-C TABLET PO SCH (17:00)
[2018-04-03] MEDS ORDERED: METOCLOPRAMIDE HCL 10 MG TABLET PO SCH (17:00)
[2018-04-03] MEDS ORDERED: CLONIDINE HCL 0.2 MG TABLET PO PRN (17:00)
[2018-04-03] MEDS ORDERED: CALCIUM CARBONATE 500 MG TAB.CHEW PO PRN (17:00)
[2018-04-03] MEDS ORDERED: ACETAMINOPHEN 325 MG TABLET PO PRN (17:15)
[2018-04-03] MEDS ORDERED: MAGNESIUM HYDROXIDE 30 ML LIQUID UDC PO PRN (17:15)
[2018-04-03] MEDS ORDERED: Z GUARD REMEDY PASTE 57 GM TUBE TOP PRN (17:15)
[2018-04-03] MEDS: METOCLOPRAMIDE HCL 5 MG TABLET PO SCH (17:16)
--- NOTE | 2018-04-03 19:54 | NUR ---
Received patient ongoing hemodialysis. Patient alert and oriented x 4, not in any form of distress. Noted with IV access at right external jugular vein, intact. Noted reported episode of nausea and vomiting this morning, will monitor for recurrence. bed in low position, side rails up x 2, call light within reach. Will continue to monitor.
--- NOTE | 2018-04-03 20:00 | NUR ---
Hemodialysis just finished, total of 3liters was removed. Patient complaining of pain, offered Orford tablet however patient declined.
[2018-04-03 20:51] VITALS: BP 205/115
--- NOTE | 2018-04-03 21:05 | NUR ---
Patient's blood pressure was 205/115, gave him his due blood pressure medication which was the Lotensin, patient took the medication.
[2018-04-03] MEDS: LABETALOL HCL 200 MG TABLET PO SCH (21:23)
--- NOTE | 2018-04-03 23:00 | NUR ---
Rechecked blood pressure = 180/99, informed patient that his blood pressure is still elevated and that I would need to give him catapres. Patient strongly declined to take the medication and stated that he just needs to rest and to not disturb him. Explained to patient the need for the medication and explained consequences of not taking it and still patient declined to take the medication.
[2018-04-03] MEDS: HYDROCODONE/APAP 5-325MG TABLET PO PRN (23:56)
--- NOTE | 2018-04-04 00:05 | NUR ---
Noted patient reported that he had some rectal bleed, noted little amount of blood on his bedsheet. Attempted to assess area however patient declined and stated that he wiped the area and that there is no active bleeding. Bedsheet replaced and ensured patient safety and comfort in bed. Patient instructed to avoid straining and to inform me for any recurrence of bleeding. Noted s/p transfusion of 1 unit of packed red blood cells this morning and that blood work to recheck Hemoglobin and hematocrit is ordered for 0600 today. Patient requesting for pain medication, prn pain medication given. However patient still decline blood pressure medication. Will continue to monitor.
--- NOTE | 2018-04-04 00:32 | NUR ---
Patient declined blood pressure check despite explaining that we need to check it since it was elevated before. Patient is upset that we keep on checking his blood pressure.
[2018-04-04] MEDS: LABETALOL HCL 200 MG TABLET PO SCH ×3 (05:08→22:00)
[2018-04-04 05:29] VITALS: BP 187/103
[2018-04-04] MEDS: ONDANSETRON 4 MG/2 ML VIAL IV PRN ×2 (05:40→19:56)
[2018-04-04] MEDS: PANTOPRAZOLE SODIUM 40 MG TABLET.DR PO SCH (06:12)
[2018-04-04 06:35] LABS: BASOPHILS % (AUTO) 0.4 % (0.0-2.0); EOSINOPHILS # (AUTO) 0.1 K/uL (0.0-0.7); MONOCYTES # (AUTO) 0.3 K/uL (2.0-10.0); NEUTROPHILS # (AUTO) 3.3 K/uL (1.8-8.9); WHITE BLOOD COUNT (AUTO) 4.8 K/uL (3.6-10.2)
[2018-04-04 06:38] LABS: EOSINOPHILS % (AUTO) 2.7 % (0.0-7.0); HEMATOCRIT 21.1 % (36.7-47.1); LYMPHOCYTES % (AUTO) 20.8 % (20.5-51.5); MEAN CORPUSCULAR HGB CONC 35 g/dL (32.5-36.3); MONOCYTES % (AUTO) 7.3 % (0.0-11.0); NEUTROPHILS % (AUTO) 68.8 % (38.5-71.5); PLATELET COUNT (AUTO) 173 K/uL (152-348)
[2018-04-04 06:44] LABS: HEMOGLOBIN 7.3 g/dL (12.5-16.3); RED BLOOD CELL COUNT(AUTO) 2.43 MIL/uL (4.06-5.63)
[2018-04-04] MEDS: METOCLOPRAMIDE HCL 5 MG TABLET PO SCH ×3 (06:47→16:03)
--- NOTE | 2018-04-04 06:50 | NUR ---
Patient slept intermittently.IV access at right external jugular vein, intact. No recurrence of rectal bleed. Complained of nausea, prn medication given with relief. Patient complaining of headache but refuses to take norco.
[2018-04-04 07:15] LABS: PHOSPHOROUS 6.3 mg/dL (2.5-4.9); POTASSIUM 4.8 mmol/L (3.5-5.1)
[2018-04-04 07:16] LABS: CREATININE 14.2 mg/dL (0.6-1.3)
--- NOTE | 2018-04-04 07:45 | NUR ---
Report from cage shift manager rn. and patient received undergoing HD procedure. Patient sleeping.
[2018-04-04 08:00] VITALS: BP 184/104
[2018-04-04] MEDS: CALCIUM ACETATE 667 MG CAPSULE PO SCH ×3 (08:00→16:36)
--- NOTE | 2018-04-04 09:30 | NUR ---
Patient requesting to talk to attending Physician Dr. Valencia regarding his pain medication management. . present in the unit and spoke with patient.
[2018-04-04] MEDS: PAROXETINE HCL 10 MG TABLET PO SCH (09:40)
[2018-04-04] MEDS: FOLIC ACID/VITAMIN B COMP W-C TABLET PO SCH (09:40)
[2018-04-04] MEDS: AMLODIPINE 5 MG TABLET PO SCH ×2 (09:41→16:36)
[2018-04-04] MEDS: BENAZEPRIL HCL 20 MG TABLET PO SCH (09:42)
--- NOTE | 2018-04-04 10:00 | NUR ---
Patient refusing to take his pain medications (norco) despite c/of terrible neck pain. Dr. villanueva.
[2018-04-04 10:50] VITALS: BP 176/103
[2018-04-04 15:11] VITALS: BP 179/108
--- NOTE | 2018-04-04 16:36 | NUR ---
Patient refusing pm medications stating "I'm not taking any medications until Dr. Valencia changes my pain medications".
[2018-04-04] MEDS: HYDROCODONE/APAP 5-325MG TABLET PO PRN (19:54)
[2018-04-04 20:02] VITALS: BP 169/98
[2018-04-05 00:36] VITALS: BP 182/112
[2018-04-05] MEDS: ONDANSETRON 4 MG/2 ML VIAL IV PRN ×2 (04:41→12:23)
[2018-04-05 05:19] VITALS: BP 166/105
[2018-04-05] MEDS: LABETALOL HCL 200 MG TABLET PO SCH ×3 (06:00→22:07)
[2018-04-05] MEDS: PANTOPRAZOLE SODIUM 40 MG TABLET.DR PO SCH (06:30)
--- NOTE | 2018-04-05 07:00 | NUR ---
PATIENT A/O 3, NO RESP DISTRESS, IV ON JUGULAR R INTACT, ORDERS WILL BE CARED OUT, CARE PLAN DISCUSSED CARED OUT THIS SHIFT SAFETY REINFORCED
[2018-04-05] MEDS: FOLIC ACID/VITAMIN B COMP W-C TABLET PO SCH (08:45)
[2018-04-05] MEDS: METOCLOPRAMIDE HCL 5 MG TABLET PO SCH ×3 (08:45→17:59)
[2018-04-05] MEDS: PAROXETINE HCL 10 MG TABLET PO SCH (08:45)
[2018-04-05] MEDS: BENAZEPRIL HCL 20 MG TABLET PO SCH (08:46)
[2018-04-05] MEDS: CALCIUM ACETATE 667 MG CAPSULE PO SCH ×3 (08:47→17:59)
[2018-04-05] MEDS: AMLODIPINE 5 MG TABLET PO SCH ×2 (08:47→18:00)
[2018-04-05 11:01] VITALS: BP 165/98
--- NOTE | 2018-04-05 11:18 | NUR ---
PATIENT REFUSED HAVING HEART MONITOR STATED : " I DONT HAVE HEART PROBLEM AND I DONT NEED IT "
[2018-04-05] MEDS: HYDROCODONE/APAP 5-325MG TABLET PO PRN ×2 (12:13→23:47)
--- NOTE | 2018-04-05 14:50 | NUR ---
PATIENT REFUSED HAVING BP MEDICATION LABETALOL STATED : " I DONT NEED IT, I WANT TO SLEEP ". 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
[2018-04-05 14:58] VITALS: BP 158/92
[2018-04-05] MEDS ORDERED: EPOETIN ALFA 10,000 UNITS/ML VIAL SQ ONE (17:00)
--- NOTE | 2018-04-05 19:01 | NUR ---
PATIENT A/O 3, NO RESP DISTRESS, IV ON JUGULAR R SITE FAILED, WE CANT START NEW LINE. PATIENT WAS MOSTLY COMPLAINT WITH TREATMENT , ORDERS CARED OUT THIS SHIFT SAFETY REINFORCED
[2018-04-05 20:06] VITALS: BP 144/92
[2018-04-06] MEDS: ZOLPIDEM 5 MG TABLET PO PRN ×2 (03:16→23:44)
--- NOTE | 2018-04-06 05:21 | NUR ---
PATIENT REFUSED AM VITALS.
[2018-04-06] MEDS: LABETALOL HCL 200 MG TABLET PO SCH ×3 (06:00→23:45)
[2018-04-06] MEDS: PANTOPRAZOLE SODIUM 40 MG TABLET.DR PO SCH (06:09)
--- NOTE | 2018-04-06 07:00 | NUR ---
PATIENT A/O 3, NO RESP DISTRESS, DIALYSES SHUNT ON LEFT ARM, ORDERS WILL BE CARED OUT, CARE PLAN DISCUSSED CARED OUT THIS SHIFT SAFETY REINFORCED
--- NOTE | 2018-04-06 07:01 | NUR ---
PATIENT ON TELE SR. Addendum: 04/06/18 at 0719 by CLAU PELLETIER LVN CLARIFICATION- ERROR. NOT ON TELE.
[2018-04-06] MEDS: PAROXETINE HCL 10 MG TABLET PO SCH (09:11)
[2018-04-06] MEDS: CALCIUM ACETATE 667 MG CAPSULE PO SCH ×3 (09:11→17:43)
[2018-04-06] MEDS: METOCLOPRAMIDE HCL 5 MG TABLET PO SCH ×3 (09:11→17:44)
[2018-04-06] MEDS: FOLIC ACID/VITAMIN B COMP W-C TABLET PO SCH (09:11)
[2018-04-06] MEDS: BENAZEPRIL HCL 20 MG TABLET PO SCH (09:12)
[2018-04-06] MEDS: AMLODIPINE 5 MG TABLET PO SCH ×2 (09:12→17:46)
[2018-04-06 12:00] VITALS: BP 142/85
--- NOTE | 2018-04-06 12:52 | NUR ---
PATIENT REFUSED HIS 11.30 AND 1300 MEDS, STATED " I DONT WANT MY MEDS "
[2018-04-06 14:26] VITALS: BP 170/118
--- NOTE | 2018-04-06 17:55 | NUR ---
CALLED ABOUT DIALYSES, THEY SAID THAT NURSE WILL COME TO DO IT IN FEW HOURS
--- NOTE | 2018-04-06 18:06 | NUR ---
END OF SHIFT PATIENT A/O 3, NO DISTRESS, NEEDS MET, REFUSED MEDICATIONS ONES, BP ON HIGH LEVELS SAFETY REINFORCED
[2018-04-06 20:00] VITALS: BP 183/113
[2018-04-06 20:40] LABS: BASOPHILS % (AUTO) 0.7 % (0.0-2.0); EOSINOPHILS # (AUTO) 0.2 K/uL (0.0-0.7); EOSINOPHILS % (AUTO) 4.7 % (0.0-7.0); HEMATOCRIT 23.8 % (36.7-47.1); HEMOGLOBIN 8.1 g/dL (12.5-16.3); LYMPHOCYTES # (AUTO) 0.9 K/uL (20.0-40.0); LYMPHOCYTES % (AUTO) 20.8 % (20.5-51.5); MEAN CORPUSCULAR HEMOGLOBIN 29.5 uug (23.8-33.4); MEAN CORPUSCULAR HGB CONC 34 g/dL (32.5-36.3); MEAN CORPUSCULAR VOLUME 86.8 fL (73.0-96.2); MONOCYTES # (AUTO) 0.5 K/uL (2.0-10.0); MONOCYTES % (AUTO) 10.3 % (0.0-11.0); NEUTROPHILS # (AUTO) 2.8 K/uL (1.8-8.9); NEUTROPHILS % (AUTO) 63.5 % (38.5-71.5); PLATELET COUNT (AUTO) 171 K/uL (152-348); RED BLOOD CELL COUNT(AUTO) 2.75 MIL/uL (4.06-5.63); WHITE BLOOD COUNT (AUTO) 4.5 K/uL (3.6-10.2)
[2018-04-06 20:52] LABS: MAGNESIUM 2.3 mg/dL (1.8-2.4); PHOSPHOROUS 5.5 mg/dL (2.5-4.9); POTASSIUM 4.2 mmol/L (3.5-5.1)
[2018-04-06 21:05] LABS: CREATININE 13.5 mg/dL (0.6-1.3)
--- NOTE | 2018-04-06 21:58 | NUR ---
PATIENT AWAKE IN BED AAOX4. NO S/S OR PAIN OR ACUTE DISTRESS AT PRESENT. PATIENT GETTING DIALYSIS AT THIS TIME
[2018-04-06 22:03] VITALS: BP 155/73
--- NOTE | 2018-04-06 23:30 | NUR ---
DIALYSIS COMPLETE 1.9 LITRES OUT, BP 153/77
[2018-04-06] MEDS: HYDROCODONE/APAP 5-325MG TABLET PO PRN (23:44)
[2018-04-07 06:17] VITALS: BP 166/95
[2018-04-07] MEDS: METOCLOPRAMIDE HCL 5 MG TABLET PO SCH ×3 (06:22→16:30)
[2018-04-07] MEDS: LABETALOL HCL 200 MG TABLET PO SCH ×2 (06:23→14:16)
[2018-04-07] MEDS: PANTOPRAZOLE SODIUM 40 MG TABLET.DR PO SCH (06:24)
--- NOTE | 2018-04-07 06:30 | NUR ---
PATIENT SLEPT ON AND OFF ON THIS SHIFT, PAIN MEDS GIVEN REQUESTED BY PATIENT. NO ACUTE DISTRESS AT PRESENT, NO FURTHER CHANGES IN STATUS
--- NOTE | 2018-04-07 07:20 | NUR ---
PATIENT RECEIVED IN BED, ASLEEP, EASILY AROUSABLE. AOX4. NO S/S OF DISTRESS OR PAIN AT THIS TIME.
[2018-04-07] MEDS: CALCIUM ACETATE 667 MG CAPSULE PO SCH ×3 (08:00→17:00)
[2018-04-07] MEDS: BENAZEPRIL HCL 20 MG TABLET PO SCH (08:13)
[2018-04-07] MEDS: AMLODIPINE 5 MG TABLET PO SCH ×2 (08:14→17:00)
[2018-04-07] MEDS: FOLIC ACID/VITAMIN B COMP W-C TABLET PO SCH (08:14)
[2018-04-07] MEDS: PAROXETINE HCL 10 MG TABLET PO SCH (08:15)
--- NOTE | 2018-04-07 08:30 | NUR ---
PATIENT BP TAKEN 160/101. PATIENT IS REFUSING TO TAKE ALL AM MEDICATIONS. NURSE EXPLAINED THAT IT IS IMPORTANT TO PATIENT TO CONTINUE WITH HIS MEDICATIONS ORDERED. PATIENT STILL REFUSED MEDICATION. MD TO BE NOTIFIED WHEN COMES IN TO SEE PATIENT.
[2018-04-07 11:31] VITALS: BP 162/96
--- NOTE | 2018-04-07 16:45 | NUR ---
PATIENT DISCHARGED TO HOME:SELF CARE. PATIENT REFUSED THE 1600 VITAL SIGNS. PATIENT IN STABLE CONDITION AND ABLE TO AMBULATE. PATIENT DID NOT HAVE AN IV ACCESS. REGLAN, PHOSLO, NORVASC NOT GIVEN. DISCHARGE INSTRUCTIONS GIVEN AND SIGNED. BELONGINGS LIST VENT OVER WITH PATIENT AND SIGNED. MED RECONSILITATION LIST GIVEN TO PATIENT.
[2018-04-07 17:00] VITALS: BP 162/96
== END 2018-04-07 16:55 | disposition home or self-care (01) | DRG 691 ==
LOC: ER 06:56 → TELE 11:59 → MED 04-05 12:45
PROVIDERS: ADMIT Internal Medicine; ATTEND Internal Medicine
PROC: 5A1D70Z Performance of Urinary Filtration, Intermittent, Less than 6 Hours Per Day (ICD-10-PCS; principal; 2018-04-03)
PROC: 30233N1 Transfusion of Nonautologous Red Blood Cells into Peripheral Vein, Percutaneous Approach (ICD-10-PCS; principal; 2018-04-03)
DX: C90.00 Multiple myeloma not having achieved remission (principal); D63.0 Anemia in neoplastic disease; I13.11 Hypertensive heart and chronic kidney disease without heart failure, with stage 5 chronic kidney disease, or end stage renal disease; K86.2 Cyst of pancreas; E87.5 Hyperkalemia; I16.0 Hypertensive urgency; K29.70 Gastritis, unspecified, without bleeding; N18.6 End stage renal disease; K21.9 Gastro-esophageal reflux disease without esophagitis; G89.29 Other chronic pain; F17.200 Nicotine dependence, unspecified, uncomplicated; D63.1 Anemia in chronic kidney disease; Z99.2 Dependence on renal dialysis; Z91.14 Patient's other noncompliance with medication regimen; Z91.15 Patient's noncompliance with renal dialysis; Z79.899 Other long term (current) drug therapy
CPT/HCPCS: 36415; 70030-TC; 71045; 83690; 83735; 84100; 85025; 85730; 86850; 86900; 86901; 86920; 87400; 90937; 93005; A4663; G0378; J0885; J1170; J2405; J7040; J7050; J8597; P9016-BL; P9021

== ENCOUNTER 2018-04-15 20:59 | Inpatient (IN) | payer OTHER ==
[~2018-04-15] VITALS: Ht 170.2 cm; Wt 60.4 kg
--- NOTE | 2018-04-15 21:17 | NUR ---
Dr. Miller at bedside for MSE.
--- NOTE | 2018-04-15 21:20 | NUR ---
Xray at bedside.
[2018-04-15] MEDS ORDERED: OXYCODONE/APAP 5-325 MG TABLET ONE ×2 (21:23→22:15)
[2018-04-15] MEDS ORDERED: OXYCODONE/APAP 5-325 MG TABLET PO ONE ×2 (21:30→22:30)
--- NOTE | 2018-04-15 21:45 | NUR ---
Ultrasound at bedside.
[2018-04-15 22:30] LABS: BASOPHILS % (AUTO) 0.6 % (0.0-2.0); EOSINOPHILS # (AUTO) 0.2 K/uL (0.0-0.7); EOSINOPHILS % (AUTO) 2.9 % (0.0-7.0); LYMPHOCYTES # (AUTO) 1.4 K/uL (20.0-40.0); LYMPHOCYTES % (AUTO) 27.1 % (20.5-51.5); MEAN CORPUSCULAR HEMOGLOBIN 30.2 uug (23.8-33.4); MEAN CORPUSCULAR HGB CONC 34 g/dL (32.5-36.3); MEAN CORPUSCULAR VOLUME 88.3 fL (73.0-96.2); MONOCYTES # (AUTO) 0.7 K/uL (2.0-10.0); MONOCYTES % (AUTO) 13.5 % (0.0-11.0); NEUTROPHILS % (AUTO) 55.9 % (38.5-71.5); PLATELET COUNT (AUTO) 242 K/uL (152-348); WHITE BLOOD COUNT (AUTO) 5.4 K/uL (3.6-10.2)
[2018-04-15 22:37] LABS: HEMATOCRIT 20.7 % (36.7-47.1); HEMOGLOBIN 7.1 g/dL (12.5-16.3); POTASSIUM 4.7 mmol/L (3.5-5.1); RED BLOOD CELL COUNT(AUTO) 2.35 MIL/uL (4.06-5.63)
[2018-04-15 22:43] LABS: BILIRUBIN,DIRECT 0.1 mg/dL (0.0-0.2); BILIRUBIN,TOTAL 0.6 mg/dL (0.2-1.0); CREATININE 13.5 mg/dL (0.6-1.3); TOTAL PROTEIN, SERUM 9.8 g/dL (6.4-8.2)
[2018-04-15 23:04] LABS: MAGNESIUM 2.5 mg/dL (1.8-2.4)
[2018-04-15 23:08] LABS: PHOSPHOROUS 9.5 mg/dL (2.5-4.9)
--- NOTE | 2018-04-15 23:14 | NUR ---
Dr. Miller on phone speaking with Dr. Fern Arroyo.
--- NOTE | 2018-04-15 23:36 | NUR ---
Report given to Felicia ELIZALDE Medsurg.
[2018-04-16 00:50] VITALS: BP 195/112
[2018-04-16] MEDS: CLONIDINE HCL 0.2 MG TABLET PO PRN ×2 (00:54→18:59)
[2018-04-16] MEDS ORDERED: ONDANSETRON ODT 4 MG TAB.RAPDIS SL PRN (01:15)
[2018-04-16] MEDS ORDERED: ACETAMINOPHEN 325 MG TABLET PO PRN (01:15)
[2018-04-16 04:05] VITALS: BP 169/98
[2018-04-16] MEDS: CLONIDINE HCL 0.1 MG TABLET PO PRN ×3 (04:12→06:56)
--- NOTE | 2018-04-16 04:16 | NUR ---
INFORMED PT THAT B/ WAS 169/98, OFFERED MEDICATION, STATED THAT HIS B/P IS ALWAYS HIGH, AND THAT HE WOULD TAKE MEDICINE WHEN HE WAS AWAKE.
[2018-04-16] MEDS: PANTOPRAZOLE SODIUM 40 MG TABLET.DR PO SCH ×2 (06:43→06:56)
[2018-04-16] MEDS: METOCLOPRAMIDE HCL 5 MG TABLET PO SCH ×3 (07:30→16:30)
--- NOTE | 2018-04-16 07:30 | NUR ---
RECEIVED PATIENT ON BED, ASLEEP, NO ACUTE DISTRESS NOTED. NO IV ACCESS. REFUSED AM LABS, PREFERS TO DO IT WITH DIALYSIS. NO COMPLAINTS OF PAIN AT THIS TIME. COMFORT MEASURES PROVIDED PER SMOKE TESTER PATIENT REQUESTED TO ALWAYS KEEP DOOR SHUT. CALL LIGHT WITHIN REACH. WILL CONTINUE TO MONITOR CLOSELY.
--- NOTE | 2018-04-16 07:30 | NUR ---
MEDICATED FOR N/V, UNCOOPERTIVE AT TIMES
[2018-04-16] MEDS ORDERED: CALCIUM ACETATE 667 MG CAPSULE PO SCH (08:00)
[2018-04-16] MEDS: FOLIC ACID/VITAMIN B COMP W-C TABLET PO SCH (09:00)
[2018-04-16] MEDS: LABETALOL HCL 200 MG TABLET PO SCH ×3 (09:00→17:00)
[2018-04-16] MEDS: PAROXETINE HCL 10 MG TABLET PO SCH (09:00)
[2018-04-16] MEDS: BENAZEPRIL HCL 20 MG TABLET PO SCH (09:00)
[2018-04-16] MEDS: AMLODIPINE 5 MG TABLET PO SCH ×2 (09:00→20:57)
[2018-04-16] MEDS ORDERED: CALCIUM CARBONATE 500 MG TAB.CHEW PO PRN (09:30)
[2018-04-16 11:37] VITALS: BP 167/102
[2018-04-16] MEDS: CALCIUM ACETATE 667 MG CAPSULE PO SCH ×2 (12:00→17:00)
[2018-04-16 15:58] VITALS: BP 176/99
--- NOTE | 2018-04-16 16:55 | NUR ---
PATIENT ONGOING HEMODIALYSIS
[2018-04-16 17:01] LABS: BASOPHILS % (AUTO) 0.5 % (0.0-2.0); EOSINOPHILS # (AUTO) 0.1 K/uL (0.0-0.7); EOSINOPHILS % (AUTO) 2.9 % (0.0-7.0); LYMPHOCYTES # (AUTO) 1.2 K/uL (20.0-40.0); LYMPHOCYTES % (AUTO) 26.5 % (20.5-51.5); MEAN CORPUSCULAR HEMOGLOBIN 29.8 uug (23.8-33.4); MEAN CORPUSCULAR HGB CONC 34 g/dL (32.5-36.3); MEAN CORPUSCULAR VOLUME 88.3 fL (73.0-96.2); MONOCYTES # (AUTO) 0.5 K/uL (2.0-10.0); MONOCYTES % (AUTO) 11.8 % (0.0-11.0); NEUTROPHILS # (AUTO) 2.7 K/uL (1.8-8.9); NEUTROPHILS % (AUTO) 58.3 % (38.5-71.5); PLATELET COUNT (AUTO) 218 K/uL (152-348); WHITE BLOOD COUNT (AUTO) 4.6 K/uL (3.6-10.2)
[2018-04-16 17:12] LABS: HEMOGLOBIN 6.4 g/dL (12.5-16.3); RED BLOOD CELL COUNT(AUTO) 2.14 MIL/uL (4.06-5.63)
[2018-04-16 17:13] LABS: HEMATOCRIT 18.9 % (36.7-47.1)
--- NOTE | 2018-04-16 18:47 | NUR ---
HD DONE 1000CC OUT. BP 185/99 78.
--- NOTE | 2018-04-16 18:48 | NUR ---
PATIENT COMPLAINED OF FEELING ANXIOUS AND HEADACHE, ABD PAIN 9. CALLED AND PAGED CNC WOOD LATHE OPERATOR DR. RAMESH, AWAITING CALL BACK.
[2018-04-16 19:34] VITALS: BP 183/103
--- NOTE | 2018-04-16 21:30 | NUR ---
Dr Pallavi Ortiz was paged regarding request for pain medication and anxiety; also referred about pt refusing peripheral blood draw for rpt H/H due to low Hgb; NO NEW ORDERS MADE.
--- NOTE | 2018-04-16 23:10 | NUR ---
Pt requested for Resolution Specialist because he wanted to change MD; Resolution Specialist Ariella Summers came and meet with the patient.
[2018-04-17] MEDS: CLONIDINE HCL 0.2 MG TABLET PO PRN (00:50)
[2018-04-17 03:41] VITALS: BP 176/104
[2018-04-17] MEDS: PANTOPRAZOLE SODIUM 40 MG TABLET.DR PO SCH (06:39)
[2018-04-17] MEDS: METOCLOPRAMIDE HCL 5 MG TABLET PO SCH ×3 (08:42→17:30)
[2018-04-17] MEDS: CALCIUM ACETATE 667 MG CAPSULE PO SCH ×3 (08:42→17:30)
[2018-04-17] MEDS: FOLIC ACID/VITAMIN B COMP W-C TABLET PO SCH (09:16)
[2018-04-17] MEDS: diphenhydrAMINE 25 MG CAP PO PRN ×2 (09:17→20:58)
[2018-04-17] MEDS: AMLODIPINE 5 MG TABLET PO SCH ×2 (09:17→20:58)
[2018-04-17] MEDS: BENAZEPRIL HCL 20 MG TABLET PO SCH (09:17)
[2018-04-17] MEDS: PAROXETINE HCL 10 MG TABLET PO SCH (09:17)
[2018-04-17] MEDS: LABETALOL HCL 200 MG TABLET PO SCH ×3 (09:17→17:30)
[2018-04-17 11:10] VITALS: BP 157/87
[2018-04-17 15:30] VITALS: BP 159/95
[2018-04-17 18:52] LABS: EOSINOPHILS # (AUTO) 0.1 K/uL (0.0-0.7); EOSINOPHILS % (AUTO) 2.7 % (0.0-7.0); LYMPHOCYTES % (AUTO) 23.7 % (20.5-51.5); MEAN CORPUSCULAR HEMOGLOBIN 29.9 uug (23.8-33.4); MEAN CORPUSCULAR HGB CONC 33 g/dL (32.5-36.3); MEAN CORPUSCULAR VOLUME 90.8 fL (73.0-96.2); MONOCYTES # (AUTO) 0.5 K/uL (2.0-10.0); MONOCYTES % (AUTO) 11.5 % (0.0-11.0); NEUTROPHILS # (AUTO) 2.6 K/uL (1.8-8.9); NEUTROPHILS % (AUTO) 61.1 % (38.5-71.5); PLATELET COUNT (AUTO) 219 K/uL (152-348); WHITE BLOOD COUNT (AUTO) 4.3 K/uL (3.6-10.2)
[2018-04-17 19:07] LABS: HEMOGLOBIN 6.6 g/dL (12.5-16.3)
[2018-04-17 19:18] LABS: NEUTROPHILS % (MANUAL) 65 % (42-75)
[2018-04-17 19:19] LABS: EOSINOPHILS % (MANUAL) 6 % (0-8); LYMPHOCYTES % (MANUAL) 21 % (20-40); MONOCYTES % (MANUAL) 8 % (2-10)
--- NOTE | 2018-04-17 19:30 | NUR ---
RECEIVED PT IN BED, AWAKE, ALERT IN NO ACUTE SIGN OF DISTRESS. NO C/O PAIN AT THIS TIME. WILL CONTINUE TO MONITOR.
[2018-04-17 20:56] VITALS: BP 160/90
[2018-04-17] MEDS: TEMAZEPAM 15 MG CAPSULE PO PRN (20:58)
[2018-04-18] VITALS (8 sets, daily range): BP systolic 150–171; BP diastolic 68–105
--- NOTE | 2018-04-18 04:30 | NUR ---
BP ELEVATED, OFFERED TO GIVE BP MED PRN BUT PT REFUSED AND WANTS TO EAT BREAKFAST FIRST BEFORE TAKING ANY BP MEDICATIONS.
[2018-04-18] MEDS: CLONIDINE HCL 0.1 MG TABLET PO PRN (06:38)
[2018-04-18] MEDS: diphenhydrAMINE 25 MG CAP PO PRN ×2 (06:38→21:14)
[2018-04-18] MEDS: PANTOPRAZOLE SODIUM 40 MG TABLET.DR PO SCH (06:38)
[2018-04-18] MEDS: METOCLOPRAMIDE HCL 5 MG TABLET PO SCH ×3 (06:39→17:31)
--- NOTE | 2018-04-18 06:40 | NUR ---
PT REQUESTED HIS BP MED AT THIS TIME , GIVEN CLONIDINE FOR ELEVATED BP. WILL ENDORSE TO AM NURSE.
--- NOTE | 2018-04-18 07:30 | NUR ---
awake alert and oriented, breakfast served but states will eat later, still wants to sleep,for blood transfusion of 1 unit prbc on dialysis today,explained plan of care and verbalized understanding, call light within reach.
[2018-04-18] MEDS: CALCIUM ACETATE 667 MG CAPSULE PO SCH ×4 (08:00→18:24)
--- NOTE | 2018-04-18 08:30 | NUR ---
seen by Dr Rowe
[2018-04-18] MEDS ORDERED: MISCELLANEOUS MED PO SCH (08:45)
--- NOTE | 2018-04-18 08:45 | NUR ---
dialysis nurse here, consent for blood transfusion signed.
[2018-04-18] MEDS: LABETALOL HCL 200 MG TABLET PO SCH ×4 (09:00→18:25)
--- NOTE | 2018-04-18 09:17 | NUR ---
blood transfusion started, vs stable, will monitor closely for any reaction
--- NOTE | 2018-04-18 09:32 | NUR ---
blood infusing, vs stable, no rashes, no reaction noted
--- NOTE | 2018-04-18 09:56 | NUR ---
routine meds due at 0900 not given since pt is on dialysis
--- NOTE | 2018-04-18 10:27 | NUR ---
blood transfusion completed, no reactions noted, dialysis in progress
--- NOTE | 2018-04-18 11:00 | NUR ---
dialysis completed, left arm shunt dsg dry and intact, wanted to rest at this time, will continue to monitor closely
--- NOTE | 2018-04-18 12:30 | NUR ---
awake and lunch served. vs taken.
[2018-04-18] MEDS: PAROXETINE HCL 10 MG TABLET PO SCH (12:31)
[2018-04-18] MEDS: BENAZEPRIL HCL 20 MG TABLET PO SCH (12:31)
[2018-04-18] MEDS: AMLODIPINE 5 MG TABLET PO SCH ×2 (12:32→21:14)
[2018-04-18] MEDS: FOLIC ACID/VITAMIN B COMP W-C TABLET PO SCH (12:32)
[2018-04-18] MEDS ORDERED: DEXAMETHASONE 4 MG TABLET PO SCH (13:00)
--- NOTE | 2018-04-18 13:30 | NUR ---
spoke to pharmacist re Decadron without Revlimid- states Dr Mcdaniel okayed to give Decadron without Revlimid (not avail at this time)
--- NOTE | 2018-04-18 18:30 | NUR ---
no distress noted, all needs attended and met, no bleeding noted, safety measures maintained, call light within reach
--- NOTE | 2018-04-18 19:30 | NUR ---
PT RECEIVED INSIDE HIS ROOM, SITTING ON CHAIR. NO ACUTE SIGNS OF DISTRESS. ALERT AND ABLE TO MAKE NEEDS KNOWN.
[2018-04-18] MEDS: TEMAZEPAM 15 MG CAPSULE PO PRN (21:16)
[2018-04-19 04:41] VITALS: BP 174/99
[2018-04-19] MEDS: diphenhydrAMINE 25 MG CAP PO PRN ×2 (04:45→20:03)
[2018-04-19] MEDS: CLONIDINE HCL 0.2 MG TABLET PO PRN (04:46)
[2018-04-19 05:56] VITALS: BP 151/88
[2018-04-19 08:05] LABS: IMMUNOGLOBULIN M, SERUM 13 mg/dL (20-172)
[2018-04-19 08:31] LABS: MAGNESIUM 2.4 mg/dL (1.8-2.4); PHOSPHOROUS 3.6 mg/dL (2.5-4.9)
[2018-04-19 08:37] LABS: CREATININE 12.3 mg/dL (0.6-1.3)
[2018-04-19 08:50] LABS: BASOPHILS % (AUTO) 0.1 % (0.0-2.0); LYMPHOCYTES # (AUTO) 0.5 K/uL (20.0-40.0); LYMPHOCYTES % (AUTO) 10.5 % (20.5-51.5); MEAN CORPUSCULAR HEMOGLOBIN 30.2 uug (23.8-33.4); MEAN CORPUSCULAR HGB CONC 34 g/dL (32.5-36.3); MEAN CORPUSCULAR VOLUME 88.3 fL (73.0-96.2); MONOCYTES # (AUTO) 0.1 K/uL (2.0-10.0); MONOCYTES % (AUTO) 1.6 % (0.0-11.0); NEUTROPHILS # (AUTO) 4.4 K/uL (1.8-8.9); NEUTROPHILS % (AUTO) 87.8 % (38.5-71.5); PLATELET COUNT (AUTO) 195 K/uL (152-348); RED BLOOD CELL COUNT(AUTO) 2.66 MIL/uL (4.06-5.63)
[2018-04-19] MEDS: FOLIC ACID/VITAMIN B COMP W-C TABLET PO SCH (08:55)
[2018-04-19] MEDS: METOCLOPRAMIDE HCL 5 MG TABLET PO SCH ×4 (08:55→17:28)
[2018-04-19] MEDS: PANTOPRAZOLE SODIUM 40 MG TABLET.DR PO SCH (08:55)
[2018-04-19] MEDS: CALCIUM ACETATE 667 MG CAPSULE PO SCH ×4 (08:55→17:26)
[2018-04-19] MEDS: LABETALOL HCL 200 MG TABLET PO SCH ×4 (08:57→17:27)
[2018-04-19] MEDS: PAROXETINE HCL 10 MG TABLET PO SCH (09:00)
[2018-04-19] MEDS: BENAZEPRIL HCL 20 MG TABLET PO SCH (09:00)
[2018-04-19] MEDS: AMLODIPINE 5 MG TABLET PO SCH ×2 (09:00→20:00)
--- NOTE | 2018-04-19 09:17 | NUR ---
Pt is agitated and irritable refused to take majority of blood pressure medication. Pt only took labetalol. pt was taught about the risks of no taking blood pressure medication. pt understands and still refuses blood pressure medication. continue to monitor pt.
[2018-04-19 09:48] LABS: HEMATOCRIT 23.5 % (36.7-47.1)
[2018-04-19 11:14] VITALS: BP 168/97
[2018-04-19] MEDS ORDERED: SODIUM POLYSTYRENE SULF POWDER 15 GM UDC PO ONE (12:00)
[2018-04-19] MEDS ORDERED: SODIUM POLYSTYRENE SULFONATE 15 G/60 ML LIQUID UDC PO ONE (12:00)
[2018-04-19 15:03] VITALS: BP 166/94
--- NOTE | 2018-04-19 19:30 | NUR ---
PT IS NOT COMPLIANT WITH MEDICATION, NO SIGNS OF DISTRESS, AGITATED, AOX4, ROOM AIR, AMBULATORY, ENDORSE REPORT TO WHIZZER.
[2018-04-19 20:00] VITALS: BP 157/83
[2018-04-20] MEDS: TEMAZEPAM 15 MG CAPSULE PO PRN ×2 (00:40→22:24)
--- NOTE | 2018-04-20 05:24 | NUR ---
PT SLEPT INTERMITTENTLY THROUGHS THE NIGHT AND WAS EASILY AWOKEN, PT DENIES HAVING ANY PAIN AT THIS TIME, PT DENIES HAVING ANY DIFFICULTY BREATHING. ALL NEEDS MET, SAFETY MEASURES ARE IN PLACE, CALL LIGHT WITHIN REACH, BED ALARM IS ON.
[2018-04-20 06:17] VITALS: BP 155/98
[2018-04-20] MEDS: METOCLOPRAMIDE HCL 5 MG TABLET PO SCH ×3 (06:58→16:54)
[2018-04-20] MEDS: PANTOPRAZOLE SODIUM 40 MG TABLET.DR PO SCH (06:58)
[2018-04-20] MEDS: BENAZEPRIL HCL 20 MG TABLET PO SCH (09:00)
[2018-04-20] MEDS: AMLODIPINE 5 MG TABLET PO SCH ×2 (09:00→22:25)
[2018-04-20] MEDS: PAROXETINE HCL 10 MG TABLET PO SCH (09:06)
[2018-04-20] MEDS: LABETALOL HCL 200 MG TABLET PO SCH ×3 (09:07→16:54)
[2018-04-20] MEDS: CALCIUM ACETATE 667 MG CAPSULE PO SCH ×3 (09:08→16:53)
[2018-04-20] MEDS: FOLIC ACID/VITAMIN B COMP W-C TABLET PO SCH (09:22)
--- NOTE | 2018-04-20 09:48 | NUR ---
SBAR report received this morning. Pt assessed no SOB on RA, and NAD. Pt denies pain. Pt compliant with only certain routinely scheduled medication administration this morning, choose only 1 BP medication. Pt education provided. BP 162/97, 81 hr, and 98% O2. Bed in locked and lowest position, side rails up, bed alarm on. All comfort and safety measures implemented at this time. Call light and personal items placed within reach. Will continue to monitor.
--- NOTE | 2018-04-20 11:30 | NUR ---
Critical lab values received, notified. No new orders at this time. Will continue to monitor Pt for safety.
[2018-04-20 11:36] LABS: BASOPHILS % (AUTO) 0.3 % (0.0-2.0); HEMATOCRIT 24.3 % (36.7-47.1); HEMOGLOBIN 8.3 g/dL (12.5-16.3); LYMPHOCYTES # (AUTO) 0.6 K/uL (20.0-40.0); LYMPHOCYTES % (AUTO) 7.4 % (20.5-51.5); MEAN CORPUSCULAR HEMOGLOBIN 30.3 uug (23.8-33.4); MEAN CORPUSCULAR HGB CONC 34 g/dL (32.5-36.3); MONOCYTES # (AUTO) 0.5 K/uL (2.0-10.0); MONOCYTES % (AUTO) 5.7 % (0.0-11.0); NEUTROPHILS # (AUTO) 7.4 K/uL (1.8-8.9); NEUTROPHILS % (AUTO) 86.6 % (38.5-71.5); PLATELET COUNT (AUTO) 180 K/uL (152-348); RED BLOOD CELL COUNT(AUTO) 2.73 MIL/uL (4.06-5.63); WHITE BLOOD COUNT (AUTO) 8.6 K/uL (3.6-10.2)
[2018-04-20 11:48] LABS: MAGNESIUM 2.2 mg/dL (1.8-2.4); PHOSPHOROUS 4.6 mg/dL (2.5-4.9); POTASSIUM 4.4 mmol/L (3.5-5.1)
[2018-04-20 11:51] LABS: CREATININE 10.6 mg/dL (0.6-1.3)
[2018-04-20 11:57] VITALS: BP 151/90
[2018-04-20] MEDS: diphenhydrAMINE 25 MG CAP PO PRN ×2 (12:07→22:24)
[2018-04-20 16:00] VITALS: BP 154/86
[2018-04-20 19:24] VITALS: BP 156/93
--- NOTE | 2018-04-20 19:30 | NUR ---
Received patient in bed. Alert and verbally responsive. Able to make needs known. Denies any pain and discomfort. No acute distress. No SOB. Left A/V shunt to Left arm. No s/s of bleeding. Kept clean and dry. All needs attended to promptly. Call light within reach. Will Continue to monitor.
--- NOTE | 2018-04-20 19:49 | NUR ---
Dialysis completed today removed 1L. NAD. Pt refused PRN BP medications but compliant with routinely scheduled medication administration. All needs promptly met throughout this shift. Will continue to monitor and endorse to oncoming nurse.
--- NOTE | 2018-04-20 21:00 | NUR ---
Patient noted with BP of 156/93, HR 82. Refusing 2100 BP medication at this time. Explained risks and benefits but still strongly refuse. Per patient, he will let me know when he wants to take his BP medication. Asymptomatic at this time. No c/o pain and discomfort. No acute distress. No SOB. Kept clean and dry. All needs attended to promptly. Call light within reach. Will continue to monitor.
[2018-04-21 03:42] VITALS: BP 155/89
[2018-04-21] MEDS: PANTOPRAZOLE SODIUM 40 MG TABLET.DR PO SCH (06:42)
[2018-04-21] MEDS: METOCLOPRAMIDE HCL 5 MG TABLET PO SCH ×3 (06:42→16:30)
--- NOTE | 2018-04-21 07:30 | NUR ---
PATIENT SITTING UP IN CHAIR. WILL CARRY OUT PLAN THROUGHOUT THE DAY. CALL LIGHT WITHIN REACH. NO COMPLAINTS OF PAIN. NO DISTRESS NOTED.
[2018-04-21] MEDS ORDERED: DEXAMETHASONE 4 MG TABLET PO SCH (08:45)
[2018-04-21] MEDS: CALCIUM ACETATE 667 MG CAPSULE PO SCH ×3 (08:51→17:00)
[2018-04-21] MEDS: BENAZEPRIL HCL 20 MG TABLET PO SCH (08:52)
[2018-04-21] MEDS: AMLODIPINE 5 MG TABLET PO SCH ×2 (08:53→21:00)
[2018-04-21] MEDS: FOLIC ACID/VITAMIN B COMP W-C TABLET PO SCH (08:53)
[2018-04-21] MEDS: PAROXETINE HCL 10 MG TABLET PO SCH (08:53)
[2018-04-21] MEDS: LABETALOL HCL 200 MG TABLET PO SCH ×4 (08:53→18:27)
[2018-04-21 11:17] VITALS: BP 127/85
[2018-04-21] MEDS: diphenhydrAMINE 25 MG CAP PO PRN (12:54)
[2018-04-21 15:10] LABS: IMMUNOGLOBULIN E, TOTAL <2 IU/mL (0-100)
--- NOTE | 2018-04-21 17:20 | NUR ---
PATIENT HAS BEEN REFUSING BLOOD PRESSURE CHECKS WHOLE AFTERNOON. PATIENT REFUSED MEDICATIONS.
--- NOTE | 2018-04-21 18:30 | NUR ---
Patient requested to have blood pressure taken, BP 167/96 P81. Gave Labetolol medication at 1825 although it was originally due at 1700. Patient refused PRN clonidine for SBP over 160.
--- NOTE | 2018-04-21 19:01 | NUR ---
Patient is lying in bed, bed is in low locked position with call light in reach. No distress or pain reported or noted. No IV access.
[2018-04-22] MEDS: TEMAZEPAM 15 MG CAPSULE PO PRN (00:53)
[2018-04-22] MEDS: diphenhydrAMINE 25 MG CAP PO PRN (00:54)
[2018-04-22 03:38] VITALS: BP 150/84
--- NOTE | 2018-04-22 04:45 | NUR ---
admitted for acute renal failure. aaox4 ambulatory. patient non-compliant with care and treatment. refused vital signs. refused meds. no acute distress noted. needs attended. c/o of itching, benadryl given. patient also request for sleeping pill, given as needed. denies any pain at this time. will monitor patient.
[2018-04-22] MEDS: PANTOPRAZOLE SODIUM 40 MG TABLET.DR PO SCH (06:31)
[2018-04-22] MEDS: METOCLOPRAMIDE HCL 5 MG TABLET PO SCH ×3 (06:31→16:51)
--- NOTE | 2018-04-22 07:00 | NUR ---
Patient is sleeping in bed, no acute distress noted. safety reinforced, will monitor patient.
[2018-04-22] MEDS: CALCIUM ACETATE 667 MG CAPSULE PO SCH ×3 (08:00→16:51)
[2018-04-22] MEDS: BENAZEPRIL HCL 20 MG TABLET PO SCH (09:00)
[2018-04-22] MEDS: FOLIC ACID/VITAMIN B COMP W-C TABLET PO SCH (09:00)
[2018-04-22] MEDS: AMLODIPINE 5 MG TABLET PO SCH ×2 (09:00→20:31)
[2018-04-22] MEDS: PAROXETINE HCL 10 MG TABLET PO SCH (09:00)
[2018-04-22] MEDS: LABETALOL HCL 200 MG TABLET PO SCH ×4 (09:00→16:51)
--- NOTE | 2018-04-22 09:03 | NUR ---
Patient refused 0800 and 0900 am medications, stated :" BP ( 157/96) is not high for me"
--- NOTE | 2018-04-22 11:00 | NUR ---
CALLED TO VERIFY TIME FOR DIALYSIS BUT THEY COULDN'T TELL THE TIME: BUT SAID WILL COME TODAY
[2018-04-22 11:11] VITALS: BP 164/96
[2018-04-22] MEDS: LOPERAMIDE HCL 2 MG CAPSULE PO PRN (12:17)
--- NOTE | 2018-04-22 12:23 | NUR ---
PATIENT REFUSED HIS -1299 MEDS. HE WAS NOTIFIED ABOUT BP AND THE RISKS TO HAVE IT HIGH, BUT HE STATED "DONT WORRY ABOUT MY BP ITS GONNA BE ALRIGHT" HE ONLY TOOK MED iMODUIM FROM [facility]
[2018-04-22] MEDS: CLONIDINE HCL 0.1 MG TABLET PO PRN ×2 (13:00→16:53)
[2018-04-22 14:06] LABS: *IGG SUBCLASS 1 2730 mg/dL (248-810); *IGG SUBCLASS 2 24 mg/dL (130-555); *IGG SUBCLASS 3 8 mg/dL (15-102); *IGG SUBCLASS 4 1 mg/dL (2-96); *IMMUNOGLOBULIN G, SERUM 4243 mg/dL (700-1600)
[2018-04-22 15:03] VITALS: BP 156/80
[2018-04-22 16:58] VITALS: BP 166/100
[2018-04-22 17:30] LABS: BASOPHILS % (AUTO) 0.3 % (0.0-2.0); EOSINOPHILS # (AUTO) 0.1 K/uL (0.0-0.7); EOSINOPHILS % (AUTO) 2.9 % (0.0-7.0); HEMATOCRIT 22.1 % (36.7-47.1); LYMPHOCYTES # (AUTO) 1.4 K/uL (20.0-40.0); LYMPHOCYTES % (AUTO) 26.2 % (20.5-51.5); MEAN CORPUSCULAR HEMOGLOBIN 29.7 uug (23.8-33.4); MEAN CORPUSCULAR HGB CONC 34 g/dL (32.5-36.3); MEAN CORPUSCULAR VOLUME 88.3 fL (73.0-96.2); MONOCYTES # (AUTO) 0.5 K/uL (2.0-10.0); MONOCYTES % (AUTO) 9.5 % (0.0-11.0); NEUTROPHILS # (AUTO) 3.1 K/uL (1.8-8.9); NEUTROPHILS % (AUTO) 61.1 % (38.5-71.5); PLATELET COUNT (AUTO) 133 K/uL (152-348); WHITE BLOOD COUNT (AUTO) 5.2 K/uL (3.6-10.2)
[2018-04-22 17:40] LABS: MAGNESIUM 2.3 mg/dL (1.8-2.4); PHOSPHOROUS 5.5 mg/dL (2.5-4.9); POTASSIUM 5.8 mmol/L (3.5-5.1)
[2018-04-22 17:42] LABS: HEMOGLOBIN 7.4 g/dL (12.5-16.3)
[2018-04-22 17:43] LABS: CREATININE 11.5 mg/dL (0.6-1.3)
--- NOTE | 2018-04-22 18:43 | NUR ---
PATIENT IS SLEEPING IN BED AND DIALYZING RIGHT NOW, LABS REPORTED TO DIALYSIS NURSE, NO DISTRESS AT THE MOMENT. PATIENT WAS NOT COMPLIANT WITH MEDICATIONS TODAY, STOOL SENT FOR CULTURE C-DIFF. SAFETY MAINTAINED AND TEACHING IS DONE ABOUT BP MEDS REGIMENT.
[2018-04-22 20:00] VITALS: BP 154/93
--- NOTE | 2018-04-22 20:30 | NUR ---
PATIENT AWAKE IN BED, AAOX4. DENIES PAIN OR ANY DISTRESS ON ASSESSMENT. DIALYSIS DONE WITH 2000 ML OUT, BP ELEVATED MEDS GIVEN ORDERED. SAFETY MEASURES IN PLACE. WILL CONTINUE TO MONITOR PATIENT
[2018-04-23] MEDS: TEMAZEPAM 15 MG CAPSULE PO PRN (00:44)
[2018-04-23] MEDS: diphenhydrAMINE 25 MG CAP PO PRN ×2 (00:44→11:58)
[2018-04-23 06:01] VITALS: BP 157/95
[2018-04-23] MEDS: METOCLOPRAMIDE HCL 5 MG TABLET PO SCH ×3 (06:38→16:45)
[2018-04-23] MEDS: PANTOPRAZOLE SODIUM 40 MG TABLET.DR PO SCH (06:38)
--- NOTE | 2018-04-23 06:43 | NUR ---
PATIENT SLEPT MOST THE SHIFT, NO C/O PAIN AT PRESENT. NO ACUTE DISTRESS ON THIS SHIFT, NO SIGNIFICANT CHANGES AT THIS TIME.
[2018-04-23 06:57] LABS: MAGNESIUM 2.2 mg/dL (1.8-2.4); PHOSPHOROUS 5.4 mg/dL (2.5-4.9); POTASSIUM 4.8 mmol/L (3.5-5.1)
[2018-04-23 06:58] LABS: BASOPHILS % (AUTO) 0.7 % (0.0-2.0); EOSINOPHILS # (AUTO) 0.2 K/uL (0.0-0.7); EOSINOPHILS % (AUTO) 4.5 % (0.0-7.0); HEMATOCRIT 27.4 % (36.7-47.1); HEMOGLOBIN 9.1 g/dL (12.5-16.3); LYMPHOCYTES # (AUTO) 1.3 K/uL (20.0-40.0); LYMPHOCYTES % (AUTO) 33.8 % (20.5-51.5); MEAN CORPUSCULAR HEMOGLOBIN 29.3 uug (23.8-33.4); MEAN CORPUSCULAR HGB CONC 33 g/dL (32.5-36.3); MEAN CORPUSCULAR VOLUME 87.9 fL (73.0-96.2); MONOCYTES # (AUTO) 0.3 K/uL (2.0-10.0); MONOCYTES % (AUTO) 8.3 % (0.0-11.0); NEUTROPHILS # (AUTO) 2.1 K/uL (1.8-8.9); NEUTROPHILS % (AUTO) 52.7 % (38.5-71.5); PLATELET COUNT (AUTO) 155 K/uL (152-348); RED BLOOD CELL COUNT(AUTO) 3.12 MIL/uL (4.06-5.63)
[2018-04-23 07:00] LABS: CREATININE 8.6 mg/dL (0.6-1.3)
--- NOTE | 2018-04-23 07:00 | NUR ---
PATIENT AWAKE IN BED, AAOX4. DENIES PAIN OR ANY DISTRESS ON ASSESSMENT. SAFETY MEASURES IN PLACE. WILL CONTINUE TO MONITOR PATIENT
[2018-04-23] MEDS: CALCIUM ACETATE 667 MG CAPSULE PO SCH ×3 (09:18→16:45)
[2018-04-23] MEDS: BENAZEPRIL HCL 20 MG TABLET PO SCH (09:19)
[2018-04-23] MEDS: PAROXETINE HCL 10 MG TABLET PO SCH (09:19)
[2018-04-23] MEDS: LABETALOL HCL 200 MG TABLET PO SCH ×3 (09:19→16:45)
[2018-04-23] MEDS: AMLODIPINE 5 MG TABLET PO SCH ×2 (09:20→20:21)
[2018-04-23] MEDS: FOLIC ACID/VITAMIN B COMP W-C TABLET PO SCH (09:20)
[2018-04-23 11:42] VITALS: BP 140/81
--- NOTE | 2018-04-23 13:21 | NUR ---
PATIENT REFUSED HIS 1200, 1300 MEDS
[2018-04-23 15:26] VITALS: BP 147/90
--- NOTE | 2018-04-23 18:00 | NUR ---
PATIENT AWAKE IN BED, AAOX4. DENIES PAIN OR ANY DISTRESS ON ASSESSMENT. PATIENT WAS COOPERATIVE THE MOST OF TIMES, BP MAINTAINED AT 140S/150S, REFUSED MEDS SAFETY MEASURES IN PLACE. WILL CONTINUE TO MONITOR PATIENT
--- NOTE | 2018-04-23 19:30 | NUR ---
PATIENT ASLEEP BU EASILY AROUSABLE, DENIES PAIN OR ANY DISTRESS ON ASSESSMENT. SAFETY MEASURES IN PLACE, WILL CONTINUE TO MONITOR PATIENT
--- NOTE | 2018-04-23 20:30 | NUR ---
Asleep but easily arousable. No SOB denies chest pain. Refused night p.o meds & doesn't want to be disturbed for now. Vital signs WNL.
[2018-04-23 21:39] VITALS: BP 127/90
--- NOTE | 2018-04-24 | NUR ---
RECEIVED PATIENT FROM RN. PATIENT ASLEEP IN BED. CALL LIGHT IN REACH. ALL NEEDS ATTENDED .
[2018-04-24] MEDS: TEMAZEPAM 15 MG CAPSULE PO PRN (02:25)
[2018-04-24] MEDS: diphenhydrAMINE 25 MG CAP PO PRN ×2 (02:25→11:29)
[2018-04-24 05:39] VITALS: BP 152/86
[2018-04-24] MEDS: PANTOPRAZOLE SODIUM 40 MG TABLET.DR PO SCH (06:27)
--- NOTE | 2018-04-24 06:57 | NUR ---
PATIENT ASLEEP. REFUSED AM VITALS.
[2018-04-24] MEDS: CALCIUM ACETATE 667 MG CAPSULE PO SCH ×4 (09:10→17:46)
[2018-04-24] MEDS: FOLIC ACID/VITAMIN B COMP W-C TABLET PO SCH (09:11)
[2018-04-24] MEDS: PAROXETINE HCL 10 MG TABLET PO SCH (09:11)
[2018-04-24] MEDS: METOCLOPRAMIDE HCL 5 MG TABLET PO SCH ×4 (09:12→17:46)
[2018-04-24] MEDS: BENAZEPRIL HCL 20 MG TABLET PO SCH (09:13)
[2018-04-24] MEDS: AMLODIPINE 5 MG TABLET PO SCH ×3 (09:13→21:58)
[2018-04-24] MEDS: LABETALOL HCL 200 MG TABLET PO SCH ×4 (09:14→17:49)
[2018-04-24 11:54] VITALS: BP 140/77
[2018-04-24 14:25] LABS: BASOPHILS % (AUTO) 0.6 % (0.0-2.0); EOSINOPHILS # (AUTO) 0.2 K/uL (0.0-0.7); EOSINOPHILS % (AUTO) 3.9 % (0.0-7.0); LYMPHOCYTES # (AUTO) 1.3 K/uL (20.0-40.0); LYMPHOCYTES % (AUTO) 26.6 % (20.5-51.5); MEAN CORPUSCULAR HEMOGLOBIN 30.2 uug (23.8-33.4); MEAN CORPUSCULAR HGB CONC 34 g/dL (32.5-36.3); MEAN CORPUSCULAR VOLUME 87.8 fL (73.0-96.2); MONOCYTES # (AUTO) 0.4 K/uL (2.0-10.0); MONOCYTES % (AUTO) 8.2 % (0.0-11.0); NEUTROPHILS % (AUTO) 60.7 % (38.5-71.5); PLATELET COUNT (AUTO) 133 K/uL (152-348)
[2018-04-24 14:33] LABS: RED BLOOD CELL COUNT(AUTO) 2.34 MIL/uL (4.06-5.63)
[2018-04-24 14:35] LABS: HEMATOCRIT 20.6 % (36.7-47.1); HEMOGLOBIN 7.1 g/dL (12.5-16.3)
[2018-04-24 14:37] LABS: MAGNESIUM 2.3 mg/dL (1.8-2.4); PHOSPHOROUS 6.5 mg/dL (2.5-4.9); POTASSIUM 4.8 mmol/L (3.5-5.1)
[2018-04-24 14:39] LABS: CREATININE 11.3 mg/dL (0.6-1.3)
[2018-04-24 15:25] VITALS: BP 165/97
--- NOTE | 2018-04-24 19:00 | NUR ---
RECEIVED PATIENT AWAKE ON BED, WITH LEFT ARM FISTULA, (+) THRILLS AND BRUIT SOUND, PATIENT DENIES PAIN, HAD DIALYSIS DONE ON BED SIDE, KEPT COMFORTABLE AT ALL TIMES WITH ALL NEEDS MET , WILL CONTINUE MONITOR
--- NOTE | 2018-04-24 19:39 | NUR ---
PATIENT IS ASLEEP BUT EASILY AROUSABLE. IN NO ACUTE DISTRESS. NO C/O PAIN ON ASSESSMENT. SAFETY MEASURES IN PLACE, WILL CONTINUE TO MONITOR PATIENT
[2018-04-24 21:28] VITALS: BP 155/87
[2018-04-25] MEDS: TEMAZEPAM 15 MG CAPSULE PO PRN ×2 (00:51→23:31)
[2018-04-25] MEDS: diphenhydrAMINE 25 MG CAP PO PRN ×2 (00:51→23:31)
[2018-04-25] MEDS: LOPERAMIDE HCL 2 MG CAPSULE PO PRN (01:13)
[2018-04-25 05:49] VITALS: BP 145/62
[2018-04-25] MEDS: PANTOPRAZOLE SODIUM 40 MG TABLET.DR PO SCH (06:37)
[2018-04-25] MEDS: METOCLOPRAMIDE HCL 5 MG TABLET PO SCH ×4 (06:37→16:55)
--- NOTE | 2018-04-25 06:50 | NUR ---
PATIENT SLEEPING NO C/O PAIN OR ACUTE DISTRESS AT PRESENT. [facility] X1 EPISODE ON THIS SHIFT, PRN LOPERAMIDE GIVEN WITH EFFECT. NO FURTHER CHANGES IN STATUS.
--- NOTE | 2018-04-25 07:30 | NUR ---
RECEIVED REPORT FROM EMERGENCY MANAGEMENT CONSULTANT NURSE, PATIENT IN BED AWAKE, NO DISTRESS NOTED AT THIS TIME, BED IN LOW POSITION, SIDE RAILS UP X2, CALL LIGHT IN REACH.
[2018-04-25 07:39] LABS: BASOPHILS % (AUTO) 0.5 % (0.0-2.0); EOSINOPHILS # (AUTO) 0.2 K/uL (0.0-0.7); EOSINOPHILS % (AUTO) 3.6 % (0.0-7.0); HEMATOCRIT 23.3 % (36.7-47.1); LYMPHOCYTES # (AUTO) 1.5 K/uL (20.0-40.0); LYMPHOCYTES % (AUTO) 30.4 % (20.5-51.5); MEAN CORPUSCULAR HEMOGLOBIN 29.9 uug (23.8-33.4); MEAN CORPUSCULAR HGB CONC 34 g/dL (32.5-36.3); MEAN CORPUSCULAR VOLUME 87.7 fL (73.0-96.2); MONOCYTES # (AUTO) 0.5 K/uL (2.0-10.0); MONOCYTES % (AUTO) 9.4 % (0.0-11.0); NEUTROPHILS # (AUTO) 2.7 K/uL (1.8-8.9); NEUTROPHILS % (AUTO) 56.1 % (38.5-71.5); PLATELET COUNT (AUTO) 149 K/uL (152-348); RED BLOOD CELL COUNT(AUTO) 2.66 MIL/uL (4.06-5.63); WHITE BLOOD COUNT (AUTO) 4.9 K/uL (3.6-10.2)
[2018-04-25 07:41] LABS: MAGNESIUM 2.3 mg/dL (1.8-2.4); PHOSPHOROUS 6.4 mg/dL (2.5-4.9); POTASSIUM 5.1 mmol/L (3.5-5.1)
[2018-04-25 07:42] LABS: CREATININE 8.7 mg/dL (0.6-1.3)
[2018-04-25] MEDS: CALCIUM ACETATE 667 MG CAPSULE PO SCH ×4 (09:38→17:00)
[2018-04-25] MEDS: PAROXETINE HCL 10 MG TABLET PO SCH (09:38)
[2018-04-25] MEDS: FOLIC ACID/VITAMIN B COMP W-C TABLET PO SCH (09:38)
[2018-04-25] MEDS: AMLODIPINE 5 MG TABLET PO SCH ×2 (09:41→21:44)
[2018-04-25] MEDS: BENAZEPRIL HCL 20 MG TABLET PO SCH (09:42)
[2018-04-25] MEDS: LABETALOL HCL 200 MG TABLET PO SCH ×4 (09:42→17:00)
[2018-04-25 11:46] VITALS: BP 141/78
[2018-04-25 15:32] VITALS: BP 157/96
--- NOTE | 2018-04-25 19:02 | NUR ---
PATIENT WAS NOT COOPERATIVE WITH EVENING MEDICATIONS, SAID THAT HE DIDN'T WANT ANY MORE TABLETS AND THAT HIS STOMACH HURT. PATIENT IN BED, BED IN LOW POSITION, SIDE RAILS UP X2.
--- NOTE | 2018-04-25 19:35 | NUR ---
Received patient awake in bed, not in any form of distress. Patient is alert and oriented x 4. No complaints at this time. Noted with diarrhea episode per report, will monitor for recurrence. Patient able to ambulate. Bed in low position, locked, side rails up x 2, call light within reach. Patient has no needs at the moment, informed him to use the call light if he needs something. Noise and lights subdued.
[2018-04-25 20:22] VITALS: BP 151/98
[2018-04-26 06:04] VITALS: BP 139/79
--- NOTE | 2018-04-26 06:33 | NUR ---
Patient undergoing hemodialysis at the moment. Patient refusing to take meds at the moment, will endorse to morning shift. No complaints at this time. Patient slept well throughout the shift. Attended all needs. Ensured safety and comfort.
[2018-04-26 06:36] LABS: EOSINOPHILS # (AUTO) 0.2 K/uL (0.0-0.7); LYMPHOCYTES # (AUTO) 1.7 K/uL (20.0-40.0)
[2018-04-26 06:45] LABS: BASOPHILS % (AUTO) 0.8 % (0.0-2.0); EOSINOPHILS % (AUTO) 4.3 % (0.0-7.0); LYMPHOCYTES % (AUTO) 30.7 % (20.5-51.5); MEAN CORPUSCULAR HEMOGLOBIN 29.9 uug (23.8-33.4); MEAN CORPUSCULAR HGB CONC 34 g/dL (32.5-36.3); MEAN CORPUSCULAR VOLUME 88.5 fL (73.0-96.2); MONOCYTES # (AUTO) 0.5 K/uL (2.0-10.0); MONOCYTES % (AUTO) 9.6 % (0.0-11.0); NEUTROPHILS % (AUTO) 54.6 % (38.5-71.5); PLATELET COUNT (AUTO) 141 K/uL (152-348); WHITE BLOOD COUNT (AUTO) 5.5 K/uL (3.6-10.2)
[2018-04-26 06:46] LABS: MAGNESIUM 2.2 mg/dL (1.8-2.4); PHOSPHOROUS 6.4 mg/dL (2.5-4.9); RED BLOOD CELL COUNT(AUTO) 2.41 MIL/uL (4.06-5.63)
[2018-04-26 06:47] LABS: HEMATOCRIT 21.3 % (36.7-47.1)
[2018-04-26 06:50] LABS: HEMOGLOBIN 7.2 g/dL (12.5-16.3)
--- NOTE | 2018-04-26 06:53 | NUR ---
Noted latest hemoglobin is 7.2, hematocrit 21.3, will endorse to morning shift to inform hospitalist. Patient currently undergoing hemodialysis.
[2018-04-26 07:15] LABS: CREATININE 11.8 mg/dL (0.6-1.3)
--- NOTE | 2018-04-26 07:15 | NUR ---
PATIENT CURRENTLY GOING THROUGH HEMODIALYSIS, IN BED RESTING COMFORTABLY. NO SOB OR NO PAIN NOTED. WILL CONTINUE TO MONITOR AND CONTINUE OF PLAN OF CARE.
[2018-04-26] MEDS: METOCLOPRAMIDE HCL 5 MG TABLET PO SCH ×3 (08:11→16:30)
[2018-04-26] MEDS: PANTOPRAZOLE SODIUM 40 MG TABLET.DR PO SCH (08:11)
[2018-04-26] MEDS: CALCIUM ACETATE 667 MG CAPSULE PO SCH ×3 (08:12→19:41)
[2018-04-26] MEDS: AMLODIPINE 5 MG TABLET PO SCH ×2 (08:20→21:33)
[2018-04-26] MEDS: FOLIC ACID/VITAMIN B COMP W-C TABLET PO SCH (08:20)
[2018-04-26] MEDS: PAROXETINE HCL 10 MG TABLET PO SCH (08:20)
[2018-04-26] MEDS: LABETALOL HCL 200 MG TABLET PO SCH ×3 (08:21→19:41)
[2018-04-26] MEDS: BENAZEPRIL HCL 20 MG TABLET PO SCH (08:21)
[2018-04-26] MEDS ORDERED: DEXAMETHASONE 4 MG TABLET PO ONE (09:00)
[2018-04-26 11:40] VITALS: BP 157/97
[2018-04-26] MEDS: diphenhydrAMINE 25 MG CAP PO PRN (12:54)
[2018-04-26 18:05] VITALS: BP 163/70
[2018-04-26 18:21] VITALS: BP 176/74
[2018-04-26 18:37] VITALS: BP 186/80
--- NOTE | 2018-04-26 18:55 | NUR ---
PATIENT IN BED COMFORTABLY, NO SOB NOTED , BED IN LOW POSITION SIDE RAILS UP X2, CONTINUE HAVING BLOOD TRANSFUSION ON GOING WITH NO ADVERSE EFFECT NOTED AT THIS TIME. ALL NEEDS ATTENDED. CALL LIGHT WITH REACHED.
--- NOTE | 2018-04-26 19:30 | NUR ---
RECEIVED PATIENT IN BED, ONGOING WITH BLOOD TRANSFUSION TO THE [facility] MIDLINE. WITH NO ADVERSE EFFECTS NOTED. NO COMPLAINTS OF PAIN OR SOB. SAFETY MEASURES INITIATED. BED IS LOW AND LOCKED, CALL LIGHT IS WITHIN REACH. WILL CONTINUE TO MONITOR.
--- NOTE | 2018-04-26 19:41 | NUR ---
ADMINISTERED LABETALOL AND PHOSLO LATE BECAUSE PATIENT DIDN'T WANT TO TAKE MEDICATIONS DURING BLOOD TRANSFUSION. I LET THE PATIENT KNOW THAT HIS BP WAS HIGH AT 186/80 AND HR 76 AND HE THEN STATED HE WANTED TO TAKE HIS MEDICATIONS. WILL RECHECK BP AGAIN BEFORE GIVING SCHEDULED AMLODIPINE AT 2100.
[2018-04-26 21:19] VITALS: BP 172/69
[2018-04-27] MEDS: diphenhydrAMINE 25 MG CAP PO PRN (00:36)
[2018-04-27] MEDS: TEMAZEPAM 15 MG CAPSULE PO PRN (00:37)
[2018-04-27 06:19] VITALS: BP 174/76
--- NOTE | 2018-04-27 06:24 | NUR ---
PATIENT SLEPT WELL THROUGHOUT SHIFT. BLOOD TRANSFUSION WAS COMPLETED WITH NO ADVERSE EFFECTS. NO SIGNS OF ACUTE DISTRESS NOTED. NO COMPLAINTS OF PAIN OR SOB. MEDICATION GIVEN ORDERED.
[2018-04-27] MEDS: PANTOPRAZOLE SODIUM 40 MG TABLET.DR PO SCH (06:36)
[2018-04-27] MEDS: METOCLOPRAMIDE HCL 5 MG TABLET PO SCH ×3 (06:36→16:30)
--- NOTE | 2018-04-27 07:30 | NUR ---
Sleeping, appears comfortable
[2018-04-27] MEDS: CALCIUM ACETATE 667 MG CAPSULE PO SCH ×3 (10:37→17:00)
[2018-04-27] MEDS: FOLIC ACID/VITAMIN B COMP W-C TABLET PO SCH (10:37)
[2018-04-27] MEDS: PAROXETINE HCL 10 MG TABLET PO SCH (10:37)
[2018-04-27] MEDS: BENAZEPRIL HCL 20 MG TABLET PO SCH (10:38)
[2018-04-27] MEDS: AMLODIPINE 5 MG TABLET PO SCH (10:38)
[2018-04-27] MEDS: LABETALOL HCL 200 MG TABLET PO SCH ×3 (10:39→17:00)
[2018-04-27 11:22] VITALS: BP 172/80
--- NOTE | 2018-04-27 18:26 | NUR ---
With discharge order, self care, refused resources offered to him. Midline removed. DC instructions given, verbalized understanding. Went home per ambulatory per request, in fair condition, not in distress, afebrile.
== END 2018-04-27 18:20 | disposition home or self-care (01) | DRG 691 ==
LOC: ER 21:01 → MED 23:40 → MEDSURG3 04-26 10:08
PROVIDERS: ADMIT Internal Medicine Nephrology; ATTEND Internal Medicine
PROC: 5A1D70Z Performance of Urinary Filtration, Intermittent, Less than 6 Hours Per Day (ICD-10-PCS; 2018-04-16)
PROC: 30233N1 Transfusion of Nonautologous Red Blood Cells into Peripheral Vein, Percutaneous Approach (ICD-10-PCS; principal; 2018-04-18)
PROC: 05HY33Z Insertion of Infusion Device into Upper Vein, Percutaneous Approach (ICD-10-PCS; 2018-04-26)
DX: C90.00 Multiple myeloma not having achieved remission (principal); K85.90 Acute pancreatitis without necrosis or infection, unspecified; I13.11 Hypertensive heart and chronic kidney disease without heart failure, with stage 5 chronic kidney disease, or end stage renal disease; N25.0 Renal osteodystrophy; N25.81 Secondary hyperparathyroidism of renal origin; D63.0 Anemia in neoplastic disease; D63.1 Anemia in chronic kidney disease; F17.200 Nicotine dependence, unspecified, uncomplicated; D50.0 Iron deficiency anemia secondary to blood loss (chronic); N18.6 End stage renal disease; Z99.2 Dependence on renal dialysis; Z91.15 Patient's noncompliance with renal dialysis; G89.4 Chronic pain syndrome; Z91.19 Patient's noncompliance with other medical treatment and regimen; K21.9 Gastro-esophageal reflux disease without esophagitis; R19.7 Diarrhea, unspecified; Z68.20 Body mass index [BMI] 20.0-20.9, adult; K29.70 Gastritis, unspecified, without bleeding; Z79.899 Other long term (current) drug therapy; K86.2 Cyst of pancreas; R74.8 Abnormal levels of other serum enzymes; Z59.0 Homelessness
CPT/HCPCS: 36415; 36569; 70030-TC; 71045; 82784; 82785; 83690; 83735; 84100; 84132; 85025; 86850; 86900; 86901; 86920; 90937; 93005; A4663; G0378; J7050; J8540; J8597; P9016-BL; P9021; Q0162; Q0163

== ENCOUNTER 2018-04-30 20:42 | Inpatient (IN) | payer OTHER ==
[~2018-04-30] VITALS: Ht 170.2 cm; Wt 63.0 kg
[2018-04-30] MEDS ORDERED: PANTOPRAZOLE SODIUM IV 80 MG in IV DEXTROSE 5% 100 ML IV ONE (21:15)
--- NOTE | 2018-04-30 21:31 | NUR ---
Pt. ambulated into ED w/ c/o emesis w/ blood since this morning and pain in the epigastric area since this morning, pt. is currently being treated on hemodialysis and states he underwent HD treatment yesterday,
[2018-04-30] MEDS ORDERED: PANTOPRAZOLE SODIUM 40 MG VIAL ONE (21:42)
[2018-04-30] MEDS ORDERED: ONDANSETRON 4 MG/2 ML VIAL ONE (21:42)
[2018-04-30] MEDS ORDERED: ONDANSETRON ODT 4 MG TAB.RAPDIS SL ONE (21:45)
[2018-04-30] MEDS ORDERED: ONDANSETRON IV *ER 4 MG/2 ML VIAL IV ONE (21:45)
--- NOTE | 2018-04-30 21:52 | NUR ---
senior environmental technician. in w/ pt. for blood draw, specimens collected and sent to lab,
--- NOTE | 2018-04-30 21:56 | NUR ---
Pt. refused NG tube placement, covered w/ blanket, monitoring from nursing station,
[2018-04-30 21:59] LABS: BASOPHILS % (AUTO) 0.1 % (0.0-2.0); EOSINOPHILS % (AUTO) 0.3 % (0.0-7.0); HEMATOCRIT 30.2 % (36.7-47.1); HEMOGLOBIN 10.2 g/dL (12.5-16.3); LYMPHOCYTES # (AUTO) 0.8 K/uL (20.0-40.0); LYMPHOCYTES % (AUTO) 11.9 % (20.5-51.5); MEAN CORPUSCULAR HEMOGLOBIN 29.5 uug (23.8-33.4); MEAN CORPUSCULAR HGB CONC 34 g/dL (32.5-36.3); MEAN CORPUSCULAR VOLUME 87.6 fL (73.0-96.2); MONOCYTES # (AUTO) 0.6 K/uL (2.0-10.0); MONOCYTES % (AUTO) 9.3 % (0.0-11.0); NEUTROPHILS # (AUTO) 5.1 K/uL (1.8-8.9); NEUTROPHILS % (AUTO) 78.4 % (38.5-71.5); PLATELET COUNT (AUTO) 208 K/uL (152-348); RED BLOOD CELL COUNT(AUTO) 3.45 MIL/uL (4.06-5.63); WHITE BLOOD COUNT (AUTO) 6.6 K/uL (3.6-10.2)
[2018-04-30 22:05] LABS: POTASSIUM 4.7 mmol/L (3.5-5.1)
[2018-04-30 22:07] LABS: MAGNESIUM 2.4 mg/dL (1.8-2.4)
[2018-04-30 22:08] LABS: CREATININE 11.9 mg/dL (0.6-1.3)
[2018-04-30 22:10] LABS: BILIRUBIN,DIRECT 0.2 mg/dL (0.0-0.2); TOTAL PROTEIN, SERUM 10.9 g/dL (6.4-8.2)
[2018-04-30] MEDS ORDERED: CLONIDINE HCL 0.1 MG TABLET PO ONE (22:15)
[2018-04-30] MEDS ORDERED: predniSONE 10 MG TABLET ONE (22:15)
[2018-04-30] MEDS ORDERED: CLONIDINE HCL 0.1 MG TABLET ONE (22:21)
[2018-04-30 22:23] LABS: PHOSPHOROUS 8.9 mg/dL (2.5-4.9)
[2018-04-30] MEDS ORDERED: OXYCODONE/APAP 5-325 MG TABLET PO ONE (22:30)
--- NOTE | 2018-04-30 22:37 | NUR ---
Call placed to [employer], Jasmin MARIA) will be paged.
[2018-04-30] MEDS ORDERED: OXYCODONE/APAP 5-325 MG TABLET ONE (22:46)
--- NOTE | 2018-04-30 22:52 | NUR ---
Dr. Pelayo at [facility] called for consult,
--- NOTE | 2018-04-30 22:54 | NUR ---
Call place to [facility] Neph[facility], VALE speaking to Dr. Laguna.
--- NOTE | 2018-04-30 23:05 | NUR ---
Report given to Rhianna
--- NOTE | 2018-04-30 23:17 | NUR ---
MRSA specimen collected from nares and sent to lab,
--- NOTE | 2018-04-30 23:24 | NUR ---
Pt. taken off unit via stretcher, NAD
[2018-04-30 23:29] VITALS: BP 166/91
--- NOTE | 2018-04-30 23:45 | NUR ---
RECEIVED PATIENT VIA GURNEY FROM ER. A/O X4. PATIENT STATED HE HAS BEEN VOMITING SINCE EARLY AM. NO VOMITING NOTED AT THIS TIME. DENIES NAUSEA AT THIS TIME. BP ELEVATED 166/93, ASYMPTOMATIC. ALL OTHER VSS. WAITING FOR ADMISSION ORDERS FROM DR. DANIEL. NO C/O PAIN AT THIS TIME. PLACED ON TELE ORDERED, SR. VELAZQUEZ NOTED TO RIGHT THUMB #22 GAUGE. ORIENTED PATIENT TO ROOM AND CALL LIGHT. CALL LIGHT IN REACH. ALL NEEDS ATTENDED. WILL CONTINUE TO MONITOR AND ASSESS.
[2018-05-01] MEDS ORDERED: CLONIDINE HCL 0.2 MG TABLET PO PRN (01:00)
[2018-05-01] MEDS ORDERED: MAGNESIUM HYDROXIDE 30 ML LIQUID UDC PO PRN (01:00)
[2018-05-01] MEDS ORDERED: HYDROCODONE/APAP 5-325MG TABLET PO PRN (01:00)
[2018-05-01] MEDS ORDERED: Z GUARD REMEDY PASTE 57 GM TUBE TOP PRN (01:00)
[2018-05-01] MEDS ORDERED: ACETAMINOPHEN 325 MG TABLET PO PRN (01:00)
[2018-05-01 03:46] VITALS: BP 155/89
--- NOTE | 2018-05-01 06:04 | NUR ---
PATIENT ASLEEP IN BED. ON TELE SR. VS WNL. NO S/S OF ANY PAIN OR DISCOMFORT. CALL LIGHT IN REACH. ALL NEEDS ATTENDED.
[2018-05-01] MEDS: METOCLOPRAMIDE HCL 10 MG TABLET PO SCH ×3 (07:30→16:30)
--- NOTE | 2018-05-01 07:30 | NUR ---
PT AT THIS TIME IS RECEIVING DIALYSIS. MORNING MEDICATIONS HELD. PT NOT IN ANY DISTRESS AT THIS TIME. POTASSIUM 4.7. CONTINUE TO MONITOR PT.
[2018-05-01] MEDS: CALCIUM ACETATE 667 MG CAPSULE PO SCH ×3 (08:00→18:55)
[2018-05-01] MEDS: PAROXETINE HCL 10 MG TABLET PO SCH (09:00)
[2018-05-01] MEDS: LABETALOL HCL 200 MG TABLET PO SCH ×3 (09:00→18:55)
[2018-05-01] MEDS ORDERED: PANTOPRAZOLE SODIUM 40 MG TABLET.DR PO SCH (09:00)
[2018-05-01] MEDS: AMLODIPINE 5 MG TABLET PO SCH ×2 (09:00→17:00)
[2018-05-01 11:20] VITALS: BP 140/41
[2018-05-01] MEDS ORDERED: HYDROMORPHONE 1 MG/1 ML DISP.SYRIN IM ONE (11:30)
[2018-05-01] MEDS: SEVELAMER CARBONATE 800 MG TABLET PO SCH ×2 (12:00→18:56)
[2018-05-01] MEDS: BENAZEPRIL HCL 20 MG TABLET PO SCH (12:15)
[2018-05-01] MEDS: FOLIC ACID/VITAMIN B COMP W-C TABLET PO SCH (12:15)
[2018-05-01] MEDS: ONDANSETRON 4 MG/2 ML VIAL IV PRN (13:27)
--- NOTE | 2018-05-01 13:30 | NUR ---
PT C/O N/V 2 EMESIS 400CC, YELLOW WITH FOOD PARTICLES. ZOFRAN GIVEN. CONTINUE TO MONITOR PT.
--- NOTE | 2018-05-01 14:30 | NUR ---
REPORT GIVEN FROM MARCY TO TAKE OVER THE CARE OF THIS PATIENT. PATIENT ASLEEP IN BED, EASILY AROUSED. DENIES ANY DISTRESS OR PAIN AT THIS TIME. ALL NEEDS MET. WILL CONTINUE TO MONITOR.
[2018-05-01] MEDS: SUCRALFATE 1 G/10 ML LIQUID UDC GT SCH ×2 (16:30→20:18)
--- NOTE | 2018-05-01 19:49 | NUR ---
PATIENT IN STABLE CONDITION. VITAL SIGNS STABLE THROUGHOUT SHIFT. MET ALL NEEDS. PATIENT REFUSED MEDICATIONS CHARTED. SHIFT REPORT GIVEN
[2018-05-01 20:00] VITALS: BP 124/64
--- NOTE | 2018-05-01 20:00 | NUR ---
RECEIVED PATIENT AWAKE IN BED. A/O X4. NO C/O PAIN AT THIS TIME. VSS. CALL LIGHT IN REACH. ALL NEEDS ATTENDED. WILL CONTINUE TO MONITOR.
[2018-05-01] MEDS: PANTOPRAZOLE SODIUM 40 MG VIAL IV SCH (21:14)
[2018-05-02 03:28] VITALS: BP 141/87
--- NOTE | 2018-05-02 06:36 | NUR ---
PATIENT ASLEEP IN BED. NPO SINCE MIDNIGHT ORDERED FOR ABDOMINAL US IN AM. CALL LIGHT IN REACH. ALL NEEDS ATTENDED. WILL CONTINUE TO MONITOR AND ASSESS.
[2018-05-02] MEDS: SUCRALFATE 1 G/10 ML LIQUID UDC GT SCH ×5 (07:30→21:15)
[2018-05-02] MEDS: METOCLOPRAMIDE HCL 10 MG TABLET PO SCH ×3 (07:30→18:06)
[2018-05-02] MEDS: SEVELAMER CARBONATE 800 MG TABLET PO SCH ×3 (08:00→18:05)
[2018-05-02] MEDS: CALCIUM ACETATE 667 MG CAPSULE PO SCH ×3 (08:00→18:05)
--- NOTE | 2018-05-02 08:00 | NUR ---
RECEIVED PATIENT IN BED LAYING COMFORTABLY WITH NPO FOR ABDOMINAL US, NO SOB NOTED , NO PAIN NOTED, REFUSED DIALYSIS AND LABS .
[2018-05-02] MEDS: BENAZEPRIL HCL 20 MG TABLET PO SCH (09:00)
[2018-05-02] MEDS: FOLIC ACID/VITAMIN B COMP W-C TABLET PO SCH (09:00)
[2018-05-02] MEDS: LABETALOL HCL 200 MG TABLET PO SCH ×3 (09:00→18:06)
[2018-05-02] MEDS: PANTOPRAZOLE SODIUM 40 MG VIAL IV SCH ×2 (09:00→21:15)
[2018-05-02] MEDS: AMLODIPINE 5 MG TABLET PO SCH ×2 (09:00→18:06)
[2018-05-02] MEDS: PAROXETINE HCL 10 MG TABLET PO SCH (09:00)
[2018-05-02 11:16] VITALS: BP 175/111
[2018-05-02] MEDS: ONDANSETRON 4 MG/2 ML VIAL IV PRN (12:48)
[2018-05-02 15:00] LABS: BASOPHILS % (AUTO) 0.2 % (0.0-2.0); EOSINOPHILS # (AUTO) 0.1 K/uL (0.0-0.7); EOSINOPHILS % (AUTO) 1.8 % (0.0-7.0); HEMATOCRIT 29.1 % (36.7-47.1); HEMOGLOBIN 9.7 g/dL (12.5-16.3); LYMPHOCYTES # (AUTO) 1.7 K/uL (20.0-40.0); LYMPHOCYTES % (AUTO) 25.1 % (20.5-51.5); MEAN CORPUSCULAR HEMOGLOBIN 29.7 uug (23.8-33.4); MEAN CORPUSCULAR HGB CONC 34 g/dL (32.5-36.3); MEAN CORPUSCULAR VOLUME 88.6 fL (73.0-96.2); MONOCYTES # (AUTO) 0.7 K/uL (2.0-10.0); MONOCYTES % (AUTO) 10.5 % (0.0-11.0); NEUTROPHILS # (AUTO) 4.3 K/uL (1.8-8.9); NEUTROPHILS % (AUTO) 62.4 % (38.5-71.5); PLATELET COUNT (AUTO) 208 K/uL (152-348); RED BLOOD CELL COUNT(AUTO) 3.29 MIL/uL (4.06-5.63); WHITE BLOOD COUNT (AUTO) 6.9 K/uL (3.6-10.2)
[2018-05-02 15:13] LABS: MAGNESIUM 2.2 mg/dL (1.8-2.4); PHOSPHOROUS 6.3 mg/dL (2.5-4.9)
[2018-05-02 15:16] VITALS: BP 171/99
[2018-05-02 15:17] LABS: BILIRUBIN,TOTAL 0.8 mg/dL (0.2-1.0); TOTAL PROTEIN, SERUM 10.4 g/dL (6.4-8.2)
[2018-05-02 15:27] LABS: CREATININE 12.5 mg/dL (0.6-1.3)
--- NOTE | 2018-05-02 16:30 | NUR ---
RECEIVED NEW ORDERS FROM DR. KNUTSON , TO CHANGE DIET FROM NPO TO RENAL DIET.
--- NOTE | 2018-05-02 18:50 | NUR ---
PATIENT IN BED WATCHING TV, NO C/O PAIN OR DISCOMFORT NOTED AT THIS TIME. ALL NEEDS ATTENDED.CALL LIGHT WITHIN REACHED.
--- NOTE | 2018-05-02 19:25 | NUR ---
RECEIVED PT AWAKE, ALERT AND ORIENTEDX4. PT SHOWS NO SIGNS OF DISTRESS. IV INTACT. SAFETY AND COMFORT PROVIDED. ALL NEEDS ARE MET. WILL CONTINUE TO MONITOR.
[2018-05-02 20:21] VITALS: BP 172/96
[2018-05-02] MEDS: ZOLPIDEM 5 MG TABLET PO PRN (21:15)
--- NOTE | 2018-05-02 21:50 | NUR ---
PT REFUSED HIS CARAFATE. WILL CONTINUE TO MONITOR.
--- NOTE | 2018-05-02 21:59 | NUR ---
DR. RAMESH ORDERED BENADRYL 50MH PO Q6H PRN FOR ITCHINESS.
[2018-05-02] MEDS: diphenhydrAMINE 50 MG CAPSULE PO PRN (22:19)
--- NOTE | 2018-05-03 05:37 | NUR ---
UNEVENTFUL NOC, SLEPT AT LONG INTERVALS.NO ACUTE DISTRESS NOTED,
[2018-05-03 06:22] VITALS: BP 164/92
--- NOTE | 2018-05-03 07:22 | NUR ---
patient laying in bed comfortably, no sob or pain noted, bed in low position, side rails up x2 bed alarm on . continue plan of care. iv intact and patent.
[2018-05-03] MEDS: SUCRALFATE 1 G/10 ML LIQUID UDC GT SCH ×4 (07:30→21:00)
[2018-05-03] MEDS: METOCLOPRAMIDE HCL 10 MG TABLET PO SCH ×3 (07:56→16:30)
[2018-05-03] MEDS: CALCIUM ACETATE 667 MG CAPSULE PO SCH ×3 (07:56→17:00)
[2018-05-03] MEDS: SEVELAMER CARBONATE 800 MG TABLET PO SCH ×3 (07:57→18:00)
[2018-05-03] MEDS: AMLODIPINE 5 MG TABLET PO SCH ×2 (08:13→17:00)
[2018-05-03] MEDS: FOLIC ACID/VITAMIN B COMP W-C TABLET PO SCH (08:13)
[2018-05-03] MEDS: LABETALOL HCL 200 MG TABLET PO SCH ×3 (08:13→17:00)
[2018-05-03] MEDS: PAROXETINE HCL 10 MG TABLET PO SCH (08:14)
[2018-05-03] MEDS: BENAZEPRIL HCL 20 MG TABLET PO SCH (08:14)
[2018-05-03] MEDS: PANTOPRAZOLE SODIUM 40 MG VIAL IV SCH ×2 (08:16→21:15)
[2018-05-03 09:49] LABS: MAGNESIUM 2.4 mg/dL (1.8-2.4); PHOSPHOROUS 5.1 mg/dL (2.5-4.9); POTASSIUM 4.9 mmol/L (3.5-5.1)
[2018-05-03 09:59] LABS: CREATININE 14.9 mg/dL (0.6-1.3)
[2018-05-03 10:48] LABS: BASOPHILS % (AUTO) 0.4 % (0.0-2.0); EOSINOPHILS # (AUTO) 0.2 K/uL (0.0-0.7); EOSINOPHILS % (AUTO) 2.7 % (0.0-7.0); HEMATOCRIT 27.4 % (36.7-47.1); HEMOGLOBIN 9.2 g/dL (12.5-16.3); LYMPHOCYTES # (AUTO) 1.8 K/uL (20.0-40.0); LYMPHOCYTES % (AUTO) 25.6 % (20.5-51.5); MEAN CORPUSCULAR HGB CONC 34 g/dL (32.5-36.3); MEAN CORPUSCULAR VOLUME 89.1 fL (73.0-96.2); MONOCYTES # (AUTO) 0.7 K/uL (2.0-10.0); MONOCYTES % (AUTO) 9.9 % (0.0-11.0); NEUTROPHILS # (AUTO) 4.3 K/uL (1.8-8.9); NEUTROPHILS % (AUTO) 61.4 % (38.5-71.5); PLATELET COUNT (AUTO) 218 K/uL (152-348); RED BLOOD CELL COUNT(AUTO) 3.07 MIL/uL (4.06-5.63); WHITE BLOOD COUNT (AUTO) 6.9 K/uL (3.6-10.2)
[2018-05-03 11:26] VITALS: BP 143/81
--- NOTE | 2018-05-03 19:00 | NUR ---
patient laying in bed comfortably, on going with dialysis, no sob or pain noted, bed in low position, side rails up x2 bed alarm on . continue plan of care. iv intact and patent.
--- NOTE | 2018-05-03 19:45 | NUR ---
RECEIVED PATIENT AWAKE IN BED. PATIENT IS RECEIVING HD. HD NURSE AT BEDSIDE. PATIENT IS A/O X4. NO C/O PAIN AT THIS TIME. NO RESP. DISTRESS NOTED. CALL LIGHT IN REACH. ALL NEEDS ATTENDED. WILL CONTINUE TO MONITOR AND ASSESS.
[2018-05-03 20:31] VITALS: BP 105/63
[2018-05-04] MEDS: ZOLPIDEM 5 MG TABLET PO PRN (01:47)
--- NOTE | 2018-05-04 05:50 | NUR ---
INFORMATION SENT: JENNIFER [employer] NOTES 05/03,05/02,CONSULTATION,UR 05/03 [place]URANCE NAME:[facility] [place] FAX NUMBER: [phone] / [phone] FAX SENT
[2018-05-04 06:00] VITALS: BP 140/72
--- NOTE | 2018-05-04 06:49 | NUR ---
PATIENT ASLEEP IN BED. SLEPT WELL. NO C/O PAIN. CALL LIGHT IN REACH, ALL NEEDS ATTENDED. WILL CONTINUE TO MONITOR.
[2018-05-04] MEDS: METOCLOPRAMIDE HCL 10 MG TABLET PO SCH ×4 (07:30→16:56)
[2018-05-04] MEDS: SUCRALFATE 1 G/10 ML LIQUID UDC GT SCH ×6 (07:30→21:32)
[2018-05-04] MEDS: CALCIUM ACETATE 667 MG CAPSULE PO SCH ×3 (08:00→17:00)
[2018-05-04] MEDS: SEVELAMER CARBONATE 800 MG TABLET PO SCH ×3 (08:00→18:00)
--- NOTE | 2018-05-04 08:50 | NUR ---
PATIENT ONGOING HD. AM MEDS HELD. WILL CONTINUE TO MONITOR CLOSELY.
[2018-05-04] MEDS: PANTOPRAZOLE SODIUM 40 MG VIAL IV SCH ×2 (09:00→21:25)
[2018-05-04] MEDS: AMLODIPINE 5 MG TABLET PO SCH ×2 (09:00→17:00)
[2018-05-04] MEDS: FOLIC ACID/VITAMIN B COMP W-C TABLET PO SCH (09:00)
[2018-05-04] MEDS: LABETALOL HCL 200 MG TABLET PO SCH ×3 (09:00→17:00)
[2018-05-04] MEDS: PAROXETINE HCL 10 MG TABLET PO SCH (09:00)
[2018-05-04] MEDS: BENAZEPRIL HCL 20 MG TABLET PO SCH (09:00)
[2018-05-04] MEDS ORDERED: EPOETIN ALFA 10,000 UNITS/ML VIAL SQ ONE (11:30)
[2018-05-04] MEDS: ONDANSETRON 4 MG/2 ML VIAL IV PRN ×2 (12:15→19:15)
[2018-05-04 15:31] VITALS: BP 161/98
[2018-05-04] MEDS: diphenhydrAMINE 50 MG CAPSULE PO PRN (16:40)
--- NOTE | 2018-05-04 19:20 | NUR ---
RECEIVED PT AWAKE, ALERT, ORIENTEDX4. PT SHOWS NO SIGNS OF ACUTE DISTRESS. IV INTACT AND PATENT. SAFETY AND COMFORT PROVIDED. WILL CONTINUE TO MONITOR.
[2018-05-04 20:52] VITALS: BP 171/102
--- NOTE | 2018-05-05 04:41 | NUR ---
INFORMATION SENT: JENNIFER YOUSSEF NOTES 05/04,CONSULTATION,UR 05/04 INSURANCE NAME: [facility] [place] FAX NUMBER: [phone] / [phone] FAX SENT
--- NOTE | 2018-05-05 06:43 | NUR ---
PT SLEPT THROUGHOUT THE SHIFT . PT SHOWS NO SIGNS OF ACUTE DISTRESS. IV INTACT . PRESCRIBED MEDICATION GIVEN AND PT TOLERATED IT WELL. SAFETY AND COMFORT PROVIDED. ALL NEEDS ARE MET. WILL ENDORSE ACCORDINGLY TO INCOMING NURSE FOR CONTINUITY OF CARE
[2018-05-05] MEDS: METOCLOPRAMIDE HCL 10 MG TABLET PO SCH ×3 (06:51→16:19)
[2018-05-05] MEDS: SUCRALFATE 1 G/10 ML LIQUID UDC GT SCH ×3 (06:51→16:19)
--- NOTE | 2018-05-05 06:51 | NUR ---
PT REFUSED CARAFATE FOR THE WHOLE SHIFT. PT STABLE. WILL ENDORSE TO INCOMING NURSE.
[2018-05-05] MEDS: CALCIUM ACETATE 667 MG CAPSULE PO SCH ×3 (08:00→16:20)
[2018-05-05] MEDS: FOLIC ACID/VITAMIN B COMP W-C TABLET PO SCH (08:44)
[2018-05-05] MEDS: AMLODIPINE 5 MG TABLET PO SCH ×2 (08:44→16:19)
[2018-05-05] MEDS: SEVELAMER CARBONATE 800 MG TABLET PO SCH ×2 (08:44→12:00)
[2018-05-05] MEDS: LABETALOL HCL 200 MG TABLET PO SCH ×3 (08:45→16:20)
[2018-05-05] MEDS: BENAZEPRIL HCL 20 MG TABLET PO SCH (08:49)
[2018-05-05] MEDS: PAROXETINE HCL 10 MG TABLET PO SCH (08:49)
[2018-05-05] MEDS: PANTOPRAZOLE SODIUM 40 MG VIAL IV SCH (08:50)
[2018-05-05 13:52] VITALS: BP 166/99
[2018-05-05 16:20] VITALS: BP 166/99
--- NOTE | 2018-05-05 17:29 | NUR ---
dc orders received noted and carried out,d/c instruction and education given to the pt,d/c vimal per md orders,pt left the facility via walking through the hospital
--- NOTE | 2018-05-06 04:33 | NUR ---
INFORMATION SENT: JENNIFER YOUSSEF NOTES 05/05,DISCHARGE SUMMARY,UR 05/05 [place]URANCE NAME: [place] [facility] [place] FAX NUMBER: [phone] / [phone] FAX SENT
== END 2018-05-05 17:20 | disposition home or self-care (01) | DRG 241 ==
LOC: ER 20:45 → TELE3 23:18 → MEDSURG3 05-01 07:00
PROVIDERS: ADMIT Internal Medicine; ATTEND Internal Medicine Nephrology
PROC: 5A1D70Z Performance of Urinary Filtration, Intermittent, Less than 6 Hours Per Day (ICD-10-PCS; principal; 2018-05-01)
DX: K29.81 Duodenitis with bleeding (principal); C90.00 Multiple myeloma not having achieved remission; I13.11 Hypertensive heart and chronic kidney disease without heart failure, with stage 5 chronic kidney disease, or end stage renal disease; N25.81 Secondary hyperparathyroidism of renal origin; E83.39 Other disorders of phosphorus metabolism; E83.52 Hypercalcemia; N18.6 End stage renal disease; E87.1 Hypo-osmolality and hyponatremia; K21.0 Gastro-esophageal reflux disease with esophagitis; G89.4 Chronic pain syndrome; Z99.2 Dependence on renal dialysis; D63.1 Anemia in chronic kidney disease; E87.5 Hyperkalemia; R11.10 Vomiting, unspecified; Z91.19 Patient's noncompliance with other medical treatment and regimen; F17.200 Nicotine dependence, unspecified, uncomplicated; N25.0 Renal osteodystrophy; D64.9 Anemia, unspecified
CPT/HCPCS: 36415; 70030-TC; 71045; 76700; 83690; 83735; 84100; 85025; 85730; 86850; 86900; 86901; 90937; 93005; A4663; C9113; G0378; J0885; J1170; J2405; J7060; J7512; J8597; Q0163

== ENCOUNTER 2018-05-10 17:29 | Emergency (ER) | payer OTHER ==
[~2018-05-10] VITALS: Ht 170.2 cm; Wt 73.5 kg
[~2018-05-10 17:29] MED LIST changes: -CALC500T13 PO
--- NOTE | 2018-05-10 18:59 | NUR ---
Assumed care of patient. No acute distress noted. VSS
[2018-05-10 19:31] LABS: BASOPHILS % (AUTO) 0.6 % (0.0-2.0); EOSINOPHILS # (AUTO) 0.2 K/uL (0.0-0.7); EOSINOPHILS % (AUTO) 2.7 % (0.0-7.0); HEMATOCRIT 25.8 % (36.7-47.1); HEMOGLOBIN 8.6 g/dL (12.5-16.3); LYMPHOCYTES # (AUTO) 1.3 K/uL (20.0-40.0); LYMPHOCYTES % (AUTO) 22.5 % (20.5-51.5); MEAN CORPUSCULAR HGB CONC 34 g/dL (32.5-36.3); MEAN CORPUSCULAR VOLUME 89.5 fL (73.0-96.2); MONOCYTES # (AUTO) 0.6 K/uL (2.0-10.0); MONOCYTES % (AUTO) 9.9 % (0.0-11.0); NEUTROPHILS # (AUTO) 3.8 K/uL (1.8-8.9); NEUTROPHILS % (AUTO) 64.3 % (38.5-71.5); PLATELET COUNT (AUTO) 218 K/uL (152-348); RED BLOOD CELL COUNT(AUTO) 2.88 MIL/uL (4.06-5.63)
[2018-05-10 19:46] LABS: POTASSIUM 5.4 mmol/L (3.5-5.1)
[2018-05-10 19:49] LABS: CREATININE 12.8 mg/dL (0.6-1.3)
[2018-05-10 19:53] LABS: BILIRUBIN,TOTAL 0.8 mg/dL (0.2-1.0); TOTAL PROTEIN, SERUM 9.9 g/dL (6.4-8.2)
--- NOTE | 2018-05-10 20:05 | NUR ---
Patient in bed, no acute distress noted. VSS. Ambulated to restroom with stable gait.
[2018-05-10 20:09] LABS: BILIRUBIN,DIRECT 0.2 mg/dL (0.0-0.2)
[2018-05-10] MEDS ORDERED: GABAPENTIN 300 MG CAPSULE ONE (20:19)
[2018-05-10 20:22] VITALS: BP 121/92
[2018-05-10] MEDS ORDERED: GABAPENTIN 300 MG CAPSULE PO ONE (20:30)
== END 2018-05-10 20:24 | disposition home or self-care (01) ==
LOC: ER 17:30
DX: G89.29 Other chronic pain (principal); M79.10 Myalgia, unspecified site; I12.0 Hypertensive chronic kidney disease with stage 5 chronic kidney disease or end stage renal disease; N18.6 End stage renal disease; F12.10 Cannabis abuse, uncomplicated; Z99.2 Dependence on renal dialysis; Z86.2 Personal history of diseases of the blood and blood-forming organs and certain disorders involving the immune mechanism; Z88.8 Allergy status to other drugs, medicaments and biological substances; Z79.899 Other long term (current) drug therapy
CPT/HCPCS: 36415; 70030-TC; 71045; 85025; 93005; A4663

== ENCOUNTER 2018-05-13 00:38 | Inpatient (IN) | payer OTHER ==
[~2018-05-13] VITALS: Ht 165.1 cm; Wt 66.2 kg
[2018-05-13] MEDS ORDERED: ONDANSETRON 4 MG/2 ML VIAL ONE (02:55)
[2018-05-13] MEDS ORDERED: CLONIDINE HCL 0.2 MG TABLET ONE (02:55)
[2018-05-13] MEDS ORDERED: HYDROMORPHONE 1 MG/1 ML DISP.SYRIN ONE (02:56)
[2018-05-13] MEDS ORDERED: ONDANSETRON 4 MG/2 ML VIAL IV ONE (03:00)
[2018-05-13] MEDS ORDERED: CLONIDINE HCL 0.2 MG TABLET PO ONE (03:00)
[2018-05-13] MEDS ORDERED: HYDROMORPHONE 1 MG/1 ML DISP.SYRIN IV ONE (03:00)
[2018-05-13 03:15] LABS: BASOPHILS % (AUTO) 0.3 % (0.0-2.0); EOSINOPHILS # (AUTO) 0.2 K/uL (0.0-0.7); EOSINOPHILS % (AUTO) 2.5 % (0.0-7.0); HEMATOCRIT 23.8 % (36.7-47.1); LYMPHOCYTES # (AUTO) 1.5 K/uL (20.0-40.0); MEAN CORPUSCULAR HEMOGLOBIN 30.1 uug (23.8-33.4); MEAN CORPUSCULAR HGB CONC 34 g/dL (32.5-36.3); MONOCYTES # (AUTO) 0.6 K/uL (2.0-10.0); MONOCYTES % (AUTO) 8.7 % (0.0-11.0); NEUTROPHILS # (AUTO) 4.7 K/uL (1.8-8.9); NEUTROPHILS % (AUTO) 66.5 % (38.5-71.5); PLATELET COUNT (AUTO) 187 K/uL (152-348); RED BLOOD CELL COUNT(AUTO) 2.64 MIL/uL (4.06-5.63)
[2018-05-13 03:34] LABS: POTASSIUM 6.9 mmol/L (3.5-5.1)
[2018-05-13 03:35] LABS: CREATININE 17.7 mg/dL (0.6-1.3)
[2018-05-13 03:41] LABS: BILIRUBIN,DIRECT 0.2 mg/dL (0.0-0.2); BILIRUBIN,TOTAL 0.7 mg/dL (0.2-1.0); TOTAL PROTEIN, SERUM 9.9 g/dL (6.4-8.2)
[2018-05-13] MEDS ORDERED: DEXTROSE 50% 50 ML DISP.SYRIN IV ONE (03:45)
[2018-05-13] MEDS ORDERED: INSULIN REGULAR, HUMAN 300 UNIT/3 ML VIAL IV ONE (03:45)
[2018-05-13] MEDS ORDERED: ALBUTEROL SULFATE 2.5 MG/3 ML NEBU NEB ONE (03:45)
[2018-05-13] MEDS ORDERED: ALBUTEROL SULFATE 2.5 MG/3 ML NEBU ONE (03:53)
[2018-05-13] MEDS ORDERED: ALBUTEROL SULFATE 2.5 MG/ 0.5 ML NEBU ONE (03:54)
[2018-05-13] MEDS ORDERED: DEXTROSE 50% 50 ML DISP.SYRIN ONE (04:00)
[2018-05-13] MEDS ORDERED: INSULIN NPH 1,000 UNITS/10 ML VIAL SQ ONE (04:02)
[2018-05-13] MEDS ORDERED: INSULIN REGULAR, HUMAN 300 UNIT/3 ML VIAL ONE (04:03)
[2018-05-13 08:00] VITALS: BP 194/106
[2018-05-13 08:05] LABS: BASOPHILS % (AUTO) 0.2 % (0.0-2.0); EOSINOPHILS # (AUTO) 0.1 K/uL (0.0-0.7); EOSINOPHILS % (AUTO) 1.7 % (0.0-7.0); HEMATOCRIT 25.1 % (36.7-47.1); HEMOGLOBIN 8.4 g/dL (12.5-16.3); LYMPHOCYTES # (AUTO) 0.8 K/uL (20.0-40.0); LYMPHOCYTES % (AUTO) 11.2 % (20.5-51.5); MEAN CORPUSCULAR HEMOGLOBIN 30.1 uug (23.8-33.4); MEAN CORPUSCULAR HGB CONC 33 g/dL (32.5-36.3); MEAN CORPUSCULAR VOLUME 90.2 fL (73.0-96.2); MONOCYTES # (AUTO) 0.6 K/uL (2.0-10.0); MONOCYTES % (AUTO) 8.5 % (0.0-11.0); NEUTROPHILS # (AUTO) 5.4 K/uL (1.8-8.9); NEUTROPHILS % (AUTO) 78.4 % (38.5-71.5); PLATELET COUNT (AUTO) 184 K/uL (152-348); RED BLOOD CELL COUNT(AUTO) 2.78 MIL/uL (4.06-5.63); WHITE BLOOD COUNT (AUTO) 6.8 K/uL (3.6-10.2)
[2018-05-13] MEDS: PANTOPRAZOLE SODIUM 40 MG TABLET.DR PO SCH (08:06)
[2018-05-13] MEDS: METOCLOPRAMIDE HCL 10 MG TABLET PO SCH ×3 (08:06→16:30)
[2018-05-13] MEDS ORDERED: BENAZEPRIL HCL 20 MG TABLET PO SCH (09:00)
[2018-05-13] MEDS: CALCIUM ACETATE 667 MG CAPSULE PO SCH ×3 (09:24→17:00)
[2018-05-13] MEDS: FOLIC ACID/VITAMIN B COMP W-C TABLET PO SCH (09:25)
[2018-05-13] MEDS: LABETALOL HCL 200 MG TABLET PO SCH ×3 (09:25→17:00)
[2018-05-13] MEDS: PAROXETINE HCL 10 MG TABLET PO SCH (09:25)
[2018-05-13] MEDS: AMLODIPINE 5 MG TABLET PO SCH ×2 (09:25→17:00)
[2018-05-13 11:50] VITALS: BP 182/96
[2018-05-13] MEDS ORDERED: EPOETIN ALFA 10,000 UNITS/ML VIAL SQ ONE (12:00)
[2018-05-13] MEDS: CLONIDINE-TTS 3 PATCH TD SCH (14:45)
[2018-05-13 15:34] VITALS: BP 182/103
[2018-05-13] MEDS: ONDANSETRON 4 MG/2 ML VIAL IV PRN (16:05)
[2018-05-13 20:00] VITALS: BP 185/108
[2018-05-13] MEDS: CLONIDINE HCL 0.2 MG TABLET PO PRN (21:45)
[2018-05-13] MEDS: BUTALB/ACETAMINOPHEN/CAFFEINE TABLET PO PRN (23:07)
[2018-05-14 06:28] VITALS: BP 174/100
[2018-05-14] MEDS: METOCLOPRAMIDE HCL 10 MG TABLET PO SCH ×3 (06:30→17:33)
[2018-05-14] MEDS: PANTOPRAZOLE SODIUM 40 MG TABLET.DR PO SCH (06:30)
[2018-05-14 06:58] LABS: BASOPHILS % (AUTO) 0.2 % (0.0-2.0); EOSINOPHILS # (AUTO) 0.2 K/uL (0.0-0.7); EOSINOPHILS % (AUTO) 3.9 % (0.0-7.0); HEMATOCRIT 23.7 % (36.7-47.1); HEMOGLOBIN 7.8 g/dL (12.5-16.3); LYMPHOCYTES # (AUTO) 0.8 K/uL (20.0-40.0); LYMPHOCYTES % (AUTO) 20.7 % (20.5-51.5); MEAN CORPUSCULAR HEMOGLOBIN 29.7 uug (23.8-33.4); MEAN CORPUSCULAR HGB CONC 33 g/dL (32.5-36.3); MEAN CORPUSCULAR VOLUME 89.8 fL (73.0-96.2); MONOCYTES # (AUTO) 0.4 K/uL (2.0-10.0); MONOCYTES % (AUTO) 9.6 % (0.0-11.0); NEUTROPHILS # (AUTO) 2.7 K/uL (1.8-8.9); NEUTROPHILS % (AUTO) 65.6 % (38.5-71.5); PLATELET COUNT (AUTO) 178 K/uL (152-348); RED BLOOD CELL COUNT(AUTO) 2.64 MIL/uL (4.06-5.63); WHITE BLOOD COUNT (AUTO) 4.1 K/uL (3.6-10.2)
[2018-05-14 07:15] LABS: BILIRUBIN,TOTAL 0.8 mg/dL (0.2-1.0); MAGNESIUM 2.5 mg/dL (1.8-2.4); POTASSIUM 5.3 mmol/L (3.5-5.1); TOTAL PROTEIN, SERUM 9.3 g/dL (6.4-8.2)
[2018-05-14 07:17] LABS: CREATININE 13.3 mg/dL (0.6-1.3); PHOSPHOROUS 8.2 mg/dL (2.5-4.9)
[2018-05-14] MEDS: PAROXETINE HCL 10 MG TABLET PO SCH (09:35)
[2018-05-14] MEDS: CALCIUM ACETATE 667 MG CAPSULE PO SCH ×3 (09:35→17:33)
[2018-05-14] MEDS: LABETALOL HCL 200 MG TABLET PO SCH ×3 (09:35→17:33)
[2018-05-14] MEDS: FOLIC ACID/VITAMIN B COMP W-C TABLET PO SCH (09:35)
[2018-05-14] MEDS: AMLODIPINE 5 MG TABLET PO SCH ×2 (09:36→17:33)
[2018-05-14 11:20] VITALS: BP 176/112
[2018-05-14 15:30] VITALS: BP 155/86
[2018-05-14 20:14] VITALS: BP 179/104
[2018-05-14] MEDS ORDERED: diphenhydrAMINE 50 MG CAPSULE PO ONE (23:45)
[2018-05-15] MEDS: CLONIDINE HCL 0.2 MG TABLET PO PRN ×2 (04:14→11:26)
[2018-05-15 04:53] VITALS: BP 207/119
[2018-05-15] MEDS: PANTOPRAZOLE SODIUM 40 MG TABLET.DR PO SCH (06:24)
[2018-05-15 06:56] LABS: BASOPHILS % (AUTO) 0.5 % (0.0-2.0); EOSINOPHILS # (AUTO) 0.1 K/uL (0.0-0.7); EOSINOPHILS % (AUTO) 3.9 % (0.0-7.0); HEMATOCRIT 23.8 % (36.7-47.1); LYMPHOCYTES # (AUTO) 1.1 K/uL (20.0-40.0); LYMPHOCYTES % (AUTO) 28.7 % (20.5-51.5); MEAN CORPUSCULAR HEMOGLOBIN 29.9 uug (23.8-33.4); MEAN CORPUSCULAR HGB CONC 34 g/dL (32.5-36.3); MEAN CORPUSCULAR VOLUME 89.3 fL (73.0-96.2); MONOCYTES # (AUTO) 0.4 K/uL (2.0-10.0); MONOCYTES % (AUTO) 11.1 % (0.0-11.0); NEUTROPHILS # (AUTO) 2.1 K/uL (1.8-8.9); NEUTROPHILS % (AUTO) 55.8 % (38.5-71.5); PLATELET COUNT (AUTO) 162 K/uL (152-348); RED BLOOD CELL COUNT(AUTO) 2.66 MIL/uL (4.06-5.63); WHITE BLOOD COUNT (AUTO) 3.8 K/uL (3.6-10.2)
[2018-05-15 06:57] LABS: BILIRUBIN,TOTAL 0.9 mg/dL (0.2-1.0); MAGNESIUM 2.2 mg/dL (1.8-2.4); PHOSPHOROUS 6.9 mg/dL (2.5-4.9); TOTAL PROTEIN, SERUM 9.4 g/dL (6.4-8.2)
[2018-05-15] MEDS: METOCLOPRAMIDE HCL 10 MG TABLET PO SCH ×3 (07:30→17:54)
[2018-05-15] MEDS: FOLIC ACID/VITAMIN B COMP W-C TABLET PO SCH (08:47)
[2018-05-15] MEDS: LABETALOL HCL 200 MG TABLET PO SCH ×4 (08:48→17:56)
[2018-05-15] MEDS: PAROXETINE HCL 10 MG TABLET PO SCH (08:48)
[2018-05-15] MEDS: AMLODIPINE 5 MG TABLET PO SCH ×3 (08:48→17:56)
[2018-05-15] MEDS: CALCIUM ACETATE 667 MG CAPSULE PO SCH ×3 (08:48→17:55)
[2018-05-15 09:00] VITALS: BP 161/102
[2018-05-15 11:14] VITALS: BP 174/100
[2018-05-15 11:40] VITALS: BP 181/101
[2018-05-15 15:15] VITALS: BP 148/93
[2018-05-15 20:10] VITALS: BP 149/84
[2018-05-15] MEDS: ZOLPIDEM 5 MG TABLET PO PRN (23:50)
[2018-05-16 06:06] VITALS: BP 145/88
[2018-05-16] MEDS: PANTOPRAZOLE SODIUM 40 MG TABLET.DR PO SCH (06:16)
[2018-05-16] MEDS: METOCLOPRAMIDE HCL 10 MG TABLET PO SCH ×3 (06:32→23:19)
[2018-05-16] MEDS: LABETALOL HCL 200 MG TABLET PO SCH ×3 (09:00→23:18)
[2018-05-16] MEDS: AMLODIPINE 5 MG TABLET PO SCH ×2 (09:00→23:19)
[2018-05-16] MEDS: CALCIUM ACETATE 667 MG CAPSULE PO SCH ×3 (09:00→23:17)
[2018-05-16 10:57] VITALS: BP 139/89
[2018-05-16 15:02] VITALS: BP 155/99
[2018-05-16 21:45] VITALS: BP 174/97
[2018-05-16] MEDS: FOLIC ACID/VITAMIN B COMP W-C TABLET PO SCH (23:19)
[2018-05-16] MEDS: PAROXETINE HCL 10 MG TABLET PO SCH (23:22)
[2018-05-17] VITALS (7 sets, daily range): BP systolic 162–178; BP diastolic 94–103
[2018-05-17] MEDS: ZOLPIDEM 5 MG TABLET PO PRN ×2 (00:38→22:32)
[2018-05-17] MEDS: PANTOPRAZOLE SODIUM 40 MG TABLET.DR PO SCH (06:52)
[2018-05-17] MEDS: METOCLOPRAMIDE HCL 10 MG TABLET PO SCH ×3 (07:30→16:30)
[2018-05-17] MEDS: AMLODIPINE 5 MG TABLET PO SCH ×3 (09:00→20:35)
[2018-05-17] MEDS: FOLIC ACID/VITAMIN B COMP W-C TABLET PO SCH (09:00)
[2018-05-17] MEDS: CALCIUM ACETATE 667 MG CAPSULE PO SCH ×3 (09:00→14:57)
[2018-05-17] MEDS: LABETALOL HCL 200 MG TABLET PO SCH ×4 (09:00→20:35)
[2018-05-17] MEDS: PAROXETINE HCL 10 MG TABLET PO SCH (09:00)
[2018-05-17 09:59] LABS: BASOPHILS % (AUTO) 0.3 % (0.0-2.0); EOSINOPHILS # (AUTO) 0.2 K/uL (0.0-0.7); EOSINOPHILS % (AUTO) 3.7 % (0.0-7.0); LYMPHOCYTES # (AUTO) 1.3 K/uL (20.0-40.0); LYMPHOCYTES % (AUTO) 30.8 % (20.5-51.5); MEAN CORPUSCULAR HEMOGLOBIN 29.9 uug (23.8-33.4); MEAN CORPUSCULAR HGB CONC 34 g/dL (32.5-36.3); MEAN CORPUSCULAR VOLUME 88.5 fL (73.0-96.2); MONOCYTES # (AUTO) 0.4 K/uL (2.0-10.0); MONOCYTES % (AUTO) 8.6 % (0.0-11.0); NEUTROPHILS # (AUTO) 2.4 K/uL (1.8-8.9); NEUTROPHILS % (AUTO) 56.6 % (38.5-71.5); PLATELET COUNT (AUTO) 123 K/uL (152-348); RED BLOOD CELL COUNT(AUTO) 2.27 MIL/uL (4.06-5.63); WHITE BLOOD COUNT (AUTO) 4.3 K/uL (3.6-10.2)
[2018-05-17 10:05] LABS: HEMOGLOBIN 6.8 g/dL (12.5-16.3)
[2018-05-17 10:06] LABS: HEMATOCRIT 20.1 % (36.7-47.1)
[2018-05-17 10:28] LABS: BILIRUBIN,TOTAL 0.7 mg/dL (0.2-1.0); MAGNESIUM 2.5 mg/dL (1.8-2.4); PHOSPHOROUS 6.6 mg/dL (2.5-4.9); POTASSIUM 5.9 mmol/L (3.5-5.1); TOTAL PROTEIN, SERUM 9.2 g/dL (6.4-8.2)
[2018-05-17 10:32] LABS: CREATININE 13.1 mg/dL (0.6-1.3)
[2018-05-17 11:16] LABS: EOSINOPHILS % (MANUAL) 4 % (0-8); LYMPHOCYTES % (MANUAL) 27 % (20-40); MONOCYTES % (MANUAL) 9 % (2-10); NEUTROPHILS % (MANUAL) 60 % (42-75)
[2018-05-17] MEDS: PANTOPRAZOLE SODIUM 40 MG VIAL IV SCH ×3 (15:00→20:35)
[2018-05-18] VITALS (7 sets, daily range): BP systolic 144–162; BP diastolic 80–98
[2018-05-18] MEDS ORDERED: DESMOPRESSIN INJ 20 MCG in IV NORMAL SALINE 50 ML IV SCH ×2
[2018-05-18] MEDS ORDERED: DESMOPRESSIN 4 MCG/1 ML VIAL ONE (00:38)
[2018-05-18 06:45] LABS: BASOPHILS % (AUTO) 0.1 % (0.0-2.0); EOSINOPHILS # (AUTO) 0.1 K/uL (0.0-0.7); EOSINOPHILS % (AUTO) 2.6 % (0.0-7.0); MEAN CORPUSCULAR HEMOGLOBIN 30.3 uug (23.8-33.4); MEAN CORPUSCULAR HGB CONC 34 g/dL (32.5-36.3); MEAN CORPUSCULAR VOLUME 88.5 fL (73.0-96.2); MONOCYTES # (AUTO) 0.4 K/uL (2.0-10.0); NEUTROPHILS % (AUTO) 66.3 % (38.5-71.5); PLATELET COUNT (AUTO) 120 K/uL (152-348); WHITE BLOOD COUNT (AUTO) 4.5 K/uL (3.6-10.2)
[2018-05-18 06:49] LABS: HEMATOCRIT 20.8 % (36.7-47.1); HEMOGLOBIN 7.1 g/dL (12.5-16.3); RED BLOOD CELL COUNT(AUTO) 2.35 MIL/uL (4.06-5.63)
[2018-05-18 07:01] LABS: MAGNESIUM 2.4 mg/dL (1.8-2.4); PHOSPHOROUS 6.7 mg/dL (2.5-4.9); POTASSIUM 5.1 mmol/L (3.5-5.1)
[2018-05-18 07:03] LABS: CREATININE 9.7 mg/dL (0.6-1.3)
[2018-05-18] MEDS: AMLODIPINE 5 MG TABLET PO SCH ×3 (09:23→18:23)
[2018-05-18] MEDS: LABETALOL HCL 200 MG TABLET PO SCH ×4 (09:23→18:25)
[2018-05-18] MEDS: PAROXETINE HCL 10 MG TABLET PO SCH (09:23)
[2018-05-18] MEDS: FOLIC ACID/VITAMIN B COMP W-C TABLET PO SCH (09:23)
[2018-05-18] MEDS: CALCIUM ACETATE 667 MG CAPSULE PO SCH ×4 (09:23→18:23)
[2018-05-18] MEDS: PANTOPRAZOLE SODIUM 40 MG VIAL IV SCH ×2 (09:24→20:57)
[2018-05-18] MEDS: METOCLOPRAMIDE HCL 10 MG TABLET PO SCH ×3 (09:28→16:30)
[2018-05-18] MEDS ORDERED: HYDROMORPHONE 1 MG/1 ML DISP.SYRIN IV ONE (16:45)
[2018-05-18] MEDS ORDERED: DESMOPRESSIN INJ 20 MCG in IV NORMAL SALINE 50 ML IV ONE (17:45)
[2018-05-18] MEDS: ONDANSETRON 4 MG/2 ML VIAL IV PRN ×2 (18:12→23:47)
[2018-05-18] MEDS: ZOLPIDEM 5 MG TABLET PO PRN (23:55)
[2018-05-18] MEDS: ENALAPRILAT DIHYDRATE 1.25 MG/1 ML VIAL IV PRN (23:55)
[2018-05-19] VITALS (7 sets, daily range): BP systolic 110–180; BP diastolic 61–109
[2018-05-19] MEDS: BUTALB/ACETAMINOPHEN/CAFFEINE TABLET PO PRN ×3 (03:08→23:16)
[2018-05-19] MEDS: FOLIC ACID/VITAMIN B COMP W-C TABLET PO SCH (08:43)
[2018-05-19] MEDS: PANTOPRAZOLE SODIUM 40 MG VIAL IV SCH (08:43)
[2018-05-19] MEDS: PAROXETINE HCL 10 MG TABLET PO SCH (08:43)
[2018-05-19] MEDS: CALCIUM ACETATE 667 MG CAPSULE PO SCH ×3 (08:44→17:00)
[2018-05-19] MEDS: METOCLOPRAMIDE HCL 10 MG TABLET PO SCH ×3 (08:46→16:30)
[2018-05-19] MEDS: LABETALOL HCL 200 MG TABLET PO SCH ×3 (08:46→17:21)
[2018-05-19] MEDS: AMLODIPINE 5 MG TABLET PO SCH ×2 (08:46→17:00)
[2018-05-19] MEDS: ONDANSETRON 4 MG/2 ML VIAL IV PRN (10:30)
[2018-05-19] MEDS: PANTOPRAZOLE SODIUM 40 MG TABLET.DR PO SCH (17:20)
[2018-05-19] MEDS: ZOLPIDEM 5 MG TABLET PO PRN (21:26)
[2018-05-20] MEDS: ONDANSETRON 4 MG/2 ML VIAL IV PRN ×2 (04:17→11:34)
[2018-05-20 05:49] VITALS: BP 168/100
[2018-05-20] MEDS: METOCLOPRAMIDE HCL 10 MG TABLET PO SCH ×3 (06:39→17:54)
[2018-05-20] MEDS: PANTOPRAZOLE SODIUM 40 MG TABLET.DR PO SCH ×2 (06:39→17:54)
[2018-05-20] MEDS: AMLODIPINE 5 MG TABLET PO SCH ×2 (09:00→17:54)
[2018-05-20] MEDS: PAROXETINE HCL 10 MG TABLET PO SCH ×2 (09:00→15:47)
[2018-05-20] MEDS: LABETALOL HCL 200 MG TABLET PO SCH ×4 (09:00→17:54)
[2018-05-20] MEDS: CALCIUM ACETATE 667 MG CAPSULE PO SCH ×4 (09:00→17:00)
[2018-05-20] MEDS: FOLIC ACID/VITAMIN B COMP W-C TABLET PO SCH ×2 (09:00→15:47)
[2018-05-20 11:32] VITALS: BP 182/105
[2018-05-20] MEDS: BUTALB/ACETAMINOPHEN/CAFFEINE TABLET PO PRN (11:34)
[2018-05-20 12:17] LABS: BASOPHILS % (AUTO) 0.4 % (0.0-2.0); EOSINOPHILS # (AUTO) 0.2 K/uL (0.0-0.7); EOSINOPHILS % (AUTO) 2.9 % (0.0-7.0); LYMPHOCYTES # (AUTO) 1.2 K/uL (20.0-40.0); LYMPHOCYTES % (AUTO) 21.6 % (20.5-51.5); MEAN CORPUSCULAR HEMOGLOBIN 30.1 uug (23.8-33.4); MEAN CORPUSCULAR HGB CONC 34 g/dL (32.5-36.3); MEAN CORPUSCULAR VOLUME 89.5 fL (73.0-96.2); MONOCYTES # (AUTO) 0.5 K/uL (2.0-10.0); MONOCYTES % (AUTO) 8.5 % (0.0-11.0); NEUTROPHILS # (AUTO) 3.7 K/uL (1.8-8.9); NEUTROPHILS % (AUTO) 66.6 % (38.5-71.5); PLATELET COUNT (AUTO) 110 K/uL (152-348); WHITE BLOOD COUNT (AUTO) 5.5 K/uL (3.6-10.2)
[2018-05-20 12:20] LABS: CREATININE 14.7 mg/dL (0.6-1.3); POTASSIUM 6.5 mmol/L (3.5-5.1)
[2018-05-20 12:21] LABS: HEMATOCRIT 20.9 % (36.7-47.1); RED BLOOD CELL COUNT(AUTO) 2.34 MIL/uL (4.06-5.63)
[2018-05-20] MEDS: CLONIDINE-TTS 3 PATCH TD SCH (14:45)
[2018-05-20 15:45] VITALS: BP 175/95
[2018-05-20] MEDS: ENALAPRILAT DIHYDRATE 1.25 MG/1 ML VIAL IV PRN (15:49)
[2018-05-20 18:27] VITALS: BP 180/102
[2018-05-20] MEDS: CLONIDINE HCL 0.2 MG TABLET PO PRN (18:27)
== END 2018-05-20 19:30 | disposition home or self-care (01) | DRG 253 ==
LOC: ER 00:40 → TELE3 04:43 → MEDSURG3 13:10 → TELE-TD3 05-18 16:16 → MEDSURG3 05-19 17:08
PROVIDERS: ADMIT Internal Medicine; ATTEND Internal Medicine Nephrology
PROC: 5A1D70Z Performance of Urinary Filtration, Intermittent, Less than 6 Hours Per Day (ICD-10-PCS; 2018-05-13)
PROC: 5A1D70Z Performance of Urinary Filtration, Intermittent, Less than 6 Hours Per Day (ICD-10-PCS; 2018-05-14)
PROC: 5A1D70Z Performance of Urinary Filtration, Intermittent, Less than 6 Hours Per Day (ICD-10-PCS; 2018-05-15)
PROC: 5A1D70Z Performance of Urinary Filtration, Intermittent, Less than 6 Hours Per Day (ICD-10-PCS; principal; 2018-05-17)
PROC: 30233N1 Transfusion of Nonautologous Red Blood Cells into Peripheral Vein, Percutaneous Approach (ICD-10-PCS; principal; 2018-05-17)
PROC: 5A1D70Z Performance of Urinary Filtration, Intermittent, Less than 6 Hours Per Day (ICD-10-PCS; 2018-05-18)
PROC: 5A1D70Z Performance of Urinary Filtration, Intermittent, Less than 6 Hours Per Day (ICD-10-PCS; 2018-05-20)
DX: K92.2 Gastrointestinal hemorrhage, unspecified (principal); C90.00 Multiple myeloma not having achieved remission; K86.2 Cyst of pancreas; I13.11 Hypertensive heart and chronic kidney disease without heart failure, with stage 5 chronic kidney disease, or end stage renal disease; N25.81 Secondary hyperparathyroidism of renal origin; E83.52 Hypercalcemia; E83.39 Other disorders of phosphorus metabolism; E87.5 Hyperkalemia; N18.6 End stage renal disease; Z99.2 Dependence on renal dialysis; F17.200 Nicotine dependence, unspecified, uncomplicated; D63.1 Anemia in chronic kidney disease; N25.0 Renal osteodystrophy; K29.70 Gastritis, unspecified, without bleeding; R04.0 Epistaxis; K92.1 Melena; K21.9 Gastro-esophageal reflux disease without esophagitis; Z91.15 Patient's noncompliance with renal dialysis
CPT/HCPCS: 36415; 70030-TC; 71045; 83605; 83735; 84100; 84132; 85025; 85730; 86078; 86850; 86900; 86901; 86920; 87040; 90937; 93005; A4663; C9113; G0378; J0885; J1170; J1815; J2405; J2597; J3490; J7050; J8597; P9016-BL; P9021; Q0163

== ENCOUNTER 2018-05-25 01:26 | Inpatient (IN) | payer OTHER ==
[~2018-05-25] VITALS: Ht 170.2 cm; Wt 73.9 kg
[2018-05-25] MEDS ORDERED: ONDANSETRON ODT 4 MG TAB.RAPDIS SL ONE (02:00)
[2018-05-25] MEDS ORDERED: NITROGLYCERIN OINT 1 GM PACKET TP ONE ×2 (02:00→02:23)
[2018-05-25] MEDS ORDERED: OXYCODONE/APAP 5-325 MG TABLET PO ONE (02:00)
[2018-05-25] MEDS ORDERED: LORAZEPAM 0.5 MG TABLET PO ONE (02:00)
[2018-05-25] MEDS ORDERED: ASPIRIN 81 MG TAB.CHEW PO ONE (02:00)
[2018-05-25] MEDS ORDERED: ASPIRIN 81 MG TAB.CHEW ONE (02:23)
[2018-05-25] MEDS ORDERED: LORAZEPAM 1 MG TABLET ONE (02:24)
[2018-05-25] MEDS ORDERED: ONDANSETRON ODT 4 MG TAB.RAPDIS ONE (02:24)
[2018-05-25] MEDS ORDERED: HYDROCODONE/APAP 5-325MG TABLET ONE (02:24)
[2018-05-25 02:44] LABS: BASOPHILS % (AUTO) 0.8 % (0.0-2.0); EOSINOPHILS # (AUTO) 0.2 K/uL (0.0-0.7); HEMATOCRIT 23.6 % (36.7-47.1); HEMOGLOBIN 7.9 g/dL (12.5-16.3); LYMPHOCYTES # (AUTO) 1.7 K/uL (20.0-40.0); MEAN CORPUSCULAR HGB CONC 34 g/dL (32.5-36.3); MEAN CORPUSCULAR VOLUME 89.6 fL (73.0-96.2); MONOCYTES # (AUTO) 0.6 K/uL (2.0-10.0); MONOCYTES % (AUTO) 11.7 % (0.0-11.0); NEUTROPHILS # (AUTO) 2.7 K/uL (1.8-8.9); NEUTROPHILS % (AUTO) 52.5 % (38.5-71.5); PLATELET COUNT (AUTO) 206 K/uL (152-348); RED BLOOD CELL COUNT(AUTO) 2.64 MIL/uL (4.06-5.63); WHITE BLOOD COUNT (AUTO) 5.2 K/uL (3.6-10.2)
[2018-05-25 02:49] LABS: POTASSIUM 6.1 mmol/L (3.5-5.1)
[2018-05-25 02:58] LABS: CREATININE 13.7 mg/dL (0.6-1.3)
[2018-05-25 03:01] LABS: BILIRUBIN,DIRECT 0.1 mg/dL (0.0-0.2); BILIRUBIN,TOTAL 0.5 mg/dL (0.2-1.0); TOTAL PROTEIN, SERUM 10.1 g/dL (6.4-8.2)
[2018-05-25 03:28] LABS: MAGNESIUM 2.3 mg/dL (1.8-2.4)
[2018-05-25] MEDS ORDERED: CLONIDINE HCL 0.1 MG TABLET PO ONE (03:30)
[2018-05-25] MEDS ORDERED: SODIUM POLYSTYRENE SULFONATE 15 G/60 ML LIQUID UDC PO ONE (03:30)
[2018-05-25 04:09] LABS: PHOSPHOROUS 8.7 mg/dL (2.5-4.9)
[2018-05-25] MEDS ORDERED: CLONIDINE HCL 0.1 MG TABLET ONE (04:11)
[2018-05-25] MEDS ORDERED: SODIUM POLYSTYRENE SULFONATE 15 G/60 ML LIQUID UDC ONE (04:12)
[2018-05-25 06:55] VITALS: BP 199/125
[2018-05-25] MEDS ORDERED: CLONIDINE HCL 0.2 MG TABLET PO PRN (10:15)
[2018-05-25] MEDS ORDERED: EPOETIN ALFA 10,000 UNITS/ML VIAL SQ ONE (10:15)
[2018-05-25 11:04] VITALS: BP 184/110
[2018-05-25] MEDS: PAROXETINE HCL 10 MG TABLET PO SCH (11:04)
[2018-05-25] MEDS: BENAZEPRIL HCL 20 MG TABLET PO SCH (11:04)
[2018-05-25] MEDS: METOCLOPRAMIDE HCL 10 MG TABLET PO SCH ×2 (11:06→17:44)
[2018-05-25] MEDS: CALCIUM ACETATE 667 MG CAPSULE PO SCH ×2 (11:07→18:00)
[2018-05-25] MEDS: AMLODIPINE 5 MG TABLET PO SCH ×2 (11:07→21:21)
[2018-05-25] MEDS: PANTOPRAZOLE SODIUM 40 MG TABLET.DR PO SCH (11:10)
[2018-05-25] MEDS: LABETALOL HCL 200 MG TABLET PO SCH ×2 (14:00→22:00)
[2018-05-25 15:09] VITALS: BP 180/108
[2018-05-25 20:00] VITALS: BP 180/53
[2018-05-25] MEDS ORDERED: ACETAMINOPHEN 325 MG TABLET PO PRN (20:45)
[2018-05-26] VITALS: BP 188/106
[2018-05-26] MEDS: LABETALOL HCL 200 MG TABLET PO SCH ×3 (06:00→22:53)
[2018-05-26] MEDS: METOCLOPRAMIDE HCL 10 MG TABLET PO SCH ×4 (07:30→16:50)
[2018-05-26] MEDS: CALCIUM ACETATE 667 MG CAPSULE PO SCH ×4 (08:00→18:00)
[2018-05-26] MEDS: PANTOPRAZOLE SODIUM 40 MG TABLET.DR PO SCH (08:10)
[2018-05-26] MEDS: BENAZEPRIL HCL 20 MG TABLET PO SCH (08:11)
[2018-05-26] MEDS: AMLODIPINE 5 MG TABLET PO SCH ×2 (08:11→22:52)
[2018-05-26 09:00] VITALS: BP 169/105
[2018-05-26] MEDS: FOLIC ACID/VITAMIN B COMP W-C TABLET PO SCH (09:29)
[2018-05-26] MEDS: PAROXETINE HCL 10 MG TABLET PO SCH (09:29)
[2018-05-26 10:58] VITALS: BP 134/84
[2018-05-26 14:57] VITALS: BP 158/93
[2018-05-26 20:00] VITALS: BP 163/96
[2018-05-27 04:00] VITALS: BP 175/104
[2018-05-27] MEDS: LABETALOL HCL 200 MG TABLET PO SCH ×2 (06:00→14:00)
[2018-05-27] MEDS: PANTOPRAZOLE SODIUM 40 MG TABLET.DR PO SCH (07:00)
[2018-05-27] MEDS: METOCLOPRAMIDE HCL 10 MG TABLET PO SCH ×2 (07:30→11:30)
[2018-05-27 08:57] LABS: POTASSIUM 4.8 mmol/L (3.5-5.1)
[2018-05-27 08:58] LABS: CREATININE 10.4 mg/dL (0.6-1.3)
[2018-05-27 08:59] LABS: BASOPHILS % (AUTO) 0.3 % (0.0-2.0); EOSINOPHILS # (AUTO) 0.1 K/uL (0.0-0.7); EOSINOPHILS % (AUTO) 2.8 % (0.0-7.0); HEMATOCRIT 21.7 % (36.7-47.1); LYMPHOCYTES # (AUTO) 1.5 K/uL (20.0-40.0); LYMPHOCYTES % (AUTO) 34.6 % (20.5-51.5); MEAN CORPUSCULAR HEMOGLOBIN 30.2 uug (23.8-33.4); MEAN CORPUSCULAR HGB CONC 34 g/dL (32.5-36.3); MONOCYTES # (AUTO) 0.5 K/uL (2.0-10.0); NEUTROPHILS # (AUTO) 2.3 K/uL (1.8-8.9); NEUTROPHILS % (AUTO) 51.3 % (38.5-71.5); PLATELET COUNT (AUTO) 296 K/uL (152-348); WHITE BLOOD COUNT (AUTO) 4.5 K/uL (3.6-10.2)
[2018-05-27 09:00] LABS: HEMOGLOBIN 7.4 g/dL (12.5-16.3); RED BLOOD CELL COUNT(AUTO) 2.44 MIL/uL (4.06-5.63)
[2018-05-27] MEDS: BENAZEPRIL HCL 20 MG TABLET PO SCH (09:24)
[2018-05-27] MEDS: PAROXETINE HCL 10 MG TABLET PO SCH (09:24)
[2018-05-27] MEDS: CALCIUM ACETATE 667 MG CAPSULE PO SCH ×2 (09:24→12:00)
[2018-05-27] MEDS: FOLIC ACID/VITAMIN B COMP W-C TABLET PO SCH (09:24)
[2018-05-27] MEDS: AMLODIPINE 5 MG TABLET PO SCH (09:25)
[2018-05-27 11:58] VITALS: BP 158/89
[2018-05-27 13:07] LABS: HEPATITIS B SURFACE AG Negative (Negative)
[2018-05-27 14:00] VITALS: BP 158/89
== END 2018-05-27 16:45 | disposition home or self-care (01) | DRG 199 ==
LOC: ER 01:28 → TELE3 06:35 → MEDSURG3 05-26 08:19
PROVIDERS: ADMIT Internal Medicine; ATTEND Internal Medicine
PROC: 5A1D70Z Performance of Urinary Filtration, Intermittent, Less than 6 Hours Per Day (ICD-10-PCS; principal; 2018-05-25)
DX: I16.0 Hypertensive urgency (principal); C90.00 Multiple myeloma not having achieved remission; D69.1 Qualitative platelet defects; E87.5 Hyperkalemia; N18.6 End stage renal disease; I13.11 Hypertensive heart and chronic kidney disease without heart failure, with stage 5 chronic kidney disease, or end stage renal disease; Z99.2 Dependence on renal dialysis; Z91.15 Patient's noncompliance with renal dialysis; F17.210 Nicotine dependence, cigarettes, uncomplicated; K21.9 Gastro-esophageal reflux disease without esophagitis; G89.29 Other chronic pain; K29.70 Gastritis, unspecified, without bleeding; Z79.899 Other long term (current) drug therapy; M54.9 Dorsalgia, unspecified; D64.9 Anemia, unspecified; K86.9 Disease of pancreas, unspecified; R04.0 Epistaxis
CPT/HCPCS: 36415; 70030-TC; 71045; 83735; 84100; 85025; 85730; 87340; 90937; 93005; A4663; G0378; J0885; J8597; Q0162

== ENCOUNTER 2018-06-10 16:58 | Emergency (ER) | payer OTHER ==
[~2018-06-10] VITALS: Ht 170.2 cm; Wt 61.2 kg
--- NOTE | 2018-06-10 18:09 | NUR ---
PT PLACED IN ROOM 1B.
[2018-06-10] MEDS ORDERED: HYDROCODONE/APAP 10-325 MG TABLET PO ONE (18:30)
[2018-06-10] MEDS ORDERED: HYDROCODONE/APAP 5-325MG TABLET ONE (18:41)
[2018-06-10 18:49] LABS: BASOPHILS % (AUTO) 0.3 % (0.0-2.0); EOSINOPHILS # (AUTO) 0.2 K/uL (0.0-0.7); HEMATOCRIT 26.9 % (36.7-47.1); HEMOGLOBIN 8.9 g/dL (12.5-16.3); LYMPHOCYTES # (AUTO) 0.9 K/uL (20.0-40.0); LYMPHOCYTES % (AUTO) 18.1 % (20.5-51.5); MEAN CORPUSCULAR HEMOGLOBIN 29.2 uug (23.8-33.4); MEAN CORPUSCULAR HGB CONC 33 g/dL (32.5-36.3); MEAN CORPUSCULAR VOLUME 88.3 fL (73.0-96.2); MONOCYTES # (AUTO) 0.4 K/uL (2.0-10.0); MONOCYTES % (AUTO) 8.4 % (0.0-11.0); NEUTROPHILS # (AUTO) 3.3 K/uL (1.8-8.9); NEUTROPHILS % (AUTO) 69.2 % (38.5-71.5); PLATELET COUNT (AUTO) 279 K/uL (152-348); RED BLOOD CELL COUNT(AUTO) 3.05 MIL/uL (4.06-5.63); WHITE BLOOD COUNT (AUTO) 4.8 K/uL (3.6-10.2)
--- NOTE | 2018-06-10 18:54 | NUR ---
PATIENT ALREADY SEEN BY ER PHYSICIAN
[2018-06-10 18:58] LABS: CREATININE 6.4 mg/dL (0.6-1.3); POTASSIUM 3.3 mmol/L (3.5-5.1)
--- NOTE | 2018-06-10 19:09 | NUR ---
REPORTED TO ONCOMING SHIFT TONIO WAGNER.
[2018-06-10 19:13] LABS: BILIRUBIN,DIRECT 0.2 mg/dL (0.0-0.2); BILIRUBIN,TOTAL 0.6 mg/dL (0.2-1.0); TOTAL PROTEIN, SERUM 12.7 g/dL (6.4-8.2)
--- NOTE | 2018-06-10 20:08 | NUR ---
Patient discharged to home in stable conditon. Written and verbal after care instructions given. Patient verbalizes understanding of instructions.
== END 2018-06-10 20:09 | disposition home or self-care (01) ==
LOC: ER 16:58
DX: G89.29 Other chronic pain (principal); M25.50 Pain in unspecified joint; I12.0 Hypertensive chronic kidney disease with stage 5 chronic kidney disease or end stage renal disease; N18.6 End stage renal disease; E87.1 Hypo-osmolality and hyponatremia; K21.9 Gastro-esophageal reflux disease without esophagitis; F12.10 Cannabis abuse, uncomplicated; Z88.8 Allergy status to other drugs, medicaments and biological substances; Z79.899 Other long term (current) drug therapy
CPT/HCPCS: 36415; 83690; 85025; 93005; A4663

== ENCOUNTER 2018-06-14 18:26 | Emergency (ER) | payer OTHER ==
[~2018-06-14] VITALS: Ht 170.2 cm; Wt 73.9 kg
[2018-06-14] MEDS ORDERED: LABETALOL HCL 100 MG/20 ML VIAL IV ONE (19:15)
--- NOTE | 2018-06-14 19:47 | NUR ---
Pt refuses to have IV saline lock placed at this time. aware.
[2018-06-14] MEDS: LABETALOL HCL 100 MG/20 ML VIAL IV ONE (20:00)
[2018-06-14] MEDS ORDERED: hydrALAZINE HCL 20 MG/1 ML VIAL ONE ×2 (20:01→21:27)
[2018-06-14] MEDS ORDERED: CLONIDINE HCL 0.2 MG TABLET ONE (20:03)
[2018-06-14] MEDS: hydrALAZINE HCL 20 MG/1 ML VIAL IM ONE ×2 (20:04→21:27)
[2018-06-14] MEDS: CLONIDINE HCL 0.2 MG TABLET PO ONE (20:04)
[2018-06-14 20:37] LABS: HEMATOCRIT 24.2 % (36.7-47.1); MEAN CORPUSCULAR HEMOGLOBIN 29.9 uug (23.8-33.4); MEAN CORPUSCULAR HGB CONC 33 g/dL (32.5-36.3); MEAN CORPUSCULAR VOLUME 90.3 fL (73.0-96.2); PLATELET COUNT (AUTO) 295 K/uL (152-348); RED BLOOD CELL COUNT(AUTO) 2.68 MIL/uL (4.06-5.63)
[2018-06-14 20:39] LABS: POTASSIUM 5.6 mmol/L (3.5-5.1)
[2018-06-14 20:41] LABS: CREATININE 13.4 mg/dL (0.6-1.3)
[2018-06-14 20:50] LABS: BILIRUBIN,DIRECT 0.2 mg/dL (0.0-0.2); BILIRUBIN,TOTAL 0.6 mg/dL (0.2-1.0); TOTAL PROTEIN, SERUM 11.4 g/dL (6.4-8.2)
[2018-06-14 21:03] LABS: EOSINOPHILS % (MANUAL) 4 % (0-8); LYMPHOCYTES % (MANUAL) 24 % (20-40); MONOCYTES % (MANUAL) 4 % (2-10); NEUTROPHILS % (MANUAL) 68 % (42-75)
--- NOTE | 2018-06-14 21:03 | NUR ---
Pt is resting in bed. No acute distress noted.
[2018-06-14 21:27] VITALS: BP 197/113
--- NOTE | 2018-06-14 22:06 | NUR ---
Patient eloped from facility. ER physician notified.
== END 2018-06-14 22:23 | disposition left against medical advice (07) ==
LOC: ER 18:26
DX: I10 Essential (primary) hypertension (principal); B30.9 Viral conjunctivitis, unspecified; D53.9 Nutritional anemia, unspecified; E87.5 Hyperkalemia; K21.9 Gastro-esophageal reflux disease without esophagitis; F12.10 Cannabis abuse, uncomplicated; Z79.899 Other long term (current) drug therapy
CPT/HCPCS: 36415; 71045; 80048; 80076; 84484; 85025; 93005; 96372 ×2; 99284; J0360 ×2; 70030-TC; A4663

== ENCOUNTER 2018-06-21 12:26 | Emergency (ER) | payer OTHER ==
[~2018-06-21] VITALS: Ht 167.6 cm; Wt 62.6 kg
[2018-06-21] MEDS ORDERED: HYDROCODONE/APAP 5-325MG TABLET PO ONE (12:45)
[2018-06-21] MEDS ORDERED: HYDROCODONE/APAP 5-325MG TABLET ONE (12:48)
[2018-06-21] MEDS ORDERED: CIPROFLOXACIN 0.3% OPHT DROP 2.5 ML BOTTLE OP ONE (13:00)
[2018-06-21] MEDS ORDERED: CIPROFLOXACIN 0.3% OPHT DROP 2.5 ML BOTTLE ONE (13:02)
--- NOTE | 2018-06-21 13:07 | NUR ---
Patient discharged to home in stable conditon. Written and verbal after care instructions given. Patient verbalizes understanding of instructions.
== END 2018-06-21 13:10 | disposition home or self-care (01) ==
LOC: ER 12:26
DX: H10.33 Unspecified acute conjunctivitis, bilateral (principal); K21.9 Gastro-esophageal reflux disease without esophagitis; I12.0 Hypertensive chronic kidney disease with stage 5 chronic kidney disease or end stage renal disease; N18.6 End stage renal disease; F12.10 Cannabis abuse, uncomplicated; Z99.2 Dependence on renal dialysis; Z79.899 Other long term (current) drug therapy
CPT/HCPCS: A4663

== ENCOUNTER 2018-06-24 23:30 | Inpatient (IN) | payer OTHER ==
[~2018-06-24] VITALS: Ht 170.2 cm; Wt 74.4 kg
[2018-06-24] MEDS ORDERED: HYDROCODONE/APAP 10-325 MG TABLET ONE (23:55)
[2018-06-25] MEDS ORDERED: HYDROCODONE/APAP 10-325 MG TABLET PO ONE
[2018-06-25 00:36] LABS: BASOPHILS % (AUTO) 0.2 % (0.0-2.0); EOSINOPHILS # (AUTO) 0.2 K/uL (0.0-0.7); EOSINOPHILS % (AUTO) 3.5 % (0.0-7.0); HEMATOCRIT 22.9 % (36.7-47.1); HEMOGLOBIN 7.6 g/dL (12.5-16.3); LYMPHOCYTES # (AUTO) 1.6 K/uL (20.0-40.0); LYMPHOCYTES % (AUTO) 23.6 % (20.5-51.5); MEAN CORPUSCULAR HEMOGLOBIN 29.2 uug (23.8-33.4); MEAN CORPUSCULAR HGB CONC 33 g/dL (32.5-36.3); MEAN CORPUSCULAR VOLUME 88.5 fL (73.0-96.2); MONOCYTES # (AUTO) 0.6 K/uL (2.0-10.0); MONOCYTES % (AUTO) 9.4 % (0.0-11.0); NEUTROPHILS # (AUTO) 4.3 K/uL (1.8-8.9); NEUTROPHILS % (AUTO) 63.3 % (38.5-71.5); PLATELET COUNT (AUTO) 278 K/uL (152-348); RED BLOOD CELL COUNT(AUTO) 2.59 MIL/uL (4.06-5.63); WHITE BLOOD COUNT (AUTO) 6.9 K/uL (3.6-10.2)
[2018-06-25 01:07] LABS: BILIRUBIN,TOTAL 0.7 mg/dL (0.2-1.0); MAGNESIUM 2.6 mg/dL (1.8-2.4); POTASSIUM 5.6 mmol/L (3.5-5.1); TOTAL PROTEIN, SERUM 11.5 g/dL (6.4-8.2)
[2018-06-25 01:10] LABS: CREATININE 16.1 mg/dL (0.6-1.3); PHOSPHOROUS 11.1 mg/dL (2.5-4.9)
[2018-06-25] MEDS ORDERED: LORAZEPAM 0.5 MG TABLET PO ONE (02:00)
[2018-06-25] MEDS ORDERED: LORAZEPAM 1 MG TABLET ONE (02:04)
[2018-06-25] MEDS ORDERED: Z GUARD REMEDY PASTE 57 GM TUBE TOP PRN (03:15)
[2018-06-25] MEDS ORDERED: MAGNESIUM HYDROXIDE 30 ML LIQUID UDC PO PRN (03:15)
[2018-06-25] MEDS: CLONIDINE HCL 0.2 MG TABLET PO PRN (05:19)
[2018-06-25] MEDS: METOCLOPRAMIDE HCL 10 MG TABLET PO SCH ×3 (06:39→16:30)
[2018-06-25] MEDS: PANTOPRAZOLE SODIUM 40 MG TABLET.DR PO SCH (06:39)
[2018-06-25 06:45] VITALS: BP 209/132
[2018-06-25] MEDS: LABETALOL HCL 200 MG TABLET PO SCH ×4 (07:59→22:37)
[2018-06-25] MEDS: CALCIUM ACETATE 667 MG CAPSULE PO SCH ×3 (08:00→18:26)
[2018-06-25] MEDS: FOLIC ACID/VITAMIN B COMP W-C TABLET PO SCH (12:24)
[2018-06-25] MEDS: BENAZEPRIL HCL 20 MG TABLET PO SCH (12:24)
[2018-06-25] MEDS: AMLODIPINE 5 MG TABLET PO SCH ×2 (12:25→21:00)
[2018-06-25] MEDS: PAROXETINE HCL 10 MG TABLET PO SCH (12:25)
[2018-06-25 16:34] VITALS: BP 201/119
[2018-06-25] MEDS: POLYVINYL ALCOHOL OPHT DROPS 15 ML BOTTLE EACHEYE PRN (18:26)
[2018-06-25] MEDS: CIPROFLOXACIN 0.3% OPHT DROP 2.5 ML BOTTLE EACHEYE SCH ×2 (19:00→21:30)
[2018-06-25 19:21] VITALS: BP 131/107
[2018-06-25] MEDS: HYDROCODONE/APAP 5-325MG TABLET PO PRN (22:37)
[2018-06-26] MEDS: CIPROFLOXACIN 0.3% OPHT DROP 2.5 ML BOTTLE EACHEYE SCH ×6 (02:11→22:43)
[2018-06-26 03:27] VITALS: BP 183/71
[2018-06-26] MEDS: POLYVINYL ALCOHOL OPHT DROPS 15 ML BOTTLE EACHEYE PRN (04:46)
[2018-06-26] MEDS: HYDROCODONE/APAP 5-325MG TABLET PO PRN ×3 (06:01→16:31)
[2018-06-26] MEDS: LABETALOL HCL 200 MG TABLET PO SCH ×3 (06:08→21:16)
[2018-06-26] MEDS: PANTOPRAZOLE SODIUM 40 MG TABLET.DR PO SCH (06:32)
[2018-06-26] MEDS: METOCLOPRAMIDE HCL 10 MG TABLET PO SCH ×3 (06:33→16:30)
[2018-06-26] MEDS: CALCIUM ACETATE 667 MG CAPSULE PO SCH ×3 (10:06→18:00)
[2018-06-26] MEDS: FOLIC ACID/VITAMIN B COMP W-C TABLET PO SCH (10:06)
[2018-06-26] MEDS: AMLODIPINE 5 MG TABLET PO SCH ×2 (10:07→21:15)
[2018-06-26] MEDS: BENAZEPRIL HCL 20 MG TABLET PO SCH (10:07)
[2018-06-26] MEDS: PAROXETINE HCL 10 MG TABLET PO SCH (10:07)
[2018-06-26 11:22] VITALS: BP 170/107
[2018-06-26] MEDS: SEVELAMER CARBONATE 800 MG TABLET PO SCH ×2 (12:16→18:00)
[2018-06-26 12:31] LABS: BASOPHILS % (AUTO) 0.2 % (0.0-2.0); EOSINOPHILS # (AUTO) 0.2 K/uL (0.0-0.7); EOSINOPHILS % (AUTO) 3.3 % (0.0-7.0); HEMATOCRIT 22.5 % (36.7-47.1); HEMOGLOBIN 7.5 g/dL (12.5-16.3); LYMPHOCYTES # (AUTO) 0.9 K/uL (20.0-40.0); LYMPHOCYTES % (AUTO) 13.6 % (20.5-51.5); MEAN CORPUSCULAR HEMOGLOBIN 29.3 uug (23.8-33.4); MEAN CORPUSCULAR HGB CONC 33 g/dL (32.5-36.3); MEAN CORPUSCULAR VOLUME 87.9 fL (73.0-96.2); MONOCYTES # (AUTO) 0.5 K/uL (2.0-10.0); MONOCYTES % (AUTO) 7.8 % (0.0-11.0); NEUTROPHILS # (AUTO) 4.8 K/uL (1.8-8.9); NEUTROPHILS % (AUTO) 75.1 % (38.5-71.5); PLATELET COUNT (AUTO) 257 K/uL (152-348); RED BLOOD CELL COUNT(AUTO) 2.56 MIL/uL (4.06-5.63); WHITE BLOOD COUNT (AUTO) 6.5 K/uL (3.6-10.2)
[2018-06-26 12:50] LABS: MAGNESIUM 2.9 mg/dL (1.8-2.4); POTASSIUM 5.7 mmol/L (3.5-5.1)
[2018-06-26 12:51] LABS: CREATININE 18.7 mg/dL (0.6-1.3); PHOSPHOROUS 10.5 mg/dL (2.5-4.9)
[2018-06-26 15:28] VITALS: BP 172/96
[2018-06-26] MEDS ORDERED: diphenhydrAMINE 50 MG/1 ML VIAL IV ONE (16:30)
[2018-06-26] MEDS: CLONIDINE HCL 0.2 MG TABLET PO PRN (16:31)
[2018-06-26 19:22] VITALS: BP 159/93
[2018-06-27] MEDS: CIPROFLOXACIN 0.3% OPHT DROP 2.5 ML BOTTLE EACHEYE SCH ×6 (01:41→21:48)
[2018-06-27 05:23] VITALS: BP 158/96
[2018-06-27] MEDS: LABETALOL HCL 200 MG TABLET PO SCH ×3 (06:14→21:48)
[2018-06-27] MEDS: PANTOPRAZOLE SODIUM 40 MG TABLET.DR PO SCH (06:33)
[2018-06-27] MEDS: METOCLOPRAMIDE HCL 10 MG TABLET PO SCH ×3 (08:02→16:57)
[2018-06-27] MEDS: CALCIUM ACETATE 667 MG CAPSULE PO SCH ×3 (08:03→17:14)
[2018-06-27] MEDS: SEVELAMER CARBONATE 800 MG TABLET PO SCH ×3 (08:03→17:14)
[2018-06-27] MEDS: FOLIC ACID/VITAMIN B COMP W-C TABLET PO SCH (09:11)
[2018-06-27] MEDS: BENAZEPRIL HCL 20 MG TABLET PO SCH (09:11)
[2018-06-27] MEDS: PAROXETINE HCL 10 MG TABLET PO SCH (09:12)
[2018-06-27] MEDS: AMLODIPINE 5 MG TABLET PO SCH ×2 (09:12→21:47)
[2018-06-27 10:45] LABS: IRON, SERUM 24 ug/dL (50-175)
[2018-06-27 11:22] VITALS: BP 169/69
[2018-06-27] MEDS: ONDANSETRON 4 MG/2 ML VIAL IV PRN (20:28)
[2018-06-27 20:30] VITALS: BP 176/107
[2018-06-28] VITALS (8 sets, daily range): BP systolic 140–184; BP diastolic 42–106
[2018-06-28] MEDS: CIPROFLOXACIN 0.3% OPHT DROP 2.5 ML BOTTLE EACHEYE SCH ×5 (01:25→17:47)
[2018-06-28] MEDS: ZOLPIDEM 5 MG TABLET PO PRN (01:52)
[2018-06-28] MEDS: LABETALOL HCL 200 MG TABLET PO SCH ×3 (06:25→21:49)
[2018-06-28] MEDS: METOCLOPRAMIDE HCL 10 MG TABLET PO SCH ×3 (07:30→16:30)
[2018-06-28] MEDS: PANTOPRAZOLE SODIUM 40 MG TABLET.DR PO SCH (07:30)
[2018-06-28] MEDS: SEVELAMER CARBONATE 800 MG TABLET PO SCH ×3 (08:00→17:24)
[2018-06-28] MEDS: CALCIUM ACETATE 667 MG CAPSULE PO SCH ×3 (08:00→17:24)
[2018-06-28] MEDS: PAROXETINE HCL 10 MG TABLET PO SCH (08:40)
[2018-06-28] MEDS: FOLIC ACID/VITAMIN B COMP W-C TABLET PO SCH (08:40)
[2018-06-28] MEDS: AMLODIPINE 5 MG TABLET PO SCH ×2 (09:00→20:26)
[2018-06-28] MEDS: BENAZEPRIL HCL 20 MG TABLET PO SCH (09:00)
[2018-06-28] MEDS: CLONIDINE HCL 0.2 MG TABLET PO PRN (12:41)
[2018-06-28] MEDS ORDERED: DESMOPRESSIN INJ 30 MCG in IV NORMAL SALINE 50 ML IV ONE (13:15)
[2018-06-28] MEDS ORDERED: PHYTONADIONE 10 MG/1 ML AMPUL SQ ONE ×2 (13:15→14:00)
[2018-06-28] MEDS: ACETAMINOPHEN 325 MG TABLET PO PRN (21:04)
[2018-06-28] MEDS: LORAZEPAM 2 MG/1 ML VIAL IV PRN (22:11)
[2018-06-29] VITALS (10 sets, daily range): BP systolic 133–171; BP diastolic 78–102
[2018-06-29] MEDS: ZOLPIDEM 5 MG TABLET PO PRN ×2 (01:16→23:23)
[2018-06-29] MEDS: CLONIDINE HCL 0.2 MG TABLET PO PRN (04:41)
[2018-06-29] MEDS: LORAZEPAM 2 MG/1 ML VIAL IV PRN ×3 (04:41→23:23)
[2018-06-29] MEDS: LABETALOL HCL 200 MG TABLET PO SCH ×3 (05:59→21:21)
[2018-06-29] MEDS: PANTOPRAZOLE SODIUM 40 MG TABLET.DR PO SCH (06:36)
[2018-06-29 06:39] LABS: BASOPHILS % (AUTO) 0.2 % (0.0-2.0); EOSINOPHILS # (AUTO) 0.1 K/uL (0.0-0.7); EOSINOPHILS % (AUTO) 2.7 % (0.0-7.0); LYMPHOCYTES # (AUTO) 0.9 K/uL (20.0-40.0); LYMPHOCYTES % (AUTO) 17.2 % (20.5-51.5); MEAN CORPUSCULAR HEMOGLOBIN 30.2 uug (23.8-33.4); MEAN CORPUSCULAR HGB CONC 34 g/dL (32.5-36.3); MEAN CORPUSCULAR VOLUME 88.1 fL (73.0-96.2); MONOCYTES # (AUTO) 0.5 K/uL (2.0-10.0); MONOCYTES % (AUTO) 8.8 % (0.0-11.0); NEUTROPHILS # (AUTO) 3.7 K/uL (1.8-8.9); NEUTROPHILS % (AUTO) 71.1 % (38.5-71.5); PLATELET COUNT (AUTO) 210 K/uL (152-348); WHITE BLOOD COUNT (AUTO) 5.2 K/uL (3.6-10.2)
[2018-06-29 06:50] LABS: HEMOGLOBIN 5.2 g/dL (12.5-16.3)
[2018-06-29 06:53] LABS: MAGNESIUM 2.4 mg/dL (1.8-2.4); PHOSPHOROUS 5.8 mg/dL (2.5-4.9); POTASSIUM 4.4 mmol/L (3.5-5.1)
[2018-06-29 07:07] LABS: CREATININE 12.6 mg/dL (0.6-1.3)
[2018-06-29] MEDS: METOCLOPRAMIDE HCL 10 MG TABLET PO SCH ×3 (07:30→16:33)
[2018-06-29] MEDS: SEVELAMER CARBONATE 800 MG TABLET PO SCH ×3 (08:00→17:23)
[2018-06-29] MEDS: CALCIUM ACETATE 667 MG CAPSULE PO SCH ×3 (08:00→17:23)
[2018-06-29] MEDS: FOLIC ACID/VITAMIN B COMP W-C TABLET PO SCH (08:40)
[2018-06-29] MEDS: PAROXETINE HCL 10 MG TABLET PO SCH (08:40)
[2018-06-29] MEDS: AMLODIPINE 5 MG TABLET PO SCH ×2 (08:40→20:30)
[2018-06-29] MEDS: BENAZEPRIL HCL 20 MG TABLET PO SCH (08:40)
[2018-06-29] MEDS: PHYTONADIONE 10 MG/1 ML AMPUL SQ SCH (14:07)
[2018-06-29] MEDS: diphenhydrAMINE 50 MG CAPSULE PO PRN ×2 (17:20→23:23)
[2018-06-29] MEDS: HYDROCODONE/APAP 5-325MG TABLET PO PRN (20:29)
[2018-06-30 03:31] VITALS: BP 171/87
[2018-06-30] MEDS: LABETALOL HCL 200 MG TABLET PO SCH ×3 (05:27→21:42)
[2018-06-30] MEDS: HYDROCODONE/APAP 5-325MG TABLET PO PRN ×2 (05:34→14:47)
[2018-06-30] MEDS: PANTOPRAZOLE SODIUM 40 MG TABLET.DR PO SCH (06:16)
[2018-06-30] MEDS: METOCLOPRAMIDE HCL 10 MG TABLET PO SCH ×3 (06:17→16:30)
[2018-06-30] MEDS: CALCIUM ACETATE 667 MG CAPSULE PO SCH ×3 (08:00→17:39)
[2018-06-30] MEDS: SEVELAMER CARBONATE 800 MG TABLET PO SCH ×3 (08:00→17:39)
[2018-06-30] MEDS: FOLIC ACID/VITAMIN B COMP W-C TABLET PO SCH (08:27)
[2018-06-30] MEDS: BENAZEPRIL HCL 20 MG TABLET PO SCH (08:27)
[2018-06-30] MEDS: PAROXETINE HCL 10 MG TABLET PO SCH (08:28)
[2018-06-30] MEDS: AMLODIPINE 5 MG TABLET PO SCH ×2 (08:28→21:42)
[2018-06-30 11:56] VITALS: BP 182/99
[2018-06-30] MEDS: PHYTONADIONE 10 MG/1 ML AMPUL SQ SCH (14:39)
[2018-06-30] MEDS: POLYVINYL ALCOHOL OPHT DROPS 15 ML BOTTLE EACHEYE PRN (14:40)
[2018-06-30] MEDS: diphenhydrAMINE 50 MG CAPSULE PO PRN (14:47)
[2018-06-30] MEDS: LORAZEPAM 2 MG/1 ML VIAL IV PRN (15:22)
[2018-06-30] MEDS: CLONIDINE HCL 0.2 MG TABLET PO PRN (18:38)
[2018-06-30 19:32] VITALS: BP 179/104
[2018-06-30] MEDS: GUAIFENESIN/DEXTROMETHORPHAN 5 ML UDC PO PRN (21:43)
[2018-07-01] MEDS: HYDROCODONE/APAP 5-325MG TABLET PO PRN ×4 (01:45→21:51)
[2018-07-01] MEDS: ZOLPIDEM 5 MG TABLET PO PRN ×2 (01:54→23:59)
[2018-07-01 03:22] VITALS: BP 174/99
[2018-07-01 05:14] LABS: *IGG SUBCLASS 1 3903 mg/dL (248-810); *IGG SUBCLASS 2 33 mg/dL (130-555); *IGG SUBCLASS 3 9 mg/dL (15-102); *IGG SUBCLASS 4 3 mg/dL (2-96); *IMMUNOGLOBULIN G, SERUM 5209 mg/dL (700-1600)
[2018-07-01] MEDS: LABETALOL HCL 200 MG TABLET PO SCH ×3 (06:17→21:48)
[2018-07-01] MEDS: PANTOPRAZOLE SODIUM 40 MG TABLET.DR PO SCH (06:41)
[2018-07-01] MEDS: METOCLOPRAMIDE HCL 10 MG TABLET PO SCH ×3 (06:41→11:47)
[2018-07-01] MEDS: CALCIUM ACETATE 667 MG CAPSULE PO SCH ×3 (08:42→11:47)
[2018-07-01] MEDS: SEVELAMER CARBONATE 800 MG TABLET PO SCH ×3 (08:42→11:47)
[2018-07-01] MEDS: PAROXETINE HCL 10 MG TABLET PO SCH (08:42)
[2018-07-01] MEDS: BENAZEPRIL HCL 20 MG TABLET PO SCH (08:42)
[2018-07-01] MEDS: AMLODIPINE 5 MG TABLET PO SCH ×2 (08:42→20:01)
[2018-07-01] MEDS: FOLIC ACID/VITAMIN B COMP W-C TABLET PO SCH (10:13)
[2018-07-01 11:12] LABS: EOSINOPHILS # (AUTO) 0.1 K/uL (0.0-0.7); LYMPHOCYTES # (AUTO) 0.8 K/uL (20.0-40.0); NEUTROPHILS # (AUTO) 5.2 K/uL (1.8-8.9)
[2018-07-01 11:14] LABS: BASOPHILS % (AUTO) 0.2 % (0.0-2.0); EOSINOPHILS % (AUTO) 1.8 % (0.0-7.0); LYMPHOCYTES % (AUTO) 12.6 % (20.5-51.5); MEAN CORPUSCULAR HGB CONC 34 g/dL (32.5-36.3); MEAN CORPUSCULAR VOLUME 88.9 fL (73.0-96.2); MONOCYTES # (AUTO) 0.5 K/uL (2.0-10.0); NEUTROPHILS % (AUTO) 78.4 % (38.5-71.5); PLATELET COUNT (AUTO) 188 K/uL (152-348); WHITE BLOOD COUNT (AUTO) 6.7 K/uL (3.6-10.2)
[2018-07-01 11:20] LABS: MAGNESIUM 2.3 mg/dL (1.8-2.4); PHOSPHOROUS 5.5 mg/dL (2.5-4.9); POTASSIUM 5.3 mmol/L (3.5-5.1)
[2018-07-01 11:21] LABS: CREATININE 14.5 mg/dL (0.6-1.3)
[2018-07-01 11:23] LABS: HEMATOCRIT 20.4 % (36.7-47.1); HEMOGLOBIN 6.9 g/dL (12.5-16.3)
[2018-07-01 11:35] VITALS: BP 176/96
[2018-07-01] MEDS: GUAIFENESIN/DEXTROMETHORPHAN 5 ML UDC PO PRN (13:30)
[2018-07-01 15:52] VITALS: BP 175/100
[2018-07-01 20:13] VITALS: BP 181/95
[2018-07-01] MEDS: ACETAMINOPHEN 325 MG TABLET PO PRN (20:43)
[2018-07-01] MEDS: ONDANSETRON 4 MG/2 ML VIAL IV PRN (20:46)
[2018-07-02] MEDS: LORAZEPAM 2 MG/1 ML VIAL IV PRN ×2 (02:21→16:43)
[2018-07-02 04:20] VITALS: BP 163/90
[2018-07-02] MEDS: LABETALOL HCL 200 MG TABLET PO SCH ×3 (06:18→22:00)
[2018-07-02] MEDS: PANTOPRAZOLE SODIUM 40 MG TABLET.DR PO SCH (06:40)
[2018-07-02] MEDS: FOLIC ACID/VITAMIN B COMP W-C TABLET PO SCH (08:11)
[2018-07-02] MEDS: METOCLOPRAMIDE HCL 10 MG TABLET PO SCH ×5 (08:11→16:43)
[2018-07-02] MEDS: SEVELAMER CARBONATE 800 MG TABLET PO SCH ×5 (08:11→18:00)
[2018-07-02] MEDS: CALCIUM ACETATE 667 MG CAPSULE PO SCH ×4 (08:11→18:00)
[2018-07-02] MEDS: BENAZEPRIL HCL 20 MG TABLET PO SCH (08:13)
[2018-07-02] MEDS: PAROXETINE HCL 10 MG TABLET PO SCH (08:14)
[2018-07-02] MEDS: AMLODIPINE 5 MG TABLET PO SCH ×2 (08:14→20:06)
[2018-07-02] MEDS: GUAIFENESIN/DEXTROMETHORPHAN 5 ML UDC PO PRN ×2 (10:21→17:04)
[2018-07-02 11:40] VITALS: BP 168/102
[2018-07-02 12:50] VITALS: BP 163/94
[2018-07-02 13:18] VITALS: BP 169/103
[2018-07-02] MEDS: CLONIDINE HCL 0.2 MG TABLET PO PRN (19:44)
[2018-07-02] MEDS: HYDROCODONE/APAP 5-325MG TABLET PO PRN (19:47)
[2018-07-02 19:51] VITALS: BP 191/109
[2018-07-03] MEDS: LORAZEPAM 2 MG/1 ML VIAL IV PRN ×3 (00:27→14:53)
[2018-07-03] MEDS: HYDROCODONE/APAP 5-325MG TABLET PO PRN ×3 (00:29→10:48)
[2018-07-03] MEDS: GUAIFENESIN/DEXTROMETHORPHAN 5 ML UDC PO PRN ×3 (02:53→18:06)
[2018-07-03 05:53] VITALS: BP 161/85
[2018-07-03] MEDS: LABETALOL HCL 200 MG TABLET PO SCH ×3 (06:06→22:31)
[2018-07-03] MEDS: PANTOPRAZOLE SODIUM 40 MG TABLET.DR PO SCH (06:30)
[2018-07-03] MEDS: METOCLOPRAMIDE HCL 10 MG TABLET PO SCH ×3 (07:30→16:30)
[2018-07-03 07:46] LABS: BASOPHILS % (AUTO) 0.4 % (0.0-2.0); EOSINOPHILS # (AUTO) 0.2 K/uL (0.0-0.7); LYMPHOCYTES # (AUTO) 0.8 K/uL (20.0-40.0); LYMPHOCYTES % (AUTO) 14.6 % (20.5-51.5); MEAN CORPUSCULAR HEMOGLOBIN 29.4 uug (23.8-33.4); MEAN CORPUSCULAR HGB CONC 34 g/dL (32.5-36.3); MEAN CORPUSCULAR VOLUME 87.6 fL (73.0-96.2); MONOCYTES # (AUTO) 0.4 K/uL (2.0-10.0); MONOCYTES % (AUTO) 8.1 % (0.0-11.0); NEUTROPHILS # (AUTO) 3.9 K/uL (1.8-8.9); NEUTROPHILS % (AUTO) 73.9 % (38.5-71.5); PLATELET COUNT (AUTO) 210 K/uL (152-348); RED BLOOD CELL COUNT(AUTO) 2.51 MIL/uL (4.06-5.63); WHITE BLOOD COUNT (AUTO) 5.3 K/uL (3.6-10.2)
[2018-07-03 07:49] LABS: HEMOGLOBIN 7.4 g/dL (12.5-16.3)
[2018-07-03 07:54] LABS: MAGNESIUM 2.2 mg/dL (1.8-2.4); PHOSPHOROUS 4.6 mg/dL (2.5-4.9); POTASSIUM 4.2 mmol/L (3.5-5.1)
[2018-07-03] MEDS: SEVELAMER CARBONATE 800 MG TABLET PO SCH ×3 (08:00→18:00)
[2018-07-03] MEDS: CALCIUM ACETATE 667 MG CAPSULE PO SCH ×3 (08:00→18:00)
[2018-07-03 08:11] LABS: CREATININE 10.1 mg/dL (0.6-1.3)
[2018-07-03] MEDS: FOLIC ACID/VITAMIN B COMP W-C TABLET PO SCH ×2 (09:00→10:37)
[2018-07-03] MEDS: PAROXETINE HCL 10 MG TABLET PO SCH ×2 (09:00→10:37)
[2018-07-03] MEDS: AMLODIPINE 5 MG TABLET PO SCH ×3 (09:00→21:36)
[2018-07-03] MEDS: BENAZEPRIL HCL 20 MG TABLET PO SCH ×2 (09:00→10:38)
[2018-07-03 11:17] VITALS: BP 144/91
[2018-07-03 15:30] VITALS: BP 159/94
[2018-07-03 20:00] VITALS: BP 160/96
[2018-07-04] MEDS: GUAIFENESIN/DEXTROMETHORPHAN 5 ML UDC PO PRN ×4 (00:17→23:22)
[2018-07-04] MEDS: LORAZEPAM 2 MG/1 ML VIAL IV PRN ×2 (00:17→21:18)
[2018-07-04 05:38] VITALS: BP 151/85
[2018-07-04] MEDS: LABETALOL HCL 200 MG TABLET PO SCH ×4 (06:00→21:18)
[2018-07-04 06:40] LABS: BASOPHILS % (AUTO) 0.4 % (0.0-2.0); EOSINOPHILS # (AUTO) 0.2 K/uL (0.0-0.7); EOSINOPHILS % (AUTO) 4.9 % (0.0-7.0); HEMATOCRIT 25.4 % (36.7-47.1); HEMOGLOBIN 8.3 g/dL (12.5-16.3); LYMPHOCYTES % (AUTO) 19.8 % (20.5-51.5); MEAN CORPUSCULAR HEMOGLOBIN 28.9 uug (23.8-33.4); MEAN CORPUSCULAR HGB CONC 33 g/dL (32.5-36.3); MEAN CORPUSCULAR VOLUME 88.9 fL (73.0-96.2); MONOCYTES # (AUTO) 0.5 K/uL (2.0-10.0); MONOCYTES % (AUTO) 9.4 % (0.0-11.0); NEUTROPHILS # (AUTO) 3.3 K/uL (1.8-8.9); NEUTROPHILS % (AUTO) 65.5 % (38.5-71.5); PLATELET COUNT (AUTO) 269 K/uL (152-348); RED BLOOD CELL COUNT(AUTO) 2.86 MIL/uL (4.06-5.63); WHITE BLOOD COUNT (AUTO) 5.1 K/uL (3.6-10.2)
[2018-07-04 06:59] LABS: MAGNESIUM 2.2 mg/dL (1.8-2.4); PHOSPHOROUS 4.5 mg/dL (2.5-4.9)
[2018-07-04] MEDS: METOCLOPRAMIDE HCL 10 MG TABLET PO SCH ×4 (07:01→16:30)
[2018-07-04] MEDS: PANTOPRAZOLE SODIUM 40 MG TABLET.DR PO SCH ×2 (07:01→07:07)
[2018-07-04 07:03] LABS: CREATININE 8.5 mg/dL (0.6-1.3)
[2018-07-04] MEDS: SEVELAMER CARBONATE 800 MG TABLET PO SCH ×3 (09:07→17:26)
[2018-07-04] MEDS: CALCIUM ACETATE 667 MG CAPSULE PO SCH ×3 (09:08→17:26)
[2018-07-04] MEDS: HYDROCODONE/APAP 5-325MG TABLET PO PRN ×3 (09:08→21:26)
[2018-07-04] MEDS ORDERED: HYDROMORPHONE 1 MG/1 ML DISP.SYRIN IM ONE (09:45)
[2018-07-04] MEDS: FOLIC ACID/VITAMIN B COMP W-C TABLET PO SCH ×2 (10:33→10:37)
[2018-07-04] MEDS: PAROXETINE HCL 10 MG TABLET PO SCH (10:38)
[2018-07-04] MEDS: BENAZEPRIL HCL 20 MG TABLET PO SCH (10:39)
[2018-07-04] MEDS: AMLODIPINE 5 MG TABLET PO SCH ×2 (10:40→20:31)
[2018-07-04 11:15] VITALS: BP 161/43
[2018-07-04 15:42] VITALS: BP 152/92
[2018-07-04 17:26] VITALS: BP 151/92
[2018-07-04 19:30] VITALS: BP 150/90
[2018-07-05] MEDS: HYDROCODONE/APAP 5-325MG TABLET PO PRN ×3 (04:41→16:50)
[2018-07-05] MEDS: LABETALOL HCL 200 MG TABLET PO SCH ×3 (05:01→23:39)
[2018-07-05] MEDS: LORAZEPAM 2 MG/1 ML VIAL IV PRN (05:03)
[2018-07-05] MEDS: GUAIFENESIN/DEXTROMETHORPHAN 5 ML UDC PO PRN ×2 (05:23→11:32)
[2018-07-05] MEDS: METOCLOPRAMIDE HCL 10 MG TABLET PO SCH ×3 (06:34→16:30)
[2018-07-05] MEDS: PANTOPRAZOLE SODIUM 40 MG TABLET.DR PO SCH (06:34)
[2018-07-05] MEDS: CALCIUM ACETATE 667 MG CAPSULE PO SCH ×4 (08:00→17:01)
[2018-07-05] MEDS: SEVELAMER CARBONATE 800 MG TABLET PO SCH ×4 (08:00→17:01)
[2018-07-05] MEDS: FOLIC ACID/VITAMIN B COMP W-C TABLET PO SCH (08:45)
[2018-07-05] MEDS: PAROXETINE HCL 10 MG TABLET PO SCH (08:45)
[2018-07-05] MEDS: BENAZEPRIL HCL 20 MG TABLET PO SCH (08:46)
[2018-07-05] MEDS: AMLODIPINE 5 MG TABLET PO SCH ×2 (08:47→20:40)
[2018-07-05 11:47] VITALS: BP 151/95
[2018-07-05 15:22] VITALS: BP 150/93
[2018-07-05 20:07] VITALS: BP 162/97
[2018-07-06] MEDS: HYDROCODONE/APAP 5-325MG TABLET PO PRN ×2 (00:12→09:30)
[2018-07-06] MEDS: LORAZEPAM 2 MG/1 ML VIAL IV PRN ×2 (00:13→19:28)
[2018-07-06] MEDS: GUAIFENESIN/DEXTROMETHORPHAN 5 ML UDC PO PRN (01:20)
[2018-07-06] MEDS: ZOLPIDEM 5 MG TABLET PO PRN (01:24)
[2018-07-06] MEDS: LABETALOL HCL 200 MG TABLET PO SCH ×3 (06:18→21:06)
[2018-07-06 06:23] VITALS: BP 156/93
[2018-07-06] MEDS: PANTOPRAZOLE SODIUM 40 MG TABLET.DR PO SCH (06:33)
[2018-07-06] MEDS: METOCLOPRAMIDE HCL 10 MG TABLET PO SCH ×3 (06:33→16:37)
[2018-07-06] MEDS: CALCIUM ACETATE 667 MG CAPSULE PO SCH ×3 (08:00→17:42)
[2018-07-06] MEDS: SEVELAMER CARBONATE 800 MG TABLET PO SCH ×3 (08:00→17:42)
[2018-07-06] MEDS: AMLODIPINE 5 MG TABLET PO SCH ×4 (09:00→20:42)
[2018-07-06] MEDS: PAROXETINE HCL 10 MG TABLET PO SCH ×2 (09:00→09:31)
[2018-07-06] MEDS: FOLIC ACID/VITAMIN B COMP W-C TABLET PO SCH ×2 (09:00→09:31)
[2018-07-06] MEDS: BENAZEPRIL HCL 20 MG TABLET PO SCH ×2 (09:00→09:32)
[2018-07-06 09:53] LABS: BASOPHILS # (AUTO) 0.1 K/uL (0.0-8.0); BASOPHILS % (AUTO) 0.9 % (0.0-2.0); EOSINOPHILS # (AUTO) 0.3 K/uL (0.0-0.7); EOSINOPHILS % (AUTO) 4.7 % (0.0-7.0); HEMATOCRIT 24.8 % (36.7-47.1); HEMOGLOBIN 8.4 g/dL (12.5-16.3); LYMPHOCYTES # (AUTO) 1.5 K/uL (20.0-40.0); LYMPHOCYTES % (AUTO) 23.4 % (20.5-51.5); MEAN CORPUSCULAR HEMOGLOBIN 29.4 uug (23.8-33.4); MEAN CORPUSCULAR HGB CONC 34 g/dL (32.5-36.3); MEAN CORPUSCULAR VOLUME 87.4 fL (73.0-96.2); MONOCYTES # (AUTO) 0.6 K/uL (2.0-10.0); NEUTROPHILS # (AUTO) 3.9 K/uL (1.8-8.9); PLATELET COUNT (AUTO) 297 K/uL (152-348); RED BLOOD CELL COUNT(AUTO) 2.84 MIL/uL (4.06-5.63); WHITE BLOOD COUNT (AUTO) 6.3 K/uL (3.6-10.2)
[2018-07-06 10:05] LABS: BILIRUBIN,TOTAL 0.8 mg/dL (0.2-1.0); MAGNESIUM 2.6 mg/dL (1.8-2.4); PHOSPHOROUS 5.9 mg/dL (2.5-4.9); POTASSIUM 4.7 mmol/L (3.5-5.1); TOTAL PROTEIN, SERUM 10.3 g/dL (6.4-8.2)
[2018-07-06 10:12] LABS: CREATININE 12.9 mg/dL (0.6-1.3)
[2018-07-06 11:40] VITALS: BP 153/89
[2018-07-06] MEDS: HYDROMORPHONE 1 MG/1 ML DISP.SYRIN IV PRN ×3 (12:32→21:21)
[2018-07-06 15:40] VITALS: BP 148/86
[2018-07-06 20:07] VITALS: BP 160/97
[2018-07-07] MEDS: HYDROMORPHONE 1 MG/1 ML DISP.SYRIN IV PRN ×3 (00:09→06:25)
[2018-07-07] MEDS: LABETALOL HCL 200 MG TABLET PO SCH ×3 (06:15→21:29)
[2018-07-07] MEDS: LORAZEPAM 2 MG/1 ML VIAL IV PRN ×2 (06:26→18:20)
[2018-07-07] MEDS: GUAIFENESIN/DEXTROMETHORPHAN 5 ML UDC PO PRN (06:26)
[2018-07-07 06:36] VITALS: BP 153/87
[2018-07-07] MEDS: PANTOPRAZOLE SODIUM 40 MG TABLET.DR PO SCH (07:30)
[2018-07-07] MEDS: METOCLOPRAMIDE HCL 10 MG TABLET PO SCH ×3 (07:30→16:20)
[2018-07-07] MEDS ORDERED: LIDOCAINE HCL 1% 20 ML VIAL ONE (07:38)
[2018-07-07] MEDS ORDERED: BUPIVACAINE 0.25% 30 ML VIAL ONE (07:39)
[2018-07-07] MEDS ORDERED: POLYMYXIN B SULFATE 500,000 UNITS, BACITRACIN 50,000 UNITS, NORMAL SALINE 20 ML MC ONE ×3 (07:45)
[2018-07-07] MEDS: SEVELAMER CARBONATE 800 MG TABLET PO SCH ×3 (08:00→18:00)
[2018-07-07] MEDS: CALCIUM ACETATE 667 MG CAPSULE PO SCH ×3 (08:00→18:00)
[2018-07-07] MEDS ORDERED: PROPOFOL 200 MG/20 ML BOTTLE IV ONE (08:38)
[2018-07-07] MEDS ORDERED: IV NORMAL SALINE 1000 ML BAG IV ONE ×2 (08:38→08:44)
[2018-07-07] MEDS ORDERED: CEFAZOLIN 1 G VIAL MC ONE (08:38)
[2018-07-07] MEDS ORDERED: NEOSTIGMINE METHYLSULFATE 10 MG/10 ML VIAL IV ONE (08:38)
[2018-07-07] MEDS ORDERED: GLYCOPYRROLATE 0.2 MG/ML VIAL MC ONE (08:38)
[2018-07-07] MEDS ORDERED: SEVOFLURANE 250 ML BOTTLE IH ONE (08:38)
[2018-07-07] MEDS ORDERED: METOCLOPRAMIDE HCL 10 MG/2 ML VIAL IV ONE (08:38)
[2018-07-07] MEDS ORDERED: LIDOCAINE-MPF 2% 5 ML VIAL MC ONE (08:38)
[2018-07-07] MEDS ORDERED: ONDANSETRON 4 MG/2 ML VIAL IV ONE (08:38)
[2018-07-07] MEDS: AMLODIPINE 5 MG TABLET PO SCH ×2 (09:00→21:29)
[2018-07-07] MEDS: PAROXETINE HCL 10 MG TABLET PO SCH (09:00)
[2018-07-07] MEDS: BENAZEPRIL HCL 20 MG TABLET PO SCH (09:00)
[2018-07-07] MEDS: FOLIC ACID/VITAMIN B COMP W-C TABLET PO SCH (09:00)
[2018-07-07] MEDS ORDERED: MIDAZOLAM HCL 2 MG/2 ML VIAL ONE (09:58)
[2018-07-07] MEDS ORDERED: FENTANYL CITRATE 250 MCG/5 ML AMPUL ONE (09:58)
[2018-07-07] MEDS ORDERED: ROCURONIUM BROMIDE 50 MG/5 ML VIAL ONE (10:00)
[2018-07-07] MEDS ORDERED: VANCOMYCIN 1000 MG VIAL ONE (11:44)
[2018-07-07] MEDS ORDERED: ALBUTEROL SULFATE 2.5 MG/3 ML NEBU ONE (12:29)
[2018-07-07] MEDS ORDERED: IPRATROPIUM BROMIDE 0.5 MG/2.5 ML NEBU ONE (12:30)
[2018-07-07] MEDS ORDERED: FENTANYL CITRATE 100 MCG/2 ML AMPUL ONE ×2 (12:39→13:11)
[2018-07-07] MEDS ORDERED: HYDROCODONE/APAP 10-325 MG TABLET PO PRN (13:00)
[2018-07-07] MEDS ORDERED: POTASSIUM CHLORIDE 20 MEQ in IV D5 1/2 NS 1000 ML 1,000 ML IV PRN (13:00)
[2018-07-07 13:53] VITALS: BP 163/102
[2018-07-07 13:54] VITALS: BP 163/102
[2018-07-07] MEDS: MORPHINE SULFATE 4 MG/1 ML DISP.SYRIN IV PRN ×4 (14:01→23:28)
[2018-07-07] MEDS: CLONIDINE HCL 0.2 MG TABLET PO PRN (14:02)
[2018-07-07 16:20] VITALS: BP 144/91
[2018-07-07 17:00] VITALS: BP 147/91
[2018-07-07] MEDS ORDERED: CEFAZOLIN 1 G in PREMIXED 1 EACH IV SCH (19:00)
[2018-07-07 20:00] VITALS: BP 154/92
[2018-07-08] MEDS: MORPHINE SULFATE 4 MG/1 ML DISP.SYRIN IV PRN ×3 (02:17→07:44)
[2018-07-08] MEDS: LORAZEPAM 2 MG/1 ML VIAL IV PRN ×3 (03:08→15:30)
[2018-07-08 05:17] VITALS: BP 155/91
[2018-07-08] MEDS: LABETALOL HCL 200 MG TABLET PO SCH ×3 (05:44→21:05)
[2018-07-08] MEDS: METOCLOPRAMIDE HCL 10 MG TABLET PO SCH ×3 (07:49→17:47)
[2018-07-08] MEDS: PANTOPRAZOLE SODIUM 40 MG TABLET.DR PO SCH (07:49)
[2018-07-08] MEDS: SEVELAMER CARBONATE 800 MG TABLET PO SCH ×3 (08:00→17:46)
[2018-07-08] MEDS: CALCIUM ACETATE 667 MG CAPSULE PO SCH ×3 (08:00→17:46)
[2018-07-08] MEDS: BENAZEPRIL HCL 20 MG TABLET PO SCH (09:16)
[2018-07-08] MEDS: AMLODIPINE 5 MG TABLET PO SCH ×2 (09:18→21:05)
[2018-07-08] MEDS: FOLIC ACID/VITAMIN B COMP W-C TABLET PO SCH (09:33)
[2018-07-08] MEDS: PAROXETINE HCL 10 MG TABLET PO SCH (09:33)
[2018-07-08 11:36] VITALS: BP 159/88
[2018-07-08] MEDS: HYDROMORPHONE 1 MG/1 ML DISP.SYRIN IV PRN ×3 (13:35→21:27)
[2018-07-08 13:53] LABS: BASOPHILS % (AUTO) 0.5 % (0.0-2.0); EOSINOPHILS # (AUTO) 0.2 K/uL (0.0-0.7); EOSINOPHILS % (AUTO) 2.4 % (0.0-7.0); HEMATOCRIT 24.7 % (36.7-47.1); HEMOGLOBIN 8.2 g/dL (12.5-16.3); LYMPHOCYTES # (AUTO) 1.2 K/uL (20.0-40.0); LYMPHOCYTES % (AUTO) 14.2 % (20.5-51.5); MEAN CORPUSCULAR HEMOGLOBIN 29.3 uug (23.8-33.4); MEAN CORPUSCULAR HGB CONC 33 g/dL (32.5-36.3); MEAN CORPUSCULAR VOLUME 87.7 fL (73.0-96.2); MONOCYTES # (AUTO) 0.7 K/uL (2.0-10.0); MONOCYTES % (AUTO) 8.4 % (0.0-11.0); NEUTROPHILS # (AUTO) 6.3 K/uL (1.8-8.9); NEUTROPHILS % (AUTO) 74.5 % (38.5-71.5); PLATELET COUNT (AUTO) 294 K/uL (152-348); RED BLOOD CELL COUNT(AUTO) 2.81 MIL/uL (4.06-5.63); WHITE BLOOD COUNT (AUTO) 8.4 K/uL (3.6-10.2)
[2018-07-08 14:00] LABS: POTASSIUM 4.5 mmol/L (3.5-5.1)
[2018-07-08 14:03] LABS: CREATININE 9.2 mg/dL (0.6-1.3); MAGNESIUM 2.4 mg/dL (1.8-2.4); PHOSPHOROUS 4.5 mg/dL (2.5-4.9)
[2018-07-08 16:36] VITALS: BP 164/97
[2018-07-08] MEDS: ONDANSETRON 4 MG/2 ML VIAL IV PRN (17:51)
[2018-07-08 21:15] VITALS: BP 170/95
[2018-07-09] MEDS: GUAIFENESIN/DEXTROMETHORPHAN 5 ML UDC PO PRN ×2 (00:36→20:37)
[2018-07-09] MEDS: HYDROMORPHONE 1 MG/1 ML DISP.SYRIN IV PRN ×4 (01:27→20:56)
[2018-07-09 05:14] VITALS: BP 159/94
[2018-07-09] MEDS: LABETALOL HCL 200 MG TABLET PO SCH ×3 (05:36→21:08)
[2018-07-09] MEDS: PANTOPRAZOLE SODIUM 40 MG TABLET.DR PO SCH (06:35)
[2018-07-09] MEDS: METOCLOPRAMIDE HCL 10 MG TABLET PO SCH ×3 (06:36→17:40)
[2018-07-09 07:22] LABS: BASOPHILS # (AUTO) 0.1 K/uL (0.0-8.0); BASOPHILS % (AUTO) 0.5 % (0.0-2.0); EOSINOPHILS # (AUTO) 0.4 K/uL (0.0-0.7); EOSINOPHILS % (AUTO) 3.4 % (0.0-7.0); HEMOGLOBIN 7.6 g/dL (12.5-16.3); LYMPHOCYTES # (AUTO) 1.5 K/uL (20.0-40.0); LYMPHOCYTES % (AUTO) 14.7 % (20.5-51.5); MEAN CORPUSCULAR HEMOGLOBIN 29.5 uug (23.8-33.4); MEAN CORPUSCULAR HGB CONC 33 g/dL (32.5-36.3); MEAN CORPUSCULAR VOLUME 88.7 fL (73.0-96.2); MONOCYTES % (AUTO) 9.3 % (0.0-11.0); NEUTROPHILS # (AUTO) 7.5 K/uL (1.8-8.9); NEUTROPHILS % (AUTO) 72.1 % (38.5-71.5); PLATELET COUNT (AUTO) 305 K/uL (152-348); RED BLOOD CELL COUNT(AUTO) 2.59 MIL/uL (4.06-5.63); WHITE BLOOD COUNT (AUTO) 10.4 K/uL (3.6-10.2)
[2018-07-09] MEDS: CALCIUM ACETATE 667 MG CAPSULE PO SCH ×3 (08:00→17:38)
[2018-07-09] MEDS: SEVELAMER CARBONATE 800 MG TABLET PO SCH ×3 (08:00→17:40)
[2018-07-09] MEDS: PAROXETINE HCL 10 MG TABLET PO SCH (09:00)
[2018-07-09] MEDS: BENAZEPRIL HCL 20 MG TABLET PO SCH (09:00)
[2018-07-09] MEDS: AMLODIPINE 5 MG TABLET PO SCH ×2 (09:00→21:07)
[2018-07-09] MEDS: FOLIC ACID/VITAMIN B COMP W-C TABLET PO SCH (09:00)
[2018-07-09] MEDS: LORAZEPAM 2 MG/1 ML VIAL IV PRN (09:07)
[2018-07-09 10:09] LABS: HEPATITIS A AB, IgM Negative (Negative); HEPATITIS A AB, TOTAL Positive (Negative); HEPATITIS B SURFACE AB Non Reactive (.); HEPATITIS B SURFACE AG Negative (Negative)
[2018-07-09 10:29] LABS: BILIRUBIN,TOTAL 0.6 mg/dL (0.2-1.0); MAGNESIUM 2.5 mg/dL (1.8-2.4); PHOSPHOROUS 5.8 mg/dL (2.5-4.9); POTASSIUM 5.3 mmol/L (3.5-5.1)
[2018-07-09 10:30] LABS: CREATININE 11.5 mg/dL (0.6-1.3)
[2018-07-09 16:29] VITALS: BP 157/87
[2018-07-09 20:26] VITALS: BP 150/96
[2018-07-10] MEDS: HYDROMORPHONE 1 MG/1 ML DISP.SYRIN IV PRN ×5 (01:26→19:57)
[2018-07-10] MEDS: GUAIFENESIN/DEXTROMETHORPHAN 5 ML UDC PO PRN ×2 (04:04→21:38)
[2018-07-10] MEDS: LABETALOL HCL 200 MG TABLET PO SCH ×3 (05:32→21:37)
[2018-07-10 06:05] VITALS: BP 155/96
[2018-07-10] MEDS: METOCLOPRAMIDE HCL 10 MG TABLET PO SCH ×3 (06:42→17:02)
[2018-07-10] MEDS: PANTOPRAZOLE SODIUM 40 MG TABLET.DR PO SCH (06:42)
[2018-07-10 07:05] LABS: HEPATITIS Be ANTIGEN Positive (Negative)
[2018-07-10] MEDS: FOLIC ACID/VITAMIN B COMP W-C TABLET PO SCH (10:04)
[2018-07-10] MEDS: AMLODIPINE 5 MG TABLET PO SCH ×2 (10:04→21:37)
[2018-07-10] MEDS: PAROXETINE HCL 10 MG TABLET PO SCH (10:04)
[2018-07-10] MEDS: CALCIUM ACETATE 667 MG CAPSULE PO SCH ×2 (10:04→12:33)
[2018-07-10] MEDS: SEVELAMER CARBONATE 800 MG TABLET PO SCH ×3 (10:04→18:00)
[2018-07-10] MEDS: BENAZEPRIL HCL 20 MG TABLET PO SCH (10:05)
[2018-07-10] MEDS: diphenhydrAMINE 50 MG CAPSULE PO PRN ×3 (10:07→23:16)
[2018-07-10 11:32] VITALS: BP 152/59
[2018-07-10 15:42] VITALS: BP 155/93
[2018-07-10 19:29] VITALS: BP 155/93
[2018-07-10 20:52] VITALS: BP 153/94
[2018-07-10] MEDS: ONDANSETRON 4 MG/2 ML VIAL IV PRN (20:57)
[2018-07-11] MEDS: HYDROMORPHONE 1 MG/1 ML DISP.SYRIN IV PRN ×5 (01:11→20:17)
[2018-07-11 06:10] LABS: BASOPHILS % (AUTO) 0.4 % (0.0-2.0); EOSINOPHILS # (AUTO) 0.2 K/uL (0.0-0.7); EOSINOPHILS % (AUTO) 2.4 % (0.0-7.0); HEMATOCRIT 22.4 % (36.7-47.1); HEMOGLOBIN 7.6 g/dL (12.5-16.3); LYMPHOCYTES # (AUTO) 1.5 K/uL (20.0-40.0); LYMPHOCYTES % (AUTO) 17.4 % (20.5-51.5); MEAN CORPUSCULAR HEMOGLOBIN 29.9 uug (23.8-33.4); MEAN CORPUSCULAR HGB CONC 34 g/dL (32.5-36.3); MEAN CORPUSCULAR VOLUME 88.1 fL (73.0-96.2); MONOCYTES # (AUTO) 0.9 K/uL (2.0-10.0); NEUTROPHILS # (AUTO) 5.9 K/uL (1.8-8.9); NEUTROPHILS % (AUTO) 68.8 % (38.5-71.5); PLATELET COUNT (AUTO) 336 K/uL (152-348); RED BLOOD CELL COUNT(AUTO) 2.54 MIL/uL (4.06-5.63); WHITE BLOOD COUNT (AUTO) 8.6 K/uL (3.6-10.2)
[2018-07-11] MEDS: PANTOPRAZOLE SODIUM 40 MG TABLET.DR PO SCH (06:34)
[2018-07-11] MEDS: METOCLOPRAMIDE HCL 10 MG TABLET PO SCH ×3 (06:34→16:30)
[2018-07-11] MEDS: LABETALOL HCL 200 MG TABLET PO SCH ×3 (06:36→21:35)
[2018-07-11 06:41] LABS: BILIRUBIN,TOTAL 0.7 mg/dL (0.2-1.0); MAGNESIUM 2.4 mg/dL (1.8-2.4); PHOSPHOROUS 5.9 mg/dL (2.5-4.9); TOTAL PROTEIN, SERUM 10.9 g/dL (6.4-8.2)
[2018-07-11 07:04] LABS: CREATININE 11.1 mg/dL (0.6-1.3)
[2018-07-11] MEDS: SEVELAMER CARBONATE 800 MG TABLET PO SCH ×3 (08:00→18:00)
[2018-07-11] MEDS: CALCIUM ACETATE 667 MG CAPSULE PO SCH ×4 (08:00→18:00)
[2018-07-11] MEDS: PAROXETINE HCL 10 MG TABLET PO SCH (08:47)
[2018-07-11] MEDS: BENAZEPRIL HCL 20 MG TABLET PO SCH (08:47)
[2018-07-11] MEDS: FOLIC ACID/VITAMIN B COMP W-C TABLET PO SCH (08:47)
[2018-07-11] MEDS: AMLODIPINE 5 MG TABLET PO SCH ×2 (08:47→21:00)
[2018-07-11 11:10] VITALS: BP 140/84
[2018-07-11 15:42] VITALS: BP 125/69
[2018-07-11 19:57] VITALS: BP 134/77
[2018-07-12] MEDS: HYDROMORPHONE 1 MG/1 ML DISP.SYRIN IV PRN ×6 (00:27→21:24)
[2018-07-12] MEDS: AMLODIPINE 5 MG TABLET PO SCH ×3 (00:35→21:00)
[2018-07-12] MEDS: LABETALOL HCL 200 MG TABLET PO SCH ×4 (00:36→23:21)
[2018-07-12] MEDS: GUAIFENESIN/DEXTROMETHORPHAN 5 ML UDC PO PRN (04:40)
[2018-07-12 06:13] VITALS: BP 145/85
[2018-07-12] MEDS: PAROXETINE HCL 10 MG TABLET PO SCH (08:43)
[2018-07-12] MEDS: FOLIC ACID/VITAMIN B COMP W-C TABLET PO SCH (08:43)
[2018-07-12] MEDS: SEVELAMER CARBONATE 800 MG TABLET PO SCH ×3 (08:43→18:00)
[2018-07-12] MEDS: CALCIUM ACETATE 667 MG CAPSULE PO SCH ×3 (08:43→18:00)
[2018-07-12] MEDS: METOCLOPRAMIDE HCL 10 MG TABLET PO SCH ×3 (08:44→17:20)
[2018-07-12] MEDS: PANTOPRAZOLE SODIUM 40 MG TABLET.DR PO SCH (08:44)
[2018-07-12] MEDS: BENAZEPRIL HCL 20 MG TABLET PO SCH (08:44)
[2018-07-12 09:06] LABS: HEPATITIS B SURFACE AB Non Reactive (.); HEPATITIS B SURFACE AG Negative (Negative)
[2018-07-12 11:40] VITALS: BP 139/81
[2018-07-12 15:21] LABS: BASOPHILS # (AUTO) 0.1 K/uL (0.0-8.0); BASOPHILS % (AUTO) 0.9 % (0.0-2.0); EOSINOPHILS # (AUTO) 0.2 K/uL (0.0-0.7); EOSINOPHILS % (AUTO) 2.6 % (0.0-7.0); LYMPHOCYTES # (AUTO) 1.8 K/uL (20.0-40.0); LYMPHOCYTES % (AUTO) 19.7 % (20.5-51.5); MEAN CORPUSCULAR HEMOGLOBIN 29.7 uug (23.8-33.4); MEAN CORPUSCULAR HGB CONC 34 g/dL (32.5-36.3); MEAN CORPUSCULAR VOLUME 87.5 fL (73.0-96.2); MONOCYTES # (AUTO) 0.9 K/uL (2.0-10.0); MONOCYTES % (AUTO) 9.3 % (0.0-11.0); NEUTROPHILS # (AUTO) 6.2 K/uL (1.8-8.9); NEUTROPHILS % (AUTO) 67.5 % (38.5-71.5); PLATELET COUNT (AUTO) 313 K/uL (152-348); WHITE BLOOD COUNT (AUTO) 9.2 K/uL (3.6-10.2)
[2018-07-12 15:28] LABS: HEMOGLOBIN 7.1 g/dL (12.5-16.3)
[2018-07-12 15:34] LABS: ALANINE AMINOTRANSFERASE < 6 U/L (16-63); ALKALINE PHOSPHATASE 71 U/L (50-136); ASPARTATE AMINOTRANSFERASE 14 U/L (15-37); BILIRUBIN,TOTAL 0.8 mg/dL (0.2-1.0); CARBON DIOXIDE 28 mmol/L (21-32); CHLORIDE 94 mmol/L (98-107); GLUCOSE 92 mg/dL (74-106); MAGNESIUM 2.7 mg/dL (1.8-2.4); POTASSIUM 5.2 mmol/L (3.5-5.1); TOTAL PROTEIN, SERUM 10.7 g/dL (6.4-8.2); UREA NITROGEN, BLOOD 74 mg/dL (7-18)
[2018-07-12 15:37] LABS: CREATININE 14.3 mg/dL (0.6-1.3)
[2018-07-12 15:38] LABS: ABG BASE EXCESS 6.6 mmol/L; ABG HCO3 30.7 mmol/L; ABG PCO2 42.6 mmHg (35.0-45.0); ABG PH 7.476 (7.350-7.450); ABG SITE RIGHT RADIAL; ABG TOTAL HEMOGLOBIN 8.2 G/dL (13.5-18.0); COHb 1.8 % (0.5-1.5); MetHb 0.2 % (0.0-1.5); O2Hb 95.3 % (94.0-97.0); VENT MODE Room Air
[2018-07-12 20:02] VITALS: BP 143/80
[2018-07-13] MEDS: HYDROMORPHONE 1 MG/1 ML DISP.SYRIN IV PRN ×6 (01:18→23:12)
[2018-07-13] MEDS: LABETALOL HCL 200 MG TABLET PO SCH ×4 (06:00→22:42)
[2018-07-13 06:16] VITALS: BP 129/75
[2018-07-13] MEDS: PANTOPRAZOLE SODIUM 40 MG TABLET.DR PO SCH (06:17)
[2018-07-13] MEDS: METOCLOPRAMIDE HCL 10 MG TABLET PO SCH ×4 (06:17→16:30)
[2018-07-13] MEDS: SEVELAMER CARBONATE 800 MG TABLET PO SCH ×3 (08:45→17:41)
[2018-07-13] MEDS: FOLIC ACID/VITAMIN B COMP W-C TABLET PO SCH (08:45)
[2018-07-13] MEDS: PAROXETINE HCL 10 MG TABLET PO SCH (08:45)
[2018-07-13] MEDS: CALCIUM ACETATE 667 MG CAPSULE PO SCH ×3 (08:45→17:42)
[2018-07-13 08:51] VITALS: BP 135/70
[2018-07-13] MEDS: AMLODIPINE 5 MG TABLET PO SCH ×3 (08:51→22:43)
[2018-07-13] MEDS: BENAZEPRIL HCL 20 MG TABLET PO SCH (08:51)
[2018-07-13 11:00] VITALS: BP 120/74
[2018-07-13 19:34] VITALS: BP 136/76
[2018-07-13] MEDS: ONDANSETRON 4 MG/2 ML VIAL IV PRN (23:30)
[2018-07-14] VITALS (7 sets, daily range): BP systolic 129–149; BP diastolic 72–81
[2018-07-14] MEDS: HYDROMORPHONE 1 MG/1 ML DISP.SYRIN IV PRN ×5 (03:10→20:59)
[2018-07-14] MEDS ORDERED: CYCLOBENZAPRINE HCL 10 MG TABLET PO PRN (03:45)
[2018-07-14] MEDS: LABETALOL HCL 200 MG TABLET PO SCH ×3 (06:00→21:04)
[2018-07-14] MEDS: PANTOPRAZOLE SODIUM 40 MG TABLET.DR PO SCH (07:30)
[2018-07-14] MEDS: METOCLOPRAMIDE HCL 10 MG TABLET PO SCH ×3 (07:30→17:10)
[2018-07-14] MEDS: FOLIC ACID/VITAMIN B COMP W-C TABLET PO SCH (09:28)
[2018-07-14] MEDS: SEVELAMER CARBONATE 800 MG TABLET PO SCH ×3 (09:28→17:10)
[2018-07-14] MEDS: BENAZEPRIL HCL 20 MG TABLET PO SCH (09:29)
[2018-07-14] MEDS: PAROXETINE HCL 10 MG TABLET PO SCH (09:29)
[2018-07-14] MEDS: CALCIUM ACETATE 667 MG CAPSULE PO SCH ×3 (09:29→17:10)
[2018-07-14] MEDS: AMLODIPINE 5 MG TABLET PO SCH ×2 (09:29→21:00)
[2018-07-14] MEDS ORDERED: EPOETIN ALFA 10,000 UNITS/ML VIAL IVP ONE (15:30)
[2018-07-14] MEDS: CYCLOBENZAPRINE HCL 10 MG TABLET PO SCH (22:36)
[2018-07-15] MEDS: HYDROMORPHONE 1 MG/1 ML DISP.SYRIN IV PRN ×4 (00:55→13:20)
[2018-07-15 03:34] VITALS: BP 156/90
[2018-07-15] MEDS: LABETALOL HCL 200 MG TABLET PO SCH ×3 (06:06→22:00)
[2018-07-15] MEDS: PANTOPRAZOLE SODIUM 40 MG TABLET.DR PO SCH (06:35)
[2018-07-15] MEDS: METOCLOPRAMIDE HCL 10 MG TABLET PO SCH ×3 (06:35→17:29)
[2018-07-15 07:38] LABS: BASOPHILS % (AUTO) 0.3 % (0.0-2.0); EOSINOPHILS # (AUTO) 0.2 K/uL (0.0-0.7); EOSINOPHILS % (AUTO) 2.5 % (0.0-7.0); HEMATOCRIT 23.4 % (36.7-47.1); LYMPHOCYTES % (AUTO) 20.5 % (20.5-51.5); MEAN CORPUSCULAR HEMOGLOBIN 30.1 uug (23.8-33.4); MEAN CORPUSCULAR HGB CONC 34 g/dL (32.5-36.3); MEAN CORPUSCULAR VOLUME 87.6 fL (73.0-96.2); MONOCYTES # (AUTO) 1.1 K/uL (2.0-10.0); MONOCYTES % (AUTO) 11.7 % (0.0-11.0); NEUTROPHILS # (AUTO) 6.2 K/uL (1.8-8.9); PLATELET COUNT (AUTO) 270 K/uL (152-348); RED BLOOD CELL COUNT(AUTO) 2.68 MIL/uL (4.06-5.63); WHITE BLOOD COUNT (AUTO) 9.6 K/uL (3.6-10.2)
[2018-07-15] MEDS: SEVELAMER CARBONATE 800 MG TABLET PO SCH ×3 (08:22→17:29)
[2018-07-15] MEDS: FOLIC ACID/VITAMIN B COMP W-C TABLET PO SCH (08:22)
[2018-07-15] MEDS: PAROXETINE HCL 10 MG TABLET PO SCH (08:22)
[2018-07-15] MEDS: CALCIUM ACETATE 667 MG CAPSULE PO SCH ×3 (08:22→17:29)
[2018-07-15] MEDS: AMLODIPINE 5 MG TABLET PO SCH ×2 (08:22→20:52)
[2018-07-15] MEDS: BENAZEPRIL HCL 20 MG TABLET PO SCH (08:22)
[2018-07-15] MEDS: CYCLOBENZAPRINE HCL 10 MG TABLET PO SCH ×2 (08:23→17:29)
[2018-07-15 11:40] VITALS: BP 142/83
[2018-07-15 15:50] VITALS: BP 137/74
[2018-07-15 19:41] VITALS: BP 137/76
[2018-07-15] MEDS: OXYCODONE/APAP 5-325 MG TABLET PO PRN (22:00)
[2018-07-16 03:38] VITALS: BP 133/80
[2018-07-16] MEDS: OXYCODONE/APAP 5-325 MG TABLET PO PRN ×4 (04:49→20:59)
[2018-07-16] MEDS: LABETALOL HCL 200 MG TABLET PO SCH ×2 (06:00→14:13)
[2018-07-16] MEDS: METOCLOPRAMIDE HCL 10 MG TABLET PO SCH ×3 (06:31→16:13)
[2018-07-16] MEDS: PANTOPRAZOLE SODIUM 40 MG TABLET.DR PO SCH (06:31)
[2018-07-16] MEDS: CALCIUM ACETATE 667 MG CAPSULE PO SCH ×3 (08:00→17:22)
[2018-07-16] MEDS: SEVELAMER CARBONATE 800 MG TABLET PO SCH ×3 (08:00→17:22)
[2018-07-16] MEDS: CYCLOBENZAPRINE HCL 10 MG TABLET PO SCH ×2 (09:00→16:13)
[2018-07-16] MEDS: BENAZEPRIL HCL 20 MG TABLET PO SCH (09:00)
[2018-07-16] MEDS: AMLODIPINE 5 MG TABLET PO SCH ×2 (09:00→21:00)
[2018-07-16] MEDS: PAROXETINE HCL 10 MG TABLET PO SCH (09:00)
[2018-07-16] MEDS: FOLIC ACID/VITAMIN B COMP W-C TABLET PO SCH (09:00)
[2018-07-16 11:41] VITALS: BP 144/90
[2018-07-16 15:27] VITALS: BP 134/78
[2018-07-16 20:05] VITALS: BP_SYST 132; BP_SYST 177; BP_DIAS 71; BP_DIAS 90
[2018-07-16 21:00] VITALS: BP 137/60
[2018-07-19 12:06] LABS: HEPATITIS Be ANTIGEN Negative (Negative)
== END 2018-07-16 22:23 | DRG 680 ==
LOC: ER 23:30 → MEDSURG3 06-25 02:09
PROVIDERS: ADMIT Internal Medicine; ATTEND Internal Medicine
PROC: 5A1D70Z Performance of Urinary Filtration, Intermittent, Less than 6 Hours Per Day (ICD-10-PCS; principal; 2018-06-26)
PROC: 30233R1 Transfusion of Nonautologous Platelets into Peripheral Vein, Percutaneous Approach (ICD-10-PCS; 2018-06-28)
PROC: 2Y41X5Z Packing of Nasal Region using Packing Material (ICD-10-PCS; 2018-06-28)
PROC: 30233N1 Transfusion of Nonautologous Red Blood Cells into Peripheral Vein, Percutaneous Approach (ICD-10-PCS; 2018-06-29)
PROC: 0PH Upper Bones, Insertion (ICD-10-PCS; 2018-07-07)
DX: C90.00 Multiple myeloma not having achieved remission (principal); D63.0 Anemia in neoplastic disease; C79.52 Secondary malignant neoplasm of bone marrow; D68.9 Coagulation defect, unspecified; D69.1 Qualitative platelet defects; I13.11 Hypertensive heart and chronic kidney disease without heart failure, with stage 5 chronic kidney disease, or end stage renal disease; M84.522A Pathological fracture in neoplastic disease, left humerus, initial encounter for fracture; E83.39 Other disorders of phosphorus metabolism; I16.1 Hypertensive emergency; E87.1 Hypo-osmolality and hyponatremia; N18.6 End stage renal disease; E87.5 Hyperkalemia; Z91.15 Patient's noncompliance with renal dialysis; Z99.2 Dependence on renal dialysis; Z87.891 Personal history of nicotine dependence; G89.4 Chronic pain syndrome; K21.9 Gastro-esophageal reflux disease without esophagitis; D63.1 Anemia in chronic kidney disease; R04.0 Epistaxis; Z91.19 Patient's noncompliance with other medical treatment and regimen; G89.3 Neoplasm related pain (acute) (chronic); H10.30 Unspecified acute conjunctivitis, unspecified eye; Z86.14 Personal history of Methicillin resistant Staphylococcus aureus infection; N25.0 Renal osteodystrophy; K86.9 Disease of pancreas, unspecified; K29.70 Gastritis, unspecified, without bleeding; N25.81 Secondary hyperparathyroidism of renal origin
CPT/HCPCS: 36415; 36600; 70030-TC; 71045; 73060; 73090; 73130; 73221; 83550; 83735; 84100; 85025; 85610; 85730; 86704; 86705; 86706; 86708; 86709; 86803; 86850; 86900; 86901; 86920; 87340; 87350; 87536; 87806; 90937; 93005; 97116; 97165; 97530; A4649; A4663; C1713; G0378; J0690; J0885; J1170; J1200; J2060; J2250; J2270; J2405; J2597; J2710; J2765; J3010; J3370; J3430; J3490; J3590; J7030; J7040; J7050; J8597; P9016-BL; P9021; P9035-BL; Q0163

== ENCOUNTER 2018-07-25 21:47 | Inpatient (IN) | payer OTHER ==
[~2018-07-25] VITALS: Ht 170.2 cm; Wt 93.9 kg
[2018-07-25] MEDS ORDERED: CLON0.2T PO (22:15)
[2018-07-25] MEDS ORDERED: CALC667T2 PO (22:15)
[2018-07-25] MEDS ORDERED: SEVE800T8 PO (22:15)
[2018-07-25] MEDS ORDERED: PARO-154 PO (22:15)
[2018-07-25] MEDS ORDERED: LABE200T8 PO (22:15)
[2018-07-25] MEDS ORDERED: MELA3TAB PO (22:15)
[2018-07-25] MEDS ORDERED: AMLO5TAB4 PO (22:15)
[2018-07-25] MEDS ORDERED: CYCL5TAB PO (22:15)
[2018-07-25] MEDS ORDERED: POLY15DR57 OP (22:15)
[2018-07-25] MEDS ORDERED: METO5TAB87 PO (22:15)
[2018-07-25] MEDS ORDERED: DIPH25CA83 PO (22:15)
[2018-07-25] MEDS ORDERED: GUAI237L83 PO (22:15)
[2018-07-25] MEDS ORDERED: ACET325T53 PO (22:15)
[2018-07-25] MEDS ORDERED: BENA40TA67 PO (22:15)
[2018-07-25] MEDS ORDERED: VIT1TABL44 PO (22:15)
[2018-07-25] MEDS ORDERED: PANT40TA2 PO (22:15)
--- NOTE | 2018-07-25 22:17 | NUR ---
DR. MCCABE AT BEDSIDE FOR MSE.
[2018-07-25] MEDS ORDERED: ONDANSETRON 4 MG/2 ML VIAL IV ONE (22:30)
--- NOTE | 2018-07-25 22:40 | NUR ---
PATIENT TAKEN TO CT SCAN.
[2018-07-25 22:42] LABS: BASOPHILS # (AUTO) 0.1 K/uL (0.0-8.0); BASOPHILS % (AUTO) 0.8 % (0.0-2.0); EOSINOPHILS # (AUTO) 0.4 K/uL (0.0-0.7); EOSINOPHILS % (AUTO) 4.7 % (0.0-7.0); HEMATOCRIT 21.1 % (36.7-47.1); LYMPHOCYTES # (AUTO) 1.2 K/uL (20.0-40.0); MEAN CORPUSCULAR HEMOGLOBIN 30.2 uug (23.8-33.4); MEAN CORPUSCULAR HGB CONC 34 g/dL (32.5-36.3); MEAN CORPUSCULAR VOLUME 88.1 fL (73.0-96.2); MONOCYTES # (AUTO) 0.7 K/uL (2.0-10.0); MONOCYTES % (AUTO) 9.1 % (0.0-11.0); NEUTROPHILS # (AUTO) 5.7 K/uL (1.8-8.9); NEUTROPHILS % (AUTO) 70.4 % (38.5-71.5); PLATELET COUNT (AUTO) 261 K/uL (152-348); WHITE BLOOD COUNT (AUTO) 8.1 K/uL (3.6-10.2)
[2018-07-25 22:44] LABS: HEMOGLOBIN 7.2 g/dL (12.5-16.3); RED BLOOD CELL COUNT(AUTO) 2.39 MIL/uL (4.06-5.63)
[2018-07-25 22:52] LABS: POTASSIUM 3.7 mmol/L (3.5-5.1)
[2018-07-25 22:55] LABS: CREATININE 8.4 mg/dL (0.6-1.3)
[2018-07-25] MEDS ORDERED: ONDANSETRON 4 MG/2 ML VIAL ONE (23:00)
--- NOTE | 2018-07-25 23:01 | NUR ---
PATIENT RETURNED FROM CT SCAN.
[2018-07-25 23:07] LABS: BILIRUBIN,DIRECT 0.2 mg/dL (0.0-0.2); TOTAL PROTEIN, SERUM 12.4 g/dL (6.4-8.2)
--- NOTE | 2018-07-26 00:19 | NUR ---
[facility] PAGED, DR. RAMESH PRESCRIPTIONIST, PENDING CALL BACK.
--- NOTE | 2018-07-26 00:47 | NUR ---
DR. RAMESH CALLED BACK.
[2018-07-26] MEDS ORDERED: GABAPENTIN 300 MG CAPSULE ONE (00:54)
[2018-07-26] MEDS ORDERED: GABAPENTIN 300 MG CAPSULE PO ONE (01:00)
[2018-07-26] MEDS ORDERED: CLONIDINE HCL 0.2 MG TABLET ONE ×2 (01:11→01:31)
--- NOTE | 2018-07-26 01:21 | NUR ---
DR. DOMITILA RIOSD, AWAITING CALL BACK.
[2018-07-26] MEDS ORDERED: LEVOFLOXACIN 500 MG/D5W 100ML PIGGYBACK IV ONE (01:30)
[2018-07-26] MEDS ORDERED: CLONIDINE HCL 0.2 MG TABLET PO ONE (01:30)
[2018-07-26] MEDS ORDERED: LEVOFLOXACIN 500 MG/D5W 100 ML ONE (01:31)
[2018-07-26] MEDS ORDERED: LABETALOL HCL 100 MG TABLET ONE (01:38)
[2018-07-26] MEDS ORDERED: LABETALOL HCL 100 MG TABLET PO ONE (01:45)
--- NOTE | 2018-07-26 01:52 | NUR ---
[facility] CALLED, AWAITING CALL BACK FROM DR. RAMESH.
--- NOTE | 2018-07-26 02:25 | NUR ---
[facility] PAGED, AWAITING CALL BACK FROM DR. RAMESH
--- NOTE | 2018-07-26 02:45 | NUR ---
DR. RAMESH HAS NOT RESPONDED, NURSING TOOL CHASER NOTIFIED.
--- NOTE | 2018-07-26 02:47 | NUR ---
DR. RAMESH ON THE PHONE WITH DR. MCCABE.
--- NOTE | 2018-07-26 02:54 | NUR ---
Pt. admitted to [facility] , under care of Dr. RAMESH Belongs List completed. REPORT GIVEN TO TONIO BAILEY.
[2018-07-26 03:55] VITALS: BP 195/103
--- NOTE | 2018-07-26 04:00 | NUR ---
Admitted a 48 year old male with diagnosis of PNEUMONIA. Patient AAOx4. IV on R AC #20 intact and patent. AV fistula l upper arm. Stitches on left shoulder noted. Healing well. No signs of infection. Patient complaints of pain / from s/p shoulder surgery 1 week ago. PRN Tylenol administered. S/p intramedullary nails on left forearm noted. No SOB. Tele monitors placed. SR on monitor. Routine admission care done. Plan of care initiated. Safety measures implemented. Comfort provided. All needs met. Call light within reach. Will continue to monitor throughout shift. Addendum: 07/26/18 at 0546 by LEO GARCIA RN CLARIFICATION NOTED INCORRECTLY: AV SHUNT L FOREARM. S/P INTRAMEDULLARY NAILS OF L HUMERUS
[2018-07-26] MEDS: ACETAMINOPHEN 325 MG TABLET PO PRN ×2 (04:26→11:26)
[2018-07-26] MEDS: diphenhydrAMINE 25 MG CAP PO PRN (04:27)
--- NOTE | 2018-07-26 06:17 | NUR ---
Patient currently sleeping comfortably in bed. No acute distress noted. No SOB. Comfort and safety measures implemented and effective. Call light within reach. All needs met. Will endorse to morning shift accordingly. Continue plan of care.
[2018-07-26] MEDS ORDERED: DOSING BY PHARMACY-MD TO SPECIFY MED/ROUTE XX PRN (07:15)
[2018-07-26 07:41] VITALS: BP 174/90
[2018-07-26] MEDS ORDERED: diphenhydrAMINE 25 MG CAP PO PRN (07:45)
[2018-07-26] MEDS ORDERED: POLYVINYL ALCOHOL OPHT DROPS 15 ML BOTTLE EACHEYE PRN (07:45)
[2018-07-26] MEDS ORDERED: ACETAMINOPHEN 325 MG TABLET PO PRN (07:45)
[2018-07-26] MEDS ORDERED: MELATONIN 3 MG TABLET PO PRN (07:45)
[2018-07-26] MEDS: AMLODIPINE 5 MG TABLET PO SCH ×2 (09:04→20:54)
[2018-07-26] MEDS: BENAZEPRIL HCL 20 MG TABLET PO SCH (09:09)
[2018-07-26] MEDS: CYCLOBENZAPRINE HCL 10 MG TABLET PO SCH ×2 (09:11→20:54)
[2018-07-26] MEDS: PAROXETINE HCL 10 MG TABLET PO SCH (09:11)
[2018-07-26] MEDS: PANTOPRAZOLE SODIUM 40 MG TABLET.DR PO SCH (09:11)
[2018-07-26] MEDS: FOLIC ACID/VITAMIN B COMP W-C TABLET PO SCH (09:12)
[2018-07-26] MEDS: CALCIUM ACETATE 667 MG CAPSULE PO SCH ×3 (09:12→17:38)
[2018-07-26] MEDS: SEVELAMER CARBONATE 800 MG TABLET PO SCH ×3 (09:12→17:38)
[2018-07-26] MEDS: GUAIFENESIN/DEXTROMETHORPHAN 5 ML UDC PO PRN ×2 (09:13→22:27)
[2018-07-26 10:11] LABS: POTASSIUM 3.7 mmol/L (3.5-5.1)
[2018-07-26 10:19] LABS: CREATININE 9.8 mg/dL (0.6-1.3)
[2018-07-26 11:23] VITALS: BP 169/83
[2018-07-26] MEDS: CLONIDINE HCL 0.2 MG TABLET PO PRN (11:26)
[2018-07-26] MEDS: METOCLOPRAMIDE HCL 5 MG TABLET PO SCH ×2 (11:27→16:30)
--- NOTE | 2018-07-26 12:55 | NUR ---
Refuses medication because he wanted to sleep but educated pt on importance of each medications and yet still selects which medications he prefers. will continue to monitor.
[2018-07-26 14:09] VITALS: BP 182/105
[2018-07-26] MEDS: LABETALOL HCL 200 MG TABLET PO SCH ×2 (14:09→22:21)
--- NOTE | 2018-07-26 14:11 | NUR ---
Just woke up from sleep. BP measured and elevated, labetalol given. Temp better, 99.0. Will continue to monitor.
[2018-07-26 15:01] LABS: BASOPHILS # (AUTO) 0.1 K/uL (0.0-8.0); BASOPHILS % (AUTO) 0.8 % (0.0-2.0); EOSINOPHILS # (AUTO) 0.2 K/uL (0.0-0.7); EOSINOPHILS % (AUTO) 3.1 % (0.0-7.0); LYMPHOCYTES # (AUTO) 1.3 K/uL (20.0-40.0); LYMPHOCYTES % (AUTO) 19.6 % (20.5-51.5); MEAN CORPUSCULAR HEMOGLOBIN 29.6 uug (23.8-33.4); MEAN CORPUSCULAR HGB CONC 34 g/dL (32.5-36.3); MONOCYTES # (AUTO) 0.6 K/uL (2.0-10.0); MONOCYTES % (AUTO) 9.7 % (0.0-11.0); NEUTROPHILS # (AUTO) 4.4 K/uL (1.8-8.9); NEUTROPHILS % (AUTO) 66.8 % (38.5-71.5); PLATELET COUNT (AUTO) 253 K/uL (152-348); WHITE BLOOD COUNT (AUTO) 6.6 K/uL (3.6-10.2)
[2018-07-26 15:02] LABS: RED BLOOD CELL COUNT(AUTO) 2.25 MIL/uL (4.06-5.63)
[2018-07-26 15:10] LABS: HEMOGLOBIN 6.7 g/dL (12.5-16.3)
[2018-07-26 15:11] LABS: HEMATOCRIT 19.8 % (36.7-47.1)
--- NOTE | 2018-07-26 15:17 | NUR ---
NOTIFIED DR HOPE COVERING FOR DR RAMESH OF PT'S H AND HOW CRITICAL LOW 6.7 AND 19.8. WAITING FOR CALL BACK. PT HAVING HEMODIALYSIS AT THIS TIME. WILL CONTINUE TO MONITOR.
[2018-07-26 15:36] LABS: EOSINOPHILS % (MANUAL) 3 % (0-8); LYMPHOCYTES % (MANUAL) 19 % (20-40); MONOCYTES % (MANUAL) 4 % (2-10); NEUTROPHILS % (MANUAL) 74 % (42-75)
[2018-07-26 16:30] VITALS: BP 154/79
--- NOTE | 2018-07-26 17:56 | NUR ---
Notified Dr Ortiz's exchange to report H and H, waiting for call back. Pt always c/o being cold, temp checked, no fever. Offered to check blood pressure as well but refused. Refused phoslo and bassam again stated he will not eat. will cont to monitor.
--- NOTE | 2018-07-26 18:28 | NUR ---
Spoke with Dr Arroyo and 1 unit PRBC ordered to transfuse. Notified pt of order but refused to sign consent at this time. will cont to monitor.
--- NOTE | 2018-07-26 19:30 | NUR ---
PATIENT RECEIVED LYING IN BED. A/OX 4. NO SIGNS OF ACUTE DISTRESS. COMFORT MEASURES AND SAFETY MEASURES PROVIDED. BED IN LOWEST POSITION AND CALL LIGHT WITHIN REACH. CONSENT FORMED RECEIVED FOR BLOOD CONSENT.
[2018-07-26 20:05] VITALS: BP 144/81
--- NOTE | 2018-07-26 20:30 | NUR ---
PATIENT ENDORSED TO RNAMAIRANI. NO SIGNS OF ACUTE DISTRESS NOTED AT THIS TIME. SAFETY MEASURES AND COMFORT MEASURES PROVIDED. BED IN LOWEST POSITION AND CALL LIGHT WITHIN REACH. PATIENT REFUSED NORVASC AND CYCLOBENZAPRINE.
--- NOTE | 2018-07-26 21:50 | NUR ---
Patient was DC from tele. Monitor box removed and returned to the monitor worker. Comfort and safety provided. Patient has productive cough. Sleeping intermittently.
--- NOTE | 2018-07-26 22:00 | NUR ---
Received patient from TONIO Garcia. patient is sleeping in bed, no acute distress. Lab called reporting the blood transfusion is ready. patient refused to have a transfusion, wants to do it tomorrow with dialysis. Charge nurse notified.
[2018-07-27 06:44] VITALS: BP 138/87
[2018-07-27] MEDS: LABETALOL HCL 200 MG TABLET PO SCH ×4 (06:50→21:56)
[2018-07-27] MEDS: PANTOPRAZOLE SODIUM 40 MG TABLET.DR PO SCH (06:59)
[2018-07-27] MEDS: METOCLOPRAMIDE HCL 5 MG TABLET PO SCH ×3 (07:00→15:46)
--- NOTE | 2018-07-27 07:02 | NUR ---
patient refused, labetalol, reglan, protonix, very weak and drowsy. Charge nurse notified. Comfort and safety provided.
--- NOTE | 2018-07-27 07:56 | NUR ---
report given to Yamileth ELIZALDE. Patient slept well, morning weight is 128lbs. No acute distress.
[2018-07-27] MEDS: CALCIUM ACETATE 667 MG CAPSULE PO SCH ×3 (08:00→17:12)
[2018-07-27] MEDS: SEVELAMER CARBONATE 800 MG TABLET PO SCH ×3 (08:00→17:12)
[2018-07-27] MEDS: AMLODIPINE 5 MG TABLET PO SCH ×2 (08:43→21:56)
[2018-07-27] MEDS: BENAZEPRIL HCL 20 MG TABLET PO SCH (08:43)
[2018-07-27] MEDS: FOLIC ACID/VITAMIN B COMP W-C TABLET PO SCH (08:53)
[2018-07-27] MEDS: CYCLOBENZAPRINE HCL 10 MG TABLET PO SCH ×2 (08:53→21:56)
[2018-07-27] MEDS: PAROXETINE HCL 10 MG TABLET PO SCH (08:53)
--- NOTE | 2018-07-27 08:53 | NUR ---
Patient refusing morning medications despite education. Blood pressure elevated to 181/95 with pulse rate of 100. Patient refused PRN Clonidine 0.2mg, only medications taken this morning were the scheduled blood pressure medications. Charge nurse made aware.
--- NOTE | 2018-07-27 11:00 | NUR ---
Patient's oxygen saturation 88-89% on room air. Will place patient on oxygen, charge nurse made aware. Addendum: 07/27/18 at 1142 by KAYLA DE DIOS RN Oxygen saturation 93%
[2018-07-27 11:35] VITALS: BP 186/105
--- NOTE | 2018-07-27 11:59 | NUR ---
Patient agreeable to blood transfusion along with hemodialysis. Consent obtained, signed in chart.
--- NOTE | 2018-07-27 13:55 | NUR ---
Patient refusing PRN catapres for BP fo 179/93 pulse 96.
[2018-07-27 16:33] VITALS: BP 149/80
[2018-07-27 16:48] VITALS: BP 164/88
[2018-07-27 17:03] VITALS: BP 156/85
--- NOTE | 2018-07-27 17:13 | NUR ---
Blood transfusion complete, 1 unit, no reactions noted. Transfusion done with hemodialysis.
--- NOTE | 2018-07-27 18:18 | NUR ---
Patient resting comfortably in bed, no distress noted. Patient dialyzed today and one unit transfused during dialysis. Noncompliant with nursing care, refusing medication. Patient educated and aware of blood pressure being elevated, still refusing PRN medication. Will endorse care to oncoming shift.
[2018-07-27 19:41] VITALS: BP 159/83
[2018-07-28] MEDS: PAMIDRONATE DISODIUM 60 MG in IV NORMAL SALINE 500 ML IV ONE ×3 (00:06)
[2018-07-28] MEDS: LEVOFLOXACIN 500 MG/D5W 500 MG in PREMIXED 1 EACH IV SCH (00:22)
--- NOTE | 2018-07-28 01:00 | NUR ---
INFORMED BY [facility] SUPERVISER THE ANTIBIOTIC AREDIA ISN'T IN THE NIGHT LOCKER ,SO MED WILL HAVE TO BE GIVEN LATER IN THE DAY
[2018-07-28 03:44] VITALS: BP 171/98
[2018-07-28] MEDS: METOCLOPRAMIDE HCL 5 MG TABLET PO SCH ×4 (06:36→17:46)
[2018-07-28] MEDS: PANTOPRAZOLE SODIUM 40 MG TABLET.DR PO SCH (06:36)
[2018-07-28] MEDS: LABETALOL HCL 200 MG TABLET PO SCH ×3 (06:36→20:32)
--- NOTE | 2018-07-28 07:25 | NUR ---
PATIENT RECEIVED ON BED AWAKE, AAOX4 NO ACUTE DISTRESS NOTED. IV ACCESS ON RIGHT AC #20 INTACT AND PATENT. AV SHUNT ON LEFT FOREARM, BRUIT AND THRILL NOTED. DENIES SOB. PRODUCTIVE COUGH NOTED, YELLOW PINKISH SPUTUM. NO COMPLAINTS OF PAIN/DISCOMFORT AT THIS TIME. COMFORT MEASURES PROVIDED. WILL CONTINUE TO MONITOR CLOSELY. CALL LIGHT WITHIN REACH.
[2018-07-28] MEDS: CYCLOBENZAPRINE HCL 10 MG TABLET PO SCH ×2 (08:17→20:31)
[2018-07-28] MEDS: SEVELAMER CARBONATE 800 MG TABLET PO SCH ×3 (08:17→18:00)
[2018-07-28] MEDS: CALCIUM ACETATE 667 MG CAPSULE PO SCH ×3 (08:17→18:00)
[2018-07-28] MEDS: FOLIC ACID/VITAMIN B COMP W-C TABLET PO SCH (08:17)
[2018-07-28] MEDS: PAROXETINE HCL 10 MG TABLET PO SCH (08:17)
[2018-07-28] MEDS: BENAZEPRIL HCL 20 MG TABLET PO SCH (08:22)
[2018-07-28] MEDS: AMLODIPINE 5 MG TABLET PO SCH ×2 (08:23→20:31)
--- NOTE | 2018-07-28 09:00 | NUR ---
MOOK AND SONY HELD, PATIENT'S BLOOD PRESSURE IS 133/79. BP BELOW BASELINE. DID NOT ADMINISTER SINCE PATIENT'S BP HAS TENDENCY TO DROP AFTER BP MEDS GIVEN.
[2018-07-28 11:10] VITALS: BP 172/102
[2018-07-28] MEDS: CLONIDINE HCL 0.2 MG TABLET PO PRN (11:33)
--- NOTE | 2018-07-28 13:04 | NUR ---
PATIENT COMPLAINING OF NAUSEA, REQUESTED IF HE CAN HAVE ZOFRAN. CALLED [phone] AND PAGED DR. RICHARDSON GRINDING WHEEL OPERATOR. AWAITING CALLBACK.
--- NOTE | 2018-07-28 13:34 | NUR ---
RECEIVED CALL BACK FROM DR. BRISENO WITH ORDERS FOR ZOFRAN 4MG IV [id number], ORDERS NOTED AND CARRIED OUT.
[2018-07-28] MEDS ORDERED: ONDANSETRON 4 MG/2 ML VIAL IV PRN (13:45)
[2018-07-28 18:30] VITALS: BP 151/81
[2018-07-28 19:30] VITALS: BP 175/98
[2018-07-29 03:32] VITALS: BP 147/83
[2018-07-29] MEDS: LABETALOL HCL 200 MG TABLET PO SCH ×3 (06:00→22:24)
[2018-07-29] MEDS: PANTOPRAZOLE SODIUM 40 MG TABLET.DR PO SCH (06:33)
[2018-07-29] MEDS: METOCLOPRAMIDE HCL 5 MG TABLET PO SCH ×3 (06:33→16:39)
--- NOTE | 2018-07-29 06:48 | NUR ---
Patient A&O x 4, BP elevated at 1999 last night, BP meds given and was effective. Pt slept well throughout the night. No voiced concerns. All needs met. No acute event noted throughout shift. Addendum: 07/29/18 at 0749 by JOSHUA DIANE RN Labetalol held this am due to dialysis.
[2018-07-29] MEDS: CALCIUM ACETATE 667 MG CAPSULE PO SCH ×3 (08:27→18:18)
[2018-07-29] MEDS: PAROXETINE HCL 10 MG TABLET PO SCH (08:28)
[2018-07-29] MEDS: SEVELAMER CARBONATE 800 MG TABLET PO SCH ×3 (08:28→18:18)
[2018-07-29] MEDS: FOLIC ACID/VITAMIN B COMP W-C TABLET PO SCH (08:28)
[2018-07-29] MEDS: CYCLOBENZAPRINE HCL 10 MG TABLET PO SCH ×2 (08:29→22:24)
[2018-07-29] MEDS: BENAZEPRIL HCL 20 MG TABLET PO SCH (08:34)
[2018-07-29] MEDS: AMLODIPINE 5 MG TABLET PO SCH ×2 (08:34→22:25)
[2018-07-29] MEDS: ACETAMINOPHEN 325 MG TABLET PO PRN ×2 (08:35→22:32)
[2018-07-29 12:22] VITALS: BP 158/93
[2018-07-29 14:00] LABS: BASOPHILS % (AUTO) 0.5 % (0.0-2.0); EOSINOPHILS # (AUTO) 0.3 K/uL (0.0-0.7); EOSINOPHILS % (AUTO) 6.3 % (0.0-7.0); LYMPHOCYTES # (AUTO) 1.9 K/uL (20.0-40.0); LYMPHOCYTES % (AUTO) 37.5 % (20.5-51.5); MEAN CORPUSCULAR HEMOGLOBIN 29.5 uug (23.8-33.4); MEAN CORPUSCULAR HGB CONC 34 g/dL (32.5-36.3); MEAN CORPUSCULAR VOLUME 87.6 fL (73.0-96.2); MONOCYTES # (AUTO) 0.6 K/uL (2.0-10.0); MONOCYTES % (AUTO) 12.3 % (0.0-11.0); NEUTROPHILS # (AUTO) 2.2 K/uL (1.8-8.9); NEUTROPHILS % (AUTO) 43.4 % (38.5-71.5); PLATELET COUNT (AUTO) 207 K/uL (152-348)
[2018-07-29 14:01] LABS: RED BLOOD CELL COUNT(AUTO) 2.32 MIL/uL (4.06-5.63)
[2018-07-29 14:02] LABS: HEMATOCRIT 20.3 % (36.7-47.1); HEMOGLOBIN 6.9 g/dL (12.5-16.3)
[2018-07-29 14:11] LABS: BILIRUBIN,TOTAL 0.9 mg/dL (0.2-1.0); MAGNESIUM 2.4 mg/dL (1.8-2.4); PHOSPHOROUS 4.6 mg/dL (2.5-4.9); TOTAL PROTEIN, SERUM 10.6 g/dL (6.4-8.2)
[2018-07-29 14:16] LABS: CREATININE 9.5 mg/dL (0.6-1.3)
--- NOTE | 2018-07-29 15:02 | NUR ---
labetalol held b/c dialysis now
[2018-07-29 15:42] VITALS: BP 152/89
[2018-07-29 16:11] VITALS: BP 158/93
[2018-07-29 16:19] VITALS: BP 161/84
--- NOTE | 2018-07-29 16:25 | NUR ---
1 unit of blood was given by Dialysis nurse , VS stable
--- NOTE | 2018-07-29 18:26 | NUR ---
Patient A&O x 4, BP elevated at 160's , 1 unit of blood was admin by dialysis nurse. no SOB or distress All needs met. No acute event noted throughout shift. Safety maintained
[2018-07-29] MEDS ORDERED: PAMIDRONATE DISODIUM 60 MG in IV NORMAL SALINE 500 ML IV ONE (18:30)
[2018-07-29 19:33] VITALS: BP 161/88
--- NOTE | 2018-07-29 20:00 | NUR ---
RECEIVED PATIENT AWAKE AND ALERT IN BED WITH NO COMPLAINTS OF PAIN OR ACUTE DISTRESS AT THIS TIME. IV AREDIA CURRENTLY RUNNING AT 86.6mL/HR WITH NO ADVERSE EFFECT VERBALIZED OR NOTED IN PATIENT. ALL SAFETY AND FALL PRECAUTION MEASURES ARE IN PLACE. CALL LIGHT AND PERSONAL ITEMS WITHIN REACH AT ALL TIMES. WILL CONTINUE TO MONITOR.
--- NOTE | 2018-07-29 20:15 | NUR ---
RIGHT AC IV SITE BECAME DISLODGED AND WAS REMOVED INTACT. CONTACTED ER TO REQUEST NURSE TO REINSERT NEW IV SITE.
--- NOTE | 2018-07-29 20:20 | NUR ---
IV AREDIA STARTED ON AM SHIFT CANNOT COMPLETE INFUSION DUE TO IV CATHETER DISLODGMENT.
--- NOTE | 2018-07-29 20:50 | NUR ---
ER NURSE TRIED REINSERTING IV, FIRST SITE BLEW AND WHEN ATTEMPTING SECOND TIME ABOVE THE ELBOW, PATIENT REFUSED. I SPOKE WITH PATIENT AND ADVISED IMPORTANCE OF RECEIVING PRESCRIBED IV MEDICATIONS, PATIENT SAID WILL ALLOW ANOTHER ATTEMPT.
[2018-07-29] MEDS: GUAIFENESIN/DEXTROMETHORPHAN 5 ML UDC PO PRN (22:32)
[2018-07-29] MEDS: diphenhydrAMINE 25 MG CAP PO PRN (23:09)
--- NOTE | 2018-07-30 00:50 | NUR ---
MULTIPLE ATTEMPTS BY 3 DIFFERENT NURSES TO REINSERT IV CATH HAVE FAILED. PATIENT IS REFUSING FURTHER ATTEMPTS, WANTS PICC LINE INSERTION. NURSE ADVISED WILL NOTIFY .
--- NOTE | 2018-07-30 01:00 | NUR ---
SPOKE WITH MD RICHARDSON REGARDING IV SITE DISLODGEMENT AND THE INABILITY TO REINSERT IV BY MULTIPLE NURSES. I FURTHER EXPLAINED THAT PATIENT HAS PRESCRIBED IV AREDIA AND IV ANTIBIOTIC NEEDING TO BE INFUSED BUT IS REQUESTING PICC LINE INSERTION TOMORROW. MD RICHARDSON SAID OKAY TO ORDER PICC LINE INSERTION FOR AM. ORDERS NOTED AND CARRIED OUT.
[2018-07-30] MEDS: LEVOFLOXACIN 500 MG/D5W 500 MG in PREMIXED 1 EACH IV SCH (02:00)
--- NOTE | 2018-07-30 02:20 | NUR ---
PATIENT STATES THAT HE CANNOT SLEEP. I OFFERED PATIENT MELATONIN AND PROVIDED EXPLANATION OF MEDICATION ALONG WITH IT'S USES AND HOW IT COULD ASSIST IN HELPING TO SLEEP. PATIENT SAID OK.
[2018-07-30 03:29] VITALS: BP 157/93
--- NOTE | 2018-07-30 03:30 | NUR ---
PATIENT STILL UNABLE TO SLEEP. SAYS HE NEEDS SOMETHING STRONGER.
[2018-07-30] MEDS: LABETALOL HCL 200 MG TABLET PO SCH ×3 (06:16→21:48)
[2018-07-30] MEDS: PANTOPRAZOLE SODIUM 40 MG TABLET.DR PO SCH (06:16)
--- NOTE | 2018-07-30 06:20 | NUR ---
PATIENT STATES HE DID NOT SLEEP AT ALL LAST NIGHT. I APOLOGIZED AND ADVISED I WOULD HAVE AM NURSE FOLLOW UP WITH MD TO SEE IF CAN HAVE SOMETHING ELSE TO ASSIST HIM TO SLEEP AT NIGHT. PATIENT STATES HE NEEDS SOMETHING FOR ANXIETY, WELL. I ADVISED I WOULD ALSO HAVE AM NURSE FOLLOW UP WITH MD REGARDING ANTI-ANXIETY MEDICATION. PATIENT WAS GIVEN 2100 MEDS BUT WAS UNABLE TO INFUSE 0200 IV ANTIBIOTIC DUE TO DISLODGED RIGHT AC IV CATH THAT WAS UNABLE TO BE REPLACED AFTER MULTIPLE ATTEMPTS BY 3 DIFFERENT NURSES. PATIENT HAD DIALYSIS ON 07/29/18 WITH 2 LITERS REMOVED. BP AT END OF SHIFT IS 157/93, HR IS 79. PRESCRIBED 0700 MEDICATIONS PROVIDED ORDERED AND TOLERATED WELL. ALL SAFETY AND FALL PRECAUTION MEASURES REMAIN IN PLACE. PERSONAL ITEMS AND CALL FOSTER WITHIN REACH AT ALL TIMES. WILL PROVIDE REPORT TO AM SHIFT.
[2018-07-30] MEDS: METOCLOPRAMIDE HCL 5 MG TABLET PO SCH ×4 (07:30→17:19)
[2018-07-30] MEDS: FOLIC ACID/VITAMIN B COMP W-C TABLET PO SCH (08:54)
[2018-07-30] MEDS: BENAZEPRIL HCL 20 MG TABLET PO SCH (08:54)
[2018-07-30] MEDS: AMLODIPINE 5 MG TABLET PO SCH ×2 (08:55→21:48)
[2018-07-30] MEDS: PAROXETINE HCL 10 MG TABLET PO SCH (08:56)
[2018-07-30] MEDS: CALCIUM ACETATE 667 MG CAPSULE PO SCH ×4 (08:56→17:19)
[2018-07-30] MEDS: CYCLOBENZAPRINE HCL 10 MG TABLET PO SCH ×2 (08:57→21:47)
[2018-07-30] MEDS: SEVELAMER CARBONATE 800 MG TABLET PO SCH ×4 (08:58→17:25)
--- NOTE | 2018-07-30 09:04 | NUR ---
PICC LINE NURSE DANY IN THE ROOM, ID CHECK WITH 2 NURSES
[2018-07-30 09:42] LABS: BASOPHILS % (AUTO) 0.4 % (0.0-2.0); EOSINOPHILS # (AUTO) 0.4 K/uL (0.0-0.7); MONOCYTES # (AUTO) 0.5 K/uL (2.0-10.0)
[2018-07-30] MEDS: CLONIDINE HCL 0.2 MG TABLET PO PRN ×2 (10:11→21:47)
[2018-07-30 10:19] LABS: EOSINOPHILS % (AUTO) 6.6 % (0.0-7.0); LYMPHOCYTES # (AUTO) 1.6 K/uL (20.0-40.0); LYMPHOCYTES % (AUTO) 28.1 % (20.5-51.5); MEAN CORPUSCULAR HEMOGLOBIN 29.3 uug (23.8-33.4); MEAN CORPUSCULAR HGB CONC 34 g/dL (32.5-36.3); MEAN CORPUSCULAR VOLUME 87.4 fL (73.0-96.2); MONOCYTES % (AUTO) 9.3 % (0.0-11.0); NEUTROPHILS # (AUTO) 3.2 K/uL (1.8-8.9); NEUTROPHILS % (AUTO) 55.6 % (38.5-71.5); PLATELET COUNT (AUTO) 214 K/uL (152-348); RED BLOOD CELL COUNT(AUTO) 2.91 MIL/uL (4.06-5.63); WHITE BLOOD COUNT (AUTO) 5.7 K/uL (3.6-10.2)
[2018-07-30 10:21] LABS: HEMATOCRIT 25.5 % (36.7-47.1); HEMOGLOBIN 8.5 g/dL (12.5-16.3)
[2018-07-30 11:54] VITALS: BP 186/98
[2018-07-30] MEDS ORDERED: IPRATROPIUM BROMIDE 0.5 MG/2.5 ML NEBU NEB PRN (13:15)
[2018-07-30] MEDS ORDERED: ALBUTEROL SULFATE 2.5 MG/3 ML NEBU NEB PRN (13:15)
[2018-07-30] MEDS ORDERED: HYDROCODONE/APAP 5-325MG TABLET PO PRN (13:15)
[2018-07-30] MEDS: OXYCODONE/APAP 5-325 MG TABLET PO PRN (15:03)
[2018-07-30 15:22] VITALS: BP 155/78
[2018-07-30] MEDS ORDERED: LEVOFLOXACIN 500 MG/D5W 500 MG in PREMIXED 1 EACH IV SCH (17:00)
--- NOTE | 2018-07-30 19:27 | NUR ---
Patient A&O x 4, BP elevated at 160's , no SOB or distress All needs met. No acute event noted throughout shift. abx WERE GIVEN Safety maintained
[2018-07-30 20:00] VITALS: BP 165/92
--- NOTE | 2018-07-30 20:00 | NUR ---
RECEIVED PATIENT ASLEEP IN BED, SLEEPING COMFORTABLY, AND EASY TO AROUSE. NO COMPLAINTS OF PAIN OR DISCOMFORT AT THIS TIME. NEW RIGHT UPPER ARM MIDLINE PATENT AND INTACT. ALL SAFETY AND FALL PRECAUTION MEASURES IN PLACE. PERSONAL ITEMS AND CALL LIGHT ARE WITHIN REACH AT ALL TIMES. WILL CONTINUE TO MONITOR.
--- NOTE | 2018-07-31 01:03 | NUR ---
PATIENT STILL HAS STITCHES IN LEFT UPPER EXTREMITY FROM SURGERY PERFORMED 4 WKS AGO. PATIENT STATED THAT HE DIDN'T KNOW WHERE TO GO TO HAVE STITCHES REMOVED WHEN HE WAS DISCHARGED LAST TIME. I PLACED ORDER FOR WOUND CONSULT TO HAVE STITCHES REMOVED.
[2018-07-31] MEDS: OXYCODONE/APAP 5-325 MG TABLET PO PRN ×3 (04:47→23:48)
[2018-07-31 05:27] VITALS: BP 158/91
[2018-07-31 06:10] LABS: HEPATITIS B SURFACE AB Non Reactive (.); HEPATITIS B SURFACE AG Negative (Negative)
[2018-07-31] MEDS: PANTOPRAZOLE SODIUM 40 MG TABLET.DR PO SCH (07:00)
[2018-07-31] MEDS: LABETALOL HCL 200 MG TABLET PO SCH ×3 (07:00→22:13)
[2018-07-31] MEDS: METOCLOPRAMIDE HCL 5 MG TABLET PO SCH ×3 (07:30→16:30)
[2018-07-31] MEDS: SEVELAMER CARBONATE 800 MG TABLET PO SCH ×3 (08:00→18:00)
[2018-07-31] MEDS: AMLODIPINE 5 MG TABLET PO SCH ×2 (09:00→22:13)
[2018-07-31] MEDS: CYCLOBENZAPRINE HCL 10 MG TABLET PO SCH ×2 (09:00→22:12)
[2018-07-31] MEDS: FOLIC ACID/VITAMIN B COMP W-C TABLET PO SCH (09:00)
[2018-07-31] MEDS: PAROXETINE HCL 10 MG TABLET PO SCH (09:00)
[2018-07-31] MEDS: BENAZEPRIL HCL 20 MG TABLET PO SCH (09:00)
--- NOTE | 2018-07-31 09:00 | NUR ---
AM MEDS HELD UNTIL AFTER DIALYSIS
--- NOTE | 2018-07-31 10:00 | NUR ---
PT. REFUSING ROUTINE MEDS UNTIL AFTER DIALYSIS
[2018-07-31 10:07] LABS: BASOPHILS % (AUTO) 0.3 % (0.0-2.0); EOSINOPHILS # (AUTO) 0.4 K/uL (0.0-0.7); EOSINOPHILS % (AUTO) 7.1 % (0.0-7.0); HEMATOCRIT 22.5 % (36.7-47.1); HEMOGLOBIN 7.6 g/dL (12.5-16.3); LYMPHOCYTES # (AUTO) 1.6 K/uL (20.0-40.0); LYMPHOCYTES % (AUTO) 30.8 % (20.5-51.5); MEAN CORPUSCULAR HEMOGLOBIN 29.6 uug (23.8-33.4); MEAN CORPUSCULAR HGB CONC 34 g/dL (32.5-36.3); MEAN CORPUSCULAR VOLUME 87.7 fL (73.0-96.2); MONOCYTES # (AUTO) 0.4 K/uL (2.0-10.0); MONOCYTES % (AUTO) 8.1 % (0.0-11.0); NEUTROPHILS # (AUTO) 2.7 K/uL (1.8-8.9); NEUTROPHILS % (AUTO) 53.7 % (38.5-71.5); PLATELET COUNT (AUTO) 193 K/uL (152-348); RED BLOOD CELL COUNT(AUTO) 2.57 MIL/uL (4.06-5.63); WHITE BLOOD COUNT (AUTO) 5.1 K/uL (3.6-10.2)
[2018-07-31 10:20] LABS: MAGNESIUM 2.5 mg/dL (1.8-2.4); PHOSPHOROUS 4.5 mg/dL (2.5-4.9); POTASSIUM 4.8 mmol/L (3.5-5.1)
[2018-07-31 10:22] LABS: CREATININE 10.4 mg/dL (0.6-1.3)
[2018-07-31 11:42] VITALS: BP 153/83
[2018-07-31 15:02] VITALS: BP 165/92
--- NOTE | 2018-07-31 20:00 | NUR ---
RECEIVED PATIENT ASLEEP IN BED, RESTING COMFORTABLY, EASY TO AROUSE. NO COMPLAINTS OF PAIN OR DISCOMFORT AT THIS TIME. PATIENT IS WAITING FOR DIALYSIS TREATMENT. ALL SAFETY AND FALL PRECAUTION MEASURES ARE IN PLACE. CALL LIGHT AND PERSONAL ITEMS WITHIN REACH AT ALL TIMES. WILL CONTINUE TO MONITOR.
[2018-07-31 20:22] VITALS: BP 164/93
[2018-08-01 04:07] VITALS: BP 150/84
--- NOTE | 2018-08-01 06:00 | NUR ---
PATIENT SLEPT COMFORTABLY THROUGHOUT NIGHT. COMPLAINT OF PAIN WAS RELIEVED WITH PRESCRIBED MEDICATION. SAFETY AND FALL PRECAUTIONS REMAIN IN PLACE. PERSONAL ITEMS AND CALL LIGHT ARE WITHIN REACH AT ALL TIMES.
[2018-08-01] MEDS: PANTOPRAZOLE SODIUM 40 MG TABLET.DR PO SCH (06:36)
[2018-08-01] MEDS: LABETALOL HCL 200 MG TABLET PO SCH ×2 (06:36→14:00)
[2018-08-01] MEDS: CYCLOBENZAPRINE HCL 10 MG TABLET PO SCH (07:46)
[2018-08-01] MEDS: OXYCODONE/APAP 5-325 MG TABLET PO PRN ×2 (07:46→15:51)
[2018-08-01] MEDS: METOCLOPRAMIDE HCL 5 MG TABLET PO SCH ×2 (08:00→12:43)
[2018-08-01 09:22] LABS: BASOPHILS % (AUTO) 0.8 % (0.0-2.0); EOSINOPHILS # (AUTO) 0.4 K/uL (0.0-0.7); EOSINOPHILS % (AUTO) 7.3 % (0.0-7.0); HEMATOCRIT 23.1 % (36.7-47.1); HEMOGLOBIN 7.7 g/dL (12.5-16.3); LYMPHOCYTES # (AUTO) 1.4 K/uL (20.0-40.0); LYMPHOCYTES % (AUTO) 25.9 % (20.5-51.5); MEAN CORPUSCULAR HEMOGLOBIN 29.3 uug (23.8-33.4); MEAN CORPUSCULAR HGB CONC 33 g/dL (32.5-36.3); MEAN CORPUSCULAR VOLUME 87.9 fL (73.0-96.2); MONOCYTES # (AUTO) 0.4 K/uL (2.0-10.0); MONOCYTES % (AUTO) 6.8 % (0.0-11.0); NEUTROPHILS # (AUTO) 3.1 K/uL (1.8-8.9); NEUTROPHILS % (AUTO) 59.2 % (38.5-71.5); PLATELET COUNT (AUTO) 199 K/uL (152-348); RED BLOOD CELL COUNT(AUTO) 2.63 MIL/uL (4.06-5.63); WHITE BLOOD COUNT (AUTO) 5.2 K/uL (3.6-10.2)
[2018-08-01] MEDS: SEVELAMER CARBONATE 800 MG TABLET PO SCH ×2 (09:28→12:43)
[2018-08-01] MEDS: BENAZEPRIL HCL 20 MG TABLET PO SCH (09:28)
[2018-08-01 09:29] LABS: MAGNESIUM 2.2 mg/dL (1.8-2.4); PHOSPHOROUS 3.6 mg/dL (2.5-4.9); POTASSIUM 4.8 mmol/L (3.5-5.1)
[2018-08-01] MEDS: FOLIC ACID/VITAMIN B COMP W-C TABLET PO SCH (09:29)
[2018-08-01] MEDS: AMLODIPINE 5 MG TABLET PO SCH (09:29)
[2018-08-01] MEDS: PAROXETINE HCL 10 MG TABLET PO SCH (09:29)
[2018-08-01 09:30] LABS: CREATININE 8.1 mg/dL (0.6-1.3)
[2018-08-01 13:11] VITALS: BP 154/92
[2018-08-01 16:49] VITALS: BP 154/91
--- NOTE | 2018-08-01 17:45 | NUR ---
PICC LINE FLUSHED HOME INSTRUCTIONS AND RX REVIEWED WITH PT. PT. TRANSPORTED HOME BY CAB FROM [facility].
[2018-08-04 14:11] LABS: *IGG SUBCLASS 1 5136 mg/dL (248-810); *IGG SUBCLASS 2 18 mg/dL (130-555); *IGG SUBCLASS 3 8 mg/dL (15-102); *IGG SUBCLASS 4 2 mg/dL (2-96); *IMMUNOGLOBULIN G, SERUM 6407 mg/dL (700-1600)
== END 2018-08-01 18:15 | DRG 139 ==
LOC: ER 21:47 → TELE3 07-26 03:04 → MEDSURG3 07-26 21:48
PROVIDERS: ADMIT Internal Medicine Nephrology; ATTEND Internal Medicine Nephrology
PROC: 5A1D70Z Performance of Urinary Filtration, Intermittent, Less than 6 Hours Per Day (ICD-10-PCS; principal; 2018-07-26)
PROC: 30233N1 Transfusion of Nonautologous Red Blood Cells into Peripheral Vein, Percutaneous Approach (ICD-10-PCS; 2018-07-27)
PROC: 05HY33Z Insertion of Infusion Device into Upper Vein, Percutaneous Approach (ICD-10-PCS; 2018-07-30)
DX: J15.9 Unspecified bacterial pneumonia (principal); C90.00 Multiple myeloma not having achieved remission; C79.51 Secondary malignant neoplasm of bone; I13.11 Hypertensive heart and chronic kidney disease without heart failure, with stage 5 chronic kidney disease, or end stage renal disease; E83.52 Hypercalcemia; I67.2 Cerebral atherosclerosis; E83.39 Other disorders of phosphorus metabolism; M84.522D Pathological fracture in neoplastic disease, left humerus, subsequent encounter for fracture with routine healing; N18.6 End stage renal disease; Z99.2 Dependence on renal dialysis; Z79.899 Other long term (current) drug therapy; Z91.14 Patient's other noncompliance with medication regimen; Z87.891 Personal history of nicotine dependence; Z76.5 Malingerer [conscious simulation]; K21.9 Gastro-esophageal reflux disease without esophagitis; D63.0 Anemia in neoplastic disease; H53.8 Other visual disturbances; G89.29 Other chronic pain; I70.0 Atherosclerosis of aorta
CPT/HCPCS: 36415; 70030-TC; 70450; 71045; 83605; 83735; 84100; 85025; 85730; 86706; 86850; 86900; 86901; 86920; 87040; 87070; 87340; 90937; 93005; 97110; 97165; A4663; C1751; G0378; J1956; J2405; J2430; J7040; J7050; J8597; P9016-BL; P9021; Q0163

== ENCOUNTER 2018-08-05 12:42 | Emergency (ER) | payer OTHER ==
[~2018-08-05] VITALS: Ht 170.2 cm; Wt 61.2 kg
[~2018-08-05 12:42] MED LIST changes: +ACET325T53 PO; +AMLO5TAB4 PO; -AMLO5TAB9 PO; +BENA40TA67 PO; -BENA40TA8 PO; -CALC667C PO; +CALC667T2 PO; +CLON0.2T PO; -CLON0.2T12 PO; +CYCL5TAB PO; +DIPH25CA83 PO; -FOLI0.8T2 PO; +GUAI237L83 PO; -LABE200T5 PO; +LABE200T8 PO; +MELA3TAB PO; -METO-295 PO; +METO5TAB87 PO; +PANT40TA2 PO; -PANT40TA4 PO; +PARO-154 PO; -PARO10TA86 PO; +POLY15DR57 OP; +SEVE800T8 PO; +VIT1TABL44 PO
--- NOTE | 2018-08-05 13:01 | NUR ---
PT A/OX4, BIB PRIVATE AMBULANCE FROM [facility], C/O NOSEBLEED SINCE 010 TODAY. NO ACTIVE BLEEDING NOTED AT THIS TIME. VS WNL. PT PRESENTS W/ A SHOULDER SLING ON THE LUE S/P ORIF OF LUE 1 MONTH AGO. PT REPORTS HE IS A DIALYSIS PT AND IS DUE FOR A DIALYSIS TX TODAY, WHICH HE MISSED. FISTULA PRESENT ON L FOREARM. PT DENIES C/P, SOB, N/V/D, DIZZINESS, HEADACHE.
[2018-08-05] MEDS ORDERED: LIDOCAINE 4% TOPICAL 50 ML BOTTLE ONE (13:15)
[2018-08-05] MEDS ORDERED: LIDOCAINE 4% TOPICAL 50 ML BOTTLE TP ONE (13:15)
[2018-08-05] MEDS ORDERED: TRAM50TA2 PO (13:18)
[2018-08-05] MEDS ORDERED: IPRA3AMP23 IH (13:18)
[2018-08-05] MEDS ORDERED: OXYC-128 PO (13:18)
[2018-08-05 13:21] LABS: BASOPHILS % (AUTO) 0.4 % (0.0-2.0); EOSINOPHILS # (AUTO) 0.4 K/uL (0.0-0.7); EOSINOPHILS % (AUTO) 5.4 % (0.0-7.0); HEMATOCRIT 23.7 % (36.7-47.1); LYMPHOCYTES # (AUTO) 1.8 K/uL (20.0-40.0); LYMPHOCYTES % (AUTO) 25.7 % (20.5-51.5); MEAN CORPUSCULAR HEMOGLOBIN 29.6 uug (23.8-33.4); MEAN CORPUSCULAR HGB CONC 34 g/dL (32.5-36.3); MEAN CORPUSCULAR VOLUME 87.5 fL (73.0-96.2); MONOCYTES # (AUTO) 0.8 K/uL (2.0-10.0); NEUTROPHILS # (AUTO) 3.9 K/uL (1.8-8.9); NEUTROPHILS % (AUTO) 56.5 % (38.5-71.5); PLATELET COUNT (AUTO) 233 K/uL (152-348); RED BLOOD CELL COUNT(AUTO) 2.71 MIL/uL (4.06-5.63); WHITE BLOOD COUNT (AUTO) 6.8 K/uL (3.6-10.2)
[2018-08-05 13:32] LABS: BILIRUBIN,DIRECT 0.2 mg/dL (0.0-0.2); BILIRUBIN,TOTAL 0.7 mg/dL (0.2-1.0); POTASSIUM 5.2 mmol/L (3.5-5.1); TOTAL PROTEIN, SERUM 11.4 g/dL (6.4-8.2)
[2018-08-05 13:34] LABS: CREATININE 10.6 mg/dL (0.6-1.3)
--- NOTE | 2018-08-05 13:38 | NUR ---
NOSEBLEED IN L NARE PACKED W/ RHINO ROCKET BY ARCELIA SILVESTRE.
--- NOTE | 2018-08-05 13:44 | NUR ---
SPOKE W/ KAT ELIZALDE FROM [facility], INFORMED NURSE OF PT'S D/C BACK TO THEIR FACILITY.
--- NOTE | 2018-08-05 13:52 | NUR ---
AIDE TRIP #[id number] ETA 1600
[2018-08-05] MEDS ORDERED: ONDANSETRON ODT 4 MG TAB.RAPDIS ONE (13:59)
[2018-08-05] MEDS ORDERED: HYDROCODONE/APAP 5-325MG TABLET PO ONE (14:30)
[2018-08-05] MEDS ORDERED: HYDROCODONE/APAP 5-325MG TABLET ONE (14:35)
--- NOTE | 2018-08-05 16:29 | NUR ---
Call placed to KINA Zhao at this time is 1645.
--- NOTE | 2018-08-05 17:22 | NUR ---
Patient discharged to home in stable conditon. Written and verbal after care instructions given. Patient verbalizes understanding of instructions. ALL BELONGINGS W/ PT. PT SELF-AMBULATED TO [facility] W/O [facility]. PT WILL BE D/C BACK TO [facility] VIA AMBULNZ UN[address], PRIVATE AMBULANCE.
[2018-08-05 17:23] VITALS: BP 156/98
== END 2018-08-05 17:25 | disposition home or self-care (01) ==
LOC: ER 12:42
DX: R04.0 Epistaxis (principal); I12.0 Hypertensive chronic kidney disease with stage 5 chronic kidney disease or end stage renal disease; N18.6 End stage renal disease; Z99.2 Dependence on renal dialysis; K21.9 Gastro-esophageal reflux disease without esophagitis; F12.10 Cannabis abuse, uncomplicated; Z79.899 Other long term (current) drug therapy
CPT/HCPCS: 30901; 36415; 85025; 85730; A4663; Q0162

== ENCOUNTER 2018-08-07 20:51 | Emergency (ER) | payer OTHER ==
[~2018-08-07] VITALS: Ht 170.2 cm; Wt 60.8 kg
[~2018-08-07 20:51] MED LIST changes: -CALC667T2 PO; +IPRA3AMP23 IH; +OXYC-128 PO; +TRAM50TA2 PO
--- NOTE | 2018-08-07 21:10 | NUR ---
Patient bib [facility] ambulance, pt coming from [facility]. Here for re-evaluation of nasal packing. Respiratory even and unlabored, no cough no sob. No cardiovascular distress noted. No GI/ distress. Patient in bed at lowest position, sr upx2, call light within reach. Fall precautions implemented per protocol.
[2018-08-07] MEDS ORDERED: MORPHINE SULFATE 4 MG/1 ML DISP.SYRIN IV ONE (21:15)
[2018-08-07] MEDS ORDERED: ACETAMINOPHEN 325 MG TABLET PO ONE (21:45)
[2018-08-07] MEDS ORDERED: ACETAMINOPHEN 325 MG TABLET ONE (21:58)
--- NOTE | 2018-08-07 22:48 | NUR ---
Call placed for panel call with ENZO/Luz Elena, awaiting call back.
--- NOTE | 2018-08-07 23:11 | NUR ---
2nd call placed for Luz Elena. Awaiting phone call.
--- NOTE | 2018-08-07 23:27 | NUR ---
[id number] E[facility]100.
--- NOTE | 2018-08-08 00:52 | NUR ---
Patient discharged to home in stable conditon. Written and verbal after care instructions given. Patient verbalizes understanding of instructions. Transport is here to pick patient up and transfer back to [facility]. In stable condition.
--- NOTE | 2018-08-08 00:55 | NUR ---
Report given to KENNETH dorsey
[2018-08-08 00:56] VITALS: BP 150/88
== END 2018-08-08 00:58 | disposition home or self-care (01) ==
LOC: ER 20:54
DX: Z48.01 Encounter for change or removal of surgical wound dressing (principal); J22 Unspecified acute lower respiratory infection; E87.70 Fluid overload, unspecified; K21.9 Gastro-esophageal reflux disease without esophagitis; F12.10 Cannabis abuse, uncomplicated; N18.6 End stage renal disease; Z99.2 Dependence on renal dialysis; Z79.899 Other long term (current) drug therapy
CPT/HCPCS: 71045; A4663

== ENCOUNTER 2018-08-10 12:51 | Emergency (ER) | payer OTHER ==
[~2018-08-10] VITALS: Ht 167.6 cm; Wt 70.8 kg
[2018-08-10] MEDS ORDERED: ONDANSETRON ODT 4 MG TAB.RAPDIS ONE (13:11)
[2018-08-10] MEDS ORDERED: ONDANSETRON ODT 4 MG TAB.RAPDIS SL ONE (13:15)
[2018-08-10 13:33] LABS: BASOPHILS % (AUTO) 0.3 % (0.0-2.0); EOSINOPHILS # (AUTO) 0.3 K/uL (0.0-0.7); EOSINOPHILS % (AUTO) 3.4 % (0.0-7.0); LYMPHOCYTES # (AUTO) 1.8 K/uL (20.0-40.0); MEAN CORPUSCULAR HGB CONC 33 g/dL (32.5-36.3); MONOCYTES # (AUTO) 1.2 K/uL (2.0-10.0); MONOCYTES % (AUTO) 13.9 % (0.0-11.0); NEUTROPHILS # (AUTO) 5.1 K/uL (1.8-8.9); NEUTROPHILS % (AUTO) 61.4 % (38.5-71.5); PLATELET COUNT (AUTO) 232 K/uL (152-348); WHITE BLOOD COUNT (AUTO) 8.4 K/uL (3.6-10.2)
[2018-08-10 13:37] LABS: HEMATOCRIT 20.2 % (36.7-47.1); HEMOGLOBIN 6.7 g/dL (12.5-16.3); RED BLOOD CELL COUNT(AUTO) 2.32 MIL/uL (4.06-5.63)
[2018-08-10 13:44] LABS: BILIRUBIN,DIRECT 0.2 mg/dL (0.0-0.2); BILIRUBIN,TOTAL 0.9 mg/dL (0.2-1.0); TOTAL PROTEIN, SERUM 10.9 g/dL (6.4-8.2)
[2018-08-10 13:56] LABS: LYMPHOCYTES % (MANUAL) 14 % (20-40); NEUTROPHILS % (MANUAL) 70 % (42-75)
[2018-08-10 13:57] LABS: EOSINOPHILS % (MANUAL) 4 % (0-8); MONOCYTES % (MANUAL) 12 % (2-10)
--- NOTE | 2018-08-10 14:10 | NUR ---
suzanne correa talked to dr. stevenson over the phone. pt to be d/cosmo to the fascility. dr. stevenson will aldo the fascility regarding the pt coming back and plan of care.
--- NOTE | 2018-08-10 14:15 | NUR ---
called christie to transfer the pt back to [facility], eta 1615, trip number [phone]
[2018-08-10] MEDS ORDERED: OXYCODONE/APAP 5-325 MG TABLET ONE (14:23)
[2018-08-10] MEDS ORDERED: OXYCODONE/APAP 5-325 MG TABLET PO ONE (14:30)
--- NOTE | 2018-08-10 14:34 | NUR ---
ambulanz at bedside to transfer the pt back to facility. pt deneis nausea at this time. pt toleratd the p[o challenge.
[2018-08-10 14:37] VITALS: BP 158/88
== END 2018-08-10 14:40 | disposition home or self-care (01) ==
LOC: ER 12:51
DX: I12.0 Hypertensive chronic kidney disease with stage 5 chronic kidney disease or end stage renal disease (principal); N18.6 End stage renal disease; D64.9 Anemia, unspecified; E87.1 Hypo-osmolality and hyponatremia; C90.00 Multiple myeloma not having achieved remission; K21.9 Gastro-esophageal reflux disease without esophagitis; F12.10 Cannabis abuse, uncomplicated; Z99.2 Dependence on renal dialysis; Z79.899 Other long term (current) drug therapy
CPT/HCPCS: 36415; 83690; 85025; 85730; 93005; A4663; Q0162

== ENCOUNTER 2018-08-20 08:41 | Inpatient (IN) | payer OTHER ==
[~2018-08-20] VITALS: Ht 167.6 cm; Wt 61.7 kg
[~2018-08-20 08:41] MED LIST changes: -OXYC-128 PO
--- NOTE | 2018-08-20 09:43 | NUR ---
PT IS IN ROOM #1A. DR GOODWIN EVALUATED THE PT.
[2018-08-20] MEDS ORDERED: PIPERACILLIN SODIUM/TAZOBACTAM 3.375 G in IV DEXTROSE 5% 50 ML IV ONE (10:00)
[2018-08-20] MEDS ORDERED: VANCOMYCIN IV 1,000 MG in IV DEXTROSE 5% 250 ML IV ONE (10:00)
[2018-08-20] MEDS ORDERED: SWABABLE VALVE TRANSFER SET EA MC ONE (10:51)
[2018-08-20] MEDS ORDERED: IOHEXOL 350 100 ML INFUS..BTL ONE (10:51)
[2018-08-20] MEDS ORDERED: IV NORMAL SALINE 250 ML IV ONE (10:51)
[2018-08-20] MEDS ORDERED: VANCOMYCIN IV 200 ML ONE (11:39)
[2018-08-20] MEDS ORDERED: PIPERACILLIN/TAZOBACTAM/D5W 50 ML IV ONE (11:39)
[2018-08-20 11:40] LABS: EOSINOPHILS # (AUTO) 0.4 K/uL (0.0-0.7); LYMPHOCYTES # (AUTO) 1.5 K/uL (20.0-40.0); MONOCYTES # (AUTO) 0.7 K/uL (2.0-10.0); MONOCYTES % (AUTO) 11.5 % (0.0-11.0)
[2018-08-20 11:45] LABS: BASOPHILS % (AUTO) 0.3 % (0.0-2.0); CREATININE 6.7 mg/dL (0.6-1.3); EOSINOPHILS % (AUTO) 5.5 % (0.0-7.0); MEAN CORPUSCULAR HEMOGLOBIN 29.1 uug (23.8-33.4); MEAN CORPUSCULAR HGB CONC 33 g/dL (32.5-36.3); MEAN CORPUSCULAR VOLUME 88.2 fL (73.0-96.2); NEUTROPHILS # (AUTO) 3.9 K/uL (1.8-8.9); NEUTROPHILS % (AUTO) 59.7 % (38.5-71.5); POTASSIUM 4.5 mmol/L (3.5-5.1); RED BLOOD CELL COUNT(AUTO) 2.57 MIL/uL (4.06-5.63); WHITE BLOOD COUNT (AUTO) 6.5 K/uL (3.6-10.2)
[2018-08-20] MEDS ORDERED: HYDROMORPHONE 1 MG/1 ML DISP.SYRIN ONE (11:45)
[2018-08-20 11:46] LABS: HEMATOCRIT 22.7 % (36.7-47.1); HEMOGLOBIN 7.5 g/dL (12.5-16.3); PLATELET COUNT (AUTO) 169 K/uL (152-348)
[2018-08-20 11:57] LABS: BILIRUBIN,DIRECT 0.3 mg/dL (0.0-0.2); BILIRUBIN,TOTAL 1.4 mg/dL (0.2-1.0); TOTAL PROTEIN, SERUM 10.9 g/dL (6.4-8.2)
[2018-08-20] MEDS ORDERED: HYDROMORPHONE 1 MG/1 ML DISP.SYRIN IV ONE (12:00)
--- NOTE | 2018-08-20 13:52 | NUR ---
Received shift report from TONIO Wilburn.
--- NOTE | 2018-08-20 13:54 | NUR ---
REPORT WAS GIVEN TO HUMANITIES AND LANGUAGES PROFESSOR.
--- NOTE | 2018-08-20 14:16 | NUR ---
PT WAS TRANSFERED TO TELEMETRY ROOM #322.
--- NOTE | 2018-08-20 15:00 | NUR ---
MD aware of patient's arrival on unit. Will place orders.
[2018-08-20 15:02] VITALS: BP 180/106
[2018-08-20] MEDS ORDERED: Z GUARD REMEDY PASTE 57 GM TUBE TOP PRN (17:00)
[2018-08-20] MEDS ORDERED: Medication Not On Formulary EA (Diphenhydramine Hcl (Benadryl) 25 MG) PO PRN (17:00)
[2018-08-20] MEDS ORDERED: ZOLPIDEM 5 MG TABLET PO PRN (17:00)
[2018-08-20] MEDS: METOCLOPRAMIDE HCL 5 MG TABLET PO SCH (17:00)
[2018-08-20] MEDS ORDERED: MAGNESIUM HYDROXIDE 30 ML LIQUID UDC PO PRN (17:00)
[2018-08-20] MEDS ORDERED: ACETAMINOPHEN 325 MG TABLET PO PRN ×2 (17:00)
[2018-08-20] MEDS ORDERED: Medication Not On Formulary EA (Cyclobenzaprine Hcl 5 MG) PO SCH (17:00)
[2018-08-20] MEDS: PANTOPRAZOLE SODIUM 40 MG TABLET.DR PO SCH (17:00)
[2018-08-20] MEDS ORDERED: MELATONIN 3 MG TABLET PO PRN (17:00)
[2018-08-20] MEDS ORDERED: Medication Not On Formulary EA (Sevelamer Carbonate (Renvela) 1,600 MG) PO SCH (17:00)
--- NOTE | 2018-08-20 17:35 | NUR ---
Patient educated about hypertension and medications to control blood pressure as well as PRN medication for hypertension. Patient refuses medication despite education
[2018-08-20] MEDS ORDERED: diphenhydrAMINE 25 MG CAP PO PRN (17:45)
[2018-08-20] MEDS ORDERED: POLYVINYL ALCOHOL OPHT DROPS 15 ML BOTTLE EACHEYE PRN (17:45)
[2018-08-20] MEDS: SEVELAMER CARBONATE 800 MG TABLET PO SCH ×2 (18:00→18:19)
[2018-08-20] MEDS: CYCLOBENZAPRINE HCL 10 MG TABLET PO SCH (18:16)
[2018-08-20] MEDS: NITROGLYCERIN OINT 1 GM PACKET TP SCH (18:18)
--- NOTE | 2018-08-20 19:09 | NUR ---
Patient resting in bed, no distress noted or complaints of pain. Patient currently undergoing hemodialysis, Lisset RN at bedside. Will endorse care to oncoming shift. Patient noncompliant with medication and nursing care.
--- NOTE | 2018-08-20 21:20 | NUR ---
HD is complete. 1200ml taken out.
[2018-08-20] MEDS: AMLODIPINE 5 MG TABLET PO SCH (21:55)
[2018-08-20] MEDS: LABETALOL HCL 200 MG TABLET PO SCH (21:56)
--- NOTE | 2018-08-20 22:41 | NUR ---
DR Laguna called, ordered 0.5mg Dilaudid Q6PRN IV for pain, and left shoulder x-ray series for AM.
[2018-08-20 23:02] VITALS: BP 165/96
[2018-08-20] MEDS: HYDROMORPHONE 1 MG/1 ML DISP.SYRIN IV PRN (23:12)
[2018-08-21 04:00] VITALS: BP 170/97
[2018-08-21] MEDS: HYDROMORPHONE 1 MG/1 ML DISP.SYRIN IV PRN ×4 (05:16→23:41)
[2018-08-21] MEDS: NITROGLYCERIN OINT 1 GM PACKET TP SCH ×4 (05:23→18:00)
[2018-08-21] MEDS: LABETALOL HCL 200 MG TABLET PO SCH ×3 (05:29→21:02)
--- NOTE | 2018-08-21 05:54 | NUR ---
patient did not sleep all night, had periods of SOB while on room air, no distress while on O2. pain was managed with Dilaudid, patient was compliant with BP oral meds. Refused Nitrobid paste. Comfort and safety measures are in place, no acute distress noted during the shift.
[2018-08-21 06:32] LABS: BASOPHILS % (AUTO) 0.4 % (0.0-2.0); EOSINOPHILS # (AUTO) 0.4 K/uL (0.0-0.7); EOSINOPHILS % (AUTO) 5.5 % (0.0-7.0); HEMATOCRIT 21.3 % (36.7-47.1); MEAN CORPUSCULAR HEMOGLOBIN 29.6 uug (23.8-33.4); MEAN CORPUSCULAR HGB CONC 33 g/dL (32.5-36.3); MEAN CORPUSCULAR VOLUME 89.1 fL (73.0-96.2); MONOCYTES # (AUTO) 0.7 K/uL (2.0-10.0); MONOCYTES % (AUTO) 10.6 % (0.0-11.0); NEUTROPHILS # (AUTO) 4.3 K/uL (1.8-8.9); NEUTROPHILS % (AUTO) 67.5 % (38.5-71.5); PLATELET COUNT (AUTO) 153 K/uL (152-348); WHITE BLOOD COUNT (AUTO) 6.3 K/uL (3.6-10.2)
[2018-08-21 06:37] LABS: HEMOGLOBIN 7.1 g/dL (12.5-16.3); RED BLOOD CELL COUNT(AUTO) 2.39 MIL/uL (4.06-5.63)
[2018-08-21 07:01] LABS: CREATININE 5.8 mg/dL (0.6-1.3); MAGNESIUM 2.1 mg/dL (1.8-2.4); PHOSPHOROUS 4.1 mg/dL (2.5-4.9); POTASSIUM 4.5 mmol/L (3.5-5.1)
[2018-08-21] MEDS ORDERED: ZOLPIDEM 5 MG TABLET PO PRN (07:15)
--- NOTE | 2018-08-21 07:15 | NUR ---
RECEIVED PATIENT IN BED AWAKE ALERT AND ORIENTED WITH O2 BY MASK WITH NO S/S OF SOB WITH DIALYSIS IN PROGRESS AT THIS TIME AND IS TOLERATING WELL WILL CONTINUE TO OBSERVE.
[2018-08-21] MEDS: SEVELAMER CARBONATE 800 MG TABLET PO SCH ×3 (08:00→18:00)
[2018-08-21] MEDS: BENAZEPRIL HCL 20 MG TABLET PO SCH (09:00)
[2018-08-21] MEDS: METOCLOPRAMIDE HCL 5 MG TABLET PO SCH ×3 (09:00→17:00)
[2018-08-21] MEDS: FOLIC ACID/VITAMIN B COMP W-C TABLET PO SCH (09:00)
[2018-08-21] MEDS: PANTOPRAZOLE SODIUM 40 MG TABLET.DR PO SCH (09:00)
[2018-08-21] MEDS: AMLODIPINE 5 MG TABLET PO SCH ×2 (09:00→20:59)
[2018-08-21] MEDS: PAROXETINE HCL 10 MG TABLET PO SCH (09:00)
[2018-08-21] MEDS: CYCLOBENZAPRINE HCL 10 MG TABLET PO SCH ×2 (09:00→17:00)
--- NOTE | 2018-08-21 10:00 | NUR ---
DIALYSIS COMPLETED AND 2500 REMOVED AND PATIENT TOLERATED IT WELL.
[2018-08-21 12:06] VITALS: BP 151/82
[2018-08-21 15:07] VITALS: BP 164/101
--- NOTE | 2018-08-21 17:30 | NUR ---
MEDICATED IV PUSH FOR C/O PAIN LEFT SHOULDER ORDERED AND HELPFUL.
--- NOTE | 2018-08-21 18:44 | NUR ---
RESULT FOR MRSA NARES NOTED MD NOTIFIED WITH NEW ORDERS PATIENT PLACED ON ISOLATION AT THIS TIME
--- NOTE | 2018-08-21 19:30 | NUR ---
Received patient in bed watching TV. No signs of acute distress noted. Complains of some pain, no complaints of SOB. Patient is using mask on 5L saturating at 94% MARISSA midline in tact and patent. Patient able to make needs known. Patient is on contact precautions for MRSA in the nares. Safety measures initiated. Bed is low and locked, call light within reach, side rails up x2. Will continue to monitor.
[2018-08-21 20:00] VITALS: BP 183/107
[2018-08-21] MEDS: MUPIROCIN 2% OINT 22 GM TUBE NS SCH (20:59)
[2018-08-21] MEDS: GUAIFENESIN/DEXTROMETHORPHAN 5 ML UDC PO PRN (21:59)
[2018-08-22 00:02] VITALS: BP 176/101
--- NOTE | 2018-08-22 00:05 | NUR ---
BP was 176/101, explained to patient that it was still high and that he can take a PRN medication for when SBP >160 Educated the patient, but he still refused. Will continue to monitor.
[2018-08-22 04:30] VITALS: BP 188/101
[2018-08-22] MEDS: LABETALOL HCL 200 MG TABLET PO SCH ×4 (05:13→22:50)
[2018-08-22] MEDS: NITROGLYCERIN OINT 1 GM PACKET TP SCH ×5 (05:28→23:06)
[2018-08-22] MEDS: HYDROMORPHONE 1 MG/1 ML DISP.SYRIN IV PRN ×3 (05:42→20:38)
[2018-08-22 06:44] LABS: CREATININE 5.6 mg/dL (0.6-1.3); MAGNESIUM 2.2 mg/dL (1.8-2.4); PHOSPHOROUS 4.4 mg/dL (2.5-4.9)
[2018-08-22 06:55] LABS: BASOPHILS % (AUTO) 0.2 % (0.0-2.0); EOSINOPHILS # (AUTO) 0.3 K/uL (0.0-0.7); EOSINOPHILS % (AUTO) 4.6 % (0.0-7.0); LYMPHOCYTES # (AUTO) 1.1 K/uL (20.0-40.0); MEAN CORPUSCULAR HGB CONC 33 g/dL (32.5-36.3); MEAN CORPUSCULAR VOLUME 89.9 fL (73.0-96.2); MONOCYTES # (AUTO) 0.7 K/uL (2.0-10.0); MONOCYTES % (AUTO) 10.2 % (0.0-11.0); NEUTROPHILS # (AUTO) 4.6 K/uL (1.8-8.9); PLATELET COUNT (AUTO) 153 K/uL (152-348); WHITE BLOOD COUNT (AUTO) 6.7 K/uL (3.6-10.2)
[2018-08-22 07:00] LABS: RED BLOOD CELL COUNT(AUTO) 2.32 MIL/uL (4.06-5.63)
[2018-08-22 07:04] LABS: HEMATOCRIT 20.8 % (36.7-47.1); HEMOGLOBIN 6.9 g/dL (12.5-16.3)
--- NOTE | 2018-08-22 07:30 | NUR ---
RECEIVED PATIENT IN BED ASLEEP WITH EYES CLOSED BUT IS EASILY AROUSABLE ON ROUND NO S/S OF PAIN OR DISCOMFORTS AT THIS TIME LEFT ARM AV SHUNT IS INTACT WITH NO S/S OF REDNESS AT THIS TIME O2 BY MASK INTACT WITH NO SOB WILL CONTINUE TO OBSERVE.
--- NOTE | 2018-08-22 07:41 | NUR ---
Relayed critical labs to Dr. Ortiz hemoglobin 6.9 and hematocrit 20.8. No new orders.
[2018-08-22 07:47] LABS: EOSINOPHILS % (MANUAL) 3 % (0-8); LYMPHOCYTES % (MANUAL) 18 % (20-40); MONOCYTES % (MANUAL) 9 % (2-10); NEUTROPHILS % (MANUAL) 70 % (42-75)
[2018-08-22] MEDS: METOCLOPRAMIDE HCL 5 MG TABLET PO SCH ×3 (08:42→16:11)
[2018-08-22] MEDS: SEVELAMER CARBONATE 800 MG TABLET PO SCH ×3 (08:42→18:00)
[2018-08-22] MEDS: PANTOPRAZOLE SODIUM 40 MG TABLET.DR PO SCH (08:42)
[2018-08-22] MEDS: CYCLOBENZAPRINE HCL 10 MG TABLET PO SCH ×2 (08:43→16:11)
[2018-08-22] MEDS: PAROXETINE HCL 10 MG TABLET PO SCH (08:43)
[2018-08-22] MEDS: FOLIC ACID/VITAMIN B COMP W-C TABLET PO SCH (08:44)
[2018-08-22] MEDS: BENAZEPRIL HCL 20 MG TABLET PO SCH (08:45)
[2018-08-22] MEDS: MUPIROCIN 2% OINT 22 GM TUBE NS SCH ×2 (08:46→20:31)
[2018-08-22] MEDS: AMLODIPINE 5 MG TABLET PO SCH ×2 (08:47→20:31)
--- NOTE | 2018-08-22 09:16 | NUR ---
PATIENT SEEN AND EXAMINED BY DR RAMESH WITH ORDERS MD AWARE THAT H/H IS 6.9/20.8 STATED TO TRANSFUSE PATIENT TOMORROW WITH HEMODIALYSIS AND HE ALSO WANTED TO STOP THE O2 SO OXYGEN TURNED OFF AND AFTER 10 MINUTES PATIENT COMPLAINED OF FEELING LIKE HE CANNOT BREATH EASY SATURATION CHECKED AND ITS 71-73 % ON ROOM AIR DR RAMESH STILL HERE AND NOTIFIED AND HE STATED TO GO AHEAD AND PUT HIM BACK ON O2.
[2018-08-22 11:15] VITALS: BP 165/87
--- NOTE | 2018-08-22 12:00 | NUR ---
PATIENT CONTINUES TO BE NON COMPLIANT WITH MAJORITY OF HIS MEDICATIONS DR RAMESH AWARE WITH NO NEW ORDERS AT THIS TIME.
[2018-08-22 15:18] VITALS: BP 182/103
[2018-08-22] MEDS: CLONIDINE HCL 0.2 MG TABLET PO PRN (16:11)
--- NOTE | 2018-08-22 16:12 | NUR ---
BLOOD PRESSURE IS 180/99 MEDICATED WITH CLONIDINE ORDERED PATIENT IS ASSYMPTOMATIC AT THIS TIME.REMAIN ON O2 BY MASK SATS ARE WITHIN 93-95% SOME SOBE NOTED.MADE COMFORTABLE WILL CONTINUE TO OBSERVE.
--- NOTE | 2018-08-22 16:20 | NUR ---
CONSCENT OBTAINED FOR BLOOD TRANSFUSSION AND DOCUMENTED PATIENT WILL RECEIVE BLOOD WITH DIALYSIS TOMORROW.
--- NOTE | 2018-08-22 18:50 | NUR ---
RESTING WITH O2 BY MASK APPETITE REMAINS VERY POOR MD AWARE DR RAMESH WAS NOTIFIED RE RESULT OF XRAY OF HIS LEFT SHOULDER THAT WAS DONE YESTERDAY WITH NO NEW ORDERS AT THIS TIME
--- NOTE | 2018-08-22 19:40 | NUR ---
Received patient asleep on high back rest, with oxygen support at 6lpm via face mask, tolerated. Patient has a midline on his right upper arm, patent and intact. Patient arousable, alert and oriented x 4. Bed in low position, locked, side rails up for safety. Noise and lights subdued. Will continue to monitor.
[2018-08-22 20:05] VITALS: BP 185/101
--- NOTE | 2018-08-22 22:00 | NUR ---
Patient's blood pressure is a little bit lower after dose of amlodipine but still elevated. Patient educated that his blood pressure is still elevated and the due Labetalol can help lower the blood pressure, however patient still declined to take due labetalol states it does not help him. Patient also declined the nitro ointment application. Will continue to monitor.
[2018-08-23] VITALS (8 sets, daily range): BP systolic 149–194; BP diastolic 91–105
[2018-08-23] MEDS: HYDROMORPHONE 1 MG/1 ML DISP.SYRIN IV PRN ×3 (03:00→20:08)
[2018-08-23] MEDS: NITROGLYCERIN OINT 1 GM PACKET TP SCH ×3 (06:00→17:10)
[2018-08-23] MEDS: LABETALOL HCL 200 MG TABLET PO SCH ×3 (06:07→22:00)
--- NOTE | 2018-08-23 07:25 | NUR ---
RECEIVED ASLEEP WITH EYES CLOSED AROUSES EASILY REMAINS ON O2 BY MASK WITH NO SOB AT THIS TIME ALERT AND ORIENTED DENIES PAIN OR DISCOMFORTS AV SHUNT LEFT ARM IS INTACT WITH BRUIT AND THRILL CALL LIGHTS AND PERSONAL BELONGINGS PLACED WITHIN EASY REACH MADE COMFORTABLE AND WILL CONTINUE TO OBSERVE.
[2018-08-23] MEDS: METOCLOPRAMIDE HCL 5 MG TABLET PO SCH ×3 (09:02→16:29)
[2018-08-23] MEDS: FOLIC ACID/VITAMIN B COMP W-C TABLET PO SCH (09:02)
[2018-08-23] MEDS: PAROXETINE HCL 10 MG TABLET PO SCH (09:02)
[2018-08-23] MEDS: CYCLOBENZAPRINE HCL 10 MG TABLET PO SCH ×2 (09:02→16:29)
[2018-08-23] MEDS: PANTOPRAZOLE SODIUM 40 MG TABLET.DR PO SCH (09:02)
[2018-08-23] MEDS: AMLODIPINE 5 MG TABLET PO SCH ×2 (09:03→20:08)
[2018-08-23] MEDS: MUPIROCIN 2% OINT 22 GM TUBE NS SCH ×2 (09:03→20:09)
[2018-08-23] MEDS: BENAZEPRIL HCL 20 MG TABLET PO SCH (09:03)
[2018-08-23] MEDS: SEVELAMER CARBONATE 800 MG TABLET PO SCH ×3 (09:05→17:10)
[2018-08-23] MEDS ORDERED: diphenhydrAMINE 50 MG CAPSULE PO ONE ×2 (09:45)
[2018-08-23] MEDS ORDERED: ACETAMINOPHEN ES 500 MG TABLET PO ONE (09:45)
--- NOTE | 2018-08-23 12:08 | NUR ---
DIRECTOR DIGITAL COMMUNICATIONS HERE AND STARTING DIALYSIS BLOOD PRESSURE AT THIS TIME IS 171/95 PATIENT REFUSED THE ROUTINE BLOOD PRESSURE MEDS AT THIS TIME UNABLE TO GIVE HIS PRN ORDERED BECAUSE OF THE DIALYSIS IN PROGRESS.PATIENT WILL BE TRANSFUSED ORDERED WITH DIALYSIS.
[2018-08-23] MEDS ORDERED: diphenhydrAMINE 25 MG CAP PO ONE (12:30)
--- NOTE | 2018-08-23 12:44 | NUR ---
BENADRYL AND TYLENOL GIVEN IN PREPARATION FOR BLOOD TRANSFUSSION ORDERED
[2018-08-23] MEDS: CLONIDINE HCL 0.2 MG TABLET PO PRN (14:21)
--- NOTE | 2018-08-23 14:58 | NUR ---
ONE UNIT OF PRBC TRANSFUSED BY THE DIALYSIS NURSE ORDERED PATIENT IS AFEBRILE AND TOLERATED WELL WILL CONTINUE TO OBSERVE.
--- NOTE | 2018-08-23 17:14 | NUR ---
RESTING SLEEPING OFF AND ON NO ADVERSE OR ALLERGIC REACTIONS FROM DIALYSIS AND BLOOD TRANSFUSSION BLOOD PRESSURE IS BETTER AT THIS TIME PATIENT CONTINUES TO REFUSE TO EAT AND REFUSES HIS MEDICATIONS TAKES MOSTLY NEPRO DRINK WILL CONTINUE TO EDUCATE PATIENT ON THE IMPORTANCE OF TAKING HIS MEDICATIONS ORDERED AND BETTER NUTRITION EXPRESSED UNDERSTANDING AT THIS TIME.
--- NOTE | 2018-08-23 19:20 | NUR ---
Received patient lying in bed. AAOx4. In no acute distress. On O2 at 6LPM via mask in place. O2 sat at 96%. Noted with occasional productive cough and able to spit out phlegm. Dialysis site on left arm intact. Right arm midline intact and patent. Isolation precaution observed. Safety measure initiated and call santos within reach.
--- NOTE | 2018-08-23 22:48 | NUR ---
Patient refused to have blood pressure taken and refused Labetalol. Teaching provided but continue to refuse it. Stated "I don't want it".
[2018-08-24] MEDS: LABETALOL HCL 200 MG TABLET PO SCH ×4 (00:03→22:00)
--- NOTE | 2018-08-24 00:10 | NUR ---
Patient decided to take Labetalol that was due at 2200 after checking his blood pressure which was 183/100 and HR 88. Refused to take his Nitro bid, even after education was provided, stated "That doesn't work for me". Also offered cough medication but patient also refused it and stated "That doesn't work for me too". Encourage to keep his O2 in place to help with SOB and states understanding.
[2018-08-24 00:21] VITALS: BP 183/100
[2018-08-24 01:21] VITALS: BP 175/105
[2018-08-24] MEDS: CLONIDINE HCL 0.2 MG TABLET PO PRN ×3 (01:26→16:40)
[2018-08-24] MEDS: HYDROMORPHONE 1 MG/1 ML DISP.SYRIN IV PRN ×3 (02:08→17:58)
[2018-08-24 02:09] LABS: HEPATITIS B SURFACE AB Non Reactive (.); HEPATITIS B SURFACE AG Negative (Negative)
[2018-08-24] MEDS: GUAIFENESIN/DEXTROMETHORPHAN 5 ML UDC PO PRN (05:29)
[2018-08-24] MEDS: ONDANSETRON 4 MG/2 ML VIAL IV PRN (05:29)
[2018-08-24] MEDS: HYDROCODONE/APAP 5-325MG TABLET PO PRN ×2 (05:52→20:46)
[2018-08-24] MEDS: NITROGLYCERIN OINT 1 GM PACKET TP SCH ×5 (06:00→23:32)
--- NOTE | 2018-08-24 06:02 | NUR ---
AAOx4. In no acute distress. On O2 at 6LPM via mask in place. Noted with occasional productive cough with small amount of hemoptysis. Provided Mobile PRN per order and Dilaudid PRN per order for complain of pain. Patient refuses to have VS taken this morning and refused to take routine dose of Labetalol and Nitro Bid even after provided health teaching and benefits of taking medication patient continue to refused and stated "I don't want it". NSR on tele at 85/min. Dialysis site on left arm intact with dressing in place. Right arm midline intact and patent. Isolation precaution observed. Needs attended to and met. Safety measure maintained and call santos within reach.
[2018-08-24 06:39] LABS: MAGNESIUM 2.4 mg/dL (1.8-2.4); PHOSPHOROUS 3.7 mg/dL (2.5-4.9); POTASSIUM 4.3 mmol/L (3.5-5.1)
[2018-08-24 06:51] LABS: BASOPHILS % (AUTO) 0.2 % (0.0-2.0); EOSINOPHILS # (AUTO) 0.2 K/uL (0.0-0.7); EOSINOPHILS % (AUTO) 3.8 % (0.0-7.0); HEMATOCRIT 23.3 % (36.7-47.1); HEMOGLOBIN 7.6 g/dL (12.5-16.3); LYMPHOCYTES % (AUTO) 17.7 % (20.5-51.5); MEAN CORPUSCULAR HGB CONC 33 g/dL (32.5-36.3); MEAN CORPUSCULAR VOLUME 88.6 fL (73.0-96.2); MONOCYTES # (AUTO) 0.5 K/uL (2.0-10.0); MONOCYTES % (AUTO) 8.5 % (0.0-11.0); NEUTROPHILS % (AUTO) 69.8 % (38.5-71.5); PLATELET COUNT (AUTO) 158 K/uL (152-348); RED BLOOD CELL COUNT(AUTO) 2.63 MIL/uL (4.06-5.63); WHITE BLOOD COUNT (AUTO) 5.8 K/uL (3.6-10.2)
--- NOTE | 2018-08-24 07:30 | NUR ---
RECEIVED PATIENT ASLEEP EASILY AROUSABLE ON ROUNDS COMFORTABLE AT THIS TIME WITH O2 BY MASK WITH NO SHORTNESS OF BREATH AT THIS TIME.TELE IS SR PATIENT CONTINUES TO BE NON COMPLIANT PER REPODT DESPITE EDUCATION RE NEED TO BE COMPLIANT DUE TO HIS CONDITION EXPRESSES UNDERSTANDING BUT STILL REMAINS ARGUMENTATIVE TO HOW HE THINKS THAT THE DOCTOR IS GIVING HIM WAY TOO MANY DRUGS WILL CONTINUE TO OBSERVE.
[2018-08-24] MEDS: FOLIC ACID/VITAMIN B COMP W-C TABLET PO SCH (08:30)
[2018-08-24] MEDS: SEVELAMER CARBONATE 800 MG TABLET PO SCH ×3 (08:30→17:57)
[2018-08-24 08:31] VITALS: BP 183/100
[2018-08-24] MEDS: METOCLOPRAMIDE HCL 5 MG TABLET PO SCH ×3 (08:31→16:40)
[2018-08-24] MEDS: AMLODIPINE 5 MG TABLET PO SCH ×3 (08:31→21:00)
[2018-08-24] MEDS: PANTOPRAZOLE SODIUM 40 MG TABLET.DR PO SCH (08:31)
[2018-08-24] MEDS: PAROXETINE HCL 10 MG TABLET PO SCH (08:31)
[2018-08-24] MEDS: CYCLOBENZAPRINE HCL 10 MG TABLET PO SCH ×2 (08:31→16:41)
[2018-08-24] MEDS: BENAZEPRIL HCL 20 MG TABLET PO SCH (08:31)
[2018-08-24] MEDS: MUPIROCIN 2% OINT 22 GM TUBE NS SCH ×3 (08:35→21:00)
--- NOTE | 2018-08-24 09:44 | NUR ---
RECEIVED A CALL FROM THE LAB BLOOD CULTUER RESULT SHOWS GRAM POSITIVE [facility] IN [employer] CALLED AND NOTIFIED DR RAMESH WITH NO NEW ORDERS AT THIS TIME.
[2018-08-24 11:26] VITALS: BP 168/99
--- NOTE | 2018-08-24 13:10 | NUR ---
DR RAMESH HERE TO SEE PATIENT STATED TO CHANGE THE MID LINE STATED THATS THE SOURCE OF THE INFECTION HE ALSO CALLED DR MCCALL AND LEFT HIM A MESSGE RE CHECKING PATIENTS LEFT SHOULDER XRAY.THE CONTRACTS REPRESENTATIVE NOTIFIED OF ORDER TO CHANGE MID LINE STATED WILL CALL THE MID LINE NURSE.
[2018-08-24] MEDS ORDERED: SIMETHICONE 40 MG/0.6 ML, 30ML BOTTLE PO PRN (13:15)
[2018-08-24] MEDS ORDERED: HYDROMORPHONE 1 MG/1 ML DISP.SYRIN IV ONE (13:15)
--- NOTE | 2018-08-24 13:39 | NUR ---
CLINICAL PHARMACY NOTE:VANCOMYCIN DOSING Request for vancomycin dosing on 48y/o male 167.63cm 60.55kg for sepsis Temp 98.9 BUN 44 Scr 7.0 WBC 5.8 blood culture 1 set gram + cocci in clusters HD patient will dose by level. Give vancomycin 1gm ivpb today.
[2018-08-24] MEDS ORDERED: SIMETHICONE 80 MG TAB.CHEW PO PRN (14:30)
[2018-08-24] MEDS ORDERED: VANCOMYCIN IV 1 G in PREMIXED 0 EACH IV ONE (15:00)
--- NOTE | 2018-08-24 15:30 | NUR ---
PICC LINE/MID LINE RN HERE REMOVED PATIENT PREVIOUS MID LINE AND REINSERTED TO HIS UPPER ARM DOUBLE LUMEN CONTINUE HIS VANCOMICIN ORDERED WITH NO ADVERSE OR ALLERGIC REACTIONS AT THIS TIME.
[2018-08-24 16:13] VITALS: BP 168/103
[2018-08-24] MEDS ORDERED: LEVOFLOXACIN 750MG/D5W 750 MG in PREMIXED 1 EACH IV SCH (18:00)
--- NOTE | 2018-08-24 18:17 | NUR ---
PATIENT SEEN AND EXAMINED BY DR LARSEN WITH ORDER FOR QUANTIFERON TB GOLD PLUS INFECTION CONTROL NOTIFIED STATED PATIENT HAS TO BE TRANSFERED OUT TO A NEGATIVE PRESSURE ROOM.INFORMATION SECURITY ANALYST HERE AND AWARE.
--- NOTE | 2018-08-24 18:25 | NUR ---
CALLED DR CORDERO OFFICE SPOKE WITH [place] GRAY PATIENT WILL NEED TO TRANSFER TO ANOTHER HOSPITAL WITH A NEGATIVE PRESSURE ROOM STATED THAT DR RICHARDSON IS UNDERBASTER WILL PAGE HIM
--- NOTE | 2018-08-24 18:46 | NUR ---
DR RICHARDSON RETURNED CALL AND STATED OK TO DISCHARGE PATIENT TO ANOTHER ACUTE HOSPITAL THAT HAS A BED.ENRIQUE WATER QUALITY ANALYST AWARE.
--- NOTE | 2018-08-24 18:54 | NUR ---
PER LAB QUANTIFERO TB GOLD PLUS LAB IS A SEND OUT AND CANNOT BE DRAWN TONITE WILL BE DRAWN TOMORROW MORNING IF PATIENT IS STILL HERE ENDORSED.
--- NOTE | 2018-08-24 19:30 | NUR ---
patient received lying in bed. no signs of acute distress at this time. safety and comfort measures provided. will continue care. transfer to [facility] cancelled at this time on my shift per charge nurseAspen.
[2018-08-24] MEDS ORDERED: LEVOFLOXACIN 750MG/D5W 750 MG in PREMIXED 1 EACH IV ONE (20:00)
--- NOTE | 2018-08-24 20:00 | NUR ---
patient refused norvasc and bactroban. educated patient on reason for the medication and still refusing. patient is aware of his current blood pressure and reason for bactroban.
[2018-08-24 20:19] VITALS: BP 157/96
--- NOTE | 2018-08-24 20:46 | NUR ---
C/O of pain. administered norco. tolerated well.
[2018-08-24] MEDS ORDERED: MUPIROCIN 2% OINT 22 GM TUBE NS SCH (21:00)
--- NOTE | 2018-08-24 23:34 | NUR ---
patient refused taking v/s. patient also refusing labetalol and nitro ointment. educated patient on the medication and still refusing at this time.
[2018-08-25 00:18] VITALS: BP 166/78
--- NOTE | 2018-08-25 00:32 | NUR ---
patient bp at 166/78 and refusing to take prn clonidine despite education about this medication. he states, "my bp is fine at this time."
[2018-08-25] MEDS: HYDROMORPHONE 1 MG/1 ML DISP.SYRIN IV PRN ×4 (00:43→21:45)
--- NOTE | 2018-08-25 00:44 | NUR ---
c/o of pain. administered dilaudid. pt. tolerated well.
[2018-08-25] MEDS: HYDROCODONE/APAP 5-325MG TABLET PO PRN ×3 (01:17→18:46)
--- NOTE | 2018-08-25 01:19 | NUR ---
c/o of pain. administered norco. tolerated well.
[2018-08-25 06:00] VITALS: BP 144/97
[2018-08-25] MEDS: NITROGLYCERIN OINT 1 GM PACKET TP SCH ×3 (06:00→18:00)
[2018-08-25] MEDS: LABETALOL HCL 200 MG TABLET PO SCH ×3 (06:18→22:18)
--- NOTE | 2018-08-25 06:26 | NUR ---
c/o of pain norco administered. patient tolerated well.
--- NOTE | 2018-08-25 06:27 | NUR ---
patient refusing nitro ointment at this time despite education on why it is medically necessary.
[2018-08-25 06:34] LABS: BASOPHILS % (AUTO) 0.5 % (0.0-2.0); EOSINOPHILS # (AUTO) 0.3 K/uL (0.0-0.7); EOSINOPHILS % (AUTO) 4.9 % (0.0-7.0); HEMATOCRIT 22.3 % (36.7-47.1); LYMPHOCYTES # (AUTO) 1.1 K/uL (20.0-40.0); LYMPHOCYTES % (AUTO) 20.2 % (20.5-51.5); MEAN CORPUSCULAR HEMOGLOBIN 29.1 uug (23.8-33.4); MEAN CORPUSCULAR HGB CONC 33 g/dL (32.5-36.3); MEAN CORPUSCULAR VOLUME 87.8 fL (73.0-96.2); MONOCYTES # (AUTO) 0.6 K/uL (2.0-10.0); MONOCYTES % (AUTO) 11.4 % (0.0-11.0); NEUTROPHILS # (AUTO) 3.5 K/uL (1.8-8.9); PLATELET COUNT (AUTO) 164 K/uL (152-348); RED BLOOD CELL COUNT(AUTO) 2.54 MIL/uL (4.06-5.63); WHITE BLOOD COUNT (AUTO) 5.5 K/uL (3.6-10.2)
--- NOTE | 2018-08-25 06:35 | NUR ---
patient slept intermittently. pain medication administered throughout the night. no signs of acute distress patient lying in bed watching tv and communicating to me clearly what he is watching. safety and comfort measures provided. all medications refused except pain medications and labetalol due in the morning administered. will endorse care to morning shift. Addendum: 08/27/18 at 7 by FERMIN MAE RN patient did not refuse administration of Levaquin administered on my shift as well.
[2018-08-25 06:46] LABS: HEMOGLOBIN 7.4 g/dL (12.5-16.3)
--- NOTE | 2018-08-25 06:51 | NUR ---
c/o pain. administered dilaudid. tolerated well.
[2018-08-25 06:58] LABS: MAGNESIUM 2.4 mg/dL (1.8-2.4); POTASSIUM 4.8 mmol/L (3.5-5.1); VANCOMYCIN,RANDOM 24.8 ug/mL (18.0-26.0)
[2018-08-25 06:59] LABS: CREATININE 9.1 mg/dL (0.6-1.3)
--- NOTE | 2018-08-25 07:32 | NUR ---
CREATININE 9.1 CRITICAL LAB REPORTED TO ME AT 0715. THIS IS A REOCCURRING ISSUE AND MD IS AWARE OF THE CREATININE PATIENT IS RECEIVING DIALYSIS. MD IS AWARE OF CREATINE TREND. DISCUSSED WITH CHARGE, NELI.
--- NOTE | 2018-08-25 07:45 | NUR ---
Received patient awake in bed. AAOx4. On 6L o2 via facemask. Hemoptysis noted. MD aware. Dialysis scheduled for today. Midline on MARISSA double lumen intact and patent. AV shunt on left forearm noted. Airborne isolation observed. Safety and comfort provided. Call light within reach. All needs met. Will continue to monitor throughout shift.
[2018-08-25] MEDS: BENAZEPRIL HCL 20 MG TABLET PO SCH (08:33)
[2018-08-25] MEDS: FOLIC ACID/VITAMIN B COMP W-C TABLET PO SCH (08:34)
[2018-08-25] MEDS: PAROXETINE HCL 10 MG TABLET PO SCH (08:34)
[2018-08-25] MEDS: SEVELAMER CARBONATE 800 MG TABLET PO SCH ×3 (08:34→18:47)
[2018-08-25] MEDS: PANTOPRAZOLE SODIUM 40 MG TABLET.DR PO SCH (08:34)
[2018-08-25] MEDS: METOCLOPRAMIDE HCL 5 MG TABLET PO SCH ×3 (08:34→18:46)
[2018-08-25] MEDS: CYCLOBENZAPRINE HCL 10 MG TABLET PO SCH ×2 (08:35→18:47)
[2018-08-25] MEDS: AMLODIPINE 5 MG TABLET PO SCH ×2 (08:35→21:35)
[2018-08-25] MEDS: MUPIROCIN 2% OINT 22 GM TUBE NS SCH ×2 (08:42→21:00)
[2018-08-25 08:43] VITALS: BP 167/97
--- NOTE | 2018-08-25 10:29 | NUR ---
Clinical Pharmacy Note: Vancomycin Dosing per Pharmacy Subjective: Vancomycin IV to continue on this 48 yo male patient on HD for sepsis (per ID note, Clinical sepsis, GPC bacteremia, Acute respiratory failure, +/-PNA) Objective: BUN 61/Scr 9.1 WBC 5.5 Temperature 98.2 Pre-HD level: 24.8 ht 167 cm wt 62 kg Assessment/Plan: HD scheduled for today .As per vancomycin dosing protocol for dialysis patient. No vancomycin dose shall be given today post HD since pre-HD level is above 20 mcg/ml. Plan to order vancomycin random level before next HD (not yet ordered). Will continue to dose per pre-HD vancomycin level. Will follow.
[2018-08-25 11:30] VITALS: BP 174/103
[2018-08-25] MEDS: CLONIDINE HCL 0.2 MG TABLET PO PRN ×2 (11:41→15:04)
--- NOTE | 2018-08-25 12:50 | NUR ---
Seen by Dr. Israel
--- NOTE | 2018-08-25 15:04 | NUR ---
Educated patient about increased blood pressure and benefits of medication. Patient refused PRN medication for htn x2.
--- NOTE | 2018-08-25 15:10 | NUR ---
manufacturing process technician here. Scheduled dialysis in progress.
[2018-08-25 15:13] VITALS: BP 165/93
--- NOTE | 2018-08-25 17:45 | NUR ---
Dialysis complete. 2300 removed.
--- NOTE | 2018-08-25 19:00 | NUR ---
Patient resting in bed at this time. Complains of abdominal pain and left shoulder pain. PRN [place] administered. Will endorse care to incoming shift accordingly.
[2018-08-25 20:00] VITALS: BP 152/91
--- NOTE | 2018-08-25 20:00 | NUR ---
Received patient laying comfortably in bed. No acute distress noted. Patient is on 02 6L facemask. Patient denies pain and SOB. IV on the right upper arm, patent and intact. AV shunt on the left FA, bruit and thrill present. Safety initiated. Call light within reach. Bed in low and locked position. Patient is on droplet isolation precaution. Will closely monitor.
--- NOTE | 2018-08-25 23:57 | NUR ---
Endorsed patient to RN Earl in stable condition.
[2018-08-26] VITALS: BP 156/94
[2018-08-26] MEDS: HYDROMORPHONE 1 MG/1 ML DISP.SYRIN IV PRN ×4 (03:41→21:47)
[2018-08-26 04:00] VITALS: BP 155/73
[2018-08-26] MEDS: NITROGLYCERIN OINT 1 GM PACKET TP SCH ×4 (06:00→18:00)
[2018-08-26] MEDS: LABETALOL HCL 200 MG TABLET PO SCH ×4 (06:20→23:16)
--- NOTE | 2018-08-26 06:44 | NUR ---
Patient did not sleep at night, was watching TV, had some hemoptysis. Dyspnea without O2 noted. Fell asleep at 0500. No acute distress noted, comfort and safety provided. Patient refused his Nitrobid cream twice.
--- NOTE | 2018-08-26 07:45 | NUR ---
Patient resting comfortably in bed at this time. No signs of distress. FEMA filter removed, per MD order. Patient continues to be on contact isolation for MRSA nares. O2 6L mask on saturating WNL. Complaining of left shoulder pain, pain management will be provided. Call light within reach of patient. Will continue to monitor closely throughout shift.
[2018-08-26] MEDS: SEVELAMER CARBONATE 800 MG TABLET PO SCH ×4 (08:22→18:00)
[2018-08-26] MEDS: PANTOPRAZOLE SODIUM 40 MG TABLET.DR PO SCH (08:22)
[2018-08-26] MEDS: CYCLOBENZAPRINE HCL 10 MG TABLET PO SCH ×2 (08:23→18:22)
[2018-08-26] MEDS: FOLIC ACID/VITAMIN B COMP W-C TABLET PO SCH (08:23)
[2018-08-26] MEDS: PAROXETINE HCL 10 MG TABLET PO SCH (08:23)
[2018-08-26] MEDS: METOCLOPRAMIDE HCL 5 MG TABLET PO SCH ×4 (08:24→18:22)
[2018-08-26] MEDS: BENAZEPRIL HCL 20 MG TABLET PO SCH (08:28)
[2018-08-26] MEDS: AMLODIPINE 5 MG TABLET PO SCH ×2 (08:29→20:25)
[2018-08-26] MEDS: MUPIROCIN 2% OINT 22 GM TUBE NS SCH ×2 (08:30→20:25)
[2018-08-26] MEDS ORDERED: LEVOFLOXACIN 750MG/D5W 750 MG in PREMIXED 1 EACH IV SCH (09:00)
[2018-08-26 11:00] VITALS: BP 164/92
[2018-08-26] MEDS: PHYTONADIONE 10 MG/1 ML AMPUL SQ SCH (12:51)
--- NOTE | 2018-08-26 13:03 | NUR ---
Clinical Pharmacy Note: Vancomycin Dosing per Pharmacy Subjective: Vancomycin IV to continue on this 48 yo male patient on HD for sepsis (per ID note, Clinical sepsis, GPC bacteremia, Acute respiratory failure, +/-PNA) Objective: BUN 61/Scr 9.1(626) WBC 5.5(08/25) Temperature 98.3 Pre-HD level: 24.8 on 08/25 ht 167 cm wt 62 kg Assessment/Plan: HD not scheduled for today .As per vancomycin dosing protocol for dialysis patient, no vancomycin dose shall be given today. Plan to order vancomycin random level before next HD (not yet ordered). Will continue to dose per pre-HD vancomycin level. Will follow.
[2018-08-26 15:53] VITALS: BP 170/99
[2018-08-26] MEDS ORDERED: LEVOFLOXACIN 500 MG/D5W 500 MG in PREMIXED 1 EACH IV SCH ×2 (18:00→20:00)
--- NOTE | 2018-08-26 18:19 | NUR ---
Patient continues to be on 6L mask saturating WNL. Patient desaturates very quickly, lowest 86% without mask. Currently in stable condition. no signs of distress. Contact isolation implemented for MRSA nares. Pain management provided. Patient has been non-compliant with medication regime throughout shift, refusing certain medications even as risks and benefits were educated to patient. Safety measures implemented, call light within reach of patient. Will continue to monitor closely until end of shift.
--- NOTE | 2018-08-26 19:35 | NUR ---
Received patient asleep on high back rest, with oxygen support at 8lpm via face mask, tolerated. Patient has a midline on his right upper arm, patent and intact. Patient arousable, alert and oriented x 4. Bed in low position, locked, side rails up for safety. Noise and lights subdued. Will continue to monitor.
[2018-08-26 20:22] VITALS: BP 168/93
[2018-08-26] MEDS: ONDANSETRON 4 MG/2 ML VIAL IV PRN (23:08)
[2018-08-26 23:18] VITALS: BP 180/101
[2018-08-27] MEDS: HYDROMORPHONE 1 MG/1 ML DISP.SYRIN IV PRN ×4 (03:53→22:01)
--- NOTE | 2018-08-27 05:46 | NUR ---
Patient slept intermittently throughout the night. No untoward events noted. Attended all needs. Ensured safety and comfort.
[2018-08-27] MEDS: LABETALOL HCL 200 MG TABLET PO SCH ×3 (06:00→21:28)
[2018-08-27] MEDS: NITROGLYCERIN OINT 1 GM PACKET TP SCH ×4 (06:00→18:00)
[2018-08-27] MEDS: HYDROCODONE/APAP 5-325MG TABLET PO PRN (06:30)
[2018-08-27 06:53] LABS: POTASSIUM 4.7 mmol/L (3.5-5.1)
[2018-08-27 06:57] LABS: CREATININE 9.7 mg/dL (0.6-1.3)
[2018-08-27 07:38] LABS: BASOPHILS % (AUTO) 0.4 % (0.0-2.0); EOSINOPHILS # (AUTO) 0.3 K/uL (0.0-0.7); EOSINOPHILS % (AUTO) 6.3 % (0.0-7.0); LYMPHOCYTES % (AUTO) 22.6 % (20.5-51.5); MEAN CORPUSCULAR HEMOGLOBIN 29.1 uug (23.8-33.4); MEAN CORPUSCULAR HGB CONC 33 g/dL (32.5-36.3); MEAN CORPUSCULAR VOLUME 87.9 fL (73.0-96.2); MONOCYTES # (AUTO) 0.4 K/uL (2.0-10.0); MONOCYTES % (AUTO) 10.4 % (0.0-11.0); NEUTROPHILS # (AUTO) 2.6 K/uL (1.8-8.9); NEUTROPHILS % (AUTO) 60.3 % (38.5-71.5); PLATELET COUNT (AUTO) 149 K/uL (152-348); RED BLOOD CELL COUNT(AUTO) 2.82 MIL/uL (4.06-5.63); WHITE BLOOD COUNT (AUTO) 4.2 K/uL (3.6-10.2)
[2018-08-27 07:41] LABS: HEMATOCRIT 24.8 % (36.7-47.1); HEMOGLOBIN 8.2 g/dL (12.5-16.3)
[2018-08-27] MEDS: MUPIROCIN 2% OINT 22 GM TUBE NS SCH ×2 (09:00→20:52)
[2018-08-27] MEDS: SEVELAMER CARBONATE 800 MG TABLET PO SCH ×3 (09:29→18:00)
[2018-08-27] MEDS: METOCLOPRAMIDE HCL 5 MG TABLET PO SCH ×3 (09:29→16:07)
[2018-08-27] MEDS: FOLIC ACID/VITAMIN B COMP W-C TABLET PO SCH (09:29)
[2018-08-27] MEDS: CYCLOBENZAPRINE HCL 10 MG TABLET PO SCH ×2 (09:30→16:07)
[2018-08-27] MEDS: PANTOPRAZOLE SODIUM 40 MG TABLET.DR PO SCH (09:30)
[2018-08-27] MEDS: PAROXETINE HCL 10 MG TABLET PO SCH (09:31)
[2018-08-27] MEDS: PHYTONADIONE 10 MG/1 ML AMPUL SQ SCH (09:32)
[2018-08-27] MEDS: BENAZEPRIL HCL 20 MG TABLET PO SCH (09:36)
[2018-08-27] MEDS: AMLODIPINE 5 MG TABLET PO SCH ×2 (09:36→20:48)
[2018-08-27 11:14] VITALS: BP 165/90
--- NOTE | 2018-08-27 14:51 | NUR ---
Clinical Pharmacy Note: Vancomycin Dosing per Pharmacy Subjective: Vancomycin IV to continue on this 48 yo male patient on HD for sepsis (per ID note, Clinical sepsis, GPC bacteremia, Acute respiratory failure, +/-PNA) Objective: BUN 65/Scr 9.7 WBC 4.2 Temperature 97.9 Pre-HD level: 24.8 on 08/25 ht 167 cm wt 62 kg Assessment/Plan: HD scheduled for today .As per vancomycin dosing protocol for dialysis patient, will check vancomycin pre-HD level today for further dosing( ordered on am labs). Will follow the level and administer dose post HD if level is under 20. Addendum: 08/27/18 at 1656 by GILBERT MAE ADM VANCOMYCIN PRE-HD LEVEL ON AM LABS: 16.8 WILL ADMINISTER [id number] POST HD TODAY.
[2018-08-27 15:46] VITALS: BP 153/85
--- NOTE | 2018-08-27 19:20 | NUR ---
Received awake on high back rest, with oxygen support at 4lpm via face mask, tolerated. Patient has a midline on his right upper arm, patent and intact. Patient arousable, alert and oriented x 4. Bed in low position, locked, side rails up for safety. Noted patient for discharge today, will process paperwork and arrange transportation in coordination with major case detective.
[2018-08-27] MEDS ORDERED: VANCOMYCIN IV 500 MG in IV DEXTROSE 5% 100 ML IV ONE (19:30)
[2018-08-27 20:00] VITALS: BP 165/99
[2018-08-27 21:28] VITALS: BP 165/99
--- NOTE | 2018-08-27 22:00 | NUR ---
Patient discharged by ambulance via gurney, with continuous oxygen at 3lpm via face mask and with the right upper arm midline, intact. Report was given to Iveth, nurses from [facility] the residential where the patient is going to be transferred.
== END 2018-08-27 19:50 | DRG 194 ==
LOC: ER 08:41 → TELE3 13:45
PROVIDERS: ADMIT Internal Medicine; ATTEND Internal Medicine
PROC: 05HY33Z Insertion of Infusion Device into Upper Vein, Percutaneous Approach (ICD-10-PCS; principal; 2018-08-20)
PROC: 30233N1 Transfusion of Nonautologous Red Blood Cells into Peripheral Vein, Percutaneous Approach (ICD-10-PCS; 2018-08-23)
PROC: 05HY33Z Insertion of Infusion Device into Upper Vein, Percutaneous Approach (ICD-10-PCS; 2018-08-24)
DX: I13.2 Hypertensive heart and chronic kidney disease with heart failure and with stage 5 chronic kidney disease, or end stage renal disease (principal); J96.01 Acute respiratory failure with hypoxia; J15.9 Unspecified bacterial pneumonia; C90.00 Multiple myeloma not having achieved remission; C79.52 Secondary malignant neoplasm of bone marrow; N18.6 End stage renal disease; K86.2 Cyst of pancreas; N25.81 Secondary hyperparathyroidism of renal origin; I50.33 Acute on chronic diastolic (congestive) heart failure; Z99.2 Dependence on renal dialysis; Z22.322 Carrier or suspected carrier of Methicillin resistant Staphylococcus aureus; D63.1 Anemia in chronic kidney disease; D63.0 Anemia in neoplastic disease; K21.9 Gastro-esophageal reflux disease without esophagitis; G89.4 Chronic pain syndrome; R04.2 Hemoptysis; M84.522 Pathological fracture in neoplastic disease, left humerus; R04.0 Epistaxis; Z91.19 Patient's noncompliance with other medical treatment and regimen; Z79.899 Other long term (current) drug therapy
CPT/HCPCS: 36415; 70030-TC; 71045; 71275; 73030; 83735; 84100; 85025; 85730; 86706; 86850; 86900; 86901; 86920; 87040; 87070; 87340; 90937; 93005; 97116; 97530; A4663; A9150; G0378; J1170; J1956; J2405; J2543; J3370; J3430; J7050; J7060; J8597; P9016-BL; P9021; Q0163; Q9967

== ENCOUNTER 2018-08-29 01:18 | Inpatient (IN) | payer OTHER ==
[~2018-08-29] VITALS: Ht 170.2 cm; Wt 63.0 kg
[2018-08-29] VITALS (7 sets, daily range): BP systolic 150–173; BP diastolic 68–98
[~2018-08-29 01:18] MED LIST changes: -TRAM50TA2 PO
[2018-08-29] MEDS ORDERED: ONDANSETRON 4 MG/2 ML VIAL IV ONE (03:45)
[2018-08-29] MEDS ORDERED: MORPHINE SULFATE 4 MG/1 ML DISP.SYRIN IV ONE ×2 (03:45→08:15)
[2018-08-29] MEDS ORDERED: MORPHINE SULFATE 4 MG/1 ML DISP.SYRIN ONE ×2 (03:54→08:14)
[2018-08-29] MEDS ORDERED: ONDANSETRON 4 MG/2 ML VIAL ONE ×2 (03:55→08:14)
[2018-08-29 03:56] LABS: BASOPHILS % (AUTO) 0.5 % (0.0-2.0); EOSINOPHILS # (AUTO) 0.3 K/uL (0.0-0.7); LYMPHOCYTES # (AUTO) 1.3 K/uL (20.0-40.0); LYMPHOCYTES % (AUTO) 23.4 % (20.5-51.5); MEAN CORPUSCULAR HEMOGLOBIN 29.2 uug (23.8-33.4); MEAN CORPUSCULAR HGB CONC 33 g/dL (32.5-36.3); MEAN CORPUSCULAR VOLUME 87.9 fL (73.0-96.2); MONOCYTES # (AUTO) 0.5 K/uL (2.0-10.0); MONOCYTES % (AUTO) 9.7 % (0.0-11.0); NEUTROPHILS # (AUTO) 3.4 K/uL (1.8-8.9); NEUTROPHILS % (AUTO) 61.4 % (38.5-71.5); PLATELET COUNT (AUTO) 189 K/uL (152-348); WHITE BLOOD COUNT (AUTO) 5.6 K/uL (3.6-10.2)
[2018-08-29 04:04] LABS: HEMATOCRIT 20.7 % (36.7-47.1); POTASSIUM 4.5 mmol/L (3.5-5.1); RED BLOOD CELL COUNT(AUTO) 2.36 MIL/uL (4.06-5.63)
[2018-08-29 04:07] LABS: HEMOGLOBIN 6.9 g/dL (12.5-16.3)
[2018-08-29 04:10] LABS: BILIRUBIN,DIRECT 0.3 mg/dL (0.0-0.2); BILIRUBIN,TOTAL 1.5 mg/dL (0.2-1.0); CREATININE 10.2 mg/dL (0.6-1.3); TOTAL PROTEIN, SERUM 10.7 g/dL (6.4-8.2)
[2018-08-29 04:28] LABS: EOSINOPHILS % (MANUAL) 7 % (0-8); LYMPHOCYTES % (MANUAL) 25 % (20-40); MONOCYTES % (MANUAL) 7 % (2-10); NEUTROPHILS % (MANUAL) 61 % (42-75)
[2018-08-29] MEDS ORDERED: ONDANSETRON IV *ER 4 MG/2 ML VIAL IV ONE (08:15)
[2018-08-29] MEDS ORDERED: POLYVINYL ALCOHOL OPHT DROPS 15 ML BOTTLE EACHEYE PRN (09:45)
[2018-08-29] MEDS ORDERED: ACETAMINOPHEN 325 MG TABLET PO PRN (09:45)
[2018-08-29] MEDS ORDERED: MELATONIN 3 MG TABLET PO PRN (09:45)
[2018-08-29] MEDS ORDERED: HOME MED MISCELLANEOUS XX SCH (09:45)
[2018-08-29] MEDS ORDERED: CLONIDINE HCL 0.2 MG TABLET PO PRN (09:45)
[2018-08-29] MEDS ORDERED: GUAIFENESIN/DEXTROMETHORPHAN 5 ML UDC PO PRN (09:45)
[2018-08-29] MEDS: AMLODIPINE 5 MG TABLET PO SCH ×2 (09:45→21:00)
[2018-08-29] MEDS: BENAZEPRIL HCL 20 MG TABLET PO SCH (09:45)
[2018-08-29] MEDS ORDERED: diphenhydrAMINE 25 MG CAP PO PRN (09:45)
[2018-08-29] MEDS ORDERED: IPRATROPIUM BROMIDE 0.5 MG/2.5 ML NEBU NEB PRN (10:15)
[2018-08-29] MEDS ORDERED: ALBUTEROL SULFATE 2.5 MG/ 0.5 ML NEBU NEB PRN (10:15)
[2018-08-29] MEDS: METOCLOPRAMIDE HCL 5 MG TABLET PO SCH ×2 (11:07→16:03)
[2018-08-29] MEDS: SEVELAMER CARBONATE 800 MG TABLET PO SCH ×2 (12:16→17:20)
[2018-08-29] MEDS: LABETALOL HCL 200 MG TABLET PO SCH ×3 (14:00→22:00)
[2018-08-29] MEDS: CYCLOBENZAPRINE HCL 10 MG TABLET PO SCH (16:03)
[2018-08-29] MEDS ORDERED: VANCOMYCIN IV 1 G in PREMIXED 0 EACH IV ONE (17:30)
[2018-08-30] VITALS: BP 157/92
[2018-08-30] MEDS: HYDROMORPHONE 1 MG/1 ML DISP.SYRIN IV PRN ×5 (03:37→22:24)
[2018-08-30 04:50] VITALS: BP 168/98
[2018-08-30] MEDS: PANTOPRAZOLE SODIUM 40 MG TABLET.DR PO SCH (06:47)
[2018-08-30] MEDS: METOCLOPRAMIDE HCL 5 MG TABLET PO SCH ×3 (06:47→16:21)
[2018-08-30] MEDS: LABETALOL HCL 200 MG TABLET PO SCH ×3 (06:49→22:23)
[2018-08-30 07:23] LABS: MAGNESIUM 2.2 mg/dL (1.8-2.4); POTASSIUM 4.8 mmol/L (3.5-5.1)
[2018-08-30 07:40] LABS: BASOPHILS % (AUTO) 0.3 % (0.0-2.0); EOSINOPHILS # (AUTO) 0.2 K/uL (0.0-0.7); EOSINOPHILS % (AUTO) 4.7 % (0.0-7.0); LYMPHOCYTES # (AUTO) 1.2 K/uL (20.0-40.0); LYMPHOCYTES % (AUTO) 25.1 % (20.5-51.5); MEAN CORPUSCULAR HEMOGLOBIN 29.4 uug (23.8-33.4); MEAN CORPUSCULAR HGB CONC 34 g/dL (32.5-36.3); MEAN CORPUSCULAR VOLUME 86.8 fL (73.0-96.2); MONOCYTES # (AUTO) 0.6 K/uL (2.0-10.0); MONOCYTES % (AUTO) 12.8 % (0.0-11.0); NEUTROPHILS # (AUTO) 2.8 K/uL (1.8-8.9); NEUTROPHILS % (AUTO) 57.1 % (38.5-71.5); PLATELET COUNT (AUTO) 209 K/uL (152-348); RED BLOOD CELL COUNT(AUTO) 2.63 MIL/uL (4.06-5.63); WHITE BLOOD COUNT (AUTO) 4.8 K/uL (3.6-10.2)
[2018-08-30 07:49] LABS: HEMOGLOBIN 7.7 g/dL (12.5-16.3)
[2018-08-30 07:50] LABS: HEMATOCRIT 22.8 % (36.7-47.1)
[2018-08-30 08:12] LABS: CREATININE 8.4 mg/dL (0.6-1.3)
[2018-08-30] MEDS: BENAZEPRIL HCL 20 MG TABLET PO SCH (08:15)
[2018-08-30] MEDS: SEVELAMER CARBONATE 800 MG TABLET PO SCH ×3 (08:15→17:01)
[2018-08-30] MEDS: PAROXETINE HCL 10 MG TABLET PO SCH (08:16)
[2018-08-30] MEDS: CYCLOBENZAPRINE HCL 10 MG TABLET PO SCH ×2 (08:16→16:22)
[2018-08-30] MEDS: FOLIC ACID/VITAMIN B COMP W-C TABLET PO SCH (08:16)
[2018-08-30] MEDS: AMLODIPINE 5 MG TABLET PO SCH ×2 (08:16→20:32)
[2018-08-30 11:58] VITALS: BP 144/86
[2018-08-30 16:14] VITALS: BP 157/94
[2018-08-30] MEDS: AMMONIUM LACTATE 12% LOTION 225 GM BOTTLE TP SCH (17:04)
[2018-08-30 20:00] VITALS: BP 159/86
[2018-08-31] VITALS: BP 145/87
[2018-08-31] MEDS: HYDROMORPHONE 1 MG/1 ML DISP.SYRIN IV PRN ×4 (03:43→19:49)
[2018-08-31 05:00] VITALS: BP 163/90
[2018-08-31] MEDS: LABETALOL HCL 200 MG TABLET PO SCH ×3 (05:06→21:44)
[2018-08-31 06:30] VITALS: BP 145/85
[2018-08-31] MEDS: METOCLOPRAMIDE HCL 5 MG TABLET PO SCH ×4 (06:35→16:30)
[2018-08-31] MEDS: PANTOPRAZOLE SODIUM 40 MG TABLET.DR PO SCH (06:35)
[2018-08-31] MEDS: SEVELAMER CARBONATE 800 MG TABLET PO SCH ×3 (08:24→17:20)
[2018-08-31] MEDS: FOLIC ACID/VITAMIN B COMP W-C TABLET PO SCH (08:24)
[2018-08-31] MEDS: PAROXETINE HCL 10 MG TABLET PO SCH (08:25)
[2018-08-31] MEDS: AMLODIPINE 5 MG TABLET PO SCH ×2 (08:25→20:10)
[2018-08-31] MEDS: BENAZEPRIL HCL 20 MG TABLET PO SCH (08:25)
[2018-08-31] MEDS: CYCLOBENZAPRINE HCL 10 MG TABLET PO SCH ×2 (08:26→16:46)
[2018-08-31] MEDS: AMMONIUM LACTATE 12% LOTION 225 GM BOTTLE TP SCH ×2 (08:27→16:46)
[2018-08-31 11:19] VITALS: BP 148/82
[2018-08-31 15:48] VITALS: BP 154/91
[2018-08-31 20:11] VITALS: BP 145/80
[2018-09-01] MEDS: HYDROMORPHONE 1 MG/1 ML DISP.SYRIN IV PRN ×6 (00:07→21:34)
[2018-09-01 04:00] VITALS: BP 154/90
[2018-09-01] MEDS: LABETALOL HCL 200 MG TABLET PO SCH ×3 (05:06→21:33)
[2018-09-01] MEDS: METOCLOPRAMIDE HCL 5 MG TABLET PO SCH ×3 (06:32→16:23)
[2018-09-01] MEDS: PANTOPRAZOLE SODIUM 40 MG TABLET.DR PO SCH (06:32)
[2018-09-01 08:40] VITALS: BP 155/90
[2018-09-01] MEDS: AMLODIPINE 5 MG TABLET PO SCH ×2 (08:41→20:24)
[2018-09-01] MEDS: PAROXETINE HCL 10 MG TABLET PO SCH (08:42)
[2018-09-01] MEDS: FOLIC ACID/VITAMIN B COMP W-C TABLET PO SCH (08:42)
[2018-09-01] MEDS: SEVELAMER CARBONATE 800 MG TABLET PO SCH ×3 (08:42→17:22)
[2018-09-01] MEDS: BENAZEPRIL HCL 20 MG TABLET PO SCH (08:42)
[2018-09-01] MEDS: CYCLOBENZAPRINE HCL 10 MG TABLET PO SCH ×2 (08:45→16:24)
[2018-09-01 12:02] VITALS: BP 134/80
[2018-09-01 15:07] VITALS: BP 137/80
[2018-09-01] MEDS: AMMONIUM LACTATE 12% LOTION 225 GM BOTTLE TP SCH ×2 (16:23→16:29)
[2018-09-01 20:00] VITALS: BP 146/93
[2018-09-02] VITALS: BP 140/79
[2018-09-02] MEDS: HYDROMORPHONE 1 MG/1 ML DISP.SYRIN IV PRN ×4 (03:10→20:14)
[2018-09-02 04:00] VITALS: BP 141/75
[2018-09-02] MEDS: LABETALOL HCL 200 MG TABLET PO SCH ×3 (06:00→21:32)
[2018-09-02] MEDS: METOCLOPRAMIDE HCL 5 MG TABLET PO SCH ×3 (06:31→17:29)
[2018-09-02] MEDS: PANTOPRAZOLE SODIUM 40 MG TABLET.DR PO SCH (06:31)
[2018-09-02] MEDS: PAROXETINE HCL 10 MG TABLET PO SCH (08:05)
[2018-09-02] MEDS: SEVELAMER CARBONATE 800 MG TABLET PO SCH ×3 (08:05→17:29)
[2018-09-02] MEDS: CYCLOBENZAPRINE HCL 10 MG TABLET PO SCH ×2 (08:05→17:30)
[2018-09-02] MEDS: FOLIC ACID/VITAMIN B COMP W-C TABLET PO SCH (08:05)
[2018-09-02] MEDS: BENAZEPRIL HCL 20 MG TABLET PO SCH (08:06)
[2018-09-02] MEDS: AMMONIUM LACTATE 12% LOTION 225 GM BOTTLE TP SCH ×2 (08:07→17:00)
[2018-09-02] MEDS: AMLODIPINE 5 MG TABLET PO SCH ×2 (08:07→20:15)
[2018-09-02 11:11] VITALS: BP 161/93
[2018-09-02 15:06] VITALS: BP 149/85
[2018-09-02 20:00] VITALS: BP 140/81
[2018-09-03] MEDS: HYDROMORPHONE 1 MG/1 ML DISP.SYRIN IV PRN ×6 (00:16→20:54)
[2018-09-03 04:28] VITALS: BP 153/88
[2018-09-03] MEDS: METOCLOPRAMIDE HCL 5 MG TABLET PO SCH ×3 (06:31→16:34)
[2018-09-03] MEDS: PANTOPRAZOLE SODIUM 40 MG TABLET.DR PO SCH (06:31)
[2018-09-03] MEDS: LABETALOL HCL 200 MG TABLET PO SCH ×3 (06:32→22:00)
[2018-09-03] MEDS: SEVELAMER CARBONATE 800 MG TABLET PO SCH ×3 (08:36→17:34)
[2018-09-03] MEDS: CYCLOBENZAPRINE HCL 10 MG TABLET PO SCH ×2 (08:37→16:34)
[2018-09-03] MEDS: BENAZEPRIL HCL 20 MG TABLET PO SCH (08:37)
[2018-09-03] MEDS: PAROXETINE HCL 10 MG TABLET PO SCH (08:38)
[2018-09-03] MEDS: AMLODIPINE 5 MG TABLET PO SCH ×2 (08:38→20:55)
[2018-09-03] MEDS: AMMONIUM LACTATE 12% LOTION 225 GM BOTTLE TP SCH ×2 (08:46→16:35)
[2018-09-03] MEDS: FOLIC ACID/VITAMIN B COMP W-C TABLET PO SCH (08:46)
[2018-09-03 11:45] VITALS: BP 136/77
[2018-09-03 16:09] VITALS: BP 152/87
[2018-09-03 20:44] VITALS: BP 160/92
[2018-09-04] MEDS: HYDROMORPHONE 1 MG/1 ML DISP.SYRIN IV PRN ×5 (01:18→21:21)
[2018-09-04 05:16] VITALS: BP 157/92
[2018-09-04 06:23] LABS: BASOPHILS % (AUTO) 0.2 % (0.0-2.0); EOSINOPHILS # (AUTO) 0.4 K/uL (0.0-0.7); EOSINOPHILS % (AUTO) 5.8 % (0.0-7.0); HEMATOCRIT 22.8 % (36.7-47.1); HEMOGLOBIN 7.7 g/dL (12.5-16.3); LYMPHOCYTES # (AUTO) 1.2 K/uL (20.0-40.0); LYMPHOCYTES % (AUTO) 19.2 % (20.5-51.5); MEAN CORPUSCULAR HEMOGLOBIN 29.8 uug (23.8-33.4); MEAN CORPUSCULAR HGB CONC 34 g/dL (32.5-36.3); MEAN CORPUSCULAR VOLUME 88.3 fL (73.0-96.2); MONOCYTES # (AUTO) 0.6 K/uL (2.0-10.0); MONOCYTES % (AUTO) 9.4 % (0.0-11.0); NEUTROPHILS # (AUTO) 4.1 K/uL (1.8-8.9); NEUTROPHILS % (AUTO) 65.4 % (38.5-71.5); PLATELET COUNT (AUTO) 255 K/uL (152-348); RED BLOOD CELL COUNT(AUTO) 2.58 MIL/uL (4.06-5.63); WHITE BLOOD COUNT (AUTO) 6.3 K/uL (3.6-10.2)
[2018-09-04 06:34] LABS: MAGNESIUM 2.6 mg/dL (1.8-2.4); PHOSPHOROUS 4.9 mg/dL (2.5-4.9); POTASSIUM 5.6 mmol/L (3.5-5.1)
[2018-09-04] MEDS: METOCLOPRAMIDE HCL 5 MG TABLET PO SCH ×3 (06:34→15:34)
[2018-09-04] MEDS: PANTOPRAZOLE SODIUM 40 MG TABLET.DR PO SCH (06:35)
[2018-09-04] MEDS: LABETALOL HCL 200 MG TABLET PO SCH ×3 (06:35→21:19)
[2018-09-04 06:37] LABS: CREATININE 11.6 mg/dL (0.6-1.3)
[2018-09-04] MEDS: PAROXETINE HCL 10 MG TABLET PO SCH (09:29)
[2018-09-04] MEDS: SEVELAMER CARBONATE 800 MG TABLET PO SCH ×3 (09:30→18:00)
[2018-09-04] MEDS: FOLIC ACID/VITAMIN B COMP W-C TABLET PO SCH (09:30)
[2018-09-04] MEDS: BENAZEPRIL HCL 20 MG TABLET PO SCH (09:30)
[2018-09-04] MEDS: CYCLOBENZAPRINE HCL 10 MG TABLET PO SCH ×2 (09:31→17:00)
[2018-09-04] MEDS: AMLODIPINE 5 MG TABLET PO SCH ×2 (09:31→21:20)
[2018-09-04] MEDS: AMMONIUM LACTATE 12% LOTION 225 GM BOTTLE TP SCH ×2 (09:33→17:00)
[2018-09-04 11:20] VITALS: BP 150/88
[2018-09-04 15:45] VITALS: BP 161/95
[2018-09-04 20:04] VITALS: BP 142/85
[2018-09-05] MEDS: HYDROMORPHONE 1 MG/1 ML DISP.SYRIN IV PRN ×5 (02:17→20:15)
[2018-09-05 04:29] VITALS: BP 145/85
[2018-09-05] MEDS: PANTOPRAZOLE SODIUM 40 MG TABLET.DR PO SCH (06:16)
[2018-09-05] MEDS: LABETALOL HCL 200 MG TABLET PO SCH ×4 (06:17→22:00)
[2018-09-05 06:56] LABS: BASOPHILS % (AUTO) 0.2 % (0.0-2.0); EOSINOPHILS # (AUTO) 0.3 K/uL (0.0-0.7); HEMATOCRIT 21.1 % (36.7-47.1); LYMPHOCYTES # (AUTO) 1.2 K/uL (20.0-40.0); MEAN CORPUSCULAR HEMOGLOBIN 29.6 uug (23.8-33.4); MEAN CORPUSCULAR HGB CONC 34 g/dL (32.5-36.3); MEAN CORPUSCULAR VOLUME 87.6 fL (73.0-96.2); MONOCYTES # (AUTO) 0.5 K/uL (2.0-10.0); MONOCYTES % (AUTO) 9.1 % (0.0-11.0); NEUTROPHILS # (AUTO) 3.4 K/uL (1.8-8.9); NEUTROPHILS % (AUTO) 63.7 % (38.5-71.5); PLATELET COUNT (AUTO) 230 K/uL (152-348); WHITE BLOOD COUNT (AUTO) 5.4 K/uL (3.6-10.2)
[2018-09-05 07:03] LABS: HEMOGLOBIN 7.1 g/dL (12.5-16.3); RED BLOOD CELL COUNT(AUTO) 2.41 MIL/uL (4.06-5.63)
[2018-09-05 07:23] LABS: MAGNESIUM 2.3 mg/dL (1.8-2.4); PHOSPHOROUS 4.7 mg/dL (2.5-4.9); POTASSIUM 5.8 mmol/L (3.5-5.1)
[2018-09-05] MEDS: METOCLOPRAMIDE HCL 5 MG TABLET PO SCH ×3 (08:32→16:30)
[2018-09-05] MEDS: SEVELAMER CARBONATE 800 MG TABLET PO SCH ×3 (08:33→17:57)
[2018-09-05] MEDS: FOLIC ACID/VITAMIN B COMP W-C TABLET PO SCH (09:35)
[2018-09-05] MEDS: PAROXETINE HCL 10 MG TABLET PO SCH (09:35)
[2018-09-05] MEDS: BENAZEPRIL HCL 20 MG TABLET PO SCH (09:36)
[2018-09-05] MEDS: AMLODIPINE 5 MG TABLET PO SCH ×2 (09:36→20:14)
[2018-09-05] MEDS: AMMONIUM LACTATE 12% LOTION 225 GM BOTTLE TP SCH ×2 (09:37→17:58)
[2018-09-05] MEDS: CYCLOBENZAPRINE HCL 10 MG TABLET PO SCH ×2 (09:39→17:58)
[2018-09-05 11:37] VITALS: BP 135/82
[2018-09-05 15:47] VITALS: BP 147/87
[2018-09-05 20:02] VITALS: BP 146/83
[2018-09-06] MEDS: HYDROMORPHONE 1 MG/1 ML DISP.SYRIN IV PRN ×6 (00:21→21:39)
[2018-09-06 04:45] VITALS: BP 156/85
[2018-09-06] MEDS: LABETALOL HCL 200 MG TABLET PO SCH ×3 (05:24→22:57)
[2018-09-06] MEDS: PANTOPRAZOLE SODIUM 40 MG TABLET.DR PO SCH (06:58)
[2018-09-06 07:02] LABS: MAGNESIUM 2.5 mg/dL (1.8-2.4); PHOSPHOROUS 4.8 mg/dL (2.5-4.9); POTASSIUM 6.1 mmol/L (3.5-5.1)
[2018-09-06 07:12] LABS: BASOPHILS % (AUTO) 0.2 % (0.0-2.0); EOSINOPHILS # (AUTO) 0.3 K/uL (0.0-0.7); EOSINOPHILS % (AUTO) 5.6 % (0.0-7.0); LYMPHOCYTES # (AUTO) 1.2 K/uL (20.0-40.0); LYMPHOCYTES % (AUTO) 21.2 % (20.5-51.5); MEAN CORPUSCULAR HEMOGLOBIN 29.8 uug (23.8-33.4); MEAN CORPUSCULAR HGB CONC 34 g/dL (32.5-36.3); MEAN CORPUSCULAR VOLUME 87.8 fL (73.0-96.2); MONOCYTES # (AUTO) 0.6 K/uL (2.0-10.0); MONOCYTES % (AUTO) 10.1 % (0.0-11.0); NEUTROPHILS # (AUTO) 3.5 K/uL (1.8-8.9); NEUTROPHILS % (AUTO) 62.9 % (38.5-71.5); PLATELET COUNT (AUTO) 229 K/uL (152-348); WHITE BLOOD COUNT (AUTO) 5.6 K/uL (3.6-10.2)
[2018-09-06 07:15] LABS: RED BLOOD CELL COUNT(AUTO) 2.35 MIL/uL (4.06-5.63)
[2018-09-06 07:23] LABS: HEMATOCRIT 20.6 % (36.7-47.1)
[2018-09-06] MEDS: AMLODIPINE 5 MG TABLET PO SCH ×2 (08:27→21:39)
[2018-09-06] MEDS: BENAZEPRIL HCL 20 MG TABLET PO SCH (08:27)
[2018-09-06 09:00] VITALS: BP 139/74
[2018-09-06] MEDS: FOLIC ACID/VITAMIN B COMP W-C TABLET PO SCH (09:54)
[2018-09-06] MEDS: SEVELAMER CARBONATE 800 MG TABLET PO SCH ×3 (09:54→18:00)
[2018-09-06] MEDS: PAROXETINE HCL 10 MG TABLET PO SCH (09:54)
[2018-09-06] MEDS: CYCLOBENZAPRINE HCL 10 MG TABLET PO SCH ×2 (09:54→17:00)
[2018-09-06] MEDS: METOCLOPRAMIDE HCL 5 MG TABLET PO SCH ×3 (09:54→16:30)
[2018-09-06] MEDS: AMMONIUM LACTATE 12% LOTION 225 GM BOTTLE TP SCH ×2 (09:55→17:00)
[2018-09-06 11:30] VITALS: BP 140/78
[2018-09-06 15:23] VITALS: BP 144/83
[2018-09-06 19:59] VITALS: BP 140/76
[2018-09-07] MEDS: HYDROMORPHONE 1 MG/1 ML DISP.SYRIN IV PRN ×5 (02:18→21:51)
[2018-09-07 04:00] VITALS: BP 150/88
[2018-09-07 06:06] LABS: MAGNESIUM 2.6 mg/dL (1.8-2.4); PHOSPHOROUS 5.1 mg/dL (2.5-4.9); POTASSIUM 5.4 mmol/L (3.5-5.1)
[2018-09-07 06:34] LABS: CREATININE 9.6 mg/dL (0.6-1.3)
[2018-09-07] MEDS: PANTOPRAZOLE SODIUM 40 MG TABLET.DR PO SCH (06:35)
[2018-09-07] MEDS: LABETALOL HCL 200 MG TABLET PO SCH ×3 (06:36→22:43)
[2018-09-07 07:03] LABS: BASOPHILS % (AUTO) 0.2 % (0.0-2.0); EOSINOPHILS # (AUTO) 0.3 K/uL (0.0-0.7); EOSINOPHILS % (AUTO) 5.4 % (0.0-7.0); LYMPHOCYTES % (AUTO) 19.9 % (20.5-51.5); MEAN CORPUSCULAR HEMOGLOBIN 29.4 uug (23.8-33.4); MEAN CORPUSCULAR HGB CONC 33 g/dL (32.5-36.3); MEAN CORPUSCULAR VOLUME 88.6 fL (73.0-96.2); MONOCYTES # (AUTO) 0.5 K/uL (2.0-10.0); NEUTROPHILS # (AUTO) 3.1 K/uL (1.8-8.9); NEUTROPHILS % (AUTO) 63.5 % (38.5-71.5); PLATELET COUNT (AUTO) 219 K/uL (152-348); WHITE BLOOD COUNT (AUTO) 4.9 K/uL (3.6-10.2)
[2018-09-07 07:09] LABS: RED BLOOD CELL COUNT(AUTO) 2.28 MIL/uL (4.06-5.63)
[2018-09-07 07:12] LABS: HEMATOCRIT 20.2 % (36.7-47.1); HEMOGLOBIN 6.7 g/dL (12.5-16.3)
[2018-09-07 07:44] LABS: EOSINOPHILS % (MANUAL) 5 % (0-8); LYMPHOCYTES % (MANUAL) 22 % (20-40); MONOCYTES % (MANUAL) 8 % (2-10); NEUTROPHILS % (MANUAL) 65 % (42-75)
[2018-09-07] MEDS: FOLIC ACID/VITAMIN B COMP W-C TABLET PO SCH (08:25)
[2018-09-07] MEDS: SEVELAMER CARBONATE 800 MG TABLET PO SCH ×3 (08:25→17:55)
[2018-09-07] MEDS: AMLODIPINE 5 MG TABLET PO SCH ×2 (08:26→21:51)
[2018-09-07] MEDS: CYCLOBENZAPRINE HCL 10 MG TABLET PO SCH ×2 (08:26→17:54)
[2018-09-07] MEDS: METOCLOPRAMIDE HCL 5 MG TABLET PO SCH ×3 (08:26→17:54)
[2018-09-07] MEDS: BENAZEPRIL HCL 20 MG TABLET PO SCH (08:26)
[2018-09-07] MEDS: PAROXETINE HCL 10 MG TABLET PO SCH (08:26)
[2018-09-07] MEDS: AMMONIUM LACTATE 12% LOTION 225 GM BOTTLE TP SCH ×2 (08:27→17:54)
[2018-09-07 15:33] VITALS: BP 141/82
[2018-09-07 20:15] VITALS: BP 147/90
[2018-09-08] MEDS: HYDROMORPHONE 1 MG/1 ML DISP.SYRIN IV PRN ×5 (02:10→20:02)
[2018-09-08] MEDS: LABETALOL HCL 200 MG TABLET PO SCH ×3 (05:24→21:43)
[2018-09-08] MEDS: PANTOPRAZOLE SODIUM 40 MG TABLET.DR PO SCH (06:07)
[2018-09-08 06:32] VITALS: BP 142/81
[2018-09-08] MEDS: METOCLOPRAMIDE HCL 5 MG TABLET PO SCH ×3 (07:30→15:34)
[2018-09-08] MEDS: SEVELAMER CARBONATE 800 MG TABLET PO SCH ×3 (09:25→17:37)
[2018-09-08] MEDS: FOLIC ACID/VITAMIN B COMP W-C TABLET PO SCH (09:25)
[2018-09-08] MEDS: BENAZEPRIL HCL 20 MG TABLET PO SCH (09:25)
[2018-09-08] MEDS: CYCLOBENZAPRINE HCL 10 MG TABLET PO SCH ×2 (09:25→16:06)
[2018-09-08] MEDS: AMLODIPINE 5 MG TABLET PO SCH ×2 (09:25→20:35)
[2018-09-08] MEDS: PAROXETINE HCL 10 MG TABLET PO SCH (09:25)
[2018-09-08] MEDS: AMMONIUM LACTATE 12% LOTION 225 GM BOTTLE TP SCH ×2 (09:26→16:06)
[2018-09-08 11:36] VITALS: BP 144/85
[2018-09-08 15:33] VITALS: BP 141/78
[2018-09-08 20:00] VITALS: BP 134/79
[2018-09-09] VITALS (10 sets, daily range): BP systolic 135–152; BP diastolic 69–87
[2018-09-09] MEDS: HYDROMORPHONE 1 MG/1 ML DISP.SYRIN IV PRN ×6 (00:21→21:57)
[2018-09-09] MEDS: LABETALOL HCL 200 MG TABLET PO SCH ×3 (06:31→22:00)
[2018-09-09] MEDS: METOCLOPRAMIDE HCL 5 MG TABLET PO SCH ×3 (06:31→17:06)
[2018-09-09] MEDS: PANTOPRAZOLE SODIUM 40 MG TABLET.DR PO SCH (06:31)
[2018-09-09 06:33] LABS: EOSINOPHILS # (AUTO) 0.3 K/uL (0.0-0.7); LYMPHOCYTES # (AUTO) 1.1 K/uL (20.0-40.0); LYMPHOCYTES % (AUTO) 21.5 % (20.5-51.5); MEAN CORPUSCULAR HEMOGLOBIN 29.5 uug (23.8-33.4); NEUTROPHILS # (AUTO) 3.3 K/uL (1.8-8.9); PLATELET COUNT (AUTO) 214 K/uL (152-348); WHITE BLOOD COUNT (AUTO) 5.3 K/uL (3.6-10.2)
[2018-09-09 06:36] LABS: POTASSIUM 5.6 mmol/L (3.5-5.1)
[2018-09-09 06:37] LABS: BASOPHILS % (AUTO) 0.4 % (0.0-2.0); EOSINOPHILS % (AUTO) 5.7 % (0.0-7.0); MEAN CORPUSCULAR HGB CONC 34 g/dL (32.5-36.3); MEAN CORPUSCULAR VOLUME 87.4 fL (73.0-96.2); MONOCYTES # (AUTO) 0.6 K/uL (2.0-10.0); MONOCYTES % (AUTO) 10.6 % (0.0-11.0); NEUTROPHILS % (AUTO) 61.8 % (38.5-71.5)
[2018-09-09 06:54] LABS: CREATININE 9.1 mg/dL (0.6-1.3)
[2018-09-09 07:34] LABS: RED BLOOD CELL COUNT(AUTO) 2.24 MIL/uL (4.06-5.63)
[2018-09-09 07:38] LABS: HEMATOCRIT 19.6 % (36.7-47.1); HEMOGLOBIN 6.6 g/dL (12.5-16.3)
[2018-09-09 07:58] LABS: LYMPHOCYTES % (MANUAL) 22 % (20-40); MONOCYTES % (MANUAL) 11 % (2-10); NEUTROPHILS % (MANUAL) 63 % (42-75)
[2018-09-09 07:59] LABS: EOSINOPHILS % (MANUAL) 4 % (0-8)
[2018-09-09] MEDS: SEVELAMER CARBONATE 800 MG TABLET PO SCH ×3 (08:16→17:07)
[2018-09-09] MEDS: BENAZEPRIL HCL 20 MG TABLET PO SCH (08:19)
[2018-09-09] MEDS: AMLODIPINE 5 MG TABLET PO SCH ×2 (08:20→20:51)
[2018-09-09] MEDS: FOLIC ACID/VITAMIN B COMP W-C TABLET PO SCH (08:20)
[2018-09-09] MEDS: CYCLOBENZAPRINE HCL 10 MG TABLET PO SCH ×2 (08:21→17:07)
[2018-09-09] MEDS: PAROXETINE HCL 10 MG TABLET PO SCH (08:22)
[2018-09-09] MEDS: AMMONIUM LACTATE 12% LOTION 225 GM BOTTLE TP SCH ×2 (08:22→17:08)
[2018-09-10] VITALS (7 sets, daily range): BP systolic 140–158; BP diastolic 78–87
[2018-09-10] MEDS: HYDROMORPHONE 1 MG/1 ML DISP.SYRIN IV PRN ×6 (02:01→22:00)
[2018-09-10] MEDS: LABETALOL HCL 200 MG TABLET PO SCH ×3 (06:00→21:59)
[2018-09-10] MEDS: PANTOPRAZOLE SODIUM 40 MG TABLET.DR PO SCH (06:00)
[2018-09-10] MEDS: METOCLOPRAMIDE HCL 5 MG TABLET PO SCH ×3 (06:32→17:35)
[2018-09-10] MEDS: FOLIC ACID/VITAMIN B COMP W-C TABLET PO SCH (08:24)
[2018-09-10] MEDS: SEVELAMER CARBONATE 800 MG TABLET PO SCH ×3 (08:25→17:36)
[2018-09-10] MEDS: BENAZEPRIL HCL 20 MG TABLET PO SCH (08:25)
[2018-09-10] MEDS: CYCLOBENZAPRINE HCL 10 MG TABLET PO SCH ×2 (08:26→17:36)
[2018-09-10] MEDS: AMLODIPINE 5 MG TABLET PO SCH ×2 (08:26→21:00)
[2018-09-10] MEDS: PAROXETINE HCL 10 MG TABLET PO SCH (08:27)
[2018-09-10] MEDS: AMMONIUM LACTATE 12% LOTION 225 GM BOTTLE TP SCH ×2 (08:27→17:36)
[2018-09-11] MEDS: HYDROMORPHONE 1 MG/1 ML DISP.SYRIN IV PRN ×6 (02:01→22:50)
[2018-09-11 05:50] VITALS: BP 148/87
[2018-09-11] MEDS: METOCLOPRAMIDE HCL 5 MG TABLET PO SCH ×3 (06:35→17:00)
[2018-09-11] MEDS: PANTOPRAZOLE SODIUM 40 MG TABLET.DR PO SCH (06:35)
[2018-09-11] MEDS: LABETALOL HCL 200 MG TABLET PO SCH ×3 (06:35→22:26)
[2018-09-11 08:07] LABS: BASOPHILS % (AUTO) 0.5 % (0.0-2.0); EOSINOPHILS # (AUTO) 0.4 K/uL (0.0-0.7); EOSINOPHILS % (AUTO) 7.9 % (0.0-7.0); HEMATOCRIT 23.2 % (36.7-47.1); HEMOGLOBIN 7.8 g/dL (12.5-16.3); LYMPHOCYTES % (AUTO) 22.5 % (20.5-51.5); MEAN CORPUSCULAR HEMOGLOBIN 29.3 uug (23.8-33.4); MEAN CORPUSCULAR HGB CONC 34 g/dL (32.5-36.3); MEAN CORPUSCULAR VOLUME 87.1 fL (73.0-96.2); MONOCYTES # (AUTO) 0.4 K/uL (2.0-10.0); MONOCYTES % (AUTO) 9.4 % (0.0-11.0); NEUTROPHILS # (AUTO) 2.7 K/uL (1.8-8.9); NEUTROPHILS % (AUTO) 59.7 % (38.5-71.5); PLATELET COUNT (AUTO) 189 K/uL (152-348); RED BLOOD CELL COUNT(AUTO) 2.66 MIL/uL (4.06-5.63); WHITE BLOOD COUNT (AUTO) 4.5 K/uL (3.6-10.2)
[2018-09-11 08:22] LABS: MAGNESIUM 2.4 mg/dL (1.8-2.4); PHOSPHOROUS 4.6 mg/dL (2.5-4.9); POTASSIUM 5.2 mmol/L (3.5-5.1)
[2018-09-11 08:25] LABS: CREATININE 8.8 mg/dL (0.6-1.3)
[2018-09-11] MEDS: SEVELAMER CARBONATE 800 MG TABLET PO SCH ×3 (08:38→17:00)
[2018-09-11] MEDS: CYCLOBENZAPRINE HCL 10 MG TABLET PO SCH ×2 (08:42→17:00)
[2018-09-11] MEDS: PAROXETINE HCL 10 MG TABLET PO SCH (08:43)
[2018-09-11] MEDS: FOLIC ACID/VITAMIN B COMP W-C TABLET PO SCH (08:43)
[2018-09-11] MEDS: AMLODIPINE 5 MG TABLET PO SCH ×2 (08:49→22:18)
[2018-09-11] MEDS: BENAZEPRIL HCL 20 MG TABLET PO SCH (08:49)
[2018-09-11] MEDS: AMMONIUM LACTATE 12% LOTION 225 GM BOTTLE TP SCH ×2 (09:00→17:00)
[2018-09-11 11:00] VITALS: BP 141/80
[2018-09-11 20:27] VITALS: BP 146/79
[2018-09-12] MEDS: HYDROMORPHONE 1 MG/1 ML DISP.SYRIN IV PRN ×5 (02:44→23:47)
[2018-09-12 04:51] VITALS: BP 140/79
[2018-09-12] MEDS: PANTOPRAZOLE SODIUM 40 MG TABLET.DR PO SCH (06:09)
[2018-09-12] MEDS: LABETALOL HCL 200 MG TABLET PO SCH ×3 (06:09→21:38)
[2018-09-12] MEDS: METOCLOPRAMIDE HCL 5 MG TABLET PO SCH ×3 (06:12→16:30)
[2018-09-12 07:36] LABS: BASOPHILS % (AUTO) 0.2 % (0.0-2.0); EOSINOPHILS # (AUTO) 0.4 K/uL (0.0-0.7); HEMATOCRIT 22.3 % (36.7-47.1); HEMOGLOBIN 7.5 g/dL (12.5-16.3); LYMPHOCYTES # (AUTO) 1.2 K/uL (20.0-40.0); LYMPHOCYTES % (AUTO) 21.8 % (20.5-51.5); MEAN CORPUSCULAR HGB CONC 33 g/dL (32.5-36.3); MEAN CORPUSCULAR VOLUME 86.8 fL (73.0-96.2); MONOCYTES # (AUTO) 0.5 K/uL (2.0-10.0); MONOCYTES % (AUTO) 9.7 % (0.0-11.0); NEUTROPHILS # (AUTO) 3.3 K/uL (1.8-8.9); NEUTROPHILS % (AUTO) 61.3 % (38.5-71.5); PLATELET COUNT (AUTO) 159 K/uL (152-348); RED BLOOD CELL COUNT(AUTO) 2.58 MIL/uL (4.06-5.63); WHITE BLOOD COUNT (AUTO) 5.4 K/uL (3.6-10.2)
[2018-09-12 07:48] LABS: MAGNESIUM 2.4 mg/dL (1.8-2.4); PHOSPHOROUS 4.5 mg/dL (2.5-4.9); POTASSIUM 5.4 mmol/L (3.5-5.1)
[2018-09-12 07:53] LABS: CREATININE 9.1 mg/dL (0.6-1.3)
[2018-09-12] MEDS: SEVELAMER CARBONATE 800 MG TABLET PO SCH ×3 (08:00→18:39)
[2018-09-12] MEDS: CYCLOBENZAPRINE HCL 10 MG TABLET PO SCH ×2 (09:00→18:39)
[2018-09-12] MEDS: BENAZEPRIL HCL 20 MG TABLET PO SCH (10:36)
[2018-09-12] MEDS: PAROXETINE HCL 10 MG TABLET PO SCH (10:36)
[2018-09-12] MEDS: AMLODIPINE 5 MG TABLET PO SCH ×2 (10:37→21:38)
[2018-09-12] MEDS: FOLIC ACID/VITAMIN B COMP W-C TABLET PO SCH (10:39)
[2018-09-12] MEDS: AMMONIUM LACTATE 12% LOTION 225 GM BOTTLE TP SCH ×2 (10:39→18:40)
[2018-09-12 12:00] VITALS: BP 140/79
[2018-09-12 15:42] VITALS: BP 156/91
[2018-09-12 20:00] VITALS: BP 141/83
[2018-09-13] MEDS: HYDROMORPHONE 1 MG/1 ML DISP.SYRIN IV PRN ×5 (03:57→21:30)
[2018-09-13 04:00] VITALS: BP 147/84
[2018-09-13] MEDS: PANTOPRAZOLE SODIUM 40 MG TABLET.DR PO SCH (06:31)
[2018-09-13] MEDS: METOCLOPRAMIDE HCL 5 MG TABLET PO SCH ×3 (06:31→17:34)
[2018-09-13] MEDS: LABETALOL HCL 200 MG TABLET PO SCH ×3 (06:31→21:29)
[2018-09-13] MEDS: FOLIC ACID/VITAMIN B COMP W-C TABLET PO SCH (08:18)
[2018-09-13] MEDS: PAROXETINE HCL 10 MG TABLET PO SCH (08:19)
[2018-09-13] MEDS: SEVELAMER CARBONATE 800 MG TABLET PO SCH ×3 (08:20→17:36)
[2018-09-13] MEDS: CYCLOBENZAPRINE HCL 10 MG TABLET PO SCH ×2 (08:20→17:34)
[2018-09-13] MEDS: AMMONIUM LACTATE 12% LOTION 225 GM BOTTLE TP SCH ×2 (08:20→17:37)
[2018-09-13] MEDS: BENAZEPRIL HCL 20 MG TABLET PO SCH (08:21)
[2018-09-13] MEDS: AMLODIPINE 5 MG TABLET PO SCH ×2 (08:23→20:55)
[2018-09-13 11:26] VITALS: BP 143/86
[2018-09-13 15:25] VITALS: BP 143/83
[2018-09-13 20:00] VITALS: BP 136/78
[2018-09-14] MEDS: HYDROMORPHONE 1 MG/1 ML DISP.SYRIN IV PRN ×6 (02:01→23:32)
[2018-09-14] MEDS: LABETALOL HCL 200 MG TABLET PO SCH ×3 (06:00→21:35)
[2018-09-14] MEDS: PANTOPRAZOLE SODIUM 40 MG TABLET.DR PO SCH (06:00)
[2018-09-14 06:19] VITALS: BP 142/78
[2018-09-14] MEDS: METOCLOPRAMIDE HCL 5 MG TABLET PO SCH ×3 (06:35→17:47)
[2018-09-14] MEDS: SEVELAMER CARBONATE 800 MG TABLET PO SCH ×3 (09:18→17:47)
[2018-09-14] MEDS: FOLIC ACID/VITAMIN B COMP W-C TABLET PO SCH (09:18)
[2018-09-14] MEDS: PAROXETINE HCL 10 MG TABLET PO SCH (09:19)
[2018-09-14] MEDS: AMLODIPINE 5 MG TABLET PO SCH ×2 (09:19→20:38)
[2018-09-14] MEDS: CYCLOBENZAPRINE HCL 10 MG TABLET PO SCH ×2 (09:19→17:47)
[2018-09-14] MEDS: BENAZEPRIL HCL 20 MG TABLET PO SCH (09:19)
[2018-09-14] MEDS: AMMONIUM LACTATE 12% LOTION 225 GM BOTTLE TP SCH ×2 (09:20→17:48)
[2018-09-14 15:24] VITALS: BP 140/81
[2018-09-14 17:28] VITALS: BP 140/81
[2018-09-14 20:26] VITALS: BP 145/88
[2018-09-14 21:36] VITALS: BP 132/70
[2018-09-15 00:25] VITALS: BP 145/88
[2018-09-15] MEDS: HYDROMORPHONE 1 MG/1 ML DISP.SYRIN IV PRN ×5 (03:28→18:31)
[2018-09-15 06:00] VITALS: BP 137/79
[2018-09-15] MEDS: LABETALOL HCL 200 MG TABLET PO SCH ×2 (06:23→12:51)
[2018-09-15] MEDS: PANTOPRAZOLE SODIUM 40 MG TABLET.DR PO SCH (06:24)
[2018-09-15] MEDS: METOCLOPRAMIDE HCL 5 MG TABLET PO SCH ×3 (06:32→16:57)
[2018-09-15] MEDS: SEVELAMER CARBONATE 800 MG TABLET PO SCH ×3 (08:28→16:57)
[2018-09-15] MEDS: FOLIC ACID/VITAMIN B COMP W-C TABLET PO SCH (08:29)
[2018-09-15] MEDS: AMLODIPINE 5 MG TABLET PO SCH (08:29)
[2018-09-15] MEDS: BENAZEPRIL HCL 20 MG TABLET PO SCH (08:29)
[2018-09-15] MEDS: CYCLOBENZAPRINE HCL 10 MG TABLET PO SCH ×2 (08:30→16:57)
[2018-09-15] MEDS: PAROXETINE HCL 10 MG TABLET PO SCH (08:30)
[2018-09-15] MEDS: AMMONIUM LACTATE 12% LOTION 225 GM BOTTLE TP SCH ×2 (09:01→16:57)
[2018-09-15 11:08] VITALS: BP 133/78
[2018-09-15 15:20] VITALS: BP 130/76
== END 2018-09-15 19:53 | DRG 691 ==
LOC: ER 01:18 → TELE3 08:17 → MEDSURG3 09-02 14:35
PROVIDERS: ADMIT Internal Medicine Nephrology; ATTEND Internal Medicine Nephrology
PROC: 5A1D70Z Performance of Urinary Filtration, Intermittent, Less than 6 Hours Per Day (ICD-10-PCS; principal; 2018-08-29)
PROC: 30233N1 Transfusion of Nonautologous Red Blood Cells into Peripheral Vein, Percutaneous Approach (ICD-10-PCS; principal; 2018-08-29)
DX: C90.00 Multiple myeloma not having achieved remission (principal); I13.11 Hypertensive heart and chronic kidney disease without heart failure, with stage 5 chronic kidney disease, or end stage renal disease; C79.51 Secondary malignant neoplasm of bone; R78.81 Bacteremia; N18.6 End stage renal disease; E87.5 Hyperkalemia; D63.0 Anemia in neoplastic disease; D63.1 Anemia in chronic kidney disease; G89.3 Neoplasm related pain (acute) (chronic); Z99.2 Dependence on renal dialysis; Z91.19 Patient's noncompliance with other medical treatment and regimen; M84.522 Pathological fracture in neoplastic disease, left humerus; K86.9 Disease of pancreas, unspecified; K21.9 Gastro-esophageal reflux disease without esophagitis; Z79.899 Other long term (current) drug therapy
CPT/HCPCS: 36415; 70030-TC; 71045; 73060; 73200; 83735; 84100; 85025; 85730; 86850; 86900; 86901; 86920; 90937; 94640; 97110; 97165; 97530; 97535; A4663; G0378; J1170; J2270; J2405; J3370; J7050; J8597; P9016-BL; P9021

== ENCOUNTER 2018-12-29 12:01 | Inpatient (IN) | payer OTHER ==
[~2018-12-29] VITALS: Ht 170.2 cm; Wt 61.8 kg
[~2018-12-29 12:01] MED LIST changes: +POLY15DR31 OP; -POLY15DR57 OP
[2018-12-29] MEDS ORDERED: ONDANSETRON 4 MG/2 ML VIAL ONE (12:35)
[2018-12-29] MEDS ORDERED: HYDROMORPHONE 1 MG/1 ML DISP.SYRIN ONE ×2 (12:35→15:05)
[2018-12-29] MEDS ORDERED: HYDROMORPHONE 1 MG/1 ML DISP.SYRIN IM ONE (12:45)
[2018-12-29] MEDS ORDERED: ONDANSETRON 4 MG/2 ML VIAL IM ONE (12:45)
[2018-12-29] MEDS ORDERED: IBUPROFEN 600 MG TABLET ONE (13:14)
[2018-12-29 13:48] LABS: CARBON DIOXIDE 33 mmol/L (21-32); CHLORIDE 95 mmol/L (98-107); CREATININE 7.3 mg/dL (0.6-1.3); GLUCOSE 79 mg/dL (74-106); POTASSIUM 4.5 mmol/L (3.5-5.1); UREA NITROGEN, BLOOD 29 mg/dL (7-18)
[2018-12-29 13:56] LABS: ALANINE AMINOTRANSFERASE < 6 U/L (16-63); ALKALINE PHOSPHATASE 72 U/L (50-136); ASPARTATE AMINOTRANSFERASE 17 U/L (15-37); BILIRUBIN,DIRECT 0.3 mg/dL (0.0-0.2); BILIRUBIN,TOTAL 1.2 mg/dL (0.2-1.0); TOTAL PROTEIN, SERUM 11.2 g/dL (6.4-8.2)
[2018-12-29] MEDS ORDERED: HYDROMORPHONE 2 MG/1 ML DISP.SYRIN ONE (14:28)
[2018-12-29] MEDS ORDERED: HYDROMORPHONE 1 MG/1 ML DISP.SYRIN IV ONE ×2 (14:30→15:15)
[2018-12-29 14:37] LABS: BASOPHILS # (AUTO) 0.1 K/uL (0.0-8.0); EOSINOPHILS # (AUTO) 0.2 K/uL (0.0-0.7); EOSINOPHILS % (AUTO) 3.8 % (0.0-7.0); LYMPHOCYTES # (AUTO) 1.8 K/uL (20.0-40.0); LYMPHOCYTES % (AUTO) 31.5 % (20.5-51.5); MEAN CORPUSCULAR HEMOGLOBIN 29.7 uug (23.8-33.4); MEAN CORPUSCULAR HGB CONC 33 g/dL (32.5-36.3); MEAN CORPUSCULAR VOLUME 88.9 fL (73.0-96.2); MONOCYTES # (AUTO) 0.8 K/uL (2.0-10.0); MONOCYTES % (AUTO) 13.8 % (0.0-11.0); NEUTROPHILS # (AUTO) 2.9 K/uL (1.8-8.9); NEUTROPHILS % (AUTO) 49.9 % (38.5-71.5); PLATELET COUNT (AUTO) 323 K/uL (152-348); WHITE BLOOD COUNT (AUTO) 5.9 K/uL (3.6-10.2)
[2018-12-29 14:42] LABS: HEMATOCRIT 20.6 % (36.7-47.1); RED BLOOD CELL COUNT(AUTO) 2.32 MIL/uL (4.06-5.63)
[2018-12-29 14:43] LABS: HEMOGLOBIN 6.9 g/dL (12.5-16.3)
[2018-12-29] MEDS ORDERED: HYDR-4384 PO (15:27)
[2018-12-29] MEDS ORDERED: DRON2.5C11 PO (15:27)
[2018-12-29] MEDS ORDERED: ONDA4TAB10 PO (15:27)
[2018-12-29] MEDS ORDERED: ALBU2.5V38 IH (15:27)
[2018-12-29] MEDS ORDERED: HEPA500034 SQ (15:27)
[2018-12-29] MEDS ORDERED: SEVE800T8 PO (15:27)
[2018-12-29] MEDS ORDERED: LABE200T5 PO (15:27)
[2018-12-29] MEDS ORDERED: FAMO-132 PO (15:27)
[2018-12-29] MEDS ORDERED: CLON0.1T PO (15:27)
[2018-12-29] MEDS ORDERED: HYPR15DR4 OP (15:27)
[2018-12-29] MEDS ORDERED: ESCI10TA PO (15:27)
[2018-12-29] MEDS ORDERED: MIRT15TA7 PO (15:27)
[2018-12-29] MEDS ORDERED: NIFE60TA2 PO (15:27)
[2018-12-29] MEDS ORDERED: SENN-18 PO (15:27)
[2018-12-29] MEDS ORDERED: BUDE0.5A4 IH (15:27)
[2018-12-29] MEDS ORDERED: HYDR2TAB4 PO (15:27)
[2018-12-29] MEDS ORDERED: MAGN30OR PO (15:27)
[2018-12-29] MEDS ORDERED: IPRA3AMP23 IH (15:27)
[2018-12-29] MEDS ORDERED: FOLI0.8T23 PO (15:27)
[2018-12-29] MEDS ORDERED: ISOS60TA4 PO (15:27)
[2018-12-29 15:44] LABS: BAND % (MANUAL) 4 % (0-10); EOSINOPHILS % (MANUAL) 5 % (0-8); LYMPHOCYTES % (MANUAL) 29 % (20-40); MONOCYTES % (MANUAL) 15 % (2-10); NEUTROPHILS % (MANUAL) 47 % (42-75)
[2018-12-29 16:06] VITALS: BP 142/46
[2018-12-29] MEDS ORDERED: Z GUARD REMEDY PASTE 57 GM TUBE TOP PRN (16:30)
[2018-12-29] MEDS ORDERED: ACETAMINOPHEN 325 MG TABLET PO PRN (16:45)
[2018-12-29] MEDS ORDERED: MELATONIN 3 MG TABLET PO PRN (16:45)
[2018-12-29] MEDS ORDERED: CLONIDINE HCL 0.1 MG TABLET PO PRN (16:45)
[2018-12-29] MEDS ORDERED: Medication Not On Formulary EA (Magnesium Hydroxide/Al Hydrox (Mag-Al Liquid) 30 ML) PO PRN (16:45)
[2018-12-29] MEDS ORDERED: Medication Not On Formulary EA (Hypromellose (Isopto Tears) 2 DROP) OP PRN (16:45)
[2018-12-29] MEDS ORDERED: POLYVINYL ALCOHOL OPHT DROPS 15 ML BOTTLE EACHEYE PRN (17:15)
[2018-12-29] MEDS ORDERED: MAG HYDROX/AL HYDROX/SIMETH 30 ML LIQUID UDC PO PRN (17:15)
[2018-12-29] MEDS: MIRTAZAPINE 15 MG TABLET PO SCH (17:59)
[2018-12-29] MEDS: HYDROMORPHONE 1 MG/1 ML DISP.SYRIN IV PRN ×2 (17:59→21:51)
[2018-12-29] MEDS: SEVELAMER CARBONATE 800 MG TABLET PO SCH (17:59)
[2018-12-29] MEDS: BUDESONIDE 0.5 MG/2 ML NEBU IH SCH (19:30)
[2018-12-29 20:00] VITALS: BP 132/50
[2018-12-29] MEDS: DOCUSATE SODIUM 100 MG CAPSULE PO SCH (20:58)
[2018-12-29] MEDS: NIFEdipine XL 60 MG TABSR PO SCH (20:59)
[2018-12-29] MEDS: LABETALOL HCL 200 MG TABLET PO SCH (21:00)
[2018-12-29] MEDS: ONDANSETRON 4 MG/2 ML VIAL IV PRN (22:22)
[2018-12-30] VITALS (10 sets, daily range): BP systolic 146–198; BP diastolic 44–83
[2018-12-30] MEDS: HYDROMORPHONE 1 MG/1 ML DISP.SYRIN IV PRN ×2 (01:51→06:06)
[2018-12-30] MEDS: LABETALOL HCL 200 MG TABLET PO SCH ×3 (06:01→21:39)
[2018-12-30 06:30] LABS: BASOPHILS % (AUTO) 0.7 % (0.0-2.0); EOSINOPHILS # (AUTO) 0.2 K/uL (0.0-0.7); EOSINOPHILS % (AUTO) 4.4 % (0.0-7.0); LYMPHOCYTES # (AUTO) 1.7 K/uL (20.0-40.0); LYMPHOCYTES % (AUTO) 34.5 % (20.5-51.5); MEAN CORPUSCULAR HEMOGLOBIN 30.3 uug (23.8-33.4); MEAN CORPUSCULAR HGB CONC 34 g/dL (32.5-36.3); MEAN CORPUSCULAR VOLUME 89.7 fL (73.0-96.2); MONOCYTES # (AUTO) 0.7 K/uL (2.0-10.0); MONOCYTES % (AUTO) 13.5 % (0.0-11.0); NEUTROPHILS # (AUTO) 2.3 K/uL (1.8-8.9); NEUTROPHILS % (AUTO) 46.9 % (38.5-71.5); PLATELET COUNT (AUTO) 308 K/uL (152-348); WHITE BLOOD COUNT (AUTO) 4.9 K/uL (3.6-10.2)
[2018-12-30 06:55] LABS: ALKALINE PHOSPHATASE 69 U/L (50-136); ASPARTATE AMINOTRANSFERASE 16 U/L (15-37); BILIRUBIN,TOTAL 1.1 mg/dL (0.2-1.0); CARBON DIOXIDE 31 mmol/L (21-32); CHLORIDE 94 mmol/L (98-107); CHOLESTEROL 118 mg/dL (<200); GLUCOSE 77 mg/dL (74-106); HDL CHOLESTEROL 39 mg/dL (40-60); PHOSPHOROUS 7.5 mg/dL (2.5-4.9); POTASSIUM 4.8 mmol/L (3.5-5.1); TOTAL PROTEIN, SERUM 10.6 g/dL (6.4-8.2); TRIGLYCERIDES 92 MG/DL (30-150); UREA NITROGEN, BLOOD 40 mg/dL (7-18)
[2018-12-30 07:06] LABS: ALANINE AMINOTRANSFERASE < 6 U/L (16-63); MAGNESIUM 2.3 mg/dL (1.8-2.4)
[2018-12-30 07:10] LABS: HEMATOCRIT 19.4 % (36.7-47.1); RED BLOOD CELL COUNT(AUTO) 2.17 MIL/uL (4.06-5.63)
[2018-12-30 07:12] LABS: CREATININE 9.2 mg/dL (0.6-1.3)
[2018-12-30 07:13] LABS: HEMOGLOBIN 6.6 g/dL (12.5-16.3)
[2018-12-30 07:41] LABS: EOSINOPHILS % (MANUAL) 3 % (0-8); LYMPHOCYTES % (MANUAL) 34 % (20-40); MONOCYTES % (MANUAL) 13 % (2-10); NEUTROPHILS % (MANUAL) 50 % (42-75)
[2018-12-30] MEDS: BUDESONIDE 0.5 MG/2 ML NEBU IH SCH ×2 (07:44→19:08)
[2018-12-30] MEDS: ALBUTEROL SULFATE 2.5 MG/3 ML NEBU IH PRN (07:44)
[2018-12-30] MEDS: SEVELAMER CARBONATE 800 MG TABLET PO SCH ×3 (08:53→18:16)
[2018-12-30] MEDS: HYDROCODONE/APAP 5-325MG TABLET PO PRN (08:54)
[2018-12-30] MEDS: ESCITALOPRAM OXALATE 10 MG TABLET PO SCH (08:54)
[2018-12-30] MEDS: DRONABINOL 2.5 MG CAPSULE PO SCH (08:54)
[2018-12-30] MEDS: ISOSORBIDE MONONITRATE 60 MG TAB.SR.24H PO SCH (08:55)
[2018-12-30] MEDS: MIRTAZAPINE 15 MG TABLET PO SCH ×2 (08:56→17:27)
[2018-12-30] MEDS: FOLIC ACID/VITAMIN B COMP W-C TABLET PO SCH (08:56)
[2018-12-30] MEDS: BENAZEPRIL HCL 20 MG TABLET PO SCH (09:00)
[2018-12-30] MEDS: NIFEdipine XL 60 MG TABSR PO SCH ×2 (09:00→20:01)
[2018-12-30] MEDS: FAMOTIDINE 20 MG TABLET PO SCH (09:05)
[2018-12-30] MEDS ORDERED: HYDROMORPHONE 2 MG/1 ML DISP.SYRIN IV PRN (09:30)
[2018-12-30] MEDS: HYDROMORPHONE 2 MG/1 ML DISP.SYRIN IV PRN ×5 (09:34→23:04)
[2018-12-30] MEDS ORDERED: IPRATROPIUM BROMIDE 0.5 MG/2.5 ML NEBU NEB PRN (14:30)
[2018-12-30] MEDS: DOCUSATE SODIUM 100 MG CAPSULE PO SCH (20:01)
[2018-12-30] MEDS ORDERED: PAMIDRONATE DISODIUM 90 MG in IV NORMAL SALINE 500 ML IV ONE (21:00)
[2018-12-31] VITALS (10 sets, daily range): BP systolic 120–148; BP diastolic 33–61
[2018-12-31] MEDS: HYDROCODONE/APAP 5-325MG TABLET PO PRN ×2 (02:05→11:05)
[2018-12-31] MEDS: HYDROMORPHONE 2 MG/1 ML DISP.SYRIN IV PRN ×4 (03:06→12:58)
[2018-12-31] MEDS: LABETALOL HCL 200 MG TABLET PO SCH ×3 (06:16→23:06)
[2018-12-31 06:35] LABS: CARBON DIOXIDE 34 mmol/L (21-32); CHLORIDE 101 mmol/L (98-107); CREATININE 7.4 mg/dL (0.6-1.3); GLUCOSE 83 mg/dL (74-106); IRON, SERUM 38 ug/dL (50-175); MAGNESIUM 2.3 mg/dL (1.8-2.4); PHOSPHOROUS 5.3 mg/dL (2.5-4.9); POTASSIUM 4.8 mmol/L (3.5-5.1); UREA NITROGEN, BLOOD 30 mg/dL (7-18)
[2018-12-31 06:56] LABS: BASOPHILS % (AUTO) 0.4 % (0.0-2.0); EOSINOPHILS # (AUTO) 0.2 K/uL (0.0-0.7); NEUTROPHILS # (AUTO) 2.8 K/uL (1.8-8.9)
[2018-12-31 07:12] LABS: EOSINOPHILS % (AUTO) 3.7 % (0.0-7.0); LYMPHOCYTES # (AUTO) 1.6 K/uL (20.0-40.0); LYMPHOCYTES % (AUTO) 30.8 % (20.5-51.5); MEAN CORPUSCULAR HEMOGLOBIN 29.3 uug (23.8-33.4); MEAN CORPUSCULAR HGB CONC 33 g/dL (32.5-36.3); MEAN CORPUSCULAR VOLUME 89.8 fL (73.0-96.2); MONOCYTES # (AUTO) 0.5 K/uL (2.0-10.0); MONOCYTES % (AUTO) 10.6 % (0.0-11.0); NEUTROPHILS % (AUTO) 54.5 % (38.5-71.5); PLATELET COUNT (AUTO) 302 K/uL (152-348); RED BLOOD CELL COUNT(AUTO) 2.26 MIL/uL (4.06-5.63); WHITE BLOOD COUNT (AUTO) 5.2 K/uL (3.6-10.2)
[2018-12-31 07:14] LABS: HEMOGLOBIN 6.6 g/dL (12.5-16.3)
[2018-12-31 07:16] LABS: HEMATOCRIT 20.3 % (36.7-47.1)
[2018-12-31 07:45] LABS: FERRITIN > 2000 ng/mL (26-388)
[2018-12-31] MEDS: SEVELAMER CARBONATE 800 MG TABLET PO SCH ×3 (08:00→18:00)
[2018-12-31 08:01] LABS: BASOPHILS % (MANUAL) 1 % (0-2); EOSINOPHILS % (MANUAL) 3 % (0-8); LYMPHOCYTES % (MANUAL) 31 % (20-40); METAMYELOCYTES % 1 % (0-1); MONOCYTES % (MANUAL) 11 % (2-10); NEUTROPHILS % (MANUAL) 53 % (42-75)
[2018-12-31] MEDS: BUDESONIDE 0.5 MG/2 ML NEBU IH SCH ×2 (08:01→19:30)
[2018-12-31] MEDS: NIFEdipine XL 60 MG TABSR PO SCH ×2 (08:36→23:00)
[2018-12-31] MEDS: BENAZEPRIL HCL 20 MG TABLET PO SCH (08:36)
[2018-12-31] MEDS: ISOSORBIDE MONONITRATE 60 MG TAB.SR.24H PO SCH (08:36)
[2018-12-31] MEDS: DRONABINOL 2.5 MG CAPSULE PO SCH (08:37)
[2018-12-31] MEDS: FOLIC ACID/VITAMIN B COMP W-C TABLET PO SCH (08:37)
[2018-12-31] MEDS: FAMOTIDINE 20 MG TABLET PO SCH (08:37)
[2018-12-31] MEDS: MIRTAZAPINE 15 MG TABLET PO SCH ×2 (08:37→17:00)
[2018-12-31] MEDS: ESCITALOPRAM OXALATE 10 MG TABLET PO SCH (08:37)
[2018-12-31] MEDS: SENNOSIDES 1 TABLET PO SCH (08:38)
[2018-12-31] MEDS ORDERED: PAMIDRONATE DISODIUM 90 MG in IV NORMAL SALINE 500 ML IV ONE (09:00)
[2018-12-31] MEDS ORDERED: POLYMYXIN B SULFATE 500,000 UNITS, BACITRACIN 50,000 UNITS, NORMAL SALINE 20 ML MC ONE ×3 (13:15)
[2018-12-31 13:41] LABS: BASOPHILS % (AUTO) 0.6 % (0.0-2.0); EOSINOPHILS # (AUTO) 0.2 K/uL (0.0-0.7); EOSINOPHILS % (AUTO) 3.7 % (0.0-7.0); HEMATOCRIT 22.9 % (36.7-47.1); HEMOGLOBIN 7.5 g/dL (12.5-16.3); LYMPHOCYTES % (AUTO) 32.6 % (20.5-51.5); MEAN CORPUSCULAR HEMOGLOBIN 29.6 uug (23.8-33.4); MEAN CORPUSCULAR HGB CONC 33 g/dL (32.5-36.3); MEAN CORPUSCULAR VOLUME 90.3 fL (73.0-96.2); MONOCYTES # (AUTO) 0.7 K/uL (2.0-10.0); MONOCYTES % (AUTO) 11.6 % (0.0-11.0); NEUTROPHILS # (AUTO) 3.2 K/uL (1.8-8.9); NEUTROPHILS % (AUTO) 51.5 % (38.5-71.5); PLATELET COUNT (AUTO) 290 K/uL (152-348); RED BLOOD CELL COUNT(AUTO) 2.53 MIL/uL (4.06-5.63); WHITE BLOOD COUNT (AUTO) 6.3 K/uL (3.6-10.2)
[2018-12-31] MEDS ORDERED: VANCOMYCIN 1000 MG VIAL ONE (13:45)
[2018-12-31] MEDS ORDERED: HYDROMORPHONE 2 MG/1 ML DISP.SYRIN ONE ×2 (15:03→17:41)
[2018-12-31] MEDS ORDERED: MIDAZOLAM HCL 2 MG/2 ML VIAL ONE ×2 (15:04→17:37)
[2018-12-31] MEDS ORDERED: CEFAZOLIN 1 G VIAL IM ONE (16:37)
[2018-12-31] MEDS ORDERED: diphenhydrAMINE 50 MG/1 ML VIAL IM ONE (16:37)
[2018-12-31] MEDS ORDERED: METOCLOPRAMIDE HCL 10 MG/2 ML VIAL IV ONE (16:37)
[2018-12-31] MEDS ORDERED: ONDANSETRON 4 MG/2 ML VIAL IV ONE (16:37)
[2018-12-31] MEDS ORDERED: MIDAZOLAM HCL 2 MG/2 ML VIAL IM ONE (16:37)
[2018-12-31] MEDS ORDERED: IV NORMAL SALINE 1000 ML BAG IV ONE ×2 (16:37)
[2018-12-31] MEDS ORDERED: SEVOFLURANE 250 ML BOTTLE IH ONE (16:37)
[2018-12-31] MEDS ORDERED: HYDROMORPHONE 2 MG/1 ML DISP.SYRIN IV ONE (16:37)
[2018-12-31] MEDS ORDERED: PROPOFOL 200 MG/20 ML BOTTLE IV ONE (16:37)
[2018-12-31] MEDS ORDERED: FENTANYL CITRATE 100 MCG/2 ML AMPUL ONE (16:56)
[2018-12-31] MEDS ORDERED: HYDROMORPHONE 1 MG/1 ML DISP.SYRIN ONE (17:23)
[2018-12-31] MEDS ORDERED: IV 1/2NS 1000 ML 1,000 ML IV PRN (18:00)
[2018-12-31] MEDS ORDERED: LABETALOL HCL 100 MG/20 ML VIAL ONE (18:11)
[2018-12-31] MEDS ORDERED: PAMIDRONATE DISODIUM 60 MG in IV NORMAL SALINE 500 ML IV ONE (20:00)
[2018-12-31] MEDS: MORPHINE SULFATE 4 MG/1 ML DISP.SYRIN IV PRN ×2 (20:25→23:35)
[2018-12-31] MEDS: DOCUSATE SODIUM 100 MG CAPSULE PO SCH (23:00)
[2019-01-01] MEDS: MORPHINE SULFATE 4 MG/1 ML DISP.SYRIN IV PRN ×4 (01:33→08:53)
[2019-01-01] MEDS: ONDANSETRON 4 MG/2 ML VIAL IV PRN (03:48)
[2019-01-01 06:09] VITALS: BP 178/81
[2019-01-01] MEDS ORDERED: LABETALOL HCL 100 MG TABLET ONE (06:16)
[2019-01-01] MEDS: LABETALOL HCL 200 MG TABLET PO SCH ×3 (06:21→21:33)
[2019-01-01 06:28] LABS: BASOPHILS % (AUTO) 0.3 % (0.0-2.0); EOSINOPHILS # (AUTO) 0.2 K/uL (0.0-0.7); EOSINOPHILS % (AUTO) 2.6 % (0.0-7.0); LYMPHOCYTES # (AUTO) 1.3 K/uL (20.0-40.0); LYMPHOCYTES % (AUTO) 18.9 % (20.5-51.5); MEAN CORPUSCULAR HGB CONC 33 g/dL (32.5-36.3); MEAN CORPUSCULAR VOLUME 89.9 fL (73.0-96.2); MONOCYTES # (AUTO) 0.6 K/uL (2.0-10.0); MONOCYTES % (AUTO) 8.7 % (0.0-11.0); NEUTROPHILS # (AUTO) 4.9 K/uL (1.8-8.9); NEUTROPHILS % (AUTO) 69.5 % (38.5-71.5); PLATELET COUNT (AUTO) 279 K/uL (152-348)
[2019-01-01 06:42] LABS: MAGNESIUM 2.2 mg/dL (1.8-2.4); PHOSPHOROUS 5.3 mg/dL (2.5-4.9)
[2019-01-01 06:48] LABS: CREATININE 8.8 mg/dL (0.6-1.3)
[2019-01-01 07:05] LABS: RED BLOOD CELL COUNT(AUTO) 2.34 MIL/uL (4.06-5.63)
[2019-01-01] MEDS: BUDESONIDE 0.5 MG/2 ML NEBU IH SCH ×2 (07:43→19:42)
[2019-01-01] MEDS: ALBUTEROL SULFATE 2.5 MG/3 ML NEBU IH PRN (07:44)
[2019-01-01] MEDS: SEVELAMER CARBONATE 800 MG TABLET PO SCH ×3 (08:00→17:53)
[2019-01-01] MEDS: ESCITALOPRAM OXALATE 10 MG TABLET PO SCH (08:52)
[2019-01-01] MEDS: ISOSORBIDE MONONITRATE 60 MG TAB.SR.24H PO SCH (08:52)
[2019-01-01] MEDS: DRONABINOL 2.5 MG CAPSULE PO SCH (08:52)
[2019-01-01] MEDS: FOLIC ACID/VITAMIN B COMP W-C TABLET PO SCH (08:52)
[2019-01-01] MEDS: FAMOTIDINE 20 MG TABLET PO SCH (08:53)
[2019-01-01] MEDS: MIRTAZAPINE 15 MG TABLET PO SCH ×2 (08:53→17:53)
[2019-01-01] MEDS: NIFEdipine XL 60 MG TABSR PO SCH ×2 (09:00→20:50)
[2019-01-01] MEDS: HYDROMORPHONE 1 MG/1 ML DISP.SYRIN IV PRN ×5 (12:26→23:52)
[2019-01-01] MEDS ORDERED: EPOETIN ALFA 10,000 UNITS/ML VIAL IVP ONE (15:30)
[2019-01-01 15:37] VITALS: BP 172/71
[2019-01-01] MEDS: BENAZEPRIL HCL 20 MG TABLET PO SCH (17:54)
[2019-01-01] MEDS: HYDROCODONE/APAP 10-325 MG TABLET PO PRN (19:41)
[2019-01-01 19:45] VITALS: BP 170/58
[2019-01-01] MEDS: DOCUSATE SODIUM 100 MG CAPSULE PO SCH (20:58)
[2019-01-02] VITALS (11 sets, daily range): BP systolic 135–159; BP diastolic 52–72
[2019-01-02] MEDS: HYDROCODONE/APAP 10-325 MG TABLET PO PRN (02:08)
[2019-01-02] MEDS: HYDROMORPHONE 1 MG/1 ML DISP.SYRIN IV PRN ×6 (02:55→23:33)
[2019-01-02] MEDS: LABETALOL HCL 200 MG TABLET PO SCH ×3 (05:53→21:23)
[2019-01-02 06:10] LABS: CREATININE 7.3 mg/dL (0.6-1.3); MAGNESIUM 2.1 mg/dL (1.8-2.4); PHOSPHOROUS 4.1 mg/dL (2.5-4.9)
[2019-01-02 06:41] LABS: EOSINOPHILS # (AUTO) 0.1 K/uL (0.0-0.7); LYMPHOCYTES # (AUTO) 1.5 K/uL (20.0-40.0); MEAN CORPUSCULAR HEMOGLOBIN 29.7 uug (23.8-33.4)
[2019-01-02 06:44] LABS: BASOPHILS % (AUTO) 0.4 % (0.0-2.0); EOSINOPHILS % (AUTO) 1.4 % (0.0-7.0); LYMPHOCYTES % (AUTO) 19.5 % (20.5-51.5); MEAN CORPUSCULAR HGB CONC 34 g/dL (32.5-36.3); MEAN CORPUSCULAR VOLUME 88.7 fL (73.0-96.2); MONOCYTES # (AUTO) 0.7 K/uL (2.0-10.0); MONOCYTES % (AUTO) 9.4 % (0.0-11.0); NEUTROPHILS # (AUTO) 5.4 K/uL (1.8-8.9); NEUTROPHILS % (AUTO) 69.3 % (38.5-71.5); PLATELET COUNT (AUTO) 312 K/uL (152-348); WHITE BLOOD COUNT (AUTO) 7.9 K/uL (3.6-10.2)
[2019-01-02] MEDS: BUDESONIDE 0.5 MG/2 ML NEBU IH SCH ×3 (07:38→19:24)
[2019-01-02 07:53] LABS: RED BLOOD CELL COUNT(AUTO) 2.33 MIL/uL (4.06-5.63)
[2019-01-02 07:55] LABS: HEMATOCRIT 20.7 % (36.7-47.1); HEMOGLOBIN 6.9 g/dL (12.5-16.3)
[2019-01-02] MEDS: FOLIC ACID/VITAMIN B COMP W-C TABLET PO SCH (09:21)
[2019-01-02] MEDS: MIRTAZAPINE 15 MG TABLET PO SCH ×2 (09:21→17:10)
[2019-01-02] MEDS: FAMOTIDINE 20 MG TABLET PO SCH (09:21)
[2019-01-02] MEDS: DRONABINOL 2.5 MG CAPSULE PO SCH (09:22)
[2019-01-02] MEDS: SEVELAMER CARBONATE 800 MG TABLET PO SCH ×3 (09:22→17:10)
[2019-01-02] MEDS: ESCITALOPRAM OXALATE 10 MG TABLET PO SCH (09:22)
[2019-01-02] MEDS: ISOSORBIDE MONONITRATE 60 MG TAB.SR.24H PO SCH (09:23)
[2019-01-02] MEDS: BENAZEPRIL HCL 20 MG TABLET PO SCH (09:23)
[2019-01-02] MEDS: NIFEdipine XL 60 MG TABSR PO SCH ×2 (09:24→20:19)
[2019-01-02 11:06] LABS: BAND % (MANUAL) 3 % (0-10); EOSINOPHILS % (MANUAL) 2 % (0-8); LYMPHOCYTES % (MANUAL) 21 % (20-40); MONOCYTES % (MANUAL) 10 % (2-10); NEUTROPHILS % (MANUAL) 64 % (42-75)
[2019-01-02] MEDS: DOCUSATE SODIUM 100 MG CAPSULE PO SCH (20:20)
[2019-01-03] MEDS: LABETALOL HCL 200 MG TABLET PO SCH ×2 (06:00→14:47)
[2019-01-03 06:18] VITALS: BP 135/39
[2019-01-03] MEDS: HYDROMORPHONE 1 MG/1 ML DISP.SYRIN IV PRN ×4 (06:31→18:52)
[2019-01-03 07:19] LABS: BASOPHILS % (AUTO) 0.5 % (0.0-2.0); EOSINOPHILS # (AUTO) 0.2 K/uL (0.0-0.7); EOSINOPHILS % (AUTO) 2.3 % (0.0-7.0); LYMPHOCYTES # (AUTO) 1.5 K/uL (20.0-40.0); LYMPHOCYTES % (AUTO) 19.5 % (20.5-51.5); MEAN CORPUSCULAR HGB CONC 33 g/dL (32.5-36.3); MEAN CORPUSCULAR VOLUME 87.8 fL (73.0-96.2); MONOCYTES # (AUTO) 0.7 K/uL (2.0-10.0); MONOCYTES % (AUTO) 9.6 % (0.0-11.0); NEUTROPHILS # (AUTO) 5.2 K/uL (1.8-8.9); NEUTROPHILS % (AUTO) 68.1 % (38.5-71.5); PLATELET COUNT (AUTO) 319 K/uL (152-348); RED BLOOD CELL COUNT(AUTO) 2.76 MIL/uL (4.06-5.63); WHITE BLOOD COUNT (AUTO) 7.7 K/uL (3.6-10.2)
[2019-01-03 07:25] LABS: POTASSIUM 5.1 mmol/L (3.5-5.1)
[2019-01-03] MEDS: BUDESONIDE 0.5 MG/2 ML NEBU IH SCH ×2 (07:30→19:45)
[2019-01-03 07:54] LABS: HEMATOCRIT 24.2 % (36.7-47.1)
[2019-01-03 08:02] LABS: CREATININE 9.3 mg/dL (0.6-1.3)
[2019-01-03] MEDS: MIRTAZAPINE 15 MG TABLET PO SCH ×2 (09:00→17:00)
[2019-01-03] MEDS: NIFEdipine XL 60 MG TABSR PO SCH (09:00)
[2019-01-03] MEDS: FAMOTIDINE 20 MG TABLET PO SCH (09:00)
[2019-01-03] MEDS: SENNOSIDES 1 TABLET PO SCH (09:00)
[2019-01-03] MEDS: ISOSORBIDE MONONITRATE 60 MG TAB.SR.24H PO SCH (09:00)
[2019-01-03] MEDS: BENAZEPRIL HCL 20 MG TABLET PO SCH (09:00)
[2019-01-03] MEDS: SEVELAMER CARBONATE 800 MG TABLET PO SCH ×3 (09:33→17:50)
[2019-01-03] MEDS: ESCITALOPRAM OXALATE 10 MG TABLET PO SCH (09:34)
[2019-01-03] MEDS: FOLIC ACID/VITAMIN B COMP W-C TABLET PO SCH (09:35)
[2019-01-03] MEDS: DRONABINOL 2.5 MG CAPSULE PO SCH (09:35)
[2019-01-03 11:33] VITALS: BP 140/44
[2019-01-03 15:56] VITALS: BP 137/58
== END 2019-01-03 21:49 | DRG 315 ==
LOC: ER 12:01 → MEDSURG3 15:37
PROVIDERS: ADMIT Hospitalist; ATTEND Hospitalist
PROC: 5A1D70Z Performance of Urinary Filtration, Intermittent, Less than 6 Hours Per Day (ICD-10-PCS; principal; 2018-12-30)
PROC: 30233N1 Transfusion of Nonautologous Red Blood Cells into Peripheral Vein, Percutaneous Approach (ICD-10-PCS; principal; 2018-12-30)
PROC: 0PSF06Z Reposition Right Humeral Shaft with Intramedullary Internal Fixation Device, Open Approach (ICD-10-PCS; 2018-12-31)
DX: M84.521A Pathological fracture in neoplastic disease, right humerus, initial encounter for fracture (principal); E43 Unspecified severe protein-calorie malnutrition; C79.51 Secondary malignant neoplasm of bone; C90.00 Multiple myeloma not having achieved remission; I13.11 Hypertensive heart and chronic kidney disease without heart failure, with stage 5 chronic kidney disease, or end stage renal disease; M84.511A Pathological fracture in neoplastic disease, right shoulder, initial encounter for fracture; N18.6 End stage renal disease; Z99.2 Dependence on renal dialysis; E83.52 Hypercalcemia; K21.0 Gastro-esophageal reflux disease with esophagitis; K29.80 Duodenitis without bleeding; D63.0 Anemia in neoplastic disease; G89.4 Chronic pain syndrome; E87.1 Hypo-osmolality and hyponatremia; D63.1 Anemia in chronic kidney disease; K59.00 Constipation, unspecified; K44.9 Diaphragmatic hernia without obstruction or gangrene; K29.70 Gastritis, unspecified, without bleeding; Z91.19 Patient's noncompliance with other medical treatment and regimen; Z91.14 Patient's other noncompliance with medication regimen; Z79.899 Other long term (current) drug therapy; Z79.51 Long term (current) use of inhaled steroids
CPT/HCPCS: 36415; 70030-TC; 71045; 73060; 83550; 83735; 84100; 85025; 85730; 86850; 86900; 86901; 86920; 90937; 93005; 94640; 94664; A4649; A4663; C1713; G0378; J0690; J0885; J1170; J1200; J2250; J2270; J2405; J2430; J2765; J3010; J3370; J3490; J7030; J7040; J7050; P9016-BL; P9021; Q0167

== ENCOUNTER 2019-01-20 00:43 | Inpatient (IN) | payer OTHER ==
[~2019-01-20] VITALS: Ht 170.2 cm; Wt 64.6 kg
[~2019-01-20 00:43] MED LIST changes: +ALBU2.5V38 IH; -AMLO5TAB4 PO; +BUDE0.5A4 IH; +CLON0.1T PO; -CLON0.2T PO; -CYCL5TAB PO; -DIPH25CA83 PO; +DRON2.5C11 PO; +ESCI10TA PO; +FAMO-132 PO; +FOLI0.8T23 PO; -GUAI237L83 PO; +HEPA500034 SQ; +HYDR-4384 PO; +HYDR2TAB4 PO; +HYPR15DR4 OP; +ISOS60TA4 PO; +LABE200T5 PO; -LABE200T8 PO; +MAGN30OR PO; -MELA3TAB PO; +MELA3TAB63 PO; -METO5TAB87 PO; +MIRT15TA7 PO; +NIFE60TA2 PO; +ONDA4TAB10 PO; -PANT40TA2 PO; -PARO-154 PO; -POLY15DR31 OP; +SENN-18 PO; -VIT1TABL44 PO
[2019-01-20] MEDS ORDERED: PHENYLEPHRINE 1% (EXTRA STR) NASAL SPRAY NS ONE ×2 (00:58→01:00)
[2019-01-20] MEDS ORDERED: HYDROMORPHONE HCL 2 MG TABLET ONE (00:58)
[2019-01-20] MEDS ORDERED: HYDROMORPHONE HCL 2 MG TABLET PO ONE ×2 (01:00)
[2019-01-20 01:12] LABS: ABG BASE EXCESS 2.9 mmol/L; ABG HCO3 25.7 mmol/L; ABG PCO2 32.4 mmHg (35.0-45.0); ABG PH 7.518 (7.350-7.450); ABG PO2 48.2 mmHg (75.0-100.0); ABG SITE RIGHT RADIAL; ABG TOTAL HEMOGLOBIN 8.5 G/dL (13.5-18.0); COHb 2.5 % (0.5-1.5); MetHb 0.2 % (0.0-1.5); O2Hb 85.7 % (94.0-97.0); VENT MODE ROOM AIR
[2019-01-20 01:19] LABS: BASOPHILS % (AUTO) 0.5 % (0.0-2.0); EOSINOPHILS # (AUTO) 0.1 K/uL (0.0-0.7); EOSINOPHILS % (AUTO) 2.2 % (0.0-7.0); HEMATOCRIT 22.9 % (36.7-47.1); HEMOGLOBIN 7.6 g/dL (12.5-16.3); LYMPHOCYTES # (AUTO) 1.5 K/uL (20.0-40.0); LYMPHOCYTES % (AUTO) 22.5 % (20.5-51.5); MEAN CORPUSCULAR HEMOGLOBIN 29.8 uug (23.8-33.4); MEAN CORPUSCULAR HGB CONC 33 g/dL (32.5-36.3); MEAN CORPUSCULAR VOLUME 89.6 fL (73.0-96.2); MONOCYTES # (AUTO) 0.8 K/uL (2.0-10.0); MONOCYTES % (AUTO) 11.6 % (0.0-11.0); NEUTROPHILS # (AUTO) 4.2 K/uL (1.8-8.9); NEUTROPHILS % (AUTO) 63.2 % (38.5-71.5); PLATELET COUNT (AUTO) 242 K/uL (152-348); RED BLOOD CELL COUNT(AUTO) 2.55 MIL/uL (4.06-5.63); WHITE BLOOD COUNT (AUTO) 6.6 K/uL (3.6-10.2)
[2019-01-20] MEDS ORDERED: LABE200T5 PO (01:27)
[2019-01-20] MEDS ORDERED: MAG30ORA2 PO (01:27)
[2019-01-20] MEDS ORDERED: MELA3TAB63 PO (01:27)
[2019-01-20] MEDS ORDERED: HYDR2TAB4 PO (01:27)
[2019-01-20] MEDS ORDERED: HYDR-3326 PO (01:27)
[2019-01-20] MEDS ORDERED: ISOS60TA4 PO (01:27)
[2019-01-20] MEDS ORDERED: ACET-2154 PO (01:27)
[2019-01-20] MEDS ORDERED: FOLI0.8T41 PO (01:27)
[2019-01-20] MEDS ORDERED: DRON2.5C PO (01:27)
[2019-01-20] MEDS ORDERED: ESCI10TA55 PO (01:27)
[2019-01-20] MEDS ORDERED: SENN-22 PO (01:27)
[2019-01-20] MEDS ORDERED: FAMO-132 PO (01:27)
[2019-01-20] MEDS ORDERED: BUDE0.5A4 IH (01:27)
[2019-01-20] MEDS ORDERED: CLON0.1T PO (01:27)
[2019-01-20] MEDS ORDERED: HEPA500034 SQ (01:27)
[2019-01-20] MEDS ORDERED: NIFE60TA2 PO (01:27)
[2019-01-20] MEDS ORDERED: ONDA4TAB10 PO (01:27)
[2019-01-20] MEDS ORDERED: HYPR15DR4 OP (01:27)
[2019-01-20] MEDS ORDERED: CALC667T6 PO (01:27)
[2019-01-20] MEDS ORDERED: BENA40TA8 PO (01:27)
[2019-01-20 01:29] LABS: POTASSIUM 6.2 mmol/L (3.5-5.1)
[2019-01-20 01:30] LABS: CREATININE 13.7 mg/dL (0.6-1.3)
[2019-01-20 01:33] LABS: ALANINE AMINOTRANSFERASE < 6 U/L (16-63); ALKALINE PHOSPHATASE 84 U/L (50-136); ASPARTATE AMINOTRANSFERASE 13 U/L (15-37); BILIRUBIN,DIRECT 0.3 mg/dL (0.0-0.2); BILIRUBIN,TOTAL 1.1 mg/dL (0.2-1.0); PHOSPHOROUS 4.4 mg/dL (2.5-4.9); TOTAL PROTEIN, SERUM 11.6 g/dL (6.4-8.2)
[2019-01-20] MEDS ORDERED: INSULIN REGULAR, HUMAN 300 UNIT/3 ML VIAL IV ONE (01:45)
[2019-01-20] MEDS ORDERED: SODIUM BICARBONATE 8.4% 50 MEQ/50 ML DISP.SYRIN IV ONE ×2 (01:45→02:16)
[2019-01-20] MEDS ORDERED: DEXTROSE 50% 50 ML DISP.SYRIN IV ONE (01:45)
[2019-01-20] MEDS ORDERED: LEVOFLOXACIN 750 MG/D5W 150 ML PIGGYBACK IV ONE (01:45)
[2019-01-20] MEDS ORDERED: SODIUM POLYSTYRENE SULFONATE 15 G/60 ML LIQUID UDC PO ONE (01:45)
--- NOTE | 2019-01-20 01:55 | NUR ---
Dr. Miller speaking with Dr. Ortiz.
[2019-01-20] MEDS ORDERED: FUROSEMIDE 40 MG/4 ML VIAL IV ONE (02:00)
--- NOTE | 2019-01-20 02:00 | NUR ---
Dr. Miller speaking with Dr. Pankaj Ortiz.
[2019-01-20] MEDS ORDERED: FUROSEMIDE 40 MG/4 ML VIAL ONE (02:15)
[2019-01-20] MEDS ORDERED: LEVOFLOXACIN 750MG/D5W 150 ML IV ONE (02:16)
[2019-01-20] MEDS ORDERED: DEXTROSE 50% 50 ML DISP.SYRIN ONE (02:16)
[2019-01-20] MEDS ORDERED: SODIUM POLYSTYRENE SULF POWDER 15 GM UDC ONE ×2 (02:16→02:17)
[2019-01-20] MEDS ORDERED: INSULIN REGULAR, HUMAN 300 UNIT/3 ML VIAL ONE (02:17)
--- NOTE | 2019-01-20 02:54 | NUR ---
Called [facility] to page Dr. Chairez
[2019-01-20] MEDS ORDERED: MAGNESIUM HYDROXIDE 30 ML LIQUID UDC PO PRN (03:15)
[2019-01-20] MEDS ORDERED: ONDANSETRON HCL 4 MG TABLET PO PRN (03:15)
[2019-01-20] MEDS ORDERED: Medication Not On Formulary EA (Magnesium Hydroxide/Al Hydrox (Mag-Al Liquid) 30 ML) PO PRN (03:15)
[2019-01-20] MEDS ORDERED: Medication Not On Formulary EA (Hypromellose (Isopto Tears) 2 DROP) OP PRN (03:15)
[2019-01-20] MEDS ORDERED: HYDROMORPHONE HCL 2 MG TABLET PO PRN ×2 (03:15→16:15)
[2019-01-20] MEDS ORDERED: MELATONIN 3 MG TABLET PO PRN (03:15)
[2019-01-20] MEDS ORDERED: ALBUTEROL SULFATE 2.5 MG/3 ML NEBU IH PRN ×2 (03:15→10:43)
[2019-01-20] MEDS ORDERED: HYDROCODONE/APAP 5-325MG TABLET PO PRN (03:15)
[2019-01-20] MEDS ORDERED: Z GUARD REMEDY PASTE 57 GM TUBE TOP PRN (03:15)
[2019-01-20] MEDS ORDERED: ACETAMINOPHEN 325 MG TABLET PO PRN ×2 (03:15)
--- NOTE | 2019-01-20 03:17 | NUR ---
Pt. admitted to [facility] , under care of Dr. Byers Belongs List completed. MRSA swab done
[2019-01-20 04:45] VITALS: BP 182/87
[2019-01-20] MEDS: CLONIDINE HCL 0.1 MG TABLET PO PRN ×3 (04:52→20:06)
[2019-01-20] MEDS ORDERED: VANCOMYCIN IV 1,250 MG in IV DEXTROSE 5% 250 ML IV ONE (05:00)
[2019-01-20] MEDS ORDERED: DEXTROSE 5% IV ONE (05:00)
[2019-01-20] MEDS ORDERED: CEFEPIME HCL IV ONE (05:00)
[2019-01-20] MEDS ORDERED: VANCOMYCIN 1000 MG VIAL ONE (05:14)
[2019-01-20] MEDS ORDERED: VANCOMYCIN HCL 500 MG VIAL ONE (05:14)
[2019-01-20] MEDS ORDERED: MEROPENEM 500 MG VIAL IV ONE (05:15)
[2019-01-20] MEDS: LABETALOL HCL 200 MG TABLET PO SCH ×3 (06:00→21:20)
[2019-01-20] MEDS ORDERED: CEFEPIME HCL 2 G in IV DEXTROSE 5% 100 ML IV SCH (06:00)
--- NOTE | 2019-01-20 06:14 | NUR ---
PO LABETALOL WITHHELD D/T MED NOT VERIFIED
[2019-01-20] MEDS ORDERED: MAG HYDROX/AL HYDROX/SIMETH 30 ML LIQUID UDC PO PRN (07:15)
[2019-01-20] MEDS: BUDESONIDE 0.5 MG/2 ML NEBU IH SCH ×2 (07:30→19:30)
--- NOTE | 2019-01-20 07:30 | NUR ---
Sleeping, appears comfortable.
[2019-01-20] MEDS ORDERED: POLYVINYL ALCOHOL OPHT DROPS 15 ML BOTTLE EACHEYE PRN (07:45)
[2019-01-20] MEDS: SEVELAMER CARBONATE 800 MG TABLET PO SCH ×3 (08:00→17:44)
[2019-01-20] MEDS ORDERED: HEPARIN SODIUM,PORCINE 5,000 UNITS/ML VIAL SQ SCH (09:00)
[2019-01-20] MEDS: MIRTAZAPINE 15 MG TABLET PO SCH ×2 (09:00→17:00)
--- NOTE | 2019-01-20 10:30 | NUR ---
Hemodialysis consent signed, Hemodialysis started. AM medications not yet given.
[2019-01-20] MEDS ORDERED: IPRATROPIUM BROMIDE 0.5 MG/2.5 ML NEBU NEB PRN (11:00)
--- NOTE | 2019-01-20 11:39 | NUR ---
CLINICAL PHARMACY NOTE:VANCOMYCIN DOSING S To start vancomycin dosing on 48 y/o male dialysis patient for PNA. O temp 98.3 BUN 77 Scr 13.7 (on HD) WBC 6.6 ht 170 cm wt 67 kg Plan Patient received vanco 1250 mg IVPB x1 today at 0600. HD has been scheduled for today. No dose shall be due today. Will dose by pre-HD level. Plan to order next pre-HD level with next HD for further dosing. Will continue to monitor
[2019-01-20 12:00] VITALS: BP 152/79
--- NOTE | 2019-01-20 12:00 | NUR ---
Received hand off report from TONIO Soto. Patient receiving HD at this time.
[2019-01-20] MEDS: NIFEdipine XL 60 MG TABSR PO SCH ×2 (14:14→16:02)
--- NOTE | 2019-01-20 14:30 | NUR ---
Patient refusing to take 0900 medications until IV on LLE removed. Educated on benefit of medications and the risk associated with removing LLE peripheral IV access until midline is inserted. After education, patient agreed to take PRN Clonidine and 0900 blood pressure medications at this time. Will continue to monitor.
[2019-01-20 16:00] VITALS: BP 132/36
[2019-01-20] MEDS: ISOSORBIDE MONONITRATE 60 MG TAB.SR.24H PO SCH (17:42)
[2019-01-20] MEDS: DRONABINOL 2.5 MG CAPSULE PO SCH (17:43)
[2019-01-20] MEDS: FAMOTIDINE 20 MG TABLET PO SCH (17:43)
[2019-01-20] MEDS: FOLIC ACID/VITAMIN B COMP W-C TABLET PO SCH (17:43)
[2019-01-20] MEDS: ESCITALOPRAM OXALATE 10 MG TABLET PO SCH (17:43)
--- NOTE | 2019-01-20 18:02 | NUR ---
Patient still not compliant with medication regimen. Refusing to take 0900 medication at this time. Educated on benefits and importance of medication. In no acute distress at this time. Safety measures implemented at all times. Will endorse to caustic cresylate shift superintendent accordingly.
[2019-01-20 20:01] VITALS: BP 190/80
[2019-01-20] MEDS: CEFEPIME HCL 0.5 G in IV DEXTROSE 5% 50 ML IV SCH (21:19)
--- NOTE | 2019-01-20 23:15 | NUR ---
CENTRAL VENOUS CATHETER INSERTION Costume Technician[facility] Patient assessed for CVC insertion, order in the chart and consent signed. Right neck ultrasound performed to identify adequate internal jugular vein, vein is patent and compressible. Right neck prepped in normal sterile fashion with CHG and allowed to dry. Ultrasound used to visualize the previously identified right internal jugular vein. Lidocaine 1% used to anesthetize the insertion site. Using ultrasound, introducer needle inserted into vein using Seldinger's technique. Good dark non pulsatile venous blood flow noted. Guidewire placed without difficulty. Small 2mm laceration made at insertion site. Dilator was inserted over the wire without difficulty then removed. 7F triple lumen cvc inserted fully without difficulty over the guidewire. Guidewire removed. Each port aspirated easily and flushed with 10ml sterile saline without difficulty using a push pause technique. CVC line secured with two sutures, biopatch placed and Tegaderm secured to patient. Blood loss approximately 3ml. Patient tolerated procedure well with complications. Stat one view portable chest xray performed. Chest xray results show right internal jugular cvc in proper position. Reported to RN.
[2019-01-20] MEDS ORDERED: HYDROMORPHONE 1 MG/1 ML DISP.SYRIN ONE (23:35)
[2019-01-20] MEDS: HYDROMORPHONE 1 MG/1 ML DISP.SYRIN IV PRN (23:39)
[2019-01-21] VITALS (10 sets, daily range): BP systolic 135–166; BP diastolic 47–76
[2019-01-21] MEDS: HYDROMORPHONE 1 MG/1 ML DISP.SYRIN IV PRN ×5 (03:39→21:18)
[2019-01-21 04:06] LABS: HEPATITIS B SURFACE AB Non Reactive (.); HEPATITIS B SURFACE AG Negative (Negative)
--- NOTE | 2019-01-21 05:02 | NUR ---
Crime[employer] not working until 0230 on my shift. patient received in bed watching TV. clonidine administered for bp at 190/80. re-checked 1 hour later and bp trending down at 144/38. c/o of pain and Dilaudid PO attempted to administer, patient refused because he wanted Dilaudid IV. Labetalol refused by patient despite education. both Meds returned to [facility]. order obtained from Dr. Ashley. Consent signed and inserted. patient tolerated well. system down so Dilaudid 0.5mg overwritten by nursing housekeeping/laundry supervisor on leaf size picker in [facility] to administer to patient. administered and tolerated well. Dilaudid 0.5mg administered at 2339 and 0339 on my shift. no signs of acute distress throughout shift. safety and comfort measures provided at all times. Central line triple lumen flushed, patent and intact. will continue plan of care and endorse to morning nurse accordingly.
[2019-01-21] MEDS: LABETALOL HCL 200 MG TABLET PO SCH ×3 (05:21→21:27)
[2019-01-21 06:53] LABS: MAGNESIUM 2.4 mg/dL (1.8-2.4); PHOSPHOROUS 3.4 mg/dL (2.5-4.9); POTASSIUM 4.8 mmol/L (3.5-5.1)
[2019-01-21 06:54] LABS: CREATININE 8.5 mg/dL (0.6-1.3)
[2019-01-21] MEDS: BUDESONIDE 0.5 MG/2 ML NEBU IH SCH ×2 (07:45→23:10)
[2019-01-21 07:59] LABS: WHITE BLOOD COUNT (AUTO) 5.9 K/UL (4.0-11.2)
[2019-01-21 08:00] LABS: BASOPHILS % (AUTO) 0.5 % (0.0-2.0); EOSINOPHILS % (AUTO) 1.3 % (0.0-7.0); LYMPHOCYTES # (AUTO) 1.7 K/UL (0.8-4.8); LYMPHOCYTES % (AUTO) 28.1 % (20.5-51.5); MEAN CORPUSCULAR HEMOGLOBIN 30.7 UUG (27.0-31.0); MEAN CORPUSCULAR HGB CONC 34 g/dL (32.0-37.0); MEAN CORPUSCULAR VOLUME 91.3 FL (82.0-92.0); MONOCYTES # (AUTO) 0.7 K/UL (0.1-1.30); MONOCYTES % (AUTO) 12.3 % (0.0-11.0); NEUTROPHILS # (AUTO) 3.4 K/UL (1.8-8.9); NEUTROPHILS % (AUTO) 57.8 % (38.5-71.5); PLATELET COUNT (AUTO) 204 K/UL (150-450)
[2019-01-21 08:01] LABS: EOSINOPHILS # (AUTO) 0.1 K/uL (0.0-0.7)
[2019-01-21 08:03] LABS: HEMATOCRIT 19.2 % (40-50); HEMOGLOBIN 6.5 G/DL (14.0-18.0); RED BLOOD CELL COUNT(AUTO) 2.11 MIL/UL (4.7-6.1)
[2019-01-21] MEDS: SEVELAMER CARBONATE 800 MG TABLET PO SCH ×3 (08:09→17:04)
[2019-01-21] MEDS: DRONABINOL 2.5 MG CAPSULE PO SCH (08:09)
[2019-01-21] MEDS: FOLIC ACID/VITAMIN B COMP W-C TABLET PO SCH (08:09)
[2019-01-21] MEDS: ISOSORBIDE MONONITRATE 60 MG TAB.SR.24H PO SCH (08:10)
[2019-01-21] MEDS: NIFEdipine XL 60 MG TABSR PO SCH ×2 (08:10→16:51)
[2019-01-21] MEDS: FAMOTIDINE 20 MG TABLET PO SCH (08:10)
[2019-01-21] MEDS: BENAZEPRIL HCL 20 MG TABLET PO SCH (08:10)
[2019-01-21] MEDS: ESCITALOPRAM OXALATE 10 MG TABLET PO SCH (08:10)
[2019-01-21] MEDS: SENNOSIDES 1 TABLET PO SCH (08:11)
[2019-01-21] MEDS: MIRTAZAPINE 15 MG TABLET PO SCH ×2 (08:11→16:51)
[2019-01-21] MEDS: MINOXIDIL 2.5 MG TABLET PO SCH (09:00)
--- NOTE | 2019-01-21 09:00 | NUR ---
Received pt. A/OX4, verbally responsive and able to make his needs known. On RA with SpO@ of 97%, no respiratory distress. RIJ 3lumen, patent and intact. Administered meds as ordered and tolerated well. Pt. schedule for dialysis today per Dr. Dion Ramon C/O generalized pain (7-8/10p.s) PRN dilaudid given and effective. Safety measures in place. Call light and all frequently used items within pt. reach.
[2019-01-21] MEDS ORDERED: DESMOPRESSIN INJ 20 MCG in IV NORMAL SALINE 50 ML IV ONE (09:30)
--- NOTE | 2019-01-21 10:00 | NUR ---
CLINICAL PHARMACY NOTE:VANCOMYCIN DOSING S To continue vancomycin dosing on 48 y/o male dialysis patient for PNA. O temp 98.6 BUN 59 Scr 8.5 (on HD) WBC 5.9 Vanco pre-HD level: 19.6 on 01/21 at 0600 ht 170 cm wt 67 kg Plan HD has been scheduled for today. since vanco pre-HD level is between 15-20 mcg/ml, will give vanco 500mg iVPB x1 today post HD (as per protocol). Plan to order next pre-HD level (not yet ordered) with next HD for further dosing. Will continue to monitor
[2019-01-21 12:07] LABS: EOSINOPHILS % (MANUAL) 5 % (0-8); LYMPHOCYTES % (MANUAL) 29 % (20-40); MONOCYTES % (MANUAL) 8 % (2-10); NEUTROPHILS % (MANUAL) 58 % (42-75)
--- NOTE | 2019-01-21 12:23 | NUR ---
0930: Dr. Ashley aware of CL H/H with order for 1 unit of PRBC. Type and screen done on 01/20/19. Consent signed by pt., verbalized clear understanding of procedure. Dialysis nurse at bedside, aware pt. will received transfusion with dialysis. Unable to administer desmopressin due to dialysis.
--- NOTE | 2019-01-21 12:26 | NUR ---
1226: Dialysis completed. 3L taken out. Pt. in stable condition. V/S 139/68, 98.8, 69, 18.
--- NOTE | 2019-01-21 14:21 | NUR ---
WOUND CARE CONSULT: PT PRESENTS WITH RT SHOULDER, RT ARM AND RT KNEE CLOSED INCISIONS, PRESENT ON ADMISSION. NO DRAINAGE NOTED, NO ERYTHEMA. ORTHO CONSULT TO BE CALLED BY PMD PER DRUM PLATER. PT REQUESTING TOENAILS TO BE TRIMMED. TOENAILS ARE LONG. DPM CONSULT REQUESTED FROM DR COVARRUBIAS. RECOMMENDATIONS MADE FOR SKIN PROTECTION. DISCUSSED WITH NURSING STAFF. WILL SEE PRN. SILVESTRE IN AGREEMENT WITH PLAN OF CARE. Addendum: 01/21/19 at 1426 by CON GOMES RN Amended: Links added.
[2019-01-21] MEDS ORDERED: VANCOMYCIN IV 500 MG in IV DEXTROSE 5% 100 ML IV ONE (15:00)
--- NOTE | 2019-01-21 16:00 | NUR ---
Seen and examined by Dr. Topete with order for RT. femur x-ray. Pt. aware and amenable.
--- NOTE | 2019-01-21 17:52 | NUR ---
EOS: No significant changed during this shift. Pt. A/Ox4 with no changes in mentation. Seen by PT/OT for eval, participated in upper body exercise with OT. RIJ 3x lumen patent and intact. Noted with mild x2 epistaxis, received Desmopressin today. Seen by wound nurse today for wound consult. No ASE from blood transfusion, tolerated well. NSR on tele. Safety measures in place. All frequently used items within pt. reach.
[2019-01-21] MEDS: CEFEPIME HCL 0.5 G in IV DEXTROSE 5% 50 ML IV SCH (21:15)
[2019-01-21] MEDS ORDERED: LORAZEPAM 1 MG TABLET PO ONE (22:45)
[2019-01-22 00:20] VITALS: BP 134/73
[2019-01-22] MEDS: HYDROMORPHONE 1 MG/1 ML DISP.SYRIN IV PRN ×5 (02:59→21:46)
[2019-01-22 04:22] VITALS: BP 131/37
--- NOTE | 2019-01-22 05:23 | NUR ---
patient received lying in bed. no signs of acute distress noted on my shift. safety and comfort measures provided at all times. central line triple lumen patent and intact. Ativan 1mg order obtained from Dr. Galicia for patient yelling and screaming that he is having a panic attack, v/s stable at this time. administered and tolerated well. Dilaudid administered x2 on my shift for c/o of pain. mild epistaxis noted which is ongoing issue. will continue plan of care and endorse to morning nurse accordingly.
[2019-01-22] MEDS: LABETALOL HCL 200 MG TABLET PO SCH ×4 (06:00→21:16)
--- NOTE | 2019-01-22 06:01 | NUR ---
patient refused bp meds this morning despite education. will continue to monitor. labetalol returned to [facility]is.
--- NOTE | 2019-01-22 07:15 | NUR ---
Received awake and verbally responsive. No Signs of distress noted. No SOB. Pain Medication given as ordered. Right IJ central line intact and patent. kept the call light within easy reach. Will continue to monitor.
[2019-01-22] MEDS: BUDESONIDE 0.5 MG/2 ML NEBU IH SCH ×2 (07:30→21:50)
[2019-01-22] MEDS: SEVELAMER CARBONATE 800 MG TABLET PO SCH ×3 (07:42→17:43)
[2019-01-22] MEDS: ESCITALOPRAM OXALATE 10 MG TABLET PO SCH (08:58)
[2019-01-22] MEDS: FOLIC ACID/VITAMIN B COMP W-C TABLET PO SCH (08:58)
[2019-01-22] MEDS: DRONABINOL 2.5 MG CAPSULE PO SCH (08:58)
[2019-01-22] MEDS: FAMOTIDINE 20 MG TABLET PO SCH (08:59)
[2019-01-22] MEDS: MIRTAZAPINE 15 MG TABLET PO SCH ×2 (09:00→17:43)
--- NOTE | 2019-01-22 09:53 | NUR ---
Called Pk ELIZALDE from Dialysis, He said patient will not have Dialysis today.
[2019-01-22] MEDS: MINOXIDIL 2.5 MG TABLET PO SCH (10:03)
[2019-01-22] MEDS: BENAZEPRIL HCL 20 MG TABLET PO SCH (10:03)
[2019-01-22] MEDS: NIFEdipine XL 60 MG TABSR PO SCH ×2 (10:04→17:43)
[2019-01-22] MEDS: ISOSORBIDE MONONITRATE 60 MG TAB.SR.24H PO SCH (10:04)
[2019-01-22 11:05] VITALS: BP 160/40
--- NOTE | 2019-01-22 12:12 | NUR ---
Patient refused Sevelamer at 12NN, Explained Risk and benefits, still refused.
--- NOTE | 2019-01-22 13:16 | NUR ---
CLINICAL PHARMACY NOTE:VANCOMYCIN DOSING S To continue vancomycin dosing on 48 y/o male dialysis patient for PNA. O temp 99.2 BUN 59 (01/21) Scr 8.5 (on HD) (01/21) WBC 5.9 (01/21) Vanco pre-HD level: 19.6 on 01/21 at 0600 ht 170 cm wt 67 kg Plan No HD scheduled for today,therefore no dose for today per HD protocol. Last vanco 500mg x1 given post-HD yesterday. Plan to order next pre-HD level (not yet ordered) with next HD for further dosing. Will continue to monitor
--- NOTE | 2019-01-22 14:16 | NUR ---
Patient refused BP Meds (labetalol Hydrochloride 400mg) at 2PM, explained Risk and benefits still refused. Patient with Blood Pressure of 156-62 P 87. Will continue to monitor.
--- NOTE | 2019-01-22 15:09 | NUR ---
Relayed Xray of Right femur to Dr. Topete with No New Order at this time.
--- NOTE | 2019-01-22 15:45 | NUR ---
Stool for Cdiff was sent to labs.
[2019-01-22 15:54] VITALS: BP 156/62
--- NOTE | 2019-01-22 18:07 | NUR ---
Patient in bed, sleeping intermittently. No signs of distress. Pain Medication Dilaudid 0.5mg IV 3xgiven for this shift. patient with Episode of Loose BM x 2 today, Stool was sent to labs to Check for Cdiff Stool. Awaiting for result. Patient with Episode of Nose bleeding x2 because patient is picking his Nose. Patient with Order of Dialysis tomorrow. All needs attended and met. Central line on Right IJ with 3 Lumen intact and patent. kept clean and comfortable. Will Endorse to Oncoming Nurse.
[2019-01-22 20:41] VITALS: BP 172/75
--- NOTE | 2019-01-22 21:00 | NUR ---
patient had 1 episode of watery black stool, md ahuja notified, no new orders per md no need because black stool is expected after profusely bleeding, vs stable
[2019-01-22] MEDS: CEFEPIME HCL 0.5 G in IV DEXTROSE 5% 50 ML IV SCH (21:11)
[2019-01-22] MEDS ORDERED: hydrALAZINE HCL 25 MG TABLET PO PRN (21:15)
[2019-01-22 21:30] VITALS: BP 158/56
[2019-01-23] VITALS (27 sets, daily range): BP systolic 118–180; BP diastolic 35–80
[2019-01-23] MEDS: HYDROMORPHONE 1 MG/1 ML DISP.SYRIN IV PRN ×6 (01:48→22:34)
[2019-01-23] MEDS: LABETALOL HCL 200 MG TABLET PO SCH ×4 (05:48→22:29)
--- NOTE | 2019-01-23 06:40 | NUR ---
Critical lab value reported by lab hgb3.9 hct 11.3, cesar Byers. waiting call back. VS stable. Endorsed to AM shift nurse.
[2019-01-23 06:44] LABS: WHITE BLOOD COUNT (AUTO) 4.5 K/UL (4.0-11.2)
[2019-01-23 06:45] LABS: HEMOGLOBIN 3.9 G/DL (14.0-18.0); RED BLOOD CELL COUNT(AUTO) 1.26 MIL/UL (4.7-6.1)
[2019-01-23 06:46] LABS: HEMATOCRIT 11.3 % (40-50); MEAN CORPUSCULAR HEMOGLOBIN 30.8 UUG (27.0-31.0); MEAN CORPUSCULAR HGB CONC 34 g/dL (32.0-37.0); MEAN CORPUSCULAR VOLUME 90.3 FL (82.0-92.0)
[2019-01-23 06:47] LABS: BASOPHILS % (AUTO) 0.6 % (0.0-2.0); CARBON DIOXIDE 27 mmol/L (21-32); CHLORIDE 102 mmol/L (98-107); EOSINOPHILS # (AUTO) 0.1 K/uL (0.0-0.7); EOSINOPHILS % (AUTO) 2.5 % (0.0-7.0); LYMPHOCYTES # (AUTO) 1.4 K/UL (0.8-4.8); LYMPHOCYTES % (AUTO) 31.9 % (20.5-51.5); MONOCYTES # (AUTO) 0.6 K/UL (0.1-1.30); MONOCYTES % (AUTO) 13.6 % (0.0-11.0); NEUTROPHILS # (AUTO) 2.3 K/UL (1.8-8.9); NEUTROPHILS % (AUTO) 51.4 % (38.5-71.5); PLATELET COUNT (AUTO) 140 K/UL (150-450); POTASSIUM 4.9 mmol/L (3.5-5.1)
[2019-01-23 06:48] LABS: BILIRUBIN,TOTAL 0.9 mg/dL (0.1-1.0); GLUCOSE 94 mg/dL (74-106); PHOSPHOROUS 2.6 mg/dL (2.5-4.9)
[2019-01-23 06:49] LABS: ALANINE AMINOTRANSFERASE < 6 U/L (16-63); ALKALINE PHOSPHATASE 49 U/L (50-136); ASPARTATE AMINOTRANSFERASE 14 U/L (15-37); MAGNESIUM 2.3 mg/dL (1.8-2.4); TOTAL PROTEIN, SERUM 9.1 g/dL (6.4-8.2)
[2019-01-23 06:50] LABS: CREATININE 8.5 mg/dL (0.6-1.3); UREA NITROGEN, BLOOD 124 mg/dL (7-20)
--- NOTE | 2019-01-23 07:16 | NUR ---
Notified MD Ashley of critical lab values. endorsed to am shift nurse.
--- NOTE | 2019-01-23 07:30 | NUR ---
Dr ahuja aware of low h/h ok to transfer to ICU. Media Relations Associate aware of transfer orders. Awaiting for ICU nurse to be available. Pt is in no acute distress. Pt comfortable in bed. Right arm swollen +3 noted. Right IJ triple lumen intact, patent, and flushing. Notified HD dialysis of emergency dialysis in order to transfuse pt. Call light is within reach.
[2019-01-23] MEDS: BUDESONIDE 0.5 MG/2 ML NEBU IH SCH ×2 (07:52→21:25)
[2019-01-23] MEDS: SEVELAMER CARBONATE 800 MG TABLET PO SCH ×3 (08:00→17:55)
--- NOTE | 2019-01-23 08:22 | NUR ---
CLINICAL PHARMACY NOTE:VANCOMYCIN DOSING S To continue vancomycin dosing on 48 y/o male dialysis patient for PNA. O temp 98.2 BUN 124 Scr 8.5 (on HD) WBC 4.5 Vanco pre-HD level: 19.6 on 01/21 at 0600 Vanco pre-HD level: 18.9 on 01/23 at 0600 ht 170 cm wt 67 kg Plan HD has been scheduled for today. Since vanco pre-HD level is between 15-20 mcg/ml, will give vanco 500mg IVPB x1 today post HD per HD protocol. Plan to order next pre-HD level (not yet ordered) with next HD for further dosing. Will continue to monitor
[2019-01-23] MEDS: FAMOTIDINE 20 MG TABLET PO SCH ×2 (09:00→12:51)
[2019-01-23] MEDS: MIRTAZAPINE 15 MG TABLET PO SCH ×3 (09:00→17:57)
--- NOTE | 2019-01-23 09:07 | NUR ---
At this time pt. brought in to room 021-2 ICU status for reported active GI bleeding. Pt. AAOX4. vitals stable see Vitals signs flow sheet. On room air with saturation above 95%. pt. placed on monitor and on SR. in the 90's
--- NOTE | 2019-01-23 09:20 | NUR ---
Pt transferred to ICU report given to ICU nurse.
--- NOTE | 2019-01-23 09:50 | NUR ---
HD R.N. in the unit to dialyse patient.
--- NOTE | 2019-01-23 10:39 | NUR ---
Patient received a total of two units of prbc's with hemodialysis , both units administered by RAHUL Darling. Patient tolerated transfusion well no signs or reactions to transfusion.
--- NOTE | 2019-01-23 10:56 | NUR ---
Patient with and episode or oral bleeding a large blood cloth removed from pt's mouth that started to block his breathing. Once blood clot removed patient was able to breath well saturation maintained above 92%. hemodynamically stable, and dialysis in progress.
--- NOTE | 2019-01-23 10:58 | NUR ---
An episode or epistaxis at this time, pressure applied and bleeding stopped.
--- NOTE | 2019-01-23 12:00 | NUR ---
Nephrology services, Dr. Fern Arroyo in the unit to see and examine patient, full report given.
[2019-01-23] MEDS: ESCITALOPRAM OXALATE 10 MG TABLET PO SCH (12:51)
[2019-01-23] MEDS: DRONABINOL 2.5 MG CAPSULE PO SCH (12:53)
[2019-01-23] MEDS: FOLIC ACID/VITAMIN B COMP W-C TABLET PO SCH (12:53)
[2019-01-23] MEDS: NIFEdipine XL 60 MG TABSR PO SCH ×2 (12:54→17:57)
[2019-01-23] MEDS: BENAZEPRIL HCL 20 MG TABLET PO SCH (12:55)
[2019-01-23] MEDS: ISOSORBIDE MONONITRATE 60 MG TAB.SR.24H PO SCH (12:55)
[2019-01-23] MEDS: MINOXIDIL 2.5 MG TABLET PO SCH (12:56)
[2019-01-23 13:49] LABS: HEMATOCRIT 15.5 % (40-50); HEMOGLOBIN 5.3 G/DL (14.0-18.0)
[2019-01-23] MEDS ORDERED: EPOETIN ALFA 10,000 UNITS/ML VIAL SQ ONE (14:00)
[2019-01-23] MEDS ORDERED: VANCOMYCIN IV 500 MG in IV DEXTROSE 5% 100 ML IV ONE (14:00)
--- NOTE | 2019-01-23 14:00 | NUR ---
at this time attending physician notified of H&H results orders to transfuse 2 more units received.
--- NOTE | 2019-01-23 14:02 | NUR ---
Attending notified of latest H&H results post 2 units of PRBC's with HD. Awaiting call back.
--- NOTE | 2019-01-23 15:30 | NUR ---
Attending physician Dr. Erik Scruggs. in the unit to see and examine patient, report given orders to continue current care plan received.
[2019-01-23] MEDS: CEFEPIME HCL 0.5 G in IV DEXTROSE 5% 50 ML IV SCH (22:29)
[2019-01-23] MEDS: IV NORMAL SALINE 250 ML IV PRN (22:35)
[2019-01-23] MEDS: ONDANSETRON 4 MG/2 ML VIAL IV PRN (22:52)
[2019-01-24] VITALS (26 sets, daily range): BP systolic 129–181; BP diastolic 46–81
[2019-01-24] MEDS: HYDROMORPHONE 1 MG/1 ML DISP.SYRIN IV PRN ×5 (02:51→20:51)
[2019-01-24 05:10] LABS: RED BLOOD CELL COUNT(AUTO) 2.01 MIL/UL (4.7-6.1)
[2019-01-24 05:11] LABS: HEMATOCRIT 17.6 % (40-50); MEAN CORPUSCULAR HEMOGLOBIN 29.9 UUG (27.0-31.0); MEAN CORPUSCULAR HGB CONC 34 g/dL (32.0-37.0); MEAN CORPUSCULAR VOLUME 87.5 FL (82.0-92.0); NEUTROPHILS % (AUTO) 59.3 % (38.5-71.5); PLATELET COUNT (AUTO) 125 K/UL (150-450)
[2019-01-24 05:12] LABS: BASOPHILS % (AUTO) 0.7 % (0.0-2.0); EOSINOPHILS # (AUTO) 0.1 K/uL (0.0-0.7); EOSINOPHILS % (AUTO) 2.9 % (0.0-7.0); LYMPHOCYTES # (AUTO) 1.2 K/UL (0.8-4.8); MONOCYTES # (AUTO) 0.7 K/UL (0.1-1.30); MONOCYTES % (AUTO) 13.1 % (0.0-11.0)
[2019-01-24 05:26] LABS: CARBON DIOXIDE 28 mmol/L (21-32); CHLORIDE 105 mmol/L (98-107); GLUCOSE 90 mg/dL (74-106); POTASSIUM 4.2 mmol/L (3.5-5.1); UREA NITROGEN, BLOOD 89 mg/dL (7-20)
[2019-01-24 05:27] LABS: ALANINE AMINOTRANSFERASE 9 U/L (16-63); ALKALINE PHOSPHATASE < 10 U/L (50-136); ASPARTATE AMINOTRANSFERASE 19 U/L (15-37); CREATININE 6.3 mg/dL (0.6-1.3); PHOSPHOROUS 2.5 mg/dL (2.5-4.9); TOTAL PROTEIN, SERUM 8.9 g/dL (6.4-8.2)
[2019-01-24 05:28] LABS: BILIRUBIN,TOTAL 0.9 mg/dL (0.1-1.0)
[2019-01-24] MEDS: LABETALOL HCL 200 MG TABLET PO SCH ×3 (06:21→22:00)
[2019-01-24] MEDS: BUDESONIDE 0.5 MG/2 ML NEBU IH SCH ×2 (07:39→19:23)
--- NOTE | 2019-01-24 08:00 | NUR ---
Patient awake and alert remains with epistaxis episodes, especially when repositioned.
[2019-01-24] MEDS: SEVELAMER CARBONATE 800 MG TABLET PO SCH ×3 (08:15→17:17)
[2019-01-24] MEDS: FAMOTIDINE 20 MG TABLET PO SCH (08:16)
[2019-01-24] MEDS: MIRTAZAPINE 15 MG TABLET PO SCH ×2 (08:16→17:16)
[2019-01-24] MEDS: ESCITALOPRAM OXALATE 10 MG TABLET PO SCH (08:16)
[2019-01-24] MEDS: SENNOSIDES 1 TABLET PO SCH (08:16)
[2019-01-24] MEDS: ISOSORBIDE MONONITRATE 60 MG TAB.SR.24H PO SCH (08:16)
[2019-01-24] MEDS: MINOXIDIL 2.5 MG TABLET PO SCH (08:16)
[2019-01-24] MEDS: BENAZEPRIL HCL 20 MG TABLET PO SCH (08:17)
[2019-01-24] MEDS: NIFEdipine XL 60 MG TABSR PO SCH ×2 (08:17→17:16)
[2019-01-24] MEDS: DRONABINOL 2.5 MG CAPSULE PO SCH (08:17)
[2019-01-24] MEDS: FOLIC ACID/VITAMIN B COMP W-C TABLET PO SCH (08:17)
[2019-01-24] MEDS: PROTEIN SUPPLEMENT (PROSTAT) 30 ML LIQUID PO SCH (09:45)
--- NOTE | 2019-01-24 13:29 | NUR ---
blood transfusion completed at this time a total of 1.5L liter excess fluid removed as reported. Patient with c/of feeling short of breath during HD for which he was placed on 2 liter nasal canula with saturation increased to 96% from 93%.
--- NOTE | 2019-01-24 13:39 | NUR ---
Patient with an episode of "chocking at this time assisted and pt. was able to expel a massive blood clot that was blocking his throat as stated by him" Attending Dr. Valencia notified.
--- NOTE | 2019-01-24 14:10 | NUR ---
ER. Physician Dr. Skaggs in the unit to examine patient and upon his examination pt's right nostril packed. plastic cord extension secure with paper tape as ordered.
[2019-01-24] MEDS ORDERED: LIDOCAINE VISCUS 2% 15 ML UDC MM ONE (14:15)
--- NOTE | 2019-01-24 14:30 | NUR ---
Bleeding through the sides of nose packing noted; E.R. physician Dr. Skaggs called to be notified, as stated nose packed already and orders to continue applying pressure received and implemented. Attending physician called to be notified message left.
[2019-01-24] MEDS: CLONIDINE HCL 0.1 MG TABLET PO PRN (14:57)
[2019-01-24 15:06] LABS: HEMATOCRIT 23.5 % (36.7-47.1); HEMOGLOBIN 8.2 g/dL (12.5-16.3)
--- NOTE | 2019-01-24 16:00 | NUR ---
Attending physician Dr. Valencia in to see and examine patient, full report given orders to down grade -patient to LUCIA to administration convenience if bleeding stops. Nursing supervisor feed house notified.
--- NOTE | 2019-01-24 20:00 | NUR ---
Received pt HOB elevated, AxO x4. Pt able to follow simple commands, gag and cough reflex present. Pt on RA, O2 sats up to 98%. No acute distress noted. Packed dressing in right nare intact and in place, minimal bleeding noted. Pt denies pain, dizziness, SOB or discomfort at this time. Right IJ PICC line dressing changed. Left arm AV shunt noted. Pt turned and repositioned, heels offloaded. Safety precautions maintained. Call light within reach. Will continue to monitor closely. Addendum: 01/24/19 at 2314 by KAYLA SMITH RN Amended: Links added.
--- NOTE | 2019-01-24 20:47 | NUR ---
Paged on-call DR HENDERSON, regarding pt condition. made aware that pt was found with packing dressing out from right nare. Pt states he "was uncomfortable" with the dressing. No new orders received. Will call if pt bleeding profusely from right nare. Will continue to monitor closely. Addendum: 01/24/19 at 2317 by KAYLA SMITH RN Blood clot noted after pt removed nasal dressing, no signs of bleeding.
[2019-01-24 20:48] LABS: *OCCULT BLOOD STOOL POSITIVE (NEGATIVE)
--- NOTE | 2019-01-24 21:15 | NUR ---
Call from nursing supervisor cloth winding, stated that she talked to DR COLON regarding pt to downgrade to LUCIA. New order to transfer pt to LUCIA status. Will proceed with transfer. Pt VSS, afebrile. Will continue plan of care.
[2019-01-24] MEDS: IV NORMAL SALINE 250 ML IV PRN (21:28)
[2019-01-24] MEDS: CEFEPIME HCL 0.5 G in IV DEXTROSE 5% 50 ML IV SCH (21:28)
[2019-01-25] MEDS: HYDROMORPHONE 1 MG/1 ML DISP.SYRIN IV PRN ×4 (00:54→21:04)
--- NOTE | 2019-01-25 01:02 | NUR ---
snacks offered, , refused , no bowel movement at this time
[2019-01-25] MEDS: ONDANSETRON 4 MG/2 ML VIAL IV PRN ×2 (03:37→21:32)
[2019-01-25 04:00] VITALS: BP 109/37
[2019-01-25 05:50] VITALS: BP 113/39
[2019-01-25] MEDS: LABETALOL HCL 200 MG TABLET PO SCH ×3 (06:00→21:03)
--- NOTE | 2019-01-25 06:00 | NUR ---
Pt remains noncompliant with BP meds throughout the shift but only requests pain meds. Discussed risks and benefits with meds, pt still refused. Pt remains AxO x4, no acute distress noted. Pt kept clean and dry, repositioned as requested. Safety precautions maintained. Call light within reach, will continue with plan of care.
[2019-01-25 06:14] LABS: CREATININE 5.1 mg/dL (0.6-1.3); MAGNESIUM 1.9 mg/dL (1.8-2.4); PHOSPHOROUS 2.7 mg/dL (2.5-4.9); POTASSIUM 3.8 mmol/L (3.5-5.1)
[2019-01-25 06:33] LABS: EOSINOPHILS % (AUTO) 2.8 % (0.0-7.0); MEAN CORPUSCULAR VOLUME 89.3 fL (73.0-96.2); WHITE BLOOD COUNT (AUTO) 5.3 K/uL (3.6-10.2)
[2019-01-25 06:35] LABS: BASOPHILS % (AUTO) 0.4 % (0.0-2.0); EOSINOPHILS # (AUTO) 0.2 K/uL (0.0-0.7); LYMPHOCYTES # (AUTO) 1.1 K/uL (20.0-40.0); LYMPHOCYTES % (AUTO) 21.6 % (20.5-51.5); MEAN CORPUSCULAR HEMOGLOBIN 30.9 uug (23.8-33.4); MEAN CORPUSCULAR HGB CONC 35 g/dL (32.5-36.3); MONOCYTES # (AUTO) 0.6 K/uL (2.0-10.0); MONOCYTES % (AUTO) 11.1 % (0.0-11.0); NEUTROPHILS # (AUTO) 3.4 K/uL (1.8-8.9); NEUTROPHILS % (AUTO) 64.1 % (38.5-71.5); PLATELET COUNT (AUTO) 123 K/uL (152-348)
[2019-01-25 06:42] LABS: HEMATOCRIT 20.5 % (36.7-47.1); HEMOGLOBIN 7.1 g/dL (12.5-16.3)
[2019-01-25] MEDS: BUDESONIDE 0.5 MG/2 ML NEBU IH SCH ×2 (07:09→19:07)
[2019-01-25 07:44] VITALS: BP 153/52
[2019-01-25] MEDS: PROTEIN SUPPLEMENT (PROSTAT) 30 ML LIQUID PO SCH (08:00)
[2019-01-25] MEDS: MINOXIDIL 2.5 MG TABLET PO SCH (08:43)
[2019-01-25] MEDS: SEVELAMER CARBONATE 800 MG TABLET PO SCH ×3 (08:43→16:26)
[2019-01-25] MEDS: ISOSORBIDE MONONITRATE 60 MG TAB.SR.24H PO SCH (08:43)
[2019-01-25] MEDS: BENAZEPRIL HCL 20 MG TABLET PO SCH (08:43)
[2019-01-25] MEDS: FOLIC ACID/VITAMIN B COMP W-C TABLET PO SCH (08:44)
[2019-01-25] MEDS: FAMOTIDINE 20 MG TABLET PO SCH (08:44)
[2019-01-25] MEDS: NIFEdipine XL 60 MG TABSR PO SCH ×2 (08:44→16:26)
[2019-01-25] MEDS: ESCITALOPRAM OXALATE 10 MG TABLET PO SCH (08:44)
[2019-01-25] MEDS: DRONABINOL 2.5 MG CAPSULE PO SCH (08:44)
[2019-01-25] MEDS: MIRTAZAPINE 15 MG TABLET PO SCH ×2 (08:45→16:26)
--- NOTE | 2019-01-25 10:48 | NUR ---
OPTIMIZATION ANALYST Jasmin Roth here to see pt. Full report given. No new orders received. Addendum: 01/25/19 at 1052 by NAOMIE BURKS RN New orders received
[2019-01-25 11:42] VITALS: BP 132/78
--- NOTE | 2019-01-25 13:34 | NUR ---
superintendent warehouse here to see pt for dialysis treatment.
[2019-01-25 15:31] LABS: HEMOGLOBIN 7.6 g/dL (12.5-16.3)
[2019-01-25 15:42] VITALS: BP 146/72
--- NOTE | 2019-01-25 16:54 | NUR ---
Spoke with MARCOS Castellanos on the telephone and reported pt's latest H/H results. [facility] okay to discharge pt today.
--- NOTE | 2019-01-25 17:27 | NUR ---
Spoke with Kristen on the telephone and made aware of pt's discharge. Per [facility] facility, pt unable to be discharged back to facility today if H/H below 8. MARCOS Castellanos made aware and pt to be downgraded to telemetry status for now. Discharge on hold.
--- NOTE | 2019-01-25 17:55 | NUR ---
Spoke with RICHMOND Eubanks and MARCOS Castellanos on the telephone. Pt to be discharged tonight. Full telephone SBAR report given to [facility]. Called [facility]": for discharge transportation. Confirmation #[id number]. Awaiting return call from transportation [employer] for ETA.
[2019-01-25] MEDS ORDERED: MINO2.5T PO (18:15)
[2019-01-25] MEDS ORDERED: PROT30LI PO (18:15)
[2019-01-25] MEDS ORDERED: HYDR-894 PO (18:15)
[2019-01-25] MEDS ORDERED: CEFE1PIG3 IV (18:15)
--- NOTE | 2019-01-25 18:32 | NUR ---
Spoke with TONIO Alfaro from [facility] Still awaiting return call ETA from [facility]". Will endorse to service writer advisor RN to call [facility] for ETA time.
--- NOTE | 2019-01-25 19:15 | NUR ---
Received report from AM nurse regarding patient's discharge plans. Pt has an active order for DC and LAWN CARE TECHNICIAN Karthik Roth finished the DC summary. [facility], and a report has been given by AM nurse, as endorsed. Transportation still does not have a car ready for patient, spoke with Cha. Will continue to follow up. Pt is alert and verbally responsive and is in agreement with discharge plans. Informed him that paperwork will be prepared for him. Not in any acute distress. VS stable. Remains on sinus rhythm on Tele.
[2019-01-25 20:03] VITALS: BP 130/60
--- NOTE | 2019-01-25 21:30 | NUR ---
1999: Received a call from Angelina ELIZALDE from [facility] RE: They can't accept the patient because the hemoglobin is too low at 7.6 according to her hammer shop supervisor. Asked what the level of Hgb accepted in the facility, Angelina ELIZALDE responded : "I dont know, I think 12". Informed her that we have to notify the MD first because they want the patient to be DC'ed because of stable condition. 2004: Paged Dr. Ananth Zhou DNP. 2009: Received a call back, stated that under hospital protocols, no blood can be transfused since Hgb is above 7. Pt is stable enough to be DC'ed and does not need hospitalization. DNP wants to go ahead and continue with DC. 2014: Tried contacting [facility] 3x but phone just rings, with no answer. Will try again. 2029: [facility] contacted 2x, phone rings, with no answer. Will try again. Due medications given and tolerated well. Patient requested bandage changes for AV shunt, done. Informed him of his DC situation. Pt is okay at this time. 2044: [facility] contacted again 3x, phone rings with no answer of VM. 2129: [facility] contacted several times within the last 30 minutes, different phones used, but no answer. Reported situation to Boat Canvas Maker And Installer.
[2019-01-25] MEDS ORDERED: CEFEPIME HCL 1 G VIAL ONE (22:20)
--- NOTE | 2019-01-25 22:30 | NUR ---
Requested IV ATB for patient from Flooring Machine Operator. Received a bottle of Maxepime 1G, wasted 0.5 g . Maxepime 0.5g mixed with IV fluids as ordered and administered. Received call from the lab that blood is ready. Informed her that will citrus picker after administration of IV ATB,
--- NOTE | 2019-01-25 22:30 | NUR ---
Received order from RN ramp and cargo supervisor that Dr. Dion Valencia had a conference with Dr. Ananth Zhou. Discharge is on hold. Charge Nurse also received order to administer 1 unit of PRBC.
[2019-01-25] MEDS: CEFEPIME HCL 0.5 G in IV DEXTROSE 5% 50 ML IV SCH (22:36)
[2019-01-26] VITALS (12 sets, daily range): BP systolic 135–162; BP diastolic 60–85
[2019-01-26] MEDS: SEVELAMER CARBONATE 800 MG TABLET PO SCH ×4 (01:00→17:03)
[2019-01-26] MEDS: HYDROMORPHONE 1 MG/1 ML DISP.SYRIN IV PRN ×4 (01:05→16:30)
--- NOTE | 2019-01-26 02:15 | NUR ---
Blood transfusion started, as documented on transfusion page. No adverse reactions noted.
--- NOTE | 2019-01-26 05:40 | NUR ---
BT finished with no adverse reactions noted. VS taken and recorded. Will continue to monitor and endorse accordingly.
[2019-01-26] MEDS: LABETALOL HCL 200 MG TABLET PO SCH ×2 (06:11→14:00)
[2019-01-26] MEDS: BUDESONIDE 0.5 MG/2 ML NEBU IH SCH (07:30)
[2019-01-26 07:51] LABS: BASOPHILS % (AUTO) 0.3 % (0.0-2.0); EOSINOPHILS # (AUTO) 0.2 K/uL (0.0-0.7); EOSINOPHILS % (AUTO) 3.9 % (0.0-7.0); HEMATOCRIT 22.6 % (36.7-47.1); HEMOGLOBIN 7.7 g/dL (12.5-16.3); LYMPHOCYTES # (AUTO) 1.1 K/uL (20.0-40.0); LYMPHOCYTES % (AUTO) 22.4 % (20.5-51.5); MEAN CORPUSCULAR HEMOGLOBIN 30.4 uug (23.8-33.4); MEAN CORPUSCULAR HGB CONC 34 g/dL (32.5-36.3); MEAN CORPUSCULAR VOLUME 89.3 fL (73.0-96.2); MONOCYTES # (AUTO) 0.6 K/uL (2.0-10.0); MONOCYTES % (AUTO) 11.4 % (0.0-11.0); NEUTROPHILS # (AUTO) 3.2 K/uL (1.8-8.9); PLATELET COUNT (AUTO) 134 K/uL (152-348); RED BLOOD CELL COUNT(AUTO) 2.53 MIL/uL (4.06-5.63); WHITE BLOOD COUNT (AUTO) 5.1 K/uL (3.6-10.2)
[2019-01-26] MEDS: PROTEIN SUPPLEMENT (PROSTAT) 30 ML LIQUID PO SCH ×2 (08:00→09:22)
--- NOTE | 2019-01-26 08:00 | NUR ---
Received patient awake in bed. AAOx4. In no acute distress. R IJ PICC intact and patent. Safety measures implemented. Will continue to monitor.
[2019-01-26] MEDS: SENNOSIDES 1 TABLET PO SCH (09:00)
[2019-01-26] MEDS: FOLIC ACID/VITAMIN B COMP W-C TABLET PO SCH (09:11)
[2019-01-26] MEDS: BENAZEPRIL HCL 20 MG TABLET PO SCH (09:12)
[2019-01-26] MEDS: ONDANSETRON 4 MG/2 ML VIAL IV PRN (09:16)
--- NOTE | 2019-01-26 09:16 | NUR ---
Patient verbalized that PO Zofran is not effective and does not work for him. IV Zofran PRN administered.
[2019-01-26] MEDS: NIFEdipine XL 60 MG TABSR PO SCH ×2 (09:17→17:03)
[2019-01-26] MEDS: ESCITALOPRAM OXALATE 10 MG TABLET PO SCH (09:20)
[2019-01-26] MEDS: MINOXIDIL 2.5 MG TABLET PO SCH (09:20)
[2019-01-26] MEDS: DRONABINOL 2.5 MG CAPSULE PO SCH (09:20)
[2019-01-26] MEDS: FAMOTIDINE 20 MG TABLET PO SCH (09:20)
[2019-01-26] MEDS: ISOSORBIDE MONONITRATE 60 MG TAB.SR.24H PO SCH (09:21)
[2019-01-26] MEDS: MIRTAZAPINE 15 MG TABLET PO SCH ×2 (09:21→17:03)
--- NOTE | 2019-01-26 12:30 | NUR ---
Patient did not receive 1200 dose of Renvela. Patient to start dialysis.
--- NOTE | 2019-01-26 14:00 | NUR ---
Patient receiving dialysis at this time. 1400 Labetalol not administered.
--- NOTE | 2019-01-26 15:48 | NUR ---
Received report from TONIO Springer, will continue to carry out plan of care. Plan for discharge today.
--- NOTE | 2019-01-26 17:06 | NUR ---
Melvi telephonic case manager made aware of [facility] not being able to pharmacy picking tech patient, work in progress to schedule pharmacy picking tech. Addendum: 01/26/19 at 1758 by KAYLA DE DIOS RN [facility]. Discharge completed by Racheal ELIZALDE.
== END 2019-01-26 18:00 | DRG 137 ==
LOC: ER 00:47 → TELE3 03:30 → MEDSURG3 01-22 15:30 → TELE3 01-23 07:10 → CCU 01-23 09:14 → TELE-TD3 01-24 21:50 → TELE3 01-25 17:30
PROVIDERS: ADMIT Family Medicine; ATTEND Internal Medicine
PROC: 5A1D70Z Performance of Urinary Filtration, Intermittent, Less than 6 Hours Per Day (ICD-10-PCS; principal; 2019-01-20)
PROC: B548ZZA Ultrasonography of Superior Vena Cava, Guidance (ICD-10-PCS; 2019-01-21)
PROC: 30233N1 Transfusion of Nonautologous Red Blood Cells into Peripheral Vein, Percutaneous Approach (ICD-10-PCS; 2019-01-21)
PROC: 02HV33Z Insertion of Infusion Device into Superior Vena Cava, Percutaneous Approach (ICD-10-PCS; 2019-01-21)
PROC: 0HBRXZZ Excision of Toe Nail, External Approach (ICD-10-PCS; 2019-01-24)
PROC: 2Y41X5Z Packing of Nasal Region using Packing Material (ICD-10-PCS; 2019-01-24)
DX: J69.8 Pneumonitis due to inhalation of other solids and liquids (principal); J96.91 Respiratory failure, unspecified with hypoxia; I13.2 Hypertensive heart and chronic kidney disease with heart failure and with stage 5 chronic kidney disease, or end stage renal disease; E43 Unspecified severe protein-calorie malnutrition; C90.00 Multiple myeloma not having achieved remission; K86.2 Cyst of pancreas; D68.59 Other primary thrombophilia; N18.6 End stage renal disease; N25.81 Secondary hyperparathyroidism of renal origin; D62 Acute posthemorrhagic anemia; E87.1 Hypo-osmolality and hyponatremia; E87.5 Hyperkalemia; Z99.2 Dependence on renal dialysis; R04.0 Epistaxis; G89.4 Chronic pain syndrome; I50.32 Chronic diastolic (congestive) heart failure; I25.2 Old myocardial infarction; D63.1 Anemia in chronic kidney disease; Z68.22 Body mass index [BMI] 22.0-22.9, adult; F32.9 Major depressive disorder, single episode, unspecified; F11.20 Opioid dependence, uncomplicated; Z74.09 Other reduced mobility; F41.9 Anxiety disorder, unspecified; B35.1 Tinea unguium; R26.2 Difficulty in walking, not elsewhere classified; I25.10 Atherosclerotic heart disease of native coronary artery without angina pectoris; Z86.718 Personal history of other venous thrombosis and embolism; Z87.311 Personal history of (healed) other pathological fracture; K21.9 Gastro-esophageal reflux disease without esophagitis; R19.7 Diarrhea, unspecified; K29.70 Gastritis, unspecified, without bleeding; Z79.02 Long term (current) use of antithrombotics/antiplatelets; Z79.899 Other long term (current) drug therapy; F12.90 Cannabis use, unspecified, uncomplicated; M85.80 Other specified disorders of bone density and structure, unspecified site; Z79.51 Long term (current) use of inhaled steroids
CPT/HCPCS: 36415; 36600; 70030-TC; 71045; 73551; 83605; 83735; 84100; 85018; 85025; 85730; 86301; 86625; 86706; 86850; 86900; 86901; 86920; 87040; 87046; 87340; 89055; 90937; 93005; 94640; 94664; A4663; G0378; J0692; J0885; J1170; J1644; J1815; J1940; J1956; J2185; J2405; J2597; J3370; J3490; J3590; J7040; J7050; J7060; P9016-BL; P9021; Q0167

== ENCOUNTER 2019-02-17 20:21 | Emergency (ER) | payer OTHER ==
[~2019-02-17] VITALS: Ht 170.2 cm; Wt 60.8 kg
[~2019-02-17 20:21] MED LIST changes: +CEFE1PIG3 IV; +HYDR-894 PO; +MINO2.5T PO; +PROT30LI PO
[2019-02-17] MEDS ORDERED: HYDROMORPHONE HCL 2 MG TABLET ONE (20:58)
[2019-02-17] MEDS ORDERED: LIDOCAINE 2% (UROJET) 10 ML JELLY MM ONE (20:58)
[2019-02-17] MEDS: HYDROMORPHONE HCL 2 MG TABLET PO ONE (21:08)
[2019-02-17] MEDS: LIDOCAINE 2% (UROJET) 10 ML JELLY MM ONE (21:08)
[2019-02-17 21:20] LABS: BASOPHILS % (AUTO) 0.1 % (0.0-2.0); EOSINOPHILS # (AUTO) 0.4 K/uL (0.0-0.7); EOSINOPHILS % (AUTO) 4.3 % (0.0-7.0); HEMATOCRIT 23.9 % (36.7-47.1); HEMOGLOBIN 7.9 g/dL (12.5-16.3); LYMPHOCYTES # (AUTO) 1.3 K/uL (20.0-40.0); LYMPHOCYTES % (AUTO) 13.9 % (20.5-51.5); MEAN CORPUSCULAR HEMOGLOBIN 29.7 uug (23.8-33.4); MEAN CORPUSCULAR HGB CONC 33 g/dL (32.5-36.3); MEAN CORPUSCULAR VOLUME 89.2 fL (73.0-96.2); MONOCYTES % (AUTO) 10.8 % (0.0-11.0); NEUTROPHILS # (AUTO) 6.9 K/uL (1.8-8.9); NEUTROPHILS % (AUTO) 70.9 % (38.5-71.5); PLATELET COUNT (AUTO) 163 K/uL (152-348); RED BLOOD CELL COUNT(AUTO) 2.68 MIL/uL (4.06-5.63); WHITE BLOOD COUNT (AUTO) 9.7 K/uL (3.6-10.2)
[2019-02-17 21:30] LABS: CARBON DIOXIDE 34 mmol/L (21-32); CHLORIDE 94 mmol/L (98-107); CREATININE 5.2 mg/dL (0.6-1.3); GLUCOSE 82 mg/dL (74-106); POTASSIUM 3.6 mmol/L (3.5-5.1); UREA NITROGEN, BLOOD 23 mg/dL (7-18)
[2019-02-17] MEDS ORDERED: DIPH25CA83 PO (21:45)
[2019-02-17] MEDS ORDERED: PROT946L PO (21:45)
[2019-02-17] MEDS ORDERED: CYCL5TAB PO (21:45)
[2019-02-17] MEDS ORDERED: NEPHROCAPS PO (21:45)
[2019-02-17] MEDS ORDERED: BENA40TA8 PO (21:45)
[2019-02-17] MEDS ORDERED: FAMO-132 PO (21:45)
[2019-02-17] MEDS ORDERED: MIRT15TA7 PO (21:45)
[2019-02-17] MEDS ORDERED: BUDE0.5A4 IH (21:45)
[2019-02-17] MEDS ORDERED: ISOS60TA4 PO (21:45)
[2019-02-17] MEDS ORDERED: ALBU2.5V38 IH (21:45)
[2019-02-17] MEDS ORDERED: MAGN30OR PO (21:45)
[2019-02-17] MEDS ORDERED: ESCI10TA PO (21:45)
[2019-02-17] MEDS ORDERED: PANT40TA2 PO (21:45)
[2019-02-17] MEDS ORDERED: IPRA3AMP23 IH (21:45)
[2019-02-17] MEDS ORDERED: METO5TAB87 PO (21:45)
[2019-02-17] MEDS ORDERED: CLON0.1T PO (21:45)
[2019-02-17] MEDS ORDERED: LABE200T5 PO (21:45)
[2019-02-17] MEDS ORDERED: HYDR2TAB4 PO (21:45)
[2019-02-17] MEDS ORDERED: ACET325T53 PO (21:45)
[2019-02-17] MEDS ORDERED: MELA3TAB63 PO (21:45)
[2019-02-17] MEDS ORDERED: GUAI5SYR PO (21:45)
[2019-02-17] MEDS ORDERED: DRON2.5C PO (21:45)
[2019-02-17] MEDS ORDERED: HYPR15DR4 OP (21:45)
[2019-02-17] MEDS ORDERED: PARO-154 PO (21:45)
[2019-02-17] MEDS ORDERED: NIFE60TA2 PO (21:45)
[2019-02-17] MEDS ORDERED: SENN-166 PO (21:45)
[2019-02-17] MEDS ORDERED: ONDA4TAB5 PO (21:45)
[2019-02-17] MEDS ORDERED: HYDR-4384 PO (21:45)
[2019-02-17] MEDS ORDERED: SEVE800T8 PO (21:45)
[2019-02-17 21:56] LABS: ALANINE AMINOTRANSFERASE < 6 U/L (16-63); ALKALINE PHOSPHATASE 81 U/L (50-136); ASPARTATE AMINOTRANSFERASE 13 U/L (15-37); BILIRUBIN,DIRECT 0.3 mg/dL (0.0-0.2); BILIRUBIN,TOTAL 1.1 mg/dL (0.2-1.0); LIPASE 67 U/L (73-393); TOTAL PROTEIN, SERUM 12.6 g/dL (6.4-8.2)
--- NOTE | 2019-02-17 22:13 | NUR ---
Paged Brett SILVESTRE tactical air control party manager. Waiting for Dr Valencia .
--- NOTE | 2019-02-17 22:16 | NUR ---
Dr Miller speaking with Dr Mcduffie.
[2019-02-17] MEDS ORDERED: CEFTRIAXONE 1 G VIAL ONE (22:32)
[2019-02-17] MEDS ORDERED: NALOXONE HCL 0.4 MG/ML AMPUL ONE (22:38)
--- NOTE | 2019-02-17 23:00 | NUR ---
Patient sleeping with no distress noted.
[2019-02-17] MEDS: CEFTRIAXONE 1 G VIAL IM ONE (23:12)
--- NOTE | 2019-02-18 01:05 | NUR ---
Gave SBAR report to [facility] unit [facility] who will transport patient back to [facility].
--- NOTE | 2019-02-18 01:06 | NUR ---
Gave SBAR report to charge nurse at [facility] rehab.
--- NOTE | 2019-02-18 01:14 | NUR ---
D/C'ed back to [facility] via [facility] with no distress noted.
[2019-02-18 01:15] VITALS: BP 145/62
== END 2019-02-18 01:20 | disposition home or self-care (01) ==
LOC: ER 20:24
DX: G89.4 Chronic pain syndrome (principal); N18.6 End stage renal disease; Z99.2 Dependence on renal dialysis; F12.10 Cannabis abuse, uncomplicated; Z79.899 Other long term (current) drug therapy; Z79.2 Long term (current) use of antibiotics
CPT/HCPCS: 36415; 80048; 80076; 83690; 85025; 96372; 99283; J0696; A4663; C1758; J2310

== ENCOUNTER 2019-03-02 18:51 | Emergency (ER) | payer OTHER ==
[~2019-03-02] VITALS: Ht 162.6 cm; Wt 59.0 kg
[~2019-03-02 18:51] MED LIST changes: -BENA40TA67 PO; +BENA40TA8 PO; -CEFE1PIG3 IV; +CYCL5TAB PO; +DIPH25CA83 PO; +DRON2.5C PO; -DRON2.5C11 PO; -FOLI0.8T23 PO; +GUAI5SYR PO; -HEPA500034 SQ; -HYDR-894 PO; +METO5TAB87 PO; -MINO2.5T PO; +NEPHROCAPS PO; -ONDA4TAB10 PO; +ONDA4TAB5 PO; +PANT40TA2 PO; +PARO-154 PO; -PROT30LI PO; +PROT946L PO; +SENN-166 PO; -SENN-18 PO
[2019-03-02] MEDS ORDERED: HYDROMORPHONE HCL 2 MG TABLET PO ONE (19:15)
[2019-03-02] MEDS ORDERED: CALC667C6 PO (19:29)
[2019-03-02] MEDS ORDERED: MIRT15TA7 PO (19:29)
[2019-03-02] MEDS ORDERED: METO5TAB87 PO (19:29)
[2019-03-02] MEDS ORDERED: NEPHROCAPS PO (19:29)
[2019-03-02 19:38] LABS: BASOPHILS % (AUTO) 0.4 % (0.0-2.0); EOSINOPHILS # (AUTO) 0.5 K/uL (0.0-0.7); EOSINOPHILS % (AUTO) 8.8 % (0.0-7.0); HEMATOCRIT 22.3 % (36.7-47.1); HEMOGLOBIN 7.5 g/dL (12.5-16.3); LYMPHOCYTES # (AUTO) 1.3 K/uL (20.0-40.0); MEAN CORPUSCULAR HEMOGLOBIN 30.1 uug (23.8-33.4); MEAN CORPUSCULAR HGB CONC 34 g/dL (32.5-36.3); MONOCYTES # (AUTO) 0.7 K/uL (2.0-10.0); MONOCYTES % (AUTO) 12.1 % (0.0-11.0); NEUTROPHILS # (AUTO) 3.4 K/uL (1.8-8.9); NEUTROPHILS % (AUTO) 56.7 % (38.5-71.5); PLATELET COUNT (AUTO) 229 K/uL (152-348)
[2019-03-02 19:40] LABS: RED BLOOD CELL COUNT(AUTO) 2.47 MIL/uL (4.06-5.63)
[2019-03-02] MEDS ORDERED: HYDROMORPHONE HCL 2 MG TABLET ONE (19:46)
[2019-03-02 19:47] LABS: CREATININE 6.5 mg/dL (0.6-1.3); POTASSIUM 3.8 mmol/L (3.5-5.1)
[2019-03-02 20:01] LABS: BILIRUBIN,DIRECT 0.3 mg/dL (0.0-0.2); BILIRUBIN,TOTAL 0.9 mg/dL (0.2-1.0); TOTAL PROTEIN, SERUM 11.5 g/dL (6.4-8.2)
--- NOTE | 2019-03-02 20:45 | NUR ---
dilshad called (SAMPSON )
--- NOTE | 2019-03-02 20:45 | NUR ---
Paged [facility] to transport pt back to [facility]. ETA 60 min.
--- NOTE | 2019-03-02 21:36 | NUR ---
[facility] here to transport pt back to [facility].
--- NOTE | 2019-03-02 21:50 | NUR ---
Report given to Diana at [facility]. Patient discharged to home in stable conditon. Written and verbal after care instructions given. Patient verbalizes understanding of instructions.
[2019-03-02 21:55] VITALS: BP 114/53
== END 2019-03-02 21:55 | disposition home or self-care (01) ==
LOC: ER 18:51
DX: G89.4 Chronic pain syndrome (principal); R10.9 Unspecified abdominal pain; C90.00 Multiple myeloma not having achieved remission; N18.6 End stage renal disease; D53.9 Nutritional anemia, unspecified; M79.652 Pain in left thigh; F12.10 Cannabis abuse, uncomplicated; Z76.5 Malingerer [conscious simulation]; Z99.2 Dependence on renal dialysis; Z79.899 Other long term (current) drug therapy
CPT/HCPCS: 36415; 73551; 83690; 85025; A4663